=== PATIENT | female | born 1985 | race Caucasian/White ===

== ENCOUNTER 2021-11-29 10:45 | Outpatient (CLI) | payer OTHER, SELFPAY ==
--- NOTE | 2021-11-29 11:00 | CRLHL7_ITS ---
For Patients: As a result of the Century Cures Act, medical imaging exams and procedure reports are released immediately into your electronic medical record. You may view this report before your referring provider. If you have questions, please contact your health care provider. INDICATION: PCOS, PELVIC PAIN, LETROZOLE USE COMPARISON: none TECHNIQUE: 2D schwarz scale and color Doppler images were acquired of the pelvis using a transabdominal and transvaginal approach. Spectral Doppler evaluation of the ovaries also performed. FINDINGS: Sonographic images demonstrate a normal size and smooth outer contour of the uterus. Uterus measures 8.3 cm in length by 3.5 cm in AP diameter by 4.3 cm in transverse dimension. The myometrium has a mildly heterogeneous echotexture. A small right fundal uterine fibroid is present measuring 1.1 x 1.0 x 1.1 cm. An additional intramural fibroid is present within the right uterus measuring 1.0 x 0.8 x 0.9 cm. The endometrial lining appears normal and measures 9 mm in composite thickness. The right ovary measures 4.5 x 2.3 x 2.8 cm in size and the left ovary measures 4.4 x 2.5 x 3.2 cm. Multiple peripherally oriented follicles are present. Ovarian volume 15 cc on the right and 18 cc on the left. The ovaries demonstrate normal arterial and venous blood flow on color Doppler analysis. Normal spectral Doppler evaluation of both ovaries. There are no suspicious fluid collections within the cul-de-sac. IMPRESSION: PCOS. No torsion. No adnexal mass or excess pelvic free fluid. Two small uterine fibroids measuring 1.1 cm and 1.0 cm. Endometrial thickness measuring 9 millimeters. Dictated by Musa Stauffer MD @ 11/29/2021 11:58:03 AM (Electronically Signed)
--- OUTSIDE RECORDS SUMMARY | 2021-12-06 21:46 | XMS_ITS | Encounter Summary ---
:1985 Author Organization [facility] Address [address] [place] [address] Care Team Providers Name Role Phone Kristine Mendez MD Primary Care Provider Reason for Referral Specialty Diagnoses / Procedures Referred By Contact Refer [place] [address] [place] [address] Referral ID Status Reason Start Date Expiration Date Visits Requ ested Visits Authorized Reason for Visit Reason Comments CONSULT Encounter Details Date Type Department Care Team Description 01/02/2014 Initial Consult [facility] [address] (Primary Dx); Endocrinology JOHN Amato Thyroid mass; [address] Scanty or infrequent menstruation; Blvd. Thyroid nodule [place], [place] [id number] Social History Tobacco Use Types Packs/Day Years Used Date Smoking Tobacco: Never Alcohol Use Standard Drinks/Week Comments No 0 (1 standard drink = 0.6 oz pure alcoho l) Sex Assigned at Date Recorded Not on file documented as of this encounter Last Filed Vital Signs Vital Sign Reading Time Taken Comments Blood Pressure 114/74 01/02/2014 12:57 PM CDT Pulse 78 01/02/2014 12:57 PM CDT Temperature - - Respiratory Rate - - Oxygen Saturation - - Inhaled Oxygen Concentration - - Weight 59.9 kg (132 lb) 01/02/2014 12:57 PM CDT Height 177.2 cm (5' 9.75) 01/02/2014 12:57 PM CDT Body Mass Index 19.08 01/02/2014 12:57 PM CDT documented in this encounter Patient Instructions Patient InstructionsGregLima springer MBBS - 01/02/2014 1:34 PM CDT Thank you for enrolling in [employer]. Please follow the instructions below to securely access your online medical record. [employer] allows you to send messages to your doctor, view your test results, renewyour prescriptions, schedule appointments, and more. How Do I Sign Up? 1. In your Internet browser, go to: [email or web address] 2. Click on the Enter Activation Code link under the New User? section. You will see the New Member Sign Up page. 3. Enter your [employer] Activation Code exactly as it appears below. You will not need to use this code after you???ve completed the sign-up process. If you do not sign up before the expiration date, youmust request a new code. [employer] Activation Code: [email or web address] Expires: 02/01/2014 12:59 PM 4. Enter your Date of (mm/dd/yyyy), Home Phone Number and Zip Code as indicated, then click Next. You will be taken to the next sign-up page 5. Create a [employer] ID. This will be your [employer] login ID and cannot be changed, so think of one that is secure and easy to remember. 6. Create a [employer] password. You can change your password at any time. 7. Enter your Security Question and Answer. This can be used at a later time if you forget your password. Click Next. 8. Enter your e-mail address. You will receive e-mail notification when new information is availablein [employer]. 9. Click Sign In. You can now view your medical record. Additional Information If you have questions, you can call [phone] to talk to our [employer] staff. Remember, [employer] is NOT to be used for urgent needs. For medical emergencies, dial 911. Please make an appointment for thyroid biopsy with either Dr. Magaña or Dr. Khan. labs today. Follow up based on results. documented in this encounter Progress Notes Lima Wallis MBBS - 01/02/2014 4:35 PM CDT Physical exam addendum: Right-sided 3 cm palpable nodule felt on the right thyroid lobe. No discrete palpable thyroid nodules.. Lima Wallis MBBS - 01/02/2014 1:55 PM CDT Images from the original note were not included. Diagnoses and Orders Placed: Diagnosis (ICD9) ICD-9-CM 1. Hirsutism 704.1 2. Thyroid mass 246.9 3. Scanty or infrequent menstruation 626.1 4. Thyroid nodule 241.0 Orders Placed This Encounter Procedures ??? Dehydroepiandrosterone Sulfate ??? Androstenedione ??? 17 Hydroxyprogesterone ??? Testosterone free total females and children ??? Basic Metabolic Panel ??? Prolactin ??? Thyroid Aspiration, FNA with Image Guidance No orders of the defined types were placed in this encounter. Leann Magaña MD - 01/02/2014 1:51 PM CDT Progress Notes signed by Leann Magaña MD at 01/19/14916 Author: Leann Magaña MD Service: (none) Author Type: Physician Filed: 01/19/14916 Note Time: 01/02/14 144 Status: Signed Online Producer: Leann Magaña MD (Physician) NAME: YAMILET LORA MR#: [id number] CSN: [id number] AUTHENTICATING CLINICIAN: JOHN Eaton CONFIRM #: [id number] LOC: 432 CLINIC CONSULTATION DATE OF CONSULTATION: 01/02/2014 : 1985 REQUESTING PHYSICIAN: CHIEF COMPLAINT: Thyroid nodule. HISTORY OF PRESENT ILLNESS: Ms Lora is a 28-year-old female seen by me for the first time in the clinic. Recently patient was evaluated by her PCP for a neck lump that was found out initially by her mother. Later, she had a thyroid ultrasound on 01/01/2014 which showed a single large 2.7 x 1.9 cm mixed echogenic nodule at the right middle mid thyroid lobe. Since then, patient also had been noticing it. She denies any neck pressure symptoms such as trouble swallowing, trouble breathing, she is choking, coughing. Patient also had recent thyroid function tests which are within the normal range, and a TPO antibodyis still pending. She denies any excessive fatigue, temperature intolerance, bowel symptoms. She reports that her sleep is good. She denies any heart palpitations, jitteriness, shaking. Currently, she denies the intake of any ckzh-nea-rktxrzc thyroid or iodine products. She denies history of radiationto the head or neck. FAMILY HISTORY: She denies any family history of thyroid cancer or any other thyroid problems. In terms of menstrual history, patient has had irregular menstrual periods since her teenage. She was on control medications for a year a few years ago, and then again she was on Loestrin last year but that was stopped after a year. Sometimes she feels that she is not able to tolerate the control medications very well because of the upset stomach. Currently, she is not planning to conceive in the next 2-3 years. She also reports excessive hair growth on the face, mostly on the chin and the side bones, lower abdomen and sometimes on the breasts which are noted mostly thick and dark. These have been going on since her college time and has been stable. She denies any voice changes. She reports on and off acne onthe face. She denies any hair loss from the scalp. She denies any history of diabetes mellitus or impaired glucose tolerance, hyperlipidemia. She reports that both her elder sister and younger sister have irregular menstrual periods and they both were diagnosed with polycystic ovarian syndrome. None of her sisters have kids so far. PAST MEDICAL HISTORY: No other medical problems. PAST SURGICAL HISTORY: [place] tooth extraction. FAMILY HISTORY: Reviewed and updated in [facility]. SOCIAL HISTORY: Reviewed and updated in [facility]. MEDICATIONS: Reviewed and updated in [facility]. ALLERGIES: Reviewed and updated in [facility]. REVIEW OF SYSTEMS: All the 12 systems are reviewed and are negative except those discussed in HPI. EXAM: VITAL SIGNS: 114/74, pulse of 78, weight of 132 pounds. GENERAL: Alert, cooperative, no distress, appears stated age. No cushingoid features. OROPHARYNX: Normal findings: Buccal mucosa normal. EYES: Conjunctivae/corneas clear. PERRL, EOM's intact. EARS: Normal. NECK: Supple, symmetrical, trachea midline, no adenopathy, no carotid bruit and no JVD. THYROID: Not enlarge, symmetric, no tenderness, no palpable nodule. LUNGS: Clear to auscultation. HEART: Regular rate and rhythm, S1, S2 normal, no murmur, click, rub or gallop. ABDOMEN: Soft, non-tender; bowel sounds normal; no masses, no organomegaly. No abdominal striae noted. EXTREMITIES: Normal, atraumatic, no cyanosis or edema. SKIN: Warm and dry. No hyperpigmentation, vitiligo, or suspicious lesions. PULSES: 2+ and symmetric. NEURO: Normal without focal findings. Mental status, speech normal, alert and oriented x3. Reflexes normal and symmetric. On the skin there are multiple hair shafts that are shaved noted on the chin and on the side bones and also on the lower abdomen. LABS: Reviewed in [facility]. Recent TSH was 1.31 on 01/01/2014. PLAN: 1. Right-sided thyroid nodule. 2. Hirsutism. 3. Scanty irregular menstrual periods every 60-90 days. 4. Family history of PCOS. ASSESSMENT: 1. For right-sided thyroid nodule today, I did show her the thyroid ultrasound and discussed about the nodule, progression of the thyroid nodules. I would like to proceed with FNA and she will and follow up will be based upon the results. I did discuss about the procedure of the FNA and the different kinds of results associated with it. 2. For hirsutism, scanty, irregular menstrual periods. I would like to check all her androgens alongwith the prolactin. If she has any high level of androgens I would like to start her on control medication along with spironolactone. Today, I discussed in detail about the side effects of control pills along with spironolactone. She needs to have another potassium check if in 1 week if she were to start her on spironolactone. Also discussed that spironolactone may take about 4-6 months for her to see any change in the hair growth on the face. 3. Today and based upon her body habitus, my suspicion for Leia's is very low so I am not screening her for subclinical [place]'s. Total time 60 minutes. More than half of the time was counseling time regarding the thyroid nodule and also the diagnosis of PCOS. SP:MEDQ C: CONFIRM #: [id number] documented in this encounter Plan of Treatment Not on filedocumented as of this encounter Visit Diagnoses Diagnosis Hirsutism - Primary Thyroid mass (HRC) Unspecified disorder of thyroid Scanty or infrequent menstruation Thyroid nodule (HRC) Nontoxic uninodular goiter documented in this encounter Care Teams Elevator Constructor Supervisor Relationship Specialty Start Date End Date Kristine Mendez MD PCP - General 01/01/14 [address] [place] [address] documented as of this encounter
--- OUTSIDE RECORDS SUMMARY | 2021-12-06 21:46 | XMS_ITS | Encounter Summary ---
:1985 Author Organization [facility] Address [address] [place] [address] Care Team Providers Name Role Phone Kristine Mendez MD Primary Care Provider Reason for Visit Reason Comments RESULTS, TEST Encounter Details Date Type Department Care Team Description 01/01/2014 Telephone [facility] Pete Mendez MD RESULTS, TEST Medicine [address] [facility] [address] [place] [address] [place] [address] [phone] Social History Tobacco Use Types Packs/Day Years Used Date Smoking Tobacco: Never Alcohol Use Standard Drinks/Week Comments No 0 (1 standard drink = 0.6 oz pure alcoho l) Sex Assigned at Date Recorded Not on file documented as of this encounter Nursing Notes Kristine Mendez MD - 01/01/2014 12:29 PM CDT Thyroid US confirms large 2.7x1.9 cm right thyroid nodule, discussed with patient, she has Endo apptset up tomorrow to further discuss timing of biopsy, as this nodule seemed to arise rapidly in past 3 weeks and has reportedly enlarged further since that time. She had no questions. documented in this encounter Plan of Treatment Not on filedocumented as of this encounter Visit Diagnoses Not on filedocumented in this encounter Care Teams Telegraph Printer Mechanic Relationship Specialty Start Date End Date Kristine Mendez MD PCP - General 01/01/14 [address] [address] [place] [address] documented as of this encounter
--- OUTSIDE RECORDS SUMMARY | 2021-12-06 21:46 | XMS_ITS | Encounter Summary ---
:1985 Author Organization [employer] Address [address] [place] [address] Care Team Providers Name Role Phone Kristine Mendez MD Primary Care Provider Encounter Details Date Type Department Care Team Description 01/02/2014 Lab Visit [facility] [address] Thyroid m ass; Laboratory Hirsutism; [facility] Scanty or infrequent menstru ation; [place] [address] Thyroid nodule [phone] Social History Tobacco Use Types Packs/Day Years Used Date Smoking Tobacco: Never Alcohol Use Standard Drinks/Week Comments No 0 (1 standard drink = 0.6 oz pure alcoho l) Sex Assigned at Date Recorded Not on file documented as of this encounter Plan of Treatment Not on filedocumented as of this encounter Procedures Procedure Name Priority Date/Time Associated Comments Diagnosis DEHYDROEPIANDROSTERONE Routine 01/02/2014 1:52 Thyroid m ass Results for SULFATE PEDS PM CDT Hirsutism this procedure Scanty or are in the infrequent results menstruation section. Thyroid nodule ANDROSTENEDIONE Routine 01/02/2014 1:52 Thyroid mass Results for PM CDT Hirsutism this procedure [place] or are in the infrequent results menstruation section. Thyroid nodule 17 HYDROXYPROGESTERONE Routine 01/02/2014 1:52 Thyroid m ass Results for PM CDT Hirsutism this procedure [place] or are in the infrequent results menstruation section. Thyroid nodule TESTOSTERONE FREE AND TOTAL, Routine 01/02/2014 1:52 Thy roid mass Results for FEMALE OR CHILDREN PM CDT Hirsutism this procedure Sc[place]y or are in the infrequent results menstruation section. Thyroid nodule BASIC METABOLIC PANEL Routine 01/02/2014 1:52 Thyroid ma ss Results for PM CDT Hirsutism this procedure [place] or are in the infrequent results menstruation section. Thyroid nodule PROLACTIN Routine 01/02/2014 1:52 Thyroid mass Results for PM CDT Hirsutism this procedure [place] or are in the infrequent results menstruation section. Thyroid nodule documented in this encounter Results Prolactin (01/02/2014 1:52 PM CDT) athologist Signature Prolactin 7.3 2.8 - 29.2 HP CONVERSION ng/mL Specimen Anatomical Collection Method Collection Time Receive d Time (Source) Location / / Volume Laterality 01/02/2014 1:52 PM 4 4:10 CDT PM CDT [facility] Performing Organization Address City/State/ZIP Code Phon e Number HP CONVERSION Basic Metabolic Panel (01/02/2014 1:52 PM CDT) athologist Signature Creatinine Serum 0.8 0.4 - 1.3 HP CONVERSION mg/dL Lab Glucose 99 60 - 100 HP CONVERSION mg/dL Bicarbonate 28 23 - 33 HP CONVERSION mmol/L Chloride 108 98 - 110 HP CONVERSION Potassium 3.8 3.5 - 5.2 HP CONVERSION Sodium 139 137 - 147 HP CONVERSION Blood Urea <10 5 - 26 HP CONVERSION Nitrogen mg/dL Calcium 8.9 8.5 - 10.5 HP CONVERSION mg/dL Est GFR >60 >60 HP CONVERSION Am Est GFR Non-Afr >60 >60 HP CONVERSION Am Comment: Normal>60, moderate decrease 30 - 59, se mirta decrease 15 - 29, renal failure <15 mL/min/1.73 m2 NOTE: ??Choose the eGFR result above antwon ropriate for the race of the patient. Specimen Anatomical Collection Method Collection Time Receive d Time (Source) Location / / Volume Laterality 01/02/2014 1:52 PM 4 1:52 CDT PM CDT Narrative HP CONVERSION - 01/02/2014 2:31 PM CDT Performed at [facility], [address] [place] [id number] Lima Carterjuan jose [facility] LAB_1 Performing Organization Address City/[facility]/ZIP Code Phon e Number HP CONVERSION TESTOSTERONE FREE TOTAL FEMALES AND CHILDREN (01/02/2014 1:52 PM CDT) Analysis Performed At [facility] Time Signature Testosterone 36 9 - 55 HP CONVERSION Female or ng/dL Children Comment: Total Testosterone, Females 18 years and older Premenopausal ??9-55 ng/dL Postmenopausal 5-32 ng/dL REFERENCE INTERVAL: Testosterone, LC-MS/ MS Access complete set of age- and/or gende r-specific reference intervals for this test in the [employer] Test Directory ([employer]). Test developed and characteristics deter mined by [employer]. See Compliance Statement B : [employer]/CS Testosterone Free Female and Child 3.6 0.8 - 7.4 pg/mL HP CONVERSION Comment: To convert to pmol/L, multiply pg/mL by 3.47 The concentration of Free Testosterone i s derived from a mathematical expression based on the con stant for the binding of testosterone to sex hormone b inding globulin. Testosterone, Free LC-MS/MS Reference In terval for Females 18 years and older Postmenopausal: 0.6 - 3.8 pg/mL REFERENCE INTERVAL: Testosterone, Free L C-MS/MS Access complete set of age- and/or gende r-specific reference intervals for this test in the [employer] [facility] Test Directory ([employer]). Sex Hormone Binding Globulin 72 30 - 135 nmol/L HP CONVERSION Comment: REFERENCE INTERVAL: Sex Hormone Binding Globulin Access complete set of age- and/or gende r-specific reference intervals for this test in the [employer] [facility] Test Directory ([employer]). Specimen Anatomical Collection Method Collection Time Receive d Time (Source) Location / / Volume Laterality 01/02/2014 1:52 PM 4 4:10 CDT PM CDT Narrative HP CONVERSION - 01/05/2014 4:30 AM CDT Performed at [facility] [address] [place] [address] Lima Garzagian [facility] LAB_1 Performing Organization Address City/[facility] Code Phon e Number HP CONVERSION 17 HYDROXYPROGESTERONE (01/02/2014 1:52 PM CDT) athologist Signature 17-Hydroxyproge 51 ng/dL HP CONVERSION sterone, Serum Comment: -- REFERENCE VALUE -- < 80 (Follicular) <285 (Luteal) Specimen Anatomical Collection Method Collection Time Receive d Time (Source) Location / / Volume Laterality 01/02/2014 1:52 PM 4 4:10 CDT PM CDT Narrative HP CONVERSION - 01/06/2014 5:45 PM CDT Performed at [facility] [address] [place] [id number] Lima Garzagian [facility] LAB_1 Performing Organization Address [facility] Phon e Number HP CONVERSION ANDROSTENEDIONE (01/02/2014 1:52 PM CDT) athologist Signature Androstenedione 1.250 0.260 - HP CONVERSION 2.140 ng/mL Comment: INTERPRETIVE INFORMATION: Androstenedion e, Females 18 years and older Post-menopausal: 0.13-0.82 ng/mL REFERENCE INTERVAL: Androstenedione by T MS Access complete set of age- and/or gende r-specific reference intervals for this test in the [employer] [facility] Test Directory ([employer]). Test developed and characteristics deter mined by [employer]. See Compliance Statement B : [employer]/CS Specimen Anatomical Collection Method Collection Time Receive d Time (Source) Location / / Volume Laterality 01/02/2014 1:52 PM 4 5:01 CDT PM CDT Narrative HP CONVERSION - 01/04/2014 6:34 PM CDT Performed at [facility] [address] [place] [address] Jayashreeivan Kadi [facility] LAB_1 Performing Organization Address [facility] Phon e Number HP CONVERSION DEHYDROEPIANDROSTERONE SULFATE PEDS (01/02/2014 1:52 PM CDT) Component Value Ref Test Analysis Performed At [facility] Range Method Time Signature Dehydroepiandrosterone 172 45 - 270 HP CONV ERSION Sulfate ug/dL Comment: REFERENCE INTERVAL: DHEAS Access complete set of age- and/or gende r-specific reference intervals for this test in the [employer] [facility] Test Directory ([employer]). Specimen Anatomical Collection Method Collection Time Receive d Time (Source) Location / / Volume Laterality 01/02/2014 1:52 PM 4 5:01 CDT PM CDT Narrative HP CONVERSION - 01/04/2014 9:05 AM CDT Performed at [facility] [address] [place] [address] Liam Garzagian [facility] Performing Organization Address City/State/ZIP Code Phon e Number HP CONVERSION documented in this encounter Visit Diagnoses Diagnosis Thyroid mass (HRC) Unspecified disorder of thyroid Hirsutism Scanty or infrequent menstruation Thyroid nodule (HRC) Nontoxic uninodular goiter documented in this encounter Care Teams International Flight Attendant Relationship Specialty Start Date End Date Kristine Mendez MD PCP - General 01/01/14 [address] [place] [address] documented as of this encounter
--- OUTSIDE RECORDS SUMMARY | 2021-12-06 21:46 | XMS_ITS | Encounter Summary ---
:1985 Author Organization [employer] [facility] Address [address] [place] [address] Care Team Providers Name Role Phone Kristine Mendez MD Primary Care Provider Reason for Visit Procedure/Equipment (Routine) - Canceled Specialty Diagnoses / Procedures Referred By Contact Refer red To Contact Diagnoses Left breast mass Madeleine Page, NET APPLICATION SUPPORT SPECIALIST, PERSONAL COACH [place] [address] [place] [address] Referral ID Status Reason Start Date Expiration Date Visits V isits Requested Authorized [id number] Canceled 05/28/2019 08/26/2020 1 1 Encounter Details Date Type Department Care Team Description 06/03/2019 Ancillary Procedure [facility] [address] Madeleine Page , Left breast mass Mammography NET APPLICATION SUPPORT SPECIALIST, PERSONAL COACH [address] [facility] [address] [place] [address] [phone] Social History Tobacco Use Types Packs/Day Years Used Date Smoking Tobacco: Never Smokeless Tobacco: Never Alcohol Use Standard Drinks/Week Comments Yes 0 (1 standard drink = 0.6 oz pure alcoho l) 1-2/week Alcohol Habits Answer Date Recorded How often do you have a drink containing alcohol? Not asked How many drinks containing alcohol do you have on a typical Not asked day when you are drinking? How often do you have six or more drinks on one occasion? No t asked Comment: 1-2/01/10/2019 Sex Assigned at Date Recorded Not on file documented as of this encounter Plan of Treatment Not on filedocumented as of this encounter Visit Diagnoses Diagnosis Left breast mass Lump or mass in breast documented in this encounter Care Teams Tractor Trailer Moving Van Driver Relationship Specialty Start Date End Date Kristine Mendez MD PCP - General 01/01/[address] [place] [address] documented as of this encounter
--- OUTSIDE RECORDS SUMMARY | 2021-12-06 21:46 | XMS_ITS | Encounter Summary ---
:1985 Author Organization [employer] Address [address] [place] [address] Care Team Providers Name Role Phone Kristine Mendez MD Primary Care Provider Encounter Details Date Type Department Care Team Description 04/12/2018 edith Osuna [phone] Social History Tobacco Use Types Packs/Day Years Used Date Smoking Tobacco: Never Smokeless Tobacco: Never Alcohol Use Standard Drinks/Week Comments No 0 (1 standard drink = 0.6 oz pure alcoho l) rare Alcohol Habits Answer Date Recorded How often do you have a drink containing alcohol? Not asked How many drinks containing alcohol do you have on a typical Not asked day when you are drinking? How often do you have six or more drinks on one occasion? No t asked Comment: rare 12/17/2015 Sex Assigned at Date Recorded Not on file documented as of this encounter Progress Notes FAMILY MEDICINEEDITH PROVIDER - 04/12/2018 12:00 AM CST edith Treatment Plan Diagnosis Sinusitis with Ear Pain Visit Date April 12, 2018 Yamilet Foxall Date of : 81 Provider Annie Charles, Nurse Practitioner Note From Provider Michael Woodard! Sorry to hear you are not feeling well. I have attached a treatment plan and sent in a prescription for you! I hope you feel better soon! Annie Treatment Plan Since you have a bacterial infection, let???s try an antibiotic. I???ve also included a prescriptionnasal steroid to reduce your pain and inflammation. The antibiotic and nasal steroid will work effectively on both your sinus and ear symptoms. I sent your prescriptions to [facility] [id number]. I???ve also listed a few self-care tips to reduce inflammation and soothe your symptoms while the antibiotic kills the bacteria. If your symptoms don???t improve after 4 days, or if you have questions, please select Help to Request a Call Back and we???ll adjust your treatment for free. Order(s) amoxicillin 500 mg capsule Take 2 capsule by mouth three times a day as directed for 7 days Note: Refills: None fluticasone 50 mcg/actuation spray,suspension [place] 1-2 spray into both nostrils once a day as needed for 30 days Note: Refills: None Sent To: [id number] [employer] [employer] [place], [place] [id number] Treatment Plan Self Care Tip Topics Ease Sinus Inflammation and Ear Pain with Nasal Steroids Inflammation Relief with Ibuprofen What to Expect Our goal is to treat the infection and reduce inflammation in order to promote drainage to ease yoursinus and ear pain. Reducing inflammation will make you feel better quickly. If you follow the recommendations I made in the Treatment section, your symptoms should begin to improve in 4 days of following this treatment plan. If your symptoms haven???t improved after 4 days, select Help to Request a Call Back and we???ll call you back in about 30 minutes to adjust your treatment for free. What to Watch Out For Give us a call immediately if you experience: ??? Vision changes ??? Redness and swelling of the eyes or face ??? Increasing congestion ??? Worsening pain ??? High fevers ??? Persistent or worsening ear pain ??? Bloody or foul smelling ear drainage ??? Skull pain behind your ear ??? Hearing loss ??? Difficulty swallowing My Conditions, Orders, Allergies as of April 12, 2018 Standard condition list None Current orders fluticasone (fluticasone) amoxicillin (amoxicillin) Allergies None [email or web address] Information [email or web address] by [employer] We are an online clinic open 20/11. If you have any questions or comments about this visit, please call or email [email or web address] 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
--- OUTSIDE RECORDS SUMMARY | 2021-12-06 21:46 | XMS_ITS | Encounter Summary ---
:1985 Author Organization [facility] Address [address] [place] [address] Care Team Providers Name Role Phone Kristine Mendez MD Primary Care Provider Encounter Details Date Type Department Care Team Description 01/01/2014 Lab Visit [facility] Thyroid mass; [address] [facility] Lymphadenopathy [place], [place] [address] Social History Tobacco Use Types Packs/Day Years Used Date Smoking Tobacco: Never Alcohol Use Standard Drinks/Week Comments No 0 (1 standard drink = 0.6 oz pure alcoho l) Sex Assigned at Date Recorded Not on file documented as of this encounter Plan of Treatment Not on filedocumented as of this encounter Procedures Procedure Name Priority Date/Time Associated Diagnosis Comme nts HIV ANTIBODY Routine 01/01/2014 11:02 Lymphadenopathy Results for this AM CDT procedure are i n the results section. THYROID STIMULATING Routine 01/01/2014 11:02 Thyroid mass Resu lts for this HORMONE AM CDT procedure are i n the results section. COMPLETE BLOOD Routine 01/01/2014 11:02 Thyroid mass Results for this COUNT-W/DIFF AM CDT Lymphadenopathy procedure ar e in the results section. DIFFERENTIAL Routine 01/01/2014 11:02 Results for this AM CDT procedure are i n the results section. FREE T4 Routine 01/01/2014 11:02 Thyroid mass Results for this AM CDT procedure are i n the results section. ANTITHYROID Routine 01/01/2014 11:02 Thyroid mass Results for this PEROXIDASE AM CDT procedure are i n the results section. MONO TEST Routine 01/01/2014 11:02 Lymphadenopathy Results for this AM CDT procedure are i n the results section. documented in this encounter Results (ABNORMAL) Differential (01/01/2014 11:02 AM CDT) [facility] Method Time Signature Absolute 1.6 (L) 1.8 - 8.0 HP CONVERSION Neutrophils Absolute 1.6 1.1 - 4.0 HP CONVERSION Lymphocytes Absolute 0.5 0.2 - 0.8 HP CONVERSION Monocytes Absolute 0.3 0.0 - 0.5 HP CONVERSION Eosinophils Absolute 0.1 0.0 - 0.2 HP CONVERSION Basophils Specimen Anatomical Collection Method Collection Time Receive d Time (Source) Location / / Volume Laterality 01/01/2014 11:02 01/01/2014 AM CDT 11:02 AM CDT Narrative HP CONVERSION - 01/01/2014 11:19 AM CDT Performed at [facility] [address] [place] [address] Kristine Mendez MD LAB_1 Performing Organization Address [facility] Phon e Number HP CONVERSION HIV ANTIBODY (01/01/2014 11:02 AM CDT) athologist Signature HIV 1/HIV 2 Non-React Non-Reacti HP CONVERSION ve Specimen Anatomical Collection Method Collection Time Receive d Time (Source) Location / / Volume Laterality 01/01/2014 11:02 01/01/2014 3:54 AM CDT PM CDT Kristine Mendez MD LAB_1 Performing Organization Address [facility] Phon e Number HP CONVERSION Whitman Test (01/01/2014 11:02 AM CDT) [facility] Method Time Signature Mononucleosis Negative Negative HP CONVERSION Screen Specimen Anatomical Collection Method Collection Time Receive d Time (Source) Location / / Volume Laterality 01/01/2014 11:02 01/01/2014 AM CDT 11:02 AM CDT Narrative HP CONVERSION - 01/01/2014 11:14 AM CDT Performed at [facility] [address] [place] [address] Kristine Mendez MD LAB_1 Performing Organization Address [facility] Phon e Number HP CONVERSION Antithyroid Peroxidase (01/01/2014 11:02 AM CDT) athologist Signature Thyroid 2.8 0.0 - 9.0 HP CONVERSION Peroxidase (TPO) Antibodies Specimen Anatomical Collection Method Collection Time Receive d Time (Source) Location / / Volume Laterality 01/01/2014 11:02 01/01/2014 4:01 AM CDT PM CDT Narrative HP CONVERSION - 01/02/2014 2:51 PM CDT Performed at [facility] [address] [place] [id number] Kristine Mendez MD LAB_1 Performing Organization Address City/State/ZIP Code Phon e Number HP CONVERSION Complete Blood Count W/Diff (01/01/2014 11:02 AM CDT) athologist Signature White Blood Cell 4.1 3.8 - 11.0 HP CONVERSIO N Count Red Blood Cell 5.13 3.70 - HP CONVERSION Count 5.20 Hemoglobin 15.0 11.8 - HP CONVERSION 15.5 g/dL Hematocrit 45.3 35.0 - HP CONVERSION 46.0 % Mean Corpuscular 88.1 80.0 - HP CONVERSION Volume 100.0 fL RDW 12.5 11.0 - HP CONVERSION 15.0 % Platelet Count 266 140 - 450 HP CONVERSION Specimen Anatomical Collection Method Collection Time Receive d Time (Source) Location / / Volume Laterality 01/01/2014 11:02 01/01/2014 AM CDT 11:02 AM CDT Narrative HP CONVERSION - 01/01/2014 11:19 AM CDT Performed at [facility] [address] [place] [address] Kristine Mendez MD LAB_1 Performing Organization Address City/State/ZIP Code Phon e Number HP CONVERSION Free T4 (01/01/2014 11:02 AM CDT) athologist Signature Thyroxine, Free 1.1 0.8 - 1.8 HP CONVERSION ng/dL Specimen Anatomical Collection Method Collection Time Receive d Time (Source) Location / / Volume Laterality 01/01/2014 11:02 01/01/2014 3:54 AM CDT PM CDT Kristine Mendez MD LAB_1 Performing Organization Address City/[facility] Phon e Number HP CONVERSION THYROID STIMULATING HORMONE (01/01/2014 11:02 AM CDT) P athologist Signature Thyroid 1.31 0.20 - HP CONVERSION Stimulating 4.50 Hormone Specimen Anatomical Collection Method Collection Time Receive d Time (Source) Location / / Volume Laterality 01/01/2014 11:02 01/01/2014 3:54 AM CDT PM CDT Kristine Mendez MD LAB_1 Performing Organization Address City/State/ZIP Code Phon e Number HP CONVERSION documented in this encounter Visit Diagnoses Diagnosis Thyroid mass (HRC) Unspecified disorder of thyroid Lymphadenopathy Enlargement of lymph nodes documented in this encounter Care Teams Porter Marina Relationship Specialty Start Date End Date Kristine Mendez MD PCP - General 01/01/14 [address] [place] [address]BB[address] [id number] documented as of this encounter
--- OUTSIDE RECORDS SUMMARY | 2021-12-06 21:46 | XMS_ITS | Encounter Summary ---
:1985 Author Organization [facility] Address [address] [place] [address] Care Team Providers Name Role Phone Unavailable Primary Care Provider Unavailable Encounter Details Date Type Department Care Team Description 07/21/2012 Notes/Orders [place] [facility] Jennifer Aguilera, Cystitis [address] [facility] [place] LOADING DOCK HELPER, ALTERNATIVE ENERGY TECHNICIAN [place], [place] [address] Social History Tobacco Use Types Packs/Day Years Used Date Smoking Tobacco: Never Alcohol Use Standard Drinks/Week Comments No 0 (1 standard drink = 0.6 oz pure alcoho l) Sex Assigned at Date Recorded Not on file documented as of this encounter Nursing Notes Kirsten Quiroz RN - 07/23/2012 6:02 PM CDT Quick Note: Result noted Phoned pt Kirsten Quiroz RN 07/23/2012, 6:02 PM Arabella Coles RN - 07/22/2012 6:13 PM CDT Quick Note: Results noted. Started on Bactrim DS. Will await sensitivities.Arabella Coles RN 07/22/2012, 6:13 PM documented in this encounter Plan of Treatment Not on filedocumented as of this encounter Procedures Procedure Name Priority Date/Time Associated Diagnosis Comme nts UA, NO MICROSCOPIC Routine 07/21/2012 12:10 PM Re sults for this CDT procedure are i n the results section. URINE CULTURE Routine 07/21/2012 12:10 PM Cystitis Results for this CDT procedure are i n the results section. documented in this encounter Results (ABNORMAL) UA, NO MICROSCOPIC (07/21/2012 12:10 PM CDT) [facility] [employer] Method Time Signature Urine Color Yellow [facility] Urine Clarity Clear [facility] Sp Gr 1.020 1.005 - [facility] 1.03 Leuk Tr (A) NEG [facility] Nitr Negative NEG [facility] pH 5.0 4.5 - 8.0 [facility] Prot Negative NEG mg/dl [facility] Gluc Negative NEG [facility] Ket Negative NEG [facility] Urob 0.2 0.2 - 1.0 [facility] EU/dl Bili Negative NEG [facility] Blood Tr (A) NEG [facility] Specimen Anatomical Collection Method Collection Time Receive d Time (Source) Location / / Volume Laterality 07/21/2012 12:10 07/21/2012 4:03 PM CDT PM CDT Jennifer Alexis APRN, ALTERNATIVE ENERGY TECHNICIAN LAB_1 Performing Organization Address City/State/ZIP Code Phon e Number [facility] [phone] [address] URINE CULTURE (07/21/2012 12:10 PM CDT) Component Value Ref Test Analysis Performed At [facility] [employer] Range Method Time Signature Specimen Urine [facility] Description Midstream Special Unspecified [facility] Requests Culture > 100,000 [facility] col/ml Escherichia coli Report Status Final [facility] 07/23/2012 Organism > 100,000 [facility] col/ml Escherichia coli Specimen Anatomical Collection Method Collection Time Receive d Time (Source) Location / / Volume Laterality 07/21/2012 12:10 07/21/2012 4:01 PM CDT PM CDT Organism Antibiotic Method Susceptibility > 100,000 col/ml Amox/K Clavulanate YADI <=8/4 escherichia coli Susceptible SUSCEPTIBLE > 100,000 col/ml Ampicillin YADI >16 escherichia coli Resistant Resistant > 100,000 col/ml Ampicillin/Sulbactam YADI >16/8 escherichia coli Resistant Resistant > 100,000 col/ml Cefazolin YADI <=8 escherichia coli Susceptible SUSCEPTIBLE > 100,000 col/ml Cephalexin YADI 16 escherichia coli Intermediate Intermediate > 100,000 col/ml Ciprofloxacin YADI >2 escherichia coli Resistant Resistant > 100,000 col/ml Gentamicin YADI <=1 escherichia coli Susceptible SUSCEPTIBLE > 100,000 col/ml Nitrofurantoin YADI <=32 escherichia coli Susceptible SUSCEPTIBLE > 100,000 col/ml Piper/tazobactam YADI <=16 escherichia coli Susceptible SUSCEPTIBLE > 100,000 col/ml Tetracycline YADI >8 escherichia coli Resistant Resistant > 100,000 col/ml Trimethoprim YADI >8 escherichia coli Resistant Resistant > 100,000 col/ml Trimeth/Sulfa YADI >2/38 escherichia coli Resistant Resistant Jennifer Alexis APRN, CNP LAB_1 Performing Organization Address City/State/[facility] Code [facility] e Number [facility] [phone] [address] documented in this encounter Visit Diagnoses Diagnosis Cystitis Cystitis, unspecified documented in this encounter
--- OUTSIDE RECORDS SUMMARY | 2021-12-06 21:46 | XMS_ITS | Encounter Summary ---
:1985 Author Organization [facility] Address [address] [place] [address] Care Team Providers Name Role Phone Kristine Mendez MD Primary Care Provider Reason for Visit Reason Comments BREAST LUMP Encounter Details Date Type Department Care Team Description 05/23/2019 Nurse Triage [facility] Tiana Mcfarlane, DO BREAST LUMP Services-CUPOLA LINER HELPER [address] [facility] Ad [id number] [place] [address], [address] [place] [address] [place] [address] [phone] Social History Tobacco Use Types Packs/Day Years [...] on one occasion? No t asked Comment: 1-2/week 01/10/2019 Sex Assigned at Date Recorded Not on file documented as of this encounter Nursing Notes Bianca Penn RN - 05/23/2019 8:07 AM CST Reason for Disposition ??? Breast lump Protocols used: BREAST [id number] Non-tender, dime sized, slightly mobile breast lump at 12:00 slightly above areola in left breast. First noticed last night. No fam hx of breast cancer. Pt denies hx of benign breast lumps but underwriter mortgage loan noticed in hx in same breast. Denies redness, warmth, nipple discharge or flaking of nipple. Appointment made per protocol. Problem list reviewed as related to this call. Future Appointments Provider Department Center 05/23/2019 10:30 AM Madeleine Page APRN, DATA ANALYTICS SPECIALIST [facility]-CUPOLA LINER HELPER PN [facility] [place] documented in this encounter Plan of Treatment Not on filedocumented as of this encounter Visit Diagnoses Not on filedocumented in this encounter Care Teams Ivf Embryologist Relationship Specialty Start Date End Date Kristine Mendez MD PCP - General 01/01/[address] [place] [address] documented as of this encounter
--- OUTSIDE RECORDS SUMMARY | 2021-12-06 21:46 | XMS_ITS | Encounter Summary ---
:1985 Author Organization [employer] Address [address] [place] [address] Care Team Providers Name Role Phone Unavailable Primary Care Provider Unavailable Reason for Visit Reason Comments INFECTION, URINARY TRACT Encounter Details Date Type Department Care Team Description 07/21/2012 Office Visit [facility] Cystitis (Primary Dx) [address] [place], [place] [address] Social History Tobacco Use Types Packs/Day Years Used Date Smoking Tobacco: Never Alcohol Use Standard Drinks/Week Comments No 0 (1 standard drink = 0.6 oz pure alcoho l) Sex Assigned at Date Recorded Not on file documented as of this encounter Last Filed Vital Signs Vital Sign Reading Time Taken Comments Blood Pressure - - Pulse - - Temperature 37.1 ??C (98.8 ??F) 07/21/2012 12:21 PM CDT Respiratory Rate 20 07/21/2012 12:21 PM CDT Oxygen Saturation 100% 07/21/2012 12:21 PM CDT Inhaled Oxygen Concentration - - Weight 55.8 kg (123 lb) 07/21/2012 12:21 PM CDT Height - - Body Mass Index 18.03 09/15/2011 1:05 PM CDT documented in this encounter Patient Instructions Patient InstructionsNahomi Diane, ASAD, BURN NURSE - 07/21/2012 12:38 PM CDT Cystitis You have been diagnosed with cystitis which means your bladder is inflamed or irritated. This can becaused by infection (UTI), reactions to certain drugs, radiation therapy, or irritants such as feminine hygiene spray, spermicidal jellies, bubble bath or use of catheters. Symptoms can be similar to those of a UTI such as pain or burning when you urinate, a persistent or strong urge to urinate, only able to pass small amounts of urine, blood in the urine, discomfort in the pelvic area, a feeling of pressure in the lower abdomen, or developing incontinence or inability to hold your urine. If you were directed to take medication please do so. Read and follow all instructions from the international sourcing manager before using. In order to keep yourself more comfortable you should: ?? Drink plenty of fluids ?? Urinate frequently ?? Gently wash the skin around the vagina and anus. Do not use harsh soaps ?? Avoid using deodorant sprays or feminine products in the genital area ?? Avoid using bubble bath ?? Place a heating pad over the lower abdomen ?? Take a Sizt bath. Soak in a tub of warm water for 15-20 minutes. Depending on your symptoms and laboratory findings you may be referred to a specialist or your primary care provider for follow up. If you were referred to a specialist or primary care if you do not have a provider, you should be hearing form them in a few days. If you do not, please call the number below to make an appointment. Call or seek medical attention IMMEDIATELY if: ?? You or your child develop become unable to urinate ?? You or your child develop sever abdominal or back pain ?? You or your child develop sever nausea and vomiting Call the clinic or nurse line if: ?? You or your child develop a fever ?? The urine becomes cloudy or smelly ?? documented in this encounter Progress Notes Nahomi Diane APRN, CNP - 07/21/2012 4:06 PM CDT Addended by: NAHOMI MAYNARD on: 07/21/2012 04:06 PM Modules accepted: Orders, SmartSet Nahomi Diane APRN, CNP - 07/21/2012 4:06 PM CDT Nahomi Diane APRN, CNP - 07/21/2012 12:38 PM CDT Subjective Yamilet LORA is a 27 yr old female here with no one else, who presents with the complaint of increased frequency of urination, urgency and pain while voiding for 1 week. Patient states that she started having symptoms sunday and call the online clinic, she was prescribe a 3 day course of bactrim DS which she completed. Three days after completion of the antibiotic patient started to have mild urinary symptoms again and she states that symptoms are worsening. Course of treatment might have been short So infection was not totally clear but after the first Antibiotic treatment, symptoms was reduce from moderate to mild. HPI Yamilet LORA has treated symptoms at home with increased fluids. This has not helped. Patients also has no other symptoms. PMH Previous UTI YES . Last menstrual period was in may , patient state that she has been on control and recently stop so her menses are irregular but she is sure that she is not . Usingother form of control More than 4 UTI???s in a year No History of Renal Disease No Diabetes No Have you been hospitalized or had a surgical procedure within the past 2 weeks: NO ROS : NO, LMP: Medications: No current outpatient prescriptions on file. Allergies: Review of patient's allergies indicates no known allergies. Objective Vitals: Temp 98.8 ??F (37.1 ??C) Resp 20 Wt 123 lb (55.792 kg) SpO2 100% LMP 06/21/2012 General Apearance: in no acute distress, appears stated age, is appropriately dressed, speaks appropriately and alert Abdomen: Inspection flat Auscultation normal bowel sounds Tenderness none Masses none Organomegaly none CVA tenderness Not present UC: pending Assessment Cystitis Plan Another three days course of antibiotic was given to help clear infection. Test result shows trace amount of leukocyte And blood. See patient education and prescribed medications documented in this encounter Plan of Treatment Not on filedocumented as of this encounter Results URINE CULTURE (07/21/2012 12:10 PM CDT) Component Value Ref Test Analysis Performed At [facility] Range Method Time Signature Specimen [facility]rine [facility] Description Midstream Special Unspecified [facility] Requests Culture > 100,000 [facility] col/ml Escherichia coli Report Status Final [facility] 07/23/2012 Organism > 100,000 [facility] col/ml Escherichia coli Specimen Anatomical Collection Method [...] Trimeth/Sulfa YADI >2/38 escherichia coli Resistant Resistant Nahomi Alexis APRN, CNP LAB_1 Performing Organization Address City/State/ZIP Code [facility] e Number [facility] [phone] [address] documented in this encounter Visit Diagnoses Diagnosis Cystitis - Primary Cystitis, unspecified documented in this encounter
--- OUTSIDE RECORDS SUMMARY | 2021-12-06 21:46 | XMS_ITS | Encounter Summary ---
:1985 Author Organization [employer] Address [address] [place] [address] Care Team Providers Name Role Phone Unavailable Primary Care Provider Unavailable Reason for Visit Reason Comments Refill Encounter Details Date Type Department Care Team Description 07/31/2013 Refill Apolonia Martell MD Refill [address] [place] [address] [place] [address] [phone] (Wo rk) Social History Tobacco Use Types Packs/Day Years Used Date Smoking Tobacco: Never Alcohol Use Standard Drinks/Week Comments No 0 (1 standard drink = 0.6 oz pure alcoho l) Sex Assigned at Date Recorded Not on file documented as of this encounter Nursing Notes Shama Bullock - 08/04/2013 3:11 PM CDT [facility] to schedule a physical appt. Advised rx faxed for 28 days.Advised to call [phone] to schedule.DS Chanel Herman PA-C - 08/04/2013 8:46 AM CDT 28 faxed. Appt is needed. Jesica Peña - 08/02/2013 5:46 PM CDT Please advise on refill. Last qualifying visit with Chanel Herman PA-C 09/15/11. Due for oral contraceptive visit. No appointment scheduled at this time. Please advise refill and route to frontline for refill appt Requested Prescriptions Pending Prescriptions Disp Refills ??? norethindrone-ethinyl estradiol (MICROGESTIN FE 05/19, 28,) 1-20 mg-mcg per tablet [Pharmacy Med Name: MICROGESTIN FE 05/19 TAB ACTA] 84 tablet 0 Sig: Take 1 tablet by mouth daily (every 24 hours). documented in this encounter Plan of Treatment Not on filedocumented as of this encounter Visit Diagnoses Not on filedocumented in this encounter
--- OUTSIDE RECORDS SUMMARY | 2021-12-06 21:46 | XMS_ITS | Encounter Summary ---
:1985 [facility] Address [address] [place] [address] Care Team Providers Name Role Phone Kristine Mendez MD Primary Care Provider Reason for Referral Procedure/Equipment (Routine) - Incomplete Specialty Diagnoses / Procedures Referred By Contact Refer red To Contact Diagnoses Left breast mass Madeleine Page APRN, ENVIRONMENTAL HEALTH TECHNOLOGIST Procedures [place] [address] [place] [address] Referral ID Status Reason Start Date Expiration Date Visits V isits Requested Authorized [id number] Incomplete 05/23/2019 08/21/2020 1 1 N'S STUDIES LECTURER Procedure/Equipment (Routine) - Incomplete Specialty Diagnoses / Procedures Referred By Contact Refer red To Contact Diagnoses Left breast mass Madeleine Page APRN, ENVIRONMENTAL HEALTH TECHNOLOGIST Procedures YMM Mammogram Diag Bilat W 3D Brodie MM Mammogram Diag Bilat [address] [place] [address] Referral ID Status Reason Start Date Expiration Date Visits V isits Requested Authorized [id number] Incomplete 05/23/2019 08/21/2020 1 1 N'S STUDIES LECTURER Reason for Visit Reason Comments BREAST LUMP Left Encounter Details Date Type Department Care Team Description 05/23/2019 Office Visit [facility] Madeleine Page, Left breast mass (Primary Dx); Services-FOOD AND NUTRITION SERVICES SUPERVISOR ASAD, NAWAF Irregular menses [address], [address] [facility] [address] [place] [address] [phone] Social History Tobacco Use Types Packs/Day Years [...] Sign Reading Time Taken Comments Blood Pressure 127/82 05/23/2019 10:30 AM WOMEN'S STUDIES LECTURER Pulse 103 05/23/2019 10:30 AM WOMEN'S STUDIES LECTURER Temperature 36.9 ??C (98.4 ??F) 05/23/2019 10:30 AM WOMEN'S STUDIES LECTURER Respiratory Rate - - Oxygen Saturation - - Inhaled Oxygen Concentration - - Weight 63.5 kg (140 lb) 05/23/2019 10:30 AM WOMEN'S STUDIES LECTURER Height - - Body Mass Index 20.09 02/10/2019 1:19 PM CDT documented in this encounter Progress Notes Madeleine Page, ASAD, NAWAF - 05/23/2019 10:30 AM CST CC: Breast mood lump SUBJECTIVE: Yamilet Lora is a 34 y.o. female who presents with breast lump concerns. LMP: 05-04-2019 She shoveled snow this weekend. Pain started in her left armpit. She is soon to was related to over using muscles in her chest and left arm as both areas were sore . This morning she felt a lump today in left breast. The pain is described in her whole breast and radiates down her left arm and axilla. -Describes it as dull ache. Intermittent. Nipple discharge: none Skin puckering or contour changes: None The symptoms are relieved by: Heat. The pain is not severe and no hsqm-plv-[id number] medications used. This is a new symptom. It has not been evaluated by another provider. She does have a family history of breast cancer. PGM had breast cancer. It was diagnosed in her 70s.She was treated with surgery. Her sister has colon cancer. Dx at age 31. Genetic testing was completed and negative. Pt had colonoscopy this past year. 1 polyp was removed. She was advised to repeat colonoscopy in 3 years. Age of menarche: 12-13 yo Contraception used: nothing. Using PNV. She has a long history of irregular menses and facial hair .States she thinks she has polycystic ovarian syndrome . Both of her sisters have this issue . Menstrual interval can be 6-8 weeks. She has been trying to conceive for the past year . Use basal body temperature kits for awhile but results were inconsistent in stopped. This issue was discussed with her primary OBGYN in December at her annual exam. They discussed completing her colonoscopy 1st given her sister's colon cancer and if normal, then proceed with infertility workup. She is a new insurance now and plans to address conception plan now. Problem List: Patient Active Problem List Diagnosis ??? Breast lump on left side at 1 o'clock position ??? Leg pain ??? Polycystic ovaries (HRC) ??? Thyroid nodule (HRC) OB Hx: OB History Para Term AB Living 0 0 0 0 0 0 SAB TAB Ectopic Multiple Live Births 0 0 0 0 0 PMH: Past Medical History: Diagnosis Date ??? Irregular menstrual cycle ??? Irritable bowel syndrome ??? Thyroid nodule ([facility]) 02/23/2014 PSH: Past Surgical History: Procedure Laterality Date ??? WISDOM TEETH EXTRACTION Social Hx: Social History Socioeconomic History ??? Marital status: Single Spouse name: Not on file ??? Number of children: Not on file ??? Years of education: Not on file ??? Highest education level: Not on file Occupational History ??? Occupation: [employer] Employer: [employer] Comment: [employer] Social Needs ??? Financial resource strain: Not on file ??? Food insecurity Worry: Not on file Inability: Not on file ??? Transportation needs Medical: Not on file Non-medical: Not on file Tobacco Use ??? Smoking status: Never Smoker ??? Smokeless tobacco: Never Used Substance and Sexual Activity ??? Alcohol use: Yes Comment: 1-2/week ??? Drug use: No ??? Sexual activity: Yes Partners: Male control/protection: None Lifestyle ??? Physical activity Days per week: Not on file Minutes per session: Not on file ??? Stress: Not on file Relationships ??? Social connections Talks on phone: Not on file Gets together: Not on file Attends yazidism service: Not on file Active member of club or organization: Not on file Attends meetings of clubs or organizations: Not on file Relationship status: Not on file ??? Intimate partner violence Fear of current or ex partner: Not on file Emotionally abused: Not on file Physically abused: Not on file Forced sexual activity: Not on file Other Topics Concern ??? Bike Helmet No ??? City [place] Yes ??? Exercise Yes ??? Guns in home Yes ??? Seat Belt Yes ??? Special Diet No ??? 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 High Cholesterol Father ??? Cancer, Colon Sister 31 ??? Cancer Paternal Grandmother breast ??? Thyroid Disorder Negative Family History ??? Diabetes Negative Family History Medications: No current outpatient medications on file. No current facility-administered medications for this visit. Allergies: No Known Allergies ROS: Complete ROS is negative, except for that mentioned in the HPI. OBJECTIVE:Patient was offered a restaurant crew member for visit and declined. BP 127/82 (BP Location: Right Arm, BP Cuff Size: Regular) Pulse (!) 103 Temp 36.9 ??C (98.4 ??F) Wt 140 lb (63.5 kg) LMP 05/04/2019 (Approximate) No BMI 20.09 kg/m?? General appearance: moves easily about the room, alert, cooperative, no distress, appears stated age Lymph Nodes- Cervical, supraclavicular, and axillary nodes normal. Lungs - Breathing is unlabored Breast- Normal in size and symmetry bilateral. Normal in contour with no evidence of dimpling bilateral. Nipples are everted without rashes or discharge bilateral. No masses or tenderness palpated on right breast. On left breast, palpated 2 cm mass at 12:00, firm, nonmobile, nontender. ASSESSMENT: Left breast mass Irregular menses PLAN: Diagnostic bilateral mammogram for left breast mass at 12:00, 2 cm from nipple. This will be her 1stmammogram. Diagnostic ultrasound on her left breast. Patient informed that results and plan will be addressed at apt by the [facility] radiologist and team. Irregular menses. Advised patient to schedule an infertility consult. She has been trying for 1 yearto conceive with PCOS symptoms and AMA. Dictation disclaimer: Some notes are completed with voice-recognition dictation software. Typographical errors may result. Please contact me via [employer] staff message if you note any errors requiring clarification. N'S STUDIES LECTURER documented in this encounter Plan of Treatment Not on filedocumented as of this encounter Results (ABNORMAL) [facility] US Breast Lt (05/28/2019 3:07 PM WOMEN'S STUDIES LECTURER) Anatomical Region Laterality Modality Breast Left Ultrasound Specimen (Source) Anatomical Collection Method Collection Time Re ceived Time Location / / Volume Laterality 05/28/2019 2:58 PM WOMEN'S STUDIES LECTURER Impressions 05/28/2019 3:44 PM WOMEN'S STUDIES LECTURER HISTORY: Left breast mass 12:00 p.m., 2 cm from nipple; ; COMPARISON: None. ? FINDINGS: Bilateral CC and MLO C-Views w ith CAD and tomosynthesis. Left CC and ML spot magnification views. The breasts are extremely dense, which lowers the sensitivity of mammography. There is a coars e and round centrally lucent calcificati on at the 12:00 position/retroareolar region of the left breast. Partially obscured mass at 12:00 position of the left breast, best seen on the MLO view, likely c orrelating with the palpable abnormality . No suspicious mass in the right breast. No suspicious microcalcifications or architectural distortion. Left breast ultrasound at the 12:00 posi tion, 3 cm from the nipple was performed. Multilobular hypoechoic 2.2 x 1.5 x 2.0 cm mass, correlating with the palpable abnormality. This is indeterminate. Oval hypoechoic 1.4 x 0.9 x 1.1 cm mass in th e subareolar region of the left breast has less than 3 gentle lobulations. No left axillary lymph node enlargement. Findings were confirmed with real-time imaging. RECOMMENDATIONS: The results were discu ssed with the patient. The palpable mass in the left breast at the 12:00 position is indeterminate. Ultrasound-guided biopsy is recommended. The [facility] will attempt to schedule the recommended follow up with the patient. ?? IMPRESSION: ??ACR BI-RADS CATEGORY 4: ?? Suspicious. Procedure Note Dennis Chandler MD - 05/28/2019Format ting of this note might be different from the original. IMPRESSION HISTORY: Left breast mass 12:00 p.m., 2 cm from nipple; ; COMPARISON: None. FINDINGS: Bilateral CC and MLO C-Views w ith CAD and tomosynthesis. Left CC and ML spot magnification views. The breasts are extremely dense, which lowers the sensitivity of mammography. There is a coarse and round centrally lucent calcification at the 12 :00 position/retroareolar region of the left breast. Partially obscured mass at 12:00 position of the left breast, best seen on the MLO view, likely correlating with the palpable abnormality. No suspicious mass in the r ight breast. No suspicious microcalcifications or architectural distortion. Left breast ultrasound at the 12:00 posi tion, 3 cm from the nipple was performed. Multilobular hypoechoic 2.2 x 1.5 x 2.0 cm mass, correlating with the palpable abnormality. This is indeterminate. Oval hypoechoic 1.4 x 0.9 x 1.1 cm mass in the subareolar re gion of the left breast has less than 3 gentle lobulations. No left axillary lymph node enlargement. Findings were confirmed with real-time imaging. RECOMMENDATIONS: The results were discu ssed with the patient. The palpable mass in the left breast at the 12:00 position is indeterminate. Ultrasound-guided biopsy is recommended. The [facility] will attempt to schedule the recommended follow up with the patient. IMPRESSION: ACR BI-RADS CATEGORY 4: Susp icious. Madeleine Page DISTRICT RESOURCE OFFICER, ENVIRONMENTAL HEALTH TECHNOLOGIST RAD ERIC (ABNORMAL) YMM Mammogram Diag Bilat W 3D Brodie (05/28/2019 2:16 PM WOMEN'S STUDIES LECTURER) Anatomical Region Laterality Modality Breast Bilateral Mammography Specimen (Source) Anatomical Collection Method Collection Time Re ceived Time Location / / Volume Laterality 05/28/2019 2:15 PM WOMEN'S STUDIES LECTURER Impressions 05/28/2019 3:44 PM WOMEN'S STUDIES LECTURER HISTORY: Left breast mass 12:00 p.m., 2 cm from nipple; ; COMPARISON: None. ? FINDINGS: Bilateral CC and MLO C-Views w ith CAD and tomosynthesis. Left CC and ML spot magnification views. The breasts are extremely dense, which lowers the sensitivity of mammography. There is a coars e and round centrally lucent calcificati on at the 12:00 position/retroareolar region of the left breast. Partially obscured mass at 12:00 position of the left breast, best seen on the MLO view, likely c orrelating with the palpable abnormality . No suspicious mass in the right breast. No suspicious microcalcifications or architectural distortion. Left breast ultrasound at the 12:00 posi tion, 3 cm from the nipple was performed. Multilobular hypoechoic 2.2 x 1.5 x 2.0 cm mass, correlating with the palpable abnormality. This is indeterminate. Oval hypoechoic 1.4 x 0.9 x 1.1 cm mass in th e subareolar region of the left breast has less than 3 gentle lobulations. No left axillary lymph node enlargement. Findings were confirmed with real-time imaging. RECOMMENDATIONS: The results were discu ssed with the patient. The palpable mass in the left breast at the 12:00 position is indeterminate. Ultrasound-guided biopsy is recommended. The [facility] will attempt to schedule the recommended follow up with the patient. ?? IMPRESSION: ??ACR BI-RADS CATEGORY 4: ?? Suspicious. Procedure Note Dennis Chandler MD - 05/28/2019Format ting of this note might be different from the original. IMPRESSION HISTORY: Left breast mass 12:00 p.m., 2 cm from nipple; ; COMPARISON: None. FINDINGS: Bilateral CC and MLO C-Views w ith CAD and tomosynthesis. Left CC and ML spot magnification views. The breasts are extremely dense, which lowers the sensitivity of mammography. There is a coarse and round centrally lucent calcification at the 12 :00 position/retroareolar region of the left breast. Partially obscured mass at 12:00 position of the left breast, best seen on the MLO view, likely correlating with the palpable abnormality. No suspicious mass in the r ight breast. No suspicious microcalcifications or architectural distortion. Left breast ultrasound at the 12:00 posi tion, 3 cm from the nipple was performed. Multilobular hypoechoic 2.2 x 1.5 x 2.0 cm mass, correlating with the palpable abnormality. This is indeterminate. Oval hypoechoic 1.4 x 0.9 x 1.1 cm mass in the subareolar re gion of the left breast has less than 3 gentle lobulations. No left axillary lymph node enlargement. Findings were confirmed with real-time imaging. RECOMMENDATIONS: The results were discu ssed with the patient. The palpable mass in the left breast at the 12:00 position is indeterminate. Ultrasound-guided biopsy is recommended. The [facility] will attempt to schedule the recommended follow up with the patient. IMPRESSION: ACR BI-RADS CATEGORY 4: Susp icious. Madeleine Page DISTRICT RESOURCE OFFICER, ENVIRONMENTAL HEALTH TECHNOLOGIST RAD ERIC documented in this encounter Visit Diagnoses Diagnosis Left breast mass - Primary Lump or mass in breast Irregular menses Irregular menstrual cycle Left breast mass Lump or mass in breast Left breast mass Lump or mass in breast documented in this encounter Care Teams Wind Farm Engineer Relationship Specialty Start Date End Date Kristine Mendez MD PCP - General 01/01/14 [id number] [place] [place] [id number] documented as of this encounter
--- OUTSIDE RECORDS SUMMARY | 2021-12-06 21:46 | XMS_ITS | Encounter Summary ---
:1985 Author Organization [facility] Address [address] [place] [address] Care Team Providers Name Role Phone Unavailable Primary Care Provider Unavailable Reason for Visit Reason Onset Date Comments LAB RESULTS 07/23/2012 Encounter Details Date Type Department Care Team Description 07/23/2012 Telephone Urgent Care [facility] Kirsten Quiroz TABLE CUT OFF SAW OPERATOR RESULTS [address] [facility] [place] [address] [phone] [place], [place] [address] Social History Tobacco Use Types Packs/Day Years Used Date Smoking Tobacco: Never Alcohol Use Standard Drinks/Week Comments No 0 (1 standard drink = 0.6 oz pure alcoho l) Sex Assigned at Date Recorded Not on file documented as of this encounter Nursing Notes Kirsten Quiroz RN - 07/23/2012 6:00 PM CDT Pt called back received lab result and pt to stop bactrim ds and start macrobid and if not feeling better in 48 hours to follow up with pcp. Pt agreed Kirsten Quiroz RN 07/23/2012, 6:01 PM Kirsten Quiroz RN - 07/23/2012 5:41 PM CDT lmtcb for +uti was placed on bactrim ds which is resistant so pt to stop bactrim ds and start on macrobid per standing orders per dr. Ana Quiroz, JAKY 07/23/2012, 5:43 PM documented in this encounter Plan of Treatment Not on filedocumented as of this encounter Visit Diagnoses Not on filedocumented in this encounter
--- OUTSIDE RECORDS SUMMARY | 2021-12-06 21:46 | XMS_ITS | Encounter Summary ---
:1985 Author Organization [employer] Address [address] [place] [address] Care Team Providers Name Role Phone Kristine Mendez MD Primary Care Provider Reason for Visit Reason Comments RESULTS, TEST Encounter Details Date Type Department Care Team Description 01/28/[address] [facility] [address] Jim[address] Magaña cca, MD RESULTS, TEST Endocrinology [address] [place] [address] [place] [address] [phone] Social History Tobacco Use Types Packs/Day Years Used Date Smoking Tobacco: Never Alcohol Use Standard Drinks/Week Comments No 0 (1 standard drink = 0.6 oz pure alcoho l) Sex Assigned at Date Recorded Not on file documented as of this encounter Nursing Notes Lucia Cruz RN, CDE - 01/28/2014 3:08 PM CDT relayed results to pt. Sascha Weinberg RN - 01/28/2014 2:02 PM CDT called and left message to call back for this information Sascha Morgan, RN - 01/28/2014 1:59 PM CDT ----- Message from Leann Magaña MD sent at 01/28/2014 1:23 PM CDT ----- Kadi pt. Please let pt know that thyroid fna was benign. RTC in 6 months as planned. documented in this encounter Plan of Treatment Not on filedocumented as of this encounter Visit Diagnoses Not on filedocumented in this encounter Care Teams Venetian Blind Tape Cutter Relationship Specialty Start Date End Date Kristine Mendez MD PCP - General 01/01/14 [address] [place] [id number] documented as of this encounter
--- OUTSIDE RECORDS SUMMARY | 2021-12-06 21:46 | XMS_ITS | Encounter Summary ---
:1985 Author Organization [facility] Address [address] [place] [address] Care Team Providers Name Role Phone Kristine Mendez MD Primary Care Provider Reason for Visit Reason Comments PELVIC PAIN Encounter Details Date Type Department Care Team Description 02/23/2014 Office Visit [facility] Kristine Mendez, UTI (urinary tract infection) (Primary Dx); Medicine Pelvic pain in female [address] [address] [place] [address] [place] [phone] (Wo rk) Social History Tobacco Use Types Packs/Day Years Used Date Smoking Tobacco: Never Alcohol Use Standard Drinks/Week Comments No 0 (1 standard drink = 0.6 oz pure alcoho l) Sex Assigned at Date Recorded Not on file documented as of this encounter Last Filed Vital Signs Vital Sign Reading Time Taken Comments Blood Pressure 130/82 02/23/2014 2:33 PM CDT Pulse 76 02/23/2014 2:33 PM CDT Temperature 36.8 ??C (98.2 ??F) 02/23/2014 2:33 PM CDT Respiratory Rate - - Oxygen Saturation - - Inhaled Oxygen Concentration - - Weight 58.5 kg (129 lb) 02/23/2014 2:33 PM CDT Height - - Body Mass Index 18.64 01/02/2014 12:57 PM CDT documented in this encounter Progress Notes Kristine Mendze MD - 02/23/2014 3:24 PM CDT Quick Note: Pt on cipro BID to complete 7 day course for incomplete tx of sx on 3 day from online clinic - await Kristine Mendez MD - 02/23/2014 3:23 PM CDT Internal Medicine Office Visit Chief concern: Chief Complaint Patient presents with ??? Pelvic Pain finished Cipro yesterday- treated online for possible UTI HPI: pelvic pain ?? onset 3-4 days ago, she did online visit at for UTI and received Cipro, finished yesterday andno urinary sx now. pain never really resolved this time. this AM waking up she had the same burning and pain. ?? reports similar sx in [place] an in August that were treated with Cipro for UTI - she had no dysuria but has a pulling while urinating, no increased frequency, no urgency and no hematuria. ?? LMP started yesterday - in August was not maya menstrual. has not had this pain permenstrual, this is different. ?? onset with burning, hot, sharp pain, constant but varying in severity, in the suprapubic area, 7/10, kept her up for first couple of nights, better/down to 3/10 with Advil couple times per day. Improved some with cipro, but returned again this AM after finishing abx. Non radiating. nothing aggravates. ?? BM are every day, soft and formed, no straining or diarrhea. No N/V. appetite is decreased. ?? she is sexually active. No issues with recurrent UTI - had 1 a year ago - at that time had more typical sx. ?? No vaginal discharge or itching ?? No fever, chills ?? No back pain ?? she has had cramping in the past with periods, but no history of increased pain ?? she was dx with PCOS - back on OCP, otherwise every 6-8 weeks. HPI: Denies other concerns. Review of systems: ROS negative except as per noted in HPI Past medical history: Past Medical History Diagnosis Date ??? No known problems 09/15/2011 ??? Thyroid nodule (ACG) 02/23/2014 Medications: Current Outpatient Prescriptions on File Prior to Visit Medication Sig Dispense Refill ??? norethindrone-ethinyl estradiol (LOESTRIN) 1mg-20mcg per tablet Take 1 tablet by mouth daily (every 24 hours). Follow package directions 84 tablet 4 ??? spironolactone (ALDACTONE) 100 mg tablet Take 1 tablet by mouth daily (every 24 hours). (Patienttaking differently: Take 100 mg by mouth daily (every 24 hours). has not started yet) 90 tablet 4 No current facility-administered medications on file prior to visit. Adverse Drug Reactions: No Known Allergies Social and Family History: I personally reviewed social history with patient and pertinent family history 02/23/2014 History Social History ??? Marital Status: Spouse Name: N/A Number of Children: N/A ??? 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 Smoking status: Never Smoker ??? Smokeless tobacco: Not on file ??? Alcohol Use: No Comment: rare ??? Drug Use: No ??? Sexual Activity: Partners: Male Control/ Protection: Other Topics Concern ??? Exercise Yes ??? Seat Belt Yes ??? Special Diet No ??? 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 UTI (urinary tract infection) Yes ??? Pelvic pain in female ASSESSMENT/PLAN: See patient instructions below for further details. Sx of suprapubic pain most likely UTI related, as had complete resolution in August of sx with short course cipro and sx improved but returned again with 3 days course finished yesterday - will empirically treat for total 7 day cipro course, await culture, pt to call if sx do not improve or worsen. If recurrence again, recommended eval with swab GC, wet prep and UA. We also discussed ddx pelvic pain including infection, ovarian cyst rupture, endometriosis (has had normal US pelvis and CT abdomen in 06/2012) but has not had history of issues with period. Orders Placed This Encounter Procedures ??? Urine Culture ??? US Pelvic W/ Ev (Standard) ??? Urinalysis Routine, Micro/Culture if Pos ??? Urine Microscopic There are no Patient Instructions on file for this visit. Orders Placed This Encounter Medications ??? ciprofloxacin (CIPRO) 500 mg tablet Sig: Take 1 tablet by mouth 2 times daily for 4 days. Dispense: 8 tablet Refill: 0 The patient was discharged ambulatory and in stable condition and agreed with the above plan. Kristine Mendez MD 02/23/2014 documented in this encounter Miscellaneous Notes Miscellaneous - 06/08/2016 2:42 PM CSTNotes Recorded by Kristine Mendez MD on 02/23/2014 at 3:24 PMPt on cipro BID to complete 7 day course for incomplete tx of sx on 3 day from online clinic - [facility] HER Miscellaneous - 06/08/2016 2:42 PM CSTNotes Recorded by Kristine Mendez MD on 02/23/2014 at 3:24 PMPt on cipro BID to complete 7 day course for incomplete tx of sx on [address] [facility] documented in this encounter Plan of Treatment Not on filedocumented as of this encounter Procedures Procedure Name Priority Date/Time Associated Comments Diagnosis URINE MICROSCOPIC STAT 02/23/2014 2:51 PM Resu lts for this CDT procedure are i n the results section. URINALYSIS ROUTINE, STAT 02/23/2014 2:51 PM Pelvic pain in Results for this MICRO/CULTURE IF POS CDT female procedu re are in the results section. URINE CULTURE STAT 02/23/2014 2:51 PM Results for this CDT procedure are i n the results section. documented in this encounter Results Urine Culture (02/23/2014 2:51 PM CDT) [facility] Method Time Signature Source Urine HP CONVERSION Site HP CONVERSION Urine Culture No growth HP CONVERSION Specimen (Source) Anatomical Collection Method Collection Time Re ceived Time Location / / Volume Laterality Urine: 02/23/2014 2:51 PM CDT Kristine Mendez MD LAB_1 Performing Organization Address [facility] Code Phon e Number HP CONVERSION (ABNORMAL) URINE MICROSCOPIC (02/23/2014 2:51 PM CDT) athologist Signature Urine WBC 0-2 0 - 4 HP CONVERSION Urine RBC 3-4 (A) 0 - 2 HP CONVERSION Bacteria Urine Few (A) HP CONVERSION Comment: Urine culture has been ordered per reflex protocol. Epithelial Cells Few HP CONVERSION Specimen (Source) Anatomical Collection Method Collection Time Re ceived Time Location / / Volume Laterality Urine: 02/23/2014 2:51 PM CDT Narrative HP CONVERSION - 02/23/2014 3:19 PM CDT Performed at [facility], [address] [place] [address] Transcriptions 06/08/2016 2:42 PM CSTNotes Recorded by Kristine Mendez MD on 02/23/2014 at 3:24 PMPt on cipro BID to complete 7 day course for incomplete tx of sx on 3 day from online clinic - await Kristine Mendez MD LAB_1 Performing Organization Address [facility] Phon e Number HP CONVERSION (ABNORMAL) URINALYSIS ROUTINE, MICRO/CULTURE IF POS (02/23/2014 2:51 PM CDT) [facility] Method Time Signature Urine Type Urine:clean HP CONVERSION cat Turbidity Clear Clear HP CONVERSION U BILI Negative Negative HP CONVERSION Blood Urine Large (A) Negative HP CONVERSION Glucose, Negative Neg-30 HP CONVERSION Qualitative U mg/dL Ketones Negative Negative HP CONVERSION Leukocyte Negative Negative HP CONVERSION Esterase Urine Nitrite Urine Negative Negative HP CONVERSION pH Urine 5.0 5.0 - 8.0 HP CONVERSION Protein Urine Negative Neg - Trace HP CONVERSION mg/dL U Specific >=1.030 1.005 - HP CONVERSION [place] 1.030 Urobilinogen Negative Negative HP CONVERSION Urine Specimen (Source) Anatomical Collection Method Collection Time Re ceived Time Location / / Volume Laterality Urine: 02/23/2014 2:51 PM CDT Narrative HP CONVERSION - 02/23/2014 2:59 PM CDT Performed at [facility], [address] [facility], [place] [address] Transcriptions 06/08/2016 2:42 PM CSTNotes Recorded by Kristine Mendez MD on 02/23/2014 at 3:24 PMPt on cipro BID to complete 7 day course for incomplete tx of sx on 3 day from online clinic - await [facility] Kristine Mendez MD LAB_1 Performing Organization Address City/State/ZIP Code Phon e Number HP CONVERSION documented in this encounter Visit Diagnoses Diagnosis UTI (urinary tract infection) - Primary Urinary tract infection, site not specif ied Pelvic pain in female Unspecified symptom associated with fema le genital organs documented in this encounter Care Teams Research Technologist Relationship Specialty Start Date End Date Kristine Mendez MD PCP - General 01/01/14 [id number] [place] [address] documented as of this encounter
--- OUTSIDE RECORDS SUMMARY | 2021-12-06 21:46 | XMS_ITS | Encounter Summary ---
:1985 Author [facility] [place] Address [address] [place] [address] Care Team Providers Name Role Phone Kristine Mendez MD Primary Care Provider Encounter Details Date Type Department Care Team Description 01/31/2019 Notes/Orders [facility] [address] Carrasco MD Gastroenterology [address] [place] [address] [place] [address] [phone] Social History Tobacco Use Types Packs/Day Years [...] on filedocumented in this encounter Care Teams Audit Mgr Relationship Specialty Start Date End Date Kristine Mendez MD PCP - General 01/01/14 [address] [place] [address] documented as of this encounter
--- OUTSIDE RECORDS SUMMARY | 2021-12-06 21:46 | XMS_ITS | Clinical Summary ---
:1985 Author Organization [facility] Address [address] [place] [address] Care Team Providers Name Role Phone Kristine Mendez MD Primary Care Provider Source Comments You are receiving this document as you are listed as the primary care provider,follow-up provider, or the patient has been referred to you for consultation.This is in compliance with the Medicare and Medicaid EHR Incentive Program,which states Providers who transition their patient to another setting of careor provider of care or refers their patient to another provider of care shouldprovide summarycare record for each transition of care or referral. [facility] Allergies No known active allergies Medications No known medications Active Problems Problem Noted Date Fibroadenoma of left breast 05/31/2019 Overview: breast bx Irregular menses 05/23/2019 Left breast mass 05/23/2019 Thyroid nodule 02/23/2014 Overview: Large (2.7x1.9 cm) on US 12/2013, benign FNA, euthyroid. Follows with Endo. Polycystic ovaries 01/27/2014 Leg pain 10/09/2011 Last Assessment & Plan: Formatting of th is note might be different from the original. Patient presents to the clinic today com plaining of symptoms of discomfort in her legs. One month ago she was started on oral contraceptive pills this is something that worries her. She feels like she h ad worsening or bleeding. Symptoms seeme d to be a bit better after a few weeks of being on the pill. She has not had any redness or swelling. She has no family or personal history of blood clots. Pain d oes not feel deep in the calves. She has not had chest pain or shortness of breath. Blood pressure is stable. Breast lump on left side at 1 o'clock position 012 Last Assessment & Plan: Formatting of is note might be different from the original. On examination today patient had a breas t lump that was noted at the 1:00 position of the left breast. It was about 1 cm in diameter. It was smooth and movable. Suspect that this is a cyst in patient wi ll be scheduled for ultrasound. There is no family history of breast cancer. She is not on hormones. She has never had any pregnancies. Resolved Problems Problem Noted Date Resolved Date Papanicolaou smear of cervix with atypical squamous cells of 03/18/2014 01/22/2019 undetermined significance (ASC-US) Overview: Repeat co-testing in 3 years. ; ASCUS with negative HPV UTI (urinary tract infection) 06/26/2012 10/06/2013 Last Assessment & Plan: Formatting of is note might be different from the original. 18-year-old female patient presents with four-day history lower abdominal pain which radiates to the sides superiorly for the past 4 days. This has been associated with nausea without vomiting. She is s tooling normally, having a bowel movemen t this morning. Which she describes as slightly loose but not diarrhea. Her last menstrual period ended yesterday and she describes it as normal with a duration o f 6 days which is normal for her. She is in a monogamous relationship with her . This is the only sexual partner she has ever had. She has not had Pap smear screening at this point as she has the sexually active until recently. She has no history of gallbladder disease, no diabetes since and is a nondrinker and uses no illicit chemicals. The only medication she takes is control. She has had no fevers and denies flank pain. No known problems 09/15/2011 03/18/2014 Varicella 01/14/2009 09/15/2011 Overview: Varicella Zoster Other acne 07/28/2004 02/14/2005 Overview: LW Onset: ; Acne NOS Immunizations Name Administration Dates Next Due DT Ped 01/05/1989 DTP 02/20/1985 HepA Adult (19+ yrs) 12/11/2002, 11/07/2000 HepB Adult (Engerix-B, 20+ yrs, 3 dose series) 09/15/2011, 0 01/14/2009 Hib (ActHIB) 07/29/1985 IPV (Polio) 01/14/2009 MMR 01/17/1996, 02/20/1985 OPV, Trivalent (Orimune or tOPV) 01/05/1989, 02/20/1985 TDAP (BOOSTRIX) 01/14/2009 Td 01/17/1996 Typhoid (Vivotif, Oral) 01/14/2009 Family History Medical History Relation Name Comments High Cholesterol Father Cancer Paternal Grandmother breast Cancer, Breast Paternal Grandmother Cancer, Colon Sister 1 Cancer, Ovary Negative Family History Diabetes Negative Family History Thyroid Disorder Negative Family History Relation Name Status Comments Father Alive Mother Alive Brother Alive Maternal Grandfather Alive Maternal Grandmother Alive Paternal Grandfather Paternal Grandmother Sister 1 Alive Sister 2 Alive Sister 3 Alive Social History Tobacco Use Types Packs/Day Years [...] Assigned at Date Recorded Not on file Last Filed Vital Signs Vital Sign Reading Time Taken Comments Blood Pressure 127/82 05/23/2019 10:30 AM [employer] Pulse 103 05/23/2019 10:30 AM [employer] Temperature 36.9 ??C (98.4 ??F) 05/23/2019 10:30 AM [employer] Respiratory Rate 16 02/10/2019 2:45 PM CDT Oxygen Saturation 100% 02/10/2019 2:45 PM CDT Inhaled Oxygen Concentration - - Weight 63.5 kg (140 lb) 05/23/2019 10:30 AM [employer] Height 177.8 cm (5' 10) 02/10/2019 1:19 PM CDT Body Mass Index 20.09 02/10/2019 1:19 PM CDT Plan of Treatment Health Maintenance Due Date Last Done Comments Hep C Screening (Preventive 1985 Services) COVID-19 Vaccine (#1) 1985 HepB (3) 01/16/2012 09/15/2011, 01/14/2009 DTaP/Tdap/Td (5 - Tdap) 01/14/2019 01/14/2009, 01/14/2009, 01/17/1996, Additional history exists Adult Preventive Visit 01/10/2021 01/10/2019 Influenza (#1) 2021 Colonoscopy 02/10/2022 02/10/2019 Pap 01/11/2024 01/10/2019, 03/02/2014 Zoster/Shingles (1 of 2) 2033 Hib Completed 07/29/1985 HepA Completed 12/11/2002, 11/07/2000 IPV (Polio) Aged Out 01/14/2009, 01/05/1989, No longe r eligible 02/20/1985 based on patient 's age to complete this topic HIV Screening (Preventive Completed 01/01/2014 Services) HPV Vaccine Aged Out No longer eligib le based on patient 's age to complete this topic MCV4 Aged Out No longer eligib le based on patient 's age to complete this topic Pneumococcal Aged Out No longer eligib le based on patient 's age to complete this topic Insurance Payer Benefit Plan / Subscriber ID Effective Dates Phone Addre ss Type Group CIGNA CIGNA [id number] 2013-Present [phone] [address] [place] [address] [id number] [facility] (Home) [address] [phone] Edu[employer] BEYER (Work) [id number] [place], Personal/Family Self 1985 [id number] [facility] (Home) [address] [phone] Eduar TURNER (Work) [id number] Guido, Personal/Family Self 1985 [id number] [facility] (Home) [place] [address] Care Teams Hose Wrapper Relationship Specialty Start Date End Date Kristine Mendez MD PCP - General 01/01/14 [address] [place] [address]
--- OUTSIDE RECORDS SUMMARY | 2021-12-06 21:46 | XMS_ITS | Encounter Summary ---
:1985 Author Organization [employer] Address [address] [place] [address] Care Team Providers Name Role Phone Kristine Mendez MD Primary Care Provider Reason for Visit Reason Comments MASS Encounter Details Date Type Department Care Team Description 01/01/2014 Office Visit [place] [facility] Kristine Mendez, Thy elise whelan (Primary Dx); Medicine [facility] [address] [facility] [address] [place] [address] [place] [phone] [id number] Social History Tobacco Use Types Packs/Day Years Used Date Smoking Tobacco: Never Alcohol Use Standard Drinks/Week Comments No 0 (1 standard drink = 0.6 oz pure alcoho l) Sex Assigned at Date Recorded Not on file documented as of this encounter Last Filed Vital Signs Vital Sign Reading Time Taken Comments Blood Pressure 118/80 01/01/2014 10:07 AM CDT Pulse 76 01/01/2014 10:07 AM CDT Temperature 36.8 ??C (98.2 ??F) 01/01/2014 10:07 AM CDT Respiratory Rate - - Oxygen Saturation - - Inhaled Oxygen Concentration - - Weight 59 kg (130 lb) 01/01/2014 10:07 AM CDT Height 177.3 cm (5' 9.8) 01/01/2014 10:07 AM CDT Body Mass Index 18.76 01/01/2014 10:07 AM CDT documented in this encounter Patient Instructions Patient InstructionsKristine Mendez MD - 01/01/2014 10:38 AM CDT Images from the original note were not included. Please call the Endocrinology dept. at [phone] to schedule your appointment. Labs today Thyroid Nodules: After Your Visit Your Care Instructions Thyroid nodules are growths or lumps in the thyroid gland. Your thyroid is in the front of your neck. It controls how your body uses energy. You may have tests to see if the nodule is caused by cancer. Most nodules aren't cancer and don't cause problems. Many don't even need treatment. If you do have cancer, it can usually be cured. Treatment will probably include surgery. You may also get radioactive iodine treatment. If your thyroid can't make thyroid hormone after treatment, you can take a pill every day to replace the hormone. Follow-up care is a alvarez part of your treatment and safety. Be sure to make and go to all appointments, and call your doctor if you are having problems. It's also a good idea to know your test results and keep a list of the medicines you take. How can you care for yourself at home? ?? Be safe with medicines. If you take thyroid hormone medicine: ?? Take it exactly as prescribed. Call your doctor if you think you are having a problem with your medicine. If you take the right amount and don't skip doses, you probably won't have side effects. ?? Do not take it with calcium, vitamins, or iron. ?? Try not to miss a dose. ?? Do not take extra doses. This will not help you get better any faster. It may also cause side effects. ?? Tell your doctor about any medicines you take. This includes gvon-zsb-ylmwiyk medicines. ?? Wear a medical alert bracelet or necklace that says you take thyroid hormones. You can buy these at most drugstores. When should you call for help? Call 911 anytime you think you may need emergency care. For example, call if: ?? You lose consciousness. Call your doctor now or seek immediate medical care if: ?? You have shortness of breath. Watch closely for changes in your health, and be sure to contact your doctor if: ?? You have pain in your neck, jaw, or ear. ?? You have problems swallowing. ?? You have a tickle in your throat. ?? You feel weak and tired. ?? You have nervousness, a fast heartbeat, hand tremors, problems sleeping, increased sweating, and weight loss. ?? You do not feel better even though you are taking your medicine. Where can you learn more? Go to www.Minitrade.net/patiented. Enter E754 in the search box to learn more about Thyroid Nodules: After Your Visit. Last Revised: October 10, 2012 ?? [id number] [employer]. Care instructions adapted under license by your healthcare professional. If you have questions about a medical condition or this instruction, always ask your healthcare professional. [employer] disclaims any warranty or liability for your use of this information. documented in this encounter Progress Notes Kristine Mendez MD - 01/01/2014 12:48 PM CDT Images from the original note were not included. Internal Medicine Office Visit Chief concern: Chief Complaint Patient presents with ??? Mass neck HPI: First noticed by mother, did initially have some mild fatigue for 3 days but resolved. ?? lump in right anterior neck for 3 weeks, no pain, decreased energy and nausea - mom noticed this lump right side of neck and lasted for 3 days ?? No recent viral illness, no sore throat, no cough ?? No New cold intolerance - has been cold end for life ?? No constipation ?? + fatigue for the first 3 days, now feels normal ?? No skin or hair changes - no hair loss ?? No mood changes ?? No family history of thyroid disease No pain, troubles swallowing No weight changes No night sweats HPI: Denies other concerns. Review of systems: Complete ROS negative except as per noted in HPI Past medical history: Past Medical History Diagnosis Date ??? No known problems 09/15/2011 Medications: Current Outpatient Prescriptions on File Prior to Visit Medication Sig Dispense Refill ??? [DISCONTINUED] norethindrone-ethinyl estradiol (LOESTRIN) 1mg-20mcg per tablet Take 1 tablet by mouth daily (every 24 hours). Follow package directions 84 tablet 1 ??? [DISCONTINUED] norethindrone-ethinyl estradiol (MICROGESTIN FE 05/19, ,) 1- 20 mg-mcg per tabletTake 1 tablet by mouth daily (every 24 hours). 28 tablet 0 ??? [DISCONTINUED] ondansetron (ZOFRAN) 4 mg tablet Take 1 tablet by mouth every 8 hours as needed for Nausea and Vomiting. 30 tablet 0 No current facility-administered medications on file prior to visit. Adverse Drug Reactions: No Known Allergies Social and Family History: I personally reviewed social history with patient and pertinent family history 01/01/2014 History Social History ??? Marital Status: Spouse Name: N/A Number of Children: N/A ??? 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 Smoking status: Never Smoker ??? Smokeless tobacco: Not on file ??? Alcohol Use: No Comment: rare ??? Drug Use: No ??? Sexual Activity: Partners: Male Control/ Protection: Other Topics Concern ??? Exercise Yes ??? Seat Belt Yes ??? Special Diet No ??? 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 thyroid: left normal, right with non tender large nodule/mass measuring 2.5x1.[address]: no cervical, supraclavicular, axilla, popliteal, epitrochlear LA psych: normal ASSESSMENT: Encounter Diagnoses Name Primary? Thyroid mass Yes ??? Lymphadenopathy ASSESSMENT/PLAN: See patient instructions below for further details. Discussed thyroid disease etiology, nodules very common - however with rapid onset in past 3 weeks and further enlargement since noted I did want to expedite her US today and Endo appt to have them decide appropriate timing of biopsy for diagnosis to r/o CA management. Check TSH, FT4, TPO ignacia today. She is symptomatically euthyroid, enlarged cold nodule raises concern. Info from [facility] given on thyroid nodules. Orders Placed This Encounter Procedures ??? US Thyroid (Standard) ??? Thyroid Stimulating Hormone ??? Free T4 ??? Complete Blood Count W/Diff ??? Thyroid Peroxidase (Tpo) Antibody ??? Mononucleosis Screen ??? HIV Antibody ??? ENDOCRINOLOGY CONSULT ADULT (AMB) Patient Instructions Please call the Endocrinology dept. at [phone] to schedule your appointment. Labs today Thyroid Nodules: After Your Visit Your Care Instructions Thyroid nodules are growths or lumps in the thyroid gland. Your thyroid is in the front of your neck. It controls how your body uses energy. You may have tests to see if the nodule is caused by cancer. Most nodules aren't cancer and don't cause problems. Many don't even need treatment. If you do have cancer, it can usually be cured. Treatment will probably include surgery. You may also get radioactive iodine treatment. If your thyroid can't make thyroid hormone after treatment, you can take a pill every day to replace the hormone. Follow-up care is a alvarez part of your treatment and safety. Be sure to make and go to all appointments, and call your doctor if you are having problems. It's also a good idea to know your test results and keep a list of the medicines you take. How can you care for yourself at home? ?? Be safe with medicines. If you take thyroid hormone medicine: ?? Take it exactly as prescribed. Call your doctor if you think you are having a problem with your medicine. If you take the right amount and don't skip doses, you probably won't have side effects. ?? Do not take it with calcium, vitamins, or iron. ?? Try not to miss a dose. ?? Do not take extra doses. This will not help you get better any faster. It may also cause side effects. ?? Tell your doctor about any medicines you take. This includes afdi-czp-qqauxpp medicines. ?? Wear a medical alert bracelet or necklace that says you take thyroid hormones. You can buy these at most drugstores. When should you call for help? Call 911 anytime you think you may need emergency care. For example, call if: ?? You lose consciousness. Call your doctor now or seek immediate medical care if: ?? You have shortness of breath. Watch closely for changes in your health, and be sure to contact your doctor if: ?? You have pain in your neck, jaw, or ear. ?? You have problems swallowing. ?? You have a tickle in your throat. ?? You feel weak and tired. ?? You have nervousness, a fast heartbeat, hand tremors, problems sleeping, increased sweating, and weight loss. ?? You do not feel better even though you are taking your medicine. Where can you learn more? Go to www.Minitrade.net/patiented. Enter E754 in the search box to learn more about Thyroid Nodules: After Your Visit. Last Revised: October 10, 2012 ?? [id number] [employer]. Care instructions adapted under license by your healthcare professional. If you have questions about a medical condition or this instruction, always ask your healthcare professional. [employer] disclaims any warranty or liability for your use of this information. No orders of the defined types were placed in this encounter. The patient was discharged ambulatory and in stable condition and agreed with the above plan. Kristine Mendez MD 01/01/2014 documented in this encounter Plan of Treatment Not on filedocumented as of this encounter Visit Diagnoses Diagnosis Thyroid mass (HRC) - Primary Unspecified disorder of thyroid Lymphadenopathy Enlargement of lymph nodes documented in this encounter Care Teams Jig Fitter Relationship Specialty Start Date End Date Kristine Mendez MD PCP - General 01/01/14 [id number] [place] [id number] documented as of this encounter
--- OUTSIDE RECORDS SUMMARY | 2021-12-06 21:46 | XMS_ITS | Encounter Summary ---
:1985 Author Organization [facility] Address [address] [place] [address] Care Team Providers Name Role Phone Kristine Mendez MD Primary Care Provider Encounter Details Date Type Department Care Team Description 03/02/2014 Lab Visit [facility] Pelvic pain in female [address] [place] [id number] Social History Tobacco Use Types Packs/Day Years Used Date Smoking Tobacco: Never Alcohol Use Standard Drinks/Week Comments No 0 (1 standard drink = 0.6 oz pure alcoho l) Sex Assigned at Date Recorded Not on file documented as of this encounter Plan of Treatment Not on filedocumented as of this encounter Procedures Procedure Name Priority Date/Time Associated Comments Diagnosis URINE CULTURE Routine 03/02/2014 5:00 PM Results for this DIRECTOR OF HOSPITALITY procedure are i n the results section. URINE MICROSCOPIC Routine 03/02/2014 4:34 PM Resu lts for this DIRECTOR OF HOSPITALITY procedure are i n the results section. URINALYSIS ROUTINE, Routine 03/02/2014 4:34 PM Pelvic pain in Results for this MICRO/CULTURE IF POS DIRECTOR OF HOSPITALITY female procedu re are in the results section. documented in this encounter Results Urine Culture (03/02/2014 5:00 PM DIRECTOR OF HOSPITALITY) [facility] Method Time Signature Source Urine HP CONVERSION Site HP CONVERSION Urine Culture No growth HP CONVERSION Specimen (Source) Anatomical Collection Method Collection Time Re ceived Time Location / / Volume Laterality Urine: 03/02/2014 5:00 PM DIRECTOR OF HOSPITALITY Apolonia Cm MD LAB_1 Performing Organization Address [facility] Phon e Number HP CONVERSION (ABNORMAL) URINE MICROSCOPIC (03/02/2014 4:34 PM DIRECTOR OF HOSPITALITY) [facility] Method Time Signature Urine WBC 0-2 0 - 4 HP CONVERSION Urine RBC 5-9 (A) 0 - 2 HP CONVERSION Bacteria Urine Occasional (A) HP CONVERS ION Epithelial Few HP CONVERSION Cells Specimen (Source) Anatomical Collection Method Collection Time Re ceived Time Location / / Volume Laterality Urine: 03/02/2014 4:34 PM DIRECTOR OF HOSPITALITY Narrative HP CONVERSION - 03/02/2014 4:59 PM DIRECTOR OF HOSPITALITY Performed at [facility], [address] [place] [address] Apolonia Cm MD LAB_1 Performing Organization Address [facility] Phon e Number HP CONVERSION (ABNORMAL) URINALYSIS ROUTINE, MICRO/CULTURE IF POS (03/02/2014 4:34 PM DIRECTOR OF HOSPITALITY) [facility] Method Time Signature Urine Type Urine:clean HP CONVERSION cat Turbidity Clear Clear HP CONVERSION U BILI Negative Negative HP CONVERSION Blood Urine Moderate Negative HP CONVERSION (A) Glucose, Negative Neg-30 HP CONVERSION Qualitative U mg/dL Ketones Negative Negative HP CONVERSION Leukocyte Negative Negative HP CONVERSION Esterase Urine Nitrite Urine Negative Negative HP CONVERSION pH Urine 7.5 5.0 - 8.0 HP CONVERSION Protein Urine Trace Neg - Trace HP CONVERSION mg/dL U Specific 1.020 1.005 - HP CONVERSION [place] 1.030 Urobilinogen Negative Negative HP CONVERSION Urine Specimen (Source) Anatomical Collection Method Collection Time Re ceived Time Location / / Volume Laterality Urine: 03/02/2014 4:34 PM DIRECTOR OF HOSPITALITY Narrative HP CONVERSION - 03/02/2014 4:41 PM DIRECTOR OF HOSPITALITY Performed at [facility], [address] [place] [address] Apolonia Cm MD LAB_1 Performing Organization Address [facility] Phon e Number HP CONVERSION documented in this encounter Visit Diagnoses Diagnosis Pelvic pain in female Unspecified symptom associated with fema le genital organs documented in this encounter Care Teams Film Maker Relationship Specialty Start Date End Date Kristine Mendez MD PCP - General 01/01/14 [address] [place] [address] documented as of this encounter
--- OUTSIDE RECORDS SUMMARY | 2021-12-06 21:46 | XMS_ITS | Encounter Summary ---
:1985 Author Organization [employer] Address [address] [place] [address] Care Team Providers Name Role Phone Kristine Mendez MD Primary Care Provider Reason for Visit Reason Comments Pharyngitis x 1 week Encounter Details Date Type Department Care Team Description 04/17/2017 Office Visit [facility] e Radha Alejandra, Acute pharyngitis, unspecifi ed etiology (Primary Dx); [address] PA-C Sore throat [place] [phone] [facility] [phone] [place], [place] [id number] Social History Tobacco Use Types Packs/Day Years [...] Sign Reading Time Taken Comments Blood Pressure 145/83 04/17/2017 8:54 AM CUT IN STATION OPERATOR Pulse 83 04/17/2017 8:54 AM CUT IN STATION OPERATOR Temperature 36.7 ??C (98 ??F) 04/17/2017 8:54 AM CUT IN STATION OPERATOR Respiratory Rate - - Oxygen Saturation 100% 04/17/2017 8:54 AM CUT IN STATION OPERATOR Inhaled Oxygen Concentration - - Weight 63.7 kg (140 lb 8 oz) 04/17/2017 8:54 AM CUT IN STATION OPERATOR Height - - Body Mass Index 20.3 01/02/2014 12:57 PM CDT documented in this encounter Patient Instructions Patient InstructionsRadha Alejandra PA-C - 04/17/2017 8:40 AM CST Images from the original note were not included. Sore Throat: Care Instructions Your Care Instructions Infection by bacteria or a virus causes most sore throats. Cigarette smoke, dry air, air pollution, allergies, and yelling can also cause a sore throat. Sore throats can be painful and annoying. Fortunately, most sore throats go away on their own. If you have a bacterial infection, your doctor may prescribe antibiotics. Follow-up care is a alvarez part of your treatment and safety. Be sure to make and go to all appointments, and call your doctor if you are having problems. It's also a good idea to know your test results and keep a list of the medicines you take. How can you care for yourself at home? ?? If your doctor prescribed antibiotics, take them as directed. Do not stop taking them just because you feel better. You need to take the full course of antibiotics. ?? Gargle with warm salt water once an hour to help reduce swelling and relieve discomfort. Use 1 teaspoon of salt mixed in 1 cup of warm water. ?? Take an jblw-fzt-quaajpr pain medicine, such as acetaminophen (Tylenol), ibuprofen (Advil, Motrin), or naproxen (Aleve). Read and follow all instructions on the label. ?? Be careful when taking ogui-nqx-oahfdju cold or flu medicines and Tylenol at the same time. Many of these medicines have acetaminophen, which is Tylenol. Read the labels to make sure that you are not taking more than the recommended dose. Too much acetaminophen (Tylenol) can be harmful. ?? Drink plenty of fluids. Fluids may help soothe an irritated throat. Hot fluids, such as tea or soup, may help decrease throat pain. ?? Use qytb-ard-yvgsiap throat lozenges to soothe pain. Regular cough drops or hard candy may also help. These should not be given to young children because of the risk of choking. ?? Do not smoke or allow others to smoke around you. If you need help quitting, talk to your doctor about stop-smoking programs and medicines. These can increase your chances of quitting for good. ?? Use a vaporizer or humidifier to add moisture to your bedroom. Follow the directions for cleaningthe machine. When should you call for help? Call your doctor now or seek immediate medical care if: ?? You have new or worse trouble swallowing. ?? Your sore throat gets much worse on one side. Watch closely for changes in your health, and be sure to contact your doctor if you do not get better as expected. Where can you learn more? 1. Go to WaveCheck/Avolent or Retty/Gertrude. 2. Enter U420 in the search box. Current as of: November 26, 2015 Content Version: 11.3 ?? 5622-8908 [email or web address]. Thank you so much for choosing [facility]. It was a pleasure taking care of you today! Important phone numbers: Daytime Clinic information: [phone] Appointment center: [phone] Evenings & Weekends CareLine: [phone] Urgent Care Hotline: [phone] [facility], Emergency Department [address] [place] [address] IN STATION OPERATOR documented in this encounter Progress Notes Radha Alejandra PA-C - 04/17/2017 8:40 AM CST Historical: Chief Complaint Patient presents with ??? Pharyngitis x 1 week Cold/Cough/Sinus/Sore throat How long have you had these symptoms? 1week(s) Do you have any nasal congestion? YES Do you have a runny nose? No Do you have any dental pain? YES Do you have any facial pain? No Are you having headaches? YES Do you have ear pain? YES - R>L Are you sneezing? No Do you have any eye itching or irritation? No Do you have a sore throat? YES - more so on the right Are you wheezing? No Do you have a cough? YES Do you have any new chest pain or shortness of breath? No Do you have a fever? YES pt states she had fever for 3 days Have you been vomiting or feeling nauseated? YES Are there any treatments you have tried? YES tylenol/ibuprofen - helps a little bit, gargling with salt water Pt was seen at [facility] on 04/12 and had a negative rapid strep and culture. She says that, on the , the tonsils became more swollen and she had pus pockets in them, right more than left. Shedenies any known sick contacts. Pt has had strep a few times as an adult, but nothing with any significant frequency. I have personally reviewed the patient's allergies, medications and past medical history in detail and updated the patient record as necessary. Observed: BP (!) 145/83 Pulse 83 Temp 98 ??F (36.7 ??C) (Tympanic) Wt 140 lb 8 oz (63.7 kg) LMP 03/25/2017 (Exact Date) SpO2 100% BMI 20.3 kg/m2 Physical Exam: General Appearance: alert, well appearing and in no apparent distress HEENT: oropharynx clear, TMs normal, no sinus tenderness to percussion and cryptic tonsils without erythema, 1 area of white exudate on the superior R tonsil Neck: moderate anterior cervical lymphadenopathy, no posterior cervical adenopathy Heart: regular rate and rhythm and no murmurs, gallops or rubs Lungs: clear to ausculation and no wheezes, rales or rhonchi Grp A Rapid Screen (no units) Date Value 04/17/2017 Negative Assessment/Plan: Acute pharyngitis, unspecified etiology - compounded MAGIC MOUTH WASH (MAGICMOUTHWASH) suspension; Take 5 mL by mouth every 2 hours as needed. Swish, gargle and spit out for relief of pain from mouth sores/soreness Sore throat - Strep Grp A, Rapid Screen Perform a culture if negative screen? No Reassured pt that this is viral. Discussed the possibility of mono although unlikely due to lack of posterior cervical adenopathy. Continue treating symptomatically. Did prescribe magic mouth wash for gargling and she should continue warm salt water as well. Please see orders and patient instructions Radha Alejandra PA-C IN STATION OPERATOR documented in this encounter Plan of Treatment Not on filedocumented as of this encounter Procedures Procedure Name Priority Date/Time Associated Diagnosis Comme nts STREP GRP A, RAPID Waiting 04/17/2017 8:56 AM Sore throat Res ults for this SCREEN CUT IN STATION OPERATOR procedure are i n the results section. documented in this encounter Results Strep Grp A, Rapid Screen Perform a culture if negative screen? No (04/17/2017 8:56 AM CUT IN STATION OPERATOR) [facility] gist Method Time Signature Grp A Rapid Negative NEG [facility] Specimen Anatomical Collection Method Collection Time Receive d Time (Source) Location / / Volume Laterality 04/17/2017 8:56 AM 7 9:03 CUT IN STATION OPERATOR AM CUT IN STATION OPERATOR Narrative [facility] - 04/17/2017 9:[address] Performed at [facility], [address], [place] [address] Radha Alejandra PA-C LAB_1 Performing Organization Address City/State/ZIP Code Phon e Number [facility] [phone] documented in this encounter Visit Diagnoses Diagnosis Acute pharyngitis, unspecified etiology - Primary Sore throat Acute pharyngitis documented in this encounter Care Teams Reimbursement Analyst Relationship Specialty Start Date End Date Kristine Mendez MD PCP - General 01/01/14 [address] [place] [place] [id number] documented as of this encounter
--- OUTSIDE RECORDS SUMMARY | 2021-12-06 21:46 | XMS_ITS | Encounter Summary ---
:1985 Author Organization [facility] Address [address] [place] [address] Care Team Providers Name Role Phone Kristine Mendez MD Primary Care Provider Encounter Details Date Type Department Care Team Description 03/03/2014 Notes/Orders Amy Internal Apolonia Cm, Radha pa in in female Medicine MD (Primary Dx) [address] [place] [address] [place] [address] [phone] Social History Tobacco Use Types Packs/Day Years Used Date Smoking Tobacco: Never Alcohol Use Standard Drinks/Week Comments No 0 (1 standard drink = 0.6 oz pure alcoho l) Sex Assigned at Date Recorded Not on file documented as of this encounter Plan of Treatment Not on filedocumented as of this encounter Visit Diagnoses Diagnosis Pelvic pain in female - Primary Unspecified symptom associated with fema le genital organs documented in this encounter Care Teams Cake Icer Relationship Specialty Start Date End Date Kristine Mendez MD PCP - General 01/01/14 [address] [address] [place] [address] documented as of this encounter
--- OUTSIDE RECORDS SUMMARY | 2021-12-06 21:46 | XMS_ITS | Encounter Summary ---
:1985 Author Organization [employer] Address [address] [place] [address] Care Team Providers Name Role Phone Kristine Mendez MD Primary Care Provider Encounter Details Date Type Department Care Team Description 01/01/2014 [facility] [place] [facility] Thyroid mass [address] [place] [address] Social History Tobacco Use Types Packs/Day Years Used Date Smoking Tobacco: Never Alcohol Use Standard Drinks/Week Comments No 0 (1 standard drink = 0.6 oz pure alcoho l) Sex Assigned at Date Recorded Not on file documented as of this encounter Plan of Treatment Not on filedocumented as of this encounter Procedures Procedure Name Priority Date/Time Associated Comments Diagnosis US THYROID Discharge Decision 01/01/2014 11:51 Thyroid mass Resul ts for this AM CDT procedure are i n the results section. documented in this encounter Results US Thyroid (01/01/2014 11:51 AM CDT) Anatomical Region Laterality Modality Neck, Head Other Specimen (Source) Anatomical Location Collection Method / Collectio n Time Received Time / Laterality Volume Impressions 01/01/2014 12:11 PM CDT IMPRESSION: 1. Single large 2.7 x 1.9 cm mixed echog enic nodule at the mid right lobe. No other nodule seen. 2. It is nonspecific, but considering th e size recommend fine needle aspiration to confirm the nature. Narrative 01/01/2014 12:11 PM CDT COMPARISON: ??None. FINDINGS: RIGHT LOBE: ??Measures 5.6 x 2.1 x 2.3 c m. Contains 2.7 x 2.2 x 1.9 cm mixed echogenic nodule at the mid pole. No other nodule. LEFT LOBE: Measures 5.7 x 1.5 x 1.1 cm. ??No discrete nodules. ?? ISTHMUS: Measures 0.3 cm. Procedure Note Remi Rose MD - 10/16/2015 COMPARISON: None. FINDINGS: RIGHT LOBE: Measures 5.6 x 2.1 x 2.3 cm. Contains 2.7 x 2.2 x 1.9 cm mixed echogenic nodule at the mid pole. No other nodule. LEFT LOBE: Measures 5.7 x 1.5 x 1.1 cm. No discrete nodules. ISTHMUS: Measures 0.3 cm. IMPRESSION IMPRESSION: 1. Single large 2.7 x 1.9 cm mixed echog enic nodule at the mid right lobe. No other nodule seen. 2. It is nonspecific, but considering th e size recommend fine needle aspiration to confirm the nature. Kristine Mendez MD [facility] US documented in this encounter Visit Diagnoses Diagnosis Thyroid mass (HRC) Unspecified disorder of thyroid documented in this encounter Care Teams Financial Sales Manager Relationship Specialty Start Date End Date Kristine Mendez MD PCP - General 01/01/14 [address] [place] [address] documented as of this encounter
--- OUTSIDE RECORDS SUMMARY | 2021-12-06 21:46 | XMS_ITS | Encounter Summary ---
:1985 Author Organization [employer] Address [address] [place] [address] Care Team Providers Name Role Phone Kristine Mendez MD Primary Care Provider Reason for Visit Reason Comments Follow-up Encounter Details Date Type Department Care Team Description 03/02/2014 Office Visit Amy Internal Apolonia Cm, Pelvic pa in in female (Primary Dx); Medicine Screening for malignant neoplasm of the cervix [address] [place] [address] [place] [address] [phone] Social History Tobacco Use Types Packs/Day Years Used Date Smoking Tobacco: Never Alcohol Use Standard Drinks/Week Comments No 0 (1 standard drink = 0.6 oz pure alcoho l) Sex Assigned at Date Recorded Not on file documented as of this encounter Last Filed Vital Signs Vital Sign Reading Time Taken Comments Blood Pressure 124/80 03/02/2014 3:55 PM ARCHITECTURAL DRAFTER Pulse 88 03/02/2014 3:55 PM ARCHITECTURAL DRAFTER Temperature - - Respiratory Rate - - Oxygen Saturation - - Inhaled Oxygen Concentration - - Weight 59 kg (130 lb) 03/02/2014 3:55 PM ARCHITECTURAL DRAFTER Height - - Body Mass Index 18.79 01/02/2014 12:57 PM CDT documented in this encounter Progress Notes Apolonia Cm MD - 03/02/2014 4:39 PM CST Chief Complaint Patient presents with ??? Follow-up pelvic pain SUBJECTIVE: Yamilet Lora is a 29 y.o. female here with pelvic pain. Constant, burning/sharp lower abdominalpain. Antibiotics helped some. No pain with intercourse. Worse with sitting, but thinks that may be just because she is paying more attention to it. See note by Dr. Mendez from 02/23 - had been treated empirically with a 3-day course of ciprofloxacin with some improvement initially. She then starteda longer course but symptoms persisted so was changed to Augmentin on 02/26. Overall symptoms are unchanged. Urine culture from 02/23 was negative. A pelvic ultrasound was ordered but not scheduled - Yamilet was unaware of this. No new sexual partners. She is and has had only 1 partner in her lifetime. No unusual vaginal discharge. She just finished her period - no change with pain with menstrual cycle. She had some pelvic pain in June of 2012 that she ended up having a pelvic ultrasound and CT for. she recalls having pain but isn't sure if it was the same type of pain she is currently having. She had some clue cells on wet prep at that time and was treated with Cleocin suppositories. OBJECTIVE: Vital Signs: BP 124/80 Pulse 88 Wt 58.968 kg (130 lb) BMI 18.78 kg/m2 LMP 2014 General: Alert, pleasant, no distress. Pelvic: external genitalia normal, vagina normal without discharge, cervix normal in appearance, no cervical motion tenderness, rectovaginal septum normal, uterus normal size, shape, and consistency, no adnexal masses or tenderness. Psych: Alert and oriented with normal affect and insight. ASSESSMENT AND PLAN: Yamilet was seen today for follow-up. Diagnoses and associated orders for this visit: Pelvic pain in female: Unclear etiology. Recalls pelvic pain that got better after being treated forsome sort of bacterial overgrowth in the past (BV treated with Cleocin suppositories - chart reviewed after she left). Will repeat UA in case a resistant bacteria will grow. In the meantime, continue Augmentin. If this workup negative, would pursue pelvic ultrasound and gynecology consult. - Sexually Transmitted Disease Probe SWAB (incl. GC and Chlamydia) - Urinalysis Routine, Micro/Culture if Pos; Future - Vaginosa DNA Probe Screening for malignant neoplasm of the cervix - Pap Smear Order Other Orders - HPV with 16 18 Genotyping Follow up - TBD based on lab results ITECTURAL DRAFTER documented in this encounter Plan of Treatment Not on filedocumented as of this encounter Procedures Procedure Name Priority Date/Time Associated Comments Diagnosis VAGINOSA DNA PROBE Routine 03/02/2014 4:20 PM Pelvic pain in R esults for this ARCHITECTURAL DRAFTER female procedure are i n the results section. HPV WITH 16 18 Routine 03/02/2014 4:20 PM Results for this GENOTYPING, ARCHITECTURAL DRAFTER procedure are i n CERVICAL/ENDOCERVICAL the re sults section. ANATOMICAL PATH Routine 03/02/2014 4:20 PM Result s for this LIQUID BASED ARCHITECTURAL DRAFTER procedure are i n the results section. PAP SMEAR ORDER Routine 03/02/2014 4:20 PM Screening for Resul ts for this ARCHITECTURAL DRAFTER malignant neoplasm procedure are in of the cervix the results section. SEXUALLY TRANSMITTED Routine 03/02/2014 4:20 PM Pelvic pain in Results for this DISEASE PROBE ARCHITECTURAL DRAFTER female procedure are in the results section. documented in this encounter Results VAGINOSA DNA PROBE (03/02/2014 4:20 PM ARCHITECTURAL DRAFTER) [employer] gist Method Time Signature Source Vaginal HP CONVERSION Site HP CONVERSION Vaginosis DNA No Melody HP CONVERSION Probe present Vaginosis DNA No Gardnerella HP CONVERSI ON Probe present Vaginosis DNA No Trichomonas HP CONVERSI ON Probe present Specimen (Source) Anatomical Collection Method Collection Time Re ceived Time Location / / Volume Laterality Vaginal: 03/02/2014 4:20 PM ARCHITECTURAL DRAFTER Apolonia Cm MD LAB_1 Performing Organization Address City/State/ZIP Code Phon e Number HP CONVERSION SEXUALLY TRANSMITTED DISEASE PROBE (03/02/2014 4:20 PM ARCHITECTURAL DRAFTER) Component Value Ref Test Analysis Performed At [facility] [employer] Method Time Signature Source Endocervical for HP CONVERSION molecular testing Site HP CONVERSION Chlamydia Chlamydia HP CONVERSION Trach DNA trachomatis NEGATIVE by DNA amplification GC DNA Neisseria HP CONVERSION gonorrhea NEGATIVE by DNA amplification. Specimen (Source) Anatomical Collection Method Collection Time Re ceived Time Location / / Volume Laterality Endocervical for 03/02/2014 4:20 molecular testing: PM ARCHITECTURAL DRAFTER Apolonia Cm MD LAB_1 Performing Organization Address City/State/ZIP Code Phon e Number HP CONVERSION Pap Smear (03/02/2014 4:20 PM ARCHITECTURAL DRAFTER) Specimen (Source) Anatomical Collection Method Collection Time Re ceived Time Location / / Volume Laterality 03/02/2014 4:20 PM ARCHITECTURAL DRAFTER Narrative HP CONVERSION - 03/18/2014 7:07 PM ARCHITECTURAL DRAFTER FINAL GYNECOLOGICAL CYTOLOGY REPORT Pathology #: [id number] ?Date Obtained: 03/02/2014 ? Date Received: 03/04/2014 INTERPRETATION/RESULTS: Atypical squamous cells of undetermined significance. Reflex HPV testing will be ordered, performed and r eported separately only for patients age 21 and older, per ACOG antoine manning. SPECIMEN ADEQUACY: Satisfactory for Evaluation. ??Endocervi elver cells/transformation zone component present. Verified on 03/18/2014 ??by IRMA KRAUSE MD (electronic signature) CLINICAL NOTES: ?Abnormal bleeding: No, LMP: , Hormonal TX: Yes LIQUID BASED PAP SMEAR SPECIMEN TYPE: ?CERVICAL & HPV REGARDLESS OF PA P RESULT PLEASE NOTE: The pap smear is a screening test design ed to aid in the detection of cervical cancer and its pre cursor lesions. It is not a diagnostic procedure and melvin uld not be used as the sole means of detecting cervical cancer. Both false-positive and false-negative report s may occur. ? End of Report Apolonia Cm MD LAB_1 Performing Organization Address City/State/ZIP Code Phon e Number HP CONVERSION HPV with 16 18 Genotyping (03/02/2014 4:20 PM ARCHITECTURAL DRAFTER) [facility] Method Time Signature HPV High Risk Not Detected HP CONVERSION 16 HPV High Risk Not Detected HP CONVERSION 18 Other HPV Not Detected HP CONVERSION High Risk Not 16/18 Comment: The [facility] HPV Test is a qualitative in v itro test for the detection of Human Papillomavirus in [facility] patient specimens. ??The test utilizes amplifica tion of target DNA by Polymerase Chain Reaction (PCR) and n ucleic acid hybridization for the detection of 14 hi gh-risk (HR) HPV types. The assay tests for high risk typ es (16, 18, 31, 33, 35, 39, 45, 51, 52, 56, 58, 59, 66 and 6 8). NOTE: This test was developed and its pe rformance characteristics determined by [facility] [employer]. It has not been cleared or approved by [facility]. The laboratory is regulated under CLIA as qualified to perform high-complexity testing. This test is used for clinical purposes. It should not be regarded as investigational or fo r research. Specimen Anatomical Collection Method Collection Time Receive d Time (Source) Location / / Volume Laterality 03/02/2014 4:20 PM 4 4:20 ARCHITECTURAL DRAFTER PM ARCHITECTURAL DRAFTER Apolonia Cm MD LAB_1 Performing Organization Address City/State/ZIP Code Phon e Number HP CONVERSION Pap Smear Order (03/02/2014 4:20 PM ARCHITECTURAL DRAFTER) [facility] gist Method Time Signature Pap Smear Collected HP CONVERSION Monolayer tracking test Specimen Anatomical Collection Method Collection Time Receive d Time (Source) Location / / Volume Laterality 03/02/2014 4:20 PM 4 4:59 ARCHITECTURAL DRAFTER AM ARCHITECTURAL DRAFTER Apolonia Cm MD LAB_1 Performing Organization Address City/State/ZIP Code Phon e Number HP CONVERSION documented in this encounter Visit Diagnoses Diagnosis Pelvic pain in female - Primary Unspecified symptom associated with fema le genital organs Screening for malignant neoplasm of the cervix documented in this encounter Care Teams Metal Milling Machine Operator Relationship Specialty Start Date End Date Kristine Mendez MD PCP - General 01/01/14 [address] [place] [address] documented as of this encounter
--- OUTSIDE RECORDS SUMMARY | 2021-12-06 21:46 | XMS_ITS | Encounter Summary ---
:1985 Author Organization [employer] Address [address] [place] [address] Care Team Providers Name Role Phone Kristine Mendez MD Primary Care Provider Reason for Visit Reason Comments Procedure Encounter Details Date Type Department Care Team Description 01/27/2014 Initial Consult [facility] [address] ntoxic uninodular goiter (Primary Dx); Endocrinology MD Eduar Polycystic ovaries [address] [facility] [address] [facility] [place] [address] [phone] Social History Tobacco Use Types Packs/Day Years Used Date Smoking Tobacco: Never Alcohol Use Standard Drinks/Week Comments No 0 (1 standard drink = 0.6 oz pure alcoho l) Sex Assigned at Date Recorded Not on file documented as of this encounter Patient Instructions Patient InstructionsLeann Magaña MD - 01/27/2014 12:02 PM CDT Follow up information after your thyroid nodule Fine Needle Aspiration (FNA) You will not notice any problem from the topical anesthetic. You may remove the Band-Aid in a couple of hours. Do not do vigorous exercise today. No precautions tomorrow. You may have tenderness or bruising over the next few days. If the tenderness is bothersome, then you may take Tylenol or Advil as needed. In a few days, we will call you with the pathology results of the material removed from your thyroidnodule. If it is benign, then usually we would like to see you in 6 months. You can call [phone] to set up an appointment. If there are not enough cells to find out what the nodule is, which occurs about 5% of the time, then we may have to repeat the needle aspiration in a few weeks. This occurs sometimes, because of the nature of the nodule: the cells of some nodules do not readily breakup and enter the needle. It is notdue to error or poor technique. If the procedure is repeated, please be aware that there will be a charge for both procedures. If there are any suspicious cells, then we will refer you to a thyroid surgeon to remove that half of the thyroid and possibly the whole thyroid. If the whole thyroid is removed, then you would need totake thyroid hormone replacement. documented in this encounter Progress Notes Leann Magaña MD - 01/28/2014 1:23 PM CDT Quick Note: [place] pt. Please let pt know that thyroid fna was benign. RTC in 6 months as planned. Leann Magaña MD - 01/27/2014 12:15 PM CDT Progress Notes signed by Leann Magaña MD at 02/18/142044 Author: Leann Magaña MD Service: (none) Author Type: Physician Filed: 02/18/142044 Note Time: 01/28/1445 Status: Signed Manager Web Application: Leann Magaña MD (Physician) NAME: YAMILET LORA MR#: [id number] CSN: [id number] AUTHENTICATING CLINICIAN: Leann Magaña MD CONFIRM #: [id number] LOC: 432 CLINIC PROGRESS NOTE DATE OF VISIT: 01/27/2014 : 1985 SUBJECTIVE: Yamilet is a 28-year-old female presenting for a right ultrasound-guided thyroid FNA and also followup of newly diagnosed polycystic ovarian syndrome. The patient has a history of oligomenorrhea, acne, and hirsutism. She was seen previously by Dr. Wallis. Labs excluded worrisome causes of hirsutism.A 17- hydroxyprogesterone was normal range. The patient reports that she has previously used Loestrinbirth control without side effects. She was interested in trying spironolactone, as well. We reviewed the thyroid FNA procedure. Informed consent was obtained. The patient was prepped in theusual fashion. Lidocaine 1% was used for local anesthesia. Five passes were made with a 25-gauge needle. The patient did have a vasovagal episode, but otherwise, no complications. ASSESSMENT: 1. Right ultrasound-guided thyroid fine-needle aspiration. 2. Polycystic ovarian syndrome. PLAN: 1. The patient was reassured regarding the benign nature of most thyroid nodules. She will be calledlater this week with FNA results. 2. If benign, return to clinic in [address] Wallis for repeat ultrasound. If nondiagnostic,repeat the FNA. If abnormal, pursue surgery. 3. We reviewed lab findings and treatment options. The patient opted to try Loestrin control. We reviewed risk for nausea, headache, and irregular bleeding. We also reviewed risk for DVT. The patient does not smoke. Plan to also start spironolactone 100 mg daily. We reviewed risk for polyuria, li ghtheadedness, and teratogenicity. The patient will plan to stop this medication before discontinuing control. Follow up response in 6 months. Total time 15 minutes outside of the FNA. Counseling time 10 minutes spent reviewing treatment plan. RMM:MEDQ C: CONFIRM #: [id number] documented in this encounter Miscellaneous Notes Miscellaneous - 06/08/2016 3:31 PM CSTNotes Recorded by Leann Magaña MD on 01/28/2014 at 1:23 PMPoonuru pt. Please let pt know that thyroid fna was benign. RTC in 6 months as planned. REPAIRER documented in this encounter Plan of Treatment Not on filedocumented as of this encounter Procedures Procedure Name Priority Date/Time Associated Diagnosis Comme nts CYTOLOGY CLINIC Routine 01/27/2014 11:50 AM Nontoxic uninodula r Results for this TRACKING TEST CDT goiter procedure are in the results section. NGYN CYTO FINAL Routine 01/27/2014 11:50 AM Resul ts for this REPORT CDT procedure are i n the results section. ENDO CLINIC US Routine 01/27/2014 12:00 AM Nontoxic uninodular Results for this GUIDANCE FOR FNA CDT goiter procedure a re in the results section. documented in this encounter Results N/O LAB NGYN CYTO FINAL REPORT (01/27/2014 11:50 AM CDT) Specimen (Source) Anatomical Collection Method Collection Time Re ceived Time Location / / Volume Laterality 01/27/2014 11:50 AM CDT Narrative HP CONVERSION - 01/28/2014 1:18 PM CDT ? FINAL CYTOLOGY REPORT Pathology #: [id number] ?Date Obtained: 01/27/2014 ? Date Received: 01/27/2014 DIAGNOSIS: Right thyroid, fine needle aspiration: -Benign; consistent with a benign folli cular nodule, includes ?? adenomatoid nodule, colloid nodule, etc.). ?JUAN WILSON MD ? (electronic signature) ? 01/28/2014 ??13:03 CLINICAL NOTES: Right thyroid nodule ORGAN/TISSUE SITE: Right thyroid fine needle aspiration GROSS DESCRIPTION: Received are thirteen fixed smears and one air dried smear designated right thyroid fine needle aspiration. T hirteen Papanicolaou stained slides and one Bell's stained smear a re submitted for cytologic study. MICROSCOPIC DESCRIPTION: Microscopic examination of cytologic sl ides was performed. 14 direct smears are examined. ??There are occasi onal monolayer sheets of bland thyroid epithelium will round nuclei ar ranged in a Honeycomb Pattern. The background has a small amount of co lloid. ??Hemosiderin laden macrophages are also occasionally noted . ??No intranuclear cytoplasmic inclusions or grooves are identified. ? ?The features are most consistent with a benign adenomatoid no dule. CPT Codes: ?24090 x 1 ? End of Report Transcriptions 06/08/2016 3:31 PM CSTNotes Recorded by Leann Magaña MD on 01/28/2014 at 1:23 PMPoonuru pt. Please let pt know that thyroid fna was benign. RTC in 6 months as planned. Leann Magaña MD LAB_1 Performing Organization Address City/State/ZIP Code Phon e Number HP CONVERSION LAB CYTOLOGY CLINIC TRACKING TEST (01/27/2014 11:50 AM CDT) Analysis Performed At Patho logist Time Signature CYTOLOGY Received HP CONVERSION CLINIC Specimen Anatomical Collection Method Collection Time Receive d Time (Source) Location / / Volume Laterality 01/27/2014 11:50 01/27/2014 2:48 AM CDT PM CDT Leann Magaña MD LAB_1 Performing Organization Address City/State/ZIP Code Phon e Number CONVERSION ENDO CLINIC US GUIDANCE FOR FNA (01/27/2014 12:00 AM CDT) Anatomical Region Laterality Modality Other Specimen (Source) Anatomical Location Collection Method / Collectio n Time Received Time / Laterality Volume Narrative 01/27/2014 12:00 AM CDT Is patient ?->No Relevant signs and symptoms->241.0 We reviewed the thyroid FNA procedure. ? ?Informed consent was obtained. ??The patient was prepped in t he usual fashion. Lidocaine 1% was used for local anesthes ia. ??Five passes were made with a 25-gauge needle. ??The patie nt did have a vasovagal episode, but otherwise, no complications . ASSESSMENT: 1. ?? Right ultrasound-guided thyroid fi ne-needle aspiration. ?? Leann Magaña MD PN CLINIC US ORDERABLES documented in this encounter Visit Diagnoses Diagnosis Nontoxic uninodular goiter (HRC) - Prima ry Nontoxic uninodular goiter Polycystic ovaries (HRC) Polycystic ovaries documented in this encounter Care Teams U.[place]. Senator Relationship Specialty Start Date End Date Kristine Mendez MD PCP - General 01/01/14 [address] [place] [address] documented as of this encounter
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
--- OUTSIDE RECORDS SUMMARY | 2021-12-06 21:46 | XMS_ITS | Encounter Summary ---
:1985 Author Organization [email or web address] Address [address] [place] [address] Care Team Providers Name Role Phone Kristine Mendez MD Primary Care Provider Reason for Visit Procedure/Equipment (Routine) - Incomplete Specialty Diagnoses / Procedures Referred By Contact Refer red To Contact Diagnoses Left breast mass Madeleine Page, INSTALLATION DRAFTER, CART ATTENDANT [place] [address] [place] [address] Referral ID Status Reason Start Date Expiration Date Visits V isits Requested Authorized [id number] Incomplete 05/28/2019 08/26/2020 1 1 Encounter Details Date Type Department Care Team Description 06/03/2019 Ancillary Procedure [facility] [address] Madeleine Page , Left breast mass Mammography INSTALLATION DRAFTER, CART ATTENDANT [address] [facility] [address] [place] [phone] Social History Tobacco Use Types Packs/Day Years [...] documented as of this encounter Progress Notes Madeleine Page APRN, CNP - 06/03/2019 2:15 PM CST Left breast pathology fibroadenoma. LOGAN SPECIALIST Madeleine Page APRN, CNP - 06/03/2019 2:15 PM CST Left breast biopsy pathology fibroadenoma and stromal fibrosis. Start screening mammogram at age 38.Sent [employer] message. MS-NAWAF SPECIALIST documented in this encounter Plan of Treatment Not on filedocumented as of this encounter Procedures Procedure Name Priority Date/Time Associated Diagnosis Comme nts MM US BX BREAST LT Routine 06/03/2019 2:34 PM Left breast mass Results for this EAP SPECIALIST procedure are i n the results section. SURGICAL PATHOLOGY, Routine 06/03/2019 2:34 PM Left breast mas s Results for this BREAST EAP SPECIALIST procedure are i n the results section. documented in this encounter Results MM US Bx Breast Lt (06/03/2019 2:34 PM EAP SPECIALIST) Anatomical Region Laterality Modality Breast Left Ultrasound Specimen (Source) Anatomical Collection Method Collection Time Re ceived Time Location / / Volume Laterality 06/03/2019 2:11 PM EAP SPECIALIST Impressions 06/05/2019 10:46 AM EAP SPECIALIST ULTRASOUND GUIDED BREAST BIOPSY ? HISTORY: ??Palpable left breast lump at 12:00, 3 cm from the nipple. A smaller nonpalpable circumscribed mass in the subareolar left breast will be considered of a similar pathology. PROCEDURE: ??The risks and benefits of t he procedure were explained to the patient and the patient signed a written consent form. ??Patient identification, the proper side, and site of the procedure wer e verified. ??The patient was positioned on the ultrasound table. ??Sterile technique was utilized. ??The lesion at the 12 o'clock position, 3 cm from the nipple, in the left breast was localized with u ltrasound. ??10 mL of 1% lidocaine and 6 mL 1% lidocaine with epinephrine was used for local anesthesia. Under ultrasound guidance, a 12 gauge Celero ??vacuum-assisted biopsy needle system was used to o btain 2 core specimens through the lesio n from a lateral approach. ??A coil Hydromark biopsy marking clip was placed. Sonographically, the biopsy marking clip is seen in the midportion of the biopsied mass, therefore post-clip mammogram is deferred. ?? There were no immediate complications. ??Pressure was held at the biopsy site for 5 minutes. Discharge instructions were given. ?? SUMMARY: Ultrasound-guided biopsy of a p alpable mass in the left breast at 12:00, 3 cm from the nipple, marked with a hydromark coil ??marking clip. PATHOLOGY: ?? FINAL DIAGNOSIS A. ??Breast, left, 12 o'clock ultrasound , biopsy: - ??Fibroadenoma and stromal fibrosis RAD/PATH CONCORDANCE: Concordant RECOMMENDATION: Clinical follow-up. Sylvia richardson screening mammography age 38. ? Procedure Note Luann Reyes MD - 06/05/2019Formatti ng of this note might be different from the original. IMPRESSION ULTRASOUND GUIDED BREAST BIOPSY HISTORY: Palpable left breast lump at 12 :00, 3 cm from the nipple. A smaller nonpalpable circumscribed mass in the subareolar left breast will be considered of a similar pathology. PROCEDURE: The risks and benefits of the procedure were explained to the patient and the patient signed a written consent form. Patient identification, the proper side, and site of the procedure were verified. The patient was positioned on the ultras ound table. Sterile technique was utilized. The lesion at the 12 o'clock position, 3 cm from the nipple, in the left breast was localized with ultrasound. 10 mL of 1% lidocaine and 6 mL 1% lidocaine with epinephrine was u sed for local anesthesia. Under ultrasound guidance, a 12 gauge Celero vacuum-assisted biopsy needle system was used to obtain 2 core specimens through the lesion from a lateral approach. A coil Hydromark bio psy marking clip was placed. Sonographically, the biopsy marking clip is seen in the midportion of the biopsied mass, therefore post-clip mammogram is deferred. There were no immediate complications. Pressure was he ld at the biopsy site for 5 minutes. Discharge instructions were given. SUMMARY: Ultrasound-guided biopsy of a p alpable mass in the left breast at 12:00, 3 cm from the nipple, marked with a hydromark coil marking clip. PATHOLOGY: FINAL DIAGNOSIS A. Breast, left, 12 o'clock ultrasound, biopsy: - Fibroadenoma and stromal fibrosis RAD/PATH CONCORDANCE: Concordant RECOMMENDATION: Clinical follow-up. Sylvia richardson screening mammography age 38. Madeleine Page APRN, CNP RAD ERIC Surgical Path, Breast (06/03/2019 2:34 PM EAP SPECIALIST) Component Value Ref Test Analysis Performed At [facility] gist Range Method Time Signature Case Report Surgical Pathology ?Case: [id number] ? 06/04/2019 SCIENTOLOGIST Authorizing Provider: ??Madeleine Azevedo APRN, CNP Collected: ? 06/03/2019 02:34 PM ? 1:42 PM EAP SPECIALIST LABORATOR Y Ordering Location: ? [place] [address] ? Received: ?06/03/2019 03:50 PM ? Mammography ? Pathologist: ? Avtar Martinez MD ? Specimen: ?Breast, left, 12 o'clock ultrasound ? FINAL A. Breast, left, 12 o'clock ultrasound, biopsy: 06/04/2019 SCIENTOLOGIST Electronically DIAGNOSIS ?? Fibroadenoma and stromal fibrosis 1:4 2 PM EAP SPECIALIST LABORATORY signed by Avtar Martinez MD has reviewed this case and concurs with t elsie diagnosis. MD Joesph on 06/04/2019 a t 1:42 PM Gross A. The specimen is received in formalin and labeled with the patient's name and Breast, left, 12 o'clock ultrasound.?? The specimen consists of 2.8 x 0.6 x 0.3 cm aggregate of multiple entangled and f 08/2019 SCIENTOLOGIST Description ragmented landeros-yellow cores o f soft tissue.?? The specimen is inked green.?? The specimen was collected and placed in formalin at 2:33 PM, 06/03/2019.?? The specimen is entirely submitted in 1 cassette. SH 1:42 PM EAP SPECIALIST LABORATORY Clinical palpable 06/04/2019 SCIENTOLOGIST Information 1:42 PM EAP SPECIALIST LABORATORY Microscopic Microscopic 06/04/2019 SCIENTOLOGIST Description examination is 1:42 PM EAP SPECIALIST LABORATORY performed. Embedded 06/04/2019 SCIENTOLOGIST Images 1:42 PM EAP SPECIALIST LABORATORY Specimen Anatomical Collection Method Collection Time Receive d Time (Source) Location / / Volume Laterality Tissue BREAST STRUCTURE / 06/03/2019 2:34 PM 07/2019 3:50 Unknown EAP SPECIALIST PM EAP SPECIALIST Madeleine Page APRN, CART ATTENDANT LAB PATHOLOGY Performing Organization Address City/State/ZIP Code Phon e Number [facility] [address] [place] [address] documented in this encounter Visit Diagnoses Diagnosis Left breast mass Lump or mass in breast documented in this encounter Administered Medications Inactive Administered Medications - up to 3 most recent administrations Medication Order MAR Action Action Date Dose Rate Site lidocaine (XYLOCAINE) 1 % Given 06/03/2019 3:00 PM EAP SPECIALIST 10 mL Other injection 10 mL 10 mL, Subcutaneous, ONCE, On Sun06/03/19 at 1500, For 1 dose lidocaine-epinephrine 1 %-1:[id number] Given 06/03/2019 3:00 PM EAP SPECIALIST 6 mL Other injection 6 mL 6 mL, Subcutaneous, ONCE, On Sun06/03/19 at 1500, For 1 dose documented in this encounter Care Teams Tool Maintenance Technician Relationship Specialty Start Date End Date Kristine Mendez MD PCP - General 01/01/14 [address] [place] [address] documented as of this encounter
--- OUTSIDE RECORDS SUMMARY | 2021-12-06 21:46 | XMS_ITS | Encounter Summary ---
:1985 [facility] Address [address] [place] [address] Care Team Providers Name Role Phone Kristine Mendez MD Primary Care Provider Reason for Visit Reason Comments ABDOMINAL CRAMPING--ED Encounter Details Date Type Department Care Team Description 09/29/2020 Nurse Triage Careline Unknown, ABDOMINAL CRAMPING--ED [address] Physician [place], [place] [address] [phone] [place], [place] [address] Social History Tobacco Use Types Packs/Day Years [...] documented as of this encounter Nursing Notes Allie Mckeon RN - 09/29/2020 3:35 PM CDT Verified patient identity using three identifiers: Yes Situation/Background (brief explanation of current symptoms/situation): I am 6-7 weeks and have had pelvic pain for the last week, it has gotten worse the last 4 days. Rates at worst 7/10. Comes and goes and lasts for a few seconds. Tulia/Parity: Gestational Age (by GAURAV or LMP): per patient 6-7 weeks Reviewed with patient pertinent medical history and risk status (as it relates to the call): Yes None, has first OB visit 10/14/20 at [facility][note 3]. PCOS. Reviewed with patient pertinent medications (as they relate to call): Yes None Reviewed with patient pertinent allergies (as they relate to call): Patient has no known allergies. Reason for Disposition ? ? [1] Intermittent lower abdominal pain (e.g., cramping) AND [2] present > 24 hours Answer Assessment - Initial Assessment Questions 1. ONSET: When did this bleeding start? Today 2. DESCRIPTION: Describe the bleeding that you are having. How much bleeding is there? - SPOTTING: spotting, or pinkish / brownish mucous discharge; does not fill panti-liner or pad - MILD: less than 1 pad / hour; less than patient's usual menstrual bleeding - MODERATE: 1-2 pads / hour; small-medium blood clots (e.g., pea, grape, small coin) - SEVERE: soaking 2 or more pads/hour for 2 or more hours; bleeding not contained by pads or continuous red blood from vagina; large blood clots (e.g., golf ball, large coin) There was some blood on tissue when I wiped, placed a pad and no bleeding since. 3. ABDOMINAL PAIN SEVERITY: If present, ask: How bad is it? (e.g., Scale 1-10; mild, moderate, or severe) - MILD (1-3): doesn't interfere with normal activities, abdomen soft and not tender to touch - MODERATE (4-7): interferes with normal activities or awakens from sleep, tender to touch - SEVERE (8-10): excruciating pain, doubled over, unable to do any normal activities Rates dull achy pain, sometimes stabbing or burning at 7/10 but only lasts for a few seconds. It isin my lower pelvic area. 4. : Do you know how many weeks or months you are? When was the first day of your last normal menstrual period? 6-7 weeks 5. HEMODYNAMIC STATUS: Are you weak or feeling lightheaded? If so, ask: Can you stand and walk normally? No, I feel fine otherwise. 6. OTHER SYMPTOMS: What other symptoms are you having with the bleeding? (e.g., passed tissue, vaginal discharge, fever, menstrual-type cramps) No tissue passed, no blood clots. No vaginal discharge, no fever. Protocols used: - VAGINAL BLEEDING LESS THAN 20 WEEKS [id number] Advised careline available 20/11. Call back for any concerns, new or worsening symptoms. Sheila Morris - 09/29/2020 3:27 PM CDT Verified patient identity using three identifiers: Yes Caller's relationship to patient: Self At which care system or clinic is the patient normally seen? [facility] Symptoms Describe the reason for call/symptoms (include location and duration if applicable): pt states she is 6 to 7 weeks states she has been experiencing lower pelvic cramping for the last 4 to 5 days. States no other symptoms Plan:Caller transferred directly to CareLine nurse. documented in this encounter Plan of Treatment Not on filedocumented as of this encounter Visit Diagnoses Not on filedocumented in this encounter Care Teams Computer Systems Architect Relationship Specialty Start Date End Date Kristine Mendez MD PCP - General 01/01/14 [id number] [place] [id number] documented as of this encounter
--- OUTSIDE RECORDS SUMMARY | 2021-12-06 21:46 | XMS_ITS | Encounter Summary ---
:1985 Author Organization [facility] Address [address] [place] [address] Care Team Providers Name Role Phone Kristine Mendez MD Primary Care Provider Encounter Details Date Type Department Care Team Description 11/11/2017 edith Osuna [phone] Social History Tobacco Use Types Packs/Day Years [...] encounter Progress Notes FAMILY MEDICINEEDITH PROVIDER - 11/13/2017 12:00 AM CDT edith Addendum Treatment Plan Diagnosis Sinusitis Visit Date November 11, 2017 Addendum Date November 13, 2017 Yamilet Lora Date of : 81 Provider Kiley Thakkar, Nurse Practitioner Note From Provider Michael Woodard,Thanks for Requesting a Call Back and discussing your symptoms with me. Hope you feel better soon, Judi Treatment Plan Since you have a bacterial infection, let's try an antibiotic. I sent a prescription to [facility]/pharmacy. I?ve prescribed high dose amoxicillin, which the latest evidence recommends as the best and safest antibiotic to clear up your bacterial infection faster. I?ve also listed a few self-care tips to soothe your symptoms while the antibiotic kills the bacteria. If your symptoms don't improve after 4 days, or if you have questions, please use the Request a Call Back button and we'll adjust your treatment for free. Order(s) amoxicillin 500 mg capsule Take 2 capsule by mouth three times a day as directed for 7 days Note: Refills: None Sent To: [facility]/pharmacy [id number] [place] [address]. [place] [address] Treatment Plan Self Care Tip Topics Inflammation Relief with Ibuprofen Avoid Decongestants and Antihistamines Warm Packs Reduce Inflammation with Nasal Steroids Steam Therapy What to Expect Our goal is to treat the infection and to reduce the inflammation of your sinus tissues to promote drainage. This will make you feel better quickly and help the antibiotic work faster. If you follow the recommendations I made on the Treatment tab, your symptoms should begin to improve in 4 days of following this treatment plan. If your symptoms haven?t improved after 4 days, please click the Request a Call Back button and we?ll call you back in about 30 minutes to adjust your treatment for free. What to Watch Out For Give us a call immediately if you experience: ??? Vision changes ??? Redness occurring in the face ??? Increasing congestion ??? Worsening pain ??? High fevers My Conditions, Orders, Allergies as of November 13, 2017 Standard condition list None Current orders amoxicillin (amoxicillin) fluticasone (fluticasone) Allergies None [facility] Information [id number] [employer] We are an online clinic open 20/11. If you have any questions or comments about this visit, please call or email [email or web address]. FAMILY MEDICINEEDITH PROVIDER - 11/11/2017 12:00 AM CDT edith Treatment Plan Diagnosis Viral Sinusitis Worsened by Allergies Visit Date November 11, 2017 Yamilet Lora Date of : 81 Provider Rebeca Lopez, Nurse Practitioner Note From Provider Og Woodard. Let's get you feeling better! Your sinus infection is a viral infection aggravated by your underlying allergies at this point. Your symptoms are currently caused by inflammation-- not bacteria. Our focus needs to be on decreasing inflammation and thinning out the mucus so you can feel better, faster! The ibuprofen (800 mg every 8 hours for 3 days) and Mucinex (plain guaifenesin on a schedule for 3 days) as listed, along with Flonase (fluticasone is generic form, this med can be purchased over the counter if you prefer) will help you feel better. Check out the other self-care tips I've listed above and be sure to watch the sinusitis video, too. A typical viral illness lasts about 7-10 days. If your symptoms don't improve or happen to worsen, please Request a Call Back. We'll adjustyour treatment plan for free. Feel better soon. Rebeca ORANGE PICKER Treatment Plan Let?s get you feeling better in the next 24 hours by using a prescription nasal steroid and an effective blend of ivty-dtp-vwxcbys products to get you better faster. The nasal steroid will reduce congestion and ease the pain and stuffiness caused by this infection and your allergies. It?s important to continue the nasal steroid for at least 1 month for the best results. Because this infectionis caused by a virus, an antibiotic won?t be effective at helping your pain or treating the virus. I sent your prescription to [email or web address] . If your symptoms don?t improve after 24 hours, or if you have questions, Request a Call Back and we?ll adjust your treatment for free. Order(s) fluticasone 50 mcg/actuation spray,suspension [place] 2 spray into both nostrils once a day as directed for 30 days Note: Refills: 2 Sent To: [email or web address] [id number] [facility] [address] Treatment Plan Self Care Tip Topics Your Viral Sinus Infection and Allergies: A Two-part Plan Let?s Talk Allergies Viral Sinus Infection Relief: Reduce Inflammation with Ibuprofen Using Your Nasal Steroid Expectorant to Thin and Drain Mucus Antihistamine for Runny Nose, Congestion and Sneezing What to Expect Our two-part plan will help you feel better quickly and reduce the likelihood of future sinus infections. First, we?ll treat your infection with a short term plan to get rid of the bug, reduce sinus inflammation and promote drainage. We?ll also get you started on a longer term allergy plan, much like an other sports official would, to treat chronic nasal congestion and help prevent future sinus infections. If you follow the recommendations I made in the Treatment section, your symptoms should begin to improve over the next 24 hours. If your symptoms haven?t improved after 1 day, select Help to Request a Call Back and we?ll call you back in about 30 minutes to adjust your treatment for free. What to Watch Out For Give us a call immediately if you experience: ??? Vision changes ??? Redness and swelling of the eyes or face ??? Increasing congestion ??? Worsening pain ??? High fevers My Conditions, Orders, Allergies as of November 11, 2017 Standard condition list None Current orders fluticasone (fluticasone) Allergies None [employer] Information [id number] [employer] We are an online clinic open 20/11. If you have any questions or comments about this visit, please call or email [email or web address]. documented in this encounter Plan of Treatment Not on filedocumented as of this encounter Visit Diagnoses Not on filedocumented in this encounter Care Teams Customer Account Representative Relationship Specialty Start Date End Date Kristine Mendez MD PCP - General 01/01/14 [id number] [place] [address] [place] [id number] documented as of this encounter
--- OUTSIDE RECORDS SUMMARY | 2021-12-06 21:46 | XMS_ITS | Encounter Summary ---
:1985 Author Organization [facility] Address [address] [place] [address] Care Team Providers Name Role Phone Kristine Mendez MD Primary Care Provider Reason for Referral (Routine) - Closed Specialty Diagnoses / Procedures Referred By Contact Refer red To Contact Diagnoses Family history of colon cancer Gabriela Mcfarlane, DO Procedures Endoscopy, colon, diagnostic [address] [place] [address] Referral ID Status Reason Start Date Expiration Date Visits Requ ested Visits Authorized [id number] Closed 01/10/2019 04/10/2020 1 1 Reason for Visit (Routine) - Closed Specialty Diagnoses / Procedures Referred By Contact Refer red To Contact Diagnoses Family history of colon cancer Gabriela Mcfarlane, DO Procedures Endoscopy, colon, diagnostic [address] [address] [place] [address] Referral ID Status Reason Start Date Expiration Date Visits Requ ested Visits Authorized [id number] Closed 01/10/2019 04/10/2020 1 1 Encounter Details Date Type Department Care Team Description 02/10/2019 [facility] Jefferson Carrasco histor y of Encounter Gastroenterology MD Gabriel colon cancer Endoscopy Procedures [address] [address] [place] [address] [place] [address] Social History Tobacco Use Types Packs/Day Years [...] Sign Reading Time Taken Comments Blood Pressure 126/71 02/10/2019 2:45 PM CDT Pulse 75 02/10/2019 2:45 PM CDT Temperature - - Respiratory Rate 16 02/10/2019 2:45 PM CDT Oxygen Saturation 100% 02/10/2019 2:45 PM CDT Inhaled Oxygen Concentration - - Weight 61.2 kg (135 lb) 02/10/2019 1:19 PM CDT Height 177.8 cm (5' 10) 02/10/2019 1:19 PM CDT Body Mass Index 19.37 02/10/2019 1:19 PM CDT documented in this encounter Medications at Time of Discharge Medication Sig Dispensed Refills Start Date End Date bisacodyl (DULCOLAX) 5 MG Take 4 tablets by 4 Tablet 0 07/201805/23/2019 enteric coated tablet mouth once at 5 PM the evening before your procedure. norethindrone-ethinyl Take 1 tablet by 84 tablet 4 01/28/20 14 05/23/2019 estradiol (AKA mouth daily (every MICROGESTIN 05/19) 24 hours). Follow 1mg-20mcg tablet package directions polyethylene Take as directed in 4000 mL 0 01/31/2019 glycol-electrolyte patient (GO-LYTELY) 236 g oral instructions: Drink solution 2000 mL at 6 PM the evening before and 2000 mL 4 hours before your procedure. spironolactone (AKA Take 1 tablet by 90 tablet 4 01/27/2014 05/23/2019 ALDACTONE) 100 MG tablet mouth daily (every 24 hours). documented as of this encounter Progress Notes Laura Gorman RN - 02/10/2019 2:47 PM CDT Patient alert, oriented. Denies pain at this time. Tolerating liquids. Discussed discharge teaching.Patient/family given handouts. Verbalized understanding. Ana Hendrix RN - 02/10/2019 2:21 PM CDT Patient tolerated procedure. Medications given intermittently for pain. Encourage deep breathing forsats 90% or below. Vitals charted per department protocol. Jefferson Carrasco MD - 02/10/2019 1:30 PM CDT Colonoscopy in 3 years, follow up polyps CHILL TECHNICIAN documented in this encounter Procedure Notes Jefferson Carrasco MD - 02/10/2019 2:51 PM CDT Patient Name: Yamilet Lora Procedure Date: 02/10/2019 2:51 PM Date of : 1985 Admit Type: Outpatient Age: 33 Note Status: Finalized Attending MD: Jefferson Carrasco MD Procedure: Colonoscopy Indications: Screening in patient at increased risk: Colorectal cancer in sister at age 31 Providers: Jefferson Carrasco MD Referring MD: Gabriela Mcfarlane Medicines: Midazolam 2 mg IV, Fentanyl 100 micrograms IV Complications: No immediate complications. Procedure: After I obtained informed consent, the scope was passed under direct vision. Throughout the procedure, the patient's blood pressure, pulse, and oxygen saturations were monitored continuously. The [id number] was introduced through the anus and advanced to the cecum, identified by appendiceal orifice and ileocecal valve. The colonoscopy was performed without difficulty. The patient tolerated the procedure well. The quality of the bowel preparation was good. Findings: A 10 mm polyp was found in the cecum. The polyp was sessile. The polyp was removed with a saline injection-lift technique using a cold snare. Resection and retrieval were complete. A 5 mm polyp was found in the cecum. The polyp was sessile. The polyp was removed with a cold snare. Resection and retrieval were complete. The retroflexed view of the distal rectum and anal verge was normal and showed no anal or rectal abnormalities. Moderate Sedation: Moderate (conscious) sedation was administered by the endoscopy nurse and supervised by the endoscopist. The patient's oxygen saturation, heart rate, blood pressure and response to care were monitored. Total physician intraservice time was 21 minutes. Impression: - One 10 mm polyp in the cecum, removed using injection-lift and a cold snare. Resected and retrieved. - One 5 mm polyp in the cecum, removed with a cold snare. Resected and retrieved. - The distal rectum and anal verge are normal on retroflexion view. Recommendation: - Await pathology results. - No aspirin, ibuprofen, naproxen, or other non-steroidal anti-inflammatory drugs for 2 days after polyp removal. - If the pathology report reveals adenomatous tissue, then repeat the colonoscopy for surveillance of multiple polyps in 3 years otherwise in 5 years. - Return to primary care physician as previously scheduled. Procedure Code(s): --- Professional --- 99151, Colonoscopy, flexible; with removal of tumor(s), polyp(s), or other lesion(s) by snare technique 35084, Colonoscopy, flexible; with directed submucosal injection(s), any substance G0500, Moderate sedation services provided by the same physician or other qualified health disabilities caregiver performing a gastrointestinal endoscopic service that sedation supports, requiring the presence of an independent trained observer to assist in the monitoring of the patient's level of consciousness and physiological status; initial 15 minutes of intra-service time; patient age 5 years or older (additional time may be reported with 63266, as appropriate) Diagnosis Code(s): --- Professional --- Z80.0, Family history of malignant neoplasm of digestive organs D12.0, Benign neoplasm of cecum CPT copyright 2018 [employer]. All rights reserved. The codes documented in this report are preliminary and upon head kiln operator review may be revised to meet current compliance requirements. Jefferson Carrasco MD 02/10/2019 2:30:24 PM This document has been electronically signed. Number of Addenda: 0 Note Initiated On: 02/10/2019 2:51 PM Endoscopy Report documented in this encounter Plan of Treatment Not on filedocumented as of this encounter Procedures Procedure Name Priority Date/Time Associated Diagnosis Comme nts ENDOSCOPY, COLON, Routine 02/10/2019 2:51 PM Family history of Results for this SCREENING/DIAGNOSTI CDT colon cancer procedur e are in C the results section. SURGICAL PATHOLOGY, Routine 02/10/2019 2:24 PM Family history of Results for this GI CDT colon cancer procedure are i n the results section. documented in this encounter Results Endoscopy, [...] turations were monitored ? continuou sly. The [id number] was ? introduce d through the anus [...] Code(s): ?? --- Professional - -- ? 69755, Co lonoscopy, flexible; with ? removal o f tumor(s), polyp(s), or ? other les ion(s) by snare technique ? 77523, Co lonoscopy, flexible; with ? directed submucosal injection(s), any ? substance ? G0500, Mo derate sedation services ? provided by the same physician or ? other [facility] health care ? professio nal performing a ? gastroint estinal endoscopic service ? that amador tion supports, requiring the ? presence of an independent trained ? observer to assist in the monitoring ? of the pa tient's level of ? conscious ness and physiological ? status; i nitial 15 minutes of ? intra-ser vice time; patient age 5 ? years or older (additional time may ? be report [place] [address], as ? appropria te) Diagnosis Code(s): ?? --- Professional - -- ? Z80.0, Fa sebastian history of malignant ? neoplasm of digestive organs ? D12.0, Be nign neoplasm of cecum CPT copyright 2018 [employer]. All rights reserved. The codes documented in this report are preliminary and upon head kiln operator review may be revised to meet current [...] and oxygen saturations were monitored continuously. The [id number] was introduced through the anus and advanced [...] previously scheduled. Procedure Code(s): --- Professional --- 48110, Colonoscopy, flexible; with removal of tumor(s), polyp(s), or other lesion(s) by snare technique 32598, Colonoscopy, flexible; with directed submucosal injection(s), any substance G0500, Moderate sedation services provided by the same physician or other qualified health disabilities caregiver performing a gastrointestinal endoscopic service that sedation supports, requiring the presence of an independent trained observer to assist in the monitoring of the patient's level of consciousness and physiological status; initial 15 minutes of intra-service time; patient age 5 years or older (additional time may be reported with 26363, as appropriate) Diagnosis Code(s): --- Professional --- Z80.0, Family history of malignant neoplasm of digestive organs D12.0, Benign neoplasm of cecum CPT copyright 2018 [employer]. All rights reserved. The codes documented in this report are preliminary and upon head kiln operator review may be revised to meet current compliance requirements. Jefferson Carrasco MD 02/10/2019 2:30:24 PM This document has been electronically si gned. Number of Addenda: 0 Note Initiated On: 02/10/2019 2:51 PM Endoscopy Report Gabriela Mcfarlane DO PN GI PROCEDURE ORDERABLES Performing Organization Address City/State/ZIP Code Phon e Number GI (PROVATION) GI (PROVATION) [place], [place] Surgical Path - GI (02/10/2019 2:24 PM CDT) Component Value Ref Test Analysis Performed At [facility] gist Range Method Time Signature Case Report Surgical Pathology ?Case: [id number] ? 02/13/2019 [facility] Authorizing Provider: ??Jefferson Vogt MD ? Collected: ? 02/10/2019 02:24 PM ? 9:35 AM LABORATOR Y Ordering Location: ? [facility] ? Received: ?02/10/2019 04:34 PM ? CDT ? Gastroenterology Endoscopy ? Procedures ? Pathologist: ? eJsse Villa MD ? Specimen: ?Colon, cecum, CECUM ? FINAL A. Colon, cecum, CECUM, polypectomy: [facility] Electronically DIAGNOSIS ?? Sessile serrated adenoma (s) 9:35 AM LABORATORY signed by CDT Gabriel Villa MD on 01/28 at 9:35 AM Gross A. The specimen is received in formalin and labeled with the patient's name and Colon, cecum, CECUM. The specimen consists of three landeros, flattened tissue fragments ranging from 0.3 cm to 1.5 cm in gre 02/13/2019 [facility] Description atest dimension. The largest fragment is bisected and the tissue is entirely submitted in one block. AW 9:35 AM LABOR ATORY CDT Clinical Polyp 02/13/2019 [facility] Information 9:35 AM LABORATORY CDT Microscopic Microscopic 02/13/2019 [facility] Description examination is 9:35 AM LABORATORY performed. CDT Embedded 02/13/2019 [facility] Images 9:35 AM LABORATORY CDT Specimen Anatomical Collection Method Collection Time Receive d Time (Source) Location / / Volume Laterality Tissue COLON STRUCTURE / 02/10/2019 2:24 PM 01/28 4:34 Unknown CDT PM CDT Jefferson Carrasco MD LAB PATHOLOGY Performing Organization Address City/State/ZIP Code Phon e Number [facility] [address] [place] [address] documented in this encounter Visit Diagnoses Diagnosis Family history of colon cancer Family history of malignant neoplasm of gastrointestinal tract documented in this encounter Administered Medications Inactive Administered Medications - up to 3 most recent administrations Medication Order MAR Action Action Date Dose Rate Site fentaNYL (SUBLIMAZE) injection Given 02/10/2019 2:20 PM CDT 100 mcg 25-100 mcg 25-100 mcg, Intravenous, PRN, Pain, moderate sedation, Starting on Sun02/10/19 at 1358, Until Sun03/03/19 at 0203, Administer in 25-100 mcg increments as directed by endoscopy procedure MD up to a total of 200 mcg. midazolam (VERSED) injection 0.5-2 mg Given 02/10/2019 2:21 PM CDT 2 mg 0.5-2 mg, Intravenous, PRN, Sedation, Starting on Sun02/10/19 at 1358, Until Sun03/03/19 at 0203, Administer in 0.5 - 2 mg increments as directed by endoscopy procedure MD up to a total of 6 mg sodium chloride 0.9% injection 10-60 mL Given 02/10/2019 2:21 PM CDT 20 mL 10-60 mL, Intravenous, PRN, Line Patency, Line Care, Starting on Sun02/10/19 at 1358, Until Sun03/03/19 at 0203 documented in this encounter Care Teams School Athletic Director Relationship Specialty Start Date End Date Kristine Mendez MD PCP - General 01/01/14 [address] [place] [address] documented as of this encounter
--- OUTSIDE RECORDS SUMMARY | 2021-12-06 21:46 | XMS_ITS | Encounter Summary ---
:1985 Author Organization [employer] Address [address] [place] [address] Care Team Providers Name Role Phone Kristine Mendez MD Primary Care Provider Reason for Visit Reason Comments LAB RESULTS Encounter Details Date Type Department Care Team Description 06/04/2019 Telephone [facility] [address], SURVEY RESEARCH TEACHER, LAB RESULTS Mammography DOWEL SANDER OPERATOR [address] [address] [place] [address] [place], [place] [address] (Wo rk) Social History Tobacco Use Types [...] file documented as of this encounter Nursing Lisa Newell - 06/04/2019 3:47 PM CST Patient was given pathology results. Patient stated she had some bruising. Patient will await letterwith radiologist recommendations. Instructed patient to call with any other concerns or questions. ENT ACCESS DIRECTOR documented in this encounter Plan of Treatment Not on filedocumented as of this encounter Visit Diagnoses Not on filedocumented in this encounter Care Teams Bilingual Teacher Assistant Relationship Specialty Start Date End Date Kristine Mendez MD PCP - General 01/01/14 [address] [place] [address] documented as of this encounter
--- OUTSIDE RECORDS SUMMARY | 2021-12-06 21:46 | XMS_ITS | Encounter Summary ---
:1985 Author Organization [facility] Address [address] [place] [address] Care Team Providers Name Role Phone Kristine Mendez MD Primary Care Provider Reason for Visit Procedure/Equipment (Routine) - Incomplete Specialty Diagnoses / Procedures Referred By Contact Refer red To Contact Diagnoses Left breast mass Madeleine Page, BELLY PACKER, ELECTRIC METER REPAIRER Procedures [facility] [place] [address] [place] [address] Referral ID Status Reason Start Date Expiration Date Visits V isits Requested Authorized [id number] Incomplete 05/23/2019 08/21/2020 1 1 Encounter Details Date Type Department Care Team Description 05/28/2019 Ancillary Procedure [facility] [address] , Left breast mass Mammography BELLY PACKER, ELECTRIC METER REPAIRER [address] [facility] [address] [place] [address] [phone] Social History Tobacco Use Types Packs/Day Years [...] Name Priority Date/Time Associated Diagnosis Comme nts [facility] US BREAST LT Routine 05/28/2019 3:07 PM Left breast mass R esults for this ANIMAL SITTER procedure are i n the results section. documented in this encounter Results (ABNORMAL) [facility] US Breast Lt (05/28/2019 3:07 PM ANIMAL SITTER) Anatomical Region Laterality Modality Breast Left Ultrasound Specimen (Source) Anatomical Collection Method Collection Time Re ceived Time Location / / Volume Laterality 05/28/2019 2:58 PM ANIMAL SITTER Impressions 05/28/2019 3:44 PM ANIMAL SITTER HISTORY: Left breast mass 12:00 p.m., 2 [...] is indeterminate. Ultrasound-guided biopsy is recommended. The [facility] will attempt to schedule the [...] is indeterminate. Ultrasound-guided biopsy is recommended. The [facility] [place] will attempt to schedule the recommended follow up with the patient. IMPRESSION: ACR BI-RADS CATEGORY 4: Susp icious. Madeleine Page BELLY PACKER, ELECTRIC METER REPAIRER RAD ERIC (ABNORMAL) [facility] Mammogram Diag Bilat W 3D Brodie (05/28/2019 2:16 PM ANIMAL SITTER) Anatomical Region Laterality Modality Breast Bilateral Mammography Specimen (Source) Anatomical Collection Method Collection Time Re ceived Time Location / / Volume Laterality 05/28/2019 2:15 PM ANIMAL SITTER Impressions 05/28/2019 3:44 PM ANIMAL SITTER HISTORY: Left breast mass 12:00 p.m., 2 [...] is indeterminate. Ultrasound-guided biopsy is recommended. The [facility] will attempt to schedule the [...] is indeterminate. Ultrasound-guided biopsy is recommended. The [facility] will attempt to schedule the recommended follow up with the patient. IMPRESSION: ACR BI-RADS CATEGORY 4: Susp icious. Madeleine Page BELLY PACKER, ELECTRIC METER REPAIRER RAD ERIC documented in this encounter Visit Diagnoses Diagnosis Left breast mass Lump or mass in breast Left breast mass Lump or mass in breast documented in this encounter Care Teams Lead Manufacturing Engineering Tech Relationship Specialty Start Date End Date Kristine Mendez MD PCP - General 01/01/14 [address] [place] [address] documented as of this encounter
--- OUTSIDE RECORDS SUMMARY | 2021-12-06 21:46 | XMS_ITS | Encounter Summary ---
:[address] [facility] Address [address] [place] [address] Care Team Providers Name Role Phone Kristine Mendez MD Primary Care Provider Reason for Visit Procedure/Equipment (Routine) - Incomplete Specialty Diagnoses / Procedures Referred By Contact Refer red To Contact Diagnoses Left breast mass Madeleine Page, CLINICAL DERMATOLOGIST, INSULATOR TECHNICIAN Procedures YMM Mammogram Diag Bilat W 3D Aurelia MM Mammogram Diag Bilat [address] [place] [address] Referral ID Status Reason Start Date Expiration Date Visits V isits Requested Authorized [id number] Incomplete 05/23/2019 08/21/2020 1 1 Encounter Details Date Type Department Care Team Description 05/28/2019 Ancillary Procedure [facility] [address] , Left breast mass Mammography CLINICAL DERMATOLOGIST, INSULATOR TECHNICIAN [address] [facility] [address] [place] [address] [phone] Social History Tobacco Use Types Packs/Day Years [...] Progress Notes Madeleine Page APRN, CNP - 05/28/2019 2:15 PM CST Diagnostic mammogram BI-RADS 4 for suspicious mass left breast 12 o'clock position. Patient is scheduled for an ultrasound-guided biopsy 06-03-2019. Sent message to [employer] OLOGY TECH documented in this encounter Plan of Treatment Not on filedocumented as of this encounter Procedures Procedure Name Priority Date/Time Associated Diagnosis Comme nts [facility] MAMMOGRAM DIAG Routine 05/28/2019 2:16 PM Left breast mass Results for this BILAT W 3D AURELIA HISTOLOGY TECH procedure ar e in the results section. documented in this encounter Results (ABNORMAL) [facility] US Breast Lt (05/28/2019 3:07 PM HISTOLOGY TECH) Anatomical Region Laterality Modality Breast Left Ultrasound Specimen (Source) Anatomical Collection Method Collection Time Re ceived Time Location / / Volume Laterality 05/28/2019 2:58 PM HISTOLOGY TECH Impressions 05/28/2019 3:44 PM HISTOLOGY TECH HISTORY: Left breast mass 12:00 p.m., 2 [...] is indeterminate. Ultrasound-guided biopsy is recommended. The [facility] will attempt to schedule the recommended follow [...] is indeterminate. Ultrasound-guided biopsy is recommended. The [facility] will attempt to schedule the recommended follow up with the patient. IMPRESSION: ACR BI-RADS CATEGORY 4: Susp icious. Madeleine Page CLINICAL DERMATOLOGIST, INSULATOR TECHNICIAN RAD ERIC (ABNORMAL) YMM Mammogram Diag Bilat W 3D Aurelia (05/28/2019 2:16 PM HISTOLOGY TECH) Anatomical Region Laterality Modality Breast Bilateral Mammography Specimen (Source) Anatomical Collection Method Collection Time Re ceived Time Location / / Volume Laterality 05/28/2019 2:15 PM HISTOLOGY TECH Impressions 05/28/2019 3:44 PM HISTOLOGY TECH HISTORY: Left breast mass 12:00 p.m., 2 [...] is indeterminate. Ultrasound-guided biopsy is recommended. The [facility] will attempt to schedule the recommended follow [...] is indeterminate. Ultrasound-guided biopsy is recommended. The [facility] will attempt to schedule the recommended follow up with the patient. IMPRESSION: ACR BI-RADS CATEGORY 4: Susp icious. Madeleine Page CLINICAL DERMATOLOGIST, INSULATOR TECHNICIAN RAD ERIC documented in this encounter Visit Diagnoses Diagnosis Left breast mass Lump or mass in breast Left breast mass Lump or mass in breast documented in this encounter Care Teams Dictating Machine Transcriber Relationship Specialty Start Date End Date Kristine Mendez MD PCP - General 01/01/14 [address] [place] [address] documented as of this encounter
--- OUTSIDE RECORDS SUMMARY | 2021-12-06 21:47 | XMS_ITS | Encounter Summary ---
:1985 Author Organization [facility] Address [address] [place] [address] Care Team Providers Name Role Phone Unavailable Primary Care Provider Unavailable Reason for Visit Reason Comments Refill Encounter Details Date Type Department Care Team Description 12/10/2011 Refill [place] [facility] Chanel Mix PA-C Refill [address] [facility] [place] [address] [place] [address] [phone] (Wo rk) Social History Tobacco Use Types Packs/Day Years Used Date Smoking Tobacco: Never Alcohol Use Standard Drinks/Week Comments No 0 (1 standard drink = 0.6 oz pure alcoho l) Sex Assigned at Date Recorded Not on file documented as of this encounter Nursing Notes Alona Machado RN - 12/11/2011 3:27 PM CDT Please advise on refill. Last qualifying visit with Chanel Herman PA-C 09/15/11. Last rx was writtenfor #84 and 0 refills. Does pt. need f/u? Please route to [facility] if pt. needs an appt. Thank you. Prescription Refills Pending Prescriptions Disp Refills ??? norgestimate-ethinyl estradiol (SPRINTEC, 28,) 0.25-35 mg-mcg per tablet [Pharmacy Med Name: SPRINTEC 28 28 DAY TAB WHITE] 84 tablet 2 Sig: Take 1 tablet by mouth daily (every 24 hours). documented in this encounter Plan of Treatment Not on filedocumented as of this encounter Visit Diagnoses Not on filedocumented in this encounter
--- OUTSIDE RECORDS SUMMARY | 2021-12-06 21:47 | XMS_ITS | Encounter Summary ---
:1985 Author Organization [employer] Address [address] [place] [address] Care Team Providers Name Role Phone Unavailable Primary Care Provider Unavailable Reason for Visit Reason Comments Nausea Abdominal Pain Encounter Details Date Type Department Care Team Description 06/26[facility]2012 [facility], [facility]TI (urinary tract infection ) (Primary Dx); [address] Erwin Akins PA-C Abdominal pain; NNEKA Reyes [id number] [address] Dunbar Nausea alone [phone] NNEKA REYES [id number] Social History Tobacco Use Types Packs/Day Years Used Date Smoking Tobacco: Never Alcohol Use Standard Drinks/Week Comments No 0 (1 standard drink = 0.6 oz pure alcoho l) Sex Assigned at Date Recorded Not on file documented as of this encounter Last Filed Vital Signs Vital Sign Reading Time Taken Comments Blood Pressure 124/86 06/26/2012 10:55 AM IT APPLICATION SUPPORT ANALYST Pulse 96 06/26/2012 10:55 AM IT APPLICATION SUPPORT ANALYST Temperature 36.6 ??C (97.9 ??F) 06/26/2012 10:55 AM IT APPLICATION SUPPORT ANALYST Respiratory Rate - - Oxygen Saturation - - Inhaled Oxygen Concentration - - Weight 55.8 kg (123 lb) 06/26/2012 10:55 AM IT APPLICATION SUPPORT ANALYST Height - - Body Mass Index 18.03 09/15/2011 1:05 PM CDT documented in this encounter Progress Notes Rico Hester PA-C - 06/26/2012 12:11 PM CST Chief Complaint Patient presents with ??? Nausea ??? Abdominal Pain (STOMACH ACHE) SUBJECTIVE : Yamilet Lora is an 27 y.o. female who presents for evaluation of UTI (urinary tract infection) - Rico Hester PA-C 06/26/12 12:06 PM Signed 18-year-old female patient presents with four-day history lower abdominal pain which radiates to thesides superiorly for the past 4 days. This has been associated with nausea without vomiting. She is stooling normally, having a bowel movement this morning. Which she describes as slightly loose but not diarrhea. Her last menstrual period ended yesterday and she describes it as normal with a duration of 6 days which is normal for her. She is in a monogamous relationship with her . This is the only sexual partner she has ever had. She has not had Pap smear screening at this point as she has the sexually active until recently. She has no history of gallbladder disease, no diabetes since and cash nondrinker and uses no illicit chemicals. The only medication she takes is control. She has had no fevers and denies flank pain. . Past medical, family, social history, allergies, immunization have been review and marked in epic today. REVIEW OF SYSTEMS : other than stated above, complete review of systems are negative. BP 124/86 Pulse 96 Temp(Src) 97.8 ??F (36.6 ??C) (Oral) Wt 123 lb (55.792 kg) OBJECTIVE : Gen.: Alert, cooperative in no acute distress. Head: Normocephalic. Eyes: PERRLA, full EOM. Anicteric. Throat: Moist mucous membranes without lesions, erythema, or exudate. Respiratory: Normal respiratory effort. Lungs are clear to auscultation and percussion with good breath sounds bilaterally. Heart: RR without murmurs, rubs, or gallops. Abdomen: The abdomen was soft r, normal sounds present. No obvious masses or organomegaly. Mild suprapubic tenderness. No CVA tenderness Extremities: No cyanosis clubbing or edema. Neurologic: Alert, oriented x3, nonfocal. UPT: Negative UA: Small blood, moderate leukocyte esterase, otherwise normal. Microscopic Urine WBC 10-24 (A) 0-4 /HPF Fin Urine RBC 3-4 (A) 0-2 /HPF Fin Bacteria Urine Few (A) /HPF Fin ASSESSMENT/PLAN : 1. UTI (urinary tract infection) (599.0C) sulfamethoxazole-trimethoprim (BACTRIM DS, SEPTRA DS) 800-160 mg per tablet 2. Abdominal pain (789.00AP) UA with Hold for Culture (CLINIC), Test Screen Urine, Sexually Transmitted Disease Probe URINE (incl. GC and Chlamydia) 3. Nausea alone (787.02) ondansetron (ZOFRAN) 4 mg tablet 27-year-old female with likely urinary tract infection. This is the first one she has ever had. The patient that these are usually related to fecal contamination and sexual intercourse. Good hygiene before and after sexual intercourse including urinating after sexual intercourse. Reinforced the importa nce of wiping from front to back. Will treat with a five-day course of Bactrim b.i.d. Culture pending. Also GC and Chlamydia is pending at the time of this writing. Prescription is written for Zofran today. The patient may or may not fill this depending on whether her nausea feelings continue after starting the antibiotic. All questions are answered the patient is amenable with this plan Orders Placed This Encounter Medication ??? ondansetron (ZOFRAN) 4 mg tablet Sig: Take 1 tablet by mouth every 8 hours as needed for Nausea and Vomiting. Dispense: 30 tablet Refill: 0 ??? sulfamethoxazole-trimethoprim (BACTRIM DS, SEPTRA DS) 800-160 mg per tablet Sig: Take 1 tablet by mouth 2 times daily for 5 days. Dispense: 10 tablet Refill: 0 Orders Placed This Encounter Procedure ??? Sexually Transmitted Disease Probe URINE (incl. GC and Chlamydia) ??? UA with Hold for Culture (CLINIC) ??? Test Screen Urine Follow up recommendations: P.r.n. I will call the patient if urine culture results demonstrated resistance to Bactrim. The patient was discharged ambulatory in stable condition. documented in this encounter Miscellaneous Notes Assessment & Plan Note - Rico Hester PA-C - 06/26/2012 12:06 PM IT APPLICATION SUPPORT ANALYST 18-year-old female patient presents with four-day history lower abdominal pain which radiates to thesides superiorly for the past 4 days. This has been associated with nausea without vomiting. She is stooling normally, having a bowel movement this morning. Which she describes as slightly loose but not diarrhea. Her last menstrual period ended yesterday and she describes it as normal with a duration of 6 days which is normal for her. She is in a monogamous relationship with her . This is the only sexual partner she has ever had. She has not had Pap smear screening at this point as she has the sexually active until recently. She has no history of gallbladder disease, no diabetes since and cash nondrinker and uses no illicit chemicals. The only medication she takes is control. She has had no fevers and denies flank pain. documented in this encounter Plan of Treatment Not on filedocumented as of this encounter Visit Diagnoses Diagnosis UTI (urinary tract infection) - Primary Urinary tract infection, site not specif ied Abdominal pain Nausea alone documented in this encounter
--- OUTSIDE RECORDS SUMMARY | 2021-12-06 21:47 | XMS_ITS | Encounter Summary ---
:1985 Author Organization [employer] Address [address] [place] [address] Care Team Providers Name Role Phone Jeri García MD Primary Care Provider Encounter Details Date Type Department Care Team Description 01/08/2003 PN Conversion Only OZZIE CONVERSION Jeri García, [address] [place] [address] [address] [place] [address] (Wo rk) Social History Tobacco Use Types Packs/Day Years Used Date Smoking Tobacco: Never Assessed Sex Assigned at Date Recorded Not on file documented as of this encounter Plan of Treatment Not on filedocumented as of this encounter Procedures Procedure Name Priority Date/Time Associated Comments Diagnosis URINE CULTURE Routine 01/08/2003 2:12 PM Results for this CDT procedure are i n the results section. URINALYSIS COMPLETE Routine 01/08/2003 1:59 PM Re sults for this CDT procedure are i n the results section. documented in this encounter Results Urine Culture (01/08/2003 2:12 PM CDT) Analysis Performed At Patho logist Time Signature Urine Culture SEE TEXT HP CONVERSION Comment: Patient: YAMILET DAILY Culture, Urine @ ?Collected: ??[id number] ??[id number] Source: Clean Ca ?Processed: ??[id number] ??1412 ? G SENS Final Report ------ ?[id number] ??[id number] No growth @ = URINE CULTURE Performed at ??[address] [place], [place] ?[address] Specimen (Source) Anatomical Collection Method Collection Time Re ceived Time Location / / Volume Laterality 01/08/2003 2:12 PM CDT Jeri García MD LAB_1 Performing Organization Address City/State/ZIP Code Phon e Number HP CONVERSION (ABNORMAL) Urinalysis Complete (01/08/2003 1:59 PM CDT) [facility] gist Method Time Signature Glucose, Negative Neg-Trac HP CONVERSION Qualitative U Protein Urine Negative Neg-Trac HP CONVERSION Ketones Negative Negative HP CONVERSION U BILI Negative Negative HP CONVERSION U Specific <=1.005 1.005 - 25 HP CONVERSION [place] Blood Urine Moderate Negative HP CONVERSION (A) pH Urine 5.5 4.5 - 7.5 HP CONVERSION Urobilinogen Negative 0.2 - 1.0 HP CONVERSION Urine Nitrite Urine Negative Negative HP CONVERSION Leukocyte Trace (A) Negative HP CONVERSION Esterase Urine White Blood 5-9/HPF (A) 0 - 3 HP CONVERSION Cells Urine Red Blood Cells 0-2/HPF 0 - 2 HP CONVERSION Urine Bacteria Urine Few (A) None HP CONVERSION Epithelial Cells Moderate Few /HPF HP CONVERSION Specimen (Source) Anatomical Collection Method Collection Time Re ceived Time Location / / Volume Laterality 01/08/2003 1:59 PM CDT Jeri García MD LAB_1 Performing Organization Address City/State/ZIP Code Phon e Number HP CONVERSION documented in this encounter Visit Diagnoses Not on filedocumented in this encounter Care Teams Field Secretary Relationship Specialty Start Date End Date Jeri García MD PCP - General 08/02/10 09/06/11 [address] [place], [place] [id number] documented as of this encounter
--- OUTSIDE RECORDS SUMMARY | 2021-12-06 21:47 | XMS_ITS | Encounter Summary ---
:1985 Author Organization [employer] Address [address] [place] [address] Care Team Providers Name Role Phone Unavailable Primary Care Provider Unavailable Reason for Visit Reason Comments Patient Calling Back Encounter Details Date Type Department Care Team Description 10/02/2011 Telephone [facility] Medicin e Chanel Herman, Patient Calling Back [address] [place], [place] [id number] [address] [facility] [phone] [place], [place] [address] (Wo rk) Social History Tobacco Use Types Packs/Day Years Used Date Smoking Tobacco: Never Alcohol Use Standard Drinks/Week Comments No 0 (1 standard drink = 0.6 oz pure alcoho l) Sex Assigned at Date Recorded Not on file documented as of this encounter Nursing Notes Chanel Herman PA-C - 10/04/2011 3:51 PM CDT agree Jeri Alexandre LPN - 10/04/2011 8:47 AM CDT LM at [phone] that if pt is having sx of pain or concerns about clots and wants to change pills, she should make an appt. as soon as she can. Kiley Mccullough RN - 10/03/2011 3:24 PM CDT Pt was wondering if there is another type of control pill that has lower estrogen. Instead of the control that she is on right now. She is on Sprintec at the present time. Pt has been having a little bit of pain in the right leg above the knee and the thigh area. Pt is having some spider like veins on her right upper leg above the knee. The size of her hand. Pt would like a recommendation for another type of control pill that can be used. Please call Yamilet at [phone] for advise and recommendation. Okay to leave a message. Avani Yeager - 10/02/2011 5:21 PM CDT Patient called back for nurse missed earlier call - call in am. Anahi Castro LPN - 10/02/2011 4:54 PM CDT Message left for pt to call back for below info. Chanel Herman PA-C - 10/02/2011 4:52 PM CDT If she is having pain or concerns about a clot, then appt is necessary. If not then continue and give it more time. Angeles Dahl - 10/02/2011 11:29 AM CDT Talked to Yamilet and was started on control 2 weeks ago.. She started with pain in her legs but that is better and now it is just a dull ache. She had only taken control for acne in high school and had no side effects. Now she is noticing spider veins appearing close to the surface of her legs. She wonders if she should change the medication or see what you recommended. She uses [facility] on [address]. Please let her know on her cell phone at [phone].. Kiley Ndiaye - 10/02/2011 11:15 AM CDT t calling to speak to nurse about possible reaction ( pain in legs) to control medication. documented in this encounter Plan of Treatment Not on filedocumented as of this encounter Visit Diagnoses Not on filedocumented in this encounter
--- OUTSIDE RECORDS SUMMARY | 2021-12-06 21:47 | XMS_ITS | Encounter Summary ---
:1985 Author Organization [facility] Address [address] [place] [address] Care Team Providers Name Role Phone Jeri García MD Primary Care Provider Encounter Details Date Type Department Care Team Description 06/23/2005 Office Visit [facility] [address] Twila Collier MD Dermatology [address] [facility] [address] [facility] [place] [address] [employer] [place] [place], [place] [address] [phone] Social History Tobacco Use Types Packs/Day Years Used Date Smoking Tobacco: Never Assessed Sex Assigned at Date Recorded Not on file documented as of this encounter Progress Notes Twila Collier MD - 06/23/2005 12:01 AM CST Progress Notes signed by Twila Collier MD at 06/23/05 1522 Author: Twila Collier MD Service: (none) Author Type: Physician Filed: 08/19/10 1140 Note Time: 06/23/05 0001 Status: Signed Staff Consultant: Twila Collier MD (Physician) NAME: YAMILET DAILY MR: [id number] ACCT: [id number] VISIT: [id number] DICTATING CLINICIAN: TWILA COLLIER MD JOB: [id number] CLINIC PROGRESS NOTE DATE OF VISIT: 06/23/2005 SUBJECTIVE: Aupbka-csm-kgzp-old female presents in followup for acne. I last saw her 04/19/05 which was her first visit. She has a long history of acne throughout her teenage years and has been getting worse. She had been on minocycline but got hyperpigmentation, then doxycycline which did not help. Has also used Retin-A Micro and Ortho Tri-Cyclen also not very helpful. She is not currently sexually active and has no plans to get in the near future. We had at last visit two months ago started her on spironolactone 50 mg daily. She is not having any urinary frequency or lightheadedness. She is having some spotting but not enough that it is a problem to her. We had also started BenzaClin at bedtime but she says this dries out her face a lot so she is not able to use a lot. Using moisturizer as well as Cetaphil face cleanser. MEDICATIONS: Spironolactone. ADR/ALLERGIES: NO KNOWN DRUG ALLERGIES. Please note 15 minutes were spent with patient, over 10 minutes was spent counseling on acne and medications for it. OBJECTIVE: Well-nourished, well-developed, female, Fuentes skin type III. Alert and oriented in no acute distress. Face: Inflammatory papules over the forehead, nose, cheeks, and chin as well as inferior chin and the upper portion of the neck. Lower neck, chest, arms, and back are examined and are clear today. Patient does have a lot of violaceous deep red nodules on the cheeks. No cysts or scarring. ASSESSMENT: Acne, inflammatory and moderate severity but localized to the face. PLAN: 1. Continue spironolactone 50 mg p.o. q.a.m. Potassium was fine at last check and she is not having any other abnormal side effects. 2. Discontinue BenzaClin. Samples of Differin 0.1% cream as well as prescription for this given to use once daily. 3. Add in amoxicillin 250 mg p.o. b.i.d. I know patient had not wanted to be on oral antibiotics but she needs something to try to get the acne under better control. 4. We also discussed possibly doing Accutane down the road. IPLEDGE patient introductory brochure given to patient for her review. Patient is to follow up with me in two months. RSH:[id number] C: 06/23/05 12:15 DOCUMENT: [id number] NT CARE COORDINATOR documented in this encounter Plan of Treatment Not on filedocumented as of this encounter Visit Diagnoses Not on filedocumented in this encounter Care Teams Stonework Supervisor Relationship Specialty Start Date End Date Jeri García MD PCP - General 08/02/10 09/06/11 [address] [place] [address] documented as of this encounter
--- OUTSIDE RECORDS SUMMARY | 2021-12-06 21:47 | XMS_ITS | Encounter Summary ---
:1985 Author Organization [facility] Address [address] [place] [address] Care Team Providers Name Role Phone Jeri García MD Primary Care Provider Encounter Details Date Type Department Care Team Description 08/26/2003 PN Conversion Only [place] [facility] Mikala Del Valle, [address] [facility] [place] [address] [phone] [place], [place] [address] (Wo rk) Social History Tobacco Use Types Packs/Day Years Used Date Smoking Tobacco: Never Assessed Sex Assigned at Date Recorded Not on file documented as of this encounter Progress Notes Mikala Del Valle PA-C - 08/26/2003 12:01 AM CDT Progress Notes signed by Mikala Del Valle PA-C at 01/25/04 1637 Author: Mikala Kumari PA-C Service: (none) Author Type: Physician Lumber Stacker Driver Filed: 08/18/10 8028 Note Time: 08/26/03 0001 Status: Signed Associate Director Of Sales: Mikala Kumari PA-C (Physician Lumber Stacker Driver) NAME: YAMILET DAILY MR: [id number] ACCT: [id number] VISIT: [id number] DICTATING CLINICIAN: ROCIO DRIVER JOB: [id number] CLINIC PROGRESS NOTE DATE OF VISIT: 08/26/2003 ASSESSMENT: Acne. PLAN: Will have her continue washing with a gentle moisturizing cleanser. Daily use of a moisturizer was encouraged as well. I did give her Retin A 0.04% Micro Gel to be applied q.h.s. to the affected areas. In the mornings, I will give her the spot treatment Benzamycin to be used just in the areas that are needed. She was warned of each side effect profile. I will ask her to return in two months for a recheck, sooner if needed. FINAL IMPRESSION: Acne. SUBJECTIVE: Yamilet is a 18-year-old female in today concerned with acne. Most of the time, the acne lesions are present on her face. Sometimes extend onto her neck, but states she does not have any problems on her chest or back. She has tried various arhk-bhh-ojbggdm products. Does seem to get irritated with some of the more drying formulations and tends to use gentle cleansers and moisturizers on a regular basis. PAST MEDICAL HISTORY: Acne. CURRENT MEDICATIONS: None. ADR/ALLERGIES: NONE. OBJECTIVE: This is a 18-year-old female in no acute distress. She is WH, WN. Skin is warm and dry. Examination of the skin surfaces reveals inflammatory papules and pustules present on the T-zone of her face. She does get some extension onto the cheeks bilaterally. Open comedonal acne is intermixed with these lesions. Some mild scarring present on the cheeks bilaterally. She does have very sparsely scattered lesions on her neck, consistent with inflammatory papules. No involvement of her chest, back or shoulders. [id number] C: 08/26/03 19:06 DOCUMENT: [id number] documented in this encounter Plan of Treatment Not on filedocumented as of this encounter Visit Diagnoses Not on filedocumented in this encounter Care Teams Pet Caregiver Relationship Specialty Start Date End Date Jeri García MD PCP - General 08/02/10 09/06/11 [address] [place], [place] [id number] documented as of this encounter
--- OUTSIDE RECORDS SUMMARY | 2021-12-06 21:47 | XMS_ITS | Encounter Summary ---
:1985 [facility] Address [address] [place] [address] Care Team Providers Name Role Phone Unavailable Primary Care Provider Unavailable Encounter Details Date Type Department Care Team Description 06/26/2012 Lab Visit [facility] Abdominal pain [address] [place] [id number] Social History Tobacco Use Types Packs/Day Years Used Date Smoking Tobacco: Never Alcohol Use Standard Drinks/Week Comments No 0 (1 standard drink = 0.6 oz pure alcoho l) Sex Assigned at Date Recorded Not on file documented as of this encounter Plan of Treatment Not on filedocumented as of this encounter Procedures Procedure Name Priority Date/Time Associated Comments Diagnosis URINE MICROSCOPIC Routine 06/26/2012 11:33 Result s for this AM ELECTRICAL ENGINEERING TECHNICIAN procedure are i n the results section. URINALYSIS ROUTINE, Routine 06/26/2012 11:33 Abdominal pain Re sults for this MICRO/CULTURE IF POS AM ELECTRICAL ENGINEERING TECHNICIAN procedu re are in the results section. SEXUALLY TRANSMITTED Routine 06/26/2012 11:33 Abdominal pain R esults for this DISEASE PROBE AM ELECTRICAL ENGINEERING TECHNICIAN procedure are in the results section. URINE CULTURE Routine 06/26/2012 11:33 Results fo r this AM ELECTRICAL ENGINEERING TECHNICIAN procedure are i n the results section. TEST Routine 06/26/2012 11:33 Abdominal pain Results for this (URINE) AM ELECTRICAL ENGINEERING TECHNICIAN procedure are i n the results section. documented in this encounter Results Sexually Transmitted Disease Probe (06/26/2012 11:33 AM ELECTRICAL ENGINEERING TECHNICIAN) Component Value Ref Test Analysis Performed At [facility] Range Method Time Signature Chlamydia Chlamydia HP CONVERSION Trach DNA trachomatis NEGATIVE by DNA amplification GC DNA Neisseria HP CONVERSION gonorrhea NEGATIVE by DNA amplification. Specimen (Source) Anatomical Collection Method Collection Time Re ceived Time Location / / Volume Laterality Urine for 06/26/2012 11:33 molecular AM ELECTRICAL ENGINEERING TECHNICIAN testing: Rico Hester PA-C LAB_1 Performing Organization Address [facility] Phon e Number HP CONVERSION Urine Culture (06/26/2012 11:33 AM ELECTRICAL ENGINEERING TECHNICIAN) Patholo gist Method Time Signature Urine Culture Mixed gram HP CONVERSION positive & negative organisms. <10,000 cfu/mL Specimen (Source) Anatomical Collection Method Collection Time Re ceived Time Location / / Volume Laterality Urine: 06/26/2012 11:33 AM ELECTRICAL ENGINEERING TECHNICIAN Rico Hester PA-C LAB_1 Performing Organization Address [facility] Code Phon e Number HP CONVERSION (ABNORMAL) URINE MICROSCOPIC (06/26/2012 11:33 AM ELECTRICAL ENGINEERING TECHNICIAN) Patholo gist Method Time Signature Urine WBC 10-24 (A) 0 - 4 /HPF HP CONVERSION Urine RBC 3-4 (A) 0 - 2 /HPF HP CONVERSION Bacteria Urine Few (A) /HPF HP CONVERSION Comment: Urine culture has been orde red per reflex protocol. Epithelial Cells Few /HPF HP CONVERSION Specimen Anatomical Collection Method Collection Time Receive d Time (Source) Location / / Volume Laterality 06/26/2012 11:33 06/26/2012 AM ELECTRICAL ENGINEERING TECHNICIAN 11:33 AM ELECTRICAL ENGINEERING TECHNICIAN Narrative HP CONVERSION - 06/26/2012 11:49 AM ELECTRICAL ENGINEERING TECHNICIAN [place] [address] Rico Hester PA-C LAB_1 Performing Organization Address [facility] Phon e Number HP CONVERSION Test (Urine) (06/26/2012 11:33 AM ELECTRICAL ENGINEERING TECHNICIAN) Analysis Performed At Patho logist Time Signature Urine Negative HP CONVERSION Test Specimen Anatomical Collection Method Collection Time Receive d Time (Source) Location / / Volume Laterality 06/26/2012 11:33 06/26/2012 AM ELECTRICAL ENGINEERING TECHNICIAN 11:33 AM ELECTRICAL ENGINEERING TECHNICIAN Narrative HP CONVERSION - 06/26/2012 11:42 AM ELECTRICAL ENGINEERING TECHNICIAN Performed at [place] [id number] Rico J Kacie PA-C LAB_1 Performing Organization Address City/[facility]/ZIP Code Phon e Number HP CONVERSION (ABNORMAL) URINALYSIS ROUTINE, MICRO/CULTURE IF POS (06/26/2012 11:33 AM ELECTRICAL ENGINEERING TECHNICIAN) [facility] Method Time Signature Urine Type Urine:clean HP CONVERSION cat Turbidity Clear Clear HP CONVERSION U BILI Negative Negative HP CONVERSION Blood Urine Small (A) Negative HP CONVERSION Glucose, Negative Neg-30 HP CONVERSION Qualitative U mg/dL Ketones Negative Negative HP CONVERSION Leukocyte Moderate Negative HP CONVERSION Esterase Urine (A) Nitrite Urine Negative Negative HP CONVERSION pH Urine 5.5 5.0 - 8.0 HP CONVERSION Protein Urine Negative Neg - Trace HP CONVERSION mg/dL U Specific <=1.005 1.005 - HP CONVERSION [place] 1.030 Urobilinogen Negative Negative HP CONVERSION Urine Eu/dL Specimen Anatomical Collection Method Collection Time Receive d Time (Source) Location / / Volume Laterality Urine: 06/26/2012 11:33 06/26/2012 AM ELECTRICAL ENGINEERING TECHNICIAN 11:33 AM ELECTRICAL ENGINEERING TECHNICIAN Narrative HP CONVERSION - 06/26/2012 11:49 AM ELECTRICAL ENGINEERING TECHNICIAN Performed at [facility], [address] [place] [address] Rico Hester PA-C LAB_1 Performing Organization Address City/[facility] Code Phon e Number HP CONVERSION documented in this encounter Visit Diagnoses Diagnosis Abdominal pain documented in this encounter
--- OUTSIDE RECORDS SUMMARY | 2021-12-06 21:47 | XMS_ITS | Encounter Summary ---
:1985 Author Organization [facility] Address [address] [place] [address] Care Team Providers Name Role Phone Jeri García MD Primary Care Provider Encounter Details Date Type Department Care Team Description 05/23/2004 PN Conversion Only OZZIE CONVERSION Jeri García, [address] [place] [address] [address] [place], [place] [id number] (Wo rk) Social History Tobacco Use Types Packs/Day Years Used Date Smoking Tobacco: Never Assessed Sex Assigned at Date Recorded Not on file documented as of this encounter Plan of Treatment Not on filedocumented as of this encounter Procedures Procedure Name Priority Date/Time Associated Comments Diagnosis DEHYDROEPIANDROSTERONE Routine 05/23/2004 11:37 R esults for AM RAG ROOM SUPERVISOR this procedure are in the results section. TESTOSTERONE TOTAL ADULT Routine 05/23/2004 11:37 Results for MALES AM RAG ROOM SUPERVISOR this procedure are in the results section. GLUCOSE Routine 05/23/2004 11:37 Results for AM RAG ROOM SUPERVISOR this procedure are in the results section. THYROID STIMULATING HORMONE Routine 05/23/2004 11:37 Results for AM RAG ROOM SUPERVISOR this procedure are in the results section. LH Routine 05/23/2004 11:37 Results for AM RAG ROOM SUPERVISOR this procedure are in the results section. FSH Routine 05/23/2004 11:37 Results for AM RAG ROOM SUPERVISOR this procedure are in the results section. documented in this encounter Results Glucose (05/23/2004 11:37 AM RAG ROOM SUPERVISOR) P athologist Signature Lab Glucose 89 60 - 100 HP CONVERSION mg/dL Specimen (Source) Anatomical Collection Method Collection Time Re ceived Time Location / / Volume Laterality 05/23/2004 11:37 AM RAG ROOM SUPERVISOR Jeri García MD LAB_1 Performing Organization Address City/State/ZIP Code Phon e Number HP CONVERSION Testosterone, Total Adult Males (05/23/2004 11:37 AM RAG ROOM SUPERVISOR) Analysis Performed At Patho logist Time Signature Testosterone 62 10 - 75 HP CONVERSION Level ng/dL Specimen (Source) Anatomical Collection Method Collection Time Re ceived Time Location / / Volume Laterality 05/23/2004 11:37 AM RAG ROOM SUPERVISOR Jeri García MD LAB_1 Performing Organization Address City/[facility]/ZIP Code Phon e Number HP CONVERSION Thyroid Stimulating Hormone (05/23/2004 11:37 AM RAG ROOM SUPERVISOR) athologist Signature Thyroid 1.48 0.20 - HP CONVERSION Stimulating 5.50 Hormone uIU/mL Specimen (Source) Anatomical Collection Method Collection Time Re ceived Time Location / / Volume Laterality 05/23/2004 11:37 AM RAG ROOM SUPERVISOR Jeri García MD LAB_1 Performing Organization Address City/[facility]/ZIP Code Phon e Number HP CONVERSION Dehydroepiandrosterone (05/23/2004 11:37 AM RAG ROOM SUPERVISOR) Patholo gist Method Time Signature Dehydroepiandrosterone 5.4 1.9 - 7.6 HP CONV ERSION ng/mL Specimen (Source) Anatomical Collection Method Collection Time Re ceived Time Location / / Volume Laterality 05/23/2004 11:37 AM RAG ROOM SUPERVISOR Jeri García MD LAB_1 Performing Organization Address City/[facility]/ZIP Code Phon e Number HP CONVERSION LH (05/23/2004 11:37 AM RAG ROOM SUPERVISOR) P athologist Signature Lh 25 mIU/mL HP CONVERSION Comment: ?LH Value (mIU/mL) Female: ? Range Normally Ovulating Females -Follicular Phase ? 2-13 -Mid-Cycle Peak ? 9- -Luteal Phase ? 0.5-17 Postmenopausal Females ? 5-52 Specimen (Source) Anatomical Collection Method Collection Time Re ceived Time Location / / Volume Laterality 05/23/2004 11:37 AM RAG ROOM SUPERVISOR Jeri García MD LAB_1 Performing Organization Address City/State/ZIP Code Phon e Number HP CONVERSION FSH (05/23/2004 11:37 AM RAG ROOM SUPERVISOR) P athologist Signature Follicle 5.1 mIU/mL HP CONVERSION Stimulating Hormone Comment: ? FSH Value(mIU/mL) Normally Menstruating Females ?Range -Follicular Phase ?3.6 - 16.0 -Mid-Cycle Peak ?3.4 - 33.0 -Luteal Phase ?1.5 - 9.1 Postmenopausal Females ?22.9 - 167 Specimen (Source) Anatomical Collection Method Collection Time Re ceived Time Location / / Volume Laterality 05/23/2004 11:37 AM RAG ROOM SUPERVISOR Jeri García MD LAB_1 Performing Organization Address City/State/ZIP Code Phon e Number HP CONVERSION documented in this encounter Visit Diagnoses Not on filedocumented in this encounter Care Teams Contract Runner Relationship Specialty Start Date End Date Jeri García MD PCP - General 08/02/10 09/06/11 [address] [place], [place] [address] documented as of this encounter
--- OUTSIDE RECORDS SUMMARY | 2021-12-06 21:47 | XMS_ITS | Encounter Summary ---
:1985 Author Organization [facility] [facility] Address [address] [place] [address] Care Team Providers Name Role Phone Unavailable Primary Care Provider Unavailable Reason for Visit Reason Comments LEG PAIN Encounter Details Date Type Department Care Team Description 09/22/2011 Telephone [facility] Chanel Herman PA-C LEG PAIN [address] [place] [address] [place] [address] [phone] (Wo rk) Social History Tobacco Use Types Packs/Day Years Used Date Smoking Tobacco: Never Alcohol Use Standard Drinks/Week Comments No 0 (1 standard drink = 0.6 oz pure alcoho l) Sex Assigned at Date Recorded Not on file documented as of this encounter Nursing Notes Corry Murillo LPN - 09/22/2011 4:00 PM CDT Informed pt on vm. Chanel Herman PA-C - 09/22/2011 3:55 PM CDT If she develops redness, swelling, pain while squeezing the calf would recommend appt, otherwise observe. Madeleine Soliz RN - 09/22/2011 2:24 PM CDT Pt started her Sprintec 28 last week. She states she was told to call Chanel if she experienced any pain in her legs. Pt states she has been experiencing random pains in both legs. Comes and goes. No swelling. Kaylyn Molina - 09/22/2011 2:13 PM CDT Pt. states she is having leg pain/swelling, for the last few days. Pt would like to speak with nurseto see if this is related to control she began 09/15/11. Transferred to triage. documented in this encounter Plan of Treatment Not on filedocumented as of this encounter Visit Diagnoses Not on filedocumented in this encounter
--- OUTSIDE RECORDS SUMMARY | 2021-12-06 21:47 | XMS_ITS | Encounter Summary ---
:1985 Author Organization [facility] Address [address] [place] [address] Care Team Providers Name Role Phone Jeri García MD Primary Care Provider Reason for Visit Reason Comments Other Encounter Details Date Type Department Care Team Description 03/01/2005 Telephone [facility], Message Other [address] [place] [address] Social History Tobacco Use Types Packs/Day Years Used Date Smoking Tobacco: Never Assessed Sex Assigned at Date Recorded Not on file documented as of this encounter [facility], Message - 03/01/2005 3:45 PM CST Phone Note filed by [employer] at 08/15/102200 Author: [employer] Service: (none) Author Type: (none) Filed: 08/15/102200 Note Time: 03/01/051544 Status: Signed Traveler Changer: [employer] MESSAGE TO CARE TEAM NAME OF CALLER: anika Yamilet Goldman NAME OF CLINICIAN: Dr García MESSAGE: Pt is calling for a referral to dermatology. Pt is requesting a call-back either way to let her know if this can be done. CALL BACK PHONE #: [phone], cell BEST TIME TO CALL BACK: anytime Is it OK to leave detailed message on voicemail? yes Created on [id number] 3:45pm by PAULA VILLALTA On [id number] 4:09pm XAVIER HASKINS wrote: Referral for what condition? Acknowledged by XAVIER HASKINS on 2Nov 4:09pm On [id number] 4:17pm APRIL HOLLIDAY wrote: Pt would like to see Dermatology regarding ongoing acne. On [id number] 4:37pm XAVIER HASKINS wrote: OK to see [facility] for acne Acknowledged by XAVIER HASKINS on 2Nov05 4:37pm On [id number] 4:46pm RADHA PIRES wrote: Pt notified and will make appointment with derm. COURSE ARCHITECT documented in this encounter Plan of Treatment Not on filedocumented as of this encounter Visit Diagnoses Not on filedocumented in this encounter Care Teams Train Caller Relationship Specialty Start Date End Date Jeri García MD PCP - General 08/02/10 09/06/[address] [place] [address] documented as of this encounter
--- OUTSIDE RECORDS SUMMARY | 2021-12-06 21:47 | XMS_ITS | Encounter Summary ---
:1985 Author Organization [facility] Address [address] [place] [address] Care Team Providers Name Role Phone Megan García MD Primary Care Provider Reason for Visit Reason Comments Other Encounter Details Date Type Department Care Team Description 06/08/2004 Telephone [facility], Message Other [address] [address] Social History Tobacco Use Types Packs/Day Years Used Date Smoking Tobacco: Never Assessed Sex Assigned at Date Recorded Not on file documented as of this encounter [facility] Khushi Gibson - 06/08/2004 11:47 AM CST Phone Note filed by Khushi Gibson RN at 08/15/10 2435 Author: Khushi Gibson RN Service: (none) Author Type: (none) Filed: 08/15/10 0168 Note Time: 06/08/04 1147 Status: Signed Rod Cup Filler: Khushi Gibson RN (Registered Nurse) Pt saw Dr García on 05-23-04. She has had acne and a bc pill, Alesse, was given to help with the acne. Pt says her face erupted over night and is much worse now. She looked on the internet and Alesse was not rated very high in helping with acne due to it's high androgen which causes acne. per patient. She wanted to try something else. Pharmacy is [phone]. She gets one month at a time. Pt is at [phone] and you can LM. Created on 08Jun2004 11:47am by KHUSHI GIBSON On 08Jun2004 12:23pm MEGAN GARCÍA wrote: we can try zovia 1 tab daily #84, 3 refills Acknowledged by MEGAN GARCÍA on 12:23pm On 08Jun2004 1:32pm EV HYDE wrote: LM script called. documented in this encounter Plan of Treatment Not on filedocumented as of this encounter Visit Diagnoses Not on filedocumented in this encounter Care Teams Hose Stripper Relationship Specialty Start Date End Date Megan García MD PCP - General 08/02/10 09/06/[address] [place] [address] documented as of this encounter
--- OUTSIDE RECORDS SUMMARY | 2021-12-06 21:47 | XMS_ITS | Encounter Summary ---
:1985 Author Organization [facility] Address [address] [place] [address] Care Team Providers Name Role Phone Jeri García MD Primary Care Provider Encounter Details Date Type Department Care Team Description 05/10/2005 PN Conversion Only OZZIE Mariano Lennon PA-C [address] [place] [address] [place] [address] (Wo rk) Social History Tobacco Use Types Packs/Day Years Used Date Smoking Tobacco: Never Assessed Sex Assigned at Date Recorded Not on file documented as of this encounter Plan of Treatment Not on filedocumented as of this encounter Procedures Procedure Name Priority Date/Time Associated Diagnosis Comme nts POTASSIUM Routine 05/10/2005 3:25 PM Results f or this REFINERY OPERATOR POLYMERIZATION PLANT procedure are i n the results section . documented in this encounter Results Potassium (05/10/2005 3:25 PM REFINERY OPERATOR POLYMERIZATION PLANT) P athologist Signature Potassium 4.0 3.5 - 5.2 HP CONVERSION meq/L Specimen (Source) Anatomical Collection Method Collection Time Re ceived Time Location / / Volume Laterality 05/10/2005 3:25 PM REFINERY OPERATOR POLYMERIZATION PLANT Mariano Braun PA-C LAB_1 Performing Organization Address City/State/ZIP Code Phon e Number HP CONVERSION documented in this encounter Visit Diagnoses Not on filedocumented in this encounter Care Teams Irrigation Equipment Mechanic Relationship Specialty Start Date End Date Jeri García MD PCP - General 08/02/10 09/06/11 [address] [place] [address] documented as of this encounter
--- OUTSIDE RECORDS SUMMARY | 2021-12-06 21:47 | XMS_ITS | Encounter Summary ---
:1985 Author Organization [facility] Address [address] [place] [address] Care Team Providers Name Role Phone Unavailable Primary Care Provider Unavailable Reason for Visit Reason Comments Annual Exam Encounter Details Date Type Department Care Team Description 09/15/2011 Office Visit [facility] M, Well adult exam (Primary Dx) ; [address] PA-C Need for hepatitis B vaccination; NNEKA Reyes [phone] Breast lump on left side at 1 o'clock position [phone] [place], [place] [address] (Wo rk) Social History Tobacco Use Types Packs/Day Years Used Date Smoking Tobacco: Never Alcohol Use Standard Drinks/Week Comments No 0 (1 standard drink = 0.6 oz pure alcoho l) Sex Assigned at Date Recorded Not on file documented as of this encounter Last Filed Vital Signs Vital Sign Reading Time Taken Comments Blood Pressure 110/64 09/15/2011 1:05 PM CDT Pulse 68 09/15/2011 1:05 PM CDT Temperature - - Respiratory Rate - - Oxygen Saturation - - Inhaled Oxygen Concentration - - Weight 57.2 kg (126 lb) 09/15/2011 1:05 PM CDT Height 175.9 cm (5' 9.25) 09/15/2011 1:05 PM CDT Body Mass Index 18.47 09/15/2011 1:05 PM CDT documented in this encounter Patient Instructions Patient InstructionsCorry Murillo, DYNAMOMETER TESTER - 09/15/2011 1:34 PM CDT Thank you for enrolling in [facility]. Please follow the instructions below to securely access your online medical record. [facility] allows you to send messages to your doctor, view your test results, renewyour prescriptions, schedule appointments, and more. How Do I Sign Up? 1. In your Internet browser, go to: [email or web address] 2. Click on the Sign Up Now link in the Sign In box. You will see the New Member Sign Up page. 3. Enter your [facility] Access Code exactly as it appears below. You will not need to use this code after you???ve completed the sign-up process. If you do not sign up before the expiration date, you must request a new code. [facility] Access Code: [email or web address] Expires: 10/15/11 01:28 PM 4. Enter your Social Security Number ([id number]) and Date of (mm/dd/yyyy) as indicated and click Submit. You will be taken to the next sign- up page. 5. Create a [facility] ID. This will be your [facility] login ID and cannot be changed, so think of one that is secure and easy to remember. 6. Create a [facility] password. You can change your password at any time. 7. Enter your Password Reset Question and Answer. This can be used at a later time if you forget your password. 8. Enter your e-mail address. You will receive e-mail notification when new information is availablein [facility]. 9. Click Sign Up. You can now view your medical record. Additional Information If you have questions, you can call [phone] to talk to our [facility] staff. Remember, [facility] is NOT to be used for urgent needs. For medical emergencies, dial 911. Thank you for enrolling in [facility]. Please follow the instructions below to securely access your online medical record. [facility] allows you to send messages to your doctor, view your test results, renewyour prescriptions, schedule appointments, and more. How Do I Sign Up? 10. In your Internet browser, go to: [email or web address] 11. Click on the Sign Up Now link in the Sign In box. You will see the New Member Sign Up page. 12. Enter your [facility] Access Code exactly as it appears below. You will not need to use this code after you???ve completed the sign-up process. If you do not sign up before the expiration date, you must request a new code. [facility] Access Code: [email or web address] Expires: 10/15/11 01:28 PM 13. Enter your Social Security Number ([id number]) and Date of (mm/dd/yyyy) as indicated and click Submit. You will be taken to the next sign- up page. 14. Create a [facility] ID. This will be your [facility] login ID and cannot be changed, so think of one that is secure and easy to remember. 15. Create a [facility] password. You can change your password at any time. 16. Enter your Password Reset Question and Answer. This can be used at a later time if you forget your password. 17. Enter your e-mail address. You will receive e-mail notification when new information is available in [facility]. 18. Click Sign Up. You can now view your medical record. Additional Information If you have questions, you can call [phone] to talk to our [facility] staff. Remember, [facility] is NOT to be used for urgent needs. For medical emergencies, dial 911. documented in this encounter Progress Notes Chanel Herman PA-C - 09/15/2011 2:02 PM CDT Preventive Exam SUBJECTIVE: 26 y.o. y/o patient presents for a routine preventive physical exam. Additional concerns: Breast lump on left side at 1 o'clock position - Chanel Herman PA-C 09/15/11 02:01 PM Signed On examination today patient had a breast lump that was noted at the 1:00 position of the left breast. It was about 1 cm in diameter. It was smooth and movable. Suspect that this is a cyst in patient will be scheduled for ultrasound. There is no family history of breast cancer. She is not on hormones. She has never had any pregnancies. Creasing Machine Operator History: : LMP: Patient's last menstrual period was 08/02/2011. Pap hx: Does patient have history of abnormal pap smear? no. She has never been active, she is getting this fall STD Hx: Does patient have a history of a STD? no none Sexual History: History Sexual Activity ??? Sexually Active: Not Currently -- Male partner(s) ??? Control/ Protection: Pill Past Medical History Diagnosis Date ??? No known problems 09/15/2011 Family History Problem Relation Age of Onset ??? High Cholesterol Father History Social History ??? Marital Status: Single Spouse Name: N/A Number of Children: N/A ??? 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 Smoking status: Never Smoker ??? Smokeless tobacco: Not on file ??? Alcohol Use: No rare ??? Drug Use: No ??? Sexually Active: Not Currently -- Male partner(s) Control/ Protection: Pill Other Topics Concern ??? Exercise Yes ??? Seat Belt Yes ??? Special Diet No ??? Weight Concern No Social History Narrative ??? No narrative on file Adverse drug reactions: No Known Allergies Current Medications: Outpatient encounter prescriptions as of 09/15/2011 Medication Sig Dispense Refill ??? DISCONTD: azithromycin (ZITHROMAX) 500 mg tablet Take 2 tablets by mouth. LW Addl Instr:take 1000 mg as a one time dose for severe traveler's diarrhea. Per travel clinic protocol 4 ??? DISCONTD: doxycycline (VIBRA-TABS) 100 mg tablet Take 1 tablet by mouth daily (every 24 hours). LW Addl Instr:Take daily starting 2 days before, daily while there, and continue for 4 weeks after. To prevent malaria. Per travel clinic protocol. 275 ??? norgestimate-ethinyl estradiol (SPRINTEC, 28,) 0.25-35 mg-mcg per tablet Take 1 tablet by mouth daily (every 24 hours). Follow package directions 84 tablet 0 ??? DISCONTD: op medications reviewed ??? DISCONTD: patient not taking any chronic medication Review of Systems: With the exception of any items noted above, the remainder of complete ROS is negative. OBJECTIVE: BP 110/64 Pulse 68 Ht 5' 9.25 (1.759 m) Wt 126 lb (57.153 kg) BMI 18.47 kg/m2 LMP 08/02/2011 General: Patient alert, in NAD. HEENT: PERRLA. Bilateral TM's, external canals, oropharynx normal. Neck: Supple, without thyromegaly or mass. Upper extremities: FROM with good strength, no lesions or deformities. CV: RRR without murmurs, rubs or gallops. Resp: Clear to auscultation without crackles, wheezes or distress. Abdomen: Soft, non-tender, without hepatosplenomegaly, masses, or hernias. Breasts: Nontender, without masses, nipple discharge, erythema, or axillary adenopathy. Pelvic: Normal external genitalia and urethra. [place], moist vaginal and cervical mucosa, without lesions. Lymphatic: No neck, supraclavicular, axillary or groin lymphadenopathy. Lower extremities: FROM, normal gait withoutedema, lesions, or deformity. Skin: No lesions. Neuro: CN II- XII, motor & sensory function all intact. Psychiatric: Alert & oriented with normal affect and insight, does not appear depressed oranxious. ASSESSMENT: Encounter Diagnoses Name Primary? Well adult exam Yes ??? Need for hepatitis B vaccination ??? Breast lump on left side at 1 o'clock position Plan: Yamilet was seen today for annual exam. Diagnoses and associated orders for this visit: Well adult exam - norgestimate-ethinyl estradiol (SPRINTEC, 28,) 0.25-35 mg-mcg per tablet; Take 1 tablet by mouth daily (every 24 hours). Follow package directions Need for hepatitis b vaccination - Hep B Adult (20+YRS) Breast lump on left side at 1 o'clock position - MM US Cyst Asp Breast, Initial ([facility]); Future Follow up - prn documented in this encounter Miscellaneous Notes Assessment & Plan Note - Chanel Herman PA-C - 09/15/2011 2:01 PM CDT On examination today patient had a breast lump that was noted at the 1:00 position of the left breast. It was about 1 cm in diameter. It was smooth and movable. Suspect that this is a cyst in patient will be scheduled for ultrasound. There is no family history of breast cancer. She is not on hormones. She has never had any pregnancies. documented in this encounter Plan of Treatment Not on filedocumented as of this encounter Visit Diagnoses Diagnosis Well adult exam - Primary Routine general medical examination at a health care facility Need for hepatitis B vaccination Need for prophylactic vaccination and in oculation against viral hepatitis Breast lump on left side at 1 o'clock po sition Lump or mass in breast documented in this encounter
--- OUTSIDE RECORDS SUMMARY | 2021-12-06 21:47 | XMS_ITS | Encounter Summary ---
:1985 Author Organization [facility] Address [address] [place] [address] Care Team Providers Name Role Phone Jeri García MD Primary Care Provider Encounter Details Date Type Department Care Team Description 07/09/2008 Office Visit [facility] Lidia Aquino APRN, [facility] BRIQUETTE OPERATOR [address] [facility] [address] [address] N[place] [address]tazar [address] [place] [address] [phone] (Wo rk) Social History Tobacco Use Types Packs/Day Years Used Date Smoking Tobacco: Never Alcohol Use Standard Drinks/Week Comments No 0 (1 standard drink = 0.6 oz pure alcoho l) Sex Assigned at Date Recorded Not on file documented as of this encounter Last Filed Vital Signs Vital Sign Reading Time Taken Comments Blood Pressure 106/64 07/09/2008 1:52 PM CDT Pulse 72 07/09/2008 1:52 PM CDT Temperature 36.7 ??C (98.1 ??F) 07/09/2008 1:52 PM CDT C: 36 .7 C Respiratory Rate - - Oxygen Saturation - - Inhaled Oxygen Concentration - - Weight 53.6 kg (118 lb 3.7 oz) 07/09/2008 1:52 PM CDT C : 53.6kg Height - - Body Mass Index 17.21 06/27/2008 2:15 PM PHOTO OPTICS TECHNICIAN documented in this encounter Progress Notes Lidia Aquino APRN, BRIQUETTE OPERATOR - 07/09/2008 12:01 AM CDT Progress Notes signed by AGUILA Connell at 07/16/08 1419 Author: AGUILA Connell Service: (none) Author Type: (none) Filed: 08/20/10 1324 Note Time: 07/09/08 0001 Status: Signed Band Aid Machine Operator: AGUILA Connell (Nurse Practitioner) NAME: YAMILET DAILY MR#: [id number] ACCT: [id number] VISIT: [id number] DICTATING CLINICIAN: AGUILA Connell CONFIRM #: [id number] LOC: 506 CLINIC PROGRESS NOTE DATE OF VISIT: 07/09/2008 SUBJECTIVE: : 1985. A 23-year-old in clinic today because she just has not been feeling well for about 3 weeks. She describes having quite a productive cough, a runny nose, headache every day. She has also been nauseated recently. She was recently out of the country in [place], got back about a month ago and about a week after she returned she started feeling sick. She has intermittent abdominal discomfort, but no diarrhea. No constipation. Her last bowel movement was this morning. It was a good movement, soft, easy to move, and did not appear other then just medium brown to her. She has not had any pain with urination. No urgency or frequency. She has had no rashes. No neurologic symptoms. She had a fever of about 100 at the beginning of the illness and about 1 week into the illness she went to a [facility] clinic and was tested negative for strep, but put on amoxicillin and she is currently taking that amoxicillin. She does not think that it has been doing any than. She has never had the hepatitis B immunization series, but she did have the hepatitis A immunizations. She has not had a history of mononucleosis in the past. She does describe having some left low quadrant pain been usually at night. She says it is really very mild. She would not describe it as pain so much as either. OTHER PAST MEDICAL HISTORY: Acne. MEDICATIONS: None. ADR/ALLERGIES: NONE KNOWN. This young lady has never been sexually active. OBJECTIVE: VS: BP: 106/64. P: 98. P: 72. Wt: 118.4. This is a tall, slender, young lady who is not dyspneic with a respiratory rate of 18. However, she coughs a deep, wet cough frequently. She is alert and oriented x3. SKIN: Is warm, dry, nondiaphoretic. HEENT: Eyes, conjunctivae clear and PERRLA. Ears TMs pearly schwarz without distortion. Nasal passages with mucopurulent coryza. Posterior pharynx without erythema or edema. NECK: Supple without anterior or posterior cervical lymphadenopathy. LUNGS: She has end-expiratory wheezes in the upper lobes. No rales or rhonchi. CARDIOVASCULAR: S1, S2. Rate and rhythm regular without murmur. EXTREMITIES: No dependent edema. LABS: White count is 5.4, slightly elevated neutrophil count. BUN, creatinine, lytes in normal limits. Urinalysis is negative. Mononucleosis negative. Pending labs include parvo virus, hepatitis B antibody and antigen. Chest x-ray, no acute pulmonary process noted. Normal cardiac silhouette and pulmonary vasculature. ASSESSMENT: 1. Bronchitis. PLAN: She is given a Medrol Dosepak, azithromycin with instructions on use of both of these. Also encouraged to use an albuterol inhaler for the wheezing and I instruct her on how to use that. I have asked her to follow up with me in 2 weeks or sooner if she is not improving. She is in agreement with the above plan. LAE:[id number] C: 07/10/08 07:13 CONFIRM #: [id number] documented in this encounter Plan of Treatment Not on filedocumented as of this encounter Procedures Procedure Name Priority Date/Time Associated Diagnosis Comme nts XR CHEST 2 VIEWS Routine 07/09/2008 3:24 PM Resul ts for this CDT procedure are i n the results section. documented in this encounter Results XR Chest 2 Views (07/09/2008 3:24 PM CDT) Anatomical Region Laterality Modality Chest, Lung Other Specimen (Source) Anatomical Location Collection Method / Collectio n Time Received Time / Laterality Volume Impressions 07/09/2008 3:24 PM CDT : ??Negative chest. [id number]/nakia Dictating ARMANDO GOMEZ Radiologist Narrative 07/09/2008 3:24 PM CDT COMPARISON: ??None. CLINICAL HISTORY: ??23-year-old female w ith cough. Procedure Note Armando Heller MD - 07/06/2016Formattin g of this note might be different from the original. COMPARISON: None. CLINICAL HISTORY: 23-year-old female wit h cough. IMPRESSION : Negative chest. [id number]/yee Dictating ARMANDO GOMEZ Radiologist Lidia Aquino SUPPLIER SPECIALIST, BRIQUETTE OPERATOR RAD GD documented in this encounter Visit Diagnoses Not on filedocumented in this encounter Care Teams Artist Scientific Relationship Specialty Start Date End Date Jeri García MD PCP - General 08/02/10 09/06/11 [address] [place] [address] documented as of this encounter
--- OUTSIDE RECORDS SUMMARY | 2021-12-06 21:47 | XMS_ITS | Encounter Summary ---
:1985 Author Organization [employer] Address [address] [place] [address] Care Team Providers Name Role Phone Unassigned, Provider Primary Care Provider Unavailable Reason for Visit Reason Comments SORE THROAT,NURSE Encounter Details Date Type Department Care Team Description 12/13/[address] [facility] Acute P haryngitis (Primary Department Dx) [address] [place], [place] [address] Social History Tobacco Use Types Packs/Day Years Used Date Smoking Tobacco: Never Alcohol Use Standard Drinks/Week Comments No 0 (1 standard drink = 0.6 oz pure alcoho l) Sex Assigned at Date Recorded Not on file documented as of this encounter Last Filed Vital Signs Vital Sign Reading Time Taken Comments Blood Pressure 118/80 12/13/2006 1:45 PM CDT Pulse 74 12/13/2006 1:45 PM CDT Temperature 36.9 ??C (98.4 ??F) 12/13/2006 1:45 PM CDT Respiratory Rate 10 12/13/2006 1:45 PM CDT Oxygen Saturation - - Inhaled Oxygen Concentration - - Weight 54 kg (119 lb 2 oz) 12/13/2006 1:45 PM CDT Height 177.8 cm (5' 10) 12/13/2006 1:45 PM CDT Body Mass Index 17.09 12/13/2006 1:45 PM CDT documented in this encounter Progress Notes Lashanda Vaughn E - 12/13/2006 1:56 PM CDT S: Yamilet Goldman complains of sore throat lasting 3 day(s). Other presenting symptoms include: HEADACHE and sore throat Fever? NO Pertinent medical history includes: NONE O: BP 118/80 Pulse 74 Temp (Src) 98.4 ??F (36.9 ??C) (Oral) Resp 10 Ht 5' 10 (1.778 m) Wt 119 lbs 2.0 oz (54.035 kg) Objective exam of patient indicates RED, INFLAMED THROAT Complicating symptoms or history includes: NONE Phone number: [phone] (home) [phone] (work), alternate number . A: Sore Throat P: Wait for rapid strep results Rapid Strep Screen Negative: Sore throat health education given Reviewed home treatment/comfort measures for sore throat Notify clinic if no improvement after 48 hours. Strep culture pending. Patient will be notified IF culture positive For a fever and general aches and pains, take acetaminophen (Tylenol??) tablets every four hours. Drink one to two quarts of water or juice in addition to the six to eight glasses of water a day that is normally recommended, Use warm salt water gargles, rest, and use a cold air vaporizer for comfort. Lashanda Moreno. NILA Vaughn, 1:56 PM 12/13/2006 documented in this encounter Plan of Treatment Not on filedocumented as of this encounter Procedures Procedure Name Priority Date/Time Associated Diagnosis Comme nts STREP GRP A, RAPID Waiting 12/13/2006 1:59 PM Acute Pharyngiti s Results for this SCREEN CDT procedure are i n the results section. documented in this encounter Results RAPID, GPA STREP SCREEN (WAITI [[id number]] (12/13/2006 1:59 PM CDT) [facility] Method Time Signature Patient Home None [facility] Phone # Patient Work None [facility] Phone # Grp A Rapid Negative [facility] Screen Grp A Culture Negative [facility] Final Specimen Anatomical Collection Method Collection Time Receive d Time (Source) Location / / Volume Laterality 12/13/2006 1:59 PM 7 2:00 CDT PM CDT Myrna Torres MD LAB_1 Performing Organization Address City/State/ZIP Code Phon e Number [facility] [phone] [facility] [address] [place] [phone] documented in this encounter Visit Diagnoses Diagnosis Acute pharyngitis - Primary documented in this encounter Care Teams Aircraft Design Engineer Relationship Specialty Start Date End Date Unassigned, Provider PCP - General 01/31/00 08/01/10 [address] [place] [address] documented as of this encounter
--- OUTSIDE RECORDS SUMMARY | 2021-12-06 21:47 | XMS_ITS | Encounter Summary ---
:1985 Author Organization [facility] Address [address] [place] [address] Care Team Providers Name Role Phone Jeri García MD Primary Care Provider Encounter Details Date Type Department Care Team Description 07/09/2008 PN Conversion Only [facility] Lidia Aquino APRN, [address] [place] [address] [place] [address] (Wo rk) Social History Tobacco Use Types Packs/Day Years Used Date Smoking Tobacco: Never Alcohol Use Standard Drinks/Week Comments No 0 (1 standard drink = 0.6 oz pure alcoho l) Sex Assigned at Date Recorded Not on file documented as of this encounter Plan of Treatment Not on filedocumented as of this encounter Visit Diagnoses Not on filedocumented in this encounter Care Teams Meeting Coordinator Relationship Specialty Start Date End Date Jeri García MD PCP - General 08/02/10 09/06/11 [address] [place] [id number] documented as of this encounter
--- OUTSIDE RECORDS SUMMARY | 2021-12-06 21:47 | XMS_ITS | Encounter Summary ---
:1985 Author Organization [facility] Address [address] [place] [address] Care Team Providers Name Role Phone Jeri García MD Primary Care Provider Encounter Details Date Type Department Care Team Description 07/09/2008 PN Conversion Only [facility] [address] [address] [place] [address] Social History Tobacco Use Types Packs/Day Years Used Date Smoking Tobacco: Never Alcohol Use Standard Drinks/Week Comments No 0 (1 standard drink = 0.6 oz pure alcoho l) Sex Assigned at Date Recorded Not on file documented as of this encounter Plan of Treatment Not on filedocumented as of this encounter Visit Diagnoses Not on filedocumented in this encounter Care Teams Health Sciences Department Chair Relationship Specialty Start Date End Date Jeri García MD PCP - General 08/02/10 09/06/11 [address] [place] [id number] documented as of this encounter
--- OUTSIDE RECORDS SUMMARY | 2021-12-06 21:47 | XMS_ITS | Encounter Summary ---
:1985 Author Organization [facility] Address [address] [place] [address] Care Team Providers Name Role Phone Jeri García MD Primary Care Provider Encounter Details Date Type Department Care Team Description 04/19/2005 Office Visit [facility] [address] Twila Collier MD Dermatology [address] [facility] [address] [facility] [address] [place], [place] [address] [phone] Social History Tobacco Use Types Packs/Day Years Used Date Smoking Tobacco: Never Assessed Sex Assigned at Date Recorded Not on file documented as of this encounter Progress Notes Twila Collier MD - 04/19/2005 12:01 AM CST Progress Notes signed by Twila Collier MD at 04/21/05 0736 Author: Twila Collier MD Service: (none) Author Type: Physician Filed: 08/19/10 1020 Note Time: 04/19/05 0001 Status: Signed Dynamometer Tester Engine: Twila Collier MD (Physician) NAME: YAMILET DAILY MR: [id number] ACCT: [id number] VISIT: [id number] DICTATING CLINICIAN: TWILA COLLIER MD JOB: [id number] CLINIC PROGRESS NOTE DATE OF VISIT: 04/19/2005 SUBJECTIVE: CHIEF COMPLAINT: Acne. HPI: A 20-year-old female is referred by Mariano Braun PA-C for acne. She has a long history of acne throughout her teenage years and has just been getting worse. She has been on minocycline in the past, but it caused dark spots to form in her acne lesions, so she switched to doxycycline, but she thinks it has just made the older acne lesions last longer. She has used Retin A Micro in the past as well. She has been on Ortho Tri-Cyclen in the past, but is not currently on any control and is not sexually active, and has no plans to get in the foreseeable future. She is using Clinique products, as well as Bare Essentials. She has a lot of trouble with moisturizers breaking out her skin. OBJECTIVE: Well-nourished, well-developed female, Fuentes skin type 3. Alert and oriented and in no acute distress. Face: Inflammatory papules. A lot over the forehead, nose, cheeks, and chin, as well as inferior chin and upper portion of the neck. Lower neck, chest, arms, and back are examined and are clear. ASSESSMENT: Acne, moderate severity, but localized to the face. The patient would not like to be on antibiotics if possible. PLAN: 1. Spironolactone 50 mg p.o. q.a.m. Check potassium in two weeks. Discussed side-effects including elevated potassium, increased urinary frequency; that she should not get while on this medicine. 2. Benzaclin once daily nightly. 3. Samples given of Purpose and Neutrogena moisturizer, as well as Cetaphil face cleanser to try. 4. The patient's questions were answered and she will follow up in approximately two and a half months. CC: MARIANO BRAUN PA-C [facility]:[id number] C: 04/19/05 13:44 DOCUMENT: [id number] ATORS SCHOOL MANAGER documented in this encounter Plan of Treatment Not on filedocumented as of this encounter Visit Diagnoses Not on filedocumented in this encounter Care Teams Practice Manager Relationship Specialty Start Date End Date Jeri García MD PCP - General 08/02/10 09/06/[address] [place] [address] documented as of this encounter
--- OUTSIDE RECORDS SUMMARY | 2021-12-06 21:47 | XMS_ITS | Encounter Summary ---
:1985 Author Organization [facility] Address [address] [place] [address] Care Team Providers Name Role Phone Megan García MD Primary Care Provider Reason for Visit Reason Comments Other Encounter Details Date Type Department Care Team Description 11/03/2004 Telephone [facility] [place], Message Other [address] [place] [address] Social History Tobacco Use Types Packs/Day Years Used Date Smoking Tobacco: Never Assessed Sex Assigned at Date Recorded Not on file documented as of this encounter Progress Notes Khushi Gibson - 11/03/2004 10:31 AM CDT Phone Note filed by Khushi Gibson RN at 08/15/101912 Author: Khushi Gibson RN Service: (none) Author Type: (none) Filed: 08/15/101912 Note Time: 11/03/04 1031 Status: Signed Special Education Case Manager: Khushi Gibson RN (Registered Nurse) Pt saw Dr García for acne on 07-28-04. She was given Minocin 100mg. Pt says this works to prevent new pimples, but the old pimples turn purple and stay there. She looked up Minocin and sees that this is a common side effect. She does use the Retin A Micro on her cheeks only, as it makes the rest of her face too dry. She does not have these purple blemishes on her cheeks. She quit the bc pills as she didn't think they helped. Let pt know your recommendations at [phone]. Pharm is [facility] in [place] [phone]. Created on 03Nov2004 10:31am by KHUSHI GIBSON On 03Nov2004 12:35pm MEGAN GARCÍA wrote: we could try doxycyline instead, 100 mg dialy #30, 5 refills, to see if it works as well but without the discoloration. Acknowledged by MEGAN GARCÍA on 12:35pm On 03Nov2004 1:23pm BOBBY CENTENO wrote: Rx called in as above, and left message on pt voice mail. ANALYTICS ANALYST documented in this encounter Plan of Treatment Not on filedocumented as of this encounter Visit Diagnoses Not on filedocumented in this encounter Care Teams Customer Business Manager Relationship Specialty Start Date End Date Megan García MD PCP - General 08/02/10 09/06/11 [address] [place] [address] documented as of this encounter
--- OUTSIDE RECORDS SUMMARY | 2021-12-06 21:47 | XMS_ITS | Encounter Summary ---
:1985 Author Organization [facility] Address [address] [place] [address] Care Team Providers Name Role Phone Jeri García MD Primary Care Provider Encounter Details Date Type Department Care Team Description 03/18/2003 PN Conversion Only [facility] [address] [place] [address] Social History Tobacco Use Types Packs/Day Years Used Date Smoking Tobacco: Never Assessed Sex Assigned at Date Recorded Not on file documented as of this encounter Plan of Treatment Not on filedocumented as of this encounter Visit Diagnoses Not on filedocumented in this encounter Care Teams Rotating Equipment Specialist Relationship Specialty Start Date End Date Jeri García MD PCP - General 08/02/10 09/06/[address] [id number] documented as of this encounter
--- OUTSIDE RECORDS SUMMARY | 2021-12-06 21:47 | XMS_ITS | Encounter Summary ---
:1985 Author Organization [facility] Address [address] [place] [address] Care Team Providers Name Role Phone Jeri García MD Primary Care Provider Encounter Details Date Type Department Care Team Description 10/28/2003 Office Visit [facility] Mikala Del Valle PA-C [address] [facility] [address] [place] [address] [place] [address] [phone] (Wo rk) Social History Tobacco Use Types Packs/Day Years Used Date Smoking Tobacco: Never Assessed Sex Assigned at Date Recorded Not on file documented as of this encounter Progress Notes Mikala Del Valle PA-C - 10/28/2003 12:01 AM CDT Progress Notes signed by Mikala Del Valle PA-C at 01/25/04 2963 Author: Mikala Kumari PA-C Service: (none) Author Type: Physician Lockstitch Waistline Joiner Filed: 08/19/10 0010 Note Time: 10/28/03 0001 Status: Signed Peoplesoft Administrator: Mikala Kumari PA-C (Physician Lockstitch Waistline Joiner) NAME: YAMILET DAILY MR: [id number] ACCT: [id number] VISIT: [id number] DICTATING CLINICIAN: ROCIO DRIVER JOB: [id number] CLINIC PROGRESS NOTE DATE OF VISIT: 10/28/2003 SUBJECTIVE: Yamilet is a 22-year-old female in today in followup of acne. States the Retin-A Micro gel and the Benzoquin combination dried her skin out so much that she had more acne lesions. She quit both medications about 2 weeks ago. States she is now back at baseline. States her acne is still centered on her face. Would like something else to try to diminish her symptoms. PAST MEDICAL HISTORY: Acne. CURRENT MEDICATIONS: None. ADR/ALLERGIES: NONE. OBJECTIVE: This is a 18-year-old female in NAD. She is WH, WN. SKIN: Warm and dry. There are several erythematous papular lesions across her cheeks, forehead, and chin. Some open comedonal acne more sparsely scattered along the bridge of her nose and on her cheeks. No involvement of her neck, chest, back, shoulders. Patient is alert and oriented x3. ASSESSMENT: Acne. PLAN: Will go ahead and try minocycline 100 mg 1 p.o. b.i.d. Placed her also on Azelex cream to be used twice daily to clean skin. Gentle moisturizers and cleansers were encouraged. Side effect profile was reviewed of both medications. Products good to use for those prone to acne were given to her today. She will return in 2 months for followup. FINAL IMPRESSION: Acne. Total time with the patient, 15 minutes today, 10 of which were spent in counseling over side effect profile and counseling on how to treat the acne. [id number] C: 10/28/03 16:10 DOCUMENT: [id number] documented in this encounter Plan of Treatment Not on filedocumented as of this encounter Visit Diagnoses Not on filedocumented in this encounter Care Teams Furniture Removalist'S Assistant Relationship Specialty Start Date End Date Jeri García MD PCP - General 08/02/10 09/06/11 [address] [place] [address] documented as of this encounter
--- OUTSIDE RECORDS SUMMARY | 2021-12-06 21:47 | XMS_ITS | Encounter Summary ---
:1985 Author Organization [facility] Address [address] [place] [address] Care Team Providers Name Role Phone Jeri García MD Primary Care Provider Encounter Details Date Type Department Care Team Description 12/26/2005 PN Conversion Only [facility] [address] [place] [address] Social History Tobacco Use Types Packs/Day Years Used Date Smoking Tobacco: Never Assessed Sex Assigned at Date Recorded Not on file documented as of this encounter Plan of Treatment Not on filedocumented as of this encounter Visit Diagnoses Not on filedocumented in this encounter Care Teams Natural Gas Field Processing Supervisor Relationship Specialty Start Date End Date Jeri García MD PCP - General 08/02/10 09/06/11 [address] [place] [id number] documented as of this encounter
--- OUTSIDE RECORDS SUMMARY | 2021-12-06 21:47 | XMS_ITS | Encounter Summary ---
:1985 Author Organization [employer] Address [address] [place] [address] Care Team Providers Name Role Phone Unavailable Primary Care Provider Unavailable Reason for Visit Reason Comments Abdominal Pain Encounter Details Date Type Department Care Team Description 07/01/2012 Hospital Encounter [facility] Luann Molina A bdominal pain, unspecified site; Care MD Bacterial vaginosis [id number] [id number] [phone] Social History Tobacco Use Types Packs/Day Years Used Date Smoking Tobacco: Never Alcohol Use Standard Drinks/Week Comments No 0 (1 standard drink = 0.6 oz pure alcoho l) Sex Assigned at Date Recorded Not on file documented as of this encounter Last Filed Vital Signs Vital Sign Reading Time Taken Comments Blood Pressure 110/74 07/01/2012 8:19 AM ASSISTANT CUSTOMER SERVICE MANAGER Pulse 88 07/01/2012 8:19 AM ASSISTANT CUSTOMER SERVICE MANAGER Temperature 36.3 ??C (97.3 ??F) 07/01/2012 8:19 AM ASSISTANT CUSTOMER SERVICE MANAGER Respiratory Rate 16 07/01/2012 8:19 AM ASSISTANT CUSTOMER SERVICE MANAGER Oxygen Saturation - - Inhaled Oxygen Concentration - - Weight - - Height - - Body Mass Index - - documented in this encounter Medications at Time of Discharge Medication Sig Dispensed Refills Start Date End Date CLINDAMYCIN PHOSPHATE Place 1 suppository 3 suppository 0 07/04/2012 VAGINAL (aka CLEOCIN) vaginally nightly SUPP for 3 days. ondansetron (aka Take 1 tablet by 12 tablet 0 07/01/2012 ZOFRAN) tablet mouth every 8 hours as needed for Nausea and Vomiting for 4 days. norethindrone-ethinyl Take 1 tablet by 84 tablet 1 06/25/19 13 07/31/2013 estradiol (AKA mouth daily (every MICROGESTIN 05/19) 24 hours). Follow 1mg-20mcg tablet package directions ondansetron (AKA Take 1 tablet by 30 tablet 0 06/26/2012 ZOFRAN) 4 MG mouth every 8 hours tabletIndications: as needed for Nausea Nausea alone and Vomiting. documented as of this encounter ED Notes Luann Molina MD - 07/01/2012 2:24 PM CST ED Provider Notes signed by Luann Molina MD at 07/05/12 0755 Author: Luann Molina MD Service: (none) Author Type: Physician Filed: 07/05/12 0755 Note Time: 07/01/121423 Status: Signed Packing House Supervisor: Luann Molina MD (Physician) NAME: YAMILET LORA MR#: [id number] CSN: [id number] AUTHENTICATING CLINICIAN: Luann Molina MD CONFIRM #: [id number] LOC: 520 URGENT CARE PROGRESS NOTE DATE OF VISIT: 07/01/2012 : 1985 CHIEF COMPLAINT: Left-sided abdominal pain. HPI: This pleasant 27-year-old comes in today complaining of a 7-day history of a vague left lower abdominal pain but it seemed to get much worse today. It is localized to the left lower quadrant. It is more of a stabbing pain. It was very painful for her, it hurts an 8/10. Denies any burning upon urination or frequency of urination. Denies any vaginal discharge. The patient was last December andat was her first sexual partner. She denies any risk for STDs. She has not had any vaginal discharge. She was on control pills, but she was having some problems with nauseousness and not feeling well on them and getting headaches so she stopped them on June 19 and since then she has had spotting off and on continuously. It has not been very heavy but it has been a daily that she has had this spotting. She does not feel lightheaded or dizzy. PAST MEDICAL HISTORY: UTI. PAST SURGICAL HISTORY: Reviewed, see Epic. MEDICATION: Reviewed, see Epic. ALLERGIES: No known drug allergies. OBJECTIVE: Temperature 97.3, pulse 88, respirations 16, blood pressure 110/74. GENERAL: Alert, oriented, no apparent distress. LUNGS: Clear to auscultation bilaterally. HEART: Regular without murmurs, rubs, or gallops. ABDOMEN: Soft. Tender in the left lower quadrant. No guarding or rebound. No hepatosplenomegaly. Positive bowel sounds. PELVIC EXAM: Reveals normal female genitalia. Speculum was inserted. Cervix well visualized. Wet prep was obtained. There is no cervical motion tenderness. Of note, there is no uterine enlargement. I did feel some mild ovarian fullness on the left, although very mild. DIAGNOSTIC STUDIES: White blood count 4.6, hemoglobin 15.8, hematocrit 46.4, platelets 273. Urine test is negative. Wet prep shows many white blood cells, few yeast and a few clue cells. Urinalysis shows moderate blood in the urine, 15 ketones, trace leukocyte esterase, occasional bacteria, 3-4 white blood cells. Pelvic ultrasound was within normal limits. CT scan of the abdomen and pelvis is also negative. ASSESSMENT: Left-sided pelvic pain. Certainly this could be related to her irregular bleeding. We also talked about possible endometriosis although she has never had any pelvic pain prior to this time. She does have a mild amount of clue cells and so we are going to treat her with Cleocin suppositories for 3 nights. Also was given Zofran 4 mg 3 times a day as needed for nauseousness #12. I want her to follow up with Gynecology for her abnormal periods. Apparently they did give her a new control pack to try to see if maybe this will make her less nauseous, so she is going to start that to see if that helps with the bleeding and the pain. Of note, she recently had a urinary tract infection. Was treated with Macrobid and those symptoms feel better. Will do urine culture just to make sure that is completely gone but the urinalysis looks much improved. The patient is in agreement with theplan, and certainly if symptoms worsen she needs to follow up and she is in agreement the plan. DAVID:MEDQ C: CONFIRM #: [id number] STANT CUSTOMER SERVICE MANAGER Luann Molina MD - 07/01/2012 1:18 PM CST .dict documented in this encounter Miscellaneous Notes Medication History - Jarad Rain MD - 07/01/2012 1:19 PM CST INPATIENT MEDS Encounter Date: 07/01/12 clindamycin (CLEOCIN) 100 mg vaginal suppository Start Date:07/01/12, End Date:07/04/12, Frequency:AT BEDTIME *No Administrations Recorded ondansetron (ZOFRAN) 4 mg tablet Start Date:07/01/12, End Date:07/05/12, Frequency:EVERY 8 HOURS PRN *No Administrations Recorded diatrizoate meglumine-sodium (MD-GASTROVIEW) solution 15 mL Start Date:07/01/12, End Date:07/01/12, Frequency:ONCE Taken Dose Action User Route Site Recorded Comment Reason 07/01/12 1221 15 mL Given Kiley Potter RN Oral - 07/01/12 1222 - - diatrizoate meglumine-sodium (MD-GASTROVIEW) solution 15 mL Start Date:07/01/12, End Date:07/01/12, Frequency:ONCE Taken Dose Action User Route Site Recorded Comment Reason 07/01/12 1119 15 mL Given Mulu Roche RN Oral - 07/01/12 1119 - - STANT CUSTOMER SERVICE MANAGER documented in this encounter Plan of Treatment Not on filedocumented as of this encounter Procedures Procedure Name Priority Date/Time Associated Diagnosis Comme nts CT ABD PELVIS W IV Routine 07/01/2012 12:47 Abdominal pain, Re sults for this CONT PM ASSISTANT CUSTOMER SERVICE MANAGER unspecified site procedure a re in the results section. WET PREP STAT 07/01/2012 11:02 Abdominal pain, Results for this AM ASSISTANT CUSTOMER SERVICE MANAGER unspecified site procedure a re in the results section. US PELVIC COMPLETE W Routine 07/01/2012 10:42 Abdominal pain, Results for this EV AM ASSISTANT CUSTOMER SERVICE MANAGER unspecified site procedure a re in the results section. COMPLETE BLOOD STAT 07/01/2012 9:16 AM Abdominal pain, Resu lts for this COUNT-W/DIFF ASSISTANT CUSTOMER SERVICE MANAGER unspecified site procedure a re in the results section. DIFFERENTIAL STAT 07/01/2012 9:16 AM Results f or this ASSISTANT CUSTOMER SERVICE MANAGER procedure are i n the results section. SEXUALLY TRANSMITTED STAT 07/01/2012 9:06 AM Abdominal pain , Results for this DISEASE PROBE ASSISTANT CUSTOMER SERVICE MANAGER unspecified site procedure are in the results section. URINE MICROSCOPIC STAT 07/01/2012 9:05 AM Abdominal pain, R esults for this ASSISTANT CUSTOMER SERVICE MANAGER unspecified site procedure a re in the results section. URINALYSIS STAT 07/01/2012 9:05 AM Abdominal pain, Result s for this ROUTINE(MICRO IF POS) ASSISTANT CUSTOMER SERVICE MANAGER unspecified site pr ocedure are in the results section. TEST STAT 07/01/2012 9:05 AM Abdominal pain, Resu lts for this (URINE) ASSISTANT CUSTOMER SERVICE MANAGER unspecified site procedure a re in the results section. documented in this encounter Results CT Abd Pelvis W IV Cont (07/01/2012 12:47 PM ASSISTANT CUSTOMER SERVICE MANAGER) Anatomical Region Laterality Modality Abdomen, Pelvis Other Specimen (Source) Anatomical Location Collection Method / Collectio n Time Received Time / Laterality Volume Impressions 07/01/2012 1:03 PM ASSISTANT CUSTOMER SERVICE MANAGER IMPRESSION: No evidence for appendicitis, diverticul itis, or bowel obstruction. ?? No specific abnormality to definitely ex plain the patient's symptomatology. Narrative 07/01/2012 1:03 PM ASSISTANT CUSTOMER SERVICE MANAGER COMPARISON: ?? None. ?? TECHNIQUE: ??Abdomen and pelvis CT was p erformed following 100 mL of Optiray 300 intravenously and oral contr ast. ?? FINDINGS: ?? The lung bases are clear, no pleural eff usions. The liver, spleen, kidneys, adrenal glan ds, and pancreas are unremarkable. ?? The appendix is not seen, but there are no findings in the right lower quadrant to suggest acute appendic itis. The bowel is normal in caliber. ??No sig nificant ascites. Procedure Note Justus Magaña MD - 10/16/2015For matting of this note might be different from the original. COMPARISON: None. TECHNIQUE: Abdomen and pelvis CT was per formed following 100 mL of Optiray 300 intravenously and oral contr ast. FINDINGS: The lung bases are clear, no pleural eff usions. The liver, spleen, kidneys, adrenal glan ds, and pancreas are unremarkable. The appendix is not seen, but there are no findings in the right lower quadrant to suggest acute appendic itis. The bowel is normal in caliber. No signi ficant ascites. IMPRESSION IMPRESSION: No evidence for appendicitis, diverticul itis, or bowel obstruction. No specific abnormality to definitely ex plain the patient's symptomatology. Luann Molina MD RAD CT (ABNORMAL) WET PREP (07/01/2012 11:02 AM ASSISTANT CUSTOMER SERVICE MANAGER) [facility] gist Method Time Signature WETPR White Many (A) HP CONVERSION Blood Cells WETPR Moderate HP CONVERSION Epithelial Cells WETPR Yeast Few (A) HP CONVERSION WETPR None Seen HP CONVERSION Trichomonas WETPR Clue Few HP CONVERSION Cells Wet Prep Source Cervix/Vagin HP CONVERSI ON al: Specimen Anatomical Collection Method Collection Time Receive d Time (Source) Location / / Volume Laterality 07/01/2012 11:02 07/01/2012 AM ASSISTANT CUSTOMER SERVICE MANAGER 11:08 AM ASSISTANT CUSTOMER SERVICE MANAGER Narrative HP CONVERSION - 07/01/2012 11:08 AM ASSISTANT CUSTOMER SERVICE MANAGER Performed at [facility], [address] [place] [address] Luann Molina MD LAB_1 Performing Organization Address City/State/ZIP Code Phon e Number HP CONVERSION US Pelvic Complete W EV (07/01/2012 10:42 AM ASSISTANT CUSTOMER SERVICE MANAGER) Anatomical Region Laterality Modality Pelvis Other Specimen (Source) Anatomical Location Collection Method / Collectio n Time Received Time / Laterality Volume Impressions 07/01/2012 10:52 AM ASSISTANT CUSTOMER SERVICE MANAGER IMPRESSION: Normal pelvic ultrasound. Narrative 07/01/2012 10:52 AM ASSISTANT CUSTOMER SERVICE MANAGER COMPARISON: ?None. ? FINDINGS: Transabdominal and endovaginal ultrasound was performed. ?? The uterus is 7.0 x 3.5 x 3.6 cm. ??The endometrial stripe thickness is 0.2 cm. ??The uterus has a normal ech otexture. ??The right ovary is 4.6 x 2.3 x 2.7 cm. ??The left ovary is 4.0 x 2.0 x 2.6 cm. ??The ovaries have a normal echotexture. ?? Procedure Note Justus Magaña MD - 10/16/2015For matting of this note might be different from the original. COMPARISON: None. FINDINGS: Transabdominal and endovaginal ultrasound was performed. The uterus is 7.0 x 3.5 x 3.6 cm. The en dometrial stripe thickness is 0.2 cm. The uterus has a normal echot exture. The right ovary is 4.6 x 2.3 x 2.7 cm. The left ovary is 4. 0 x 2.0 x 2.6 cm. The ovaries have a normal echotexture. IMPRESSION IMPRESSION: Normal pelvic ultrasound. Luann Molina MD RAD US Differential (07/01/2012 9:16 AM ASSISTANT CUSTOMER SERVICE MANAGER) athologist Signature Absolute 2.3 1.8 - 8.0 HP CONVERSION Neutrophils k/cmm Absolute 1.7 1.1 - 4.0 HP CONVERSION Lymphocytes k/cmm Absolute 0.4 0.2 - 0.8 HP CONVERSION Monocytes k/cmm Absolute 0.1 0.0 - 0.5 HP CONVERSION Eosinophils k/cmm Absolute 0.1 0.0 - 0.2 HP CONVERSION Basophils k/cmm Specimen Anatomical Collection Method Collection Time Receive d Time (Source) Location / / Volume Laterality 07/01/2012 9:16 AM 3 9:16 ASSISTANT CUSTOMER SERVICE MANAGER AM ASSISTANT CUSTOMER SERVICE MANAGER Narrative HP CONVERSION - 07/01/2012 9:42 AM ASSISTANT CUSTOMER SERVICE MANAGER Performed at [facility], [address] [place] [address] Luann Molina MD LAB_1 Performing Organization Address City/State/ZIP Code Phon e Number HP CONVERSION (ABNORMAL) Complete Blood Count W/Diff (07/01/2012 9:16 AM ASSISTANT CUSTOMER SERVICE MANAGER) [facility] gist Method Time Signature White Blood Cell 4.6 3.8 - HP CONVERSION Count 11.0 k/cmm Red Blood Cell 5.17 3.70 - HP CONVERSION Count 5.20 m/cmm Hemoglobin 15.8 (H) 11.8 - HP CONVERSION 15.5 g/dL Hematocrit 46.4 (H) 35.0 - HP CONVERSION 46.0 % Mean Corpuscular 89.8 80.0 - HP CONVERSION Volume 100.0 fL RDW 12.2 11.0 - HP CONVERSION 15.0 % Platelet Count 273 140 - 450 HP CONVERSION k/cmm Specimen Anatomical Collection Method Collection Time Receive d Time (Source) Location / / Volume Laterality 07/01/2012 9:16 AM 3 9:16 ASSISTANT CUSTOMER SERVICE MANAGER AM ASSISTANT CUSTOMER SERVICE MANAGER Narrative HP CONVERSION - 07/01/2012 9:42 AM ASSISTANT CUSTOMER SERVICE MANAGER Performed at [facility], [address] [place] [address] Luann Molina MD LAB_1 Performing Organization Address [facility] Phon e Number HP CONVERSION Sexually Transmitted Disease Probe (07/01/2012 9:06 AM ASSISTANT CUSTOMER SERVICE MANAGER) Component Value Ref Test Analysis Performed At [facility] gist Range Method Time Signature Chlamydia Chlamydia HP CONVERSION Trach DNA trachomatis NEGATIVE by DNA amplification GC DNA Neisseria HP CONVERSION gonorrhea NEGATIVE by DNA amplification. Specimen (Source) Anatomical Collection Method Collection Time Re ceived Time Location / / Volume Laterality Endocervical for 07/01/2012 9:06 molecular testing: AM ASSISTANT CUSTOMER SERVICE MANAGER Luann Molina MD LAB_1 Performing Organization Address [facility] Phon e Number HP CONVERSION Test (Urine) (07/01/2012 9:05 AM ASSISTANT CUSTOMER SERVICE MANAGER) Analysis Performed At Patho logist Time Signature Urine Negative HP CONVERSION Test Specimen Anatomical Collection Method Collection Time Receive d Time (Source) Location / / Volume Laterality 07/01/2012 9:05 AM 3 9:32 ASSISTANT CUSTOMER SERVICE MANAGER AM ASSISTANT CUSTOMER SERVICE MANAGER Narrative HP CONVERSION - 07/01/2012 9:38 AM ASSISTANT CUSTOMER SERVICE MANAGER Performed at [facility], [address] [place] [address] Luann Molina MD LAB_1 Performing Organization Address [facility] Phon e Number HP CONVERSION (ABNORMAL) URINE MICROSCOPIC (07/01/2012 9:05 AM ASSISTANT CUSTOMER SERVICE MANAGER) Patholo gist Method Time Signature Urine WBC 3-4 0 - 4 HP CONVERSION /HPF Urine RBC 3-4 (A) 0 - 2 HP CONVERSION /HPF Bacteria Urine Occasional (A) /HPF HP CONVERS ION Epithelial Occasional /HPF HP CONVERSION Cells Hyaline Cast 0-2 /LPF HP CONVERSION Specimen Anatomical Collection Method Collection Time Receive d Time (Source) Location / / Volume Laterality 07/01/2012 9:05 AM 3 9:32 ASSISTANT CUSTOMER SERVICE MANAGER AM ASSISTANT CUSTOMER SERVICE MANAGER Narrative HP CONVERSION - 07/01/2012 9:44 AM ASSISTANT CUSTOMER SERVICE MANAGER Performed at [facility], [address] [place] [address] Luann Molina MD LAB_1 Performing Organization Address [facility] Phon e Number HP CONVERSION (ABNORMAL) URINALYSIS ROUTINE(MICRO IF POS) (07/01/2012 9:05 AM ASSISTANT CUSTOMER SERVICE MANAGER) [facility] Method Time Signature Urine Type Urine:clean HP CONVERSION cat Turbidity Clear Clear HP CONVERSION U BILI Negative Negative HP CONVERSION Blood Urine Moderate Negative HP CONVERSION (A) Glucose, Negative Neg-30 HP CONVERSION Qualitative U mg/dL Ketones 15 (A) Negative HP CONVERSION Leukocyte Trace (A) Negative HP CONVERSION Esterase Urine Nitrite Urine Negative Negative HP CONVERSION pH Urine 6.0 5.0 - 8.0 HP CONVERSION Protein Urine Negative Neg - Trace HP CONVERSION mg/dL U Specific 1.020 1.005 - HP CONVERSION [place] 1.030 Urobilinogen Negative Negative HP CONVERSION Urine Eu/dL Specimen Anatomical Collection Method Collection Time Receive d Time (Source) Location / / Volume Laterality Urine: 07/01/2012 9:05 AM 3 9:32 ASSISTANT CUSTOMER SERVICE MANAGER AM ASSISTANT CUSTOMER SERVICE MANAGER Narrative HP CONVERSION - 07/01/2012 9:44 AM ASSISTANT CUSTOMER SERVICE MANAGER Performed at [facility], [address] [place] [address] Luann Molina MD LAB_1 Performing Organization Address [facility] Phon e Number HP CONVERSION documented in this encounter Visit Diagnoses Diagnosis Abdominal pain, unspecified site Bacterial vaginosis Vaginitis and vulvovaginitis, unspecifie d Triage Assessment Note - Madeleine Reyes RN - 07/01/2012 8:18 AM CST C/o of nausea x one week, gen abd pain for a week. Now pain increased on left side of abd. Also somechills, spotting between periods. Pt treated for uti last week. Stopped bcp 2 weeks ago due to nausea. Had finished pack and tried one pill of new pack. STANT CUSTOMER SERVICE MANAGER documented in this encounter
--- OUTSIDE RECORDS SUMMARY | 2021-12-06 21:47 | XMS_ITS | Encounter Summary ---
:1985 Author Organization [employer] Address [address] [place] [address] Care Team Providers Name Role Phone Jeri García MD Primary Care Provider Reason for Visit Reason Comments Other Encounter Details Date Type Department Care Team Description 07/10/2008 Telephone [facility] Jannet Kaiser, Other [address] [place] [address] Social History Tobacco Use Types Packs/Day Years Used Date Smoking Tobacco: Never Alcohol Use Standard Drinks/Week Comments No 0 (1 standard drink = 0.6 oz pure alcoho l) Sex Assigned at Date Recorded Not on file documented as of this encounter [facility], Message - 07/10/2008 8:02 AM CDT Phone Note filed by [facility] at 08/18/101941 Author: [employer] Service: (none) Author Type: (none) Filed: 08/18/101941 Note Time: 07/10/08801 Status: Signed District Loss Prevention Manager: [employer] (Resource) Xray Chest * PA And Left Lateral (Standard)results are now available in Last[facility]. Created on 10Jul2008 8:02am by ROJELIO ADKINS Acknowledged by OLEG RAMIREZ on 10:15am On 14Jul2008 1:21pm JANNET KAISER wrote: Noted. Acknowledged by JANNET KAISER on 1:21pm CIRCUIT WORKER documented in this encounter Plan of Treatment Not on filedocumented as of this encounter Visit Diagnoses Not on filedocumented in this encounter Care Teams Guitar Maker Hand Relationship Specialty Start Date End Date Jeri García MD PCP - General 08/02/10 09/06/11 [address] [place] [address] documented as of this encounter
--- OUTSIDE RECORDS SUMMARY | 2021-12-06 21:47 | XMS_ITS | Encounter Summary ---
:1985 Author Organization [employer] Address [address] [place] [address] Care Team Providers Name Role Phone Unassigned, Provider Primary Care Provider Unavailable Reason for Visit Reason Comments CONGESTION Encounter Details Date Type Department Care Team Description 06/27/2008 Office Visit [facility] [place] (Primary Dx); [place] [facility] [address] [place], [place] [address] Social History Tobacco Use Types Packs/Day Years Used Date Smoking Tobacco: Never Alcohol Use Standard Drinks/Week Comments No 0 (1 standard drink = 0.6 oz pure alcoho l) Sex Assigned at Date Recorded Not on file documented as of this encounter Last Filed Vital Signs Vital Sign Reading Time Taken Comments Blood Pressure 120/80 06/27/2008 2:20 PM INVESTMENT CONSULTANT Pulse 78 06/27/2008 2:15 PM INVESTMENT CONSULTANT Temperature 36.6 ??C (97.8 ??F) 06/27/2008 2:15 PM INVESTMENT CONSULTANT Respiratory Rate 18 06/27/2008 2:15 PM INVESTMENT CONSULTANT Oxygen Saturation - - Inhaled Oxygen Concentration - - Weight 54.4 kg (120 lb) 06/27/2008 2:15 PM INVESTMENT CONSULTANT Height 176.5 cm (5' 9.5) 06/27/2008 2:15 PM INVESTMENT CONSULTANT Body Mass Index 17.47 06/27/2008 2:15 PM INVESTMENT CONSULTANT documented in this encounter Progress Notes Halima Jimenez - 06/27/2008 2:54 PM CST This office note has been dictated. Halima Jimenez MD STMENT CONSULTANT Halima Jimenez - 06/27/2008 12:00 AM INVESTMENT CONSULTANT Chief Complaint: Congestion. Subjective: Patient is a 23-year-old female who came in today because she is concerned she might have pneumonia. For the last week, she has had a number of symptoms, sore throat, some sinus congestion, a temp up to 100. She felt very tired and she has had some coughing. This now developed into some chest pain. She does feel some postnasal drainage also and she complains of a little bit of phlegm but that is clear and it is not a lot. She has a decreased appetite. She denies getting a flu shot this year. Has not had any strep exposure. She has never had a history of asthma. She is a nonsmoker. Her medication that she has been using is a Mucinex with a cough suppressant. Objective: Nprknb-mymp-sfpa-old female who is awake, cooperative. She is tall and very thin. Temp is 97.8, blood pressure is 140/80, pulse is 70, respirations 18. Her color is good. She is normocephalic. Her TMs looks normal. Throat shows only minimal erythema. No exudate. She has no acute cervical adenopathy. Her neck is supple. She sounds a little nasally congested. Her lung sounds are clear and equal bilaterally. I do not hear any abnormal sounds. There is no wheezing. She does have an occasional cough that seems to be more of a tickle, but she coughs to clear her throat. Lab data: Rapid strep is negative. Throat culture is pending. Assessment: Upper respiratory infection, cough, pharyngitis. Plan: Recommend the patient continue using akzu-ina-pxuoffk medications, get lots of rest, take some fluids. If her throat culture is positive, will notify her and start her on antibiotic. At this time, I think it is more viral and if she has increasing symptoms, she can follow up with the primary doctor. P / A [facility] cc: STMENT CONSULTANT documented in this encounter Plan of Treatment Not on filedocumented as of this encounter Procedures Procedure Name Priority Date/Time Associated Diagnosis Comme nts STREP GRP A, RAPID Waiting 06/27/2008 2:21 PM Pharyngitis Res ults for this SCREEN INVESTMENT CONSULTANT procedure are i n the results section. documented in this encounter Results STREP GRP A, RAPID SCREEN (06/27/2008 2:21 PM INVESTMENT CONSULTANT) [facility] Method Time Signature Grp A Rapid Negative [facility] Screen Grp A Culture [facility] Final Specimen Anatomical Collection Method Collection Time Receive d Time (Source) Location / / Volume Laterality 06/27/2008 2:21 PM 200 9 2:30 INVESTMENT CONSULTANT PM INVESTMENT CONSULTANT Halima Jimenez MD LAB_1 Performing Organization Address City/State/ZIP Code Phon e Number [facility] [phone] [facility] [address] [address] documented in this encounter Visit Diagnoses Diagnosis Acute URI - Primary Acute upper respiratory infections of un specified site Pharyngitis Acute pharyngitis documented in this encounter Care Teams Nail Assembly Machine Operator Relationship Specialty Start Date End Date Unassigned, Provider PCP - General 01/31/00 08/01/10 [address] [place] [address] documented as of this encounter
--- OUTSIDE RECORDS SUMMARY | 2021-12-06 21:47 | XMS_ITS | Encounter Summary ---
:1985 Author Organization [email or web address] Address [address] [place] [address] Care Team Providers Name Role Phone Unavailable Primary Care Provider Unavailable Reason for Visit Reason Comments LEG PAIN Encounter Details Date Type Department Care Team Description 10/09/2011 [facility] Visit [facility] Chanel Herman, Leg pain (Primary Dx) [address] [place] [address] [address] [facility] [phone] [place], [place] [address] (Wo rk) Social History Tobacco Use Types Packs/Day Years Used Date Smoking Tobacco: Never Alcohol Use Standard Drinks/Week Comments No 0 (1 standard drink = 0.6 oz pure alcoho l) Sex Assigned at Date Recorded Not on file documented as of this encounter Last Filed Vital Signs Vital Sign Reading Time Taken Comments Blood Pressure 90/64 10/09/2011 11:10 AM CDT Pulse 68 10/09/2011 11:10 AM CDT Temperature - - Respiratory Rate - - Oxygen Saturation - - Inhaled Oxygen Concentration - - Weight 56.2 kg (124 lb) 10/09/2011 11:10 AM CDT Height - - Body Mass Index 18.18 09/15/2011 1:05 PM CDT documented in this encounter Progress Notes Chanel Herman PA-C - 10/09/2011 5:58 PM CDT Subjective: Chief complaint: Chief Complaint Patient presents with ??? Leg Pain Yamilet Goldman is an 26 y.o. female who presents for evaluation of the below issues in the problem list. Leg pain - Chanel Herman PA-C 10/09/11 05:58 PM Signed Patient presents to the clinic today complaining of symptoms of discomfort in her legs. One month ago she was started on oral contraceptive pills this is something that worries her. She feels like she had worsening or bleeding. Symptoms seemed to be a bit better after a few weeks of being on the pill.She has not had any redness or swelling. She has no family or personal history of blood clots. Pain does not feel deep in the calves. She has not had chest pain or shortness of breath. Blood pressure is stable. Past medical, family, and social history reviewed and updated today complete Review of Systems is negative other than stated above Medications reviewed in EMR Adverse drug reactions: Review of patient's allergies indicates no known allergies. Vital signs: BP 90/64 Pulse 68 Wt 124 lb (56.246 kg) LMP 08/02/2011 Objective: Vital Signs: BP 90/64 Pulse 68 Wt 124 lb (56.246 kg) LMP 08/02/2011 General: Pleasant female, alert, in NAD. HEENT: PERRLA, EOMI, no icterus or injection. Bilateral TM's, external canals, oropharynx normal. Neck: Supple, without thyromegaly or mass. No LAD. No JVD or carotid bruits. CV: RRR without murmurs, rubs or gallops. 2/4 radial artery and dorsalis pedis pulse bilaterally. Resp: Clear to auscultation without crackles, wheezes or distress. Lower Extremities: FROM, normal gait without edema, lesions, or deformity. No swelling or redness isnoted. No calf tenderness is noted when squeezing her calf. Assessment and plan: Yamilet was seen today for leg pain. Diagnoses and associated orders for this visit: Leg pain Follow up - Patient will continue on her oral contraceptive pills for a month. Hopefully symptoms will subside. 100% certain that this has anything to each other. She will followup p.r.n. documented in this encounter Miscellaneous Notes Assessment & Plan Note - Chanel Herman PA-C - 10/09/2011 5:58 PM CDT Patient presents to the clinic today complaining of symptoms of discomfort in her legs. One month ago she was started on oral contraceptive pills this is something that worries her. She feels like she had worsening or bleeding. Symptoms seemed to be a bit better after a few weeks of being on the pill.She has not had any redness or swelling. She has no family or personal history of blood clots. Pain does not feel deep in the calves. She has not had chest pain or shortness of breath. Blood pressure is stable. documented in this encounter Plan of Treatment Not on filedocumented as of this encounter Visit Diagnoses Diagnosis Leg pain - Primary Pain in limb documented in this encounter
--- OUTSIDE RECORDS SUMMARY | 2021-12-06 21:47 | XMS_ITS | Encounter Summary ---
:1985 Author Organization [employer] Address [address] [place] [address] Care Team Providers Name Role Phone Jeri García MD Primary Care Provider Encounter Details Date Type Department Care Team Description 08/30/2010 PN Conversion Only [facility] Jeri Stack, [address] [place] [address] [address] [phone] [place] [id number] (Wo rk) Social History Tobacco Use Types Packs/Day Years Used Date Smoking Tobacco: Never Alcohol Use Standard Drinks/Week Comments No 0 (1 standard drink = 0.6 oz pure alcoho l) Sex Assigned at Date Recorded Not on file documented as of this encounter Plan of Treatment Not on filedocumented as of this encounter Visit Diagnoses Not on filedocumented in this encounter Care Teams Internet Sales Director Relationship Specialty Start Date End Date Jeri García MD PCP - General 08/02/10 09/06/11 [place] [address] documented as of this encounter
--- OUTSIDE RECORDS SUMMARY | 2021-12-06 21:47 | XMS_ITS | Encounter Summary ---
:1985 Author Organization [employer] Address [address] [place] [address] Care Team Providers Name Role Phone Unavailable Primary Care Provider Unavailable Reason for Visit Reason Comments Medication Questions Encounter Details Date Type Department Care Team Description 06/25/2012 Telephone [facility] Chanel Herman, Medication Questions [address] [facility] [place], [place] [phone] [address] [facility] [phone] [place], [place] [address] (Wo rk) Social History Tobacco Use Types Packs/Day Years Used Date Smoking Tobacco: Never Alcohol Use Standard Drinks/Week Comments No 0 (1 standard drink = 0.6 oz pure alcoho l) Sex Assigned at Date Recorded Not on file documented as of this encounter Nursing Notes Rubia Braxton LPN - 06/26/2012 7:12 AM CST Message left for the pt with Dr. Cm's advice. ESS PREPARER Apolonia Cm MD - 06/25/2012 8:34 PM CST Please call Yamilet: I'm covering for Chanel. I sent a prescription for a different pill to her pharmacy. The nausea is usually from estrogen, and this new pill has less estrogen. Some people have more breakthrough bleedingwith lower doses of estrogen - taking it at the same time every night is important to minimize breakthrough bleeding. She should let us know if she has any issues. ESS PREPARER Luann Suarez RN - 06/25/2012 3:30 PM CST Action requested: Medication Request Additional Info: Spoke with pt. Is on sprintec, reports having nausea last few months that is progressively getting worse. Reports she has always taken medication at night and would feel nausea in the morning reports it is now lingering throughout the day, no vomiting. Pt is requesting an rx for a diff erent control that would have less side effects. Pharmacy correct. Please call Yamilet Goldman([facility]) [phone] () c vm y ESS PREPARER Kiley Ndiaye - 06/25/2012 3:23 PM CST Pt calling to speak to nurse/ about changing control medication due to nausea from existingmedication. ESS PREPARER documented in this encounter Plan of Treatment Not on filedocumented as of this encounter Visit Diagnoses Not on filedocumented in this encounter
--- OUTSIDE RECORDS SUMMARY | 2021-12-06 21:47 | XMS_ITS | Encounter Summary ---
:1985 Author Organization [facility] Address [address] [place] [address] Care Team Providers Name Role Phone Jeri García MD Primary Care Provider Reason for Visit Reason Comments Other Encounter Details Date Type Department Care Team Description 04/26/2005 Telephone [facility] [address] [facility], Message Other [address] [employer] [place] [address] [place], [place] [phone] Social History Tobacco Use Types Packs/Day Years Used Date Smoking Tobacco: Never Assessed Sex Assigned at Date Recorded Not on file documented as of this encounter Progress Notes Conversion, [facility] - 04/26/2005 11:49 AM CST Phone Note filed by [facility] Conversion at 08/15/102329 Author: [facility] Conversion Service: (none) Author Type: (none) Filed: 08/15/102329 Note Time: 04/26/05 1149 Status: Signed Materials Clerk: Imr Conversion Benzaclin not covered per pt..can you try a P.A? Has [facility]..uses [facility] in [place] [phone] Created on 26Apr2005 11:49am by ABAD CHRISTINA On 26Apr2005 12:54pm GERARDO COLLIER wrote: Deep available? Acknowledged by GERARDO COLLIER on 12:54pm On 26Apr2005 3:01pm JACKELYN FERMIN wrote: going to send prior auth for Benzaclin. Acknowledged by JACKELYN FERMIN on 3:01pm Acknowledged by ABAD CHRISTINA on 3:39pm On 24Aug2005 9:12am PRABHJOT VARGAS wrote: Prior auth for Benzaclin was denied. 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
--- OUTSIDE RECORDS SUMMARY | 2021-12-06 21:47 | XMS_ITS | Encounter Summary ---
:1985 Author Organization [facility] Address [address] [place] [address] Care Team Providers Name Role Phone Unavailable Primary Care Provider Unavailable Encounter Details Date Type Department Care Team Description 07/01/[address] [address] Scan [address] [place], [place] [address] Social History Tobacco Use Types Packs/Day Years [...]
--- OUTSIDE RECORDS SUMMARY | 2021-12-06 21:47 | XMS_ITS | Encounter Summary ---
:1985 [facility] Address [address] [place] [address] Care Team Providers Name Role Phone Jeri García MD Primary Care Provider Encounter Details Date Type Department Care Team Description 07/09/2008 PN Conversion Only SCAR[facility]O CONVERSIO N Lidia Aquino APRN, [id number] [employer] [place] [id number] [facility] [place], [place] [address] (Wo rk) Social History Tobacco Use Types Packs/Day Years Used Date Smoking Tobacco: Never Alcohol Use Standard Drinks/Week Comments No 0 (1 standard drink = 0.6 oz pure alcoho l) Sex Assigned at Date Recorded Not on file documented as of this encounter Plan of Treatment Not on filedocumented as of this encounter Procedures Procedure Name Priority Date/Time Associated Comments Diagnosis STOOL CULTURE Routine 07/09/2008 4:36 PM Results for this CDT procedure are i n the results section. ELECTROLYTES (NA, K, Routine 07/09/2008 2:50 PM R esults for this CL, BICARB) CDT procedure are i n the results section. PARVOVIRUS B19 IGG & Routine 07/09/2008 2:50 PM R esults for this IGM ANTIBODIES CDT procedure are in the results section. MONONUCLEOSIS SCREEN Routine 07/09/2008 2:50 PM R esults for this CDT procedure are i n the results section. HEPATITIS B SURFACE Routine 07/09/2008 2:50 PM Re sults for this ANTIBODY CDT procedure are i n the results section. HEP B SURFACE ANTIGEN, Routine 07/09/2008 2:50 PM Results for this NO REFLEX CDT procedure are i n the results section. CREATININE / GFR Routine 07/09/2008 2:50 PM Resul ts for this CDT procedure are i n the results section. COMPLETE BLOOD Routine 07/09/2008 2:50 PM Results for this COUNT-W/DIFF CDT procedure are i n the results section. URINALYSIS Routine 07/09/2008 2:32 PM Results f or this ROUTINE(MICRO IF POS) CDT proced ure are in the results section. URINALYSIS MICROSCOPIC Routine 07/09/2008 2:32 PM Results for this CDT procedure are i n the results section. URINE CULTURE Routine 07/09/2008 2:32 PM Results for this CDT procedure are i n the results section. documented in this encounter Results Stool Culture (07/09/2008 4:36 PM CDT) Analysis Performed At Patho logist Time Signature Stool Culture SEE TEXT HP CONVERSION Comment: Patient: YAMILET DAILY Culture, Stool ?Collected: ??[id number] ??[id number] Source: Stool ? Processed: ?2055 ? SENS Final Report ------ ?[id number] ??[id number] No Salmonella, Shigella, Campylobacter o r E coli O157 isolated Culture screened for Aeromonas, Plesiomo hung and Vibrio with negative results. If Yersinia is suspected, please submit a second culture and request for this organism. Specimen (Source) Anatomical Collection Method Collection Time Re ceived Time Location / / Volume Laterality 07/09/2008 4:36 PM CDT Lidia Aquino APRNNAWAF LAB_1 Performing Organization Address [facility] Code Phon e Number HP CONVERSION Mononucleosis Screen (07/09/2008 2:50 PM CDT) [employer] Method Time Signature Infectious Negative Negative HP CONVERSION Mononucleosis Screen Specimen (Source) Anatomical Collection Method Collection Time Re ceived Time Location / / Volume Laterality 07/09/2008 2:50 PM CDT Lidia Aquino APRNNAWAF LAB_1 Performing Organization Address [facility] Code Phon e Number HP CONVERSION (ABNORMAL) Complete Blood Count-W/Diff (07/09/2008 2:50 PM CDT) [employer] Method Time Signature White Blood Cell 5.4 3.8 - 11.0 HP CONVERSIO N Count K/cmm Red Blood Cell 5.08 3.70 - HP CONVERSION Count 5.20 m/cmm Hemoglobin 15.0 11.8 - HP CONVERSION 15.5 gm/dL Hematocrit 44.6 35.0 - HP CONVERSION 46.0 % Mean Corpuscular 87.9 80.0 - HP CONVERSION Volume 100.0 fl Mean Corpuscular 29.6 27.0 - HP CONVERSION Hemoglobin 34.0 pg Mean Corpuscular 33.7 32.0 - HP CONVERSION Hemoglobin Conc 36.5 gm/dL Hall RDW 12.3 11.0 - HP CONVERSION 15.0 % Platelet Count 245 140 - 450 HP CONVERSION k/cmm Differential Auto-Dif No normal HP CONVERSION Verify range Neutrophils 2.4 2.0 - 7.5 HP CONVERSION Absolute Count K/cmm Neutrophil 45.0 (L) 50.0 - HP CONVERSION 75.0 % Lymphocyte % 42.3 (H) 20.0 - HP CONVERSION 40.0 % Monocyte 9.4 5.0 - 14.0 HP CONVERSION % Eosinophil 2.8 0.0 - 6.0 HP CONVERSION % Basophil % 0.5 0.0 - 2.0 HP CONVERSION % Specimen (Source) Anatomical Collection Method Collection Time Re ceived Time Location / / Volume Laterality 07/09/2008 2:50 PM CDT Lidia Aqunio NAWAF K[facility]ARA LAB_1 Performing Organization Address [facility] Phon e Number HP CONVERSION Creatinine / GFR (07/09/2008 2:50 PM CDT) athologist Signature Creatinine 0.9 0.4 - 1.3 HP CONVERSION Serum mg/dL Est GFR >60 >60 HP CONVERSION Am Comment: -Kosovan and Efe-Entamgf-Dzoqwlw n reference range units: mL/min/1.73m2 Normal>60, moderate decrease 30 - 59, se mirta decrease 15 - 29, renal failure <15 mL/min/1.73 m2 NOTE: Choose the eGFR result above appro priate for the race of the patient. Est GFR Non-Afr Am >60 >60 HP CONVERSI ON Specimen (Source) Anatomical Collection Method Collection Time Re ceived Time Location / / Volume Laterality 07/09/2008 2:50 PM CDT Lidia Kenia KAMARA CNP LAB_1 Performing Organization Address [facility] Phon e Number HP CONVERSION Electrolytes (NA, K, CL, Bicarb) (07/09/2008 2:50 PM CDT) athologist Signature Sodium 140 137 - 147 HP CONVERSION mEq/L Potassium 3.8 3.5 - 5.2 HP CONVERSION mEq/L Chloride 105 98 - 110 HP CONVERSION mEq/L Bicarbonate 30 23 - 33 HP CONVERSION mmol/L Specimen (Source) Anatomical Collection Method Collection Time Re ceived Time Location / / Volume Laterality 07/09/2008 2:50 PM CDT Lidia Kenia KAMARA CNP LAB_1 Performing Organization Address [facility] Phon e Number HP CONVERSION Parvovirus B19 Igg & Igm Antibodies (07/09/2008 2:50 PM CDT) athologist Signature Parvovirus B19 4.37 IV HP CONVERSION IgG Antibody Comment: REFERENCE INTERVAL: Parvovirus B19 Antib lexi, IgG ??0.89 IV or less .......... Negative - No significant ? level of detectable Parvovirus ? B19 IgG antibody. ??0.90 - 1.10 IV ........... Equivocal - Repeat testing in ? 10-14 days may be helpful. ??1.11 IV or greater ....... Positive - IgG antibody to ? Parvovirus B19 detected which ? may indicate a current or ? past infection. The best evidence for current infection is a significant change on two appropriately timed specim ens, where both tests are done in the same laboratory at the same time. Parvovirus B19 IgM Antibody 0.42 IV HP CONVERSION Comment: REFERENCE INTERVAL: Parvovirus B19 Antib lexi, IgM ??0.89 IV or less .......... Negative - No significant ? level of detectable Parvovirus ? B19 IgM antibody. ??0.90 - 1.10 IV ........... Equivocal - Repeat testing in ? 10-14 days may be helpful. ??1.11 IV or geater ........ Positive - IgM antibody to ? Parvovirus B19 detected which ? may indicate a current or ? recent infection. However, low ? levels of IgM antibodies may ? occasionally persist for more ? than 12 months post-infection. The best evidence for current infection is a significant change on two appropriately timed specim ens, where both tests are done in the same laboratory at the same time. Appearance of an IgM antibody response n ormally occurs 7 to 14 days after the onset of disease. Testing immediately post-exposure is of no value without a later convalescent specimen. A residual IgM re sponse may be distinguished from early IgM response to infection by testing sera from patients three to four weeks later for changing levels of specific IgM antibodi es. Performed at [facility] [address] [place] [id number] Specimen (Source) Anatomical Collection Method Collection Time Re ceived Time Location / / Volume Laterality 07/09/2008 2:50 PM CDT Lidia Aquino APRN, CNP LAB_1 Performing Organization Address [facility] Phon e Number HP CONVERSION Hepatitis B Surface Antibody (07/09/2008 2:50 PM CDT) Analysis Performed At Patho logist Time Signature Hep B Surf Ab Non Reac Non Reac HP CONVERSION Specimen (Source) Anatomical Collection Method Collection Time Re ceived Time Location / / Volume Laterality 07/09/2008 2:50 PM CDT Lidia Aquino APRN, CNP LAB_1 Performing Organization Address [facility] Phon e Number HP CONVERSION Hep B Surface Antigen, No Reflex (07/09/2008 2:50 PM CDT) Analysis Performed At [facility] Time [facility] Hep B Surf Ag Negative Negative HP CONVERSION Specimen (Source) Anatomical Collection Method Collection Time Re ceived Time Location / / Volume Laterality 07/09/2008 2:50 PM CDT Lidia Kenia KAMARA CNP LAB_1 Performing Organization Address [facility] Phon e Number HP CONVERSION Urine Culture (07/09/2008 2:32 PM CDT) Analysis Performed At [facility] Time [facility] Urine Culture SEE TEXT HP CONVERSION Comment: Patient: YAMILET DAILY Culture, Urine ?Collected: ??[id number] ??[id number] Source: Clean Ca ?Processed: ??[id number] ??[id number] ? 1V Final Report ------ ?[id number] ??[id number] <10,000 CFU/mL gram negative andrez No further workup Specimen (Source) Anatomical Collection Method Collection Time Re ceived Time Location / / Volume Laterality 07/09/2008 2:32 PM CDT Lidia Kenia KAMARA CNP LAB_1 Performing Organization Address [facility] Phon e Number HP CONVERSION (ABNORMAL) Urinalysis Routine(Micro If Pos) (07/09/2008 2:32 PM CDT) [facility] Method Time Signature Turbidity Clear No normal HP CONVERSION range pH Urine 5.5 4.5 - 7.5 HP CONVERSION Protein Urine Negative Neg-Trac HP CONVERSION Glucose, Negative Neg-Trac HP CONVERSION Qualitative U Ketones Negative Negative HP CONVERSION U BILI Negative Negative HP CONVERSION Blood Urine Trace (A) Negative HP CONVERSION Nitrite Urine Negative Negative HP CONVERSION Leukocyte Negative Negative HP CONVERSION Esterase Urine Urobilinogen Negative 0.2 - 1.0 HP CONVERSION Urine U Specific 1.015 1.005 - 25 HP CONVERSION [place] Specimen (Source) Anatomical Collection Method Collection Time Re ceived Time Location / / Volume Laterality 07/09/2008 2:32 PM CDT Lidia Aquino APRN, CNP LAB_1 Performing Organization Address [facility]/ZIP Code Phon e Number HP CONVERSION (ABNORMAL) Urinalysis Microscopic (07/09/2008 2:32 PM CDT) [facility] Method Time Signature White Blood 0-2/HPF 0 - 3 HP CONVERSION Cells Urine Red Blood 0-2/HPF 0 - 2 HP CONVERSION Cells Urine Bacteria Urine Occassnl (A) None HP CONVERSIO N Epithelial Few Few /HPF HP CONVERSION Cells Specimen (Source) Anatomical Collection Method Collection Time Re ceived Time Location / / Volume Laterality 07/09/2008 2:32 PM CDT Lidia Aquino APRN, CNP LAB_1 Performing Organization Address City/State/ZIP Code Phon e Number HP CONVERSION documented in this encounter Visit Diagnoses Not on filedocumented in this encounter Care Teams Glaciologist Relationship Specialty Start Date End Date Jeri García MD PCP - General 08/02/10 09/06/11 [address], [place] [address] documented as of this encounter
--- OUTSIDE RECORDS SUMMARY | 2021-12-06 21:47 | XMS_ITS | Encounter Summary ---
:1985 Author Organization [facility] Address [address] [place] [address] Care Team Providers Name Role Phone Jeri García MD Primary Care Provider Encounter Details Date Type Department Care Team Description 01/08/2003 PN Conversion Only [facility] Jeri Stack, [address] [place] [address] [address] [phone] [place] [id number] (Wo rk) Social History Tobacco Use Types Packs/Day Years Used Date Smoking Tobacco: Never Assessed Sex Assigned at Date Recorded Not on file documented as of this encounter Progress Notes Jeri García MD - 01/08/2003 12:01 AM CDT Progress Notes signed by Jeri García MD at 01/12/03 1979 Author: Jeri García MD Service: (none) Author Type: Physician Filed: 08/18/10 0828 Note Time: 01/08/03 0001 Status: Signed Financial Analyst Accountant: Jeri García MD (Physician) NAME: YAMILET DAILY MR: [id number] ACCT: [id number] VISIT: [id number] DICTATING CLINICIAN: JERI GARCÍA MD JOB: [id number] CLINIC PROGRESS NOTE DATE OF VISIT: 01/08/2003 SUBJECTIVE: Reason for visit: Abdominal pain. Razzqpbg-xbcu-jjz here one month ago with one weeks worth of abdominal pain, decreased appetite, and extreme fatigue. Was diagnosed with urinary tract infection on 12/11. Symptoms seemed to disappear after three day course of Cipro 250 b.i.d. A culture was done of that urine a few days after it was given and that was negative. She now reports return of the abdominal discomfort over the last week. Notes two days worth of fatigue and two days worth of decreased appetite. Has occasional discomfort in her back. Denies any fevers. Has not had any nausea or vomiting. No vaginal discharge. Has never been sexually active. Right now this is during her menstrual cycle. She was just after the menstrual cycle last time. She has had no trauma. Says her stools have been a bit looser than before, but not diarrhea. There has been no blood or mucus. In two weeks she heads to [facility]. ??There is?? a concern about the recurrent abdominal pain. She is here with mom today. Wants to make sure nothing else is wrong. PAST MEDICAL HISTORY: Essentially unremarkable. PAST SURGICAL HISTORY: None. She takes no routine medications, except for started her malaria pills this week. ADR/ALLERGIES: HAS NO DRUG ALLERGIES. OBJECTIVE: VS: BP: 110/74. P: 70. Wt: 115. Well-appearing young woman. HEENT EXAM: Completely normal. HEART: Regular. No murmurs, rubs are noted. LUNGS: Clear bilaterally. ABDOMEN: Soft and flat. Minimally tender in the left lower quadrant. No rebound or guarding. No masses. No hepatosplenomegaly. Bimanual exam is done today. Tender on the anterior pelvis, presumably bladder. There is no cervical motion tenderness. No adnexal fullness or tenderness. An UA today shows 5-9 WBCs, 10-15 RBCs reported to me by the lab, moderate blood, trace leukocyte esterase, few bacteria, and moderate epithelial cells. A culture is pending. ASSESSMENT: A presumed urinary tract infection. PLAN: Because this did not clear as well last time I have raised the dose of the antibiotic, Cipro 500 b.i.d. times seven days until she is leaving for [facility] and we hate to miss something else brewing. An abdominal and pelvic CT is also scheduled. It is okay per the patient that her mom call and get these results. TT: CT: [id number] C: 01/08/03 23:02 DOCUMENT: [id number] Phone Note, Clinician - 01/02/2003 12:01 AM CDT Phone Note signed by AGUILA Zeng at 02/13/04 1635 Author: Clinician Phone Note Service: (none) Author Type: Resource Filed: 01/08/03 0000 Note Time: 01/02/03 0001 Status: Signed Financial Analyst Accountant: Clinician Phone Note (Resource) TO: XAVIER DIOR FROM: RHONDA MCGINNIS RN [phone] * PROVIDER MESSAGE: ROUTINE * 01/02/03 10:51AM * *WITHIN 4 HOURS * MESSAGE: Mom calling say her daughter * HOME PHONE:[phone] * is going to [facility] in a few * CONTACT PHONE:[phone] * weeks for 3 months time. She needs * Pt or Mom Leqeen * malaria pills. * PHARMACY: [phone] * SUBJECTIVE: * yumiko reyes * ALLERGIES/SENSITIVITIES... nkda CURRENT MEDICATIONS... none per Mom PERTINENT PAST HISTORY... WEIGHT: PATIENT IS NOT . PATIENT IS NOT NURSING. ASSESSMENT: rx for malaria pills PLAN: DISPOSITION: NO DISPOSITION GIVEN CALL BY RHONDA MCGINNIS RN 01/02/2003 10:48AM [phone] ADDENDUM: <> 01/02/2003 01:51PM by NADEEN BASS: Per Radha Gomez RN REHAB DIRECTOR, Lariam 250mg as directed. #19 with no refill called to [facility] at [phone]. Recommend calling the Travel clinic to check on immunizations needed or visit www.cdc.gov. Mother notified. STANCE COORDINATOR Phone Note, Clinician - 12/15/2002 12:01 AM CDT Phone Note filed by Clinician Phone Note at 08/16/10 0476 Author: Clinician Phone Note Service: (none) Author Type: Resource Filed: 08/16/10 1155 Note Time: 12/15/02 0001 Status: Signed Financial Analyst Accountant: Clinician Phone Note (Resource) TO: XAVIER DIOR FROM: JAY MEDINA [id number] * PROVIDER MESSAGE: ROUTINE * 12/15/02 08:55AM * *WITHIN 4 HOURS * MESSAGE: Patient's mom calling in * HOME PHONE:[phone] * today to see if the UA results from * CONTACT PHONE:[phone] * her appointment on 12/11/02 with * Ok to leave (Genesis) mom. * Xavier are in. Please call and advise mom if they are in. SUBJECTIVE: ALLERGIES/SENSITIVITIES... NKA 11/06/00 Not verified 12/15/02 CURRENT MEDICATIONS... None 11/06/00 Not verified 12/15/02 PERTINENT PAST HISTORY... Healthy 11/06/00 Not verified 12/15/02 WEIGHT: OMITTED ASKING ABOUT . OMITTED ASKING ABOUT NURSING. ASSESSMENT: test results PLAN: DISPOSITION: NO DISPOSITION GIVEN CALL BY JAY MEDINA 12/15/2002 08:52AM [id number] ADDENDUM: <> 12/15/2002 01:20PM by RADHA ROSEN: Pt was notified that her lab results so far are normal. The culture of her urine was missed somehow so it was just ordered today. Pt requests that we notify her mother with the results when they are in. Pt was notified that the culture may not be very accurate since the sample was from , They requested it be done anyway. <> 12/16/2002 11:14AM by BOBBY BRAVO LPN: Notified of normal culture results. STANCE COORDINATOR Xavier Braun PA-C - 12/11/2002 12:01 AM CDT Progress Notes signed by Xavier Braun PA-C at 12/23/02 1421 Author: Xavier Braun PA-C Service: (none) Author Type: Physician Forest Ecology Professor Filed: 08/18/10 1627 Note Time: 12/11/02 0001 Status: Signed Financial Analyst Accountant: Xavier Braun PA-C (Physician Forest Ecology Professor) NAME: YAMILET DAILY MR: [id number] ACCT: [id number] VISIT: [id number] DICTATING CLINICIAN: ROCIO COSME JOB: [id number] CLINIC PROGRESS NOTE DATE OF VISIT: 12/11/2002 SUBJECTIVE: : 1985. This 17-year-old is brought today by her mother for evaluation of multiple and somewhat vague symptoms for the last week. She said that she first noticed having some lower quadrant abdominal pain, pretty much suprapubic in nature bilateral off and on, and then it started radiating into the lower back with no other aches or pains. Those symptoms have lessened but are still present, but now she has become very tired. She is just not feeling well in general. About four days ago, she first started noticing abnormal sensation of heart beating, and it seemed to come up into her throat. She does not think that it feels like it has been beating too fast or irregularly, but it feels very abnormal. She has had no shortness of breath or chest pain. She has been feeling more headaches in the back of her head. No documented fevers at home. No heartburn. She has been feeling very nauseated and had no vomiting. She has had no diarrhea, no constipation, no blood in her stools or in her urine. No urinary symptoms. No temperature intolerance. No joint swelling or skin rashes. No sore throat, runny nose, or cough. No treatments tried, other than Sprite and Tums for a couple of days, both with no help. Appetite has been decreased. Weight has been stable. The remainder of a complete review of systems is negative. OBJECTIVE: Pleasant, alert, oriented. She does not appear uncomfortable but does look tired. Bilateral TMs, EACs clear. Eyes: PERRLA. No scleral icterus. Oropharynx is moist. Posterior pharynx without erythema, tonsillar hypertrophy or exudates. NECK: Supple. No adenopathy. No thyromegaly. LUNGS: Clear. HEART: Regular rate and rhythm. No murmurs, gallops, or rubs in a seated or supine position. She has no jugular venous distention. Abdomen is flat, soft, with right lower quadrant tenderness. No organomegaly or masses palpable. No CVA tenderness. Vaginal exam is not performed today. UA shows 5-9 WBCs per high-powered field, some blood in the urine, and moderate leukocyte esterase. Culture is pending. WBCs normal at 4.4. Hemoglobin normal at 14.2. Rhythm strip is done, showing no arrhythmias, tachycardia, or bradycardia. EKG shows normal sinus rhythm without acute ST or T wave changes. TSH, electrolytes, and hemoglobin A1c are pending. ASSESSMENT: 1. UTI. 2. Heart palpitation. PLAN: Given Cipro 250 mg one p.o. b.i.d. x 3 days. Push fluids. Culture results pending. She will be notified with any abnormal lab test results of those pending. If all labs are normal and this should continue over the next week, then would certainly have her contact us and consider echocardiogram and/or Holter monitor. They are in agreement with this plan. Will call or return as needed. FINAL IMPRESSION: 1. UTI. 2. Heart palpitation. TT: CT: [id number] C: 12/11/02 15:18 DOCUMENT: [id number] Radha Ogden - 09/10/2002 12:01 AM CDT Progress Notes signed by AGUILA Zeng at 01/22/04 5923 Author: AGUILA Zeng Service: (none) Author Type: Nurse Practitioner Filed: 08/18/10 9320 Note Time: 09/10/02 0001 Status: Signed Financial Analyst Accountant: AGUILA Zeng (Nurse Practitioner) NAME: YAMILET DAILY MR: [id number] ACCT: [id number] VISIT: [id number] DICTATING CLINICIAN: RADHA GOMEZ NP JOB: [id number] CLINIC PROGRESS NOTE DATE OF VISIT: 09/10/2002 SUBJECTIVE: Chief Complaint: A 17-year-old female presents with two- to three-day history of runny nose, nasal congestion of yellow-green drainage, pressure in her upper cheek area and forehead area and along the eyebrows. No sore throat, cough. She does note a mild fever. Describes her headache as mainly in the frontal area and back of the head. Using abuf-mzp-gptukkc Tylenol Sinus yesterday and aspirin for one dose with some good relief of the headache, but not really as much for the pressure. She does have a previous history of sinus infections. No history of allergies. Nonsmoker. MEDICATIONS: None. ADR/ALLERGIES: NKDA. NO LATEX ALLERGY. She is a student at [employer]. One sister sick at home with similar symptoms. Regarding headache, it is not light or noise sensitive. No previous history of headaches. OBJECTIVE: VS: BP: 104/76. T: 97.9 orally. Wt: 118 lb. GENERAL: An alert, well-developed female, nontoxic appearance, NAD. CONJUNCTIVAE: Clear. Bilateral TMs and Canals: Clear. Nares: Patent, congested, left more than right, mildly erythematous with clear coryza. No pain with palpation over the frontal or maxillary sinuses. No periorbital swelling. Oropharynx: Moist, no erythema. NECK: Supple. No adenopathy. RESPIRATORY: Lungs: Clear. CARDIAC: RRR. No murmur. ASSESSMENT: URI with sinusitis, suspect viral etiology. PLAN: Symptomatic treatment measures, rest, push fluids. Entex PSE one p.o. b.i.d. for the next three days, then p.r.n. Recommended salt water nasal spray and saline lavage, which she has also done in the past. Tylenol or ibuprofen p.r.n. pain or fever. Advised patient if her symptoms are generally worsening by the end of this week, she may call and will treat empirically with antibiotic. For now, trial of symptomatic treatment measures. She is in agreement with the above. FINAL IMPRESSION: URI with sinusitis, suspect viral etiology. TT: CT: [id number] C: 09/11/02 16:08 DOCUMENT: [id number] STANCE COORDINATOR Xavier Braun PA-C - 07/09/2002 12:01 AM CST Progress Notes signed by Xavier Braun PA-C at 07/16/02 1126 Author: Xavier Braun PA-C Service: (none) Author Type: Physician Forest Ecology Professor Filed: 08/18/10 1357 Note Time: 07/09/022053 Status: Signed Financial Analyst Accountant: Xavier Braun PA-C (Physician Forest Ecology Professor) NAME: YAMILET DAILY MR: [id number] ACCT: [id number] VISIT: [id number] DICTATING CLINICIAN: ROCIO COSME JOB: [id number] CLINIC PROGRESS NOTE DATE OF VISIT: 07/09/2002 SUBJECTIVE: : 1985. Chart Number: [id number]. This 17-year-old presents today with one week of upper respiratory infection symptoms. She believes that she may have a sinus infection. She did have a cough, and that cleared up. Has had a stuffy nose, a lot of sinus pressure over the last couple of days. Her mucus has now turned green. No fevers or chills. No toothache. She is experiencing constant facial pain and headache at this point. Sudafed helps only a little bit. She is generally healthy. CURRENT MEDICATIONS: Sudafed. ADR/ALLERGIES: NONE. LATEX SENSITIVITIES: NONE. TOBACCO USE: None. OBJECTIVE: VS: BP: 120/72. T: 97.7. Wt: 115 lb. She appears mildly ill, in no acute distress. Bilateral TMs, EACs clear. She has frontal and maxillary sinus tenderness bilaterally, greater on the right than the left. Nasal mucosa is erythematous and boggy. Oropharynx is moist. Posterior pharynx shows postnasal drainage. Neck is supple with adenopathy. Lungs are clear. HEART: Regular rate and rhythm. No murmurs, gallops, or rubs. ASSESSMENT: Acute sinusitis. PLAN: Given amoxicillin 500 mg one p.o. t.i.d. x 14 days. Also given Entex PSE one p.o. b.i.d. p.r.n. Advised to take this one hour prior to flight as she is leaving for [place] tomorrow. Lots of fluids, warm compresses to the sinus areas, steamy baths and showers to help with drainage. Return to clinic as needed for continued or worsening symptoms. FINAL IMPRESSION: Acute sinusitis. TT: CT: [id number] C: 07/10/02 20:33 DOCUMENT: [id number] Nghia Salas - 09/20/2001 12:01 AM CDT Progress Notes signed by at 06/21/02 0001 Author: Nghia Stringer MD Service: (none) Author Type: Physician Filed: 08/18/10 0713 Note Time: 09/20/012053 Status: Signed Financial Analyst Accountant: Nghia Stringer MD (Physician) IMPRESSION: Acute sinusitis. SUBJECTIVE: Patient is an 16-year-old female, presents with three week history of upper respiratory symptoms. Started as a typical cold with clear nasal drainage, scratchy throat, nasal congestion. Seemed to improve but now the last week she has had left frontal sinus pain, pressure, no drainage, no cough, no sore throat. Low grade fever and chills. She does not smoke. No history of seasonal allergies that she is aware of. MEDICATIONS: None. ADR/ALLERGIES: NONE. PAST MEDICAL HISTORY: Unremarkable. PAST SURGICAL HISTORY: None. OBJECTIVE: VS/GEN: BP: 110/70. Ht: 5 ft 9-1/4 in. Wt: 110 lb. Patient alert, no acute distress. HEENT: Tympanic membranes clear. Throat noninflamed, noninjected. There is some frontal sinus tenderness on the left side present. Clear nasal mucosa. NECK: Supple. No adenopathy. LUNGS: Clear to auscultation throughout. CV: Regular rhythm rate with S1, S2. ASSESSMENT: Acute sinusitis. PLAN: Cephalexin 500 mg t.i.d. times 10 days. Nasal saline irrigation recommended. Sudafed p.r.n. for pressure. Patient should follow up in 10 days time if symptoms not resolved. TT: CT: KOURTNEY:[id number] C: DOCUMENT: [id number] STANCE COORDINATOR Conversion, [facility] - 06/17/2001 12:01 AM CST Progress Notes signed by at 06/21/022053 Author: Imr Conversion Service: (none) Author Type: (none) Filed: 08/18/10 0457 Note Time: 06/17/012053 Status: Signed Financial Analyst Accountant: Shelley Conversion IMPRESSION: Postviral cough versus bronchitis. SUBJECTIVE: This 16-year-old female is here today with her mother, complaint of cough. Three weeks ago she started with typical cold symptoms : Congestion, rhinorrhea, postnasal drip, cough without fever. Patient states that she went to her healthcare clinic at school. Was diagnosed with a virus and given amoxicillin. Most of her cold symptoms have improved. Still has a little bit of congestion, but concern is that her chest hurts with cough. Cough is still somewhat productive but does not think it is a purulent sputum. She has had no fever. She does not smoke. No history of any chronic respiratory problems. MEDICATIONS: None. ADR/ALLERGIES: NONE. OBJECTIVE: VS/Gen: BP: 112/82. T: 97.4. Wt: 114 lb. Pleasant young girl, appears healthy and well. HEENT: TMs: Normal landmarks. Eyes: Sclerae white. Conjunctivae pink and moist. Nose and oropharynx patent and clear. NECK: Without adenopathy. No thyromegaly. LUNGS: Clear throughout, without rales, rhonchi, wheezing. CV: Regular rate and rhythm, sharp S1, S2. No murmurs. Chest x-ray appears normal. ASSESSMENT: Postviral cough versus bronchitis. PLAN: Discussed with her and her mother options for antibiotic treatment. Certainly could be developing a bacterial component of bronchitis; however, they were more or less concerned that her pain with coughing represented a significant infection like pneumonia. Reassured at this point there is no pneumonia. Could wait and observe the cough, that it may go away over the next one or two weeks, and if develops fever or has purulent sputum, would be re-seen or call for antibiotic, and that is the route they chose to take. Follow up p.r.n. TT: CT: TIFFANIET:[id number] C: DOCUMENT: [id number] SCHEDULED RESOURCE: ALEKS BREEN / ROCIO STANCE COORDINATOR Conversion, [facility] - 11/06/2000 12:01 AM CDT Phone Note signed by at 11/06/00 5976 Author: [facility] Conversion Service: (none) Author Type: (none) Filed: 08/18/10 0007 Note Time: 11/06/002053 Status: Signed Financial Analyst Accountant: Shelley Conversion IMPRESSION: Need order for shot TO: MARY MENDOZA FROM: CJ YEPEZ RN [phone] * PROVIDER MESSAGE: RETURN * 11/06/00 12:48PM * CALL REQUESTED * MESSAGE: Genesis (mom) calling. * HOME PHONE:[phone] * Yamilet will be going to [place] at * CONTACT PHONE:[phone] * the end of the month and would like * Genesis * to know what shots Yamilet would be needing. Mom has scheduled Yamilet for a Hep A shot for tomorrow and would like an order but would like to get other shots for Yamilet if needed for the trip to [place]. Mom would like a call back. SUBJECTIVE: ALLERGIES/SENSITIVITIES... NKA 11/06/00 CURRENT MEDICATIONS... None 11/06/00 PERTINENT PAST HISTORY... Healthy 11/06/00 WEIGHT: OMITTED ASKING ABOUT . OMITTED ASKING ABOUT NURSING. ASSESSMENT: Need order for shot PLAN: DISPOSITION: NO DISPOSITION GIVEN CALL BY CJ YEPEZ RN 11/06/2000 12:45PM [phone] ADDENDUM: <> 11/06/2000 03:04PM by RADHA PIRES LPN: may have Hepatitis A as injection only per Dr Mendoza. mom does not want child to receive the Hep B at this time. Jeri Meza MD - 06/30/1999 12:01 AM CST Progress Notes signed by Jeri García MD at 07/04/99 0809 Author: Jeri García MD Service: (none) Author Type: Physician Filed: 08/17/10 1553 Note Time: 06/30/99 0001 Status: Signed Financial Analyst Accountant: Jeri García MD (Physician) IMPRESSION: Sinusitis. SUBJECTIVE: REASON FOR VISIT: Sinus pain. A 14-year-old girl here with her mom complaining of right sided maxillary sinus tenderness. It has been present for about one week. She was seen here in late March and had a sinus infection at that time. The pressure and drainage resolved, but she has retained some congestion in the area since that time. The last week, however, a pressure and green discharge has returned. Her throat feels somewhat irritated with postnasal drip but denies a true sore throat. She is not coughing now. She is feeling somewhat chilled and achy but has not had any temperatures. She is eating okay. Energy is slightly decreased. 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 She has been taking Sudafed twice a day and Afrin at night to help her with her symptoms. She otherwise takes no routine medications and has no drug allergies. OBJECTIVE: BP: 108/78. Wt: 116 pounds. Pulse: 60. Well-appearing young woman. HEENT: Conjunctivae are clear. Tympanic membranes and external canals are clear. Oropharynx is moist without lesions or erythema. Neck is supple without lymphadenopathy or thyromegaly. Heart is regular without murmurs or rubs. Lungs are clear bilaterally. There is maxillary sinus tenderness on the right hand side. ASSESSMENT: Sinusitis. PLAN: Discussed good decongestion with Sudafed, Advil, or Tylenol for sinus. Also a prescription for Septra 1 tab po bid for 14 days given. :[id number] C: DOCUMENT: [id number] STANCE COORDINATOR Nghia Stringer - 04/20/1999 12:01 AM CST Progress Notes signed by Nghia Stringer MD at 04/21/99 1733 Author: Nghia Stringer MD Service: (none) Author Type: Physician Filed: 08/17/10 1445 Note Time: 04/20/99 0001 Status: Signed Financial Analyst Accountant: Nghia Stringer MD (Physician) IMPRESSION: Acute sinusitis. SUBJECTIVE: Patient is a 14-year-old female who presents with one-month history of sinus congestion and pressure. Notes pain and discomfort right side, above her eye. Has had thick yellow-green nasal drainage and sinus congestion over the last 3-4 weeks. No fever or chills. No cough. No sore or irritated throat. No history of allergies or rhinitis. MEDICATIONS: None. ALLERGIES: None. OBJECTIVE: BP: 104/70. T: 97.3. WT: 120 pounds. Tympanic membranes clear. Throat not inflamed, not injected. Nose: Irritated nasal mucosa with thick yellow drainage present. Tender over the right frontal sinuses. Lungs clear to auscultation throughout. ASSESSMENT: Acute sinusitis. PLAN: Cephalexin 500 mg bid x 10 days. Sinusitis guideline given to patient. Recommended nasal saline irrigation. Follow up in 10 days' time if symptoms not resolved. [facility]:[id number] C: DOCUMENT: [id number] STANCE COORDINATOR Fernando [facility] - 02/26/1997 12:01 AM CST Phone Note signed by at 02/26/97 0804 Author: Shelley King Service: (none) Author Type: (none) Filed: 08/17/10 0149 Note Time: 02/26/97 0001 Status: Signed Financial Analyst Accountant: Shelley King IMPRESSION: Sore Throat-(Child)-Nurse Guidelines - TREATING PROVIDER: YAKELIN CARUSO - Appointment made with YAKELIN Garcia HOME PHONE: [phone] * SHADY Feb 26 1997 10:20AM SUBJECTIVE: PATIENT COMPLAINS OF... Sore throat> 5 days duration. Sx. x 3 days, mom requesting appt. today. Child notes severe ST, and swollen neck glands. Afebrile, no cough or cold sx. Mom unsure if throat is red or has white spots. ; ALLERGIES/SENSITIVITIES... NKA 02/26/97 CURRENT MEDICATIONS... None 02/26/97 PERTINENT PAST HISTORY... Healthy 02/26/97 ASSESSMENT: Sore Throat-(Child)-Nurse Guidelines DISPOSITION: SEMI-URGENT PATIENT IS NOT ; PATIENT IS NOT NURSING; PLAN: RECOMMENDED THE FOLLOWING... Referenced guideline Sore Throat-(Child)-Nurse Guidelines. Schedule appointment with provider within 24-48 hours. -Give acetaminophen or ibuprofen as directed -Have child gargle with salt water or ice water -Have child use hard candies, ice or cough drops to soothe throat if > age 8 -Encourage liquids: 8-10 regular glasses each day. Juice and water are best. Cool beverages or warm liquids are most soothing. -Encourage soft foods or flavored frozen desserts -Encourage extra rest so the body can use it's natural resources to recuperate -Improve room humidity with a cool mist vaporizer Patient information given per Sore Throat nurse guidelines. INFORMED PATIENT TO CALLBACK IF... -Breathing or swallowing becomes difficult -Any other questions or concerns Call taken by BRODIE GARRETT, RN [phone] 02/26/1997 07:55 AM ADDENDUM: STANCE COORDINATOR Yakelin Caruso MD - 02/26/1997 12:01 AM CST Progress Notes signed by Yakelin Caruso MD at 03/04/97 1513 Author: Yakelin Caruso MD Service: (none) Author Type: Physician Filed: 08/17/10 0149 Note Time: 02/26/97 0001 Status: Signed Financial Analyst Accountant: Yakelin Caruso MD (Physician) IMPRESSION: Pharyngitis. SUBJECTIVE: Yamilet Daily is a 12-year-old who comes in having started with a sore throat about three or four days ago, and now she has started to get some sore lymph nodes in her neck. She has had a little rhinorrhea but that is improving. Just occasional cough. She is not sure if she has been around anyone with strep. She has developed a little nausea. Adverse Drug Reactions: None. OBJECTIVE: WT: 114 pounds. In general, she is an alert 12-year-old in no acute distress. TMs were clear. Oropharynx was mildly injected. Neck was supple with come precervical lymphadenopathy. Lungs were clear to auscultation. ASSESSMENT: Pharyngitis. PLAN: I did do a throat culture. If that is positive, will treat her with a full course of Pen-Vee K. In the meantime, I did give her samples of Ceftin 250 mg, take 1 twice a day for the next 24 hours until the throat culture results are back. 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 (2) Benign-appearing nevus, right upper back. SUBJECTIVE: Yamilet Daily is a 11-year-old here for moles on her back and her left leg. She has had the mole on the back for a couple of years, but mother notes one minute area where there is a little asymmetry. There is no family history of melanoma. The lesion on her left leg has been present for at least approximately ten years or so and has not changed appreciably in size. They are concerned, however, because there are little light patches that are now present within this spot. OBJECTIVE: On exam, on the patient's right upper back is a 4 x 4 mm light brown frambesiform papule. In general it is well circumscribed and even colored. There is only one minute area where there is a hint of any scalloping. On her left anterior tibial surface is a 1.1 x 0.7 cm oval-shaped, medium brown macule, well circumscribed. There are some flecks of skin-colored to slight hypopigmentation within this area giving it a speckled egg appearance. Otherwise fairly symmetric. ASSESSMENT: 1. Probable congenital nevus on left anterior tibial surface. Clinically this looks benign, but because of the history of change and the concern, it was elected to obtain a 3 mm punch biopsy to get a better idea of the diagnosis. 2% Lidocaine with epinephrine was used for local anesthesia and a 3 mm punch biopsy was obtained with 4-0 closure x 1. Antibacterial ointment, Band- Aid, and wound care instructions were given. They choose to remove the suture themselves in one week. I discussed with them prior to the procedure the risks of bleeding, infection, scarring, rare side effects of local anesthesia and recurrence. 2. Benign-appearing nevus on right upper back. Reassurance given. Reviewed the warning signs of melanoma, the need for sun protection, monthly self-skin exams. Return for any suspicious changes. PLAN: N/A. lap STANCE COORDINATOR Conversion, [facility] - 07/10/1996 12:01 AM CST Phone Note signed by at 07/10/96 104 Author: Imr Conversion Service: (none) Author Type: (none) Filed: 08/16/10 9923 Note Time: 07/10/96 0001 Status: Signed Financial Analyst Accountant: Shelley King IMPRESSION: Nail Abnormality TO: MARY MENDOZA FROM: JACKELYN OSBORN RN [phone] * PROVIDER MESSAGE: ROUTINE * 07/10/96 10:40AM * *WITHIN 4 HOURS * MESSAGE: Please call if there is * HOME PHONE:[phone] * something she could do for this at * CONTACT PHONE:[phone] * home. * mom-Genesis * SUBJECTIVE: * PHARMACY: [facility] * CHIEF CONCERN... Onset with pain mid April and soreness and purulent drainage; seemed to heal with occasional discomfort. Now notes R Ring Fingernail seems to have a vertical ridge extending from the base (initially only half way down) and appears to have a vertical split once the nail has grown out. Occasionally wears georgian and false nails. No crumbling, yellow, or thickened nails. ALLERGIES/SENSITIVITIES... NKDA 07/10/96 CURRENT MEDICATIONS... none 07/10/96 PERTINENT PAST HISTORY... healthy 07/10/96 WEIGHT: PATIENT IS NOT . PATIENT IS NOT NURSING. ASSESSMENT: Nail Abnormality PLAN: DISPOSITION: NO DISPOSITION GIVEN CALL BY JACKELYN OSBORN RN 07/10/1996 10:36AM [phone] ADDENDUM: Jennifer Wolf APRN, CNP - 01/17/1996 12:01 AM CDT Progress Notes signed by Jennifer Beasley APRN, CNP at 01/22/96 9801 Author: LALI Ag Service: (none) Author Type: Nurse Practitioner Filed: 08/16/102053 Note Time: 01/17/96 0001 Status: Signed Financial Analyst Accountant: LALI Ag (Nurse Practitioner) IMPRESSION: Healthy almost 11-year-old. SUBJECTIVE: Yamilet is an almost 11-year-old in for routine care. She has been healthy, well and really comes in only for her shots. She is home schooled, and Mom described her as an excellent student. She has friends in the neighborhood and some other family friends through confucianism. She enjoys biking, rollerblading and walks frequently. She is in an intact family with three siblings whom she gets along well with. She exercises 1-3 times per week and watches very little TV. She had her first menses last month. She is not sexually active and has not experimented with drugs or alcohol. Adverse drug reactions: None. REVIEW OF SYSTEMS: Completely negative. FAMILY HISTORY: Significant for paternal grandfather who suffered his first heart attack at 42 and at 62 of lung cancer. There also is a paternal tendency toward elevated cholesterol. Dad has recently found out his was 240. PAST MEDICAL HISTORY: Negative for hospitalizations, surgeries, injuries or allergies. OBJECTIVE: HT: 68 in (above 95th percentile). WT: 112 lb (75th percentile). BP: 112/76. Yamilet is a tall, beautiful adolescent girl with good social skills, although is somewhat shy. She is nicely groomed. HENT exam is negative. Heart, lungs and abdomen are normal. Jose Luis stage II for development of breast and pubic hair. Back is straight. Skin clear. Brisk deep tendon reflexes. ASSESSMENT: Healthy almost 11-year-old. PLAN: MMR and DT booster. Reviewed and consent signed. Encouraged hepatitis B; however, Mom declined that at this time. Positive reinforcement given for her healthy lifestyle. She will return at 13 years for her next check. nbs Mary Mendoza MD - 10/09/1994 12:01 AM CDT Progress Notes signed by Mary Mendoza MD at 10/12/94 1940 Author: Mary Mendoza MD Service: (none) Author Type: Physician Filed: 08/16/10 9110 Note Time: 10/09/94 0001 Status: Signed Financial Analyst Accountant: Mary Mendoza MD (Physician) IMPRESSION: Rash behind left ear. SUBJECTIVE: Yamilet comes in today for a rash behind her left ear lobe. Mom says she had this last summer as well. This seems to be a chronic condition for her at times with a crease where the earlobe meets the face will crack and become irritated. This spreads out onto her cheek a little bit as well. She has minimal itching or pain in the area. OBJECTIVE: She appears to have some seborrheic dermatitis in the crease of the ears with a small fissure where the earlobe meets the cheek. ASSESSMENT: Seborrheic dermatitis with possible staph infection. PLAN: Discussed careful cleansing of the area and careful rinsing of soap and shampoo and using hydrocortisone cream for the rash, Bacitracin, or another antibiotic ointment if the skin become broken down. Return to clinic or call if there are increasing problems of it this is not resolving. documented in this encounter Plan of Treatment Not on filedocumented as of this encounter Procedures Procedure Name Priority Date/Time Associated Diagnosis Comme nts XR CHEST PA WITH Routine 06/17/2001 1:18 PM Resul ts for this LATERAL ASSISTANCE COORDINATOR procedure are i n the results section. documented in this encounter Results XR Chest PA With Lateral (06/17/2001 1:18 PM ASSISTANCE COORDINATOR) Anatomical Region Laterality Modality Other Specimen (Source) Anatomical Location Collection Method / Collectio n Time Received Time / Laterality Volume Impressions 06/17/2001 1:18 PM ASSISTANCE COORDINATOR : ?NORMAL CHEST. FINDINGS: ?CH1 ?THE CARDIOVASCULAR STRUCTURES APPE AR NORMAL. ?NO EVIDENCE OF ACTIVE PULMONARY DI SEASE. TECH-ID : ? VV TRANS-ID: Narrative 06/17/2001 1:18 PM ASSISTANCE COORDINATOR CLINICAL DATA: ?COUGH Procedure Note Jesse Escobar - 07/06/2016 CLINICAL DATA: COUGH IMPRESSION : NORMAL CHEST. FINDINGS: CH1 THE CARDIOVASCULAR STRUCTURES APPEAR NO RMAL. NO EVIDENCE OF ACTIVE PULMONARY DISEASE . TECH-ID : VV TRANS-ID: Aleks Breen PARene RAD GD documented in this encounter Visit Diagnoses Not on filedocumented in this encounter Care Teams Car Salter Relationship Specialty Start Date End Date Jeri García MD PCP - General 08/02/10 09/06/11 [address] [place] [address] documented as of this encounter
--- OUTSIDE RECORDS SUMMARY | 2021-12-06 21:47 | XMS_ITS | Encounter Summary ---
:1985 Author Organization [facility] Address [address] [place] [address] Care Team Providers Name Role Phone Megan García MD Primary Care Provider Encounter Details Date Type Department Care Team Description 07/28/2004 Office Visit Megan Malcolm MD [facility] [address] [facility] [place] [address] [place] [address] [place] [address] [phone] (Wo rk) Social History Tobacco Use Types Packs/Day Years Used Date Smoking Tobacco: Never Assessed Sex Assigned at Date Recorded Not on file documented as of this encounter Last Filed Vital Signs Vital Sign Reading Time Taken Comments Blood Pressure 132/86 07/28/2004 2:17 PM AQUATIC HABITAT BIOLOGIST Pulse 80 07/28/2004 2:17 PM AQUATIC HABITAT BIOLOGIST Temperature - - Respiratory Rate - - Oxygen Saturation - - Inhaled Oxygen Concentration - - Weight 54.4 kg (119 lb 15.9 oz) 07/28/2004 2:17 PM AQUATIC HABITAT BIOLOGIST C: 54.4kg Height - - Body Mass Index - - documented in this encounter Progress Notes Megan García MD - 07/28/2004 12:01 AM CST Progress Notes signed by Megan García MD at 08/01/04 0742 Author: Megan García MD Service: (none) Author Type: Physician Filed: 08/19/10 0510 Note Time: 07/28/04 0001 Status: Signed Accounting/Finance Tutor: Megan García MD (Physician) NAME: YAMILET DAILY MR: [id number] ACCT: [id number] VISIT: [id number] DICTATING CLINICIAN: MEGAN GARCÍA MD JOB: [id number] CLINIC PROGRESS NOTE DATE OF VISIT: 07/28/2004 SUBJECTIVE: Reason for visit: Acne. A 19-year-old here for acne. I saw her two months ago. Also noted hirsutism and irregular periods, although certainly not overweight by any stretch. We tried Zovia , and she had no change of her acne during the active pills, and actually got much worse just prior to her period. Periods actually did straighten out. She was on Retin-A MicroGel 0.04% at some point. She found it too drying when she tried it a year ago. Got it back out about five weeks ago and thinks it is helping the blackheads. Wonders if she could try her Minocin again. She thinks that was helpful for the inflammatory lesions. CURRENT MEDICATIONS: Zovia and Retin-A Micro 0.04%. ADR/ALLERGIES: SHE HAS NO DRUG ALLERGIES. OBJECTIVE: VS: BP: 132/86. P: 80. Wt: 120. She appears well. Still with significant open and closed comedones, moderate amount of inflammation. ASSESSMENT: PLAN: Continue her Retin-A Micro 0.04. Add Minocin 100 at bedtime. When well-controlled, can go down to 50. Add Ortho Tri-Cyclen oral contraceptives to start this Sunday, as her period is today. If not notably improved, return here in two to three months. SP:[id number] C: 07/29/04 07:48 DOCUMENT: [id number] documented in this encounter Plan of Treatment Not on filedocumented as of this encounter Visit Diagnoses Not on filedocumented in this encounter Care Teams Field Placement Director Relationship Specialty Start Date End Date Megan García MD PCP - General 08/02/10 09/06/11 [address] [place] [address] documented as of this encounter
--- OUTSIDE RECORDS SUMMARY | 2021-12-06 21:47 | XMS_ITS | Encounter Summary ---
:1985 Author Organization [facility] Address [address] [place] [address] Care Team Providers Name Role Phone Unavailable Primary Care Provider Unavailable Encounter Details Date Type Department Care Team Description 10/02/2011 Notes/Orders [facility] Angeles Beltran [facility] [place] [address] Social History Tobacco Use Types Packs/Day Years [...]
--- OUTSIDE RECORDS SUMMARY | 2021-12-06 21:48 | XMS_ITS | Encounter Summary ---
:1985 Author Organization [email or web address] Address [address] [place] [address] Care Team Providers Name Role Phone Jeri García MD Primary Care Provider Encounter Details Date Type Department Care Team Description 12/11/2002 PN Conversion Only [place] CONVERSION Mariano Braun [facility] [address] [place] [address] [place] [address] (Wo rk) Social History Tobacco Use Types Packs/Day Years Used Date Smoking Tobacco: Never Assessed Sex Assigned at Date Recorded Not on file documented as of this encounter Plan of Treatment Not on filedocumented as of this encounter Procedures Procedure Name Priority Date/Time Associated Comments Diagnosis ELECTROLYTES (NA, K, Routine 12/11/2002 12:10 Res ults for this CL, BICARB) PM CDT procedure are i n the results section. THYROID STIMULATING Routine 12/11/2002 12:10 Resu lts for this HORMONE PM CDT procedure are i n the results section. URINALYSIS COMPLETE Routine 12/11/2002 12:10 Resu lts for this PM CDT procedure are i n the results section. COMPLETE BLOOD Routine 12/11/2002 12:10 Results f or this COUNT-NO DIFF PM CDT procedure are in the results section. HGB A1C Routine 12/11/2002 12:10 Results for this PM CDT procedure are i n the results section. documented in this encounter Results Complete Blood Count-No Diff (12/11/2002 12:10 PM CDT) P athologist Signature White Blood Cell 4.4 3.8 - 11.0 HP CONVERSIO N Count K/cmm Red Blood Cell 4.72 3.70 - HP CONVERSION Count 5.20 m/cmm Hemoglobin 14.2 11.8 - HP CONVERSION 15.5 gm/dL Hematocrit 42.1 35.0 - HP CONVERSION 46.0 % Mean Corpuscular 89.1 80.0 - HP CONVERSION Volume 100.0 fl Mean Corpuscular 30.1 27.0 - HP CONVERSION Hemoglobin 34.0 pg Mean Corpuscular 33.7 32.0 - HP CONVERSION Hemoglobin Conc 36.5 gm/dL [place] RDW 12.3 11.0 - HP CONVERSION 15.0 % Platelet Count 207 140 - 450 HP CONVERSION k/cmm Specimen (Source) Anatomical Collection Method Collection Time Re ceived Time Location / / Volume Laterality 12/11/2002 12:10 PM CDT Mariano Braun PA-C LAB_1 Performing Organization Address City/[facility] Code Phon e Number HP CONVERSION (ABNORMAL) Urinalysis Complete (12/11/2002 12:10 PM CDT) Patholo gist Method Time Signature Glucose, Negative Neg-Trac HP CONVERSION Qualitative U Protein Urine Negative Neg-Trac HP CONVERSION Ketones Negative Negative HP CONVERSION U BILI Negative Negative HP CONVERSION U Specific 1.010 1.005 - 25 HP CONVERSION [place] Blood Urine Small (A) Negative HP CONVERSION pH Urine 7.0 4.5 - 7.5 HP CONVERSION Urobilinogen Negative 0.2 - 1.0 HP CONVERSION Urine Nitrite Urine Negative Negative HP CONVERSION Leukocyte Moderate Negative HP CONVERSION Esterase Urine (A) White Blood 5-9/HPF (A) 0 - 3 HP CONVERSION Cells Urine Red Blood Cells 3-4/HPF (A) 0 - 2 HP CONVERSIO N Urine Bacteria Urine Few (A) None HP CONVERSION Epithelial Cells Moderate Few /HPF HP CONVERSION Specimen (Source) Anatomical Collection Method Collection Time Re ceived Time Location / / Volume Laterality 12/11/2002 12:10 PM CDT Mariano Braun PA-C LAB_1 Performing Organization Address [facility] Phon e Number HP CONVERSION Electrolytes (NA, K, CL, Bicarb) (12/11/2002 12:10 PM CDT) athologist Signature Chloride 104 98 - 110 HP CONVERSION meq/L Bicarbonate 28 23 - 33 HP CONVERSION mmol/L Sodium 142 137 - 147 HP CONVERSION meq/L Potassium 4.2 3.5 - 5.2 HP CONVERSION meq/L Specimen (Source) Anatomical Collection Method Collection Time Re ceived Time Location / / Volume Laterality 12/11/2002 12:10 PM CDT Mariano Lugo Aparna SAVAGE LAB_1 Performing Organization Address City/[facility] Phon e Number HP CONVERSION Thyroid Stimulating Hormone (12/11/2002 12:10 PM CDT) athologist Signature Thyroid 0.95 0.20 - HP CONVERSION Stimulating 5.50 Hormone uIU/mL Specimen (Source) Anatomical Collection Method Collection Time Re ceived Time Location / / Volume Laterality 12/11/2002 12:10 PM CDT Mariano Lugo Aparna CHAN-Joesph LAB_1 Performing Organization Address [facility] Code Phon e Number HP CONVERSION Hgb A1c (12/11/2002 12:10 PM CDT) athologist Signature HGB A1C 4.8 <6.0 % HP CONVERSION Specimen (Source) Anatomical Collection Method Collection Time Re ceived Time Location / / Volume Laterality 12/11/2002 12:10 PM CDT Mariano Lugo Aparna CHAN-Joesph LAB_1 Performing Organization Address [facility] Code Phon e Number HP CONVERSION documented in this encounter Visit Diagnoses Not on filedocumented in this encounter Care Teams Clinical Technician Relationship Specialty Start Date End Date Jeri García MD PCP - General 08/02/10 09/06/11 [address] [place] [address] documented as of this encounter
--- OUTSIDE RECORDS SUMMARY | 2021-12-06 21:48 | XMS_ITS | Encounter Summary ---
:1985 Author Organization [facility] Address [address] [place] [address] Care Team Providers Name Role Phone Jeri García MD Primary Care Provider Encounter Details Date Type Department Care Team Description 12/11/2002 PN Conversion Only [place] CONVERSION Radha Landin, MANAGER MOBILITY, [address] [place] [address] [address] [phone] (Wo rk) Social History Tobacco Use Types Packs/Day Years Used Date Smoking Tobacco: Never Assessed Sex Assigned at Date Recorded Not on file documented as of this encounter Plan of Treatment Not on filedocumented as of this encounter Procedures Procedure Name Priority Date/Time Associated Diagnosis Comme nts URINE CULTURE Routine 12/11/2002 1:56 PM Results for this CDT procedure are i n the results section . documented in this encounter Results Urine Culture (12/11/2002 1:56 PM CDT) Analysis Performed At Patho logist Time Signature Urine Culture SEE TEXT HP CONVERSION Comment: Patient: YAMILET DAILY Culture, Urine @ ?Collected: ??[id number] ??[id number] Source: Clean Ca ?Processed: ??[id number] ??[id number] ? DO SENSI Final Report ------ ?[id number] ??[id number] No growth @ = URINE CULTURE Performed at ??[address] [place], [place] ?[address] Specimen (Source) Anatomical Collection Method Collection Time Re ceived Time Location / / Volume Laterality 12/11/2002 1:56 PM CDT Radha Landin MANAGER MOBILITY, [employer] SUPERVISOR LAB_1 Performing Organization Address City/State/ZIP Code Phon e Number HP CONVERSION documented in this encounter Visit Diagnoses Not on filedocumented in this encounter Care Teams Relationship Consultant Relationship Specialty Start Date End Date Jeri García MD PCP - General 08/02/10 09/06/11 [address] [place] [address] documented as of this encounter
--- OUTSIDE RECORDS SUMMARY | 2021-12-06 21:48 | XMS_ITS | Encounter Summary ---
:1985 Author Organization [facility] [employer] Address [address] [place] [address] Care Team Providers Name Role Phone Jeri García MD Primary Care Provider Encounter Details Date Type Department Care Team Description 01/08/2003 PN Conversion Only AMY CONVERSION [address] [place] [address] Social History Tobacco Use Types Packs/Day Years Used Date Smoking Tobacco: Never Assessed Sex Assigned at Date Recorded Not on file documented as of this encounter Progress Notes Phone Note, Clinician - 03/09/2003 12:01 AM CST Phone Note filed by Clinician Phone Note at 08/16/10 1231 Author: Clinician Phone Note Service: (none) Author Type: Resource Filed: 08/16/10 1231 Note Time: 03/09/03 0001 Status: Signed Instrumentation And Controls Technician: Clinician Phone Note (Resource) TO: JERI GARCÍA FROM: JUAN PALMA RN [phone] * PROVIDER MESSAGE: ROUTINE * 03/09/03 01:36PM * *WITHIN 4 HOURS * MESSAGE: Mom calling. Pt. is studying * HOME PHONE:[phone] * in [facility], will be there another * CONTACT PHONE:[phone] * 6 wks . Her IBS has been under good * [facility] * control with Bentyl, there were no * PHARMACY: [phone] * refills from 01/14 phone note order. * * Mom is going down to see pt. and would like to take another rx. to her. This will be new rx. at . No need for callback. SUBJECTIVE: ALLERGIES/SENSITIVITIES... nkda 03/09/03 CURRENT MEDICATIONS... Bentyl qid prn 03/09/03 PERTINENT PAST HISTORY... IBS 03/09/03 WEIGHT: PATIENT IS NOT . PATIENT IS NOT NURSING. ASSESSMENT: Bentyl refill PLAN: DISPOSITION: NO DISPOSITION GIVEN CALL BY JUAN PALMA RN 03/09/2003 01:34PM [phone] ADDENDUM: <> 03/09/2003 02:25PM by RHONDA HYMAN BATHHOUSE ATTENDANT: Per Dr. García rx. for Bentyl 10mgs sig 1 tab po qid prn #100 with 1 refill called to pharmacy. ING MACHINE MECHANIC Phone Note, Clinician - 01/16/2003 12:01 AM CDT Phone Note filed by Clinician Phone Note at 08/16/10 6932 Author: Clinician Phone Note Service: (none) Author Type: Resource Filed: 08/16/10 1208 Note Time: 01/16/03 0001 Status: Signed Instrumentation And Controls Technician: Clinician Phone Note (Resource) TO: JERI GARCÍA FROM: ROYA GILES [phone] * PROVIDER MESSAGE: ROUTINE * 01/16/03 10:02AM * *WITHIN 4 HOURS * MESSAGE: Yamilet is calling * HOME PHONE:[phone] * requesting her ultra sound results * CONTACT PHONE:[phone] * she had that done on [place]. Please call her at [phone] SUBJECTIVE: ALLERGIES/SENSITIVITIES... nkda 01/12/03 not verified 01/16/03 CURRENT MEDICATIONS... Cipro 01/12/03 not verified 01/16/03 PERTINENT PAST HISTORY... n01/12/03 not verified 01/16/03 WEIGHT: OMITTED ASKING ABOUT . OMITTED ASKING ABOUT NURSING. ASSESSMENT: PLAN: DISPOSITION: NO DISPOSITION GIVEN CALL BY ROYA GILES 01/16/2003 10:01AM [id number] ADDENDUM: <> 01/16/2003 01:36PM by JERI CORTES BATHHOUSE ATTENDANT: Alex Quintana, normal kidney U/S. Msg lft at contact # with this info. ING MACHINE MECHANIC Phone Note, Clinician - 01/14/2003 12:01 AM CDT Phone Note filed by Clinician Phone Note at 08/16/10 1203 Author: Clinician Phone Note Service: (none) Author Type: Resource Filed: 08/16/10 1205 Note Time: 01/14/03 0001 Status: Signed Instrumentation And Controls Technician: Clinician Phone Note (Resource) TO: JERI GARCÍA FROM: ROYA GILES [phone] * PROVIDER MESSAGE: ROUTINE * 01/14/03 08:13AM * *WITHIN 4 HOURS * MESSAGE: Yamilet is still having * HOME PHONE:[phone] * pain even with the medication that * CONTACT PHONE:[phone] * she was given , her mom is wondering if there is anything else she can be taking. Please call her at [phone] SUBJECTIVE: ALLERGIES/SENSITIVITIES... nkda 01/12/03 not verified 01/14/03 CURRENT MEDICATIONS... Cipro 01/12/03 not verified 01/14/03 PERTINENT PAST HISTORY... n01/12/03 not verified 01/14/03 WEIGHT: OMITTED ASKING ABOUT . OMITTED ASKING ABOUT NURSING. ASSESSMENT: PLAN: DISPOSITION: NO DISPOSITION GIVEN CALL BY ROYA GILES 01/14/2003 08:11AM [id number] ADDENDUM: <> 01/14/2003 02:02PM by RHONDA HYMAN BATHHOUSE ATTENDANT: Per Dr. García rx for Bentyl 10mgs sig 1 tab po qid prn # 40 with no refills called to pharmacy. Mother will call office tomorrow pm to see if this will help the discomfort. States that she thinks she might have IBS so will try to R/O this. Denies nausea today, but stat es the pain is still present on the left side just above the pelvis. Pt. did go to work and is still doing her daily duties. Has u/s in the am. No problems eating or taking fluids <> 01/15/2003 11:29AM by JUAN PALMA RN: Mom calling. Abdominal pain is much improved. No nausea, vomiting or diarrhea. C/o some dizziness. Did have US today. Pt. leaving country on Sun. and wants a call as soon as results are in. [facility], mom, is at home, cell if not home. Yamielt did get on phone and she gives verbal permission for results to be given to Mom. ING MACHINE MECHANIC Phone Note, Clinician - 01/12/2003 12:01 AM CDT Phone Note filed by Clinician Phone Note at 08/16/10 1206 Author: Clinician Phone Note Service: (none) Author Type: Resource Filed: 08/16/10 1206 Note Time: 01/12/03 0001 Status: Signed Instrumentation And Controls Technician: Clinician Phone Note (Resource) TO: JERI GARCÍA FROM: JUAN PALMA RN [phone] * PROVIDER MESSAGE: ROUTINE * 01/12/03 11:10AM * *WITHIN 4 HOURS * MESSAGE: Pt. was seen 01/08. She was * HOME PHONE:[phone] * started on Cipro for UTI. Pain is * CONTACT PHONE:[phone] * improving but c/o stomach ache. Is * PHARMACY: [phone] * taking abx. with food. Would like * Amy WM * CT results from 01/09. SUBJECTIVE: ALLERGIES/SENSITIVITIES... nkda 01/12/03 CURRENT MEDICATIONS... Cipro 01/12/03 PERTINENT PAST HISTORY... 01/12/03 WEIGHT: OMITTED ASKING ABOUT . OMITTED ASKING ABOUT NURSING. ASSESSMENT: CT results PLAN: DISPOSITION: NO DISPOSITION GIVEN CALL BY JUAN PALMA RN 01/12/2003 11:09AM [phone] ADDENDUM: <> 01/12/2003 01:37PM by STAN CHAVEZ: Ok per Dr. García to schedule pt. for a R Kidney US for area of decreased perfusion seen on R lower pole of CT. Scheduled and notified. ING MACHINE MECHANIC documented in this encounter Plan of Treatment Not on filedocumented as of this encounter Procedures Procedure Name Priority Date/Time Associated Diagnosis Comme nts US RENAL W BLADDER Routine 01/15/2003 7:55 AM Res ults for this CDT procedure are i n the results section. CT PELVIS W IV CONT Routine 01/09/2003 11:03 AM R esults for this CDT procedure are i n the results section. CT ABD W IV CONT Routine 01/09/2003 11:02 AM Resu lts for this CDT procedure are i n the results section. documented in this encounter Results US Renal W Bladder (01/15/2003 7:55 AM CDT) Anatomical Region Laterality Modality Abdomen, Pelvis Other Specimen (Source) Anatomical Location Collection Method / Collectio n Time Received Time / Laterality Volume Impressions 01/15/2003 7:55 AM CDT : Anatomically normal appearing kidneys. ? ?See above discussion. [id number]/[facility] Dictating BRITTANY MONTEIRO RADIOLOGIST Narrative 01/15/2003 7:55 AM CDT HISTORY: ??Area of decreased perfusion lower pole right kidney by CT 01/09/03. Anatomically, I see no abnormalities rel ative to masses or obstruction. ??The echo pattern of the c ortex as well as the corticomedullary junction appears normal . ??In correlating with the CT scan, etiology of this focal area of dec reased perfusion is not apparent by ultrasound. ??The right campbelln ey measures approximately 9.8 cm in length and the left kidney 9.4 cm in length. ??The urinary bladder is moderately distended and show s no focal lesions. Procedure Note Brittany Post - 07/06/2016Formatting o f this note might be different from the original. HISTORY: Area of decreased perfusion low er pole right kidney by CT 01/09/03. Anatomically, I see no abnormalities rel ative to masses or obstruction. The echo pattern of the cor erna as well as the corticomedullary junction appears normal . In correlating with the CT scan, etiology of this focal area of dec reased perfusion is not apparent by ultrasound. The right kidney measures approximately 9.8 cm in length and the left kidney 9.4 cm in length. The urinary bladder is moderately distended and show s no focal lesions. IMPRESSION : Anatomically normal appearing kidneys. S ee above discussion. [id number]/[facility] Dictating BRITTANY MONTEIRO RADIOLOGIST Jeri García MD RAD US CT Pelvis W IV Cont (01/09/2003 11:03 AM CDT) Anatomical Region Laterality Modality Pelvis, Abdomen Other Specimen (Source) Anatomical Location Collection Method / Collectio n Time Received Time / Laterality Volume Narrative 01/09/2003 11:03 AM CDT The exam was performed following the previously noted oral and intravenous contrast. FINDINGS: ??There are multiple prominent follicles present on both ovaries and there is a small amount of f ree fluid present within the pelvis. ??There is no evidence of divert iculitis or appendicitis and no lymphadenopathy is noted. CONCLUSION: ??Multiple ovarian follicles with a small amount of free fluid within the pelvis. [id number] Dictating AZEEM RITCHIE RADIOLOGIST Procedure Note Azeem Escobar - 07/06/2016 The exam was performed following the pre viously noted oral and intravenous contrast. FINDINGS: There are multiple prominent f ollicles present on both ovaries and there is a small amount of f ree fluid present within the pelvis. There is no evidence of divertic ulitis or appendicitis and no lymphadenopathy is noted. CONCLUSION: Multiple ovarian follicles w ith a small amount of free fluid within the pelvis. [id number] Dictating AZEEM RITCHIE RADIOLOGIST Jeri García MD RAD CT CT Abd W IV Cont (01/09/2003 11:02 AM CDT) Anatomical Region Laterality Modality Abdomen, Pelvis Other Specimen (Source) Anatomical Location Collection Method / Collectio n Time Received Time / Laterality Volume Narrative 01/09/2003 11:02 AM CDT The exam was performed following oral and 100 cc of intravenous Optiray. FINDINGS: ??The liver, spleen, pancreas, gallbladder, and adrenals are unremarkable. ??Delayed section through the kidneys demonstrates an area of decreased perfusion in the later al cortex of the lower pole of the right kidney. ??The significance of this is uncertain. ??It does not have the appearance of pyelonephriti s and may represent an area of old ischemia. ??The left kidney is un remarkable. No retroperitoneal adenopathy is identif ied. CONCLUSION: ??Focal area of decreased pe rfusion involving the lower pole of the right kidney as described. ? ?An ultrasound may be useful in further evaluation. RI rlr [id number] Dictating AZEEM RITCHIE RADIOLOGIST Procedure Note Azeem Escobar - 07/06/2016 The exam was performed following oral an d 100 cc of intravenous Optiray. FINDINGS: The liver, spleen, pancreas, g allbladder, and adrenals are unremarkable. Delayed section through th e kidneys demonstrates an area of decreased perfusion in the later al cortex of the lower pole of the right kidney. The significance of this is uncertain. It does not have the appearance of pyelonephriti s and may represent an area of old ischemia. The left kidney is unre markable. No retroperitoneal adenopathy is identif ied. CONCLUSION: Focal area of decreased perf usion involving the lower pole of the right kidney as described. A n ultrasound may be useful in further evaluation. RI rlr [id number] Dictating AZEEM RITCHIE RADIOLOGIST Jeri García MD RAD CT documented in this encounter Visit Diagnoses Not on filedocumented in this encounter Care Teams Change Management Facilitator Relationship Specialty Start Date End Date Jeri García MD PCP - General 08/02/10 09/06/11 [address] [place] [address] documented as of this encounter
== END 2021-11-29 10:46 | disposition home or self-care (01) ==
LOC: US 10:46
PROVIDERS: Visit Provider Obstetrics & Gynecology
DX: E28.2 Polycystic ovarian syndrome (principal); D25.9 Leiomyoma of uterus, unspecified; R93.89 Abnormal findings on diagnostic imaging of other specified body structures; R10.2 Pelvic and perineal pain
CPT/HCPCS: 76830; 76856; 93976

== ENCOUNTER 2021-12-26 08:15 | Outpatient (CLI) | payer OTHER, SELFPAY ==
--- OUTSIDE RECORDS SUMMARY | 2021-12-26 08:18 | XMS_ITS | Encounter Summary ---
:1985 Author Organization [employer] Address [address] [place] [address] Care Team Providers Name Role Phone Kristine Mendez MD Primary Care Provider Reason for Visit Reason Comments RESULTS, TEST Encounter Details Date Type Department Care Team Description 01/28/2014 Telephone [facility] [address] Jimena Magaña cca, MD RESULTS, TEST Endocrinology [address] [place] [address] [place] [address] [phone] Social History Tobacco Use Types Packs/Day Years [...] on filedocumented in this encounter Care Teams Mergers And Acquisitions Associate Relationship Specialty Start Date End Date Kristine Mendez MD PCP - General 01/01/14 [address] [place] [address] documented as of this encounter
--- OUTSIDE RECORDS SUMMARY | 2021-12-26 08:18 | XMS_ITS | Encounter Summary ---
:1985 Author Organization [facility] Address [address] [place] [address] Care Team Providers Name Role Phone Kristine Mendez MD Primary Care Provider Encounter Details Date Type Department Care Team Description 01/31/2019 [facility] [address] Gaurang Carrasco MD Gastroenterology [address] [place] [address] [place] [address] [phone] Social History Tobacco Use Types Packs/Day Years [...] on filedocumented in this encounter Care Teams Operating Room Surgical Technologist Relationship Specialty Start Date End Date Kristine Mendez MD PCP - General 01/01/14 [address] [place] [address] documented as of this encounter
--- OUTSIDE RECORDS SUMMARY | 2021-12-26 08:18 | XMS_ITS | Encounter Summary ---
:1985 Author Organization [facility] Address [address] [place] [address] Care Team Providers Name Role Phone Kristine Mendez MD Primary Care Provider Encounter Details Date Type Department Care Team Description 01/02/2014 Lab Visit [facility] [address] Thyroid m ass; Laboratory Hirsutism; [facility] [place] or infrequent menstru ation; [place] [address] Thyroid nodule [phone] Social History Tobacco Use Types Packs/Day Years [...] - 01/02/2014 2:31 PM CDT Performed at [facility], [address] [place] [address] [address] Carterjuan jose [facility]_1 Performing Organization Address City/[facility]/ZIP Code Phon e Number HP CONVERSION TESTOSTERONE FREE TOTAL FEMALES AND CHILDREN (01/02/2014 1:52 PM CDT) Analysis Performed At [facility] Time Signature Testosterone 36 9 - 55 HP CONVERSION Female or ng/dL Children Comment: Total Testosterone, Females 18 years and older Premenopausal ??9-55 ng/dL Postmenopausal 5-32 ng/dL REFERENCE INTERVAL: Testosterone, LC-MS/ MS Access complete set of age- and/or gende r-specific reference intervals for this test in the [employer] Test Directory (Epoxy). Test developed and characteristics deter mined by [facility]. See Compliance Statement B : Epoxy/CS Testosterone Free Female and Child 3.6 0.8 [...] reference intervals for this test in the [facility] Test Directory (Epoxy). Sex Hormone Binding Globulin 72 30 - 135 nmol/L HP CONVERSION Comment: REFERENCE INTERVAL: Sex Hormone Binding Globulin Access complete set of age- and/or gende r-specific reference intervals for this test in the [facility] Test Directory (Epoxy). Specimen Anatomical Collection Method Collection Time Receive d Time (Source) Location / / Volume Laterality 01/02/2014 1:52 PM 4 4:10 CDT PM CDT Narrative HP CONVERSION - 01/05/2014 4:30 AM CDT Performed at [facility] [address] [place] [address] [address] Garzagian [facility]_1 Performing Organization Address City/[facility]/RUST Code Phon e Number HP CONVERSION 17 [...] - 01/06/2014 5:45 PM CDT Performed at [facility] [address] [place] [address] Lima Garzagian [facility]_1 Performing Organization Address [facility] Phon e Number HP CONVERSION ANDROSTENEDIONE (01/02/2014 1:52 PM CDT) athologist Signature Androstenedione 1.250 0.260 - HP CONVERSION 2.140 ng/mL Comment: INTERPRETIVE INFORMATION: Androstenedion e, Females 18 years and older Post-menopausal: 0.13-0.82 ng/mL REFERENCE INTERVAL: Androstenedione by T MS Access complete set of age- and/or gende r-specific reference intervals for this test in the [facility] Test Directory (Epoxy). Test developed and characteristics deter mined by [employer]. See Compliance Statement B : Epoxy/CS Specimen Anatomical Collection Method Collection Time Receive d Time (Source) Location / / Volume Laterality 01/02/2014 1:52 PM 4 5:01 CDT PM CDT Narrative HP CONVERSION - 01/04/2014 6:34 PM CDT Performed at [facility] [address] [place] [address] Jayashreeivan Kadi [facility]_1 Performing Organization Address [facility] Phon e Number HP CONVERSION DEHYDROEPIANDROSTERONE SULFATE PEDS (01/02/2014 1:52 PM CDT) Component Value Ref Test Analysis Performed At [facility] Range Method Time Signature Dehydroepiandrosterone 172 45 - 270 HP CONV ERSION Sulfate ug/dL Comment: REFERENCE INTERVAL: DHEAS Access complete set of age- and/or gende r-specific reference intervals for this test in the [facility] Test Directory (Epoxy). Specimen Anatomical Collection Method Collection Time Receive d Time (Source) Location / / Volume Laterality 01/02/2014 1:52 PM 4 5:01 CDT PM CDT Narrative HP CONVERSION - 01/04/2014 9:05 AM CDT Performed at [facility] [address] [place] [address] Lima Garzagian [facility]_1 Performing Organization Address City/State/ZIP Code Phon e Number HP CONVERSION documented in this encounter Visit Diagnoses Diagnosis Thyroid mass ([facility]C) Unspecified disorder of thyroid Hirsutism [place] or infrequent menstruation Thyroid nodule ([facility]) Nontoxic uninodular goiter documented in this encounter Care Teams Escrow Assistant Relationship Specialty Start Date End Date Kristine Mnedez MD PCP - General 01/01/14 [address] [address] [place] [address] documented as of this encounter
--- OUTSIDE RECORDS SUMMARY | 2021-12-26 08:18 | XMS_ITS | Encounter Summary ---
:1985 Author [facility] Address [address] [place] [address] Care Team Providers Name Role Phone Kristine Mendez MD Primary Care Provider Reason for Referral (Routine) - Closed Specialty Diagnoses / Procedures Referred By Contact Refer red To Contact Diagnoses Family history of colon cancer Gabriela Mcfarlane, DO Procedures Endoscopy, colon, diagnostic [address] [address] [place] [id number] Referral ID Status Reason Start Date Expiration Date Visits Requ ested Visits Authorized [id number] Closed 01/10/2019 04/10/2020 1 1 Reason for Visit (Routine) - Closed Specialty Diagnoses / Procedures Referred By Contact Refer red To Contact Diagnoses Family history of colon cancer Gabriela Mcfarlane, DO Procedures Endoscopy, colon, diagnostic [address] [address] [place] [address] Referral ID Status Reason Start Date Expiration Date Visits Requ ested Visits Authorized [id number] Closed 01/10/2019 04/10/2020 1 1 Encounter Details Date Type Department Care Team Description 02/10/2019 [facility] Jefferson Carrasco histor y of Encounter Gastroenterology MD Gabriel colon cancer Endoscopy Procedures [address] [address] [place] [address] [facility] [address] Social History Tobacco Use Types Packs/Day Years [...] Colonoscopy in 3 years, follow up polyps LY PRACTICE DOCTOR documented in this encounter Procedure Notes Jefferson [...] and oxygen saturations were monitored continuously. The [id number] was introduced through the anus and advanced [...] previously scheduled. Procedure Code(s): --- Professional --- 15253, Colonoscopy, flexible; with removal of tumor(s), polyp(s), or other lesion(s) by snare technique 44902, Colonoscopy, flexible; with directed submucosal injection(s), any substance G0500, Moderate sedation services provided by the same physician or other qualified health workforce investment act career manager performing a gastrointestinal endoscopic service that sedation supports, requiring the presence of an independent trained observer to assist in the monitoring of the patient's level of consciousness and physiological status; initial 15 minutes of intra-service time; patient age 5 years or older (additional time may be reported with 34444, as appropriate) Diagnosis Code(s): --- Professional --- Z80.0, Family history of malignant neoplasm of digestive organs D12.0, Benign neoplasm of cecum CPT copyright 2018 [employer]. All rights reserved. The codes documented in this report are preliminary and upon medical records coder review may be revised to meet current [...] turations were monitored ? continuou sly. The [id number] was ? introduce d through the anus [...] Code(s): ?? --- Professional - -- ? 51310, Co lonoscopy, flexible; with ? removal o f tumor(s), polyp(s), or ? other les ion(s) by snare technique ? 77906, Co lonoscopy, flexible; with ? directed submucosal injection(s), any ? substance ? G0500, Mo derate sedation services ? provided by the same physician or ? other [facility] health care ? professio nal performing [...] time may ? [place] [address], as ? appropria te) Diagnosis Code(s): ?? --- Professional - -- ? Z80.0, Fa sebastian history of malignant ? neoplasm of digestive organs ? D12.0, Be nign neoplasm of cecum CPT copyright 2018 [employer]. All rights reserved. The codes documented in this report are preliminary and upon medical records coder review may be revised to meet current [...] and oxygen saturations were monitored continuously. The [id number] was introduced through the anus and advanced [...] previously scheduled. Procedure Code(s): --- Professional --- 07597, Colonoscopy, flexible; with removal of tumor(s), polyp(s), or other lesion(s) by snare technique 27135, Colonoscopy, flexible; with directed submucosal injection(s), any substance G0500, Moderate sedation services provided by the same physician or other qualified health workforce investment act career manager performing a gastrointestinal endoscopic service that sedation supports, requiring the presence of an independent trained observer to assist in the monitoring of the patient's level of consciousness and physiological status; initial 15 minutes of intra-service time; patient age 5 years or older (additional time may be reported with 12705, as appropriate) Diagnosis Code(s): --- Professional --- Z80.0, Family history of malignant neoplasm of digestive organs D12.0, Benign neoplasm of cecum CPT copyright 2018 [employer]. All rights reserved. The codes documented in this report are preliminary and upon medical records coder review may be revised to meet current compliance requirements. Jefferson Carrasco MD 02/10/2019 2:30:24 PM This document has been electronically si gned. Number of Addenda: 0 Note Initiated On: 02/10/2019 2:51 PM Endoscopy Report Gabriela Mcfarlane DO PN GI PROCEDURE ORDERABLES Performing Organization Address City/State/ZIP Code Phon e Number GI (PROVATION) GI (PROVATION) [place], [place] Surgical Path - GI (02/10/2019 2:24 PM CDT) Component Value Ref Test Analysis Performed At [employer] [facility] Method Time Signature Case Report Surgical Pathology ?Case: [id number] ? 02/13/2019 [facility] Authorizing Provider: ??Jefferson Vogt MD ? Collected: ? 02/10/2019 02:24 PM ? 9:35 AM LABORATOR Y Ordering Location: ? [facility] ? Received: ?02/10/2019 04:34 PM ? CDT ? Gastroenterology Endoscopy ? Procedures ? Pathologist: ? Jesse Villa MD ? Specimen: ?Colon, cecum, CECUM ? FINAL A. Colon, cecum, CECUM, polypectomy: [facility] Electronically DIAGNOSIS ?? Sessile serrated adenoma (s) 9:35 AM LABORATORY signed by CDT Gabriel Villa MD on 01/28 at 9:35 AM Gross A. The specimen is received in formalin and labeled with the patient's name and Colon, cecum, CECUM. The specimen consists of three landeros, flattened tissue fragments ranging from 0.3 cm to 1.5 cm in gre 02/13/2019 [facility] Description atest dimension. The largest fragment is bisected and the tissue is entirely submitted in one block. AW 9:35 AM LABOR ATORY CDT Clinical Polyp 02/13/2019 [facility] Information 9:35 AM LABORATORY CDT Microscopic Microscopic 02/13/2019 [facility] Description examination is 9:35 AM LABORATORY performed. CDT Embedded 02/13/2019 [facility] Images 9:35 AM LABORATORY CDT Specimen Anatomical Collection Method Collection Time Receive d Time (Source) Location / / Volume Laterality Tissue COLON STRUCTURE / 02/10/2019 2:24 PM 01/28 4:34 Unknown CDT PM CDT Jefferson Carrasco MD LAB PATHOLOGY Performing Organization Address City/State/ZIP Code Phon e Number [facility] [address] [place] [address] documented in this encounter Visit Diagnoses Diagnosis [...] 0203 documented in this encounter Care Teams Regional Operations Director Relationship Specialty Start Date End Date Kristine Mendez MD PCP - General 01/01/14 [address] [place] [address] documented as of this encounter
--- OUTSIDE RECORDS SUMMARY | 2021-12-26 08:18 | XMS_ITS | Encounter Summary ---
:1985 Author Organization [facility] Address [address] [place] [address] Care Team Providers Name Role Phone Kristine Mendez MD Primary Care Provider Reason for Referral (Routine) - Closed Specialty Diagnoses / Procedures Referred By Contact Refer red To Contact Diagnoses Family history of colon cancer Gabriela Mcfarlane DO Procedures Endoscopy, colon, diagnostic [address] [address] [place] [address] Referral ID Status Reason Start Date Expiration Date Visits Requ ested Visits Authorized [id number] Closed 01/10/2019 04/10/2020 1 1 Reason for Visit Reason Comments Annual Exam Encounter Details Date Type Department Care Team Description 01/10/2019 Office Visit [facility] Gabriela Mcfarlane physical exam (Primary Dx); Services-ANIMAL ECOLOGIST M, DO Pap smear for cervical cancer screening; [address] [facility], [address] [place] gu history of colon cancer [address] [place] [address] [phone] (Wo rk) Social History Tobacco Use Types [...] Mcfarlane, DO - 01/10/2019 10:00 AM CDT [facility] Chief Complaint: Routine health [...] Procedure Laterality Date ??? WISDOM TEETH EXTRACTION White Washer Piler Hx: Last Pap smear: 2013 History of [...] turations were monitored ? continuou sly. The [id number] was ? introduce d through the anus [...] Code(s): ?? --- Professional - -- ? 97355, Co lonoscopy, flexible; with ? removal o f tumor(s), polyp(s), or ? other les ion(s) by snare technique ? 51541, Co lonoscopy, flexible; with ? directed submucosal injection(s), any ? substance ? G0500, Mo derate sedation services ? provided by the same physician or ? other [facility] care ? professio nal performing a [...] time may ? be report ed with [address], as ? appropria te) Diagnosis Code(s): ?? --- Professional - -- ? Z80.0, Fa sebastian history of malignant ? neoplasm of digestive organs ? D12.0, Be nign neoplasm of cecum CPT copyright 2018 [employer]. All rights reserved. The codes documented in this report are preliminary and upon creative services specialist review may be revised to meet current [...] and oxygen saturations were monitored continuously. The [id number] was introduced through the anus and advanced [...] previously scheduled. Procedure Code(s): --- Professional --- 66073, Colonoscopy, flexible; with removal of tumor(s), polyp(s), or other lesion(s) by snare technique 76640, Colonoscopy, flexible; with directed submucosal injection(s), any substance G0500, Moderate sedation services provided by the same physician or other qualified health child care associate performing a gastrointestinal endoscopic service that sedation supports, requiring the presence of an independent trained observer to assist in the monitoring of the patient's level of consciousness and physiological status; initial 15 minutes of intra-service time; patient age 5 years or older (additional time may be reported with 87921, as appropriate) Diagnosis Code(s): --- Professional --- Z80.0, Family history of malignant neoplasm of digestive organs D12.0, Benign neoplasm of cecum CPT copyright 2018 [employer]. All rights reserved. The codes documented in this report are preliminary and upon creative services specialist review may be revised to meet current compliance requirements. Jefferson Carrasco MD 02/10/2019 2:30:24 PM This document has been electronically si gned. Number of Addenda: 0 Note Initiated On: 02/10/2019 2:51 PM Endoscopy Report Gabriela GOLDBERG GI PROCEDURE ORDERABLES Performing Organization Address City/State/ZIP Code Phon e Number GI (PROVATION) GI (PROVATION) [place], [place] HPV with 16 18 Genotyping (01/10/2019 10:37 AM CDT) [facility] Method Time Signature HPV High Risk Not Detected Not detected 01/14/2019 [facility] Type 16 PCR 2:10 PM CDT LABORATORY Comment: F;NONE HPV High Risk Not Detected Not Detected 01/14/2019 2:10 PM [facility] Type 18 PCR CDT Comment: F;NONE HPV High Risk Not Detected Not detected 01/14/2019 2:10 PM [facility] Other Than CDT 16/18 Comment: F;NONE Specimen Anatomical Collection Method Collection Time Receive d Time (Source) Location / / Volume Laterality Cervical Broom ENTIRE ENDOCERVIX 01/10/2019 10:37 12/29 / Unknown AM CDT 10:42 AM CDT Narrative [facility] - 01/14/2019 2:10 P M CDT [...] and its pe rformance characteristics determined by [facility]. It has not been cleared or approved by the FDA. The laboratory ??is required under CLIA as qualified to perform high-complexity kim ting. This test is used for clinical purposes. It should not be regarded as investigational or for research. Gabriela Mcfarlane DO LAB_1 Performing Organization Address City/State/ZIP Code Phon e Number [facility] [address] [place] [address] PAP Test (01/10/2019 10:37 AM CDT) Component Value Ref Test Analysis Performed At [facility] Method Time Signature Case Report Pap ? Case: [id number] ? 01/16/2019 [facility] Authorizing Provider: ??Gabriela Tomlinson, DO ?Collected: ? 01/10/2019 10:37 AM ? 10:41 AM LABORATOR Y Ordering Location: ? [facility] ? Received: ?01/10/2019 10:42 AM ? CDT ? Services-ANIMAL ECOLOGIST ? First Screen: ? Adrian, Paula L ? Specimen: ?Pap Test, Rou enriqueta, Cervix/Endocervix ? Pap Specimen Satisfactory for 01/16/2019 [facility] Adequacy evaluation, 10:41 AM LABORATORY endocervical/chong CDT sformation zone component present. Pap Negative for 01/16/2019 [facility] Electr onically Interpretation intraepithelial 10:41 AM LABORATOR Y signed by lesion or CDT Lisseth, malignancy Paula tuttle (NILM). 01/16/2019 at 10:41 AM Gross The specimen is 01/16/2019 [facility] Description received in 10:41 AM LABORATORY [facility] [...] false-negative reports may occur. Embedded Images 01/16/2019 [facility] 10:41 AM LABORATORY CDT Specimen Anatomical Collection Method Collection Time Receive d Time (Source) Location / / Volume Laterality Other Specimen ENTIRE ENDOCERVIX 01/10/2019 10:37 12/29 Type / Unknown AM CDT 10:42 AM CDT Comment: LMP: Patient's last menstrual p eriod was 12/05/2018. Gabriela Mcfarlane DO LAB PATHOLOGY Performing Organization Address City/State/ZIP Code Phon e Number [facility] [address] [place] [address] documented in this encounter Visit Diagnoses Diagnosis [...] tract documented in this encounter Care Teams Spectroscopist Relationship Specialty Start Date End Date Kristine Mendez MD PCP - General 01/01/14 [address] [place] [address] documented as of this encounter
--- OUTSIDE RECORDS SUMMARY | 2021-12-26 08:18 | XMS_ITS | Encounter Summary ---
:1985 Author Organization [facility] Address [address] [place] [address] Care Team Providers Name Role Phone Kristine Mendez MD Primary Care Provider Reason for Visit Procedure/Equipment (Routine) - Incomplete Specialty Diagnoses / Procedures Referred By Contact Refer red To Contact Diagnoses Left breast mass Madeleine Page, PAIN MANAGEMENT NURSE, COUNTY HEALTH OFFICER Procedures YMM Mammogram Diag Bilat W 3D Aurelia MM Mammogram Diag Bilat [address] [place] [address] Referral ID Status Reason Start Date Expiration Date Visits V isits Requested Authorized [id number] Incomplete 05/23/2019 08/21/2020 1 1 Encounter Details Date Type Department Care Team Description 05/28/2019 Ancillary Procedure [facility] [address] Madeleine Page , Left breast mass Mammography PAIN MANAGEMENT NURSE, COUNTY HEALTH OFFICER [address] [facility] [address] [place] [address] [phone] Social History Tobacco Use Types Packs/Day Years [...] an ultrasound-guided biopsy 06-03-2019. Sent message to [email or web address] ER AND CELLOPHANER HELPER MACHINE documented in this encounter Plan of Treatment Not on filedocumented as of this encounter Procedures Procedure Name Priority Date/Time Associated Diagnosis Comme nts [facility] MAMMOGRAM DIAG Routine 05/28/2019 2:16 PM Left breast mass Results for this BILAT W 3D AURELIA BANDER AND CELLOPHANER HELPER MACHINE procedure ar e in the results section. documented in this encounter Results (ABNORMAL) [facility] US Breast Lt (05/28/2019 3:07 PM BANDER AND CELLOPHANER HELPER MACHINE) Anatomical Region Laterality Modality Breast Left Ultrasound Specimen (Source) Anatomical Collection Method Collection Time Re ceived Time Location / / Volume Laterality 05/28/2019 2:58 PM BANDER AND CELLOPHANER HELPER MACHINE Impressions 05/28/2019 3:44 PM BANDER AND CELLOPHANER HELPER MACHINE HISTORY: Left breast mass 12:00 p.m., 2 [...] is indeterminate. Ultrasound-guided biopsy is recommended. The [facility] will attempt to schedule the recommended follow [...] BI-RADS CATEGORY 4: Susp icious. Madeleine Page PAIN MANAGEMENT NURSE, COUNTY HEALTH OFFICER RAD ERIC (ABNORMAL) YMM Mammogram Diag Bilat W 3D Aurelia (05/28/2019 2:16 PM BANDER AND CELLOPHANER HELPER MACHINE) Anatomical Region Laterality Modality Breast Bilateral Mammography Specimen (Source) Anatomical Collection Method Collection Time Re ceived Time Location / / Volume Laterality 05/28/2019 2:15 PM BANDER AND CELLOPHANER HELPER MACHINE Impressions 05/28/2019 3:44 PM BANDER AND CELLOPHANER HELPER MACHINE HISTORY: Left breast mass 12:00 p.m., 2 [...] is indeterminate. Ultrasound-guided biopsy is recommended. The [facility] will attempt to schedule the recommended follow [...] BI-RADS CATEGORY 4: Susp icious. Madeleine Page PAIN MANAGEMENT NURSE, COUNTY HEALTH OFFICER RAD ERIC documented in this encounter Visit Diagnoses Diagnosis Left breast mass Lump or mass in breast Left breast mass Lump or mass in breast documented in this encounter Care Teams Metal Turner Relationship Specialty Start Date End Date Kristine Menedz MD PCP - General 01/01/14 [address] [place] [address] documented as of this encounter
--- OUTSIDE RECORDS SUMMARY | 2021-12-26 08:18 | XMS_ITS | Encounter Summary ---
:1985 Author Organization [facility] Address [address] [place] [address] Care Team Providers Name Role Phone Kristine Mendez MD Primary Care Provider Reason for Visit Reason Comments Follow-up Encounter Details Date Type Department Care Team Description 03/02/2014 Office Visit [facility] Apolonia Cm, Pelvic pa in in female (Primary Dx); Medicine Screening for malignant neoplasm of the cervix [address] [place] [address] [place] [address] [phone] Social History Tobacco Use Types Packs/Day Years Used Date Smoking Tobacco: Never Alcohol Use Standard Drinks/Week Comments No 0 (1 standard drink = 0.6 oz pure alcoho l) Sex Assigned at Date Recorded Not on file documented as of this encounter Last Filed Vital Signs Vital Sign Reading Time Taken Comments Blood Pressure 124/80 03/02/2014 3:55 PM STEAMING MACHINE OPERATOR Pulse 88 03/02/2014 3:55 PM STEAMING MACHINE OPERATOR Temperature - - Respiratory Rate - - Oxygen Saturation - - Inhaled Oxygen Concentration - - Weight 59 kg (130 lb) 03/02/2014 3:55 PM STEAMING MACHINE OPERATOR Height - - Body Mass Index 18.79 [...] up - TBD based on lab results MING MACHINE OPERATOR documented in this encounter Plan of Treatment Not on filedocumented as of this encounter Procedures Procedure Name Priority Date/Time Associated Comments Diagnosis VAGINOSA DNA PROBE Routine 03/02/2014 4:20 PM Pelvic pain in R esults for this STEAMING MACHINE OPERATOR female procedure are i n the results section. HPV WITH 16 18 Routine 03/02/2014 4:20 PM Results for this GENOTYPING, STEAMING MACHINE OPERATOR procedure are i n CERVICAL/ENDOCERVICAL the re sults section. ANATOMICAL PATH Routine 03/02/2014 4:20 PM Result s for this LIQUID BASED STEAMING MACHINE OPERATOR procedure are i n the results section. PAP SMEAR ORDER Routine 03/02/2014 4:20 PM Screening for Resul ts for this STEAMING MACHINE OPERATOR malignant neoplasm procedure are in of the cervix the results section. SEXUALLY TRANSMITTED Routine 03/02/2014 4:20 PM Pelvic pain in Results for this DISEASE PROBE STEAMING MACHINE OPERATOR female procedure are in the results section. documented in this encounter Results VAGINOSA DNA PROBE (03/02/2014 4:20 PM STEAMING MACHINE OPERATOR) [facility] gist Method Time Signature Source Vaginal HP CONVERSION Site HP CONVERSION Vaginosis DNA No Melody HP CONVERSION Probe present Vaginosis DNA No Gardnerella HP CONVERSI ON Probe present Vaginosis DNA No Trichomonas HP CONVERSI ON Probe present Specimen (Source) Anatomical Collection Method Collection Time Re ceived Time Location / / Volume Laterality Vaginal: 03/02/2014 4:20 PM STEAMING MACHINE OPERATOR Apolonia Cm MD LAB_1 Performing Organization Address City/State/ZIP Code Phon e Number HP CONVERSION SEXUALLY TRANSMITTED DISEASE PROBE (03/02/2014 4:20 PM STEAMING MACHINE OPERATOR) Component Value Ref Test Analysis Performed At [facility] Method Time Signature Source Endocervical for HP CONVERSION molecular testing Site HP CONVERSION Chlamydia Chlamydia HP CONVERSION Trach DNA trachomatis NEGATIVE by DNA amplification GC DNA Neisseria HP CONVERSION gonorrhea NEGATIVE by DNA amplification. Specimen (Source) Anatomical Collection Method Collection Time Re ceived Time Location / / Volume Laterality Endocervical for 03/02/2014 4:20 molecular testing: PM STEAMING MACHINE OPERATOR Apolonia Cm MD LAB_1 Performing Organization Address City/State/ZIP Code Phon e Number HP CONVERSION Pap Smear (03/02/2014 4:20 PM STEAMING MACHINE OPERATOR) Specimen (Source) Anatomical Collection Method Collection Time Re ceived Time Location / / Volume Laterality 03/02/2014 4:20 PM STEAMING MACHINE OPERATOR Narrative HP CONVERSION - 03/18/2014 7:07 PM STEAMING MACHINE OPERATOR FINAL GYNECOLOGICAL CYTOLOGY REPORT Pathology #: [id number] ?Date Obtained: 03/02/2014 ? Date Received: 03/04/2014 [...] with 16 18 Genotyping (03/02/2014 4:20 PM STEAMING MACHINE OPERATOR) [facility] Method Time Signature HPV High Risk [...] and its pe rformance characteristics determined by [facility] [employer]. It has not been cleared or approved by [facility]. The laboratory is regulated under CLIA as qualified to perform high-complexity testing. This test is used for clinical purposes. It should not be regarded as investigational or fo r research. Specimen Anatomical Collection Method Collection Time Receive d Time (Source) Location / / Volume Laterality 03/02/2014 4:20 PM 4 4:20 STEAMING MACHINE OPERATOR PM STEAMING MACHINE OPERATOR Apolonia Cm MD LAB_1 Performing Organization Address City/State/ZIP Code Phon e Number HP CONVERSION Pap Smear Order (03/02/2014 4:20 PM STEAMING MACHINE OPERATOR) [facility] gist Method Time Signature Pap Smear Collected HP CONVERSION Monolayer tracking test Specimen Anatomical Collection Method Collection Time Receive d Time (Source) Location / / Volume Laterality 03/02/2014 4:20 PM 4 4:59 STEAMING MACHINE OPERATOR AM STEAMING MACHINE OPERATOR Apolonia Cm MD LAB_1 Performing Organization Address City/State/ZIP Code Phon e Number HP CONVERSION documented in this encounter Visit Diagnoses Diagnosis Pelvic pain in female - Primary Unspecified symptom associated with fema le genital organs Screening for malignant neoplasm of the cervix documented in this encounter Care Teams Zoo Caretaker Relationship Specialty Start Date End Date Kristine Mendez MD PCP - General 01/01/14 [address] [place] [address] documented as of this encounter
--- OUTSIDE RECORDS SUMMARY | 2021-12-26 08:18 | XMS_ITS | Encounter Summary ---
:1985 [facility] Address [address] [place] [address] Care Team Providers Name Role Phone Kristine Mendez MD Primary Care Provider Reason for Visit Reason Comments BREAST LUMP Encounter Details Date Type Department Care Team Description 05/23/2019 Nurse Triage [facility] Tiana Mcfarlane, DO BREAST LUMP Services-INFORMATION SYSTEMS SECURITY ANALYST [address] [facility] Ad [address] [place] [address], [address] [place] [address] [place] [address] [phone] Social History Tobacco Use Types Packs/Day Years [...] Disposition ??? Breast lump Protocols used: BREAST [id number] Non-tender, dime sized, slightly mobile breast lump at 12:00 slightly above areola in left breast. First noticed last night. No fam hx of breast cancer. Pt denies hx of benign breast lumps but writer editor noticed in hx in same breast. Denies redness, warmth, nipple discharge or flaking of nipple. Appointment made per protocol. Problem list reviewed as related to this call. Future Appointments Provider Department Center 05/23/2019 10:30 AM Madeleine Page APRN, SUBSTANCE ABUSE RN [facility]-INFORMATION SYSTEMS SECURITY ANALYST PN CARR FR S CLASSIFIER documented in this encounter Plan of Treatment Not on filedocumented as of this encounter Visit Diagnoses Not on filedocumented in this encounter Care Teams Warehouse Picker Relationship Specialty Start Date End Date Kristine Mendez MD PCP - General 01/01/[address] [place] [address] documented as of this encounter
--- OUTSIDE RECORDS SUMMARY | 2021-12-26 08:18 | XMS_ITS | Clinical Summary ---
:1985 Author Organization [facility] Address [address] [place] [address] Care Team Providers Name Role Phone Kristine [...] for each transition of care or referral. [facility] Allergies No known active allergies Medications No [...] Comments Blood Pressure 127/82 05/23/2019 10:30 AM SCHEDULING AGENT Pulse 103 05/23/2019 10:30 AM SCHEDULING AGENT Temperature 36.9 ??C (98.4 ??F) 05/23/2019 10:30 AM SCHEDULING AGENT Respiratory Rate 16 02/10/2019 2:45 PM CDT Oxygen Saturation 100% 02/10/2019 2:45 PM CDT Inhaled Oxygen Concentration - - Weight 63.5 kg (140 lb) 05/23/2019 10:30 AM SCHEDULING AGENT Height 177.8 cm (5' 10) 02/10/2019 1:19 [...] Phone Addre ss Type Group CIGNA CIGNA [id number] 2013-Present [phone] [address] [place] [address] [address] [facility] (Home) W [phone] Eduar BEYER (Work) [address] Guido, Personal/Family Self 1985 [address] [facility] (Home) [address] [phone] Eduar TURNER (Work) [address] Guido, Personal/Family Self 1985 [address] [facility] (Home) [place] [address] Care Teams Statistics Intern Relationship Specialty Start Date End Date Kristine Mendez MD PCP - General 01/01/14 [address] [place] [place] [address]
--- OUTSIDE RECORDS SUMMARY | 2021-12-26 08:18 | XMS_ITS | Encounter Summary ---
:1985 Author Organization [facility] Address [address] [place] [address] Care Team Providers Name Role Phone Kristine Mendez MD Primary Care Provider Reason for Referral Procedure/Equipment (Routine) - Incomplete Specialty Diagnoses / Procedures Referred By Contact Refer red To Contact Diagnoses Left breast mass Madeleine Page APRN, GLOBAL LEAD Procedures [place]MM [place] [address] [address] [place] [address] Referral ID Status Reason Start Date Expiration Date Visits V isits Requested Authorized [id number] Incomplete 05/23/2019 08/21/2020 1 1 UGH OPERATOR Procedure/Equipment (Routine) - Incomplete Specialty Diagnoses / Procedures Referred By Contact Refer red To Contact Diagnoses Left breast mass Madeleine Page APRN, GLOBAL LEAD Procedures YMM Mammogram Diag Bilat W 3D Brodie MM Mammogram Diag Bilat [address] [place] [address] Referral ID Status Reason Start Date Expiration Date Visits V isits Requested Authorized [id number] Incomplete 05/23/2019 08/21/2020 1 1 UGH OPERATOR Reason for Visit Reason Comments BREAST LUMP Left Encounter Details Date Type Department Care Team Description 05/23/2019 Office Visit [facility] Madeleine Page, Left breast mass (Primary Dx); Services-GROUP PROGRAM MANAGER ASAD, NAWAF Irregular menses [address], [address] [facility] [address] [place] [phone] Social History Tobacco Use Types Packs/Day Years [...] Comments Blood Pressure 127/82 05/23/2019 10:30 AM THROUGH OPERATOR Pulse 103 05/23/2019 10:30 AM THROUGH OPERATOR Temperature 36.9 ??C (98.4 ??F) 05/23/2019 10:30 AM THROUGH OPERATOR Respiratory Rate - - Oxygen Saturation - - Inhaled Oxygen Concentration - - Weight 63.5 kg (140 lb) 05/23/2019 10:30 AM THROUGH OPERATOR Height - - Body Mass Index 20.09 [...] The pain is not severe and no bugz-ibt-zemkqai medications used. This is a new symptom. [...] ??? Irritable bowel syndrome ??? Thyroid nodule ([facility]) 02/23/2014 PSH: Past Surgical History: Procedure Laterality Date ??? WISDOM TEETH EXTRACTION Social Hx: Social History Socioeconomic History ??? Marital status: Single Spouse name: Not on file ??? Number of children: Not on file ??? Years of education: Not on file ??? Highest education level: Not on file Occupational History ??? 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 Comment: [employer] Social Needs ??? 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 OBJECTIVE:Patient was offered a substitute teacher for visit and declined. BP 127/82 (BP [...] will be addressed at apt by the [facility] radiologist and team. Irregular menses. Advised patient to schedule an infertility consult. She has been trying for 1 yearto conceive with PCOS symptoms and AMA. Dictation disclaimer: Some notes are completed with voice-recognition dictation software. Typographical errors may result. Please contact me via [facility] staff message if you note any errors requiring clarification. UGH OPERATOR documented in this encounter Plan of Treatment Not on filedocumented as of this encounter Results (ABNORMAL) [facility] US Breast Lt (05/28/2019 3:07 PM THROUGH OPERATOR) Anatomical Region Laterality Modality Breast Left Ultrasound Specimen (Source) Anatomical Collection Method Collection Time Re ceived Time Location / / Volume Laterality 05/28/2019 2:58 PM THROUGH OPERATOR Impressions 05/28/2019 3:44 PM THROUGH OPERATOR HISTORY: Left breast mass 12:00 p.m., 2 [...] is indeterminate. Ultrasound-guided biopsy is recommended. The [facility] will attempt to schedule the recommended follow [...] is indeterminate. Ultrasound-guided biopsy is recommended. The [facility] will attempt to schedule the recommended follow up with the patient. IMPRESSION: ACR BI-RADS CATEGORY 4: Susp icious. Madeleine Page CASTING AGENT, GLOBAL LEAD RAD ERIC (ABNORMAL) YMM Mammogram Diag Bilat W 3D Brodie (05/28/2019 2:16 PM THROUGH OPERATOR) Anatomical Region Laterality Modality Breast Bilateral Mammography Specimen (Source) Anatomical Collection Method Collection Time Re ceived Time Location / / Volume Laterality 05/28/2019 2:15 PM THROUGH OPERATOR Impressions 05/28/2019 3:44 PM THROUGH OPERATOR HISTORY: Left breast mass 12:00 p.m., 2 [...] is indeterminate. Ultrasound-guided biopsy is recommended. [facility] will attempt to schedule the recommended follow [...] is indeterminate. Ultrasound-guided biopsy is recommended. The [facility] will attempt to schedule the recommended follow up with the patient. IMPRESSION: ACR BI-RADS CATEGORY 4: Susp icious. Madeleine Page CASTING AGENT, GLOBAL LEAD RAD ERIC documented in this encounter Visit Diagnoses Diagnosis Left breast mass - Primary Lump or mass in breast Irregular menses Irregular menstrual cycle Left breast mass Lump or mass in breast Left breast mass Lump or mass in breast documented in this encounter Care Teams Doubler Helper Relationship Specialty Start Date End Date Kristine Mendez MD PCP - General 01/01/14 [address] [address] [place] [address] documented as of this encounter
--- OUTSIDE RECORDS SUMMARY | 2021-12-26 08:18 | XMS_ITS | Encounter Summary ---
:1985 Author Organization [facility] Address [address] [place] [address] Care Team Providers Name Role Phone Kristine Mendez MD Primary Care Provider Encounter Details Date Type Department Care Team Description 11/11/2017 edith Osuna [phone] Social History Tobacco Use Types Packs/Day Years [...] an antibiotic. I sent a prescription to [facility]/pharmacy. I?ve prescribed high dose amoxicillin, which [...] 7 days Note: Refills: None Sent To: [facility]/pharmacy [id number] [place] [address]. [place] [address] Treatment Plan Self Care Tip Topics Inflammation [...] orders amoxicillin (amoxicillin) fluticasone (fluticasone) Allergies None [facility] Information [facility] by Shahiya We are an online clinic open 20/11. If you have any questions or comments about this visit, please call or email . FAMILY MEDICINEEDITH PROVIDER - 11/11/2017 12:00 AM [...] plan for free. Feel better soon. Rebeca CARPENTER ROUGH Treatment Plan Let?s get you feeling better in the next 24 hours by using a prescription nasal steroid and an effective blend of glea-bbt-jzrvhxu products to get you better faster. The [...] the virus. I sent your prescription to [facility]/pharmacy . If your symptoms don?t improve after 24 hours, or if you have questions, Request a Call Back and we?ll adjust your treatment for free. Order(s) fluticasone 50 mcg/actuation spray,suspension [place] 2 spray into both nostrils once a day as directed for 30 days Note: Refills: 2 Sent To: [facility]/pharmacy [address] [place] [address] Treatment Plan Self Care Tip Topics Your [...] longer term allergy plan, much like an cook tortilla would, to treat chronic nasal congestion and [...] None Current orders fluticasone (fluticasone) Allergies None [facility] Information [facility] by Shahiya We are an online clinic open 20/11. If you have any questions or comments about this visit, please call or email . documented in this encounter Plan of Treatment Not on filedocumented as of this encounter Visit Diagnoses Not on filedocumented in this encounter Care Teams Advertising Editor Relationship Specialty Start Date End Date Kristine Mendez MD PCP - General 01/01/14 [address] [place] [address] documented as of this encounter
--- OUTSIDE RECORDS SUMMARY | 2021-12-26 08:18 | XMS_ITS | Encounter Summary ---
:1985 Author Organization [facility] Address [address] [place] [address] Care Team Providers Name Role Phone Kristine Mendez MD Primary Care Provider Reason for Visit Reason Comments Pharyngitis x 1 week Encounter Details Date Type Department Care Team Description 04/17/2017 Office Visit Amy Berger e Radha Alejandra, Acute pharyngitis, unspecifi ed etiology (Primary Dx); [address] PA-C Sore throat [place] [address] [facility] [phone] [place], [place] [id number] Social History Tobacco Use Types Packs/Day Years [...] Comments Blood Pressure 145/83 04/17/2017 8:54 AM PHOTOGRAPH RETOUCHER Pulse 83 04/17/2017 8:54 AM PHOTOGRAPH RETOUCHER Temperature 36.7 ??C (98 ??F) 04/17/2017 8:54 AM PHOTOGRAPH RETOUCHER Respiratory Rate - - Oxygen Saturation 100% 04/17/2017 8:54 AM PHOTOGRAPH RETOUCHER Inhaled Oxygen Concentration - - Weight 63.7 kg (140 lb 8 oz) 04/17/2017 8:54 AM PHOTOGRAPH RETOUCHER Height - - Body Mass Index 20.3 [...] cup of warm water. ?? Take an rcsw-mpr-rpgmnzp pain medicine, such as acetaminophen (Tylenol), ibuprofen (Advil, Motrin), or naproxen (Aleve). Read and follow all instructions on the label. ?? Be careful when taking zjxr-ryg-jzyyxkf cold or flu medicines and Tylenol at [...] may help decrease throat pain. ?? Use ysyd-yth-yxtenfw throat lozenges to soothe pain. Regular cough [...] can you learn more? 1. Go to [employer] or Dick or Bro/Beisen. 2. Enter U420 in the search box. Current as of: November 26, 2015 Content Version: 11.3 ?? [id number] Fair Observer, StayT[employer]. Thank you so much for choosing [facility]. It was a pleasure taking care of you today! Important phone numbers: Daytime Clinic information: [phone] Appointment center: [phone] Evenings & Weekends CareLine: [phone] Urgent Care Hotline: [phone] [facility], Emergency Department [address] [place] [address] OGRAPH RETOUCHER documented in this encounter Progress Notes Radha [...] with salt water Pt was seen at [facility] on 04/12 and had a negative rapid [...] orders and patient instructions Radha Alejandra PA-C OGRAPH RETOUCHER documented in this encounter Plan of Treatment Not on filedocumented as of this encounter Procedures Procedure Name Priority Date/Time Associated Diagnosis Comme nts STREP GRP A, RAPID Waiting 04/17/2017 8:56 AM Sore throat Res ults for this SCREEN PHOTOGRAPH RETOUCHER procedure are i n the results section. documented in this encounter Results Strep Grp A, Rapid Screen Perform a culture if negative screen? No (04/17/2017 8:56 AM PHOTOGRAPH RETOUCHER) [facility] gist Method Time Signature Grp A Rapid Negative NEG [facility] Specimen Anatomical Collection Method Collection Time Receive d Time (Source) Location / / Volume Laterality 04/17/2017 8:56 AM 7 9:03 PHOTOGRAPH RETOUCHER AM PHOTOGRAPH RETOUCHER Narrative [facility] - 04/17/2017 9:[address] Performed at [facility], [address], [place] [address] Radha Alejandra PA-C LAB_1 Performing Organization Address City/State/ZIP Code Phon e Number [facility] [phone] documented in this encounter Visit Diagnoses Diagnosis Acute pharyngitis, unspecified etiology - Primary Sore throat Acute pharyngitis documented in this encounter Care Teams Bowling Ball Assembler Relationship Specialty Start Date End Date Kristine Mendez MD PCP - General 01/01/14 [address] [place] [id number] documented as of this encounter
--- OUTSIDE RECORDS SUMMARY | 2021-12-26 08:18 | XMS_ITS | Encounter Summary ---
:1985 Author Organization [facility] [employer] Address [address] [place] [address] Care Team Providers Name Role Phone Kristine Mendez MD Primary Care Provider Reason for Visit Reason Comments LAB RESULTS Encounter Details Date Type Department Care Team Description 06/04/2019 Telephone [facility] [address] Madeleine Page, ACCOUNT EXECUTIVE HEALTHCARE, LAB RESULTS Mammography VENTURE CAPITAL ANALYST [address] [address] [place] [address] [place], [place] [address] (Wo rk) Social History Tobacco Use Types [...] documented as of this encounter Nursing Lisa Nweell - 06/04/2019 3:47 PM CST Patient was given pathology results. Patient stated she had some bruising. Patient will await letterwith radiologist recommendations. Instructed patient to call with any other concerns or questions. IELD ENGINEER OFFICER documented in this encounter Plan of Treatment Not on filedocumented as of this encounter Visit Diagnoses Not on filedocumented in this encounter Care Teams Flaker Operator Relationship Specialty Start Date End Date Kristine Mendez MD PCP - General 01/01/14 [address] [place] [address] documented as of this encounter
--- OUTSIDE RECORDS SUMMARY | 2021-12-26 08:18 | XMS_ITS | Encounter Summary ---
:1985 Author Organization [facility] Address [address] [place] [address] Care Team Providers Name Role Phone Kristine Mendez MD Primary Care Provider Reason for Visit Reason Comments ABDOMINAL CRAMPING--ED Encounter Details Date Type Department Care Team Description 09/29/2020 Nurse Triage Careline Unknown, ABDOMINAL CRAMPING--ED [address] Physician [place], [place] [address] [phone] [place], [place] [address] Social History Tobacco Use Types Packs/Day Years [...] goes and lasts for a few seconds. Millis/Parity: Gestational Age (by GAURAV or LMP): per patient 6-7 weeks Reviewed with patient pertinent medical history and risk status (as it relates to the call): Yes None, has first OB visit 10/14/20 at [facility]. PCOS. Reviewed with patient pertinent medications (as [...] - VAGINAL BLEEDING LESS THAN 20 WEEKS [id number] Advised careline available 20/11. Call back for any concerns, new or worsening symptoms. Sheila Morris - 09/29/2020 3:27 PM CDT Verified patient identity using three identifiers: Yes Caller's relationship to patient: Self At which care system or clinic is the patient normally seen? [facility] Symptoms Describe the reason for call/symptoms [...] on filedocumented in this encounter Care Teams Regulatory Internship Relationship Specialty Start Date End Date Kristine Mendez MD PCP - General 01/01/14 [address] [place] [address] documented as of this encounter
--- OUTSIDE RECORDS SUMMARY | 2021-12-26 08:18 | XMS_ITS | Encounter Summary ---
:1985 Author Organization [email or web address] Address [address] [place] [address] Care Team Providers Name Role Phone Kristine Mendez MD Primary Care Provider Encounter Details Date Type Department Care Team Description 03/03/2014 Notes/Orders [facility] Apolonia Cm, Radha pa in in female Medicine MD (Primary Dx) [address] [place] [address] [place] [address] [phone] Social History Tobacco Use Types Packs/Day Years [...] organs documented in this encounter Care Teams Tool Operator Relationship Specialty Start Date End Date Kristine Mendez MD PCP - General 01/01/14 [address] [place] [address] documented as of this encounter
--- OUTSIDE RECORDS SUMMARY | 2021-12-26 08:18 | XMS_ITS | Encounter Summary ---
:1985 Author Organization [facility] Address [address] [place] [address] Care Team Providers Name Role Phone Kristine Mendez MD Primary Care Provider Encounter Details Date Type Department Care Team Description 03/02/2014 Lab Visit [facility] Pelvic pain in female [address] [place] [id number] Social History Tobacco Use Types Packs/Day Years [...] Routine 03/02/2014 5:00 PM Results for this STEWARD/STEWARDESS THIRD procedure are i n the results section. URINE MICROSCOPIC Routine 03/02/2014 4:34 PM Resu lts for this STEWARD/STEWARDESS THIRD procedure are i n the results section. URINALYSIS ROUTINE, Routine 03/02/2014 4:34 PM Pelvic pain in Results for this MICRO/CULTURE IF POS STEWARD/STEWARDESS THIRD female procedu re are in the results section. documented in this encounter Results Urine Culture (03/02/2014 5:00 PM STEWARD/STEWARDESS THIRD) [facility] Method Time Signature Source Urine HP CONVERSION Site HP CONVERSION Urine Culture No growth HP CONVERSION Specimen (Source) Anatomical Collection Method Collection Time Re ceived Time Location / / Volume Laterality Urine: 03/02/2014 5:00 PM STEWARD/STEWARDESS THIRD Apolonia Cm MD LAB_1 Performing Organization Address [facility] Phon e Number HP CONVERSION (ABNORMAL) URINE MICROSCOPIC (03/02/2014 4:34 PM STEWARD/STEWARDESS THIRD) [facility] Method Time Signature Urine WBC 0-2 0 - 4 HP CONVERSION Urine RBC 5-9 (A) 0 - 2 HP CONVERSION Bacteria Urine Occasional (A) HP CONVERS ION Epithelial Few HP CONVERSION Cells Specimen (Source) Anatomical Collection Method Collection Time Re ceived Time Location / / Volume Laterality Urine: 03/02/2014 4:34 PM STEWARD/STEWARDESS THIRD Narrative HP CONVERSION - 03/02/2014 4:59 PM STEWARD/STEWARDESS THIRD Performed at [facility], [address] [place] [address] Apolonia Cm MD LAB_1 Performing Organization Address [facility] Phon e Number HP CONVERSION (ABNORMAL) URINALYSIS ROUTINE, MICRO/CULTURE IF POS (03/02/2014 4:34 PM STEWARD/STEWARDESS THIRD) [facility] Method Time Signature Urine Type Urine:clean [...] U Specific 1.020 1.005 - HP CONVERSION [place] 1.030 Urobilinogen Negative Negative HP CONVERSION Urine Specimen (Source) Anatomical Collection Method Collection Time Re ceived Time Location / / Volume Laterality Urine: 03/02/2014 4:34 PM STEWARD/STEWARDESS THIRD Narrative HP CONVERSION - 03/02/2014 4:41 PM STEWARD/STEWARDESS THIRD Performed at [facility], [address] [place] [address] Apolonia Cm MD LAB_1 Performing Organization Address [facility] Phon e Number HP CONVERSION documented in this encounter Visit Diagnoses Diagnosis Pelvic pain in female Unspecified symptom associated with fema le genital organs documented in this encounter Care Teams Continuous Yarn Dyeing Machine Operator Relationship Specialty Start Date End Date Kristine Mendez MD PCP - General 01/01/14 [address] [place] [address] documented as of this encounter
--- OUTSIDE RECORDS SUMMARY | 2021-12-26 08:18 | XMS_ITS | Encounter Summary ---
:1985 Author Organization [employer] Address [address] [place] [address] Care Team Providers Name Role Phone Kristine Mendez MD Primary Care Provider Reason for Visit Reason Comments Procedure Encounter Details Date Type Department Care Team Description 01/27/2014 Initial Consult [facility] [address] Leann Magaña ntoxic uninodular goiter (Primary Dx); Endocrinology MD Eduar Polycystic ovaries [address] [facility] [address] [place] [phone] Social History Tobacco Use Types Packs/Day Years [...] you in 6 months. You can call [phone] to set up an appointment. If there [...] Filed: 02/18/142044 Note Time: 01/28/1445 Status: Signed Cloth Reeler: Leann Magaña MD (Physician) NAME: YAMILET LORA MR#: [id number] CSN: [id number] AUTHENTICATING CLINICIAN: Leann Magaña MD CONFIRM #: [id number] LOC: 432 CLINIC PROGRESS NOTE DATE OF [...] reviewing treatment plan. RMM:MEDQ C: CONFIRM #: [id number] documented in this encounter Miscellaneous Notes Miscellaneous - 06/08/2016 3:31 PM CSTNotes Recorded by Leann Magaña MD on 01/28/2014 at 1:23 PMPoonuru pt. Please let pt know that thyroid fna was benign. RTC in 6 months as planned. CAR SUPERVISOR documented in this encounter Plan of Treatment [...] CDT ? FINAL CYTOLOGY REPORT Pathology #: [id number] ?Date Obtained: 01/27/2014 ? Date Received: 01/27/2014 [...] a benign adenomatoid no dule. CPT Codes: ?25846 x 1 ? End of Report Transcriptions [...] ovaries documented in this encounter Care Teams Indirect Fire Infantryman Relationship Specialty Start Date End Date Kristine Mendez MD PCP - General 01/01/14 [address] [place] [id number] documented as of this encounter
--- OUTSIDE RECORDS SUMMARY | 2021-12-26 08:18 | XMS_ITS | Encounter Summary ---
:1985 Author Organization [employer] Address [address] [place] [address] Care Team Providers Name Role Phone Kristine Mendez MD Primary Care Provider Encounter Details Date Type Department Care Team Description 04/12/2018 edith Osuna [phone] Social History Tobacco Use Types Packs/Day Years [...] ear symptoms. I sent your prescriptions to [facility] [id number]. I???ve also listed a few self-care tips [...] Note: Refills: None fluticasone 50 mcg/actuation spray,suspension [place] 1-2 spray into both nostrils once a day as needed for 30 days Note: Refills: None Sent To: [facility] [id number] SUPPORT SPECIALIST [place], [place] [id number] Treatment Plan Self Care Tip Topics Ease [...] orders fluticasone (fluticasone) amoxicillin (amoxicillin) Allergies None Beeminder Information [facility] [employer] We are an online clinic open 20/11. If you have any questions or comments about this visit, please call or email [email or web address] FILLER documented in this encounter Plan of Treatment Not on filedocumented as of this encounter Visit Diagnoses Not on filedocumented in this encounter Care Teams Environmental Sampler Relationship Specialty Start Date End Date Kristine Mendez MD PCP - General 01/01/14 [address] [address] [place] [address] documented as of this encounter
--- OUTSIDE RECORDS SUMMARY | 2021-12-26 08:18 | XMS_ITS | Encounter Summary ---
:1985 Author Organization [facility] Address [address] [place] [address] Care Team Providers Name Role Phone Kristine Mendez MD Primary Care Provider Reason for Visit Procedure/Equipment (Routine) - Incomplete Specialty Diagnoses / Procedures Referred By Contact Refer red To Contact Diagnoses Left breast mass Madeleine Page, BARREL MAKER, MECHANICAL SPECIALIST Procedures [facility] [place] [address] [place] [address] Referral ID Status Reason Start Date Expiration Date Visits V isits Requested Authorized [id number] Incomplete 05/23/2019 08/21/2020 1 1 Encounter Details Date Type Department Care Team Description 05/28/2019 Ancillary Procedure [facility] 3850 Madeleine Page , Left breast mass Mammography BARREL MAKER, MECHANICAL SPECIALIST 3850 [facility] [address] [place] [address] [phone] Social History Tobacco Use Types Packs/Day Years [...] Name Priority Date/Time Associated Diagnosis Comme nts [facility] US BREAST LT Routine 05/28/2019 3:07 PM Left breast mass R esults for this FISHERIES DIRECTOR procedure are i n the results section. documented in this encounter Results (ABNORMAL) [facility] US Breast Lt (05/28/2019 3:07 PM FISHERIES DIRECTOR) Anatomical Region Laterality Modality Breast Left Ultrasound Specimen (Source) Anatomical Collection Method Collection Time Re ceived Time Location / / Volume Laterality 05/28/2019 2:58 PM FISHERIES DIRECTOR Impressions 05/28/2019 3:44 PM FISHERIES DIRECTOR HISTORY: Left breast mass 12:00 p.m., 2 [...] is indeterminate. Ultrasound-guided biopsy is recommended. The [facility] will attempt to schedule the recommended [...] indeterminate. Ultrasound-guided biopsy is recommended. The [facility] will attempt to schedule the recommended follow up with the patient. IMPRESSION: ACR BI-RADS CATEGORY 4: Susp icious. Madeleine Page BARREL MAKER, MECHANICAL SPECIALIST RAD ERIC (ABNORMAL) [facility] Mammogram Diag Bilat W 3D [place] (05/28/2019 2:16 PM FISHERIES DIRECTOR) Anatomical Region Laterality Modality Breast Bilateral Mammography Specimen (Source) Anatomical Collection Method Collection Time Re ceived Time Location / / Volume Laterality 05/28/2019 2:15 PM FISHERIES DIRECTOR Impressions 05/28/2019 3:44 PM FISHERIES DIRECTOR HISTORY: Left breast mass 12:00 p.m., 2 [...] is indeterminate. Ultrasound-guided biopsy is recommended. The [facility] will attempt to schedule the recommended [...] BI-RADS CATEGORY 4: Susp icious. Madeleine Page BARREL MAKER, MECHANICAL SPECIALIST RAD ERIC documented in this encounter Visit Diagnoses Diagnosis Left breast mass Lump or mass in breast Left breast mass Lump or mass in breast documented in this encounter Care Teams Drafter Mechanical Relationship Specialty Start Date End Date Kristine Mendez MD PCP - General 01/01/14 [address] [address] [place] [address] documented as of this encounter
--- OUTSIDE RECORDS SUMMARY | 2021-12-26 08:18 | XMS_ITS | Encounter Summary ---
:1985 Author Organization [employer] Address [address] [place] [address] Care Team Providers Name Role Phone Kristine Mendez MD Primary Care Provider Reason for Visit Reason Comments PELVIC PAIN Encounter Details Date Type Department Care Team Description 02/23/2014 Office Visit [facility] Kristine Mendez, UTI (urinary tract infection) (Primary Dx); Medicine Pelvic pain in female [address] [address] [place] [address] [place] [phone] (Wo rk) Social History Tobacco Use Types [...] encounter Progress Notes Kristine Mendez MD - 02/23/2014 3:24 PM CDT Quick [...] Years of Education: N/A 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 Smoking status: Never Smoker ??? Smokeless tobacco: Not on file ??? Alcohol Use: No Comment: rare ??? Drug Use: No ??? Sexual Activity: Partners: Male Control/ Protection: Other Topics Concern ??? Exercise Yes ??? Seat Belt Yes ??? Special Diet No ??? 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 [employer] OBJECTIVE: BP 130/82 Pulse 76 Temp(Src) 36.8 [...] on 3 day from online clinic - [facility] ATIONAL CONSULTANT Miscellaneous - 06/08/2016 2:42 PM CSTNotes Recorded by Kristine Mendez MD on 02/23/2014 at 3:24 PMPt on cipro BID to complete 7 day course for incomplete tx of sx on 3 day from [facility] ATIONAL CONSULTANT documented in this encounter Plan of [...] Results Urine Culture (02/23/2014 2:51 PM CDT) [facility] Method Time Signature Source Urine HP CONVERSION Site HP CONVERSION Urine Culture No growth HP CONVERSION Specimen (Source) Anatomical Collection Method Collection Time Re ceived Time Location / / Volume Laterality Urine: 02/23/2014 2:51 PM CDT Kristine Mendez MD LAB_1 Performing Organization Address [facility] Code Phon e Number HP [...] - 02/23/2014 3:19 PM CDT Performed at [facility], [address] [place] [address] Transcriptions 06/08/2016 2:42 PM CSTNotes Recorded by Kristine Mendez MD on 02/23/2014 at 3:24 PMPt on cipro BID to complete 7 day course for incomplete tx of sx on 3 day from online clinic - await Kristine Mendez MD LAB_1 Performing Organization Address [facility] Phon e Number HP CONVERSION (ABNORMAL) URINALYSIS ROUTINE, MICRO/CULTURE IF POS (02/23/2014 2:51 PM CDT) [facility] Method Time Signature Urine Type Urine:clean [...] U Specific >=1.030 1.005 - HP CONVERSION [place] 1.030 Urobilinogen Negative Negative HP CONVERSION Urine Specimen (Source) Anatomical Collection Method Collection Time Re ceived Time Location / / Volume Laterality Urine: 02/23/2014 2:51 PM CDT Narrative HP CONVERSION - 02/23/2014 2:59 PM CDT Performed at [facility], [address] [facility], [place] [address] Transcriptions 06/08/2016 2:42 PM CSTNotes Recorded by [...] organs documented in this encounter Care Teams Sausage Linker Relationship Specialty Start Date End Date Kristine Mendez MD PCP - General 01/01/14 [address] [place] [address] documented as of this encounter
--- OUTSIDE RECORDS SUMMARY | 2021-12-26 08:18 | XMS_ITS | Encounter Summary ---
:1985 Author Organization [facility] Address [address] [place] [address] Care Team Providers Name Role Phone Kristine Mendez MD Primary Care Provider Reason for Visit Procedure/Equipment (Routine) - Canceled Specialty Diagnoses / Procedures Referred By Contact Refer red To Contact Diagnoses Left breast mass Madeleine Page, TOOL SETTER, INSURANCE CASE MANAGER [place] [address] [place] [address] Referral ID Status Reason Start Date Expiration Date Visits V isits Requested Authorized [id number] Canceled 05/28/2019 08/26/2020 1 1 Encounter Details Date Type Department Care Team Description 06/03/2019 Ancillary Procedure [facility] 3850 Madeleine Page , Left breast mass Mammography TOOL SETTER, INSURANCE CASE MANAGER 3850 [facility] [address] [place] [address] [phone] Social History Tobacco Use Types Packs/Day Years [...] breast documented in this encounter Care Teams Coal Trimmer Relationship Specialty Start Date End Date Kristine Mendez MD PCP - General 01/01/[address] [place] [address] documented as of this encounter
--- OUTSIDE RECORDS SUMMARY | 2021-12-26 08:18 | XMS_ITS | Encounter Summary ---
:1985 Author Organization [facility] Address [address] [place] [address] Care Team Providers Name Role Phone Kristine Mendez MD Primary Care Provider Reason for Visit Procedure/Equipment (Routine) - Incomplete Specialty Diagnoses / Procedures Referred By Contact Refer red To Contact Diagnoses Left breast mass Madeleine Page, SOCK LINER, VASCULAR SURGERY PHYSICIAN [place] [address] [place] [address] Referral ID Status Reason Start Date Expiration Date Visits V isits Requested Authorized [id number] Incomplete 05/28/2019 08/26/2020 1 1 Encounter Details Date Type Department Care Team Description 06/03/[address] [facility] 38[address] Madeleine Page , Left breast mass Mammography SOCK LINER, VASCULAR SURGERY PHYSICIAN 3850 [facility] [address] [place] [address] [phone] Social History Tobacco Use Types Packs/Day Years [...] PM CST Left breast pathology fibroadenoma. LOGAN EXTINGUISHER SPRINKLER INSPECTOR Madeleine Page APRN, CNP - 06/03/2019 2:15 PM CST Left breast biopsy pathology fibroadenoma and stromal fibrosis. Start screening mammogram at age 38.Sent [employer] message. MS-NAWAF EXTINGUISHER SPRINKLER INSPECTOR documented in this encounter Plan of Treatment Not on filedocumented as of this encounter Procedures Procedure Name Priority Date/Time Associated Diagnosis Comme nts MM US BX BREAST LT Routine 06/03/2019 2:34 PM Left breast mass Results for this FIRE EXTINGUISHER SPRINKLER INSPECTOR procedure are i n the results section. SURGICAL PATHOLOGY, Routine 06/03/2019 2:34 PM Left breast mas s Results for this BREAST FIRE EXTINGUISHER SPRINKLER INSPECTOR procedure are i n the results section. documented in this encounter Results MM US Bx Breast Lt (06/03/2019 2:34 PM FIRE EXTINGUISHER SPRINKLER INSPECTOR) Anatomical Region Laterality Modality Breast Left Ultrasound Specimen (Source) Anatomical Collection Method Collection Time Re ceived Time Location / / Volume Laterality 06/03/2019 2:11 PM FIRE EXTINGUISHER SPRINKLER INSPECTOR Impressions 06/05/2019 10:46 AM FIRE EXTINGUISHER SPRINKLER INSPECTOR ULTRASOUND GUIDED BREAST BIOPSY ? HISTORY: ??Palpable [...] ERIC Surgical Path, Breast (06/03/2019 2:34 PM FIRE EXTINGUISHER SPRINKLER INSPECTOR) Component Value Ref Test Analysis Performed At [facility] gist Range Method Time Signature Case Report Surgical Pathology ?Case: [id number] ? 06/04/2019 EPISCOPAL Authorizing Provider: ??Madeleine Azevedo APRN, CNP Collected: ? 06/03/2019 02:34 PM ? 1:42 PM FIRE EXTINGUISHER SPRINKLER INSPECTOR LABORATOR Y Ordering Location: ? [place] [address] ? Received: ?06/03/2019 03:50 PM ? Mammography ? Pathologist: ? Avtar Martinez MD ? Specimen: ?Breast, left, 12 o'clock ultrasound ? FINAL A. Breast, left, 12 o'clock ultrasound, biopsy: 06/04/2019 EPISCOPAL Electronically DIAGNOSIS ?? Fibroadenoma and stromal fibrosis 1:4 2 PM FIRE EXTINGUISHER SPRINKLER INSPECTOR LABORATORY signed by Avtar Martinez MD has reviewed this case and concurs with t elsie diagnosis. MD Joesph on 06/04/2019 a t 1:42 PM Gross A. The specimen is received in formalin and labeled with the patient's name and Breast, left, 12 o'clock ultrasound.?? The specimen consists of 2.8 x 0.6 x 0.3 cm aggregate of multiple entangled and f 08/2019 EPISCOPAL Description ragmented landeros-yellow cores o f soft tissue.?? The specimen is inked green.?? The specimen was collected and placed in formalin at 2:33 PM, 06/03/2019.?? The specimen is entirely submitted in 1 cassette. SH 1:42 PM FIRE EXTINGUISHER SPRINKLER INSPECTOR LABORATORY Clinical palpable 06/04/2019 EPISCOPAL Information 1:42 PM FIRE EXTINGUISHER SPRINKLER INSPECTOR LABORATORY Microscopic Microscopic 06/04/2019 EPISCOPAL Description examination is 1:42 PM FIRE EXTINGUISHER SPRINKLER INSPECTOR LABORATORY performed. Embedded 06/04/2019 EPISCOPAL Images 1:42 PM FIRE EXTINGUISHER SPRINKLER INSPECTOR LABORATORY Specimen Anatomical Collection Method Collection Time Receive d Time (Source) Location / / Volume Laterality Tissue BREAST STRUCTURE / 06/03/2019 2:34 PM 07/2019 3:50 Unknown FIRE EXTINGUISHER SPRINKLER INSPECTOR PM FIRE EXTINGUISHER SPRINKLER INSPECTOR Madeleine Page APRN, VASCULAR SURGERY PHYSICIAN LAB PATHOLOGY Performing Organization Address City/State/ZIP Code Phon e Number [facility] [address] [place] [address] documented in this encounter Visit Diagnoses Diagnosis Left breast mass Lump or mass in breast documented in this encounter Administered Medications Inactive Administered Medications - up to 3 most recent administrations Medication Order MAR Action Action Date Dose Rate Site lidocaine (XYLOCAINE) 1 % Given 06/03/2019 3:00 PM FIRE EXTINGUISHER SPRINKLER INSPECTOR 10 mL Other injection 10 mL 10 mL, Subcutaneous, ONCE, On Sun06/03/19 at 1500, For 1 dose lidocaine-epinephrine 1 %-1:[id number] Given 06/03/2019 3:00 PM FIRE EXTINGUISHER SPRINKLER INSPECTOR 6 mL Other injection 6 mL 6 mL, Subcutaneous, ONCE, On Sun06/03/19 at 1500, For 1 dose documented in this encounter Care Teams Laundry Pricing Clerk Relationship Specialty Start Date End Date Kristine Mendez MD PCP - General 01/01/14 [address] [place] [address] documented as of this encounter
--- OUTSIDE RECORDS SUMMARY | 2021-12-26 08:19 | XMS_ITS | Encounter Summary ---
:1985 Author Organization [facility] Address [address] [place] [address] Care Team Providers Name Role Phone Jeri García MD Primary Care Provider Encounter Details Date Type Department Care Team Description 12/26/2005 PN Conversion Only [facility] [address] [address] [place] [address] Social History Tobacco Use Types Packs/Day Years Used Date Smoking Tobacco: Never Assessed Sex Assigned at Date Recorded Not on file documented as of this encounter Plan of Treatment Not on filedocumented as of this encounter Visit Diagnoses Not on filedocumented in this encounter Care Teams Ham Clerk Relationship Specialty Start Date End Date Jeri García MD PCP - General 08/02/10 09/06/11 [address] [place] [id number] documented as of this encounter
--- OUTSIDE RECORDS SUMMARY | 2021-12-26 08:19 | XMS_ITS | Encounter Summary ---
:1985 Author Organization [facility] Address [address] [place] [address] Care Team Providers Name Role Phone Jeri García MD Primary Care Provider Encounter Details Date Type Department Care Team Description 06/23/[address] [facility] 38[address] Twila Collier MD Dermatology [address] [facility] [address] [facility] [place] [address] [place], [place] [address] [phone] Social History Tobacco Use Types Packs/Day Years [...] 1140 Note Time: 06/23/05 0001 Status: Signed Order Desk Caller: Twila Collier MD (Physician) NAME: YAMILET DAILY MR: [id number] ACCT: [id number] VISIT: [id number] DICTATING CLINICIAN: TWILA COLLIER MD JOB: [id number] CLINIC PROGRESS NOTE DATE OF VISIT: 06/23/2005 SUBJECTIVE: Vlyxak-xou-rqkk-old female presents in followup for acne. I [...] follow up with me in two months. RSH:[id number] C: 06/23/05 12:15 DOCUMENT: [id number] IBLE BABYSITTER documented in this encounter Plan of Treatment Not on filedocumented as of this encounter Visit Diagnoses Not on filedocumented in this encounter Care Teams Retail Sales Associate Seasonal Relationship Specialty Start Date End Date Jeri García MD PCP - General 08/02/10 09/06/11 [address] [place] [address] documented as of this encounter
--- OUTSIDE RECORDS SUMMARY | 2021-12-26 08:19 | XMS_ITS | Encounter Summary ---
:1985 Author Organization [employer] Address [address] [place] [address] Care Team Providers Name Role Phone Unavailable Primary Care Provider Unavailable Reason for Visit Reason Comments Nausea Abdominal Pain Encounter Details Date Type Department Care Team Description [facility]/26[facility]2012 [facility], UTI (urinary tract infection ) (Primary Dx); [address] Erwin Akins PA-C Abdominal pain; [place] [address] [address] Nausea alone [phone] [place] RE[place] [id number] Social History Tobacco Use Types Packs/Day Years Used Date Smoking Tobacco: Never Alcohol Use Standard Drinks/Week Comments No 0 (1 standard drink = 0.6 oz pure alcoho l) Sex Assigned at Date Recorded Not on file documented as of this encounter Last Filed Vital Signs Vital Sign Reading Time Taken Comments Blood Pressure 124/86 06/26/2012 10:55 AM HAND STAPLER Pulse 96 06/26/2012 10:55 AM HAND STAPLER Temperature 36.6 ??C (97.9 ??F) 06/26/2012 10:55 AM HAND STAPLER Respiratory Rate - - Oxygen Saturation - - Inhaled Oxygen Concentration - - Weight 55.8 kg (123 lb) 06/26/2012 10:55 AM HAND STAPLER Height - - Body Mass Index 18.03 [...] Rico Hester PA-C - 06/26/2012 12:06 PM HAND STAPLER 18-year-old female patient presents with four-day history [...]
--- OUTSIDE RECORDS SUMMARY | 2021-12-26 08:19 | XMS_ITS | Encounter Summary ---
:1985 Author Organization [facility] Address [address] [place] [address] Care Team Providers Name Role Phone Jeri García MD Primary Care Provider Encounter Details Date Type Department Care Team Description 07/09/2008 PN Conversion Only [facility] Lidia Aquino APRN, [address] [place] [address] [place] [address] (Wo rk) Social History Tobacco [...] on filedocumented in this encounter Care Teams Cottonseed Meat Presser Relationship Specialty Start Date End Date Jeri García MD PCP - General 08/02/10 09/06/11 [address] [place] [id number] documented as of this encounter
--- OUTSIDE RECORDS SUMMARY | 2021-12-26 08:19 | XMS_ITS | Encounter Summary ---
:1985 Author Organization [email or web address] Address [address] [place] [address] Care Team Providers Name Role Phone Unavailable Primary Care Provider Unavailable Reason for Visit Reason Comments LEG PAIN Encounter Details Date Type Department Care Team Description 09/22/2011 Telephone [facility] Chanel Herman PA-C LEG PAIN [address] [place] [address] [place] [address] [phone] (Wo rk) Social History Tobacco Use Types [...]
--- OUTSIDE RECORDS SUMMARY | 2021-12-26 08:19 | XMS_ITS | Encounter Summary ---
:1985 Author Organization [facility] Address [address] [place] [address] Care Team Providers Name Role Phone Jeri García MD Primary Care Provider Encounter Details Date Type Department Care Team Description 04/19/2005 Office Visit [facility] 38[address] Twila Collier MD Dermatology 3800 [facility] [address] [place] [address] [place], [place] [address] [phone] Social History Tobacco Use Types Packs/Day Years [...] 1020 Note Time: 04/19/05 0001 Status: Signed Civil Estimator: Twila Collier MD (Physician) NAME: YAMILET DAILY MR: [id number] ACCT: [id number] VISIT: [id number] DICTATING CLINICIAN: TWILA COLLIER MD JOB: [id number] CLINIC PROGRESS NOTE DATE OF VISIT: 04/19/2005 [...] a half months. CC: MARIANO BRAUN PA-C [facility]:[id number] C: 04/19/05 13:44 DOCUMENT: [id number] PATIONAL HYGIENIST documented in this encounter Plan of Treatment Not on filedocumented as of this encounter Visit Diagnoses Not on filedocumented in this encounter Care Teams Rehabilitation Consultant Relationship Specialty Start Date End Date Jeri García MD PCP - General 08/02/10 09/06/11[address] [place] [address] documented as of this encounter
--- OUTSIDE RECORDS SUMMARY | 2021-12-26 08:19 | XMS_ITS | Encounter Summary ---
:1985 Author Organization [facility] Address [address] [place] [address] Care Team Providers Name Role Phone Kristine Mendez MD Primary Care Provider Encounter Details Date Type Department Care Team Description 01/01/2014 Lab Visit [facility] Thyroid mass; [address] [facility] Lymphadenopathy [place], [place] [address] Social History Tobacco Use Types Packs/Day Years [...] Results (ABNORMAL) Differential (01/01/2014 11:02 AM CDT) [facility] Method Time Signature Absolute 1.6 (L) 1.8 [...] - 01/01/2014 11:19 AM CDT Performed at [facility], [address] [place] [address] Kristine Mendez MD LAB_1 Performing Organization Address [facility] Phon e Number HP CONVERSION HIV ANTIBODY (01/01/2014 11:02 AM CDT) athologist Signature HIV 1/HIV 2 Non-React Non-Reacti HP CONVERSION ve Specimen Anatomical Collection Method Collection Time Receive d Time (Source) Location / / Volume Laterality 01/01/2014 11:02 01/01/2014 3:54 AM CDT PM CDT Kristine Mendez MD LAB_1 Performing Organization Address [facility] Phon e Number HP CONVERSION Laporte Test (01/01/2014 11:02 AM CDT) [facility] Method Time Signature Mononucleosis Negative Negative HP CONVERSION Screen Specimen Anatomical Collection Method Collection Time Receive d Time (Source) Location / / Volume Laterality 01/01/2014 11:02 01/01/2014 AM CDT 11:02 AM CDT Narrative HP CONVERSION - 01/01/2014 11:14 AM CDT Performed at [facility], [address] [place] [address] Kristine Mendez MD LAB_1 Performing Organization Address [facility] Phon e Number HP CONVERSION Antithyroid Peroxidase (01/01/2014 11:02 AM CDT) athologist Signature Thyroid 2.8 0.0 - 9.0 HP CONVERSION Peroxidase (TPO) Antibodies Specimen Anatomical Collection Method Collection Time Receive d Time (Source) Location / / Volume Laterality 01/01/2014 11:02 01/01/2014 4:01 AM CDT PM CDT Narrative HP CONVERSION - 01/02/2014 2:51 PM CDT Performed at [facility] [address] [place] [address] Kristine Mendez MD LAB_1 Performing Organization Address [...] - 01/01/2014 11:19 AM CDT Performed at [facility], [address] [place] [address] Kristine Mendez MD LAB_1 Performing Organization Address City/State/ZIP Code Phon e Number HP CONVERSION Free T4 (01/01/2014 11:02 AM CDT) athologist Signature Thyroxine, Free 1.1 0.8 - 1.8 HP CONVERSION ng/dL Specimen Anatomical Collection Method Collection Time Receive d Time (Source) Location / / Volume Laterality 01/01/2014 11:02 01/01/2014 3:54 AM CDT PM CDT Kristine Mendez MD LAB_1 Performing Organization Address City/[facility] Phon e Number HP CONVERSION THYROID STIMULATING [...] nodes documented in this encounter Care Teams Supervisor Dog License Officer Relationship Specialty Start Date End Date Kristine Mendez MD PCP - General 01/01/14 [address] [address] [address] [address] documented as of this encounter
--- OUTSIDE RECORDS SUMMARY | 2021-12-26 08:19 | XMS_ITS | Encounter Summary ---
:1985 Author Organization [facility] Address [address] [place] [address] Care Team Providers Name Role Phone Unavailable Primary Care Provider Unavailable Reason for Visit Reason Comments Patient Calling Back Encounter Details Date Type Department Care Team Description 10/02/2011 Telephone [facility] Chanel Herman, Patient Calling Back [address] [place], [place] [id number] [address] [facility] [phone] [place], [place] [address] (Wo rk) Social History [...] - 10/04/2011 8:47 AM CDT LM at [phone] that if pt is having sx of [...] can be used. Please call Yamilet at [phone] for advise and recommendation. Okay to leave [...] what you recommended. She uses [facility] on [address]. Please let her know on her cell phone at [phone].. Kiley Ndiaye - 10/02/2011 11:15 AM CDT t calling to speak to nurse about possible reaction ( pain in legs) to control medication. documented in this encounter Plan of Treatment Not on filedocumented as of this encounter Visit Diagnoses Not on filedocumented in this encounter
--- OUTSIDE RECORDS SUMMARY | 2021-12-26 08:19 | XMS_ITS | Encounter Summary ---
:1985 [facility] Address [address] [place] [address] Care Team Providers Name Role Phone Unavailable Primary Care Provider Unavailable Encounter Details Date Type Department Care Team Description 06/26/2012 Lab Visit [facility] Abdominal pain [address] [place] [id number] Social History Tobacco Use Types Packs/Day Years [...] 06/26/2012 11:33 Result s for this AM BASKET MACHINE OPERATOR procedure are i n the results section. URINALYSIS ROUTINE, Routine 06/26/2012 11:33 Abdominal pain Re sults for this MICRO/CULTURE IF POS AM BASKET MACHINE OPERATOR procedu re are in the results section. SEXUALLY TRANSMITTED Routine 06/26/2012 11:33 Abdominal pain R esults for this DISEASE PROBE AM BASKET MACHINE OPERATOR procedure are in the results section. URINE CULTURE Routine 06/26/2012 11:33 Results fo r this AM BASKET MACHINE OPERATOR procedure are i n the results section. TEST Routine 06/26/2012 11:33 Abdominal pain Results for this (URINE) AM BASKET MACHINE OPERATOR procedure are i n the results section. documented in this encounter Results Sexually Transmitted Disease Probe (06/26/2012 11:33 AM BASKET MACHINE OPERATOR) Component Value Ref Test Analysis Performed At [facility] Range Method Time Signature Chlamydia Chlamydia HP CONVERSION Trach DNA trachomatis NEGATIVE by DNA amplification GC DNA Neisseria HP CONVERSION gonorrhea NEGATIVE by DNA amplification. Specimen (Source) Anatomical Collection Method Collection Time Re ceived Time Location / / Volume Laterality Urine for 06/26/2012 11:33 molecular AM BASKET MACHINE OPERATOR testing: Rico Hester PA-C LAB_1 Performing Organization Address [facility] Phon e Number HP CONVERSION Urine Culture (06/26/2012 11:33 AM BASKET MACHINE OPERATOR) Patholo gist Method Time Signature Urine Culture Mixed gram HP CONVERSION positive & negative organisms. <10,000 cfu/mL Specimen (Source) Anatomical Collection Method Collection Time Re ceived Time Location / / Volume Laterality Urine: 06/26/2012 11:33 AM BASKET MACHINE OPERATOR Rico Hester PA-C LAB_1 Performing Organization Address [facility] Code Phon e Number HP CONVERSION (ABNORMAL) URINE MICROSCOPIC (06/26/2012 11:33 AM BASKET MACHINE OPERATOR) Patholo gist Method Time Signature Urine WBC [...] / Volume Laterality 06/26/2012 11:33 06/26/2012 AM BASKET MACHINE OPERATOR 11:33 AM BASKET MACHINE OPERATOR Narrative HP CONVERSION - 06/26/2012 11:49 AM BASKET MACHINE OPERATOR [place] [address] Rico Hester PA-C LAB_1 Performing Organization Address [facility] Phon e Number HP CONVERSION Test (Urine) (06/26/2012 11:33 AM BASKET MACHINE OPERATOR) Analysis Performed At Patho logist Time Signature Urine Negative HP CONVERSION Test Specimen Anatomical Collection Method Collection Time Receive d Time (Source) Location / / Volume Laterality 06/26/2012 11:33 06/26/2012 AM BASKET MACHINE OPERATOR 11:33 AM BASKET MACHINE OPERATOR Narrative HP CONVERSION - 06/26/2012 11:42 AM BASKET MACHINE OPERATOR Performed at [place] [id number] Rico J Kacie PA-C LAB_1 Performing Organization Address City/[facility]/ZIP Code Phon e Number HP CONVERSION (ABNORMAL) URINALYSIS ROUTINE, MICRO/CULTURE IF POS (06/26/2012 11:33 AM BASKET MACHINE OPERATOR) [facility] Method Time Signature Urine Type Urine:clean HP [...] U Specific <=1.005 1.005 - HP CONVERSION Meherrin 1.030 Urobilinogen Negative Negative HP CONVERSION Urine Eu/dL Specimen Anatomical Collection Method Collection Time Receive d Time (Source) Location / / Volume Laterality Urine: 06/26/2012 11:33 06/26/2012 AM BASKET MACHINE OPERATOR 11:33 AM BASKET MACHINE OPERATOR Narrative HP CONVERSION - 06/26/2012 11:49 AM BASKET MACHINE OPERATOR Performed at [facility], [address] [place] [address] Rico Hester PA-C LAB_1 Performing Organization Address City/[facility] Code Phon e Number HP CONVERSION documented in this encounter Visit Diagnoses Diagnosis Abdominal pain documented in this encounter
--- OUTSIDE RECORDS SUMMARY | 2021-12-26 08:19 | XMS_ITS | Encounter Summary ---
:1985 Author Organization [facility] Address [address] [place] [address] Care Team Providers Name Role Phone Jeri García MD Primary Care Provider Encounter Details Date Type Department Care Team Description 05/10/2005 PN Conversion Only [place] Mariano Lennon PA-C [address] [place] [address] [place] [address] (Wo rk) Social History Tobacco Use Types Packs/Day Years Used Date Smoking Tobacco: Never Assessed Sex Assigned at Date Recorded Not on file documented as of this encounter Plan of Treatment Not on filedocumented as of this encounter Procedures Procedure Name Priority Date/Time Associated Diagnosis Comme nts POTASSIUM Routine 05/10/2005 3:25 PM Results f or this GAS MANAGER procedure are i n the results section . documented in this encounter Results Potassium (05/10/2005 3:25 PM GAS MANAGER) P athologist Signature Potassium 4.0 3.5 - 5.2 HP CONVERSION meq/L Specimen (Source) Anatomical Collection Method Collection Time Re ceived Time Location / / Volume Laterality 05/10/2005 3:25 PM GAS MANAGER Mariano Braun PA-C LAB_1 Performing Organization Address City/State/ZIP Code Phon e Number HP CONVERSION documented in this encounter Visit Diagnoses Not on filedocumented in this encounter Care Teams Systems Development Consultant Relationship Specialty Start Date End Date Jeri García MD PCP - General 08/02/10 09/06/11 [address] [place] [address] documented as of this encounter
--- OUTSIDE RECORDS SUMMARY | 2021-12-26 08:19 | XMS_ITS | Encounter Summary ---
:1985 Author Organization [facility] Address [address] [place] [address] Care Team Providers Name Role Phone Unavailable Primary Care Provider Unavailable Encounter Details Date Type Department Care Team Description 07/01/[address] Scan [address] [place], [place] [address] Social History Tobacco Use Types Packs/Day Years [...]
--- OUTSIDE RECORDS SUMMARY | 2021-12-26 08:19 | XMS_ITS | Encounter Summary ---
:1985 Author Organization [facility] Address [address] [place] [address] Care Team Providers Name Role Phone Jeri García MD Primary Care Provider Encounter Details Date Type Department Care Team Description 01/14/2009 Office Visit [facility] [address] Vanessa Mckay MD Clinic [address] [facility] [address] [place] [address] [place], [place] [address] [phone] Social History Tobacco Use Types Packs/Day Years Used Date Smoking Tobacco: Never Alcohol Use Standard Drinks/Week Comments No 0 (1 standard drink = 0.6 oz pure alcoho l) Sex Assigned at Date Recorded Not on file documented as of this encounter Progress Notes Vanessa Moseley - 01/14/2009 12:01 AM CDT Progress Notes signed by Vanessa Moseley RN at 01/14/09 1544 Author: Vanessa Moseley RN Service: (none) Author Type: Registered Nurse Filed: 01/14/09 0000 Note Time: 01/14/09 0001 Status: Signed Back Hoe Machine Operator: Vanessa Moseley RN (Registered Nurse) Travel Clinic Initial Visit Patient is seen in Travel Clinic individually for travel education and counseling. Barrier(s) to care: None. TRAVEL PLANS Patient states they are planning to travel to: [place], in [facility] and [place], [place] for 3 weeks from [facility] to [facility] in [place] and malaria areas, [facility], [facility] and rural areas, [place] in [facility]] and south into [facility] Plans include travel to and/or lodging at: rural areas, urban areas, unsure of exact location High Risk Areas: Patient is not traveling to Yellow Fever risk area. Patient is traveling to Malaria risk area off and on over 155 days. Reviewed a Malaria risk map with the patient and they were given a copy. Departure Date: 03/08/2009 Estimated Length of Stay: up to 5 months. While traveling, patient plans to be staying at: building, hotel, Purpose of Travel: mission trip--interacting with people. HEALTH HISTORY : Patient states she is not . Patient is not breast feeding. Medications: Reviewed and updated today on Health Profile in the patients electronic medical record. Previous Health History: Previous health history was reviewed. No problems relevant to travel were identified. PATIENT EDUCATION Patient was given verbal and/or written information about: Danny Influenza, Dengue Fever, Diphtheria/Tetanus, Hepatitis A, Hepatitis B, HIV, Influenza, Moldovan Encephalitis, Leishmaniasis, Malaria, Polio, Rabies--pre-exposure schedule, Rabies--post-exposure protocol, Schistosomiasis, Sexually Transmitted Diseases, Tickborne Illnesses, Travax/CDC information, Traveler's Diarrhea, Tuberculosis, Typhoid, Chikungunya Fever, H1N1 flu Patient advised to establish primary MD in country. group she is with has information Reviewed vaccine schedule and efficacy. Patient was also provided information about health care and insurance information while traveling abroad. Patient appears to understand all the information provided. IMMUNIZATIONS Patient states routine vaccines are current for age. Patient declines the following vaccines: Influenza (will do at work), J-E #1, Rabies, pre-exposure #1 Patient was given the following immunizations per clinic protocol: eIPV, Hepatitis B #1, Tdap, Ty2la, Reaction to Vaccine: Patient had no reaction. PRESCRIPTIONS Reviewed medication options for itinerary. Risks, benefits and side effects were discussed. The following prescriptions/OTC medications were given: Doxycycline. Azithromycin. Imodium. (Patient was instructed to follow package directions for Imodium dose.) Patient educational information regarding these prescribed medications was provided. PLAN Laboratory Studies: No labs ordered. Return To Clinic: For Hepatitis B #2 vaccine in days. also needs PPD, don't schedule appt on a Time spent in individual counselin minutes. *SH~TRAVEL~INT ~[place] Note completed on: 01/14/2009 3:42 PM documented in this encounter Plan of Treatment Not on filedocumented as of this encounter Visit Diagnoses Not on filedocumented in this encounter Care Teams Cosmetic Assembler Relationship Specialty Start Date End Date Jeri García MD PCP - General 08/02/10 09/06/11 [address] [place] [address] documented as of this encounter
--- OUTSIDE RECORDS SUMMARY | 2021-12-26 08:19 | XMS_ITS | Encounter Summary ---
:1985 Author Organization [facility] Address [address] [place] [address] Care Team Providers Name Role Phone Unavailable Primary Care Provider Unavailable Reason for Visit Reason Comments Refill Encounter Details Date Type Department Care Team Description 12/10/2011 Refill [facility] Chanel Mix PA-C Refill [address] [facility] [place] [address] [place] [address] [phone] (Wo rk) Social History Tobacco Use Types [...]
--- OUTSIDE RECORDS SUMMARY | 2021-12-26 08:19 | XMS_ITS | Encounter Summary ---
:1985 Author Organization [facility] Address [address] [place] [address] Care Team Providers Name Role Phone Unassigned, Provider Primary Care Provider Unavailable Reason for Visit Reason Comments SORE THROAT,NURSE Encounter Details Date Type Department Care Team Description 12/13/2006 Office Visit [facility] Acute P haryngitis (Primary Department Dx) [address] [place], [place] [address] Social History Tobacco Use [...] symptoms or history includes: NONE Phone number: [phone] (home) [phone] (work), alternate number . A: Sore Throat [...] SCREEN (WAITI [[id number]] (12/13/2006 1:59 PM CDT) [employer] Method Time Signature Patient Home None [facility] Phone # Patient Work None [facility] Phone # Grp A Rapid Negative NEG [facility] Screen Grp A Culture Negative [facility]G [facility] Final Specimen Anatomical Collection Method Collection Time Receive d Time (Source) Location / / Volume Laterality 12/13/2006 1:59 PM 7 2:00 CDT PM CDT Myrna Torres MD LAB_1 Performing Organization Address City/State/ZIP Code Phon e Number [facility] [phone] [facility] [address] [place] [phone] documented in this encounter Visit Diagnoses Diagnosis Acute pharyngitis - Primary documented in this encounter Care Teams Fur Tanner Relationship Specialty Start Date End Date Unassigned, Provider PCP - General 01/31/00 08/01/10 [address] [place] [address] documented as of this encounter
--- OUTSIDE RECORDS SUMMARY | 2021-12-26 08:19 | XMS_ITS | Encounter Summary ---
:1985 Author Organization [facility] Address [address] [place] [address] Care Team Providers Name Role Phone Megan García MD Primary Care Provider Reason for Visit Reason Comments Other Encounter Details Date Type Department Care Team Description 11/03/2004 Telephone [employer] [facility] [employer] [place], Message Other [address] [place] [address] Social History Tobacco Use Types Packs/Day Years Used Date Smoking Tobacco: Never Assessed Sex Assigned at Date Recorded Not on file documented as of this encounter Progress Notes Khushi Gibson - 11/03/2004 10:31 AM CDT Phone Note filed by Khushi Gibson RN at 08/15/101912 Author: Khushi Gibson RN Service: (none) Author Type: (none) Filed: 08/15/101912 Note Time: 11/03/04 1031 Status: Signed Scrap Wheeler: Khushi Gibson RN (Registered Nurse) Pt saw [...] helped. Let pt know your recommendations at [phone]. Pharm is [facility] in [place] [phone]. Created on 03Nov2004 10:31am by KHUSHI GIBSON On 03Nov2004 12:35pm MEGAN GARCÍA wrote: we could try doxycyline instead, 100 mg dialy #30, 5 refills, to see if it works as well but without the discoloration. Acknowledged by MEGAN GARCÍA on 12:35pm On 03Nov2004 1:23pm BOBBY CENTENO wrote: Rx called in as above, and left message on pt voice mail. L REGULATOR documented in this encounter Plan of Treatment Not on filedocumented as of this encounter Visit Diagnoses Not on filedocumented in this encounter Care Teams Multiple Games Dealer Relationship Specialty Start Date End Date Megan García MD PCP - General 08/02/10 09/06/11 [address] [place] [address] documented as of this encounter
--- OUTSIDE RECORDS SUMMARY | 2021-12-26 08:19 | XMS_ITS | Encounter Summary ---
:1985 Author Organization [facility] Address [address] [place] [address] Care Team Providers Name Role Phone Jeri García MD Primary Care Provider Encounter Details Date Type Department Care Team Description 08/30/2010 PN Conversion Only [facility] Jeri Stack, [address] [place] [address] [address] [phone] [place] [id number] (Wo rk) Social History Tobacco Use Types Packs/Day Years Used Date Smoking Tobacco: Never Alcohol Use Standard Drinks/Week Comments No 0 (1 standard drink = 0.6 oz pure alcoho l) Sex Assigned at Date Recorded Not on file documented as of this encounter Plan of Treatment Not on filedocumented as of this encounter Visit Diagnoses Not on filedocumented in this encounter Care Teams Electrical Maintenance Worker Relationship Specialty Start Date End Date Jeri García MD PCP - General 08/02/10 09/06/11 [place] [address] documented as of this encounter
--- OUTSIDE RECORDS SUMMARY | 2021-12-26 08:19 | XMS_ITS | Encounter Summary ---
:1985 Author Organization [facility] Address [address] [place] [address] Care Team Providers Name Role Phone Jeri García MD Primary Care Provider Encounter Details Date Type Department Care Team Description 07/09/2008 Office Visit [facility] Lidia Aquino APRN, [facility] SOYBEAN SPECIALTIES COOK [address] [facility] [address] [place] [address] [address] [address] [place] [address] [phone] (Wo rk) Social History Tobacco Use Types [...] Body Mass Index 17.21 06/27/2008 2:15 PM MANAGER ASSESSMENT documented in this encounter Progress Notes Lidia Aquino APRN, [employer] - 07/09/2008 12:01 AM CDT Progress Notes signed by AGUILA Connell at 07/16/08 1419 Author: AGUILA Connell Service: (none) Author Type: (none) Filed: 08/20/10 1324 Note Time: 07/09/08 0001 Status: Signed Monument Carver: AGUILA Connell (Nurse Practitioner) NAME: YAMILET DAILY MR#: [id number] ACCT: [id number] VISIT: [id number] DICTATING CLINICIAN: AGUILA Connell CONFIRM #: [id number] LOC: 506 CLINIC PROGRESS NOTE DATE OF VISIT: 07/09/2008 SUBJECTIVE: : 1985. A 23-year-old in clinic today because she just has not been feeling well for about 3 weeks. She describes having quite a productive cough, a runny nose, headache every day. She has also been nauseated recently. She was recently out of the country in [place], got back about a month ago and [...] into the illness she went to a [facility] clinic and was tested negative for strep, [...] is in agreement with the above plan. LAE:[id number] C: 07/10/08 07:13 CONFIRM #: [id number] documented in this encounter Plan of Treatment [...] 07/09/2008 3:24 PM CDT : ??Negative chest. 85457/nakia Dictating ARMANDO GOMEZ Radiologist Narrative 07/09/2008 3:24 PM CDT COMPARISON: ??None. CLINICAL HISTORY: ??23-year-old female w ith cough. Procedure Note Armando Heller MD - 07/06/2016Formattin g of this note might be different from the original. COMPARISON: None. CLINICAL HISTORY: 23-year-old female wit h cough. IMPRESSION : Negative chest. 88090/yee Dictating ARMANDO GOMEZ Radiologist Lidia Aquino PERSONNEL RESEARCH SCIENTIST, [employer] COOK RAD GD documented in this encounter Visit Diagnoses Not on filedocumented in this encounter Care Teams Livestock Exhibitor Relationship Specialty Start Date End Date Jeri García MD PCP - General 08/02/10 09/06/11 [address] [place] [address] documented as of this encounter
--- OUTSIDE RECORDS SUMMARY | 2021-12-26 08:19 | XMS_ITS | Encounter Summary ---
:1985 Author Organization [facility] Address [address] [place] [address] Care Team Providers Name Role Phone Kristine Mendez MD Primary Care Provider Encounter Details Date Type Department Care Team Description 01/01/2014 Imaging [facility] Thyroid mass [address] [place] [address] Social History Tobacco Use Types Packs/Day Years [...] to confirm the nature. Kristine Mendez MD [facility] documented in this encounter Visit Diagnoses Diagnosis Thyroid mass ([facility]) Unspecified disorder of thyroid documented in this encounter Care Teams Water Pump Assembler Relationship Specialty Start Date End Date Kristine Mendez MD PCP - General 01/01/14 [address] [place] [address] documented as of this encounter
--- OUTSIDE RECORDS SUMMARY | 2021-12-26 08:19 | XMS_ITS | Encounter Summary ---
:1985 Author Organization [facility] Address [address] [place] [address] Care Team Providers Name Role Phone Kristine Mendez MD Primary Care Provider Reason for Visit Reason Comments RESULTS, TEST Encounter Details Date Type Department Care Team Description 01/01/2014 Telephone [facility] Pete Menedz MD RESULTS, TEST Medicine [address] [facility] [address] [place] [address] [place] [address] [phone] Social History Tobacco Use Types Packs/Day Years [...] on filedocumented in this encounter Care Teams Indirect Fire Infantryman Relationship Specialty Start Date End Date Kristine Mendez MD PCP - General 01/01/14 [address] [address] [place] [address] documented as of this encounter
--- OUTSIDE RECORDS SUMMARY | 2021-12-26 08:19 | XMS_ITS | Encounter Summary ---
:[address] Address [address] [place] [address] Care Team Providers Name Role Phone Kristine Mendez MD Primary Care Provider Reason for Visit Reason Comments MASS Encounter Details Date Type Department Care Team Description 01/01/2014 Office Visit [facility] Kristine Mendez, Thy elise whelan (Primary Dx); Medicine [facility] [address] [facility] [address] [place] [address] [place] [phone] [address] Social History Tobacco Use Types Packs/Day Years [...] included. Please call the Endocrinology dept. at [phone] to schedule your appointment. Labs today Thyroid [...] about any medicines you take. This includes xsru-bbr-ukcjngt medicines. ?? Wear a medical alert bracelet [...] Where can you learn more? Go to [email or web address]/[email or web address]. Enter E754 in the search box to learn more about Thyroid Nodules: After Your Visit. Last Revised: October 10, 2012 ?? [id number] [employer]. Care instructions adapted under license by your healthcare professional. If you have questions about a medical condition or this instruction, always ask your healthcare professional. 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 Smoking status: Never Smoker ??? Smokeless tobacco: Not on file ??? Alcohol Use: No Comment: rare ??? Drug Use: No ??? Sexual Activity: Partners: Male Control/ Protection: Other Topics Concern ??? Exercise Yes ??? Seat Belt Yes ??? Special Diet No ??? 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 [facility] given on [facility] nodules. Orders Placed This Encounter Procedures ??? US Thyroid (Standard) ??? Thyroid Stimulating Hormone ??? Free T4 ??? Complete Blood Count W/Diff ??? Thyroid Peroxidase (Tpo) Antibody ??? Mononucleosis Screen ??? HIV Antibody ??? ENDOCRINOLOGY CONSULT ADULT (AMB) Patient Instructions Please call the Endocrinology dept. at [phone] to schedule your appointment. Labs today Thyroid [...] about any medicines you take. This includes fyeq-cgb-rdsmplz medicines. ?? Wear a medical alert bracelet [...] Where can you learn more? Go to [email or web address]/patiented. Enter E754 in the search box to learn more about Thyroid Nodules: After Your Visit. Last Revised: October 10, 2012 ?? [id number] [employer]. Care instructions adapted under license by your healthcare professional. If you have questions about a medical condition or this instruction, always ask your healthcare professional. [employer] disclaims any warranty or liability for your [...] nodes documented in this encounter Care Teams Volleyball Coach Relationship Specialty Start Date End Date Kristine Mendez MD PCP - General 01/01/14 [address] [place] [address] documented as of this encounter
--- OUTSIDE RECORDS SUMMARY | 2021-12-26 08:19 | XMS_ITS | Encounter Summary ---
:1985 Author Organization [facility] Address [address] [place] [address] Care Team Providers Name Role Phone Jeri García MD Primary Care Provider Encounter Details Date Type Department Care Team Description 07/09/2008 PN Conversion Only [facility] CONVERSIO N Lidia Aquino APRN, [address] [email or web address] [address] [facility] [address] [place], [place] [address] (Wo rk) Social History [...] Comment: Patient: YAMILET DAILY Culture, Stool ?Collected: ??[id number] ??[id number] Source: Stool ? Processed: ?2055 ? SENS Final Report ------ ?[id number] ??[id number] No Salmonella, Shigella, Campylobacter o r E coli O157 isolated Culture screened for Aeromonas, Plesiomo hung and Vibrio with negative results. If Yersinia is suspected, please submit a second culture and request for this organism. Specimen (Source) Anatomical Collection Method Collection Time Re ceived Time Location / / Volume Laterality 07/09/2008 4:36 PM CDT Lidia Aquino APRNNAWAF LAB_1 Performing Organization Address City/[facility] Code Phon e Number HP CONVERSION Mononucleosis Screen (07/09/2008 2:50 PM CDT) [facility] Method Time Signature Infectious Negative Negative HP CONVERSION Mononucleosis Screen Specimen (Source) Anatomical Collection Method Collection Time Re ceived Time Location / / Volume Laterality 07/09/2008 2:50 PM CDT Lidia Aquino APRNNAWAF LAB_1 Performing Organization Address [facility] Code Phon e Number HP CONVERSION (ABNORMAL) Complete Blood Count-W/Diff (07/09/2008 2:50 PM CDT) [facility] Method Time Signature White Blood Cell 5.4 [...] - HP CONVERSION Hemoglobin Conc 36.5 gm/dL [place] RDW 12.3 11.0 - HP CONVERSION 15.0 [...] Laterality 07/09/2008 2:50 PM CDT Lidia Aquino NAWAF KAMARA LAB_1 Performing Organization Address [facility] Phon e Number HP CONVERSION Creatinine / GFR (07/09/2008 2:50 PM CDT) athologist Signature Creatinine 0.9 0.4 - 1.3 HP CONVERSION Serum mg/dL Est GFR >60 >60 HP CONVERSION Am Comment: -East Timorese and Bgv-Qvmrvdu-Xetimal n reference range units: mL/min/1.73m2 Normal>60, moderate [...] Kenia KAMARA CNP LAB_1 Performing Organization Address [facility] Phon e Number HP CONVERSION Electrolytes [...] Kenia KAMARA CNP LAB_1 Performing Organization Address [facility] Phon e Number HP CONVERSION Parvovirus B19 [...] of specific IgM antibodi es. Performed at [facility] [address] [place] [address] Specimen (Source) Anatomical Collection Method Collection Time Re ceived Time Location / / Volume Laterality 07/09/2008 2:50 PM CDT Lidia Aquino APRN, CNP LAB_1 Performing Organization Address [facility] Phon e Number HP CONVERSION Hepatitis B Surface Antibody (07/09/2008 2:50 PM CDT) Analysis Performed At Patho logist Time Signature Hep B Surf Ab Non Reac Non Reac HP CONVERSION Specimen (Source) Anatomical Collection Method Collection Time Re ceived Time Location / / Volume Laterality 07/09/2008 2:50 PM CDT Lidia Aquino APRN, CNP LAB_1 Performing Organization Address [facility] Phon e Number HP CONVERSION Hep B Surface Antigen, No Reflex (07/09/2008 2:50 PM CDT) Analysis Performed At [facility] Time [facility] Hep B Surf Ag Negative Negative HP CONVERSION Specimen (Source) Anatomical Collection Method Collection Time Re ceived Time Location / / Volume Laterality 07/09/2008 2:50 PM CDT Lidia Kenia KAMARA CNP LAB_1 Performing Organization Address [facility] Phon e Number HP CONVERSION Urine Culture (07/09/2008 2:32 PM CDT) Analysis Performed At [facility] Time [facility] Urine Culture SEE TEXT HP CONVERSION Comment: Patient: YAMILET DAILY Culture, Urine ?Collected: ??[id number] ??[id number] Source: Clean Ca ?Processed: ??[id number] ??1432 ? 1V Final Report ------ ?[id number] ??0954 <10,000 CFU/mL gram negative andrez No further workup Specimen (Source) Anatomical Collection Method Collection Time Re ceived Time Location / / Volume Laterality 07/09/2008 2:32 PM CDT Lidia Kenia KAMARA CNP LAB_1 Performing Organization Address [facility] Phon e Number HP CONVERSION (ABNORMAL) Urinalysis Routine(Micro If Pos) (07/09/2008 2:32 PM CDT) [facility] Method Time Signature Turbidity Clear No [...] Specific 1.015 1.005 - 25 HP CONVERSION [place] Specimen (Source) Anatomical Collection Method Collection Time Re ceived Time Location / / Volume Laterality 07/09/2008 2:32 PM CDT Lidia Aquino APRN, CNP LAB_1 Performing Organization Address City/[facility]/ZIP Code Phon e Number HP CONVERSION (ABNORMAL) Urinalysis Microscopic (07/09/2008 2:32 PM CDT) [facility] Method Time Signature White Blood 0-2/HPF [...] on filedocumented in this encounter Care Teams Agricultural Equipment Design Engineer Relationship Specialty Start Date End Date Jeri García MD PCP - General 08/02/10 09/06/11 [address], [place] [address] documented as of this encounter
--- OUTSIDE RECORDS SUMMARY | 2021-12-26 08:19 | XMS_ITS | Encounter Summary ---
:1985 Author Organization [facility] Address [address] [place] [address] Care Team Providers Name Role Phone Unassigned, Provider Primary Care Provider Unavailable Reason for Visit Reason Comments CONGESTION Encounter Details Date Type Department Care Team Description 06/27/2008 Office Visit [facility] [place] (Primary Dx); [place] Ph[facility]itis [address] [place], [place] [address] Social History Tobacco Use Types Packs/Day Years Used Date Smoking Tobacco: Never Alcohol Use Standard Drinks/Week Comments No 0 (1 standard drink = 0.6 oz pure alcoho l) Sex Assigned at Date Recorded Not on file documented as of this encounter Last Filed Vital Signs Vital Sign Reading Time Taken Comments Blood Pressure 120/80 06/27/2008 2:20 PM NURSE RESEARCHER Pulse 78 06/27/2008 2:15 PM NURSE RESEARCHER Temperature 36.6 ??C (97.8 ??F) 06/27/2008 2:15 PM NURSE RESEARCHER Respiratory Rate 18 06/27/2008 2:15 PM NURSE RESEARCHER Oxygen Saturation - - Inhaled Oxygen Concentration - - Weight 54.4 kg (120 lb) 06/27/2008 2:15 PM NURSE RESEARCHER Height 176.5 cm (5' 9.5) 06/27/2008 2:15 PM NURSE RESEARCHER Body Mass Index 17.47 06/27/2008 2:15 PM NURSE RESEARCHER documented in this encounter Progress Notes Halima Jimenez - 06/27/2008 2:54 PM CST This office note has been dictated. Halima Jimenez MD E RESEARCHER Halima Jimenez - 06/27/2008 12:00 AM NURSE RESEARCHER Chief Complaint: Congestion. Subjective: Patient is a [...] a Mucinex with a cough suppressant. Objective: Nnpadi-cywe-mjac-old female who is awake, cooperative. She is [...] pharyngitis. Plan: Recommend the patient continue using rcid-ukq-yttbjgr medications, get lots of rest, take some fluids. If her throat culture is positive, will notify her and start her on antibiotic. At this time, I think it is more viral and if she has increasing symptoms, she can follow up with the primary doctor. P / A [facility] cc: E RESEARCHER documented in this encounter Plan of Treatment Not on filedocumented as of this encounter Procedures Procedure Name Priority Date/Time Associated Diagnosis Comme nts STREP GRP A, RAPID Waiting 06/27/2008 2:21 PM Pharyngitis Res ults for this SCREEN NURSE RESEARCHER procedure are i n the results section. documented in this encounter Results STREP GRP A, RAPID SCREEN (06/27/2008 2:21 PM NURSE RESEARCHER) [facility] Method Time Signature Grp A Rapid Negative [facility] Screen Grp A Culture Negative [facility] Final Specimen Anatomical Collection Method Collection Time Receive d Time (Source) Location / / Volume Laterality 06/27/2008 2:21 PM 200 9 2:30 NURSE RESEARCHER PM NURSE RESEARCHER Halima Jimenez MD LAB_1 Performing Organization Address City/State/ZIP Code Phon e Number [facility] [phone] [facility] [address] [address] documented in this encounter Visit Diagnoses Diagnosis Acute URI - Primary Acute upper respiratory infections of un specified site Pharyngitis Acute pharyngitis documented in this encounter Care Teams Carbon Brushes Assembler Relationship Specialty Start Date End Date Unassigned, Provider PCP - General 01/31/00 08/01/10 [address] [place] [address] documented as of this encounter
--- OUTSIDE RECORDS SUMMARY | 2021-12-26 08:19 | XMS_ITS | Encounter Summary ---
:1985 Author Organization [facility] Address [address] [place] [address] Care Team Providers Name Role Phone Unavailable Primary Care Provider Unavailable Reason for Visit Reason Comments LEG PAIN Encounter Details Date Type Department Care Team Description 10/09/2011 [facility] Visit [facility] Chanel Herman, Leg pain (Primary Dx) [address] [place] [address] [address] [facility] [phone] [place], [place] [address] (Wo rk) Social History Tobacco Use Types [...]
--- OUTSIDE RECORDS SUMMARY | 2021-12-26 08:19 | XMS_ITS | Encounter Summary ---
:1985 Author Organization [employer] [facility] Address [address] [place] [address] Care Team Providers Name Role Phone Unavailable Primary Care Provider Unavailable Reason for Visit Reason Comments Medication Questions Encounter Details Date Type Department Care Team Description 06/25/2012 Telephone [facility] Chanel Herman, Medication Questions [address] [place], [place] [phone] [facility] [phone] [place], [place] [address] (Wo rk) Social History [...] for the pt with Dr. Cm's advice. MOMETER TESTER ENGINE Apolonia Cm MD - 06/25/2012 8:34 PM [...] us know if she has any issues. MOMETER TESTER ENGINE Luann Suarez RN - 06/25/2012 3:30 PM [...] side effects. Pharmacy correct. Please call Yamilet Goldman([facility]) [phone] () c vm y MOMETER TESTER ENGINE Kiley Ndiaye - 06/25/2012 3:23 PM CST Pt calling to speak to nurse/ about changing control medication due to nausea from existingmedication. MOMETER TESTER ENGINE documented in this encounter Plan of Treatment Not on filedocumented as of this encounter Visit Diagnoses Not on filedocumented in this encounter
--- OUTSIDE RECORDS SUMMARY | 2021-12-26 08:19 | XMS_ITS | Encounter Summary ---
:1985 Author Organization [employer] Address [address] [place] [address] Care Team Providers Name Role Phone Jeri García MD Primary Care Provider Reason for Visit Reason Comments Other Encounter Details Date Type Department Care Team Description 07/10/2008 Telephone [facility] [place] [address] [place] [address] Social History Tobacco Use Types Packs/Day Years Used Date Smoking Tobacco: Never Alcohol Use Standard Drinks/Week Comments No 0 (1 standard drink = 0.6 oz pure alcoho l) Sex Assigned at Date Recorded Not on file documented as of this encounter [facility] Center, Message - 07/10/2008 8:02 AM CDT Phone Note filed by [employer] at 08/18/101941 Author: [employer] Service: (none) Author Type: (none) Filed: 08/18/101941 Note Time: 07/10/08801 Status: Signed Cooler Tender: [employer] (Resource) Xray Chest * PA And Left Lateral (Standard)results are now available in LastWord. Created on 10Jul2008 8:02am by ROJELIO ADKINS Acknowledged by OLEG RAMIREZ on 10:15am On 14Jul2008 1:21pm JANNET KAISER wrote: Noted. Acknowledged by JANNET KAISER on 1:21pm ROAD SHOP INSPECTOR documented in this encounter Plan of Treatment Not on filedocumented as of this encounter Visit Diagnoses Not on filedocumented in this encounter Care Teams Sports Reporter Relationship Specialty Start Date End Date Jeri García MD PCP - General 08/02/10 09/06/11 [address] [place] [address] documented as of this encounter
--- OUTSIDE RECORDS SUMMARY | 2021-12-26 08:19 | XMS_ITS | Encounter Summary ---
:1985 Author Organization [facility] Address [address] [place] [address] Care Team Providers Name Role Phone Unavailable Primary Care Provider Unavailable Encounter Details Date Type Department Care Team Description 07/21/2012 Notes/Orders [place] Kelle C Jennifer Aguilera, Cystitis [address] [facility] RACEHORSE TRAINER, DAIRY EQUIPMENT REPAIRER [place], [place] [address] Social History Tobacco Use [...] UA, NO MICROSCOPIC (07/21/2012 12:10 PM CDT) [facility] Method Time Signature Urine Color Yellow [facility] [...] PM CDT PM CDT Jennifer Alexis APRN, DAIRY EQUIPMENT REPAIRER LAB_1 Performing Organization Address City/State/ZIP Code Phon e Number [facility] [phone] [address] URINE CULTURE (07/21/2012 12:10 PM CDT) Component Value Ref Test Analysis Performed At [facility] [employer] [facility] Range Method Time Signature Specimen Urine [facility] Description Midstream Special Unspecified [facility] Requests Culture > 100,000 [facility] col/ml Escherichia coli Report Status Final [facility] 07/23/2012 Organism > 100,000 [facility] col/ml Escherichia coli Specimen Anatomical Collection Method [...] Alexis APRN, CNP LAB_1 Performing Organization Address City/State/[facility] Code [facility] e Number [facility] [phone] [address] documented in this encounter Visit Diagnoses Diagnosis Cystitis Cystitis, unspecified documented in this encounter
--- OUTSIDE RECORDS SUMMARY | 2021-12-26 08:19 | XMS_ITS | Encounter Summary ---
:1985 Author Organization [facility] Address [address] [place] [address] Care Team Providers Name Role Phone Unavailable Primary Care Provider Unavailable Encounter Details Date Type Department Care Team Description 10/02/2011 Notes/Orders [facility] [place] Beltran [facility] [place] [address] Social History Tobacco Use Types Packs/Day Years [...]
--- OUTSIDE RECORDS SUMMARY | 2021-12-26 08:19 | XMS_ITS | Encounter Summary ---
:1985 Author Organization [facility] Address [address] [place] [address] Care Team Providers Name Role Phone Jeri García MD Primary Care Provider Reason for Visit Reason Comments Other Encounter Details Date Type Department Care Team Description 03/01/[address] [facility], Message Other [address] [address] Social History Tobacco Use Types Packs/Day Years Used Date Smoking Tobacco: Never Assessed Sex Assigned at Date Recorded Not on file documented as of this encounter Progress [facility], Message - 03/01/2005 3:45 PM CST Phone Note filed by [employer] at 08/15/102200 Author: [employer] Service: (none) Author Type: (none) Filed: 08/15/102200 Note Time: 03/01/051544 Status: Signed Medical Technician Assistant: [employer] MESSAGE TO CARE TEAM NAME OF CALLER: anika Yamilet Goldman NAME OF CLINICIAN: Dr García MESSAGE: Pt is calling for a referral to dermatology. Pt is requesting a call-back either way to let her know if this can be done. CALL BACK PHONE #: [phone], cell BEST TIME TO CALL BACK: anytime Is it OK to leave detailed message on voicemail? yes Created on [id number] 3:45pm by PAULA VILLALTA On [id number] 4:09pm XAVIER HASKINS wrote: Referral for what condition? Acknowledged by XAVIER HASKINS on 2Nov 4:09pm On [id number] 4:17pm APRIL HOLLIDAY wrote: Pt would like to see Dermatology regarding ongoing acne. On [id number] 4:37pm XAVIER HASKINS wrote: OK to see [facility] for acne Acknowledged by XAVIER HASKINS on 2Nov05 4:37pm On [id number] 4:46pm RADHA PIRES wrote: Pt notified and will make appointment with derm. NEL SPECIALIST documented in this encounter Plan of Treatment Not on filedocumented as of this encounter Visit Diagnoses Not on filedocumented in this encounter Care Teams Staffing Account Manager Relationship Specialty Start Date End Date Jeri García MD PCP - General 08/02/10 09/06/[address] [place] [address] [place] [address] documented as of this encounter
--- OUTSIDE RECORDS SUMMARY | 2021-12-26 08:19 | XMS_ITS | Encounter Summary ---
:1985 Author Organization [facility] Address [address] [place] [address] Care Team Providers Name Role Phone Jeri García MD Primary Care Provider Reason for Visit Reason Comments Other Encounter Details Date Type Department Care Team Description 04/26/2005 Telephone [facility] [address] [facility], Message Other [address] [place], [place] [id number] Social History Tobacco Use Types Packs/Day Years Used Date Smoking Tobacco: Never Assessed Sex Assigned at Date Recorded Not on file documented as of this encounter Progress Notes Conversion, [facility] - 04/26/2005 11:49 AM CST Phone Note filed by [facility] Conversion at 08/15/102329 Author: [facility] Conversion Service: (none) Author Type: (none) Filed: 08/15/102329 Note Time: 04/26/05 1149 Status: Signed Prover: Imr Conversion Benzaclin not covered per pt..can you try a P.A? Has HP..uses [facility] in [place] [phone] Created on 26Apr2005 11:49am by ABAD CHRISTINA On 26Apr2005 12:54pm GERARDO COLLIER wrote: Deep available? Acknowledged by GERARDO COLLIER on 12:54pm On 26Apr2005 3:01pm JACKELYN FERMIN wrote: going to send prior auth for Benzaclin. Acknowledged by JACKELYN FERMIN on 3:01pm Acknowledged by ABAD CHRISTINA on 3:39pm On 24Aug2005 9:12am PRABHJOT VARGAS wrote: Prior auth for Benzaclin was denied. ATTACHER documented in this encounter Plan of Treatment Not on filedocumented as of this encounter Visit Diagnoses Not on filedocumented in this encounter Care Teams Plant Protection Superintendent Relationship Specialty Start Date End Date Jeri García MD PCP - General 08/02/10 09/06/[address] [place] [address] [address] documented as of this encounter
--- OUTSIDE RECORDS SUMMARY | 2021-12-26 08:19 | XMS_ITS | Encounter Summary ---
:1985 Author Organization [employer] Address [address] [place] [address] Care Team Providers Name Role Phone Unavailable Primary Care Provider Unavailable Reason for Visit Reason Comments INFECTION, URINARY TRACT Encounter Details Date Type Department Care Team Description 07/21/2012 Office Visit [facility] Cystitis (Primary Dx) [address] [place], [place] [address] Social History Tobacco Use [...] encounter Patient Instructions Patient InstructionsNahomi Diane, ASAD, SMOOTH PLATER - 07/21/2012 12:38 PM CDT Cystitis You [...] Read and follow all instructions from the disease control inspector before using. In order to keep yourself [...] Component Value Ref Test Analysis Performed At [facility] Range Method Time Signature Specimen Urine [facility] Description Midstream Special Unspecified [facility] Requests Culture > 100,000 [facility] col/ml Escherichia coli Report Status Final [facility] 07/23/2012 Organism > 100,000 [facility] col/ml Escherichia coli Specimen Anatomical Collection Method [...] CNP LAB_1 Performing Organization Address City/State/ZIP Code [facility] e Number [facility] [phone] [address] documented in this encounter Visit Diagnoses Diagnosis Cystitis - Primary Cystitis, unspecified documented in this encounter
--- OUTSIDE RECORDS SUMMARY | 2021-12-26 08:19 | XMS_ITS | Encounter Summary ---
:1985 Author Organization [facility] Address [address] [place] [address] Care Team Providers Name Role Phone Jeri García MD Primary Care Provider Encounter Details Date Type Department Care Team Description 12/27/2005 Office Visit [facility] [address] Twila Collier MD Dermatology [address] [facility] [address] [facility] [place] [address] [place], [place] [address] [phone] Social History Tobacco Use Types Packs/Day Years Used Date Smoking Tobacco: Never Assessed Sex Assigned at Date Recorded Not on file documented as of this encounter Progress Notes Twila Collier MD - 12/27/2005 12:01 AM CDT Progress Notes signed by Twila Collier MD at 01/23/067 Author: Twila Collier MD Service: (none) Author Type: Physician Filed: 08/19/10 1521 Note Time: 12/27/05 0001 Status: Signed Bag Maker: Twila Collier MD (Physician) NAME: YAMILET DAILY MR: [id number] ACCT: [id number] VISIT: [id number] DICTATING CLINICIAN: TWILA COLLIER MD JOB: [id number] LOC: 427 CLINIC PROGRESS NOTE DATE OF VISIT: 12/27/2005 SUBJECTIVE: This 20-year-old female presents in followup to dermatology for acne. Did not think the spironolactone has helped. Doing okay overall on amoxicillin. Does not like the topicals. OBJECTIVE: Comedonal inflammatory acne on the face. Lateral cheeks clear. Otherwise all parts of the face involved. Chest, arms, back clear of acne. ASSESSMENT: ? inflammatory with moderate severity under fair control. Patient might do well on Accutane in the future. She is currently off of control as she had said Ortho Tri-Cyclen was not helpful in the past. Also, has been on minocycline in the past but had hyperpigmentation. Doxycycline did not help. PLAN: 1. Continue amoxicillin 250 mg p.o. b.i.d. 2. Discontinue spironolactone. 3. Change topicals to Finacea and Tazorac. 4. Patient will follow up with me in approximately 6 months. She can try to wean off ?. [facility]:[id number] C: 01/03/06 07:03 DOCUMENT: [id number] documented in this encounter Plan of Treatment Not on filedocumented as of this encounter Visit Diagnoses Not on filedocumented in this encounter Care Teams Head Of Marketing Analytics Relationship Specialty Start Date End Date Jeri García MD PCP - General 08/02/10 09/06/11 [address] [place] [address] documented as of this encounter
--- OUTSIDE RECORDS SUMMARY | 2021-12-26 08:19 | XMS_ITS | Encounter Summary ---
:1985 Author Organization [facility] Address [address] [place] [address] Care Team Providers Name Role Phone Unavailable Primary Care Provider Unavailable Reason for Visit Reason Comments Abdominal Pain Encounter Details Date Type Department Care Team Description 07/01/2012 Hospital Encounter [facility] Luann Molina A bdominal pain, unspecified site; Care MD Bacterial vaginosis [address] [address] [phone] Social History Tobacco Use Types Packs/Day Years Used Date Smoking Tobacco: Never Alcohol Use Standard Drinks/Week Comments No 0 (1 standard drink = 0.6 oz pure alcoho l) Sex Assigned at Date Recorded Not on file documented as of this encounter Last Filed Vital Signs Vital Sign Reading Time Taken Comments Blood Pressure 110/74 07/01/2012 8:19 AM ATG ARCHITECT Pulse 88 07/01/2012 8:19 AM ATG ARCHITECT Temperature 36.3 ??C (97.3 ??F) 07/01/2012 8:19 AM ATG ARCHITECT Respiratory Rate 16 07/01/2012 8:19 AM ATG ARCHITECT Oxygen Saturation - - Inhaled Oxygen Concentration [...] 07/05/12 0755 Note Time: 07/01/121423 Status: Signed Pharmacist Hospital: Luann Molina MD (Physician) NAME: YAMILET LORA MR#: [id number] CSN: [id number] AUTHENTICATING CLINICIAN: Luann Molina MD CONFIRM #: [id number] LOC: 520 URGENT CARE PROGRESS NOTE DATE [...] agreement the plan. DAVID:MEDQ C: CONFIRM #: [id number] ARCHITECT Luann Molina MD - 07/01/2012 1:18 PM [...] RN Oral - 07/01/12 1119 - - ARCHITECT documented in this encounter Plan of Treatment Not on filedocumented as of this encounter Procedures Procedure Name Priority Date/Time Associated Diagnosis Comme nts CT ABD PELVIS W IV Routine 07/01/2012 12:47 Abdominal pain, Re sults for this CONT PM ATG ARCHITECT unspecified site procedure a re in the results section. WET PREP STAT 07/01/2012 11:02 Abdominal pain, Results for this AM ATG ARCHITECT unspecified site procedure a re in the results section. US PELVIC COMPLETE W Routine 07/01/2012 10:42 Abdominal pain, Results for this EV AM ATG ARCHITECT unspecified site procedure a re in the results section. COMPLETE BLOOD STAT 07/01/2012 9:16 AM Abdominal pain, Resu lts for this COUNT-W/DIFF ATG ARCHITECT unspecified site procedure a re in the results section. DIFFERENTIAL STAT 07/01/2012 9:16 AM Results f or this ATG ARCHITECT procedure are i n the results section. SEXUALLY TRANSMITTED STAT 07/01/2012 9:06 AM Abdominal pain , Results for this DISEASE PROBE ATG ARCHITECT unspecified site procedure are in the results section. URINE MICROSCOPIC STAT 07/01/2012 9:05 AM Abdominal pain, R esults for this ATG ARCHITECT unspecified site procedure a re in the results section. URINALYSIS STAT 07/01/2012 9:05 AM Abdominal pain, Result s for this ROUTINE(MICRO IF POS) ATG ARCHITECT unspecified site pr ocedure are in the results section. TEST STAT 07/01/2012 9:05 AM Abdominal pain, Resu lts for this (URINE) ATG ARCHITECT unspecified site procedure a re in the results section. documented in this encounter Results CT Abd Pelvis W IV Cont (07/01/2012 12:47 PM ATG ARCHITECT) Anatomical Region Laterality Modality Abdomen, Pelvis Other Specimen (Source) Anatomical Location Collection Method / Collectio n Time Received Time / Laterality Volume Impressions 07/01/2012 1:03 PM ATG ARCHITECT IMPRESSION: No evidence for appendicitis, diverticul itis, or bowel obstruction. ?? No specific abnormality to definitely ex plain the patient's symptomatology. Narrative 07/01/2012 1:03 PM ATG ARCHITECT COMPARISON: ?? None. ?? TECHNIQUE: ??Abdomen and [...] CT (ABNORMAL) WET PREP (07/01/2012 11:02 AM ATG ARCHITECT) [facility] gist Method Time Signature WETPR White Many (A) HP CONVERSION Blood Cells WETPR Moderate HP CONVERSION Epithelial Cells WETPR Yeast Few (A) HP CONVERSION WETPR None Seen HP CONVERSION Trichomonas WETPR Clue Few HP CONVERSION Cells Wet Prep Source Cervix/Vagin HP CONVERSI ON al: Specimen Anatomical Collection Method Collection Time Receive d Time (Source) Location / / Volume Laterality 07/01/2012 11:02 07/01/2012 AM ATG ARCHITECT 11:08 AM ATG ARCHITECT Narrative HP CONVERSION - 07/01/2012 11:08 AM ATG ARCHITECT Performed at [facility], [address] [place] [address] Luann Molina MD LAB_1 Performing Organization Address City/State/ZIP Code Phon e Number HP CONVERSION US Pelvic Complete W EV (07/01/2012 10:42 AM ATG ARCHITECT) Anatomical Region Laterality Modality Pelvis Other Specimen (Source) Anatomical Location Collection Method / Collectio n Time Received Time / Laterality Volume Impressions 07/01/2012 10:52 AM ATG ARCHITECT IMPRESSION: Normal pelvic ultrasound. Narrative 07/01/2012 10:52 AM ATG ARCHITECT COMPARISON: ?None. ? FINDINGS: Transabdominal and endovaginal [...] MD RAD US Differential (07/01/2012 9:16 AM ATG ARCHITECT) athologist Signature Absolute 2.3 1.8 - 8.0 [...] Volume Laterality 07/01/2012 9:16 AM 3 9:16 ATG ARCHITECT AM ATG ARCHITECT Narrative HP CONVERSION - 07/01/2012 9:42 AM ATG ARCHITECT Performed at [facility], [address] [place] [address] Luann Molina MD LAB_1 Performing Organization Address City/State/ZIP Code Phon e Number HP CONVERSION (ABNORMAL) Complete Blood Count W/Diff (07/01/2012 9:16 AM ATG ARCHITECT) [facility] gist Method Time Signature White Blood Cell [...] Volume Laterality 07/01/2012 9:16 AM 3 9:16 ATG ARCHITECT AM ATG ARCHITECT Narrative HP CONVERSION - 07/01/2012 9:42 AM ATG ARCHITECT Performed at [facility], [address] [place] [address] Luann Molina MD LAB_1 Performing Organization Address [facility] Phon e Number HP CONVERSION Sexually Transmitted Disease Probe (07/01/2012 9:06 AM ATG ARCHITECT) Component Value Ref Test Analysis Performed At [facility] gist Range Method Time Signature Chlamydia Chlamydia HP CONVERSION Trach DNA trachomatis NEGATIVE by DNA amplification GC DNA Neisseria HP CONVERSION gonorrhea NEGATIVE by DNA amplification. Specimen (Source) Anatomical Collection Method Collection Time Re ceived Time Location / / Volume Laterality Endocervical for 07/01/2012 9:06 molecular testing: AM ATG ARCHITECT Luann Molina MD LAB_1 Performing Organization Address [facility] Phon e Number HP CONVERSION Test (Urine) (07/01/2012 9:05 AM ATG ARCHITECT) Analysis Performed At Patho logist Time Signature Urine Negative HP CONVERSION Test Specimen Anatomical Collection Method Collection Time Receive d Time (Source) Location / / Volume Laterality 07/01/2012 9:05 AM 3 9:32 ATG ARCHITECT AM ATG ARCHITECT Narrative HP CONVERSION - 07/01/2012 9:38 AM ATG ARCHITECT Performed at [facility], [address] [place] [address] Luann Molina MD LAB_1 Performing Organization Address [facility] Phon e Number HP CONVERSION (ABNORMAL) URINE MICROSCOPIC (07/01/2012 9:05 AM ATG ARCHITECT) Patholo gist Method Time Signature Urine WBC [...] Volume Laterality 07/01/2012 9:05 AM 3 9:32 ATG ARCHITECT AM ATG ARCHITECT Narrative HP CONVERSION - 07/01/2012 9:44 AM ATG ARCHITECT Performed at [facility], [address] [place] [address] Luann Molina MD LAB_1 Performing Organization Address [facility] Phon e Number HP CONVERSION (ABNORMAL) URINALYSIS ROUTINE(MICRO IF POS) (07/01/2012 9:05 AM ATG ARCHITECT) [facility] Method Time Signature Urine Type Urine:clean [...] U Specific 1.020 1.005 - HP CONVERSION [place] 1.030 Urobilinogen Negative Negative HP CONVERSION Urine Eu/dL Specimen Anatomical Collection Method Collection Time Receive d Time (Source) Location / / Volume Laterality Urine: 07/01/2012 9:05 AM 3 9:32 ATG ARCHITECT AM ATG ARCHITECT Narrative HP CONVERSION - 07/01/2012 9:44 AM ATG ARCHITECT Performed at [facility], [address] [place] [address] Luann Molina MD LAB_1 Performing Organization Address [facility] Phon e Number HP CONVERSION documented [...] and tried one pill of new pack. ARCHITECT documented in this encounter
--- OUTSIDE RECORDS SUMMARY | 2021-12-26 08:19 | XMS_ITS | Encounter Summary ---
:1985 Author Organization [employer] Address [address] [place] [address] Care Team Providers Name Role Phone Unavailable Primary Care Provider Unavailable Reason for Visit Reason Comments Refill Encounter Details Date Type Department Care Team Description 07/31/2013 Refill Apolonia Martell MD Refill [address] [place] [address] [place] [address] [phone] (Wo rk) Social History Tobacco Use Types [...] rx faxed for 28 days.Advised to call [phone] to schedule.DS Chanel Herman PA-C - 08/04/2013 [...]
--- OUTSIDE RECORDS SUMMARY | 2021-12-26 08:19 | XMS_ITS | Encounter Summary ---
:1985 Author Organization [facility] Address [address] [place] [address] Care Team Providers Name Role Phone Jeri García MD Primary Care Provider Encounter Details Date Type Department Care Team Description 07/09/2008 PN Conversion Only [address] [address] [place] [address] Social History Tobacco Use Types Packs/Day Years Used Date Smoking Tobacco: Never Alcohol Use Standard Drinks/Week Comments No 0 (1 standard drink = 0.6 oz pure alcoho l) Sex Assigned at Date Recorded Not on file documented as of this encounter Plan of Treatment Not on filedocumented as of this encounter Visit Diagnoses Not on filedocumented in this encounter Care Teams Artist Suspect Relationship Specialty Start Date End Date Jeri García MD PCP - General 08/02/10 09/06/11 [address] [place] [id number] documented as of this encounter
--- OUTSIDE RECORDS SUMMARY | 2021-12-26 08:19 | XMS_ITS | Encounter Summary ---
:1985 Author Organization [employer] Address [address] [place] [address] Care Team Providers Name Role Phone Unavailable Primary Care Provider Unavailable Reason for Visit Reason Comments Annual Exam Encounter Details Date Type Department Care Team Description 09/15/2011 Office Visit [facility] d[facility] M, Well adult exam (Primary Dx) ; [address] PA-C Need for hepatitis B vaccination; [place] [address] [address] [place] Breast lump on left side at 1 o'clock position [phone] [place], [place] [address] (Wo rk) Social History Tobacco Use Types [...] this encounter Patient Instructions Patient InstructionsCorry Murillo, INTERIOR DESIGN FACULTY MEMBER - 09/15/2011 1:34 PM CDT Thank you for enrolling in [facility] [employer]. Please follow the instructions below to securely access your online medical record. [facility] allows you to send messages to your doctor, view your test results, renewyour prescriptions, schedule appointments, and more. How Do I Sign Up? 1. In your Internet browser, go to: [email or web address] 2. Click on the Sign Up Now link in the Sign In box. You will see the New Member Sign Up page. 3. Enter your [facility] [employer] Access Code exactly as it appears below. You will not need to use this code after you???ve completed the sign-up process. If you do not sign up before the expiration date, you must request a new code. [facility] Access Code: [email or web address] Expires: 10/15/11 01:28 PM 4. Enter your Social Security Number (xxx-[id number]) and Date of (mm/dd/yyyy) as indicated and click Submit. You will be taken to the next sign- up page. 5. Create a [facility] ID. This will be your [facility] login ID and cannot be changed, so think of one that is secure and easy to remember. 6. Create a [facility] password. You can change your password at any time. 7. Enter your Password Reset Question and Answer. This can be used at a later time if you forget your password. 8. Enter your e-mail address. You will receive e-mail notification when new information is availablein [facility]. 9. Click Sign Up. You can now view your medical record. Additional Information If you have questions, you can call [phone] to talk to our [facility] staff. Remember, [employer] [facility] [employer] is NOT to be used for urgent needs. For medical emergencies, dial 911. Thank you for enrolling in [employer] [facility] [employer]. Please follow the instructions below to securely access your online medical record. [facility] allows you to send messages to your doctor, view your test results, renewyour prescriptions, schedule appointments, and more. How Do I Sign Up? 10. In your Internet browser, go to: [email or web address] 11. Click on the Sign Up Now link in the Sign In box. You will see the New Member Sign Up page. 12. Enter your [employer] [facility] Access Code exactly as it appears below. You will not need to use this code after you???ve completed the sign-up process. If you do not sign up before the expiration date, you must request a new code. [facility] Access Code: [email or web address] Expires: 10/15/11 01:28 PM 13. Enter your Social Security Number (xxx-[id number]) and Date of (mm/dd/yyyy) as indicated and click Submit. You will be taken to the next sign- up page. 14. Create a [facility] ID. This will be your [facility] login ID and cannot be changed, so think of one that is secure and easy to remember. 15. Create a [facility] password. You can change your password at any time. 16. Enter your Password Reset Question and Answer. This can be used at a later time if you forget your password. 17. Enter your e-mail address. You will receive e-mail notification when new information is available in [facility]. 18. Click Sign Up. You can now view your medical record. Additional Information If you have questions, you can call [phone] to talk to our [facility] staff. Remember, [employer] [facility] [employer] is NOT to be used for urgent [...] hormones. She has never had any pregnancies. [employer] Technical Lead Senior Developer History: : LMP: Patient's last menstrual period [...] Years of Education: N/A Occupational History ??? [employer] Social History Main Topics ??? Smoking status: [...] adenopathy. Pelvic: Normal external genitalia and urethra. [place], moist vaginal and cervical mucosa, without lesions. [...]
--- OUTSIDE RECORDS SUMMARY | 2021-12-26 08:19 | XMS_ITS | Encounter Summary ---
:1985 Author Organization [facility] Address [address] [place] [address] Care Team Providers Name Role Phone Unavailable Primary Care Provider Unavailable Reason for Visit Reason Onset Date Comments LAB RESULTS 07/23/2012 Encounter Details Date Type Department Care Team Description 07/23/2012 Telephone Urgent Care [facility] Kirsten Quiroz INTERIOR PLANT CARETAKER RESULTS [address] [facility] [place] [address] [phone] [place], [place] [address] Social History Tobacco Use [...]
--- OUTSIDE RECORDS SUMMARY | 2021-12-26 08:19 | XMS_ITS | Encounter Summary ---
:1985 Author Organization [employer] Address [address] [place] [address] Care Team Providers Name Role Phone Kristine Mendez MD Primary Care Provider Reason for Referral Specialty Diagnoses / Procedures Referred By Contact [place]er [place] [address] [place] [address] Referral ID Status Reason Start Date Expiration Date Visits Requ ested Visits Authorized Reason for Visit Reason Comments CONSULT Encounter Details Date Type Department Care Team Description 01/02/2014 Initial Consult [facility] [address] istyrese (Primary Dx); Endocrinology JOHN Amato Thyroid mass; [address] [place] or infrequent menstruation; Blvd. Thyroid nodule [place], [place] [id number] Social History Tobacco Use Types Packs/Day Years [...] PM CDT Thank you for enrolling in [employer]. Please follow the instructions below to securely access your online medical record. [employer] allows you to send messages to your doctor, view your test results, renewyour prescriptions, schedule appointments, and more. How Do I Sign Up? 1. In your Internet browser, go to: [email or web address] 2. Click on the Enter Activation Code link under the New User? section. You will see the New Member Sign Up page. 3. Enter your [employer] Activation Code exactly as it appears below. You will not need to use this code after you???ve completed the sign-up process. If you do not sign up before the expiration date, youmust request a new code. [employer] Activation Code: [email or web address] Expires: 02/01/2014 12:59 PM 4. Enter your Date of (mm/dd/yyyy), Home Phone Number and Zip Code as indicated, then click Next. You will be taken to the next sign-up page 5. Create a [employer] ID. This will be your [employer] login ID and cannot be changed, so think of one that is secure and easy to remember. 6. Create a [employer] password. You can change your password at any time. 7. Enter your Security Question and Answer. This can be used at a later time if you forget your password. Click Next. 8. Enter your e-mail address. You will receive e-mail notification when new information is availablein [employer]. 9. Click Sign In. You can now view your medical record. Additional Information If you have questions, you can call [phone] to talk to our [employer] staff. Remember, [employer] is NOT to be used for urgent [...] 01/19/14916 Note Time: 01/02/14 144 Status: Signed Commercial Manager: Leann Magaña MD (Physician) NAME: YAMILET LORA MR#: [id number] CSN: [id number] AUTHENTICATING CLINICIAN: JOHN Eaton CONFIRM #: [id number] LOC: 432 CLINIC CONSULTATION DATE OF CONSULTATION: [...] Currently, she denies the intake of any yjwd-olj-yowqcgf thyroid or iodine products. She denies history [...] No other medical problems. PAST SURGICAL HISTORY: [place] tooth extraction. FAMILY HISTORY: Reviewed and updated in [facility]. SOCIAL HISTORY: Reviewed and updated in [facility]. MEDICATIONS: Reviewed and updated in [facility]. ALLERGIES: Reviewed and updated in [facility]. REVIEW OF SYSTEMS: All the 12 systems [...] on the lower abdomen. LABS: Reviewed in [facility]. Recent TSH was 1.31 on 01/01/2014. PLAN: [...] I am not screening her for subclinical [facility]'s. Total time 60 minutes. More than half of the time was counseling time regarding the thyroid nodule and also the diagnosis of PCOS. SP:MEDQ C: CONFIRM #: [id number] documented in this encounter Plan of Treatment Not on filedocumented as of this encounter Visit Diagnoses Diagnosis Hirsutism - Primary Thyroid mass (HRC) Unspecified disorder of thyroid [place] or infrequent menstruation Thyroid nodule ([facility]) Nontoxic uninodular goiter documented in this encounter Care Teams Blueprint Reproducer Relationship Specialty Start Date End Date Kristine Mendez MD PCP - General 01/01/14 [address] [place] [address] documented as of this encounter
--- OUTSIDE RECORDS SUMMARY | 2021-12-26 08:19 | XMS_ITS | Encounter Summary ---
:1985 Author Organization [facility] Address [address] [place] [address] Care Team Providers Name Role Phone Unavailable Primary Care Provider Unavailable Encounter Details Date Type Department Care Team Description 07/01/2012 Imaging [place] [facility] [address] [place] [address] Social History Tobacco Use Types Packs/Day Years [...]
--- OUTSIDE RECORDS SUMMARY | 2021-12-26 08:20 | XMS_ITS | Encounter Summary ---
:1985 Author Organization [facility] Address [address] [place] [address] Care Team Providers Name Role Phone Megan García MD Primary Care Provider Reason for Visit Reason Comments Other Encounter Details Date Type Department Care Team Description 06/08/2004 Telephone Insticator, Message Other [address] [place] [address] Social History Tobacco Use Types Packs/Day Years Used Date Smoking Tobacco: Never Assessed Sex Assigned at Date Recorded Not on file documented as of this encounter Progress Notes Khushi Gibson - 06/08/2004 11:47 AM CST Phone Note filed by Khushi Gibson RN at 08/15/10 7576 Author: Khushi Gibson RN Service: (none) Author Type: (none) Filed: 08/15/10 4463 Note Time: 06/08/04 1147 Status: Signed Classroom Monitor: Khushi Gibson RN (Registered Nurse) Pt saw [...] try something else. Pharmacy is [phone]. She gets one month at a time. Pt is at [phone] and you can LM. Created on 08Jun2004 [...] filedocumented in this encounter Care Teams Rehabilitation Program Coordinator Relationship Specialty Start Date End Date Megan García MD PCP - General 08/02/10 09/06/[address] [place] [address] documented as of this encounter
--- OUTSIDE RECORDS SUMMARY | 2021-12-26 08:20 | XMS_ITS | Encounter Summary ---
:1985 Author Organization [facility] Address [address] [place] [address] Care Team Providers Name Role Phone Megan García MD Primary Care Provider Encounter Details Date Type Department Care Team Description 07/28/2004 Office Visit Megan Malcolm MD [facility] [address] [facility] [place] [address] [place] [address] [phone] (Wo rk) Social History Tobacco Use Types Packs/Day Years Used Date Smoking Tobacco: Never Assessed Sex Assigned at Date Recorded Not on file documented as of this encounter Last Filed Vital Signs Vital Sign Reading Time Taken Comments Blood Pressure 132/86 07/28/2004 2:17 PM LEGAL CLERK Pulse 80 07/28/2004 2:17 PM LEGAL CLERK Temperature - - Respiratory Rate - - Oxygen Saturation - - Inhaled Oxygen Concentration - - Weight 54.4 kg (119 lb 15.9 oz) 07/28/2004 2:17 PM LEGAL CLERK C: 54.4kg Height - - Body Mass Index - - documented in this encounter Progress Notes Megan García MD - 07/28/2004 12:01 AM CST Progress Notes signed by Megan García MD at 08/01/04 0742 Author: Megan García MD Service: (none) Author Type: Physician Filed: 08/19/10 0510 Note Time: 07/28/04 0001 Status: Signed Director Surgical: Megan García MD (Physician) NAME: YAMILET DAILY MR: [id number] ACCT: [id number] VISIT: [id number] DICTATING CLINICIAN: MEGAN GARCÍA MD JOB: [id number] CLINIC PROGRESS NOTE DATE OF VISIT: 07/28/2004 [...] return here in two to three months. SP:[id number] C: 07/29/04 07:48 DOCUMENT: [id number] documented in this encounter Plan of Treatment Not on filedocumented as of this encounter Visit Diagnoses Not on filedocumented in this encounter Care Teams Oracle Manufacturing Consultant Relationship Specialty Start Date End Date Megan García MD PCP - General 08/02/10 09/06/11 [address] [place] [address] documented as of this encounter
--- OUTSIDE RECORDS SUMMARY | 2021-12-26 08:20 | XMS_ITS | Encounter Summary ---
:1985 Author Organization [facility] Address [address] [place] [address] Care Team Providers Name Role Phone Jrei García MD Primary Care Provider Encounter Details Date Type Department Care Team Description 03/18/2003 PN Conversion Only [place] CONVERSION [address] [place] [address] Social History Tobacco Use Types Packs/Day Years Used Date Smoking Tobacco: Never Assessed Sex Assigned at Date Recorded Not on file documented as of this encounter Plan of Treatment Not on filedocumented as of this encounter Visit Diagnoses Not on filedocumented in this encounter Care Teams Scrap Baller Relationship Specialty Start Date End Date Jeri García MD PCP - General 08/02/10 09/06/[address] [id number] documented as of this encounter
--- OUTSIDE RECORDS SUMMARY | 2021-12-26 08:20 | XMS_ITS | Encounter Summary ---
:1985 Author Organization [facility] Address [address] [place] [address] Care Team Providers Name Role Phone Jeri García MD Primary Care Provider Encounter Details Date Type Department Care Team Description 08/26/2003 PN Conversion Only [facility] Mikala Del Valle, [address] [facility] [place] [address] [phone] [place], [place] [address] (Wo rk) Social History Tobacco Use Types Packs/Day Years Used Date Smoking Tobacco: Never Assessed Sex Assigned at Date Recorded Not on file documented as of this encounter Progress Notes Mikala Del Valle PA-C - 08/26/2003 12:01 AM CDT Progress Notes signed by Mikala Del Valle PA-C at 01/25/04 1637 Author: Mikala Kumari PA-C Service: (none) Author Type: Physician Critical Care Nurse Specialist Filed: 08/18/10 7970 Note Time: 08/26/03 0001 Status: Signed Bevel Operator: Mikala Kumari PA-C (Physician Critical Care Nurse Specialist) NAME: YAMILET DAILY MR: [id number] ACCT: [id number] VISIT: [id number] DICTATING CLINICIAN: ROCIO DRIVER JOB: [id number] CLINIC PROGRESS NOTE DATE OF VISIT: 08/26/2003 [...] chest or back. She has tried various vxtw-dkn-pitvdpt products. Does seem to get irritated with [...] involvement of her chest, back or shoulders. [id number] C: 08/26/03 19:06 DOCUMENT: [id number] documented in this encounter Plan of Treatment Not on filedocumented as of this encounter Visit Diagnoses Not on filedocumented in this encounter Care Teams Solid Waste Disposal Manager Relationship Specialty Start Date End Date Jeri García MD PCP - General 08/02/10 09/06/11 [address] [place], [place] [id number] documented as of this encounter
--- OUTSIDE RECORDS SUMMARY | 2021-12-26 08:20 | XMS_ITS | Encounter Summary ---
:1985 Author Organization [facility] Address [address] [place] [address] Care Team Providers Name Role Phone Megan García MD Primary Care Provider Encounter Details Date Type Department Care Team Description 05/23/2004 Office Visit Megan Malcolm MD [address] [place] [address] [place] [address] [phone] (Wo rk) Social History Tobacco Use Types Packs/Day Years Used Date Smoking Tobacco: Never Assessed Sex Assigned at Date Recorded Not on file documented as of this encounter Progress Notes Megan García MD - 05/23/2004 12:01 AM CST Progress Notes signed by Megan García MD at 05/25/04 1221 Author: Megan García MD Service: (none) Author Type: Physician Filed: 08/19/10 0350 Note Time: 05/23/04 0001 Status: Signed Golf Club Manager: Megan García MD (Physician) NAME: YAMILET DAILY MR: [id number] ACCT: [id number] VISIT: [id number] DICTATING CLINICIAN: MEGAN GARCÍA MD JOB: [id number] CLINIC PROGRESS NOTE DATE OF VISIT: 05/23/2004 SUBJECTIVE: : 1985. REASON FOR VISIT: Acne. Ucouzj-nuz-sivh-old here concerned about a number of things she is noticing. She has tried a number of different preparations, including Retin A, BenzaClin, minocycline, and now, most recently, Azo dora for her acne. Not responding terribly well, especially the last 6-8 months. Has also noticed over that time increased growth in facial hair, especially on her chin and down the sideburn area. A number of female relatives have similar issues, perhaps a bit less than herself. She also notices irregular cycles over the last 3-4 months occurring regularly but prolonged spotting, perhaps two or three weeks at a time. Is currently spotting. Is not sexually active currently or in the past. Reports her weight as stable without working terribly hard to keep it there. 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 CURRENT MEDICATIONS: Azelex. ADR/ALLERGIES: SHE HAS NO DRUG ALLERGIES. OBJECTIVE: VS: BP: 104/58. P: 76. Wt: 117 lb. GENERAL: She appears well. SKIN: Modest hair growth down the sideburn area, shaved on the chin and the periumbilical line. She is otherwise very slender. Mixed acne-type mild inflammatory component. ASSESSMENT: Mild acne, hirsutism, and irregular periods. Labs: A testosterone, DHEA, LH, FSH, TSH, and glucose. With her otherwise normal body habitus, this would suggest against polycystic ovaries, I presume at least the hirsutism is hereditary. She is interested in oral contraceptives, Alesse is given. Will see her back in 2-1/2 months to assess its effect and then prescribe from there. She is aware it does not protect against STD's and she will need a pap when she becomes sexually active. PLAN: See assessment. SP:[id number] C: 05/23/04 15:05 DOCUMENT: [id number] OMER SALES CONSULTANT documented in this encounter Plan of Treatment Not on filedocumented as of this encounter Visit Diagnoses Not on filedocumented in this encounter Care Teams Police Records Clerk Relationship Specialty Start Date End Date Megan García MD PCP - General 08/02/10 09/06/11 [address] [place] [address] documented as of this encounter
--- OUTSIDE RECORDS SUMMARY | 2021-12-26 08:20 | XMS_ITS | Encounter Summary ---
:1985 Author Organization [facility] Address [address] [place] [address] Care Team Providers Name Role Phone Jeri García MD Primary Care Provider Encounter Details Date Type Department Care Team Description 01/08/2003 PN Conversion Only [facility] Jeri Stack, [address] [place] [address] [address] [phone] [place] [address] (Wo rk) Social History Tobacco Use Types Packs/Day Years Used Date Smoking Tobacco: Never Assessed Sex Assigned at Date Recorded Not on file documented as of this encounter Progress Notes Jeri García MD - 01/08/2003 12:01 AM CDT Progress Notes signed by Jeri García MD at 01/12/03 3729 Author: Jeri García MD Service: (none) Author Type: Physician Filed: 08/18/10 3802 Note Time: 01/08/03 0001 Status: Signed Hamper Maker: Jeri García MD (Physician) NAME: YAMILET DAILY MR: [id number] ACCT: [id number] VISIT: [id number] DICTATING CLINICIAN: JERI GARCÍA MD JOB: [id number] CLINIC PROGRESS NOTE DATE OF VISIT: 01/08/2003 SUBJECTIVE: Reason for visit: Abdominal pain. Xvubizcb-wvcf-xuv here one month ago with one weeks [...] mucus. In two weeks she heads to [facility]. ??There is?? a concern about the recurrent [...] seven days until she is leaving for [facility] and we hate to miss something else brewing. An abdominal and pelvic CT is also scheduled. It is okay per the patient that her mom call and get these results. TT: CT: [id number] C: 01/08/03 23:02 DOCUMENT: [id number] Phone Note, Clinician - 01/02/2003 12:01 AM CDT Phone Note signed by AGUILA Zeng at 02/13/04 1635 Author: Clinician Phone Note Service: (none) Author Type: Resource Filed: 01/08/03 0000 Note Time: 01/02/03 0001 Status: Signed Hamper Maker: Clinician Phone Note (Resource) TO: XAVIER DIOR FROM: RHONDA MCGINNIS RN [phone] * PROVIDER MESSAGE: ROUTINE * 01/02/03 10:51AM * *WITHIN 4 HOURS * MESSAGE: Mom calling say her daughter * HOME PHONE:[phone] * is going to [facility] in a few * CONTACT PHONE:[phone] * weeks for 3 months time. She needs * Pt or Mom Leqeen * malaria pills. * PHARMACY: [phone] * SUBJECTIVE: * yumiko [place] * ALLERGIES/SENSITIVITIES... nkda CURRENT MEDICATIONS... none per Mom PERTINENT PAST HISTORY... WEIGHT: PATIENT IS NOT . PATIENT IS NOT NURSING. ASSESSMENT: rx for malaria pills PLAN: DISPOSITION: NO DISPOSITION GIVEN CALL BY RHONDA MCGINNIS RN 01/02/2003 10:48AM [phone] ADDENDUM: <> 01/02/2003 01:51PM by NADEEN BASS: Per Radha Gomez RN DANCER OR CHOREOGRAPHER, Lariam 250mg as directed. #19 with no refill called to Arleen at [phone]. Recommend calling the Travel clinic to check on immunizations needed or visit www.cdc.gov. Mother notified. NERATOR PLANT LABORER Phone Note, Clinician - 12/15/2002 12:01 AM CDT Phone Note filed by Clinician Phone Note at 08/16/10 4611 Author: Clinician Phone Note Service: (none) Author Type: Resource Filed: 08/16/10 1155 Note Time: 12/15/02 0001 Status: Signed Hamper Maker: Clinician Phone Note (Resource) TO: XAVIER DIOR FROM: JAY MEDINA [id number] * PROVIDER MESSAGE: ROUTINE * 12/15/02 08:55AM * *WITHIN 4 HOURS * MESSAGE: Patient's mom calling in * HOME PHONE:[phone] * today to see if the UA results from * CONTACT PHONE:[phone] * her appointment on 12/11/02 with * [...] GIVEN CALL BY JAY MEDINA 12/15/2002 08:52AM [id number] ADDENDUM: <> 12/15/2002 01:20PM by RADHA ROSEN: [...] BRAVO LPN: Notified of normal culture results. NERATOR PLANT LABORER Xavier Braun PA-C - 12/11/2002 12:01 AM CDT Progress Notes signed by Xavier Braun PA-C at 12/23/02 1421 Author: Xavier Braun PA-C Service: (none) Author Type: Physician Pit Manager Filed: 08/18/10 1627 Note Time: 12/11/02 0001 Status: Signed Hamper Maker: Xavier Braun PA-C (Physician Pit Manager) NAME: YAMILET DAILY MR: [id number] ACCT: [id number] VISIT: [id number] DICTATING CLINICIAN: ROCIO COSME JOB: [id number] CLINIC PROGRESS NOTE DATE OF VISIT: 12/11/2002 [...] 1. UTI. 2. Heart palpitation. TT: CT: [id number] C: 12/11/02 15:18 DOCUMENT: [id number] Radha Ogden - 09/10/2002 12:01 AM CDT Progress Notes signed by AGUILA Zeng at 01/22/04 1312 Author: AGUILA Zeng Service: (none) Author Type: Nurse Practitioner Filed: 08/18/10 1355 Note Time: 09/10/02 0001 Status: Signed Hamper Maker: AGUILA Zeng (Nurse Practitioner) NAME: YAMILET DAILY MR: [id number] ACCT: [id number] VISIT: [id number] DICTATING CLINICIAN: RADHA GOMEZ NP JOB: [id number] CLINIC PROGRESS NOTE DATE OF VISIT: 09/10/2002 [...] area and back of the head. Using oabv-aar-xydgzoq Tylenol Sinus yesterday and aspirin for one dose with some good relief of the headache, but not really as much for the pressure. She does have a previous history of sinus infections. No history of allergies. Nonsmoker. MEDICATIONS: None. ADR/ALLERGIES: NKDA. NO LATEX ALLERGY. She is a student at [employer]. One sister sick at home with similar [...] with sinusitis, suspect viral etiology. TT: CT: [id number] C: 09/11/02 16:08 DOCUMENT: [id number] NERATOR PLANT LABORER Xavier Braun PA-C - 07/09/2002 12:01 AM CST Progress Notes signed by Xavier Braun PA-C at 07/16/02 1126 Author: Xavier Braun PA-C Service: (none) Author Type: Physician Pit Manager Filed: 08/18/10 1357 Note Time: 07/09/022053 Status: Signed Hamper Maker: Xavier Braun PA-C (Physician Pit Manager) NAME: YAMILET DAILY MR: [id number] ACCT: [id number] VISIT: [id number] DICTATING CLINICIAN: ROCIO COSME JOB: [id number] CLINIC PROGRESS NOTE DATE OF VISIT: 07/09/2002 SUBJECTIVE: : 1985. Chart Number: [id number]. This 17-year-old presents today with one week [...] to flight as she is leaving for [place] tomorrow. Lots of fluids, warm compresses to the sinus areas, steamy baths and showers to help with drainage. Return to clinic as needed for continued or worsening symptoms. FINAL IMPRESSION: Acute sinusitis. TT: CT: [id number] C: 07/10/02 20:33 DOCUMENT: [id number] Nghia Salas - 09/20/2001 12:01 AM CDT Progress Notes signed by at 06/21/02 0001 Author: Nghia Stringer MD Service: (none) Author Type: Physician Filed: 08/18/10 0713 Note Time: 09/20/012053 Status: Signed Hamper Maker: Nghia Stringer MD (Physician) IMPRESSION: Acute sinusitis. [...] time if symptoms not resolved. TT: CT: KOURTNEY:[id number] C: DOCUMENT: [id number] NERATOR PLANT LABORER Conversion, [facility] - 06/17/2001 12:01 AM CST Progress Notes signed by at 06/21/022053 Author: Imr Conversion Service: (none) Author Type: (none) Filed: 08/18/10 0457 Note Time: 06/17/012053 Status: Signed Hamper Maker: Shelley Conversion IMPRESSION: Postviral cough versus bronchitis. [...] to take. Follow up p.r.n. TT: CT: TIFFANIET:[id number] C: DOCUMENT: [id number] SCHEDULED RESOURCE: ALEKS BREEN / ROCIO NERATOR PLANT LABORER Conversion, [facility] - 11/06/2000 12:01 AM CDT Phone Note signed by at 11/06/00 3307 Author: [facility] Conversion Service: (none) Author Type: (none) Filed: 08/18/10 0007 Note Time: 11/06/002053 Status: Signed Hamper Maker: Shelley Conversion IMPRESSION: Need order for shot TO: MARY MENDOZA FROM: CJ YEPEZ RN [phone] * PROVIDER MESSAGE: RETURN * 11/06/00 12:48PM * CALL REQUESTED * MESSAGE: Genesis (mom) calling. * HOME PHONE:[phone] * Yamilet will be going to [place] at * CONTACT PHONE:[phone] * the end of the month and [...] CALL BY CJ YEPEZ RN 11/06/2000 12:45PM [phone] ADDENDUM: <> 11/06/2000 03:04PM by RADHA PIRES LPN: may have Hepatitis A as injection only per Dr Mendoza. mom does not want child to receive the Hep B at this time. Jeri Meza MD - 06/30/1999 12:01 AM CST Progress Notes signed by Jeri García MD at 07/04/99 0809 Author: Jeri Gracía MD Service: (none) Author Type: Physician Filed: 08/17/10 1553 Note Time: 06/30/99 0001 Status: Signed Hamper Maker: Jeri García MD (Physician) IMPRESSION: Sinusitis. 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 She [...] tab po bid for 14 days given. :[id number] C: DOCUMENT: [id number] NERATOR PLANT LABORER Nghia Stringer - 04/20/1999 12:01 AM CST Progress Notes signed by Nghia Stringer MD at 04/21/99 1733 Author: Nghia Stringer MD Service: (none) Author Type: Physician Filed: 08/17/10 1445 Note Time: 04/20/99 0001 Status: Signed Hamper Maker: Nghia Stringer MD (Physician) IMPRESSION: Acute sinusitis. [...] 10 days' time if symptoms not resolved. [facility]:[id number] C: DOCUMENT: [id number] NERATOR PLANT LABORER Fernando [facility] - 02/26/1997 12:01 AM CST Phone Note signed by at 02/26/97 0804 Author: Shelley King Service: (none) Author Type: (none) Filed: 08/17/10 0149 Note Time: 02/26/97 0001 Status: Signed Hamper Maker: Shelley King IMPRESSION: Sore Throat-(Child)-Nurse Guidelines - TREATING PROVIDER: YAKELIN CARUSO - Appointment made with YAKELIN Garcia HOME PHONE: [phone] * SHADY Feb 26 1997 10:20AM SUBJECTIVE: [...] concerns Call taken by BRODIE GARRETT, RN [phone] 02/26/1997 07:55 AM ADDENDUM: NERATOR PLANT LABORER Yakelin Caruso MD - 02/26/1997 12:01 AM CST Progress Notes signed by Yakelin Caruso MD at 03/04/97 1513 Author: Yakelin Caruso MD Service: (none) Author Type: Physician Filed: 08/17/10 0149 Note Time: 02/26/97 0001 Status: Signed Hamper Maker: Yakelin Caruso MD (Physician) IMPRESSION: Pharyngitis. SUBJECTIVE: [...] the throat culture results are back. [id number] NERATOR PLANT LABORER Tobias Adorno MD - 12/03/1996 12:01 AM CDT Progress Notes signed by Tobias Adorno MD at 03/15/97 1624 Author: Tobias Adorno MD Service: (none) Author Type: Physician Filed: 08/17/10 0038 Note Time: 12/03/96 0001 Status: Signed Hamper Maker: Tobias Adorno MD (Physician) IMPRESSION: (1) Probable [...] for any suspicious changes. PLAN: N/A. lap NERATOR PLANT LABORER Conversion, [facility] - 07/10/1996 12:01 AM CST Phone Note signed by at 07/10/96 1047 Author: Imr Conversion Service: (none) Author Type: (none) Filed: 08/16/10 5868 Note Time: 07/10/96 0001 Status: Signed Hamper Maker: Shelley King IMPRESSION: Nail Abnormality TO: MARY MENDOZA FROM: JACKELYN OSBORN RN [phone] * PROVIDER MESSAGE: ROUTINE * 07/10/96 10:40AM * *WITHIN 4 HOURS * MESSAGE: Please call if there is * HOME PHONE:[phone] * something she could do for this at * CONTACT PHONE:[phone] * home. * mom-Genesis * SUBJECTIVE: * [...] the nail has grown out. Occasionally wears kazakh and false nails. No crumbling, yellow, or thickened nails. ALLERGIES/SENSITIVITIES... NKDA 07/10/96 CURRENT MEDICATIONS... none 07/10/96 PERTINENT PAST HISTORY... healthy 07/10/96 WEIGHT: PATIENT IS NOT . PATIENT IS NOT NURSING. ASSESSMENT: Nail Abnormality PLAN: DISPOSITION: NO DISPOSITION GIVEN CALL BY JACKELYN OSBORN RN 07/10/1996 10:36AM [phone] ADDENDUM: Jennifer Wolf APRN, CNP - 01/17/1996 12:01 AM CDT Progress Notes signed by Jennifer Beasley APRN, CNP at 01/22/96 8018 Author: LALI Ag Service: (none) Author Type: Nurse Practitioner Filed: 08/16/102053 Note Time: 01/17/96 0001 Status: Signed Hamper Maker: LALI Ag (Nurse Practitioner) IMPRESSION: Healthy almost 11-year-old. SUBJECTIVE: Yamilet is an almost 11-year-old in for routine care. She has been healthy, well and really comes in only for her shots. She is home schooled, and Mom described her as an excellent student. She has friends in the neighborhood and some other family friends through sabianist. She enjoys biking, rollerblading and walks frequently. [...] 15 years for her next check. nbs Electronically signed by Jennifer Beasley, GRAIN ELEVATOR AGENT, DANCER OR CHOREOGRAPHER at 01/22/1996 1:27 PM CDT Mary Mendoza MD - 10/09/1994 12:01 AM CDT Progress Notes signed by Mary Mendoza MD at 10/12/94 6200 Author: Mary Mendoza MD Service: (none) Author Type: Physician Filed: 08/16/10 8595 Note Time: 10/09/94 0001 Status: Signed Hamper Maker: Mary Mendoza MD (Physician) IMPRESSION: Rash behind [...] 1:18 PM Resul ts for this LATERAL INCINERATOR PLANT LABORER procedure are i n the results section. documented in this encounter Results XR Chest PA With Lateral (06/17/2001 1:18 PM INCINERATOR PLANT LABORER) Anatomical Region Laterality Modality Other Specimen (Source) Anatomical Location Collection Method / Collectio n Time Received Time / Laterality Volume Impressions 06/17/2001 1:18 PM INCINERATOR PLANT LABORER : ?NORMAL CHEST. FINDINGS: ?CH1 ?THE CARDIOVASCULAR STRUCTURES APPE AR NORMAL. ?NO EVIDENCE OF ACTIVE PULMONARY DI SEASE. TECH-ID : ? VV TRANS-ID: Narrative 06/17/2001 1:18 PM INCINERATOR PLANT LABORER CLINICAL DATA: ?COUGH Procedure Note Jesse Escobar - 07/06/2016 CLINICAL DATA: COUGH IMPRESSION : NORMAL CHEST. FINDINGS: CH1 THE CARDIOVASCULAR STRUCTURES APPEAR NO RMAL. NO EVIDENCE OF ACTIVE PULMONARY DISEASE . TECH-ID : VV TRANS-ID: Aleks Breen PARene RAD GD documented in this encounter Visit Diagnoses Not on filedocumented in this encounter Care Teams Stay Cutter Relationship Specialty Start Date End Date Jeri García MD PCP - General 08/02/10 09/06/11 [address] [place] [address] documented as of this encounter
--- OUTSIDE RECORDS SUMMARY | 2021-12-26 08:20 | XMS_ITS | Encounter Summary ---
:1985 Author Organization [facility] Address [address] [place] [address] Care Team Providers Name Role Phone Jeri García MD Primary Care Provider Encounter Details Date Type Department Care Team Description 10/28/2003 Office Visit [place] [facility] Mikala Del Valle PA-C [address] [facility] [address] [place] [address] [place] [address] [phone] (Wo rk) Social History Tobacco Use Types Packs/Day Years Used Date Smoking Tobacco: Never Assessed Sex Assigned at Date Recorded Not on file documented as of this encounter Progress Notes Mikala Del Valle PA-C - 10/28/2003 12:01 AM CDT Progress Notes signed by Mikala Del Valle PA-C at 01/25/04 9582 Author: Mikala Kumari PA-C Service: (none) Author Type: Physician Client Executive Filed: 08/19/10 0010 Note Time: 10/28/03 0001 Status: Signed Pharmacy Services Representative: Mikala Kumari PA-C (Physician Client Executive) NAME: YAMILET DAILY MR: [id number] ACCT: [id number] VISIT: [id number] DICTATING CLINICIAN: ROCIO DRIVER JOB: [id number] CLINIC PROGRESS NOTE DATE OF VISIT: 10/28/2003 [...] counseling on how to treat the acne. TLW:[id number] C: 10/28/03 16:10 DOCUMENT: [id number] documented in this encounter Plan of Treatment Not on filedocumented as of this encounter Visit Diagnoses Not on filedocumented in this encounter Care Teams Mammalogist Relationship Specialty Start Date End Date Jeri García MD PCP - General 08/02/10 09/06/11 [address] [place] [address] documented as of this encounter
--- OUTSIDE RECORDS SUMMARY | 2021-12-26 08:20 | XMS_ITS | Encounter Summary ---
:1985 Author Organization [facility] Address [address] [place] [address] Care Team Providers Name Role Phone Jeri García MD Primary Care Provider Encounter Details Date Type Department Care Team Description 05/23/2004 PN Conversion Only OZZIE CONVERSION Jeri García, [address] [place] [address] [address] [place], [place] [id number] (Wo rk) Social History Tobacco Use Types Packs/Day Years Used Date Smoking Tobacco: Never Assessed Sex Assigned at Date Recorded Not on file documented as of this encounter Plan of Treatment Not on filedocumented as of this encounter Procedures Procedure Name Priority Date/Time Associated Comments Diagnosis DEHYDROEPIANDROSTERONE Routine 05/23/2004 11:37 R esults for AM CURBSTONE SETTER this procedure are in the results section. TESTOSTERONE TOTAL ADULT Routine 05/23/2004 11:37 Results for MALES AM CURBSTONE SETTER this procedure are in the results section. GLUCOSE Routine 05/23/2004 11:37 Results for AM CURBSTONE SETTER this procedure are in the results section. THYROID STIMULATING HORMONE Routine 05/23/2004 11:37 Results for AM CURBSTONE SETTER this procedure are in the results section. LH Routine 05/23/2004 11:37 Results for AM CURBSTONE SETTER this procedure are in the results section. FSH Routine 05/23/2004 11:37 Results for AM CURBSTONE SETTER this procedure are in the results section. documented in this encounter Results Glucose (05/23/2004 11:37 AM CURBSTONE SETTER) P athologist Signature Lab Glucose 89 60 - 100 HP CONVERSION mg/dL Specimen (Source) Anatomical Collection Method Collection Time Re ceived Time Location / / Volume Laterality 05/23/2004 11:37 AM CURBSTONE SETTER Jeri García MD LAB_1 Performing Organization Address City/State/ZIP Code Phon e Number HP CONVERSION Testosterone, Total Adult Males (05/23/2004 11:37 AM CURBSTONE SETTER) Analysis Performed At Patho logist Time Signature Testosterone 62 10 - 75 HP CONVERSION Level ng/dL Specimen (Source) Anatomical Collection Method Collection Time Re ceived Time Location / / Volume Laterality 05/23/2004 11:37 AM CURBSTONE SETTER Jeri García MD LAB_1 Performing Organization Address City/[facility]/ZIP Code Phon e Number HP CONVERSION Thyroid Stimulating Hormone (05/23/2004 11:37 AM CURBSTONE SETTER) athologist Signature Thyroid 1.48 0.20 - HP CONVERSION Stimulating 5.50 Hormone uIU/mL Specimen (Source) Anatomical Collection Method Collection Time Re ceived Time Location / / Volume Laterality 05/23/2004 11:37 AM CURBSTONE SETTER Jeri García MD LAB_1 Performing Organization Address City/[facility]/ZIP Code Phon e Number HP CONVERSION Dehydroepiandrosterone (05/23/2004 11:37 AM CURBSTONE SETTER) Patholo gist Method Time Signature Dehydroepiandrosterone 5.4 1.9 - 7.6 HP CONV ERSION ng/mL Specimen (Source) Anatomical Collection Method Collection Time Re ceived Time Location / / Volume Laterality 05/23/2004 11:37 AM CURBSTONE SETTER Jeri García MD LAB_1 Performing Organization Address City/[facility]/ZIP Code Phon e Number HP CONVERSION LH (05/23/2004 11:37 AM CURBSTONE SETTER) P athologist Signature Lh 25 mIU/mL HP CONVERSION Comment: ?LH Value (mIU/mL) Female: ? Range Normally Ovulating Females -Follicular Phase ? 2-13 -Mid-Cycle Peak ? 9- -Luteal Phase ? 0.5-17 Postmenopausal Females ? 5-52 Specimen (Source) Anatomical Collection Method Collection Time Re ceived Time Location / / Volume Laterality 05/23/2004 11:37 AM CURBSTONE SETTER Jeri García MD LAB_1 Performing Organization Address City/State/ZIP Code Phon e Number HP CONVERSION FSH (05/23/2004 11:37 AM CURBSTONE SETTER) P athologist Signature Follicle 5.1 mIU/mL HP CONVERSION Stimulating Hormone Comment: ? FSH Value(mIU/mL) Normally Menstruating Females ?Range -Follicular Phase ?3.6 - 16.0 -Mid-Cycle Peak ?3.4 - 33.0 -Luteal Phase ?1.5 - 9.1 Postmenopausal Females ?22.9 - 167 Specimen (Source) Anatomical Collection Method Collection Time Re ceived Time Location / / Volume Laterality 05/23/2004 11:37 AM CURBSTONE SETTER Jeri García MD LAB_1 Performing Organization Address City/State/ZIP Code Phon e Number HP CONVERSION documented in this encounter Visit Diagnoses Not on filedocumented in this encounter Care Teams Transit Manager Relationship Specialty Start Date End Date Jeri García MD PCP - General 08/02/10 09/06/11 [address] [place], [place] [address] documented as of this encounter
--- OUTSIDE RECORDS SUMMARY | 2021-12-26 08:21 | XMS_ITS | Encounter Summary ---
:1985 Author Organization [facility] Address [address] [place] [address] Care Team Providers Name Role Phone Jeri García MD Primary Care Provider Encounter Details Date Type Department Care Team Description 12/11/2002 PN Conversion Only OZZIE CONVERSION Mariano Braun PAScottieC [address] [place] [address] [place] [address] (Wo rk) Social History Tobacco Use Types [...] - HP CONVERSION Hemoglobin Conc 36.5 gm/dL [place] RDW 12.3 11.0 - HP CONVERSION 15.0 % Platelet Count 207 140 - 450 HP CONVERSION k/cmm Specimen (Source) Anatomical Collection Method Collection Time Re ceived Time Location / / Volume Laterality 12/11/2002 12:10 PM CDT Mariano Braun PA-C LAB_1 Performing Organization Address City/[facility] Code Phon e Number HP CONVERSION (ABNORMAL) Urinalysis Complete (12/11/2002 12:10 PM CDT) Patholo gist Method Time Signature Glucose, Negative Neg-Trac HP CONVERSION Qualitative U Protein Urine Negative Neg-Trac HP CONVERSION Ketones Negative Negative HP CONVERSION U BILI Negative Negative HP CONVERSION U Specific 1.010 1.005 - 25 HP CONVERSION [place] Blood Urine Small (A) Negative HP CONVERSION [...] Mariano Braun PA-C LAB_1 Performing Organization Address [facility] Phon e Number HP CONVERSION Electrolytes (NA, [...] Lugo Aparna SAVAGE LAB_1 Performing Organization Address City/[facility] Phon e Number HP CONVERSION Thyroid Stimulating Hormone (12/11/2002 12:10 PM CDT) athologist Signature Thyroid 0.95 0.20 - HP CONVERSION Stimulating 5.50 Hormone uIU/mL Specimen (Source) Anatomical Collection Method Collection Time Re ceived Time Location / / Volume Laterality 12/11/2002 12:10 PM CDT Mariano Lugo Aparna CHAN-Joesph LAB_1 Performing Organization Address [facility] Code Phon e Number HP CONVERSION Hgb A1c (12/11/2002 12:10 PM CDT) athologist Signature HGB A1C 4.8 <6.0 % HP CONVERSION Specimen (Source) Anatomical Collection Method Collection Time Re ceived Time Location / / Volume Laterality 12/11/2002 12:10 PM CDT Mariano Lugo Aparna CHAN-Joesph LAB_1 Performing Organization Address [facility] Code Phon e Number HP CONVERSION documented in this encounter Visit Diagnoses Not on filedocumented in this encounter Care Teams Locomotive Lubricating Systems Clerk Relationship Specialty Start Date End Date Jeri García MD PCP - General 08/02/10 09/06/11 [address] [place] [address] documented as of this encounter
--- OUTSIDE RECORDS SUMMARY | 2021-12-26 08:21 | XMS_ITS | Encounter Summary ---
:1985 Author Organization [facility] Address [address] [place] [address] Care Team Providers Name Role Phone Jeri García MD Primary Care Provider Encounter Details Date Type Department Care Team Description 12/11/2002 PN Conversion Only OZZIE CONVERSION Radha Landin, LOGISTICS ACCOUNT MANAGER, [address] [place] [address] [address] [address] (Wo rk) Social History Tobacco Use [...] Patient: YAMILET DAILY Culture, Urine @ ?Collected: ??[id number] ??[id number] Source: Clean Ca ?Processed: ??[id number] ??1356 ? DO SENSI Final Report ------ ?[id number] ??1022 No growth @ = URINE CULTURE Performed at ??[address] [place], [place] ?[address] Specimen (Source) Anatomical Collection Method Collection Time Re ceived Time Location / / Volume Laterality 12/11/2002 1:56 PM CDT Radha Landin LOGISTICS ACCOUNT MANAGER, MEDICAL SURGERY NURSE LAB_1 Performing Organization Address City/State/ZIP Code Phon e Number HP CONVERSION documented in this encounter Visit Diagnoses Not on filedocumented in this encounter Care Teams Electrical Superintendent Relationship Specialty Start Date End Date Jeri García MD PCP - General 08/02/10 09/06/11 [address] [place] [address] documented as of this encounter
--- OUTSIDE RECORDS SUMMARY | 2021-12-26 08:21 | XMS_ITS | Encounter Summary ---
:1985 Author Organization [employer] Address [address] [place] [address] Care Team Providers Name Role Phone Jeri García MD Primary Care Provider Encounter Details Date Type Department Care Team Description 01/08/2003 PN Conversion Only OZZIE CONVERSION Jeri García, [address] [place] [address] [address] [place] [address] (Wo rk) Social History Tobacco Use [...] Patient: YAMILET DAILY Culture, Urine @ ?Collected: ??[id number] ??[id number] Source: Clean Ca ?Processed: ??[id number] ??1412 ? G SENS Final Report ------ ?[id number] ??1332 No growth @ = URINE CULTURE Performed at ??[address] [place], [place] ?[address] Specimen (Source) Anatomical Collection Method Collection Time Re ceived Time Location / / Volume Laterality 01/08/2003 2:12 PM CDT Jeri García MD LAB_1 Performing Organization Address City/State/ZIP Code Phon e Number HP CONVERSION (ABNORMAL) Urinalysis Complete (01/08/2003 1:59 PM CDT) [facility] gist Method Time Signature Glucose, Negative Neg-Trac HP CONVERSION Qualitative U Protein Urine Negative Neg-Trac HP CONVERSION Ketones Negative Negative HP CONVERSION U BILI Negative Negative HP CONVERSION U Specific <=1.005 1.005 - 25 HP CONVERSION [place] Blood Urine Moderate Negative HP CONVERSION (A) [...] on filedocumented in this encounter Care Teams Disc Inspector Relationship Specialty Start Date End Date Jeri García MD PCP - General 08/02/10 09/06/11 [address] [place], [place] [id number] documented as of this encounter
--- OUTSIDE RECORDS SUMMARY | 2021-12-26 08:21 | XMS_ITS | Encounter Summary ---
:1985 Author Organization [facility] Address [address] [place] [address] Care Team Providers Name Role Phone Jeri García MD Primary Care Provider Encounter Details Date Type Department Care Team Description 01/08/2003 PN Conversion Only AMY CONVERSION [address] [place] [address] Social History Tobacco Use Types Packs/Day Years [...] 1231 Note Time: 03/09/03 0001 Status: Signed Mobile Pet Groomer: Clinician Phone Note (Resource) TO: JERI GARCÍA FROM: JUAN PALMA RN [phone] * PROVIDER MESSAGE: ROUTINE * 03/09/03 01:36PM * *WITHIN 4 HOURS * MESSAGE: Mom calling. Pt. is studying * HOME PHONE:[phone] * in [facility], will be there another * CONTACT PHONE:[phone] * 6 wks . Her IBS has been under good * Genesis * control with Bentyl, there were no * PHARMACY: [phone] * refills from 01/14 phone note order. [...] CALL BY JUAN PALMA RN 03/09/2003 01:34PM [phone] ADDENDUM: <> 03/09/2003 02:25PM by RHONDA HYMAN HEPATOLOGY PHYSICIAN: Per Dr. García rx. for Bentyl 10mgs sig 1 tab po qid prn #100 with 1 refill called to pharmacy. ING MACHINE TENDER Phone Note, Clinician - 01/16/2003 12:01 AM CDT Phone Note filed by Clinician Phone Note at 08/16/10 5775 Author: Clinician Phone Note Service: (none) Author Type: Resource Filed: 08/16/10 1208 Note Time: 01/16/03 0001 Status: Signed Mobile Pet Groomer: Clinician Phone Note (Resource) TO: JERI GARCÍA FROM: ROYA GILES [phone] * PROVIDER MESSAGE: ROUTINE * 01/16/03 10:02AM * *WITHIN 4 HOURS * MESSAGE: Yamilet is calling * HOME PHONE:[phone] * requesting her ultra sound results * CONTACT PHONE:[phone] * she had that done on [place]. Please call her at [phone] SUBJECTIVE: ALLERGIES/SENSITIVITIES... nkda 01/12/03 not verified 01/16/03 CURRENT MEDICATIONS... Cipro 01/12/03 not verified 01/16/03 PERTINENT PAST HISTORY... n01/12/03 not verified 01/16/03 WEIGHT: OMITTED ASKING ABOUT . OMITTED ASKING ABOUT NURSING. ASSESSMENT: PLAN: DISPOSITION: NO DISPOSITION GIVEN CALL BY ROYA GILES 01/16/2003 10:01AM [id number] ADDENDUM: <> 01/16/2003 01:36PM by JERI CORTES HEPATOLOGY PHYSICIAN: Alex Quintana, normal kidney U/S. Msg lft at contact # with this info. ING MACHINE TENDER Phone Note, Clinician - 01/14/2003 12:01 AM CDT Phone Note filed by Clinician Phone Note at 08/16/10 1201 Author: Clinician Phone Note Service: (none) Author Type: Resource Filed: 08/16/10 1204 Note Time: 01/14/03 0001 Status: Signed Mobile Pet Groomer: Clinician Phone Note (Resource) TO: JERI GARCÍA FROM: ROYA GILES [id number] * PROVIDER MESSAGE: ROUTINE * 01/14/03 08:13AM * *WITHIN 4 HOURS * MESSAGE: Yamilet is still having * HOME PHONE:[phone] * pain even with the medication that * CONTACT PHONE:[phone] * she was given , her mom is wondering if there is anything else she can be taking. Please call her at [phone] SUBJECTIVE: ALLERGIES/SENSITIVITIES... nkda 01/12/03 not verified 01/14/03 CURRENT MEDICATIONS... Cipro 01/12/03 not verified 01/14/03 PERTINENT PAST HISTORY... n01/12/03 not verified 01/14/03 WEIGHT: OMITTED ASKING ABOUT . OMITTED ASKING ABOUT NURSING. ASSESSMENT: PLAN: DISPOSITION: NO DISPOSITION GIVEN CALL BY ROYA GILES 01/14/2003 08:11AM [id number] ADDENDUM: <> 01/14/2003 02:02PM by RHONDA HYMAN HEPATOLOGY PHYSICIAN: Per Dr. García rx for Bentyl 10mgs [...] call as soon as results are in. Gneesis, mom, is at home, cell if not home. Yamilet did get on phone and she gives verbal permission for results to be given to Mom. ING MACHINE TENDER Phone Note, Clinician - 01/12/2003 12:01 AM CDT Phone Note filed by Clinician Phone Note at 08/16/10 1206 Author: Clinician Phone Note Service: (none) Author Type: Resource Filed: 08/16/10 1206 Note Time: 01/12/03 0001 Status: Signed Mobile Pet Groomer: Clinician Phone Note (Resource) TO: JERI GARCÍA FROM: JUAN PALMA RN [phone] * PROVIDER MESSAGE: ROUTINE * 01/12/03 11:10AM * *WITHIN 4 HOURS * MESSAGE: Pt. was seen 01/08. She was * HOME PHONE:[phone] * started on Cipro for UTI. Pain is * CONTACT PHONE:[phone] * improving but c/o stomach ache. Is * PHARMACY: [phone] * taking abx. with food. Would like * Amy WM * CT results from 01/09. SUBJECTIVE: ALLERGIES/SENSITIVITIES... nkda 01/12/03 CURRENT MEDICATIONS... Cipro 01/12/03 PERTINENT PAST HISTORY... 01/12/03 WEIGHT: OMITTED ASKING ABOUT . OMITTED ASKING ABOUT NURSING. ASSESSMENT: CT results PLAN: DISPOSITION: NO DISPOSITION GIVEN CALL BY JUAN PALMA RN 01/12/2003 11:09AM [phone] ADDENDUM: <> 01/12/2003 01:37PM by STAN CHAVEZ: Ok per Dr. García to schedule pt. for a R Kidney US for area of decreased perfusion seen on R lower pole of CT. Scheduled and notified. ING MACHINE TENDER documented in this encounter Plan of Treatment [...] normal appearing kidneys. ? ?See above discussion. [id number]/[facility] Dictating BRITTANY MONTEIRO RADIOLOGIST Narrative 01/15/2003 7:55 [...] normal appearing kidneys. S ee above discussion. [id number]/[facility] Dictating BRITTANY MONTEIRO RADIOLOGIST Jeri García MD [...] amount of free fluid within the pelvis. [id number] Dictating AZEEM RITCHIE RADIOLOGIST Procedure Note Azeem [...] amount of free fluid within the pelvis. [id number]/[id number] Dictating AZEEM RITCHIE RADIOLOGIST Jeri García MD [...] ultrasound may be useful in further evaluation. [place] rlr [id number] Dictating AZEEM RITCHIE RADIOLOGIST Procedure Note Azeem [...] ultrasound may be useful in further evaluation. [place] rlr [id number] Dictating AZEEM RITCHIE RADIOLOGIST Jeri García MD RAD CT documented in this encounter Visit Diagnoses Not on filedocumented in this encounter Care Teams Art Coordinator Relationship Specialty Start Date End Date Jeri García MD PCP - General 08/02/10 09/06/11 [address] [place] [address] documented as of this encounter
== END 2021-12-26 08:16 | disposition home or self-care (01) ==
LOC: OP CLINIC 08:16
PROVIDERS: Visit Provider Surgery
DX: Z12.11 Encounter for screening for malignant neoplasm of colon (principal); K63.5 Polyp of colon; K62.1 Rectal polyp; Z86.010 Personal history of colon polyps; Z80.0 Family history of malignant neoplasm of digestive organs
CPT/HCPCS: 45385; 88305; 99153; J2250; J3010

== ENCOUNTER 2022-01-05 07:54 | Outpatient (CLI) | payer OTHER, SELFPAY ==
--- OUTSIDE RECORDS SUMMARY | 2022-01-05 07:58 | XMS_ITS | Encounter Summary ---
:1985 Author Organization [facility] [employer] Address [address] [place] [address] Care Team Providers Name Role Phone Kristine Mendez MD Primary Care Provider Reason for Visit Reason Comments Pharyngitis x 1 week Encounter Details Date Type Department Care Team Description 04/17/2017 Office Visit Amy Berger e Radha Alejandra, Acute pharyngitis, unspecifi ed etiology (Primary Dx); [address] PA-C Sore throat [place] [phone] [facility] [phone] [place], [place] [id number] Social History Tobacco Use Types Packs/Day Years [...] Comments Blood Pressure 145/83 04/17/2017 8:54 AM FISHING TACKLE REPAIRER Pulse 83 04/17/2017 8:54 AM FISHING TACKLE REPAIRER Temperature 36.7 ??C (98 ??F) 04/17/2017 8:54 AM FISHING TACKLE REPAIRER Respiratory Rate - - Oxygen Saturation 100% 04/17/2017 8:54 AM FISHING TACKLE REPAIRER Inhaled Oxygen Concentration - - Weight 63.7 kg (140 lb 8 oz) 04/17/2017 8:54 AM FISHING TACKLE REPAIRER Height - - Body Mass Index 20.3 [...] cup of warm water. ?? Take an qadu-kjt-lcysnnc pain medicine, such as acetaminophen (Tylenol), ibuprofen (Advil, Motrin), or naproxen (Aleve). Read and follow all instructions on the label. ?? Be careful when taking psxy-gzq-gvioaom cold or flu medicines and Tylenol at [...] may help decrease throat pain. ?? Use tmqf-mvm-cbezytu throat lozenges to soothe pain. Regular cough [...] can you learn more? 1. Go to [employer]/EXO5 or [employer]ZO[employer]nis. 2. Enter U420 in the search box. Current as of: November 26, 2015 Content Version: 11.3 ?? [id number] [employer], [employer]. Thank you so much for choosing [facility]. It was a pleasure taking care of you today! Important phone numbers: Daytime Clinic information: [phone] Appointment center: [phone] Evenings & Weekends CareLine: [phone] Urgent Care Hotline: [phone] [facility], Emergency Department [address] [place] [address] ING TACKLE REPAIRER documented in this encounter Progress Notes Radha [...] with salt water Pt was seen at [facility] on 04/12 and had a negative [...] orders and patient instructions Radha Alejandra PA-C ING TACKLE REPAIRER documented in this encounter Plan of Treatment Not on filedocumented as of this encounter Procedures Procedure Name Priority Date/Time Associated Diagnosis Comme nts STREP GRP A, RAPID Waiting 04/17/2017 8:56 AM Sore throat Res ults for this SCREEN FISHING TACKLE REPAIRER procedure are i n the results section. documented in this encounter Results Strep Grp A, Rapid Screen Perform a culture if negative screen? No (04/17/2017 8:56 AM FISHING TACKLE REPAIRER) [facility] gist Method Time Signature Grp A Rapid Negative NEG [facility] Specimen Anatomical Collection Method Collection Time Receive d Time (Source) Location / / Volume Laterality 04/17/2017 8:56 AM 7 9:03 FISHING TACKLE REPAIRER AM FISHING TACKLE REPAIRER Narrative [facility] - 04/17/2017 9:[address] Performed at [facility] [place], [address], [place] [address] Radha Alejandra PA-C LAB_1 Performing Organization Address City/State/ZIP Code Phon e Number [facility] [phone] documented in this encounter Visit Diagnoses Diagnosis Acute pharyngitis, unspecified etiology - Primary Sore throat Acute pharyngitis documented in this encounter Care Teams Wedger And Gluer Relationship Specialty Start Date End Date Kristine Mendez MD PCP - General 01/01/14 [address] [address] [place] [address] documented as of this encounter
--- OUTSIDE RECORDS SUMMARY | 2022-01-05 07:58 | XMS_ITS | Encounter Summary ---
:1985 Author Organization [facility] Address [address] [place] [address] Care Team Providers Name Role Phone Kristine Mendez MD Primary Care Provider Reason for Visit Procedure/Equipment (Routine) - Canceled Specialty Diagnoses / Procedures Referred By Contact Refer red To Contact Diagnoses Left breast mass Madeleine Page, MOLDING PROCESS TECHNICIAN, TREASURY ACCOUNTANT [place] [address] [place] [address] Referral ID Status Reason Start Date Expiration Date Visits V isits Requested Authorized [id number] Canceled 05/28/2019 08/26/2020 1 1 Encounter Details Date Type Department Care Team Description 06/03/2019 Ancillary Procedure [facility] [address] Madeleine Page , Left breast mass Mammography MOLDING PROCESS TECHNICIAN, TREASURY ACCOUNTANT [address] [facility] [address] [place] [address] [phone] Social History Tobacco Use Types Packs/Day Years [...] breast documented in this encounter Care Teams Certified Dialysis Technician Relationship Specialty Start Date End Date Kristine Mendez MD PCP - General 01/01/[address] [place] [address] documented as of this encounter
--- OUTSIDE RECORDS SUMMARY | 2022-01-05 07:58 | XMS_ITS | Encounter Summary ---
:1985 Author Organization [facility] Address [address] [place] [address] Care Team Providers Name Role Phone Kristine Mendez MD Primary Care Provider Reason for Referral Specialty Diagnoses / Procedures Referred By Contact [place]er [place] [address] [place] [address] Referral ID Status Reason Start Date Expiration Date Visits Requ ested Visits Authorized Reason for Visit Reason Comments CONSULT Encounter Details Date Type Department Care Team Description 01/02/2014 Initial Consult [facility] [address] istyrese (Primary Dx); Endocrinology JOHN Amato Thyroid mass; [address] [place] or infrequent menstruation; Blvd. Thyroid nodule [place], [place] [id number] Social History Tobacco Use Types Packs/Day Years [...] PM CDT Thank you for enrolling in [employer]. Please follow the instructions below to securely access your online medical record. [employer] allows you to send messages to your doctor, view your test results, renewyour prescriptions, schedule appointments, and more. How Do I Sign Up? 1. In your Internet browser, go to: [email or web address] 2. Click on the Enter Activation Code link under the New User? section. You will see the New Member Sign Up page. 3. Enter your [employer] Activation Code exactly as it appears below. You will not need to use this code after you???ve completed the sign-up process. If you do not sign up before the expiration date, youmust request a new code. [employer] Activation Code: [email or web address] Expires: 02/01/2014 12:59 PM 4. Enter your Date of (mm/dd/yyyy), Home Phone Number and Zip Code as indicated, then click Next. You will be taken to the next sign-up page 5. Create a [employer] ID. This will be your [employer] login ID and cannot be changed, so think of one that is secure and easy to remember. 6. Create a [employer] password. You can change your password at any time. 7. Enter your Security Question and Answer. This can be used at a later time if you forget your password. Click Next. 8. Enter your e-mail address. You will receive e-mail notification when new information is availablein [employer]. 9. Click Sign In. You can now view your medical record. Additional Information If you have questions, you can call [phone] to talk to our [employer] staff. Remember, [employer] is NOT to be used for urgent [...] 01/19/14916 Note Time: 01/02/14 144 Status: Signed Land Examiner: Leann Magaña MD (Physician) NAME: YAMILET LORA MR#: [id number] CSN: [id number] AUTHENTICATING CLINICIAN: JOHN Eaton CONFIRM #: [id number] LOC: 432 CLINIC CONSULTATION DATE OF CONSULTATION: [...] Currently, she denies the intake of any fuay-ksl-ineakju thyroid or iodine products. She denies history [...] No other medical problems. PAST SURGICAL HISTORY: [place] tooth extraction. FAMILY HISTORY: Reviewed and updated in [facility]. SOCIAL HISTORY: Reviewed and updated in [facility]. MEDICATIONS: Reviewed and updated in [facility]. ALLERGIES: Reviewed and updated in [facility]. REVIEW OF SYSTEMS: All the 12 [...] on the lower abdomen. LABS: Reviewed in [facility]. Recent TSH was 1.31 on 01/01/2014. [...] I am not screening her for subclinical [place]'s. Total time 60 minutes. More than half of the time was counseling time regarding the thyroid nodule and also the diagnosis of PCOS. SP:MEDQ C: CONFIRM #: [id number] documented in this encounter Plan of Treatment Not on filedocumented as of this encounter Visit Diagnoses Diagnosis Hirsutism - Primary Thyroid mass (HRC) Unspecified disorder of thyroid Scanty or infrequent menstruation Thyroid nodule (HRC) Nontoxic uninodular goiter documented in this encounter Care Teams Self Pay Specialist Relationship Specialty Start Date End Date Kristine Mendez MD PCP - General 01/01/14 [address] [place] [address] documented as of this encounter
--- OUTSIDE RECORDS SUMMARY | 2022-01-05 07:58 | XMS_ITS | Encounter Summary ---
:1985 Author Organization [facility] Address [address] [place] [address] Care Team Providers Name Role Phone Kristine Mendez MD Primary Care Provider Reason for Visit Procedure/Equipment (Routine) - Incomplete Specialty Diagnoses / Procedures Referred By Contact Refer red To Contact Diagnoses Left breast mass Madeleine Page, CARPENTER APPRENTICE, RADIO AERIAL INSTALLER Procedures YMM Mammogram Diag Bilat W 3D Aurelia MM Mammogram Diag Bilat [address] [place] [address] Referral ID Status Reason Start Date Expiration Date Visits V isits Requested Authorized [id number] Incomplete 05/23/2019 08/21/2020 1 1 Encounter Details Date Type Department Care Team Description 05/28/2019 Ancillary Procedure [facility] [address] Madeleine Page , Left breast mass Mammography CARPENTER APPRENTICE, RADIO AERIAL INSTALLER 3850 [facility] [address] [place] [address] [phone] Social History Tobacco Use Types Packs/Day Years [...] an ultrasound-guided biopsy 06-03-2019. Sent message to YuyutoDONNELL ET RAILWAY LINE INSTALLER documented in this encounter Plan of Treatment Not on filedocumented as of this encounter Procedures Procedure Name Priority Date/Time Associated Diagnosis Comme nts [facility] MAMMOGRAM DIAG Routine 05/28/2019 2:16 PM Left breast mass Results for this BILAT W [address] RAILWAY LINE INSTALLER procedure ar e in the results section. documented in this encounter Results (ABNORMAL) [facility] US Breast Lt (05/28/2019 3:[address] RAILWAY LINE INSTALLER) Anatomical Region Laterality Modality Breast Left Ultrasound Specimen (Source) Anatomical Collection Method Collection Time Re ceived Time Location / / Volume Laterality 05/28/2019 2:[address] RAILWAY LINE INSTALLER Impressions 05/28/2019 3:[address] RAILWAY LINE INSTALLER HISTORY: Left breast mass 12:00 p.m., 2 [...] is indeterminate. Ultrasound-guided biopsy is recommended. The [facility] will attempt to schedule the recommended [...] is indeterminate. Ultrasound-guided biopsy is recommended. The [facility] will attempt to schedule the recommended follow up with the patient. IMPRESSION: ACR BI-RADS CATEGORY 4: Susp icious. Madeleine Page CARPENTER APPRENTICE, RADIO AERIAL INSTALLER RAD ERIC (ABNORMAL) YMM Mammogram Diag Bilat W 3D Aurelia (05/28/2019 2:[address] RAILWAY LINE INSTALLER) Anatomical Region Laterality Modality Breast Bilateral Mammography Specimen (Source) Anatomical Collection Method Collection Time Re ceived Time Location / / Volume Laterality 05/28/2019 2:[address] RAILWAY LINE INSTALLER Impressions 05/28/2019 3:[address] RAILWAY LINE INSTALLER HISTORY: Left breast mass 12:00 p.m., 2 [...] is indeterminate. Ultrasound-guided biopsy is recommended. The [facility] will attempt to schedule the recommended [...] is indeterminate. Ultrasound-guided biopsy is recommended. The [facility] will attempt to schedule the recommended follow up with the patient. IMPRESSION: ACR BI-RADS CATEGORY 4: Susp icious. Madeleine Page CARPENTER APPRENTICE, RADIO AERIAL INSTALLER RAD ERIC documented in this encounter Visit Diagnoses Diagnosis Left breast mass Lump or mass in breast Left breast mass Lump or mass in breast documented in this encounter Care Teams Knuckler Relationship Specialty Start Date End Date Kristine Mendez MD PCP - General 01/01/14 [address] [place] [address] documented as of this encounter
--- OUTSIDE RECORDS SUMMARY | 2022-01-05 07:58 | XMS_ITS | Encounter Summary ---
:1985 Author Organization [facility] Address [address] [place] [address] Care Team Providers Name Role Phone Kristine Mendez MD Primary Care Provider Reason for Visit Procedure/Equipment (Routine) - Incomplete Specialty Diagnoses / Procedures Referred By Contact Refer red To Contact Diagnoses Left breast mass Madeleine Page, SECURITY INSPECTOR, GILL TENDER Procedures [facility] [place] [address] [place] [address] Referral ID Status Reason Start Date Expiration Date Visits V isits Requested Authorized [id number] Incomplete 05/23/2019 08/21/2020 1 1 Encounter Details Date Type Department Care Team Description 05/28/2019 Ancillary Procedure [facility] [address] , Left breast mass Mammography SECURITY INSPECTOR, GILL TENDER 3850 [facility] [address] [place] [address] [phone] Social History Tobacco Use Types Packs/Day Years [...] Name Priority Date/Time Associated Diagnosis Comme nts [facility] US BREAST LT Routine 05/28/2019 3:07 PM Left breast mass R esults for this VICE PRESIDENT [employer] procedure are i n the results section. documented in this encounter Results (ABNORMAL) [facility] US Breast Lt (05/28/2019 3:07 PM VICE PRESIDENT [employer]) Anatomical Region Laterality Modality Breast Left Ultrasound Specimen (Source) Anatomical Collection Method Collection Time Re ceived Time Location / / Volume Laterality 05/28/2019 2:58 PM [facility] [employer] [employer] Impressions 05/28/2019 3:44 PM [facility] [employer] HISTORY: Left breast mass 12:00 p.m., 2 [...] is indeterminate. Ultrasound-guided biopsy is recommended. The [facility] will attempt to schedule the [...] indeterminate. Ultrasound-guided biopsy is recommended. The [facility] will attempt to schedule the recommended follow up with the patient. IMPRESSION: ACR BI-RADS CATEGORY 4: Susp icious. Madeleine Page SECURITY INSPECTOR, GILL TENDER RAD ERIC (ABNORMAL) [facility] Mammogram Diag Bilat W 3D Brodie (05/28/2019 2:16 PM [employer]) Anatomical Region Laterality Modality Breast Bilateral Mammography Specimen (Source) Anatomical Collection Method Collection Time Re ceived Time Location / / Volume Laterality 05/28/2019 2:15 PM [facility] [employer] [employer] Impressions 05/28/2019 3:44 PM [facility] [employer] [employer] HISTORY: Left breast mass 12:00 p.m., 2 [...] is indeterminate. Ultrasound-guided biopsy is recommended. The [facility] will attempt to schedule the [...] is indeterminate. Ultrasound-guided biopsy is recommended. The [facility] will attempt to schedule the recommended follow up with the patient. IMPRESSION: ACR BI-RADS CATEGORY 4: Susp icious. Madeleine Page SECURITY INSPECTOR, GILL TENDER RAD ERIC documented in this encounter Visit Diagnoses Diagnosis Left breast mass Lump or mass in breast Left breast mass Lump or mass in breast documented in this encounter Care Teams Photoengraving Printer Relationship Specialty Start Date End Date Kristine Mendez MD PCP - General 01/01/14 [address] [place] [place] [address] documented as of this encounter
--- OUTSIDE RECORDS SUMMARY | 2022-01-05 07:58 | XMS_ITS | Encounter Summary ---
:1985 Author Organization [facility] Address [address] [place] [address] Care Team Providers Name Role Phone Kristine Mendez MD Primary Care Provider Reason for Visit Reason Comments RESULTS, TEST Encounter Details Date Type Department Care Team Description 01/28/[address] [facility] [address] Mag[address] cca, MD RESULTS, TEST Endocrinology [address] [place] [address] [place] [address] [phone] Social History Tobacco Use Types Packs/Day Years [...] on filedocumented in this encounter Care Teams Ore Puncher Relationship Specialty Start Date End Date Kristine Mendez MD PCP - General 01/01/14 [address] [place] [address] [address] documented as of this encounter
--- OUTSIDE RECORDS SUMMARY | 2022-01-05 07:58 | XMS_ITS | Clinical Summary ---
:1985 Author Organization [facility] Address [address] [place] [address] Care Team Providers Name Role Phone Kristine [...] for each transition of care or referral. [facility] Allergies No known active allergies Medications No [...] Comments Blood Pressure 127/82 05/23/2019 10:30 AM MOTORCYCLE DESIGNER Pulse 103 05/23/2019 10:30 AM MOTORCYCLE DESIGNER Temperature 36.9 ??C (98.4 ??F) 05/23/2019 10:30 AM MOTORCYCLE DESIGNER Respiratory Rate 16 02/10/2019 2:45 PM CDT Oxygen Saturation 100% 02/10/2019 2:45 PM CDT Inhaled Oxygen Concentration - - Weight 63.5 kg (140 lb) 05/23/2019 10:30 AM MOTORCYCLE DESIGNER Height 177.8 cm (5' 10) 02/10/2019 1:19 [...] Phone Addre ss Type Group [employer]IG[employer] CIGNA [id number] 2013-Present [phone] [address] [place] [address] [phone] [facility] (Home) W [phone] Eduar [place]ER (Work) [address] [address], Personal/Family Self 1985 [address] [facility] (Home) [address] [phone] Eduar TURNER (Work) [address] Guido, Personal/Family Self [phone] [facility] (Home) [place] [address] Care Teams Family Dentist Relationship Specialty Start Date End Date Kristine Mendez MD PCP - General 01/01/14 [address] [place] [address]
--- OUTSIDE RECORDS SUMMARY | 2022-01-05 07:58 | XMS_ITS | Encounter Summary ---
:1985 Author Organization [facility] Address [address] [place] [address] Care Team Providers Name Role Phone Kristine Mendez MD Primary Care Provider Reason for Referral Procedure/Equipment (Routine) - Incomplete Specialty Diagnoses / Procedures Referred By Contact Refer red To Contact Diagnoses Left breast mass Madeleine Page APRN, NETWORK DESIGNER Procedures Y[facility] [place] [address] [place] [address] Referral ID Status Reason Start Date Expiration Date Visits V isits Requested Authorized [id number] Incomplete 05/23/2019 08/21/2020 1 1 NK PIT SUPERVISOR Procedure/Equipment (Routine) - Incomplete Specialty Diagnoses / Procedures Referred By Contact Refer red To Contact Diagnoses Left breast mass Madeleine Page APRN, NETWORK DESIGNER Procedures YMM Mammogram Diag Bilat W 3D Brodie MM Mammogram Diag Bilat [address] [place] [address] Referral ID Status Reason Start Date Expiration Date Visits V isits Requested Authorized [id number] Incomplete 05/23/2019 08/21/2020 1 1 NK PIT SUPERVISOR Reason for Visit Reason Comments BREAST LUMP Left Encounter Details Date Type Department Care Team Description 05/23/2019 Office Visit [facility] Madeleine Page, Left breast mass (Primary Dx); Services-GROUNDSKEEPING MAINTENANCE WORKER ASAD, NAWAF Irregular menses [address], [address] [facility] [address] [place] [address] [phone] Social History Tobacco Use Types Packs/Day Years [...] Comments Blood Pressure 127/82 05/23/2019 10:30 AM SHRINK PIT SUPERVISOR Pulse 103 05/23/2019 10:30 AM SHRINK PIT SUPERVISOR Temperature 36.9 ??C (98.4 ??F) 05/23/2019 10:30 AM SHRINK PIT SUPERVISOR Respiratory Rate - - Oxygen Saturation - - Inhaled Oxygen Concentration - - Weight 63.5 kg (140 lb) 05/23/2019 10:30 AM SHRINK PIT SUPERVISOR Height - - Body Mass Index 20.09 [...] The pain is not severe and no niwp-ufb-[id number] medications used. This is a new symptom. [...] ??? Irritable bowel syndrome ??? Thyroid nodule [facility] 02/23/2014 PSH: Past Surgical History: Procedure Laterality Date ??? WISDOM TEETH EXTRACTION Social Hx: Social History Socioeconomic History ??? Marital status: Single Spouse name: Not on file ??? Number of children: Not on file ??? Years of education: Not on file ??? Highest education level: Not on file Occupational History ??? 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 OBJECTIVE:Patient was offered a telecom field technician for visit and declined. BP 127/82 (BP [...] will be addressed at apt by the [facility] radiologist and team. Irregular menses. Advised patient to schedule an infertility consult. She has been trying for 1 yearto conceive with PCOS symptoms and AMA. Dictation disclaimer: Some notes are completed with voice-recognition dictation software. Typographical errors may result. Please contact me via [employer] staff message if you note any errors requiring clarification. NK PIT SUPERVISOR documented in this encounter Plan of Treatment Not on filedocumented as of this encounter Results (ABNORMAL) [facility] US Breast Lt (05/28/2019 3:07 PM SHRINK PIT SUPERVISOR) Anatomical Region Laterality Modality Breast Left Ultrasound Specimen (Source) Anatomical Collection Method Collection Time Re ceived Time Location / / Volume Laterality 05/28/2019 2:58 PM SHRINK PIT SUPERVISOR Impressions 05/28/2019 3:44 PM SHRINK PIT SUPERVISOR HISTORY: Left breast mass 12:00 p.m., 2 [...] is indeterminate. Ultrasound-guided biopsy is recommended. The [facility] will attempt to schedule the [...] BI-RADS CATEGORY 4: Susp icious. Madeleine Page SALVAGE GRINDER, NETWORK DESIGNER RAD ERIC (ABNORMAL) YMM Mammogram Diag Bilat W 3D Brodie (05/28/2019 2:16 PM SHRINK PIT SUPERVISOR) Anatomical Region Laterality Modality Breast Bilateral Mammography Specimen (Source) Anatomical Collection Method Collection Time Re ceived Time Location / / Volume Laterality 05/28/2019 2:15 PM SHRINK PIT SUPERVISOR Impressions 05/28/2019 3:44 PM SHRINK PIT SUPERVISOR HISTORY: Left breast mass 12:00 p.m., 2 [...] is indeterminate. Ultrasound-guided biopsy is recommended. The [facility] will attempt to schedule the [...] BI-RADS CATEGORY 4: Susp icious. Madeleine Page SALVAGE GRINDER, NETWORK DESIGNER RAD ERIC documented in this encounter Visit Diagnoses Diagnosis Left breast mass - Primary Lump or mass in breast Irregular menses Irregular menstrual cycle Left breast mass Lump or mass in breast Left breast mass Lump or mass in breast documented in this encounter Care Teams Recreation Supervisor Relationship Specialty Start Date End Date Kristine Mendez MD PCP - General 01/01/14 [address] [place] [address] documented as of this encounter
--- OUTSIDE RECORDS SUMMARY | 2022-01-05 07:58 | XMS_ITS | Encounter Summary ---
:1985 Author Organization [facility] Address [address] [place] [address] Care Team Providers Name Role Phone Kristine Mendez MD Primary Care Provider Encounter Details Date Type Department Care Team Description 01/02/[address] [facility] 38[address] Thyroid m ass; Laboratory Hirsutism; [facility] Scanty or infrequent menstru ation; [place] [address] Thyroid nodule [phone] Social History Tobacco Use Types Packs/Day Years [...] - 01/02/2014 2:31 PM CDT Performed at [facility], [address] [place] [address] Lima Carterjuan jose [facility]_1 Performing Organization Address City/[facility]/ZIP Code Phon e Number HP CONVERSION TESTOSTERONE FREE TOTAL FEMALES AND CHILDREN (01/02/2014 1:52 PM CDT) Analysis Performed At [facility] Time Signature Testosterone 36 9 - 55 HP CONVERSION Female or ng/dL Children Comment: Total Testosterone, Females 18 years and older Premenopausal ??9-55 ng/dL Postmenopausal 5-32 ng/dL REFERENCE INTERVAL: Testosterone, LC-MS/ MS Access complete set of age- and/or gende r-specific reference intervals for this test in the [facility] Directory ([place]). Test developed and characteristics deter mined by [employer] See Compliance Statement B : [place]/CS Testosterone Free Female and Child 3.6 0.8 [...] reference intervals for this test in the [facility] Test Directory ([place]). Sex Hormone Binding Globulin 72 30 - 135 nmol/L HP CONVERSION Comment: REFERENCE INTERVAL: Sex Hormone Binding Globulin Access complete set of age- and/or gende r-specific reference intervals for this test in the [facility] Test Directory ([place]). Specimen Anatomical Collection Method Collection Time Receive d Time (Source) Location / / Volume Laterality 01/02/2014 1:52 PM 4 4:10 CDT PM CDT Narrative HP CONVERSION - 01/05/2014 4:30 AM CDT Performed at [facility] [employer] [address] [place] [address] Lima Garzagian [facility]_1 Performing Organization Address City/[facility] Code Phon e Number HP [...] - 01/06/2014 5:45 PM CDT Performed at [facility] [address] [place] [address] Lima Garzagian [facility]_1 Performing Organization Address [facility] Phon e Number HP CONVERSION ANDROSTENEDIONE (01/02/2014 1:52 PM CDT) athologist Signature Androstenedione 1.250 0.260 - HP CONVERSION 2.140 ng/mL Comment: INTERPRETIVE INFORMATION: Androstenedion e, Females 18 years and older Post-menopausal: 0.13-0.82 ng/mL REFERENCE INTERVAL: Androstenedione by T MS Access complete set of age- and/or gende r-specific reference intervals for this test in the [facility] Test Directory ([place]). Test developed and characteristics deter mined by [employer] See Compliance Statement B : [place]/CS Specimen Anatomical Collection Method Collection Time Receive d Time (Source) Location / / Volume Laterality 01/02/2014 1:52 PM 4 5:01 CDT PM CDT Narrative HP CONVERSION - 01/04/2014 6:34 PM CDT Performed at [facility] [address] [place] [address] Jayashreeivan Kadi [facility]_1 Performing Organization Address [facility] Phon e Number HP CONVERSION DEHYDROEPIANDROSTERONE SULFATE PEDS (01/02/2014 1:52 PM CDT) Component Value Ref Test Analysis Performed At [facility] Range Method Time Signature Dehydroepiandrosterone 172 45 - 270 HP CONV ERSION Sulfate ug/dL Comment: REFERENCE INTERVAL: DHEAS Access complete set of age- and/or gende r-specific reference intervals for this test in the [facility] Test Directory ([place]). Specimen Anatomical Collection Method Collection Time Receive d Time (Source) Location / / Volume Laterality 01/02/2014 1:52 PM 4 5:01 CDT PM CDT Narrative HP CONVERSION - 01/04/2014 9:05 AM CDT Performed at [facility] [address] [place] [address] Lima Garzagian [facility]_1 Performing Organization Address City/State/ZIP Code Phon e Number HP CONVERSION documented in this encounter Visit Diagnoses Diagnosis Thyroid mass (HRC) Unspecified disorder of thyroid Hirsutism Scanty or infrequent menstruation Thyroid nodule (HRC) Nontoxic uninodular goiter documented in this encounter Care Teams Chief Information Security Officer Relationship Specialty Start Date End Date Kristine Mendez MD PCP - General 01/01/14 [address] [place] [address] documented as of this encounter
--- OUTSIDE RECORDS SUMMARY | 2022-01-05 07:58 | XMS_ITS | Encounter Summary ---
:1985 Author Organization [employer] Address [address] [place] [address] Care Team Providers Name Role Phone Kristine Mendez MD Primary Care Provider Reason for Visit Reason Comments PELVIC PAIN Encounter Details Date Type Department Care Team Description 02/23/2014 Office Visit [facility] Kristine Mendez, UTI (urinary tract infection) (Primary Dx); Medicine Pelvic pain in female [address] [address] [place] [address] [place] [phone] (Wo rk) Social History Tobacco Use Types [...] Years of Education: N/A Occupational History ??? [employer] Social History Main Topics ??? Smoking status: Never Smoker ??? Smokeless tobacco: Not on file ??? Alcohol Use: No Comment: rare ??? Drug Use: No ??? Sexual Activity: Partners: Male Control/ Protection: Other Topics Concern ??? Exercise Yes ??? Seat Belt Yes ??? Special Diet No ??? 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: BP 130/82 Pulse 76 Temp(Src) 36.8 [...] on 3 day from online clinic - [facility] NSAW MECHANIC Miscellaneous - 06/08/2016 2:42 PM CSTNotes Recorded by Kristine Mendez MD on 02/23/2014 at 3:24 PMPt on cipro BID to complete 7 day course for incomplete tx of sx on 3 day from [facility] NSAW MECHANIC documented in this encounter Plan of [...] Results Urine Culture (02/23/2014 2:51 PM CDT) [facility] Method Time Signature Source Urine HP CONVERSION Site HP CONVERSION Urine Culture No growth HP CONVERSION Specimen (Source) Anatomical Collection Method Collection Time Re ceived Time Location / / Volume Laterality Urine: 02/23/2014 2:51 PM CDT Kristine Mendez MD LAB_1 Performing Organization Address [facility] Code Phon e Number [...] - 02/23/2014 3:19 PM CDT Performed at [facility], [address] [place] [address] Transcriptions 06/08/2016 2:42 PM CSTNotes Recorded by Kristine Mendez MD on 02/23/2014 at 3:24 PMPt on cipro BID to complete 7 day course for incomplete tx of sx on 3 day from online clinic - await rKistine Mendez MD LAB_1 Performing Organization Address [facility] Phon e Number HP CONVERSION (ABNORMAL) URINALYSIS ROUTINE, MICRO/CULTURE IF POS (02/23/2014 2:51 PM CDT) [facility] Method Time Signature Urine Type Urine:clean [...] U Specific >=1.030 1.005 - HP CONVERSION Tatum 1.030 Urobilinogen Negative Negative HP CONVERSION Urine Specimen (Source) Anatomical Collection Method Collection Time Re ceived Time Location / / Volume Laterality Urine: 02/23/2014 2:51 PM CDT Narrative HP CONVERSION - 02/23/2014 2:59 PM CDT Performed at [facility], [address] [facility], [place] [address] Transcriptions 06/08/2016 2:42 PM CSTNotes Recorded by [...] organs documented in this encounter Care Teams Panama Hat Smearer Relationship Specialty Start Date End Date Kristine Mendez MD PCP - General 01/01/14 [address] [place] [place] [address] documented as of this encounter
--- OUTSIDE RECORDS SUMMARY | 2022-01-05 07:58 | XMS_ITS | Encounter Summary ---
:1985 Author Organization [employer] Address [address] [place] [address] Care Team Providers Name Role Phone Kristine Mendez MD Primary Care Provider Reason for Visit Reason Comments Follow-up Encounter Details Date Type Department Care Team Description 03/02/2014 Office Visit [facility] Apolonia Cm, Pelvic pa in in female (Primary Dx); Medicine Screening for malignant neoplasm of the cervix [email or web address] [place] [address] [place] [address] [phone] Social History Tobacco Use Types Packs/Day Years Used Date Smoking Tobacco: Never Alcohol Use Standard Drinks/Week Comments No 0 (1 standard drink = 0.6 oz pure alcoho l) Sex Assigned at Date Recorded Not on file documented as of this encounter Last Filed Vital Signs Vital Sign Reading Time Taken Comments Blood Pressure 124/80 03/02/2014 3:55 PM [employer] Pulse 88 03/02/2014 3:55 PM [employer] Temperature - - Respiratory Rate - - Oxygen Saturation - - Inhaled Oxygen Concentration - - Weight 59 kg (130 lb) 03/02/2014 3:55 PM [employer] Height - - Body Mass Index 18.79 [...] up - TBD based on lab results EN [employer] SELECTOR documented in this encounter Plan of Treatment Not on filedocumented as of this encounter Procedures Procedure Name Priority Date/Time Associated Comments Diagnosis VAGINOSA DNA PROBE Routine 03/02/2014 4:20 PM Pelvic pain in R esults for this [employer] female procedure are i n the results section. HPV WITH 16 18 Routine 03/02/2014 4:20 PM Results for this GENOTYPING, [employer] procedure are i n CERVICAL/ENDOCERVICAL the re sults section. ANATOMICAL PATH Routine 03/02/2014 4:20 PM Result s for this LIQUID BASED [employer] procedure are i n the results section. PAP SMEAR ORDER Routine 03/02/2014 4:20 PM Screening for Resul ts for this [employer] malignant neoplasm procedure are in of the cervix the results section. SEXUALLY TRANSMITTED Routine 03/02/2014 4:20 PM Pelvic pain in Results for this DISEASE PROBE [employer] female procedure are in the results section. documented in this encounter Results VAGINOSA DNA PROBE (03/02/2014 4:20 PM [employer]) [facility] Method Time Signature Source Vaginal HP CONVERSION Site HP CONVERSION Vaginosis DNA No Melody HP CONVERSION Probe present Vaginosis DNA No Gardnerella HP CONVERSI ON Probe present Vaginosis DNA No Trichomonas HP CONVERSI ON Probe present Specimen (Source) Anatomical Collection Method Collection Time Re ceived Time Location / / Volume Laterality Vaginal: 03/02/2014 4:20 PM [employer]OR Apolonia Cm MD LAB_1 Performing Organization Address City/State/ZIP Code Phon e Number HP CONVERSION SEXUALLY TRANSMITTED DISEASE PROBE (03/02/2014 4:20 PM [employer]) Component Value Ref Test Analysis Performed At [facility] Method Time Signature Source Endocervical for HP CONVERSION molecular testing Site HP CONVERSION Chlamydia Chlamydia HP CONVERSION Trach DNA trachomatis NEGATIVE by DNA amplification GC DNA Neisseria HP CONVERSION gonorrhea NEGATIVE by DNA amplification. Specimen (Source) Anatomical Collection Method Collection Time Re ceived Time Location / / Volume Laterality Endocervical for 03/02/2014 4:20 molecular testing: PM [employer] Apolonia Cm MD LAB_1 Performing Organization Address City/State/ZIP Code Phon e Number HP CONVERSION Pap Smear (03/02/2014 4:20 PM [employer]) Specimen (Source) Anatomical Collection Method Collection Time Re ceived Time Location / / Volume Laterality 03/02/2014 4:20 PM [employer] Narrative HP CONVERSION - 03/18/2014 7:07 PM [employer]OR FINAL GYNECOLOGICAL CYTOLOGY REPORT Pathology #: [id number] ?Date Obtained: 03/02/2014 ? Date Received: 03/04/2014 [...] with 16 18 Genotyping (03/02/2014 4:20 PM [employer] SELECTOR) [facility] Method Time Signature HPV High Risk [...] and its pe rformance characteristics determined by [facility]. It has not been cleared or approved by [facility]. The laboratory is regulated under CLIA as qualified to perform high-complexity testing. This test is used for clinical purposes. It should not be regarded as investigational or fo r research. Specimen Anatomical Collection Method Collection Time Receive d Time (Source) Location / / Volume Laterality 03/02/2014 4:20 PM 4 4:20 [employer]OR PM [employer] Apolonia Cm MD LAB_1 Performing Organization Address City/State/ZIP Code Phon e Number HP CONVERSION Pap Smear Order (03/02/2014 4:20 PM [employer] SELECTOR) [facility] gist Method Time Signature Pap Smear Collected HP CONVERSION Monolayer tracking test Specimen Anatomical Collection Method Collection Time Receive d Time (Source) Location / / Volume Laterality 03/02/2014 4:20 PM 4 4:59 [employer]EN [employer] SELECTOR AM [employer]EN FOOD SELECTOR Apolonia Cm MD LAB_1 Performing Organization Address City/State/ZIP Code Phon e Number HP CONVERSION documented in this encounter Visit Diagnoses Diagnosis Pelvic pain in female - Primary Unspecified symptom associated with fema le genital organs Screening for malignant neoplasm of the cervix documented in this encounter Care Teams Blender / Cook Relationship Specialty Start Date End Date Kristine Mendez MD PCP - General 01/01/14 [address] [place] [address] documented as of this encounter
--- OUTSIDE RECORDS SUMMARY | 2022-01-05 07:58 | XMS_ITS | Encounter Summary ---
:1985 Author Organization [facility] Address [address] [place] [address] Care Team Providers Name Role Phone Kristine Mendez MD Primary Care Provider Reason for Referral (Routine) - Closed Specialty Diagnoses / Procedures Referred By Contact Refer red To Contact Diagnoses Family history of colon cancer Gabriela Mcfarlane, DO Procedures Endoscopy, colon, diagnostic [address] [address] [place] [address] Referral ID Status Reason Start Date Expiration Date Visits Requ ested Visits Authorized [id number] Closed 01/10/2019 04/10/2020 1 1 Reason for Visit (Routine) - Closed Specialty Diagnoses / Procedures Referred By Contact Refer red To Contact Diagnoses Family history of colon cancer Gabriela Mcfarlane, DO Procedures Endoscopy, colon, diagnostic [address] [address] [place] [address] Referral ID Status Reason Start Date Expiration Date Visits Requ ested Visits Authorized [id number] Closed 01/10/2019 04/10/2020 1 1 Encounter Details Date Type Department Care Team Description 02/10/2019 [facility] Jefferson Carrasco histor y of Encounter Gastroenterology MD Gabriel colon cancer Endoscopy Procedures [address] [address] [place] [address] [place] [address] Social History Tobacco Use Types Packs/Day Years [...] Colonoscopy in 3 years, follow up polyps RNATIONAL MARKETING INTERN documented in this encounter Procedure Notes Jefferson [...] and oxygen saturations were monitored continuously. The [id number] was introduced through the anus and advanced [...] previously scheduled. Procedure Code(s): --- Professional --- 30721, Colonoscopy, flexible; with removal of tumor(s), polyp(s), or other lesion(s) by snare technique 16079, Colonoscopy, flexible; with directed submucosal injection(s), any substance G0500, Moderate sedation services provided by the same physician or other qualified health cardiac care nurse performing a gastrointestinal endoscopic service that sedation supports, requiring the presence of an independent trained observer to assist in the monitoring of the patient's level of consciousness and physiological status; initial 15 minutes of intra-service time; patient age 5 years or older (additional time may be reported with 56074, as appropriate) Diagnosis Code(s): --- Professional --- Z80.0, Family history of malignant neoplasm of digestive organs D12.0, Benign neoplasm of cecum CPT copyright 2018 [employer]. All rights reserved. The codes documented in this report are preliminary and upon server assistant review may be revised to meet current [...] turations were monitored ? continuou sly. The [id number] was ? introduce d through the anus [...] Code(s): ?? --- Professional - -- ? 41180, Co lonoscopy, flexible; with ? removal o f tumor(s), polyp(s), or ? other les ion(s) by snare technique ? 16356, Co lonoscopy, flexible; with ? directed submucosal injection(s), any ? substance ? G0500, Mo derate sedation services ? provided by the same physician or ? other [facility] health care ? professio nal performing [...] time may ? [place] [address], as ? appropria te) Diagnosis Code(s): ?? --- Professional - -- ? Z80.0, Fa sebastian history of malignant ? neoplasm of digestive organs ? D12.0, Be nign neoplasm of cecum CPT copyright 2018 [employer]. All rights reserved. The codes documented in this report are preliminary and upon server assistant review may be revised to meet current [...] and oxygen saturations were monitored continuously. The [id number]-66 was introduced through the anus and advanced [...] previously scheduled. Procedure Code(s): --- Professional --- 90308, Colonoscopy, flexible; with removal of tumor(s), polyp(s), or other lesion(s) by snare technique 78330, Colonoscopy, flexible; with directed submucosal injection(s), any substance G0500, Moderate sedation services provided by the same physician or other qualified health cardiac care nurse performing a gastrointestinal endoscopic service that sedation supports, requiring the presence of an independent trained observer to assist in the monitoring of the patient's level of consciousness and physiological status; initial 15 minutes of intra-service time; patient age 5 years or older (additional time may be reported with 38990, as appropriate) Diagnosis Code(s): --- Professional --- Z80.0, Family history of malignant neoplasm of digestive organs D12.0, Benign neoplasm of cecum CPT copyright 2018 [employer]. All rights reserved. The codes documented in this report are preliminary and upon server assistant review may be revised to meet current compliance requirements. Jefferson Carrasco MD 02/10/2019 2:30:24 PM This document has been electronically si gned. Number of Addenda: 0 Note Initiated On: 02/10/2019 2:51 PM Endoscopy Report Gabriela Mcfarlane DO PN GI PROCEDURE ORDERABLES Performing Organization Address City/State/ZIP Code Phon e Number GI (PROVATION) GI (PROVATION) [place], [place] Surgical Path - GI (02/10/2019 2:24 PM CDT) Component Value Ref Test Analysis Performed At [facility] gist Range Method Time Signature Case Report Surgical Pathology ?Case: [id number] ? 02/13/2019 [facility] Authorizing Provider: ??Jefferson Vogt MD ? Collected: ? 02/10/2019 02:24 PM ? 9:35 AM LABORATOR Y Ordering Location: ? [facility] ? Received: ?02/10/2019 04:34 PM ? CDT ? Gastroenterology Endoscopy ? Procedures ? Pathologist: ? Jesse Villa MD ? Specimen: ?Colon, cecum, CECUM ? FINAL A. Colon, cecum, CECUM, polypectomy: [facility] Electronically DIAGNOSIS ?? Sessile serrated adenoma (s) 9:35 AM LABORATORY signed by CDT Gabriel Villa MD on 01/28 at 9:35 AM Gross A. The specimen is received in formalin and labeled with the patient's name and Colon, cecum, CECUM. The specimen consists of three landeros, flattened tissue fragments ranging from 0.3 cm to 1.5 cm in gre 02/13/2019 [facility] Description atest dimension. The largest fragment is bisected and the tissue is entirely submitted in one block. AW 9:35 AM LABOR ATORY CDT Clinical Polyp 02/13/2019 [facility] Information 9:35 AM LABORATORY CDT Microscopic Microscopic 02/13/2019 [facility] Description examination is 9:35 AM LABORATORY performed. CDT Embedded 02/13/2019 [facility] Images 9:35 AM LABORATORY CDT Specimen Anatomical Collection Method Collection Time Receive d Time (Source) Location / / Volume Laterality Tissue COLON STRUCTURE / 02/10/2019 2:24 PM 01/28 4:34 Unknown CDT PM CDT Jefferson Carrasco MD LAB PATHOLOGY Performing Organization Address City/State/ZIP Code Phon e Number [facility] [address] [place] [address] documented in this encounter Visit Diagnoses Diagnosis [...] 0203 documented in this encounter Care Teams Debate Director Relationship Specialty Start Date End Date Kristine Mendez MD PCP - General 01/01/14 [address] [place] [address] documented as of this encounter
--- OUTSIDE RECORDS SUMMARY | 2022-01-05 07:58 | XMS_ITS | Encounter Summary ---
:1985 Author Organization [employer] Address [address] [place] [address] Care Team Providers Name Role Phone Kristine Mendez MD Primary Care Provider Encounter Details Date Type Department Care Team Description 11/11/2017 edith Osuna [phone] Social History Tobacco Use Types Packs/Day Years [...] an antibiotic. I sent a prescription to [facility]/pharmacy. I?ve prescribed high dose amoxicillin, which the [...] 7 days Note: Refills: None Sent To: [facility]/pharmacy [id number] [place] [address]. [place] [address] Treatment Plan Self Care Tip Topics Inflammation [...] orders amoxicillin (amoxicillin) fluticasone (fluticasone) Allergies None [employer] Information [facility] [employer] We are an online clinic open 20/11. If you have any questions or comments about this visit, please call or email [email or web address]. FAMILY MEDICINEEDITH PROVIDER - 11/11/2017 12:00 AM [...] plan for free. Feel better soon. Rebeca CONTACT LENS FLASHING PUNCHER Treatment Plan Let?s get you feeling better in the next 24 hours by using a prescription nasal steroid and an effective blend of ccdm-emu-[id number] products to get you better faster. The [...] the virus. I sent your prescription to [facility]/pharmacy . If your symptoms don?t improve after 24 hours, or if you have questions, Request a Call Back and we?ll adjust your treatment for free. Order(s) fluticasone 50 mcg/actuation spray,suspension Lawrence 2 spray into both nostrils once a day as directed for 30 days Note: Refills: 2 Sent To: [facility]/pharmacy [address] [facility] [place] [address] Treatment Plan Self Care Tip Topics Your [...] longer term allergy plan, much like an locomotive crane operator helper would, to treat chronic nasal congestion and [...] None Current orders fluticasone (fluticasone) Allergies None [facility] [employer] [facility] [employer] We are an online clinic open 20/11. If you have any questions or comments about this visit, please call or email [email or web address]. documented in this encounter Plan of Treatment Not on filedocumented as of this encounter Visit Diagnoses Not on filedocumented in this encounter Care Teams Gear Coding Machine Operator Relationship Specialty Start Date End Date Kristine Mendez MD PCP - General 01/01/14 [address] [place] [address] documented as of this encounter
--- OUTSIDE RECORDS SUMMARY | 2022-01-05 07:58 | XMS_ITS | Encounter Summary ---
:1985 Author Organization [facility] Address [address] [place] [address] Care Team Providers Name Role Phone Kristine Mendez MD Primary Care Provider Encounter Details Date Type Department Care Team Description 01/31/2019 Notes/Orders [facility] [address] Gaurang Carrasco MD Gastroenterology [address] [place] [address] [place] [address] [phone] Social History Tobacco Use Types Packs/Day Years [...] on filedocumented in this encounter Care Teams Cloth Covered Helmet Puller Relationship Specialty Start Date End Date Kristine Mendez MD PCP - General 01/01/14 [address] [place] [address] documented as of this encounter
--- OUTSIDE RECORDS SUMMARY | 2022-01-05 07:58 | XMS_ITS | Encounter Summary ---
:1985 Author Organization [facility] Address [address] [place] [address] Care Team Providers Name Role Phone Kristine Mendez MD Primary Care Provider Reason for Visit Reason Comments BREAST LUMP Encounter Details Date Type Department Care Team Description 05/23/2019 Nurse Triage [facility] Tiana Mcfarlane, DO BREAST LUMP Services-CITY JAILER [address] [facility] Ad [address] [place] [address], [address] [place] [address] [place] [address] [phone] Social History Tobacco Use Types Packs/Day Years [...] Disposition ??? Breast lump Protocols used: BREAST [id number] Non-tender, dime sized, slightly mobile breast lump at 12:00 slightly above areola in left breast. First noticed last night. No fam hx of breast cancer. Pt denies hx of benign breast lumps but insurance underwriter noticed in hx in same breast. Denies redness, warmth, nipple discharge or flaking of nipple. Appointment made per protocol. Problem list reviewed as related to this call. Future Appointments Provider Department Center 05/23/2019 10:30 AM Madeleine Page APRN, GEAR NICKER [facility]-CITY JAILER PN CARR FR YTICAL CONSULTANT documented in this encounter Plan of Treatment Not on filedocumented as of this encounter Visit Diagnoses Not on filedocumented in this encounter Care Teams Visualization Developer Relationship Specialty Start Date End Date Kristine Mendez MD PCP - General 01/01/[address] [place] [address] documented as of this encounter
--- OUTSIDE RECORDS SUMMARY | 2022-01-05 07:58 | XMS_ITS | Encounter Summary ---
:1985 Author Organization [facility] Address [address] [place] [address] Care Team Providers Name Role Phone Kristine Mendez MD Primary Care Provider Encounter Details Date Type Department Care Team Description 03/02/2014 Lab Visit [facility] Pelvic pain in female [address] [place] [id number] Social History Tobacco Use Types Packs/Day Years [...] Routine 03/02/2014 5:00 PM Results for this METHODS SPECIALIST ENGINEER procedure are i n the results section. URINE MICROSCOPIC Routine 03/02/2014 4:34 PM Resu lts for this METHODS SPECIALIST ENGINEER procedure are i n the results section. URINALYSIS ROUTINE, Routine 03/02/2014 4:34 PM Pelvic pain in Results for this MICRO/CULTURE IF POS METHODS SPECIALIST ENGINEER female procedu re are in the results section. documented in this encounter Results Urine Culture (03/02/2014 5:00 PM METHODS SPECIALIST ENGINEER) [facility] Method Time Signature Source Urine HP CONVERSION Site HP CONVERSION Urine Culture No growth HP CONVERSION Specimen (Source) Anatomical Collection Method Collection Time Re ceived Time Location / / Volume Laterality Urine: 03/02/2014 5:00 PM METHODS SPECIALIST ENGINEER Apolonia Cm MD LAB_1 Performing Organization Address [facility] Phon e Number HP CONVERSION (ABNORMAL) URINE MICROSCOPIC (03/02/2014 4:34 PM METHODS SPECIALIST ENGINEER) [facility] Method Time Signature Urine WBC 0-2 0 - 4 HP CONVERSION Urine RBC 5-9 (A) 0 - 2 HP CONVERSION Bacteria Urine Occasional (A) HP CONVERS ION Epithelial Few HP CONVERSION Cells Specimen (Source) Anatomical Collection Method Collection Time Re ceived Time Location / / Volume Laterality Urine: 03/02/2014 4:34 PM METHODS SPECIALIST ENGINEER Narrative HP CONVERSION - 03/02/2014 4:59 PM METHODS SPECIALIST ENGINEER Performed at [facility], [address] [place] [address] Apolonia Cm MD LAB_1 Performing Organization Address [facility] Phon e Number HP CONVERSION (ABNORMAL) URINALYSIS ROUTINE, MICRO/CULTURE IF POS (03/02/2014 4:34 PM METHODS SPECIALIST ENGINEER) [facility] Method Time Signature Urine Type Urine:clean [...] U Specific 1.020 1.005 - HP CONVERSION Luna 1.030 Urobilinogen Negative Negative HP CONVERSION Urine Specimen (Source) Anatomical Collection Method Collection Time Re ceived Time Location / / Volume Laterality Urine: 03/02/2014 4:34 PM METHODS SPECIALIST ENGINEER Narrative HP CONVERSION - 03/02/2014 4:41 PM METHODS SPECIALIST ENGINEER Performed at [facility], [address] [place] [address] Apolonia Cm MD LAB_1 Performing Organization Address [facility] Phon e Number HP CONVERSION documented in this encounter Visit Diagnoses Diagnosis Pelvic pain in female Unspecified symptom associated with fema le genital organs documented in this encounter Care Teams Or Assistant Relationship Specialty Start Date End Date Kristine Mendez MD PCP - General 01/01/14 [address] [place] [address] documented as of this encounter
--- OUTSIDE RECORDS SUMMARY | 2022-01-05 07:58 | XMS_ITS | Encounter Summary ---
:1985 Author Organization [employer] Address [address] [place] [address] Care Team Providers Name Role Phone Kristine Mendez MD Primary Care Provider Reason for Visit Reason Comments Procedure Encounter Details Date Type Department Care Team Description 01/27/2014 Initial Consult [facility] [address] Leann Magaña ntoxic uninodular goiter (Primary Dx); Endocrinology MD Eduar Polycystic ovaries 3800 [facility] [address] [place] [phone] Social History Tobacco Use Types Packs/Day Years [...] you in 6 months. You can call [phone] to set up an appointment. If there [...] Filed: 02/18/142044 Note Time: 01/28/1445 Status: Signed House Cleaner Supervisor: Leann Magaña MD (Physician) NAME: YAMILET LORA MR#: [id number] CSN: [id number] AUTHENTICATING CLINICIAN: Leann Magaña MD CONFIRM #: [id number] LOC: 432 CLINIC PROGRESS NOTE DATE OF [...] reviewing treatment plan. RMM:MEDQ C: CONFIRM #: [id number] documented in this encounter Miscellaneous Notes Miscellaneous - 06/08/2016 3:31 PM CSTNotes Recorded by Leann Magaña MD on 01/28/2014 at 1:23 PMPoonuru pt. Please let pt know that thyroid fna was benign. RTC in 6 months as planned. W documented in this encounter Plan of Treatment [...] CDT ? FINAL CYTOLOGY REPORT Pathology #: [id number] ?Date Obtained: 01/27/2014 ? Date Received: 01/27/2014 [...] a benign adenomatoid no dule. CPT Codes: ?33754 x 1 ? End of Report Transcriptions [...] ovaries documented in this encounter Care Teams Igniter Capper Relationship Specialty Start Date End Date Kristine Mendez MD PCP - General 01/01/14 [address] [place] [id number] documented as of this encounter
--- OUTSIDE RECORDS SUMMARY | 2022-01-05 07:58 | XMS_ITS | Encounter Summary ---
:1985 Author Organization [facility] Address [address] [place] [address] Care Team Providers Name Role Phone Kristine Mendez MD Primary Care Provider Reason for Visit Procedure/Equipment (Routine) - Incomplete Specialty Diagnoses / Procedures Referred By Contact Refer red To Contact Diagnoses Left breast mass Madeleine Page, TERRAZZO JOURNEYMAN, DRY COLOR MIXER [place] [address] [place] [address] Referral ID Status Reason Start Date Expiration Date Visits V isits Requested Authorized [id number] Incomplete 05/28/2019 08/26/2020 1 1 Encounter Details Date Type Department Care Team Description 06/03/2019 Ancillary Procedure [facility] [address] Madeleine Page , Left breast mass Mammography TERRAZZO JOURNEYMAN, DRY COLOR MIXER 3850 [facility] [address] [place] [address] [phone] Social History Tobacco Use Types Packs/Day Years [...] PM CST Left breast pathology fibroadenoma. LOGAN IFIED PUBLIC ACCOUNTANT Madeleine Page APRN, CNP - 06/03/2019 2:15 PM CST Left breast biopsy pathology fibroadenoma and stromal fibrosis. Start screening mammogram at age 38.[employer]ent Track message. MS-NAWAF IFIED PUBLIC ACCOUNTANT documented in this encounter Plan of Treatment Not on filedocumented as of this encounter Procedures Procedure Name Priority Date/Time Associated Diagnosis Comme nts MM US BX BREAST LT Routine 06/03/2019 2:34 PM Left breast mass Results for this CERTIFIED PUBLIC ACCOUNTANT procedure are i n the results section. SURGICAL PATHOLOGY, Routine 06/03/2019 2:34 PM Left breast mas s Results for this BREAST CERTIFIED PUBLIC ACCOUNTANT procedure are i n the results section. documented in this encounter Results MM US Bx Breast Lt (06/03/2019 2:34 PM CERTIFIED PUBLIC ACCOUNTANT) Anatomical Region Laterality Modality Breast Left Ultrasound Specimen (Source) Anatomical Collection Method Collection Time Re ceived Time Location / / Volume Laterality 06/03/2019 2:11 PM CERTIFIED PUBLIC ACCOUNTANT Impressions 06/05/2019 10:46 AM CERTIFIED PUBLIC ACCOUNTANT ULTRASOUND GUIDED BREAST BIOPSY ? HISTORY: ??Palpable [...] ERIC Surgical Path, Breast (06/03/2019 2:34 PM CERTIFIED PUBLIC ACCOUNTANT) Component Value Ref Test Analysis Performed At [facility] gist Range Method Time Signature Case Report Surgical Pathology ?Case: [id number] ? 06/04/2019 [facility] Authorizing Provider: ??Madeleine Azevedo APRN, CNP Collected: ? 06/03/2019 02:34 PM ? 1:42 PM CERTIFIED PUBLIC ACCOUNTANT LABORATOR Y Ordering Location: ? [place] [address] ? Received: ?06/03/2019 03:50 PM ? Mammography ? Pathologist: ? Avtar Martinez MD ? Specimen: ?Breast, left, 12 o'clock ultrasound ? FINAL A. Breast, left, 12 o'clock ultrasound, biopsy: 06/04/2019 [facility] Electronically DIAGNOSIS ?? Fibroadenoma and stromal fibrosis 1:4 2 PM CERTIFIED PUBLIC ACCOUNTANT LABORATORY signed by Avtar Martinez MD has reviewed this case and concurs with t elsie diagnosis. MD Joesph on 06/04/2019 a t 1:42 PM Gross A. The specimen is received in formalin and labeled with the patient's name and Breast, left, 12 o'clock ultrasound.?? The specimen consists of 2.8 x 0.6 x 0.3 cm aggregate of multiple entangled and f 08/2019 [facility] Description ragmented landeros-yellow cores o f soft tissue.?? The specimen is inked green.?? The specimen was collected and placed in formalin at 2:33 PM, 06/03/2019.?? The specimen is entirely submitted in 1 cassette. SH 1:42 PM CERTIFIED PUBLIC ACCOUNTANT LABORATORY Clinical palpable 06/04/2019 [facility] Information 1:42 PM CERTIFIED PUBLIC ACCOUNTANT LABORATORY Microscopic Microscopic 06/04/2019 [facility] Description examination is 1:42 PM CERTIFIED PUBLIC ACCOUNTANT LABORATORY performed. Embedded 06/04/2019 [facility] Images 1:42 PM CERTIFIED PUBLIC ACCOUNTANT LABORATORY Specimen Anatomical Collection Method Collection Time Receive d Time (Source) Location / / Volume Laterality Tissue BREAST STRUCTURE / 06/03/2019 2:34 PM 07/2019 3:50 Unknown CERTIFIED PUBLIC ACCOUNTANT PM CERTIFIED PUBLIC ACCOUNTANT Madeleine Page APRN, DRY COLOR MIXER LAB PATHOLOGY Performing Organization Address City/State/ZIP Code Phon e Number [facility] [address] [place] [address] documented in this encounter Visit Diagnoses Diagnosis Left breast mass Lump or mass in breast documented in this encounter Administered Medications Inactive Administered Medications - up to 3 most recent administrations Medication Order MAR Action Action Date Dose Rate Site lidocaine (XYLOCAINE) 1 % Given 06/03/2019 3:00 PM CERTIFIED PUBLIC ACCOUNTANT 10 mL Other injection 10 mL 10 mL, Subcutaneous, ONCE, On Sun06/03/19 at 1500, For 1 dose lidocaine-epinephrine 1 %-1:048538 Given 06/03/2019 3:00 PM CERTIFIED PUBLIC ACCOUNTANT 6 mL Other injection 6 mL 6 mL, Subcutaneous, ONCE, On Sun06/03/19 at 1500, For 1 dose documented in this encounter Care Teams Tan Room Supervisor Relationship Specialty Start Date End Date Kristine Mendez MD PCP - General 01/01/14 [address] [place] [address] documented as of this encounter
--- OUTSIDE RECORDS SUMMARY | 2022-01-05 07:58 | XMS_ITS | Encounter Summary ---
:1985 Author Organization [facility] Address [address] [place] [address] Care Team Providers Name Role Phone Kristine Menedz MD Primary Care Provider Encounter Details Date Type Department Care Team Description 04/12/2018 edith Osuna [phone] Social History Tobacco Use Types Packs/Day Years [...] ear symptoms. I sent your prescriptions to [facility] [address]. I???ve also listed a few self-care tips [...] Note: Refills: None fluticasone 50 mcg/actuation spray,suspension [place] 1-2 spray into both nostrils once a day as needed for 30 days Note: Refills: None Sent To: [facility] [address] PARK MAINTENANCE TECHNICIAN [place], [place] [id number] Treatment Plan Self Care Tip Topics Ease [...] orders fluticasone (fluticasone) amoxicillin (amoxicillin) Allergies None SeeFuture Information SeeFuture by Front Desk HQ We are an online clinic open 20/11. If you have any questions or comments about this visit, please call or email [email or web address] F TALENT OFFICER documented in this encounter Plan of Treatment Not on filedocumented as of this encounter Visit Diagnoses Not on filedocumented in this encounter Care Teams Museum Assistant Relationship Specialty Start Date End Date Kristine Mendez MD PCP - General 01/01/14 [address] [place] [address] documented as of this encounter
--- OUTSIDE RECORDS SUMMARY | 2022-01-05 07:58 | XMS_ITS | Encounter Summary ---
:[address] [facility] Address [address] [place] [address] Care Team Providers Name Role Phone Kristine Mendez MD Primary Care Provider Encounter Details Date Type Department Care Team Description 03/03/2014 Notes/Orders [facility] Apolonia Cm, Radha pa in in female Medicine MD (Primary Dx) [address] [place] [address] [place] [address] [phone] Social History Tobacco Use Types Packs/Day Years [...] organs documented in this encounter Care Teams Lens Gauger Relationship Specialty Start Date End Date Kristine Mendez MD PCP - General 01/01/14 [address] [place] [address] documented as of this encounter
--- OUTSIDE RECORDS SUMMARY | 2022-01-05 07:58 | XMS_ITS | Encounter Summary ---
:1985 Author Organization [facility] Address [address] [place] [address] Care Team Providers Name Role Phone Kristine Mendez MD Primary Care Provider Reason for Referral (Routine) - Closed Specialty Diagnoses / Procedures Referred By Contact Refer red To Contact Diagnoses Family history of colon cancer Gabriela Mcfarlane DO Procedures Endoscopy, colon, diagnostic [address] [place] [address] Referral ID Status Reason Start Date Expiration Date Visits Requ ested Visits Authorized [id number] Closed 01/10/2019 04/10/2020 1 1 Reason for Visit Reason Comments Annual Exam Encounter Details Date Type Department Care Team Description 01/10/2019 Office Visit [facility] Gabriela Mcfarlane physical exam (Primary Dx); Services-SOLUTIONS SPECIALIST M, DO Pap smear for cervical cancer screening; [address] [facility], [address] Robles gu history of colon cancer [address] [place] [address] [phone] (Wo rk) Social History Tobacco Use Types [...] Mcfarlane, DO - 01/10/2019 10:00 AM CDT [facility] Chief Complaint: Routine health [...] Procedure Laterality Date ??? WISDOM TEETH EXTRACTION Corporate Giving Manager Hx: Last Pap smear: 2013 History of [...] turations were monitored ? continuou sly. The [id number] was ? introduce d through the anus [...] Code(s): ?? --- Professional - -- ? 38757, Co lonoscopy, flexible; with ? removal o f tumor(s), polyp(s), or ? other les ion(s) by snare technique ? 74490, Co lonoscopy, flexible; with ? directed submucosal injection(s), any ? substance ? G0500, Mo derate sedation services ? provided by the same physician or ? other [facility] health care ? professio nal performing [...] time may ? [place] [address], as ? appropria te) Diagnosis Code(s): ?? --- Professional - -- ? Z80.0, Fa sebastian history of malignant ? neoplasm of digestive organs ? D12.0, Be nign neoplasm of cecum CPT copyright 2018 [employer]. All rights reserved. The codes documented in this report are preliminary and upon marketing support specialist review may be revised to meet [...] and oxygen saturations were monitored continuously. The [id number] was introduced through the anus and advanced [...] previously scheduled. Procedure Code(s): --- Professional --- 19341, Colonoscopy, flexible; with removal of tumor(s), polyp(s), or other lesion(s) by snare technique 58784, Colonoscopy, flexible; with directed submucosal injection(s), any substance G0500, Moderate sedation services provided by the same physician or other qualified health career development counselor performing a gastrointestinal endoscopic service that sedation supports, requiring the presence of an independent trained observer to assist in the monitoring of the patient's level of consciousness and physiological status; initial 15 minutes of intra-service time; patient age 5 years or older (additional time may be reported with [address], as appropriate) Diagnosis Code(s): --- Professional --- Z80.0, Family history of malignant neoplasm of digestive organs D12.0, Benign neoplasm of cecum CPT copyright 2018 [employer]. All rights reserved. The codes documented in this report are preliminary and upon marketing support specialist review may be revised to meet current compliance requirements. Jefferson Carrsaco MD 02/10/2019 2:30:24 PM This document has been electronically si gned. Number of Addenda: 0 Note Initiated On: 02/10/2019 2:51 PM Endoscopy Report Gabriela GOLDBERG GI PROCEDURE ORDERABLES Performing Organization Address City/State/ZIP Code Phon e Number GI (PROVATION) GI (PROVATION) [place], [place] HPV with 16 18 Genotyping (01/10/2019 10:37 AM CDT) [facility] Method Time Signature HPV High Risk Not Detected Not detected 01/14/2019 [facility] Type 16 PCR 2:10 PM CDT LABORATORY Comment: F;NONE HPV High Risk Not Detected Not Detected 01/14/2019 2:10 PM [facility] Type 18 PCR CDT Comment: F;NONE HPV High Risk Not Detected Not detected 01/14/2019 2:10 PM [facility] Other Than CDT 16/18 Comment: F;NONE Specimen Anatomical Collection Method Collection Time Receive d Time (Source) Location / / Volume Laterality Cervical Broom ENTIRE ENDOCERVIX 01/10/2019 10:37 12/29 / Unknown AM CDT 10:42 AM CDT Narrative [facility] - 01/14/2019 2:10 P M CDT [...] and its pe rformance characteristics determined by [facility]. It has not been cleared or approved by the FDA. The laboratory ??is required under CLIA as qualified to perform high-complexity kim ting. This test is used for clinical purposes. It should not be regarded as investigational or for research. Gabriela Mcfarlane DO LAB_1 Performing Organization Address City/State/ZIP Code Phon e Number [facility] [address] [place] [address] PAP Test (01/10/2019 10:37 AM CDT) Component Value Ref Test Analysis Performed At [facility] Method Time Signature Case Report Pap ? Case: [id number] ? 01/16/2019 [facility] Authorizing Provider: ??Gabriela Tomlinson, DO ?Collected: ? 01/10/2019 10:37 AM ? 10:41 AM LABORATOR Y Ordering Location: ? [facility] ? Received: ?01/10/2019 10:42 AM ? CDT ? Services-SOLUTIONS SPECIALIST ? First Screen: ? Adrian, Paula L ? Specimen: ?Pap Test, Rou enriqueta, Cervix/Endocervix ? Pap Specimen Satisfactory for 01/16/2019 [facility] Adequacy evaluation, 10:41 AM LABORATORY endocervical/chong CDT sformation zone component present. Pap Negative for 01/16/2019 [facility] Electr onically Interpretation intraepithelial 10:41 AM LABORATOR Y signed by lesion or CDT Lisseth, malignancy Paula tuttle (NILM). 01/16/2019 at 10:41 AM Gross The specimen is 01/16/2019 [facility] Description received in 10:41 AM LABORATORY [facility] [...] false-negative reports may occur. Embedded Images 01/16/2019 [facility] 10:41 AM LABORATORY CDT Specimen Anatomical Collection Method Collection Time Receive d Time (Source) Location / / Volume Laterality Other Specimen ENTIRE ENDOCERVIX 01/10/2019 10:37 12/29 Type / Unknown AM CDT 10:42 AM CDT Comment: LMP: Patient's last menstrual p eriod was 12/05/2018. Gabriela Mcfarlane DO LAB PATHOLOGY Performing Organization Address City/State/ZIP Code Phon e Number [facility] [address] [place] [address] documented in this encounter Visit Diagnoses Diagnosis [...] tract documented in this encounter Care Teams Mixer Blender Relationship Specialty Start Date End Date Kristine Mendez MD PCP - General 01/01/14 [address] [place] [address] documented as of this encounter
--- OUTSIDE RECORDS SUMMARY | 2022-01-05 07:58 | XMS_ITS | Encounter Summary ---
:1985 Author Organization [employer] Address [address] [place] [address] Care Team Providers Name Role Phone Kristine Mendez MD Primary Care Provider Reason for Visit Reason Comments RESULTS, TEST Encounter Details Date Type Department Care Team Description 01/01/[address] [facility] Pete Mendez MD RESULTS, TEST Medicine [address] [facility] [address] [place] [address] [place] [address] [phone] Social History Tobacco Use Types Packs/Day Years [...] on filedocumented in this encounter Care Teams Quality Worker Relationship Specialty Start Date End Date Kristine Mendez MD PCP - General 01/01/14 [address] [place] [address] documented as of this encounter
--- OUTSIDE RECORDS SUMMARY | 2022-01-05 07:58 | XMS_ITS | Encounter Summary ---
:1985 Author Organization [facility] Address [address] [place] [address] Care Team Providers Name Role Phone Kristine Mendez MD Primary Care Provider Reason for Visit Reason Comments ABDOMINAL CRAMPING--ED Encounter Details Date Type Department Care Team Description 09/29/2020 Nurse Triage Careline Unknown, ABDOMINAL CRAMPING--ED [address] Physician [place], [place] [address] [phone] [place], [place] [address] Social History Tobacco Use Types Packs/Day Years [...] goes and lasts for a few seconds. Sterling/Parity: Gestational Age (by GAURAV or LMP): per patient 6-7 weeks Reviewed with patient pertinent medical history and risk status (as it relates to the call): Yes None, has first OB visit 10[facility]14/20 at [facility] [place] 2]. PCOS. Reviewed with patient pertinent medications (as [...] - VAGINAL BLEEDING LESS THAN 20 WEEKS [id number] Advised careline available 20/11. Call back for any concerns, new or worsening symptoms. Sheila Morris - 09/29/2020 3:27 PM CDT Verified patient identity using three identifiers: Yes Caller's relationship to patient: Self At which care system or clinic is the patient normally seen? [facility] Symptoms Describe the reason for call/symptoms [...] on filedocumented in this encounter Care Teams Hammerer Tab Relationship Specialty Start Date End Date Kristine Mendez MD PCP - General 01/01/14 [address] [place] [address] documented as of this encounter
--- OUTSIDE RECORDS SUMMARY | 2022-01-05 07:58 | XMS_ITS | Encounter Summary ---
:1985 Author Organization [employer] Address [address] [place] [address] Care Team Providers Name Role Phone Kristine Mendez MD Primary Care Provider Reason for Visit Reason Comments LAB RESULTS Encounter Details Date Type Department Care Team Description 06/04/2019 Telephone [facility] [address] Madeleine Page, TALENT RECRUITER, LAB RESULTS Mammography DINING ROOM MAID [address] [address] [place] [address] [place], [place] [address] (Wo rk) Social History Tobacco Use Types [...] call with any other concerns or questions. GIOUS EDUCATOR documented in this encounter Plan of Treatment Not on filedocumented as of this encounter Visit Diagnoses Not on filedocumented in this encounter Care Teams Assembler Skylights Relationship Specialty Start Date End Date Kristine Mendez MD PCP - General 01/01/14 [address] [place] [address] documented as of this encounter
--- OUTSIDE RECORDS SUMMARY | 2022-01-05 07:59 | XMS_ITS | Encounter Summary ---
:1985 Author Organization [email or web address] Address [address] [place] [address] Care Team Providers Name Role Phone Unavailable Primary Care Provider Unavailable Reason for Visit Reason Comments LEG PAIN Encounter Details Date Type Department Care Team Description 09/22/2011 Telephone [facility] Chanel Herman PA-C LEG PAIN [address] [place] [address] [place] [address] [phone] (Wo rk) Social History Tobacco Use Types [...]
--- OUTSIDE RECORDS SUMMARY | 2022-01-05 07:59 | XMS_ITS | Encounter Summary ---
:1985 Author Organization [employer] Address [address] [place] [address] Care Team Providers Name Role Phone Unavailable Primary Care Provider Unavailable Reason for Visit Reason Comments Refill Encounter Details Date Type Department Care Team Description 07/31/2013 Refill Apolonia Martell MD Refill [address] [place] [address] [place] [address] [phone] (Wo rk) Social History Tobacco Use Types [...] rx faxed for 28 days.Advised to call [phone] to schedule.DS Chanel Herman PA-C - 08/04/2013 [...]
--- OUTSIDE RECORDS SUMMARY | 2022-01-05 07:59 | XMS_ITS | Encounter Summary ---
:1985 Author Organization [facility] Address [address] [place] [address] Care Team Providers Name Role Phone Unavailable Primary Care Provider Unavailable Reason for Visit Reason Comments Annual Exam Encounter Details Date Type Department Care Team Description 09/15/2011 Office Visit [facility] GastChanel diana M, Well adult exam (Primary Dx) ; [address] PA-C Need for hepatitis B vaccination; [place] [address] [address] [facility] [place] Breast lump on left side at 1 o'clock position [phone] [place], [place] [address] (Wo rk) Social History Tobacco Use Types [...] this encounter Patient Instructions Patient InstructionsCorry Murillo, STEEL POURER - 09/15/2011 1:34 PM CDT Thank you for enrolling in [employer]. Please follow the instructions below to securely access your online medical record. [employer]xtens allows you to send messages to your doctor, view your test results, renewyour prescriptions, schedule appointments, and more. How Do I Sign Up? 1. In your Internet browser, go to: [email or web address] 2. Click on the Sign Up Now link in the Sign In box. You will see the New Member Sign Up page. 3. Enter your Ixtens Access Code exactly as it appears below. You will not need to use this code after you???ve completed the sign-up process. If you do not sign up before the expiration date, you must request a new code. Ixtens Access Code: [email or web address] Expires: 10/15/11 01:28 PM 4. Enter your Social Security Number ([id number]) and Date of (mm/dd/yyyy) as indicated and click Submit. You will be taken to the next sign- up page. 5. Create a Ixtens ID. This will be your Ixtens login ID and cannot be changed, so think of one that is secure and easy to remember. 6. Create a Ixtens password. You can change your password at any time. 7. Enter your Password Reset Question and Answer. This can be used at a later time if you forget your password. 8. Enter your e-mail address. You will receive e-mail notification when new information is availablein Ixtens. 9. Click Sign Up. You can now view your medical record. Additional Information If you have questions, you can call [phone] to talk to our Ixtens staff. Remember, Ixtens is NOT to be used for urgent needs. For medical emergencies, dial 911. Thank you for enrolling in [employer]. Please follow the instructions below to securely access your online medical record. I[employer]ens allows you to send messages to your doctor, view your test results, renewyour prescriptions, schedule appointments, and more. How Do I Sign Up? 10. In your Internet browser, go to: [email or web address] 11. Click on the Sign Up Now link in the Sign In box. You will see the New Member Sign Up page. 12. Enter your Ixtens Access Code exactly as it appears below. You will not need to use this code after you???ve completed the sign-up process. If you do not sign up before the expiration date, you must request a new code. Ixtens Access Code: [email or web address] Expires: 10/15/11 01:28 PM 13. Enter your Social Security Number ([id number]) and Date of (mm/dd/yyyy) as indicated and click Submit. You will be taken to the next sign- up page. 14. Create a Ixtens ID. This will be your Ixtens login ID and cannot be changed, so think of one that is secure and easy to remember. 15. Create a Ixtens password. You can change your password at any time. 16. Enter your Password Reset Question and Answer. This can be used at a later time if you forget your password. 17. Enter your e-mail address. You will receive e-mail notification when new information is available in Ixtens. 18. Click Sign Up. You can now view your medical record. Additional Information If you have questions, you can call [phone] to talk to our Ixtens staff. Remember, Ixtens is NOT to be used for urgent [...] hormones. She has never had any pregnancies. 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 Smoking status: [...] adenopathy. Pelvic: Normal external genitalia and urethra. [place], moist vaginal and cervical mucosa, without lesions. [...]
--- OUTSIDE RECORDS SUMMARY | 2022-01-05 07:59 | XMS_ITS | Encounter Summary ---
:1985 Author Organization [facility] Address [address] [place] [address] Care Team Providers Name Role Phone Kristine Mendez MD Primary Care Provider Encounter Details Date Type Department Care Team Description 01/01/2014 Lab Visit [facility] Thyroid mass; [address] [facility] Lymphadenopathy [place], [place] [address] Social History Tobacco Use Types Packs/Day Years [...] Results (ABNORMAL) Differential (01/01/2014 11:02 AM CDT) [facility] Method Time Signature Absolute 1.6 (L) [...] - 01/01/2014 11:19 AM CDT Performed at [facility], [address] [place] [address] Kristine Mendez MD LAB_1 Performing Organization Address [facility] Phon e Number HP CONVERSION HIV ANTIBODY (01/01/2014 11:02 AM CDT) athologist Signature HIV 1/HIV 2 Non-React Non-Reacti HP CONVERSION ve Specimen Anatomical Collection Method Collection Time Receive d Time (Source) Location / / Volume Laterality 01/01/2014 11:02 01/01/2014 3:54 AM CDT PM CDT Kristine Mendez MD LAB_1 Performing Organization Address [facility] Phon e Number HP CONVERSION Caroline Test (01/01/2014 11:02 AM CDT) [facility] Method Time Signature Mononucleosis Negative Negative HP CONVERSION Screen Specimen Anatomical Collection Method Collection Time Receive d Time (Source) Location / / Volume Laterality 01/01/2014 11:02 01/01/2014 AM CDT 11:02 AM CDT Narrative HP CONVERSION - 01/01/2014 11:14 AM CDT Performed at [facility], [address] [place] [address] Kristine Mendez MD LAB_1 Performing Organization Address [facility] Phon e Number HP CONVERSION Antithyroid Peroxidase (01/01/2014 11:02 AM CDT) athologist Signature Thyroid 2.8 0.0 - 9.0 HP CONVERSION Peroxidase (TPO) Antibodies Specimen Anatomical Collection Method Collection Time Receive d Time (Source) Location / / Volume Laterality 01/01/2014 11:02 01/01/2014 4:01 AM CDT PM CDT Narrative HP CONVERSION - 01/02/2014 2:51 PM CDT Performed at [facility] [address] [place] [address] Kristine Mendez MD LAB_1 Performing Organization Address [...] - 01/01/2014 11:19 AM CDT Performed at [facility], [address] [place] [address] Kristine Mendez MD LAB_1 Performing Organization Address City/State/ZIP Code Phon e Number HP CONVERSION Free T4 (01/01/2014 11:02 AM CDT) athologist Signature Thyroxine, Free 1.1 0.8 - 1.8 HP CONVERSION ng/dL Specimen Anatomical Collection Method Collection Time Receive d Time (Source) Location / / Volume Laterality 01/01/2014 11:02 01/01/2014 3:54 AM CDT PM CDT Kristine Mendez MD LAB_1 Performing Organization Address City/[facility] Phon e Number HP CONVERSION [...] nodes documented in this encounter Care Teams Construction Worker Relationship Specialty Start Date End Date Kristine Mendze MD PCP - General 01/01/14 [address] [place] [address] documented as of this encounter
--- OUTSIDE RECORDS SUMMARY | 2022-01-05 07:59 | XMS_ITS | Encounter Summary ---
:1985 Author Organization [facility] Address [address] [place] [address] Care Team Providers Name Role Phone Jeri García MD Primary Care Provider Encounter Details Date Type Department Care Team Description 07/09/2008 PN Conversion Only NICOLLET CONVERSIO N Lidia Aquino APRN, [address] [place] [address] [place] [address] (Wo rk) Social History Tobacco [...] on filedocumented in this encounter Care Teams Emergency Services Director Relationship Specialty Start Date End Date Jeri García MD PCP - General 08/02/10 09/06/11 [address] [place] [id number] documented as of this encounter
--- OUTSIDE RECORDS SUMMARY | 2022-01-05 07:59 | XMS_ITS | Encounter Summary ---
:1985 Author Organization [facility] Address [address] [place] [address] Care Team Providers Name Role Phone Unavailable Primary Care Provider Unavailable Encounter Details Date Type Department Care Team Description 07/21/2012 Notes/Orders [place] Kelle C Jennifer Aguilera, Cystitis [address] [facility] AUTOMOTIVE SERVICE WRITER, DAMPER FITTER [place], [place] [address] Social History Tobacco Use [...] UA, NO MICROSCOPIC (07/21/2012 12:10 PM CDT) [employer] Method Time Signature Urine Color Yellow [facility] [...] PM CDT PM CDT Jennifer Alexis APRN, DAMPER FITTER LAB_1 Performing Organization Address City/State/ZIP Code Phon e Number [facility] [phone] [address] URINE CULTURE (07/21/2012 12:10 PM CDT) Component Value Ref Test Analysis Performed At [employer] Range Method Time Signature Specimen Urine [facility] Description Midstream Special Unspecified [facility] Requests Culture > 100,000 [facility] col/ml Escherichia coli Report Status Final [facility] 07/23/2012 Organism > 100,000 [facility] col/ml Escherichia coli Specimen Anatomical Collection Method [...] Alexis APRN, CNP LAB_1 Performing Organization Address City/State/[facility] Code [facility] e Number [facility] [phone] [address] documented in this encounter Visit Diagnoses Diagnosis Cystitis Cystitis, unspecified documented in this encounter
--- OUTSIDE RECORDS SUMMARY | 2022-01-05 07:59 | XMS_ITS | Encounter Summary ---
:1985 Author Organization [facility] Address [address] [place] [address] Care Team Providers Name Role Phone Kristine Mendez MD Primary Care Provider Reason for Visit Reason Comments MASS Encounter Details Date Type Department Care Team Description 01/01/2014 Office Visit [facility] Kristine Mendez, Thy elise whelan (Primary Dx); Medicine [facility] [address] [facility] [address] [place] [address] [place] [phone] [address] Social History Tobacco Use Types Packs/Day Years [...] included. Please call the Endocrinology dept. at [phone] to schedule your appointment. Labs today Thyroid [...] about any medicines you take. This includes kwux-zps-cijrebt medicines. ?? Wear a medical alert bracelet [...] Where can you learn more? Go to [email or web address]. Enter E754 in the search box to learn more about Thyroid Nodules: After Your Visit. Last Revised: October 10, 2012 ?? [id number] [employer]. Care instructions adapted under license by your healthcare professional. If you have questions about a medical condition or this instruction, always ask your healthcare professional. 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 Smoking status: Never Smoker ??? Smokeless tobacco: Not on file ??? Alcohol Use: No Comment: rare ??? Drug Use: No ??? Sexual Activity: Partners: Male Control/ Protection: Other Topics Concern ??? Exercise Yes ??? Seat Belt Yes ??? Special Diet No ??? 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 Info from [facility] given on thyroid nodules. Orders Placed This Encounter Procedures ??? US Thyroid (Standard) ??? Thyroid Stimulating Hormone ??? Free T4 ??? Complete Blood Count W/Diff ??? Thyroid Peroxidase (Tpo) Antibody ??? Mononucleosis Screen ??? HIV Antibody ??? ENDOCRINOLOGY CONSULT ADULT (AMB) Patient Instructions Please call the Endocrinology dept. at [phone] to schedule your appointment. Labs today Thyroid [...] about any medicines you take. This includes bllm-rwr-fikmyap medicines. ?? Wear a medical alert bracelet [...] Where can you learn more? Go to [email or web address]/[email or web address]. Enter E754 in the search box to learn more about Thyroid Nodules: After Your Visit. Last Revised: October 10, 2012 ?? [id number] [employer]. Care instructions adapted under license by your healthcare professional. If you have questions about a medical condition or this instruction, always ask your healthcare professional. [employer] disclaims any warranty or liability for your [...] nodes documented in this encounter Care Teams E Commerce Specialist Relationship Specialty Start Date End Date Kristine Mendez MD PCP - General 01/01/14 [address] [place] [address] documented as of this encounter
--- OUTSIDE RECORDS SUMMARY | 2022-01-05 07:59 | XMS_ITS | Encounter Summary ---
:1985 Author Organization [facility] Address [address] [place] [address] Care Team Providers Name Role Phone Unavailable Primary Care Provider Unavailable Reason for Visit Reason Onset Date Comments LAB RESULTS 07/23/2012 Encounter Details Date Type Department Care Team Description 07/23/2012 Telephone Urgent Care [facility] Kirsten Quiroz WAITER/WAITRESS INFORMAL RESULTS [address] [facility] [place] [address] [phone] [place], [place] [address] Social History Tobacco Use [...]
--- OUTSIDE RECORDS SUMMARY | 2022-01-05 07:59 | XMS_ITS | Encounter Summary ---
:1985 Author Organization [facility] Address [address] [place] [address] Care Team Providers Name Role Phone Unavailable Primary Care Provider Unavailable Reason for Visit Reason Comments Nausea Abdominal Pain Encounter Details Date Type Department Care Team Description 06/26/2012 [facility], UTI (urinary tract infection ) (Primary Dx); [address] PA-C Abdominal pain; [place] [address] [address] Nausea alone [phone] [place] RE[place] [id number] Social History Tobacco Use Types Packs/Day Years Used Date Smoking Tobacco: Never Alcohol Use Standard Drinks/Week Comments No 0 (1 standard drink = 0.6 oz pure alcoho l) Sex Assigned at Date Recorded Not on file documented as of this encounter Last Filed Vital Signs Vital Sign Reading Time Taken Comments Blood Pressure 124/86 06/26/2012 10:55 AM TRANSIT BUS DRIVER Pulse 96 06/26/2012 10:55 AM TRANSIT BUS DRIVER Temperature 36.6 ??C (97.9 ??F) 06/26/2012 10:55 AM TRANSIT BUS DRIVER Respiratory Rate - - Oxygen Saturation - - Inhaled Oxygen Concentration - - Weight 55.8 kg (123 lb) 06/26/2012 10:55 AM TRANSIT BUS DRIVER Height - - Body Mass Index 18.03 [...] Rico Hester PA-C - 06/26/2012 12:06 PM TRANSIT BUS DRIVER 18-year-old female patient presents with four-day history [...]
--- OUTSIDE RECORDS SUMMARY | 2022-01-05 07:59 | XMS_ITS | Encounter Summary ---
:1985 Author Organization [facility] Address [address] [place] [address] Care Team Providers Name Role Phone Unavailable Primary Care Provider Unavailable Encounter Details Date Type Department Care Team Description 07/01/[address] [address] Scan [address] [place], [place] [address] Social History Tobacco Use Types Packs/Day Years [...]
--- OUTSIDE RECORDS SUMMARY | 2022-01-05 07:59 | XMS_ITS | Encounter Summary ---
:1985 Author Organization [facility] Address [address] [place] [address] Care Team Providers Name Role Phone Jeri García MD Primary Care Provider Encounter Details Date Type Department Care Team Description 01/14/2009 Office Visit [facility] [address] Travel Vanessa Mckay MD Clinic [address] [facility] [address] [place] [address] [place], [place] [address] [phone] Social History Tobacco Use Types Packs/Day Years [...] 0000 Note Time: 01/14/09 0001 Status: Signed Cardiology Consultants: Vanessa Moseley RN (Registered Nurse) Travel [facility] Initial Visit Patient is seen in Travel Clinic individually for travel education and counseling. Barrier(s) to care: None. TRAVEL PLANS Patient states they are planning to travel to: [place], in [facility] and [place], [place] for 3 weeks from [facility] to [facility] in [place] and malaria areas, [facility], [place], [facility] and rural areas, [place] in [facility] and south into [facility] Plans include travel to and/or lodging at: [...] Diphtheria/Tetanus, Hepatitis A, Hepatitis B, HIV, Influenza, Armenian Encephalitis, Leishmaniasis, Malaria, Polio, Rabies--pre-exposure schedule, Rabies--post-exposure [...] on filedocumented in this encounter Care Teams Senior Administrative Associate Relationship Specialty Start Date End Date Jeri García MD PCP - General 08/02/10 09/06/11 [address] [place] [address] documented as of this encounter
--- OUTSIDE RECORDS SUMMARY | 2022-01-05 07:59 | XMS_ITS | Encounter Summary ---
:1985 Author Organization [employer] Address [address] [place] [address] Care Team Providers Name Role Phone Unavailable Primary Care Provider Unavailable Reason for Visit Reason Comments Medication Questions Encounter Details Date Type Department Care Team Description 06/25/2012 Telephone [facility] Chanel Herman, Medication Questions [address] [employer] [place], [place] [phone] [address] [facility] [phone] [address] [place], [place] [address] (Wo rk) Social History [...] for the pt with Dr. Cm's advice. S MECHANIC Apolonia Cm MD - 06/25/2012 8:34 PM [...] us know if she has any issues. S MECHANIC Luann Suarez RN - 06/25/2012 3:30 PM [...] side effects. Pharmacy correct. Please call Yamilet Goldman([facility]) [phone] () c vm y S MECHANIC Kiley Ndiaye - 06/25/2012 3:23 PM CST Pt calling to speak to nurse/ about changing control medication due to nausea from existingmedication. S MECHANIC documented in this encounter Plan of Treatment Not on filedocumented as of this encounter Visit Diagnoses Not on filedocumented in this encounter
--- OUTSIDE RECORDS SUMMARY | 2022-01-05 07:59 | XMS_ITS | Encounter Summary ---
:1985 Author Organization [employer] Address [address] [place] [address] Care Team Providers Name Role Phone Unavailable Primary Care Provider Unavailable Reason for Visit Reason Comments Patient Calling Back Encounter Details Date Type Department Care Team Description 10/02/2011 Telephone [facility] Medic[facility] Chanel Herman, Patient Calling Back [address] [place], [place] [id number] [address] [facility] [phone] [place], [place] [address] (Wo rk) Social History [...] - 10/04/2011 8:47 AM CDT LM at [phone] that if pt is having sx of [...] can be used. Please call Yamilet at [phone] for advise and recommendation. Okay to leave [...] what you recommended. She uses [facility] on [address]. Please let her know on her cell phone at [phone].. Kiley Ndiaye - 10/02/2011 11:15 AM CDT t calling to speak to nurse about possible reaction ( pain in legs) to control medication. documented in this encounter Plan of Treatment Not on filedocumented as of this encounter Visit Diagnoses Not on filedocumented in this encounter
--- OUTSIDE RECORDS SUMMARY | 2022-01-05 07:59 | XMS_ITS | Encounter Summary ---
:1985 Author Organization [facility] Address [address] [place] [address] Care Team Providers Name Role Phone Kristine Mendez MD Primary Care Provider Encounter Details Date Type Department Care Team Description 01/01/2014 Imaging [place] [facility] Thyroid mass [address] [place] [address] Social History Tobacco Use Types Packs/Day Years [...] to confirm the nature. Kristine Mendez MD [facility] US documented in this encounter Visit Diagnoses Diagnosis Thyroid mass ([facility]) Unspecified disorder of thyroid documented in this encounter Care Teams [employer] Machine Mechanic Relationship Specialty Start Date End Date Kristine Mendez MD PCP - General 01/01/14 [address] [address] [place] [address] documented as of this encounter
--- OUTSIDE RECORDS SUMMARY | 2022-01-05 07:59 | XMS_ITS | Encounter Summary ---
:1985 Author Organization [facility] Address [address] [place] [address] Care Team Providers Name Role Phone Jeri García MD Primary Care Provider Encounter Details Date Type Department Care Team Description 08/30/2010 PN Conversion Only [facility] Jeri Stack, [address] [place] [address] [address] [phone] [place] [id number] (Wo rk) Social History Tobacco Use Types Packs/Day Years Used Date Smoking Tobacco: Never Alcohol Use Standard Drinks/Week Comments No 0 (1 standard drink = 0.6 oz pure alcoho l) Sex Assigned at Date Recorded Not on file documented as of this encounter Plan of Treatment Not on filedocumented as of this encounter Visit Diagnoses Not on filedocumented in this encounter Care Teams Processing Rep Relationship Specialty Start Date End Date Jeri García MD PCP - General 08/02/10 09/06/11 [place] [address] documented as of this encounter
--- OUTSIDE RECORDS SUMMARY | 2022-01-05 07:59 | XMS_ITS | Encounter Summary ---
:1985 Author Organization [employer] Address [address] [place] [address] Care Team Providers Name Role Phone Unavailable Primary Care Provider Unavailable Reason for Visit Reason Comments Abdominal Pain Encounter Details Date Type Department Care Team Description 07/01/2012 Hospital Encounter [facility] Luann Molina A bdominal pain, unspecified site; Care MD Bacterial vaginosis [address] [address] [phone] Social History Tobacco Use Types Packs/Day Years Used Date Smoking Tobacco: Never Alcohol Use Standard Drinks/Week Comments No 0 (1 standard drink = 0.6 oz pure alcoho l) Sex Assigned at Date Recorded Not on file documented as of this encounter Last Filed Vital Signs Vital Sign Reading Time Taken Comments Blood Pressure 110/74 07/01/2012 8:19 AM WHITE SOURER Pulse 88 07/01/2012 8:19 AM WHITE SOURER Temperature 36.3 ??C (97.3 ??F) 07/01/2012 8:19 AM WHITE SOURER Respiratory Rate 16 07/01/2012 8:19 AM WHITE SOURER Oxygen Saturation - - Inhaled Oxygen Concentration [...] 07/05/12 0755 Note Time: 07/01/121423 Status: Signed Chief Estimator: Luann Molina MD (Physician) NAME: YAMILET LORA MR#: [id number] CSN: [id number] AUTHENTICATING CLINICIAN: Luann Molina MD CONFIRM #: [id number] LOC: 520 URGENT CARE PROGRESS NOTE DATE [...] agreement the plan. DAVID:MEDQ C: CONFIRM #: [id number] E SOURER Luann Molina MD - 07/01/2012 1:18 PM [...] RN Oral - 07/01/12 1119 - - E SOURER documented in this encounter Plan of Treatment Not on filedocumented as of this encounter Procedures Procedure Name Priority Date/Time Associated Diagnosis Comme nts CT ABD PELVIS W IV Routine 07/01/2012 12:47 Abdominal pain, Re sults for this CONT PM WHITE SOURER unspecified site procedure a re in the results section. WET PREP STAT 07/01/2012 11:02 Abdominal pain, Results for this AM WHITE SOURER unspecified site procedure a re in the results section. US PELVIC COMPLETE W Routine 07/01/2012 10:42 Abdominal pain, Results for this EV AM WHITE SOURER unspecified site procedure a re in the results section. COMPLETE BLOOD STAT 07/01/2012 9:16 AM Abdominal pain, Resu lts for this COUNT-W/DIFF WHITE SOURER unspecified site procedure a re in the results section. DIFFERENTIAL STAT 07/01/2012 9:16 AM Results f or this WHITE SOURER procedure are i n the results section. SEXUALLY TRANSMITTED STAT 07/01/2012 9:06 AM Abdominal pain , Results for this DISEASE PROBE WHITE SOURER unspecified site procedure are in the results section. URINE MICROSCOPIC STAT 07/01/2012 9:05 AM Abdominal pain, R esults for this WHITE SOURER unspecified site procedure a re in the results section. URINALYSIS STAT 07/01/2012 9:05 AM Abdominal pain, Result s for this ROUTINE(MICRO IF POS) WHITE SOURER unspecified site pr ocedure are in the results section. TEST STAT 07/01/2012 9:05 AM Abdominal pain, Resu lts for this (URINE) WHITE SOURER unspecified site procedure a re in the results section. documented in this encounter Results CT Abd Pelvis W IV Cont (07/01/2012 12:47 PM WHITE SOURER) Anatomical Region Laterality Modality Abdomen, Pelvis Other Specimen (Source) Anatomical Location Collection Method / Collectio n Time Received Time / Laterality Volume Impressions 07/01/2012 1:03 PM WHITE SOURER IMPRESSION: No evidence for appendicitis, diverticul itis, or bowel obstruction. ?? No specific abnormality to definitely ex plain the patient's symptomatology. Narrative 07/01/2012 1:03 PM WHITE SOURER COMPARISON: ?? None. ?? TECHNIQUE: ??Abdomen and [...] CT (ABNORMAL) WET PREP (07/01/2012 11:02 AM WHITE SOURER) [facility] gist Method Time Signature WETPR White [...] / Volume Laterality 07/01/2012 11:02 07/01/2012 AM WHITE SOURER 11:08 AM WHITE SOURER Narrative HP CONVERSION - 07/01/2012 11:08 AM WHITE SOURER Performed at [facility], [address] [place] [address] Luann Molina MD LAB_1 Performing Organization Address City/State/ZIP Code Phon e Number HP CONVERSION US Pelvic Complete W EV (07/01/2012 10:42 AM WHITE SOURER) Anatomical Region Laterality Modality Pelvis Other Specimen (Source) Anatomical Location Collection Method / Collectio n Time Received Time / Laterality Volume Impressions 07/01/2012 10:52 AM WHITE SOURER IMPRESSION: Normal pelvic ultrasound. Narrative 07/01/2012 10:52 AM WHITE SOURER COMPARISON: ?None. ? FINDINGS: Transabdominal and endovaginal [...] MD RAD US Differential (07/01/2012 9:16 AM WHITE SOURER) athologist Signature Absolute 2.3 1.8 - 8.0 [...] Volume Laterality 07/01/2012 9:16 AM 3 9:16 WHITE SOURER AM WHITE SOURER Narrative HP CONVERSION - 07/01/2012 9:42 AM WHITE SOURER Performed at [facility], [address] [place] [address] Luann Molina MD LAB_1 Performing Organization Address City/State/ZIP Code Phon e Number HP CONVERSION (ABNORMAL) Complete Blood Count W/Diff (07/01/2012 9:16 AM WHITE SOURER) [facility] gist Method Time Signature White Blood [...] Volume Laterality 07/01/2012 9:16 AM 3 9:16 WHITE SOURER AM WHITE SOURER Narrative HP CONVERSION - 07/01/2012 9:42 AM WHITE SOURER Performed at [facility], [address] [place] [address] Luann Molina MD LAB_1 Performing Organization Address [facility] Phon e Number HP CONVERSION Sexually Transmitted Disease Probe (07/01/2012 9:06 AM WHITE SOURER) Component Value Ref Test Analysis Performed At [facility] gist Range Method Time Signature Chlamydia Chlamydia HP CONVERSION Trach DNA trachomatis NEGATIVE by DNA amplification GC DNA Neisseria HP CONVERSION gonorrhea NEGATIVE by DNA amplification. Specimen (Source) Anatomical Collection Method Collection Time Re ceived Time Location / / Volume Laterality Endocervical for 07/01/2012 9:06 molecular testing: AM WHITE SOURER Luann Molina MD LAB_1 Performing Organization Address [facility] Phon e Number HP CONVERSION Test (Urine) (07/01/2012 9:05 AM WHITE SOURER) Analysis Performed At Patho logist Time Signature Urine Negative HP CONVERSION Test Specimen Anatomical Collection Method Collection Time Receive d Time (Source) Location / / Volume Laterality 07/01/2012 9:05 AM 3 9:32 WHITE SOURER AM WHITE SOURER Narrative HP CONVERSION - 07/01/2012 9:38 AM WHITE SOURER Performed at [facility], [address] [place] [address] Luann Molina MD LAB_1 Performing Organization Address [facility] Phon e Number HP CONVERSION (ABNORMAL) URINE MICROSCOPIC (07/01/2012 9:05 AM WHITE SOURER) Patholo gist Method Time Signature Urine WBC [...] Volume Laterality 07/01/2012 9:05 AM 3 9:32 WHITE SOURER AM WHITE SOURER Narrative HP CONVERSION - 07/01/2012 9:44 AM WHITE SOURER Performed at [facility], [address] [place] [address] Luann Molina MD LAB_1 Performing Organization Address [facility] Phon e Number HP CONVERSION (ABNORMAL) URINALYSIS ROUTINE(MICRO IF POS) (07/01/2012 9:05 AM WHITE SOURER) [facility] Method Time Signature Urine Type Urine:clean [...] U Specific 1.020 1.005 - HP CONVERSION [place] 1.030 Urobilinogen Negative Negative HP CONVERSION Urine Eu/dL Specimen Anatomical Collection Method Collection Time Receive d Time (Source) Location / / Volume Laterality Urine: 07/01/2012 9:05 AM 3 9:32 WHITE SOURER AM WHITE SOURER Narrative HP CONVERSION - 07/01/2012 9:44 AM WHITE SOURER Performed at [facility], [address] [place] [address] Luann Molina MD LAB_1 Performing Organization Address [facility] Phon e Number HP CONVERSION documented [...] and tried one pill of new pack. E SOURER documented in this encounter
--- OUTSIDE RECORDS SUMMARY | 2022-01-05 07:59 | XMS_ITS | Encounter Summary ---
:1985 Author Organization [employer] Address [address] [place] [address] Care Team Providers Name Role Phone Jeri García MD Primary Care Provider Encounter Details Date Type Department Care Team Description 07/09/2008 PN Conversion Only [facility] [address] [place] [address] Social History Tobacco Use Types Packs/Day Years Used Date Smoking Tobacco: Never Alcohol Use Standard Drinks/Week Comments No 0 (1 standard drink = 0.6 oz pure alcoho l) Sex Assigned at Date Recorded Not on file documented as of this encounter Plan of Treatment Not on filedocumented as of this encounter Visit Diagnoses Not on filedocumented in this encounter Care Teams Junior Bookkeeper Relationship Specialty Start Date End Date Jeri García MD PCP - General 08/02/10 09/06/11 [address] [place] [id number] documented as of this encounter
--- OUTSIDE RECORDS SUMMARY | 2022-01-05 07:59 | XMS_ITS | Encounter Summary ---
:1985 Author Organization [employer] Address [address] [place] [address] Care Team Providers Name Role Phone Unavailable Primary Care Provider Unavailable Reason for Visit Reason Comments LEG PAIN Encounter Details Date Type Department Care Team Description 10/09/2011 Office Visit [facility] Chanel Herman, Leg pain (Primary Dx) [address] [place] [address] [address] [facility] [phone] [place], [place] [address] (Wo rk) Social History Tobacco Use Types [...]
--- OUTSIDE RECORDS SUMMARY | 2022-01-05 07:59 | XMS_ITS | Encounter Summary ---
:1985 Author Organization [employer] Address [address] [place] [address] Care Team Providers Name Role Phone Unavailable Primary Care Provider Unavailable Reason for Visit Reason Comments INFECTION, URINARY TRACT Encounter Details Date Type Department Care Team Description 07/21/2012 Office Visit [facility] Cystitis (Primary Dx) [address] [place], [place] [address] Social History Tobacco Use [...] encounter Patient Instructions Patient InstructionsNahomi Diane, ASAD, DYNAMOMETER TESTER ENGINE - 07/21/2012 12:38 PM CDT Cystitis You [...] Read and follow all instructions from the security tester before using. In order to keep yourself [...] Component Value Ref Test Analysis Performed At [facility] Range Method Time Signature Specimen Urine [facility] Description Midstream Special Unspecified [facility] Requests Culture > 100,000 [facility] col/ml Escherichia coli Report Status Final [facility] 07/23/2012 Organism > 100,000 [facility]/ml Escherichia coli Specimen Anatomical Collection Method [...] CNP LAB_1 Performing Organization Address City/State/ZIP Code [facility] e Number [facility] [phone] [address] documented in this encounter Visit Diagnoses Diagnosis Cystitis - Primary Cystitis, unspecified documented in this encounter
--- OUTSIDE RECORDS SUMMARY | 2022-01-05 07:59 | XMS_ITS | Encounter Summary ---
:1985 Author Organization [facility] Address [address] [place] [address] Care Team Providers Name Role Phone Unavailable Primary Care Provider Unavailable Encounter Details Date Type Department Care Team Description 10/02/2011 Notes/Orders [place] [facility] Angeles Beltran [facility] [place] [address] Social History Tobacco Use Types Packs/Day Years [...]
--- OUTSIDE RECORDS SUMMARY | 2022-01-05 07:59 | XMS_ITS | Encounter Summary ---
:1985 Author [facility] Address [address] [place] [address] Care Team Providers Name Role Phone Unavailable Primary Care Provider Unavailable Encounter Details Date Type Department Care Team Description 06/26/2012 Lab Visit [facility] Abdominal pain [address] [place] [id number] Social History Tobacco Use Types Packs/Day Years [...] 06/26/2012 11:33 Result s for this AM HUMIDIFIER ATTENDANT procedure are i n the results section. URINALYSIS ROUTINE, Routine 06/26/2012 11:33 Abdominal pain Re sults for this MICRO/CULTURE IF POS AM HUMIDIFIER ATTENDANT procedu re are in the results section. SEXUALLY TRANSMITTED Routine 06/26/2012 11:33 Abdominal pain R esults for this DISEASE PROBE AM HUMIDIFIER ATTENDANT procedure are in the results section. URINE CULTURE Routine 06/26/2012 11:33 Results fo r this AM HUMIDIFIER ATTENDANT procedure are i n the results section. TEST Routine 06/26/2012 11:33 Abdominal pain Results for this (URINE) AM HUMIDIFIER ATTENDANT procedure are i n the results section. documented in this encounter Results Sexually Transmitted Disease Probe (06/26/2012 11:33 AM HUMIDIFIER ATTENDANT) Component Value Ref Test Analysis Performed At [facility] Range Method Time Signature Chlamydia Chlamydia HP CONVERSION Trach DNA trachomatis NEGATIVE by DNA amplification GC DNA Neisseria HP CONVERSION gonorrhea NEGATIVE by DNA amplification. Specimen (Source) Anatomical Collection Method Collection Time Re ceived Time Location / / Volume Laterality Urine for 06/26/2012 11:33 molecular AM HUMIDIFIER ATTENDANT testing: Rico Hester PA-C LAB_1 Performing Organization Address [facility] Phon e Number HP CONVERSION Urine Culture (06/26/2012 11:33 AM HUMIDIFIER ATTENDANT) Patholo gist Method Time Signature Urine Culture Mixed gram HP CONVERSION positive & negative organisms. <10,000 cfu/mL Specimen (Source) Anatomical Collection Method Collection Time Re ceived Time Location / / Volume Laterality Urine: 06/26/2012 11:33 AM HUMIDIFIER ATTENDANT Rico Hester PA-C LAB_1 Performing Organization Address [facility] Code Phon e Number HP CONVERSION (ABNORMAL) URINE MICROSCOPIC (06/26/2012 11:33 AM HUMIDIFIER ATTENDANT) Patholo gist Method Time Signature Urine WBC [...] / Volume Laterality 06/26/2012 11:33 06/26/2012 AM HUMIDIFIER ATTENDANT 11:33 AM HUMIDIFIER ATTENDANT Narrative HP CONVERSION - 06/26/2012 11:49 AM HUMIDIFIER ATTENDANT [place] [address] Rico Hester PA-C LAB_1 Performing Organization Address [facility] Phon e Number HP CONVERSION Test (Urine) (06/26/2012 11:33 AM HUMIDIFIER ATTENDANT) Analysis Performed At Patho logist Time Signature Urine Negative HP CONVERSION Test Specimen Anatomical Collection Method Collection Time Receive d Time (Source) Location / / Volume Laterality 06/26/2012 11:33 06/26/2012 AM HUMIDIFIER ATTENDANT 11:33 AM HUMIDIFIER ATTENDANT Narrative HP CONVERSION - 06/26/2012 11:42 AM HUMIDIFIER ATTENDANT Performed at [place] [id number] Rico J Kacie PA-C LAB_1 Performing Organization Address City/[facility]/ZIP Code Phon e Number HP CONVERSION (ABNORMAL) URINALYSIS ROUTINE, MICRO/CULTURE IF POS (06/26/2012 11:33 AM HUMIDIFIER ATTENDANT) [facility] Method Time Signature Urine Type Urine:clean [...] U Specific <=1.005 1.005 - HP CONVERSION [place] 1.030 Urobilinogen Negative Negative HP CONVERSION Urine Eu/dL Specimen Anatomical Collection Method Collection Time Receive d Time (Source) Location / / Volume Laterality Urine: 06/26/2012 11:33 06/26/2012 AM HUMIDIFIER ATTENDANT 11:33 AM HUMIDIFIER ATTENDANT Narrative HP CONVERSION - 06/26/2012 11:49 AM HUMIDIFIER ATTENDANT Performed at [facility]3], [address] [place] [address] Rico Hester PA-C LAB_1 Performing Organization Address City/[facility] Code Phon e Number HP CONVERSION documented in this encounter Visit Diagnoses Diagnosis Abdominal pain documented in this encounter
--- OUTSIDE RECORDS SUMMARY | 2022-01-05 07:59 | XMS_ITS | Encounter Summary ---
:1985 Author Organization [employer] [facility] Address [address] [place] [address] Care Team Providers Name Role Phone Jeri García MD Primary Care Provider Encounter Details Date Type Department Care Team Description 07/09/2008 PN Conversion Only [facility] Lidia Aquino APRN, [address] [place] [address] [facility] [place], [place] [address] (Wo rk) Social History [...] Comment: Patient: YAMILET DAILY Culture, Stool ?Collected: ??[id number] ??[id number] Source: Stool ? Processed: ?2055 ? SENS Final Report ------ ?[id number] ??[id number] No Salmonella, Shigella, Campylobacter o r E coli O157 isolated Culture screened for Aeromonas, Plesiomo hung and Vibrio with negative results. If Yersinia is suspected, please submit a second culture and request for this organism. Specimen (Source) Anatomical Collection Method Collection Time Re ceived Time Location / / Volume Laterality 07/09/2008 4:36 PM CDT Lidia Aquino APRNNAWAF LAB_1 Performing Organization Address City/[facility] Code Phon e Number HP CONVERSION Mononucleosis Screen (07/09/2008 2:50 PM CDT) Wattage Method Time Signature Infectious Negative Negative HP CONVERSION Mononucleosis Screen Specimen (Source) Anatomical Collection Method Collection Time Re ceived Time Location / / Volume Laterality 07/09/2008 2:50 PM CDT Lidia Aquino APRNNAWAF LAB_1 Performing Organization Address [facility] Code Phon e Number HP CONVERSION (ABNORMAL) Complete Blood Count-W/Diff (07/09/2008 2:50 PM CDT) Wattage Method Time Signature White Blood Cell 5.4 [...] - HP CONVERSION Hemoglobin Conc 36.5 gm/dL Dickson RDW 12.3 11.0 - HP CONVERSION 15.0 [...] Aquino NAWAF KAMARA LAB_1 Performing Organization Address [facility] Phon e Number HP CONVERSION Creatinine / GFR (07/09/2008 2:50 PM CDT) athologist Signature Creatinine 0.9 0.4 - 1.3 HP CONVERSION Serum mg/dL Est GFR >60 >60 HP CONVERSION Am Comment: -Ethiopian and Sqs-Aydenqc-Nzlplss n reference range units: mL/min/1.73m2 Normal>60, moderate [...] Kenia KAMARA CNP LAB_1 Performing Organization Address [facility] Phon e Number HP [...] Kenia KAMARA CNP LAB_1 Performing Organization Address [facility] Phon e Number HP CONVERSION Parvovirus B19 [...] of specific IgM antibodi es. Performed at [facility] [address] [place] [address] Specimen (Source) Anatomical Collection Method Collection Time Re ceived Time Location / / Volume Laterality 07/09/2008 2:50 PM CDT Lidia Aquino APRN, CNP LAB_1 Performing Organization Address [facility] Phon e Number HP CONVERSION Hepatitis B Surface Antibody (07/09/2008 2:50 PM CDT) Analysis Performed At Patho logist Time Signature Hep B Surf Ab Non Reac Non Reac HP CONVERSION Specimen (Source) Anatomical Collection Method Collection Time Re ceived Time Location / / Volume Laterality 07/09/2008 2:50 PM CDT Lidia Aquino APRN, CNP LAB_1 Performing Organization Address [facility] Phon e Number HP CONVERSION Hep B Surface Antigen, No Reflex (07/09/2008 2:50 PM CDT) Analysis Performed At [facility] Time [facility] Hep B Surf Ag Negative Negative HP CONVERSION Specimen (Source) Anatomical Collection Method Collection Time Re ceived Time Location / / Volume Laterality 07/09/2008 2:50 PM CDT Lidia Kenia KAMARA CNP LAB_1 Performing Organization Address [facility] Phon e Number HP CONVERSION Urine Culture (07/09/2008 2:32 PM CDT) Analysis Performed At [facility] Time [facility] Urine Culture SEE TEXT HP CONVERSION Comment: Patient: YAMILET DAILY Culture, Urine ?Collected: ??[id number] ??[id number] Source: Clean Ca ?Processed: ??[id number] ??[id number] ? 1V Final Report ------ ?[id number] ??[id number] <10,000 CFU/mL gram negative andrez No further workup Specimen (Source) Anatomical Collection Method Collection Time Re ceived Time Location / / Volume Laterality 07/09/2008 2:32 PM CDT Lidia Kenia KAMARA CNP LAB_1 Performing Organization Address [facility] Phon e Number HP CONVERSION (ABNORMAL) Urinalysis Routine(Micro If Pos) (07/09/2008 2:32 PM CDT) [facility] Method Time Signature Turbidity Clear No [...] Specific 1.015 1.005 - 25 HP CONVERSION [place] Specimen (Source) Anatomical Collection Method Collection Time Re ceived Time Location / / Volume Laterality 07/09/2008 2:32 PM CDT Lidia Aquino APRN, CNP LAB_1 Performing Organization Address City/[facility]/ZIP Code Phon e Number HP CONVERSION (ABNORMAL) Urinalysis Microscopic (07/09/2008 2:32 PM CDT) [facility] Method Time Signature White Blood 0-2/HPF [...] filedocumented in this encounter Care Teams Quality Assurance Representative Relationship Specialty Start Date End Date Jeri García MD PCP - General 08/02/10 09/06/11 [address], [place] [address] documented as of this encounter
--- OUTSIDE RECORDS SUMMARY | 2022-01-05 07:59 | XMS_ITS | Encounter Summary ---
:1985 Author Organization [facility] Address [address] [place] [address] Care Team Providers Name Role Phone Jeri García MD Primary Care Provider Encounter Details Date Type Department Care Team Description 12/27/2005 Office Visit [facility] [address] Twila Collier MD Dermatology [address] [facility] [address] [facility] [place] [address] [place], [place] [address] [phone] Social History Tobacco Use Types Packs/Day Years Used Date Smoking Tobacco: Never Assessed Sex Assigned at Date Recorded Not on file documented as of this encounter Progress Notes Twila Collier MD - 12/27/2005 12:01 AM CDT Progress Notes signed by Twila Collier MD at 01/23/067 Author: Twila Collier MD Service: (none) Author Type: Physician Filed: 08/19/10 1521 Note Time: 12/27/05 0001 Status: Signed Supervisor Food Checkers And Cashiers: Twila Collier MD (Physician) NAME: YAMILET DAILY MR: [id number] ACCT: [id number] VISIT: [id number] DICTATING CLINICIAN: TWILA COLLIER MD JOB: [id number] LOC: 427 CLINIC PROGRESS NOTE DATE OF [...] She can try to wean off ?. [facility]:[id number] C: 01/03/06 07:03 DOCUMENT: [id number] documented in this encounter Plan of Treatment Not on filedocumented as of this encounter Visit Diagnoses Not on filedocumented in this encounter Care Teams Crusher Tender Relationship Specialty Start Date End Date Jeri García MD PCP - General 08/02/10 09/06/11 [address] [place] [address] documented as of this encounter
--- OUTSIDE RECORDS SUMMARY | 2022-01-05 07:59 | XMS_ITS | Encounter Summary ---
:1985 Author Organization [employer] Address [address] [place] [address] Care Team Providers Name Role Phone Unassigned, Provider Primary Care Provider Unavailable Reason for Visit Reason Comments SORE THROAT,NURSE Encounter Details Date Type Department Care Team Description 12/13/2006 Office Visit [facility] Acute P haryngitis (Primary Department Dx) [address] [place], [place] [address] Social History Tobacco Use [...] symptoms or history includes: NONE Phone number: [phone] (home) [phone] (work), alternate number . A: Sore Throat [...] SCREEN (WAITI [[id number]] (12/13/2006 1:59 PM CDT) [facility] Method Time Signature Patient Home None [facility] Phone # Patient Work None [facility] Phone # Grp A Rapid Negative [facility] Screen Grp A Culture Negative [facility] Final Specimen Anatomical Collection Method Collection Time Receive d Time (Source) Location / / Volume Laterality 12/13/2006 1:59 PM 7 2:00 CDT PM CDT Myrna Torres MD LAB_1 Performing Organization Address City/State/ZIP Code Phon e Number [facility] [phone] [facility] [address] [place] [phone] documented in this encounter Visit Diagnoses Diagnosis Acute pharyngitis - Primary documented in this encounter Care Teams Rn Icu Relationship Specialty Start Date End Date Unassigned, Provider PCP - General 01/31/00 08/01/10 [address] [place] [address] documented as of this encounter
--- OUTSIDE RECORDS SUMMARY | 2022-01-05 07:59 | XMS_ITS | Encounter Summary ---
:1985 Author Organization [employer] Address [address] [place] [address] Care Team Providers Name Role Phone Unassigned, Provider Primary Care Provider Unavailable Reason for Visit Reason Comments CONGESTION Encounter Details Date Type Department Care Team Description 06/27/2008 Office Visit [facility] [place] (Primary Dx); [place] Ph[facility]itis [address] [place], [place] [address] Social History Tobacco Use Types Packs/Day Years Used Date Smoking Tobacco: Never Alcohol Use Standard Drinks/Week Comments No 0 (1 standard drink = 0.6 oz pure alcoho l) Sex Assigned at Date Recorded Not on file documented as of this encounter Last Filed Vital Signs Vital Sign Reading Time Taken Comments Blood Pressure 120/80 06/27/2008 2:20 PM OIL DISPENSER Pulse 78 06/27/2008 2:15 PM OIL DISPENSER Temperature 36.6 ??C (97.8 ??F) 06/27/2008 2:15 PM OIL DISPENSER Respiratory Rate 18 06/27/2008 2:15 PM OIL DISPENSER Oxygen Saturation - - Inhaled Oxygen Concentration - - Weight 54.4 kg (120 lb) 06/27/2008 2:15 PM OIL DISPENSER Height 176.5 cm (5' 9.5) 06/27/2008 2:15 PM OIL DISPENSER Body Mass Index 17.47 06/27/2008 2:15 PM OIL DISPENSER documented in this encounter Progress Notes Halima Jimenez - 06/27/2008 2:54 PM CST This office note has been dictated. Halima Jimenez MD DISPENSER Halima Jimenez - 06/27/2008 12:00 AM OIL DISPENSER Chief Complaint: Congestion. Subjective: Patient is a [...] a Mucinex with a cough suppressant. Objective: Kdghdj-vdrh-mxvq-old female who is awake, cooperative. She is [...] pharyngitis. Plan: Recommend the patient continue using lhum-ktg-zanjjto medications, get lots of rest, take some fluids. If her throat culture is positive, will notify her and start her on antibiotic. At this time, I think it is more viral and if she has increasing symptoms, she can follow up with the primary doctor. P / A [facility] cc: DISPENSER documented in this encounter Plan of Treatment Not on filedocumented as of this encounter Procedures Procedure Name Priority Date/Time Associated Diagnosis Comme nts STREP GRP A, RAPID Waiting 06/27/2008 2:21 PM Pharyngitis Res ults for this SCREEN OIL DISPENSER procedure are i n the results section. documented in this encounter Results STREP GRP A, RAPID SCREEN (06/27/2008 2:21 PM OIL DISPENSER) [facility] Method Time Signature Grp A Rapid Negative [facility] Screen Grp A Culture Negative [facility] Final Specimen Anatomical Collection Method Collection Time Receive d Time (Source) Location / / Volume Laterality 06/27/2008 2:21 PM 200 9 2:30 OIL DISPENSER PM OIL DISPENSER Halima Jimenez MD LAB_1 Performing Organization Address City/State/ZIP Code Phon e Number [facility] [phone] [facility] [address] [phone] documented in this encounter Visit Diagnoses Diagnosis Acute URI - Primary Acute upper respiratory infections of un specified site Pharyngitis Acute pharyngitis documented in this encounter Care Teams Waist Fitter Relationship Specialty Start Date End Date Unassigned, Provider PCP - General 01/31/00 08/01/10 [address] [place] [address] documented as of this encounter
--- OUTSIDE RECORDS SUMMARY | 2022-01-05 07:59 | XMS_ITS | Encounter Summary ---
:1985 Author Organization [employer] Address [address] [place] [address] Care Team Providers Name Role Phone Jeri García MD Primary Care Provider Reason for Visit Reason Comments Other Encounter Details Date Type Department Care Team Description 07/10/2008 Telephone [facility] Jannet Kaiser, Other [address] [place] [address] Social History Tobacco Use Types Packs/Day Years Used Date Smoking Tobacco: Never Alcohol Use Standard Drinks/Week Comments No 0 (1 standard drink = 0.6 oz pure alcoho l) Sex Assigned at Date Recorded Not on file documented as of this encounter Progress Notes Center, Message - 07/10/2008 8:02 AM CDT Phone Note filed by [employer] at 08/18/101941 Author: [employer] Service: (none) Author Type: (none) Filed: 08/18/101941 Note Time: 07/10/08801 Status: Signed Prison Keeper: [employer] (Resource) Xray Chest * PA And Left Lateral (Standard)results are now available in LastWord. Created on 10Jul2008 8:02am by ROJELIO ADKINS Acknowledged by OLEG RAMIREZ on 10:15am On 14Jul2008 1:21pm JANNET KAISER wrote: Noted. Acknowledged by JANNET KAISER on 1:21pm STANT PROFESSOR OF BUSINESS documented in this encounter Plan of Treatment Not on filedocumented as of this encounter Visit Diagnoses Not on filedocumented in this encounter Care Teams Inbound Ingredient Logistics Specialist Relationship Specialty Start Date End Date Jeri García MD PCP - General 08/02/10 09/06/11 [address] [place] [address] documented as of this encounter
--- OUTSIDE RECORDS SUMMARY | 2022-01-05 07:59 | XMS_ITS | Encounter Summary ---
:1985 Author Organization [facility] Address [address] [place] [address] Care Team Providers Name Role Phone Unavailable Primary Care Provider Unavailable Reason for Visit Reason Comments Refill Encounter Details Date Type Department Care Team Description 12/10/2011 Refill [facility] Chanel Mix PA-C Refill [address] [facility] [address] [place] [address] [phone] (Wo rk) Social History Tobacco Use Types [...]
--- OUTSIDE RECORDS SUMMARY | 2022-01-05 08:00 | XMS_ITS | Encounter Summary ---
:1985 Author Organization [facility] Address [address] [place] [address] Care Team Providers Name Role Phone Megan García MD Primary Care Provider Reason for Visit Reason Comments Other Encounter Details Date Type Department Care Team Description 11/03/2004 Telephone [facility] [employer] [place], Message Other [address] [place] [address] Social History Tobacco Use Types Packs/Day Years Used Date Smoking Tobacco: Never Assessed Sex Assigned at Date Recorded Not on file documented as of this encounter Progress Notes Khushi Gibson - 11/03/2004 10:31 AM CDT Phone Note filed by Khushi Gibson RN at 08/15/101912 Author: Khushi Gibson RN Service: (none) Author Type: (none) Filed: 08/15/101912 Note Time: 11/03/04 1031 Status: Signed Loading Manager: Khushi Gibson RN (Registered Nurse) Pt [...] helped. Let pt know your recommendations at [phone]. Pharm is [facility] in [place] [phone]. Created on 03Nov2004 10:31am by KHUSHI GIBSON On 03Nov2004 12:35pm MEGAN GARCÍA wrote: we could try doxycyline instead, 100 mg dialy #30, 5 refills, to see if it works as well but without the discoloration. Acknowledged by MEGAN GARCÍA on 12:35pm On 03Nov2004 1:23pm BOBBY CENTENO wrote: Rx called in as above, and left message on pt voice mail. NG CONSULTANT documented in this encounter Plan of Treatment Not on filedocumented as of this encounter Visit Diagnoses Not on filedocumented in this encounter Care Teams Bar Helper Relationship Specialty Start Date End Date Megan García MD PCP - General 08/02/10 09/06/11 [address] [place] [address] documented as of this encounter
--- OUTSIDE RECORDS SUMMARY | 2022-01-05 08:00 | XMS_ITS | Encounter Summary ---
:1985 Author [facility] Address [address] [place] [address] Care Team Providers Name Role Phone Jeri García MD Primary Care Provider Reason for Visit Reason Comments Other Encounter Details Date Type Department Care Team Description 03/01/2005 Telephone [facility], Message Other [address] [place] [address] Social History Tobacco Use Types Packs/Day Years Used Date Smoking Tobacco: Never Assessed Sex Assigned at Date Recorded Not on file documented as of this encounter Progress Notes Center, Message - 03/01/2005 3:45 PM CST Phone Note filed by [employer] at 08/15/102200 Author: [employer] Service: (none) Author Type: (none) Filed: 08/15/102200 Note Time: 03/01/051544 Status: Signed 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 Pt is requesting a call-back either way to let her know if this can be done. CALL BACK PHONE #: [phone], cell BEST TIME TO CALL BACK: anytime Is it OK to leave detailed message on voicemail? yes Created on [id number] 3:45pm by PAULA VILLALTA On [id number] 4:09pm XAVIER HASKINS wrote: Referral for what condition? Acknowledged by XAVIER HASKINS on 2Nov 4:09pm On [id number] 4:17pm APRIL HOLLIDAY wrote: Pt would like to see Dermatology regarding ongoing acne. On [id number] 4:37pm XAVIER HASKINS wrote: OK to see [facility] for acne Acknowledged by XAVIER HASKINS on 2Nov05 4:37pm On [id number] 4:46pm RADHA PIRES wrote: Pt notified and will make appointment with derm. TECHNICIAN documented in this encounter Plan of Treatment Not on filedocumented as of this encounter Visit Diagnoses Not on filedocumented in this encounter Care Teams Outside Plant Supervisor Relationship Specialty Start Date End Date Jeri García MD PCP - General 08/02/10 09/06/[address] [place] [address] documented as of this encounter
--- OUTSIDE RECORDS SUMMARY | 2022-01-05 08:00 | XMS_ITS | Encounter Summary ---
:1985 Author Organization [facility] Address [address] [place] [address] Care Team Providers Name Role Phone Jeri García MD Primary Care Provider Encounter Details Date Type Department Care Team Description 12/26/2005 PN Conversion Only [facility] [address] [address] [address] [place] [address] Social History Tobacco Use Types Packs/Day Years Used Date Smoking Tobacco: Never Assessed Sex Assigned at Date Recorded Not on file documented as of this encounter Plan of Treatment Not on filedocumented as of this encounter Visit Diagnoses Not on filedocumented in this encounter Care Teams Electrician Ship Relationship Specialty Start Date End Date Jeri García MD PCP - General 08/02/10 09/06/11 [address] [place] [id number] documented as of this encounter
--- OUTSIDE RECORDS SUMMARY | 2022-01-05 08:00 | XMS_ITS | Encounter Summary ---
:1985 Author Organization [facility] Address [address] [place] [address] Care Team Providers Name Role Phone Jeri García MD Primary Care Provider Reason for Visit Reason Comments Other Encounter Details Date Type Department Care Team Description 04/26/2005 Telephone [facility] [address] [facility], Message Other [address] [place], [place] [address] Social History Tobacco Use Types Packs/Day Years Used Date Smoking Tobacco: Never Assessed Sex Assigned at Date Recorded Not on file documented as of this encounter Progress Notes Conversion, [facility] - 04/26/2005 11:49 AM CST Phone Note filed by [facility] Conversion at 08/15/102329 Author: [facility] Conversion Service: (none) Author Type: (none) Filed: 08/15/102329 Note Time: 04/26/05 1149 Status: Signed Plywood Patcher: Imr Conversion Benzaclin not covered per pt..can you try a P.A? Has HP..uses [facility] in [facility] [phone] Created on 26Apr2005 11:49am by ABAD CHRISTINA On 26Apr2005 12:54pm GERARDO COLLIER wrote: Deep available? Acknowledged by GERARDO COLLIER on 12:54pm On 26Apr2005 3:01pm JACKELYN FERMIN wrote: going to send prior auth for Benzaclin. Acknowledged by JACKELYN FERMIN on 3:01pm Acknowledged by ABAD CHRISTINA on 3:39pm On 24Aug2005 9:12am PRABHJOT VARGAS wrote: Prior auth for Benzaclin was denied. ER/DRIVER documented in this encounter Plan of Treatment Not on filedocumented as of this encounter Visit Diagnoses Not on filedocumented in this encounter Care Teams Credit Advisor Relationship Specialty Start Date End Date Jeri García MD PCP - General 08/02/10 09/06/[address] [place] [address] [address] documented as of this encounter
--- OUTSIDE RECORDS SUMMARY | 2022-01-05 08:00 | XMS_ITS | Encounter Summary ---
:1985 Author Organization [facility] Address [address] [place] [address] Care Team Providers Name Role Phone Jeri García MD Primary Care Provider Encounter Details Date Type Department Care Team Description 01/08/2003 PN Conversion Only OZZIE CONVERSION eJri García, [address] [place] [address] [address] [place] [address] (Wo rk) Social History Tobacco Use [...] Patient: YAMILET DAILY Culture, Urine @ ?Collected: ??[id number] ??1412 Source: Clean Ca ?Processed: ??[id number] ??1412 ? G SENS Final Report ------ ?[id number] ??1332 No growth @ = URINE CULTURE Performed at ??[address] [place], [place] ?[address] Specimen (Source) Anatomical Collection Method Collection Time Re ceived Time Location / / Volume Laterality 01/08/2003 2:12 PM CDT Jeri García MD LAB_1 Performing Organization Address City/State/ZIP Code Phon e Number [facility] CONVERSION (ABNORMAL) Urinalysis Complete (01/08/2003 1:59 PM CDT) [facility] gist Method Time Signature Glucose, Negative Neg-Trac HP CONVERSION Qualitative U Protein Urine Negative Neg-Trac HP CONVERSION Ketones Negative Negative [facility] CONVERSION U BILI Negative Negative [facility] CONVERSION U Specific <=1.005 1.005 - 25 [facility] CONVERSION Ethel Blood Urine Moderate Negative HP CONVERSION (A) [...] on filedocumented in this encounter Care Teams Bonsai Culturist Relationship Specialty Start Date End Date Jeri García MD PCP - General 08/02/10 09/06/11 [address] [place], [place] [address] documented as of this encounter
--- OUTSIDE RECORDS SUMMARY | 2022-01-05 08:00 | XMS_ITS | Encounter Summary ---
:1985 Author Organization [facility] Address [address] [place] [address] Care Team Providers Name Role Phone Jeri García MD Primary Care Provider Encounter Details Date Type Department Care Team Description 04/19/2005 Office Visit [facility] [address] Twila Collier MD Dermatology [address] [facility] [address] [facility] [place] [address] [place], [place] [address] [phone] Social History Tobacco Use Types Packs/Day Years [...] 1020 Note Time: 04/19/05 0001 Status: Signed Rotor Assembler: Twila Collier MD (Physician) NAME: YAMILET DAILY MR: [id number] ACCT: [id number] VISIT: [id number] DICTATING CLINICIAN: TWIAL COLLIER MD JOB: [id number] CLINIC PROGRESS NOTE DATE OF VISIT: 04/19/2005 [...] a half months. CC: MARIANO BRAUN PA-C [id number] C: 04/19/05 13:44 DOCUMENT: [id number] MECHANIC documented in this encounter Plan of Treatment Not on filedocumented as of this encounter Visit Diagnoses Not on filedocumented in this encounter Care Teams Video Technician Relationship Specialty Start Date End Date Jeri García MD PCP - General 08/02/10 09/[address] [place] [address] documented as of this encounter
--- OUTSIDE RECORDS SUMMARY | 2022-01-05 08:00 | XMS_ITS | Encounter Summary ---
:1985 Author Organization [facility] Address [address] [place] [address] Care Team Providers Name Role Phone Jeri García MD Primary Care Provider Encounter Details Date Type Department Care Team Description 01/08/2003 PN Conversion Only [facility] CONVERSION [address] [place] [address] Social History Tobacco Use Types Packs/Day Years [...] 1231 Note Time: 03/09/03 0001 Status: Signed Flooring Sales Manager: Clinician Phone Note (Resource) TO: JERI GARCÍA FROM: JUAN PALMA RN [phone] * PROVIDER MESSAGE: ROUTINE * 03/09/03 01:36PM * *WITHIN 4 HOURS * MESSAGE: Mom calling. Pt. is studying * HOME PHONE:[phone] * in [facility], will be there another * CONTACT PHONE:[phone] * 6 wks . Her IBS has been under good * Genesis * control with Bentyl, there were no * PHARMACY: [phone] * refills from 01/14 phone note order. [...] CALL BY JUAN PALMA RN 03/09/2003 01:34PM [phone] ADDENDUM: <> 03/09/2003 02:25PM by RHONDA HYMAN BASE REMOVER: Per Dr. García rx. for Bentyl 10mgs sig 1 tab po qid prn #100 with 1 refill called to pharmacy. ER HELPER Phone Note, Clinician - 01/16/2003 12:01 AM CDT Phone Note filed by Clinician Phone Note at 08/16/10 2379 Author: Clinician Phone Note Service: (none) Author Type: Resource Filed: 08/16/10 1208 Note Time: 01/16/03 0001 Status: Signed Flooring Sales Manager: Clinician Phone Note (Resource) TO: JERI GARCÍA FROM: ROYA GILES [id number] * PROVIDER MESSAGE: ROUTINE * 01/16/03 10:02AM * *WITHIN 4 HOURS * MESSAGE: Yamilet is calling * HOME PHONE:[phone] * requesting her ultra sound results * CONTACT PHONE:[phone] * she had that done on [place]. Please call her at [phone] SUBJECTIVE: ALLERGIES/SENSITIVITIES... nkda 01/12/03 not verified 01/16/03 CURRENT MEDICATIONS... Cipro 01/12/03 not verified 01/16/03 PERTINENT PAST HISTORY... n01/12/03 not verified 01/16/03 WEIGHT: OMITTED ASKING ABOUT . OMITTED ASKING ABOUT NURSING. ASSESSMENT: PLAN: DISPOSITION: NO DISPOSITION GIVEN CALL BY ROYA GILES 01/16/2003 10:01AM [id number] ADDENDUM: <> 01/16/2003 01:36PM by JERI CORTES BASE REMOVER: Alex Quintana, normal kidney U/S. Msg lft at contact # with this info. ER HELPER Phone Note, Clinician - 01/14/2003 12:01 AM CDT Phone Note filed by Clinician Phone Note at 08/16/10 1207 Author: Clinician Phone Note Service: (none) Author Type: Resource Filed: 08/16/10 1203 Note Time: 01/14/03 0001 Status: Signed Flooring Sales Manager: Clinician Phone Note (Resource) TO: JERI GARCÍA FROM: ROYA GILES [id number] * PROVIDER MESSAGE: ROUTINE * 01/14/03 08:13AM * *WITHIN 4 HOURS * MESSAGE: Yamilet is still having * HOME PHONE:[phone] * pain even with the medication that * CONTACT PHONE:[phone] * she was given , her mom is wondering if there is anything else she can be taking. Please call her at [phone] SUBJECTIVE: ALLERGIES/SENSITIVITIES... nkda 01/12/03 not verified 01/14/03 CURRENT MEDICATIONS... Cipro 01/12/03 not verified 01/14/03 PERTINENT PAST HISTORY... n01/12/03 not verified 01/14/03 WEIGHT: OMITTED ASKING ABOUT . OMITTED ASKING ABOUT NURSING. ASSESSMENT: PLAN: DISPOSITION: NO DISPOSITION GIVEN CALL BY ROYA GILES 01/14/2003 08:11AM [id number] ADDENDUM: <> 01/14/2003 02:02PM by RHONDA HYMAN BASE REMOVER: Per Dr. García rx for Bentyl 10mgs [...] for results to be given to Mom. ER HELPER Phone Note, Clinician - 01/12/2003 12:01 AM CDT Phone Note filed by Clinician Phone Note at 08/16/10 1206 Author: Clinician Phone Note Service: (none) Author Type: Resource Filed: 08/16/10 1206 Note Time: 01/12/03 0001 Status: Signed Flooring Sales Manager: Clinician Phone Note (Resource) TO: JERI GARCÍA FROM: JUAN PALMA RN [phone] * PROVIDER MESSAGE: ROUTINE * 01/12/03 11:10AM * *WITHIN 4 HOURS * MESSAGE: Pt. was seen 01/08. She was * HOME PHONE:[phone] * started on Cipro for UTI. Pain is * CONTACT PHONE:[phone] * improving but c/o stomach ache. Is * PHARMACY: [phone] * taking abx. with food. Would like * [place] [facility] * CT results from 01/09. SUBJECTIVE: ALLERGIES/SENSITIVITIES... nkda 01/12/03 CURRENT MEDICATIONS... Cipro 01/12/03 PERTINENT PAST HISTORY... 01/12/03 WEIGHT: OMITTED ASKING ABOUT . OMITTED ASKING ABOUT NURSING. ASSESSMENT: CT results PLAN: DISPOSITION: NO DISPOSITION GIVEN CALL BY JUAN PALMA RN 01/12/2003 11:09AM [phone] ADDENDUM: <> 01/12/2003 01:37PM by STAN CHAVEZ: Ok per Dr. García to schedule pt. for a R Kidney US for area of decreased perfusion seen on R lower pole of CT. Scheduled and notified. ER HELPER documented in this encounter Plan of Treatment [...] normal appearing kidneys. ? ?See above discussion. [id number]/[facility] Dictating BRITTANY MONTEIRO RADIOLOGIST Narrative 01/15/2003 [...] normal appearing kidneys. S ee above discussion. [id number]/[facility] Dictating BRITTANY MONTEIRO RADIOLOGIST Jeri García [...] amount of free fluid within the pelvis. tss/[id number] Dictating AZEEM RITCHIE RADIOLOGIST Procedure Note Azeem [...] amount of free fluid within the pelvis. tss/[id number] Dictating AZEEM RITCHIE RADIOLOGIST Jeri García MD [...] ultrasound may be useful in further evaluation. CA rlr [id number] Dictating AZEEM RITCHIE RADIOLOGIST Procedure Note Azeem [...] ultrasound may be useful in further evaluation. CA rlr [id number] Dictating AZEEM RITCHIE RADIOLOGIST Jeri García MD RAD CT documented in this encounter Visit Diagnoses Not on filedocumented in this encounter Care Teams Industrial Production Manager Relationship Specialty Start Date End Date Jeri García MD PCP - General 08/02/10 09/06/11 [address] [place] [address] documented as of this encounter
--- OUTSIDE RECORDS SUMMARY | 2022-01-05 08:00 | XMS_ITS | Encounter Summary ---
:1985 Author Organization [facility] Address [address] [place] [address] Care Team Providers Name Role Phone Jeri García MD Primary Care Provider Encounter Details Date Type Department Care Team Description 03/18/2003 PN Conversion Only OZZIE CONVERSION [address] [place] [address] Social History Tobacco Use Types Packs/Day Years Used Date Smoking Tobacco: Never Assessed Sex Assigned at Date Recorded Not on file documented as of this encounter Plan of Treatment Not on filedocumented as of this encounter Visit Diagnoses Not on filedocumented in this encounter Care Teams Sheeter Waxer Operator Relationship Specialty Start Date End Date Jeri García MD PCP - General 08/02/10 09/06/[address] [id number] documented as of this encounter
--- OUTSIDE RECORDS SUMMARY | 2022-01-05 08:00 | XMS_ITS | Encounter Summary ---
:1985 Author Organization [facility] Address [address] [place] [address] Care Team Providers Name Role Phone Jeri García MD Primary Care Provider Encounter Details Date Type Department Care Team Description 05/23/2004 PN Conversion Only [place] CONVERSION Jeri García, [address] [place] [address] [address] [place], [place] [id number] (Wo rk) Social History Tobacco Use Types Packs/Day Years Used Date Smoking Tobacco: Never Assessed Sex Assigned at Date Recorded Not on file documented as of this encounter Plan of Treatment Not on filedocumented as of this encounter Procedures Procedure Name Priority Date/Time Associated Comments Diagnosis DEHYDROEPIANDROSTERONE Routine 05/23/2004 11:37 R esults for AM TRUCK DRIVING this procedure are in the results section. TESTOSTERONE TOTAL ADULT Routine 05/23/2004 11:37 Results for MALES AM TRUCK DRIVING this procedure are in the results section. GLUCOSE Routine 05/23/2004 11:37 Results for AM TRUCK DRIVING this procedure are in the results section. THYROID STIMULATING HORMONE Routine 05/23/2004 11:37 Results for AM TRUCK DRIVING this procedure are in the results section. LH Routine 05/23/2004 11:37 Results for AM TRUCK DRIVING this procedure are in the results section. FSH Routine 05/23/2004 11:37 Results for AM TRUCK DRIVING this procedure are in the results section. documented in this encounter Results Glucose (05/23/2004 11:37 AM TRUCK DRIVING) P athologist Signature Lab Glucose 89 60 - 100 HP CONVERSION mg/dL Specimen (Source) Anatomical Collection Method Collection Time Re ceived Time Location / / Volume Laterality 05/23/2004 11:37 AM TRUCK DRIVING Jeri García MD LAB_1 Performing Organization Address City/State/ZIP Code Phon e Number HP CONVERSION Testosterone, Total Adult Males (05/23/2004 11:37 AM TRUCK DRIVING) Analysis Performed At Patho logist Time Signature Testosterone 62 10 - 75 HP CONVERSION Level ng/dL Specimen (Source) Anatomical Collection Method Collection Time Re ceived Time Location / / Volume Laterality 05/23/2004 11:37 AM TRUCK DRIVING Jeri García MD LAB_1 Performing Organization Address City/[facility]/ZIP Code Phon e Number HP CONVERSION Thyroid Stimulating Hormone (05/23/2004 11:37 AM TRUCK DRIVING) athologist Signature Thyroid 1.48 0.20 - HP CONVERSION Stimulating 5.50 Hormone uIU/mL Specimen (Source) Anatomical Collection Method Collection Time Re ceived Time Location / / Volume Laterality 05/23/2004 11:37 AM TRUCK DRIVING Jeri García MD LAB_1 Performing Organization Address City/[facility]/ZIP Code Phon e Number HP CONVERSION Dehydroepiandrosterone (05/23/2004 11:37 AM TRUCK DRIVING) Patholo gist Method Time Signature Dehydroepiandrosterone 5.4 1.9 - 7.6 HP CONV ERSION ng/mL Specimen (Source) Anatomical Collection Method Collection Time Re ceived Time Location / / Volume Laterality 05/23/2004 11:37 AM TRUCK DRIVING Jeri García MD LAB_1 Performing Organization Address City/[facility]/ZIP Code Phon e Number HP CONVERSION LH (05/23/2004 11:37 AM TRUCK DRIVING) P athologist Signature Lh 25 mIU/mL HP CONVERSION Comment: ?LH Value (mIU/mL) Female: ? Range Normally Ovulating Females -Follicular Phase ? 2-13 -Mid-Cycle Peak ? 9- -Luteal Phase ? 0.5-17 Postmenopausal Females ? 5-52 Specimen (Source) Anatomical Collection Method Collection Time Re ceived Time Location / / Volume Laterality 05/23/2004 11:37 AM TRUCK DRIVING Jeri García MD LAB_1 Performing Organization Address City/State/ZIP Code Phon e Number HP CONVERSION FSH (05/23/2004 11:37 AM TRUCK DRIVING) P athologist Signature Follicle 5.1 mIU/mL HP CONVERSION Stimulating Hormone Comment: ? FSH Value(mIU/mL) Normally Menstruating Females ?Range -Follicular Phase ?3.6 - 16.0 -Mid-Cycle Peak ?3.4 - 33.0 -Luteal Phase ?1.5 - 9.1 Postmenopausal Females ?22.9 - 167 Specimen (Source) Anatomical Collection Method Collection Time Re ceived Time Location / / Volume Laterality 05/23/2004 11:37 AM TRUCK DRIVING Jeri García MD LAB_1 Performing Organization Address City/State/ZIP Code Phon e Number HP CONVERSION documented in this encounter Visit Diagnoses Not on filedocumented in this encounter Care Teams Electric Motor Assembler And Tester Relationship Specialty Start Date End Date Jeri García MD PCP - General 08/02/10 09/06/11 [address], [place] [address] documented as of this encounter
--- OUTSIDE RECORDS SUMMARY | 2022-01-05 08:00 | XMS_ITS | Encounter Summary ---
:1985 Author Organization [facility] Address [address] [place] [address] Care Team Providers Name Role Phone Jeri García MD Primary Care Provider Encounter Details Date Type Department Care Team Description 12/11/2002 PN Conversion Only [place] CONVERSION Rahda Landin, EXPANSION ENVELOPE MAKER HAND, [address] [place] [address] [address] [phone] (Wo rk) Social History Tobacco Use [...] Patient: YAMILET DAILY Culture, Urine @ ?Collected: ??[id number] ??1356 Source: Clean Ca ?Processed: ??[id number] ??1356 ? DO SENSI Final Report ------ ?[id number] ??1022 No growth @ = URINE CULTURE Performed at ??[address] [place], [place] ?[address] Specimen (Source) Anatomical Collection Method Collection Time Re ceived Time Location / / Volume Laterality 12/11/2002 1:56 PM CDT Radha Landin EXPANSION ENVELOPE MAKER HAND, ENTRY LEVEL RECRUITER LAB_1 Performing Organization Address City/State/ZIP Code Phon e Number HP CONVERSION documented in this encounter Visit Diagnoses Not on filedocumented in this encounter Care Teams On Awake Counselor Relationship Specialty Start Date End Date Jeri García MD PCP - General 08/02/10 09/06/11 [address] [place] [address] documented as of this encounter
--- OUTSIDE RECORDS SUMMARY | 2022-01-05 08:00 | XMS_ITS | Encounter Summary ---
:1985 Author Organization [facility] Address [address] [place] [address] Care Team Providers Name Role Phone Jeri García MD Primary Care Provider Encounter Details Date Type Department Care Team Description 01/08/2003 PN Conversion Only [facility] Jeri Stack, [address] [place] [address] [address] [phone] [place] [address] (Wo rk) Social History Tobacco Use Types Packs/Day Years Used Date Smoking Tobacco: Never Assessed Sex Assigned at Date Recorded Not on file documented as of this encounter Progress Notes Jeri García MD - 01/08/2003 12:01 AM CDT Progress Notes signed by Jeri García MD at 01/12/03 7779 Author: Jeri García MD Service: (none) Author Type: Physician Filed: 08/18/10 3164 Note Time: 01/08/03 0001 Status: Signed Motor Setter: Jeri García MD (Physician) NAME: YAMILET DAILY MR: [id number] ACCT: [id number] VISIT: [id number] DICTATING CLINICIAN: JERI GARCÍA MD JOB: [id number] CLINIC PROGRESS NOTE DATE OF VISIT: 01/08/2003 SUBJECTIVE: Reason for visit: Abdominal pain. Txvvfmuk-wigu-rdw here one month ago with one weeks [...] mucus. In two weeks she heads to [facility]. ??There is?? a concern about [...] seven days until she is leaving for [facility] and we hate to miss something else brewing. An abdominal and pelvic CT is also scheduled. It is okay per the patient that her mom call and get these results. TT: CT: [id number] C: 01/08/03 23:02 DOCUMENT: [id number] Phone Note, Clinician - 01/02/2003 12:01 AM CDT Phone Note signed by AGUILA Zeng at 02/13/04 1635 Author: Clinician Phone Note Service: (none) Author Type: Resource Filed: 01/08/03 0000 Note Time: 01/02/03 0001 Status: Signed Motor Setter: Clinician Phone Note (Resource) TO: XAVIER DIOR FROM: RHONDA MCGINNIS RN [phone] * PROVIDER MESSAGE: ROUTINE * 01/02/03 10:51AM * *WITHIN 4 HOURS * MESSAGE: Mom calling say her daughter * HOME PHONE:[phone] * is going to [facility] in a few * CONTACT PHONE:[phone] * weeks for 3 months time. She needs * Pt or Mom Leqeen * malaria pills. * PHARMACY: [phone] * SUBJECTIVE: * yumiko reyes * ALLERGIES/SENSITIVITIES... nkda CURRENT MEDICATIONS... none per Mom PERTINENT PAST HISTORY... WEIGHT: PATIENT IS NOT . PATIENT IS NOT NURSING. ASSESSMENT: rx for malaria pills PLAN: DISPOSITION: NO DISPOSITION GIVEN CALL BY RHONDA MCGINNIS RN 01/02/2003 10:48AM [phone] ADDENDUM: <> 01/02/2003 01:51PM by NADEEN BASS: Per Radha Gomez RN OIL DELIVERER, Lariam 250mg as directed. #19 with no refill called to Arleen at [phone]. Recommend calling the Travel clinic to check on immunizations needed or visit www.cdc.gov. Mother notified. L STRETCHER Phone Note, Clinician - 12/15/2002 12:01 AM CDT Phone Note filed by Clinician Phone Note at 08/16/10 2811 Author: Clinician Phone Note Service: (none) Author Type: Resource Filed: 08/16/10 1155 Note Time: 12/15/02 0001 Status: Signed Motor Setter: Clinician Phone Note (Resource) TO: XAVIER DIOR FROM: JAY MEDINA [phone] * PROVIDER MESSAGE: ROUTINE * 12/15/02 08:55AM * *WITHIN 4 HOURS * MESSAGE: Patient's mom calling in * HOME PHONE:[phone] * today to see if the UA results from * CONTACT PHONE:[phone] * her appointment on 12/11/02 with * [...] GIVEN CALL BY JAY MEDINA 12/15/2002 08:52AM [phone] ADDENDUM: <> 12/15/2002 01:20PM by RADHA ROSEN: [...] BRAVO LPN: Notified of normal culture results. L STRETCHER Xavier Braun PA-C - 12/11/2002 12:01 AM CDT Progress Notes signed by Xavier Braun PA-C at 12/23/02 1421 Author: Xavier Braun PA-C Service: (none) Author Type: Physician Service Coordinator Filed: 08/18/10 1627 Note Time: 12/11/02 0001 Status: Signed Motor Setter: Xavier Braun PA-C (Physician Service Coordinator) NAME: YAMILET DAILY MR: [id number] ACCT: [id number] VISIT: [id number] DICTATING CLINICIAN: ROCIO COSME JOB: [id number] CLINIC PROGRESS NOTE DATE OF VISIT: 12/11/2002 [...] 1. UTI. 2. Heart palpitation. TT: CT: [id number] C: 12/11/02 15:18 DOCUMENT: [id number] Radha Ogden - 09/10/2002 12:01 AM CDT Progress Notes signed by AGUILA Zeng at 01/22/04 4567 Author: AGUILA Zeng Service: (none) Author Type: Nurse Practitioner Filed: 08/18/10 7823 Note Time: 09/10/02 0001 Status: Signed Motor Setter: AGUILA Zeng (Nurse Practitioner) NAME: YAMILET DAILY MR: [id number] ACCT: [id number] VISIT: [id number] DICTATING CLINICIAN: RADHA GOMEZ NP JOB: [id number] CLINIC PROGRESS NOTE DATE OF VISIT: 09/10/2002 [...] area and back of the head. Using qfjg-ccc-rnfqmyy Tylenol Sinus yesterday and aspirin for one dose with some good relief of the headache, but not really as much for the pressure. She does have a previous history of sinus infections. No history of allergies. Nonsmoker. MEDICATIONS: None. ADR/ALLERGIES: NKDA. NO LATEX ALLERGY. She is a student at [employer]. One sister sick at home with similar [...] with sinusitis, suspect viral etiology. TT: CT: ALK:[id number] C: 09/11/02 16:08 DOCUMENT: [id number] L STRETCHER Xavier Braun PA-C - 07/09/2002 12:01 AM CST Progress Notes signed by Xavier Braun PA-C at 07/16/02 1126 Author: Xavier Braun PA-C Service: (none) Author Type: Physician Service Coordinator Filed: 08/18/10 1357 Note Time: 07/09/022053 Status: Signed Motor Setter: Xavier Braun PA-C (Physician Service Coordinator) NAME: YAMILET DAILY MR: [id number] ACCT: [id number] VISIT: [id number] DICTATING CLINICIAN: ROCIO COSME JOB: [id number] CLINIC PROGRESS NOTE DATE OF VISIT: 07/09/2002 SUBJECTIVE: : 1985. Chart Number: [id number]. This 17-year-old presents today with one week [...] to flight as she is leaving for [place] tomorrow. Lots of fluids, warm compresses to the sinus areas, steamy baths and showers to help with drainage. Return to clinic as needed for continued or worsening symptoms. FINAL IMPRESSION: Acute sinusitis. TT: CT: [id number] C: 07/10/02 20:33 DOCUMENT: [id number] Nghia Salas - 09/20/2001 12:01 AM CDT Progress Notes signed by at 06/21/02 0001 Author: Nghia Stringer MD Service: (none) Author Type: Physician Filed: 08/18/10 0713 Note Time: 09/20/012053 Status: Signed Motor Setter: Nghia Stringer MD (Physician) IMPRESSION: Acute sinusitis. [...] time if symptoms not resolved. TT: CT: KOURTNEY:[id number] C: DOCUMENT: [id number] L STRETCHER Conversion, [facility] - 06/17/2001 12:01 AM CST Progress Notes signed by at 06/21/022053 Author: Imr Conversion Service: (none) Author Type: (none) Filed: 08/18/10 0457 Note Time: 06/17/012053 Status: Signed Motor Setter: Shelley Conversion IMPRESSION: Postviral cough versus bronchitis. [...] to take. Follow up p.r.n. TT: CT: TIFFANIET:[id number] C: DOCUMENT: [id number] SCHEDULED RESOURCE: ALEKS BREEN / ROCIO L STRETCHER Conversion, [facility] - 11/06/2000 12:01 AM CDT Phone Note signed by at 11/06/00 2649 Author: [facility] Conversion Service: (none) Author Type: (none) Filed: 08/18/10 0007 Note Time: 11/06/002053 Status: Signed Motor Setter: Shelley Conversion IMPRESSION: Need order for shot TO: MARY MENDOZA FROM: CJ YEPEZ RN [phone] * PROVIDER MESSAGE: RETURN * 11/06/00 12:48PM * CALL REQUESTED * MESSAGE: Genesis (mom) calling. * HOME PHONE:[phone] * Yamilet will be going to [place] at * CONTACT PHONE:[phone] * the end of the month and [...] CALL BY CJ YEPEZ RN 11/06/2000 12:45PM [phone] ADDENDUM: <> 11/06/2000 03:04PM by RADHA PIRSE LPN: may have Hepatitis A as injection only per Dr Mendoza. mom does not want child to receive the Hep B at this time. Jeri Meza MD - 06/30/1999 12:01 AM CST Progress Notes signed by Jeri García MD at 07/04/99 0809 Author: Jeri García MD Service: (none) Author Type: Physician Filed: 08/17/10 1553 Note Time: 06/30/99 0001 Status: Signed Motor Setter: Jeri García MD (Physician) IMPRESSION: Sinusitis. 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 She [...] tab po bid for 14 days given. :[id number] C: DOCUMENT: [id number] L STRETCHER Nghia Stringer - 04/20/1999 12:01 AM CST Progress Notes signed by Nghia Stringer MD at 04/21/99 1733 Author: Nghia Stringer MD Service: (none) Author Type: Physician Filed: 08/17/10 1445 Note Time: 04/20/99 0001 Status: Signed Motor Setter: Nghia Stringer MD (Physician) IMPRESSION: Acute sinusitis. [...] 10 days' time if symptoms not resolved. [facility]:[id number] C: DOCUMENT: [id number] L STRETCHER Fernando [facility] - 02/26/1997 12:01 AM CST Phone Note signed by at 02/26/97 0804 Author: Shelley King Service: (none) Author Type: (none) Filed: 08/17/10 0149 Note Time: 02/26/97 0001 Status: Signed Motor Setter: Shelley King IMPRESSION: Sore Throat-(Child)-Nurse Guidelines - TREATING PROVIDER: YAKELIN CARUSO - Appointment made with YAKELIN Garcia HOME PHONE: [phone] * SHADY Feb 26 1997 10:20AM SUBJECTIVE: [...] concerns Call taken by BRODIE GARRETT, RN [phone] 02/26/1997 07:55 AM ADDENDUM: L STRETCHER Yakelin Caruso MD - 02/26/1997 12:01 AM CST Progress Notes signed by Yakelin Caruso MD at 03/04/97 1513 Author: Yakelin Caruso MD Service: (none) Author Type: Physician Filed: 08/17/10 0149 Note Time: 02/26/97 0001 Status: Signed Motor Setter: Yakelin Caruso MD (Physician) IMPRESSION: Pharyngitis. SUBJECTIVE: [...] the throat culture results are back. [id number] L STRETCHER Tobias Adorno MD - 12/03/1996 12:01 AM CDT Progress Notes signed by Tobias Adorno MD at 03/15/97 1624 Author: Tobias Adorno MD Service: (none) Author Type: Physician Filed: 08/17/10 0038 Note Time: 12/03/96 0001 Status: Signed Motor Setter: Tobias Adorno MD (Physician) IMPRESSION: (1) Probable [...] for any suspicious changes. PLAN: N/A. lap L STRETCHER Conversion, [facility] - 07/10/1996 12:01 AM CST Phone Note signed by at 07/10/96 1049 Author: Imr Conversion Service: (none) Author Type: (none) Filed: 08/16/10 4980 Note Time: 07/10/96 0001 Status: Signed Motor Setter: Shelley King IMPRESSION: Nail Abnormality TO: MARY MENDOZA FROM: JACKELYN OSBORN RN [phone] * PROVIDER MESSAGE: ROUTINE * 07/10/96 10:40AM * *WITHIN 4 HOURS * MESSAGE: Please call if there is * HOME PHONE:[phone] * something she could do for this at * CONTACT PHONE:[phone] * home. * mom-Genesis * SUBJECTIVE: * [...] the nail has grown out. Occasionally wears romansh and false nails. No crumbling, yellow, or thickened nails. ALLERGIES/SENSITIVITIES... NKDA 07/10/96 CURRENT MEDICATIONS... none 07/10/96 PERTINENT PAST HISTORY... healthy 07/10/96 WEIGHT: PATIENT IS NOT . PATIENT IS NOT NURSING. ASSESSMENT: Nail Abnormality PLAN: DISPOSITION: NO DISPOSITION GIVEN CALL BY JACKELYN OSBORN RN 07/10/1996 10:36AM [phone] ADDENDUM: Jennifer Wolf APRN, CNP - 01/17/1996 12:01 AM CDT Progress Notes signed by Jennifer Beasley APRN, CNP at 01/22/96 5015 Author: LALI Ag Service: (none) Author Type: Nurse Practitioner Filed: 08/16/102053 Note Time: 01/17/96 0001 Status: Signed Motor Setter: LALI Ag (Nurse Practitioner) IMPRESSION: Healthy almost [...] signed by Mary Mendoza MD at 10/12/94 7344 Author: Mary Mendoza MD Service: (none) Author Type: Physician Filed: 08/16/10 3301 Note Time: 10/09/94 0001 Status: Signed Motor Setter: Mary Mendoza MD (Physician) IMPRESSION: Rash behind [...] 1:18 PM Resul ts for this LATERAL TOWEL STRETCHER procedure are i n the results section. documented in this encounter Results XR Chest PA With Lateral (06/17/2001 1:18 PM TOWEL STRETCHER) Anatomical Region Laterality Modality Other Specimen (Source) Anatomical Location Collection Method / Collectio n Time Received Time / Laterality Volume Impressions 06/17/2001 1:18 PM TOWEL STRETCHER : ?NORMAL CHEST. FINDINGS: ?CH1 ?THE CARDIOVASCULAR STRUCTURES APPE AR NORMAL. ?NO EVIDENCE OF ACTIVE PULMONARY DI SEASE. TECH-ID : ? VV TRANS-ID: Narrative 06/17/2001 1:18 PM TOWEL STRETCHER CLINICAL DATA: ?COUGH Procedure Note Jesse Escobar - 07/06/2016 CLINICAL DATA: COUGH IMPRESSION : NORMAL CHEST. FINDINGS: CH1 THE CARDIOVASCULAR STRUCTURES APPEAR NO RMAL. NO EVIDENCE OF ACTIVE PULMONARY DISEASE . TECH-ID : VV TRANS-ID: Aleks Breen PARene RAD GD documented in this encounter Visit Diagnoses Not on filedocumented in this encounter Care Teams Cook Frozen Dessert Relationship Specialty Start Date End Date Jeri García MD PCP - General 08/02/10 09/06/11 [address] [place] [address] documented as of this encounter
--- OUTSIDE RECORDS SUMMARY | 2022-01-05 08:00 | XMS_ITS | Encounter Summary ---
:1985 Author Organization [facility] Address [address] [place] [address] Care Team Providers Name Role Phone Jeri García MD Primary Care Provider Encounter Details Date Type Department Care Team Description 06/23/2005 Office Visit [facility] [address] Twila Clolier MD Dermatology [address] [facility] [address] [facility] [place] [address] [place], [place] [address] [phone] Social History Tobacco Use Types Packs/Day Years [...] 1140 Note Time: 06/23/05 0001 Status: Signed Drill Press Operator: Twila Collier MD (Physician) NAME: YAMILET DAILY MR: [id number] ACCT: [id number] VISIT: [id number] DICTATING CLINICIAN: TWILA COLLIER MD JOB: [id number] CLINIC PROGRESS NOTE DATE OF VISIT: 06/23/2005 SUBJECTIVE: Rdjxfp-php-owkk-old female presents in followup for acne. I [...] follow up with me in two months. RSH:[id number] C: 06/23/05 12:15 DOCUMENT: [id number] CAL TECHNICIANS documented in this encounter Plan of Treatment Not on filedocumented as of this encounter Visit Diagnoses Not on filedocumented in this encounter Care Teams German Teacher Relationship Specialty Start Date End Date Jeri García MD PCP - General 08/02/10 09/06/11 [address] [place] [address] documented as of this encounter
--- OUTSIDE RECORDS SUMMARY | 2022-01-05 08:00 | XMS_ITS | Encounter Summary ---
:1985 Author Organization [facility] Address [address] [place] [address] Care Team Providers Name Role Phone Megan García MD Primary Care Provider Encounter Details Date Type Department Care Team Description 05/23/2004 Office Visit Megan Malcolm MD [address] [place] [address] [place] [address] [phone] (Wo rk) Social History Tobacco Use Types [...] 0350 Note Time: 05/23/04 0001 Status: Signed Ict Educator: Megan García MD (Physician) NAME: YAMILET DAILY MR: [id number] ACCT: [id number] VISIT: [id number] DICTATING CLINICIAN: MEGAN GARCÍA MD JOB: [id number] CLINIC PROGRESS NOTE DATE OF VISIT: 05/23/2004 SUBJECTIVE: : 1985. REASON FOR VISIT: Acne. Glducq-xmr-bdsy-old here concerned about a number of things [...] it there. 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 CURRENT MEDICATIONS: Azelex. ADR/ALLERGIES: SHE HAS NO [...] she becomes sexually active. PLAN: See assessment. SP:[id number] C: 05/23/04 15:05 DOCUMENT: [id number] ARD PULLER documented in this encounter Plan of Treatment Not on filedocumented as of this encounter Visit Diagnoses Not on filedocumented in this encounter Care Teams Landscape Architect And Planner Relationship Specialty Start Date End Date Megan García MD PCP - General 08/02/10 09/06/11 [address] [place] [address] documented as of this encounter
--- OUTSIDE RECORDS SUMMARY | 2022-01-05 08:00 | XMS_ITS | Encounter Summary ---
:1985 Author Organization [facility] Address [address] [place] [address] Care Team Providers Name Role Phone Jeri García MD Primary Care Provider Encounter Details Date Type Department Care Team Description 12/11/2002 PN Conversion Only [place] CONVERSION Mariano Braun PAScottieC [address] [place] [address] [place] [address] (Wo rk) Social History Tobacco Use Types [...] - HP CONVERSION Hemoglobin Conc 36.5 gm/dL [place] RDW 12.3 11.0 - HP CONVERSION 15.0 % Platelet Count 207 140 - 450 HP CONVERSION k/cmm Specimen (Source) Anatomical Collection Method Collection Time Re ceived Time Location / / Volume Laterality 12/11/2002 12:10 PM CDT Mariano Braun PA-C LAB_1 Performing Organization Address City/[facility] Code Phon e Number HP CONVERSION (ABNORMAL) Urinalysis Complete (12/11/2002 12:10 PM CDT) Patholo gist Method Time Signature Glucose, Negative Neg-Trac HP CONVERSION Qualitative U Protein Urine Negative Neg-Trac HP CONVERSION Ketones Negative Negative HP CONVERSION U BILI Negative Negative HP CONVERSION U Specific 1.010 1.005 - 25 HP CONVERSION Rogers Blood Urine Small (A) Negative HP CONVERSION [...] Mariano Braun PA-C LAB_1 Performing Organization Address [facility] Phon e Number HP CONVERSION Electrolytes (NA, [...] Lugo Aparna SAVAGE LAB_1 Performing Organization Address City/[facility] Phon e Number HP CONVERSION Thyroid Stimulating Hormone (12/11/2002 12:10 PM CDT) athologist Signature Thyroid 0.95 0.20 - HP CONVERSION Stimulating 5.50 Hormone uIU/mL Specimen (Source) Anatomical Collection Method Collection Time Re ceived Time Location / / Volume Laterality 12/11/2002 12:10 PM CDT Mariano Lugo Aparna CHAN-Joesph LAB_1 Performing Organization Address [facility] Code Phon e Number HP CONVERSION Hgb A1c (12/11/2002 12:10 PM CDT) athologist Signature HGB A1C 4.8 <6.0 % HP CONVERSION Specimen (Source) Anatomical Collection Method Collection Time Re ceived Time Location / / Volume Laterality 12/11/2002 12:10 PM CDT Mariano Lugo Aparna CHAN-Joesph LAB_1 Performing Organization Address [facility] Code Phon e Number HP CONVERSION documented in this encounter Visit Diagnoses Not on filedocumented in this encounter Care Teams Cruise Agent Relationship Specialty Start Date End Date Jeri García MD PCP - General 08/02/10 09/06/11 [address] [place] [address] documented as of this encounter
--- OUTSIDE RECORDS SUMMARY | 2022-01-05 08:00 | XMS_ITS | Encounter Summary ---
:1985 Author Organization [facility] Address [address] [place] [address] Care Team Providers Name Role Phone Megan García MD Primary Care Provider Reason for Visit Reason Comments Other Encounter Details Date Type Department Care Team Description 06/08/2004 Telephone [place] [employer], Message Other [address] [address] Social History Tobacco Use Types Packs/Day Years Used Date Smoking Tobacco: Never Assessed Sex Assigned at Date Recorded Not on file documented as of this encounter Progress Notes Khushi Gibson - 06/08/2004 11:47 AM CST Phone Note filed by Khushi Gibson RN at 08/15/10 2293 Author: Khushi Gibson RN Service: (none) Author Type: (none) Filed: 08/15/10 3929 Note Time: 06/08/04 1147 Status: Signed Data Security Consultant: Khushi Gibson RN (Registered Nurse) Pt saw [...] try something else. Pharmacy [phone]. She gets one month at a time. Pt is at [phone] and you can LM. Created on 08Jun2004 [...] on filedocumented in this encounter Care Teams Vice President Of Contracts Relationship Specialty Start Date End Date Megan García MD PCP - General 08/02/10 09/06/[address] [place] [address] documented as of this encounter
--- OUTSIDE RECORDS SUMMARY | 2022-01-05 08:00 | XMS_ITS | Encounter Summary ---
:1985 Author Organization [facility] Address [address] [place] [address] Care Team Providers Name Role Phone Jeri García MD Primary Care Provider Encounter Details Date Type Department Care Team Description 08/26/2003 PN Conversion Only [place] Dermatolo gy Mikala Del Valle, [address] [facility] [place] [address] [phone] [place], [place] [address] (Wo rk) Social History Tobacco Use Types Packs/Day Years Used Date Smoking Tobacco: Never Assessed Sex Assigned at Date Recorded Not on file documented as of this encounter Progress Notes Mikala Del Valle PA-C - 08/26/2003 12:01 AM CDT Progress Notes signed by Mikala Del Valle PA-C at 01/25/04 1637 Author: Mikala Kumari PA-C Service: (none) Author Type: Physician Picked Edge Sewing Machine Operator Filed: 08/18/10 6939 Note Time: 08/26/03 0001 Status: Signed Transcriber: Mikala Kumari PA-C (Physician Picked Edge Sewing Machine Operator) NAME: YAMILET DAILY MR: [id number] ACCT: [id number] VISIT: [id number] DICTATING CLINICIAN: ROCIO DRIVER JOB: [id number] CLINIC PROGRESS NOTE DATE OF VISIT: 08/26/2003 [...] chest or back. She has tried various luqg-yno-zctvmzr products. Does seem to get irritated with [...] involvement of her chest, back or shoulders. [id number] C: 08/26/03 19:06 DOCUMENT: [id number] documented in this encounter Plan of Treatment Not on filedocumented as of this encounter Visit Diagnoses Not on filedocumented in this encounter Care Teams Peoplesoft Financials Consultant Relationship Specialty Start Date End Date Jeri García MD PCP - General 08/02/10 09/06/11 [address] [place], [place] [id number] documented as of this encounter
--- OUTSIDE RECORDS SUMMARY | 2022-01-05 08:00 | XMS_ITS | Encounter Summary ---
:1985 Author Organization [facility] Address [address] [place] [address] Care Team Providers Name Role Phone Megan García MD Primary Care Provider Encounter Details Date Type Department Care Team Description 07/28/2004 Office Visit Megan Malcolm MD [facility] [address] [facility] [place] [address] [place] [address] [phone] (Wo rk) Social History Tobacco Use Types Packs/Day Years Used Date Smoking Tobacco: Never Assessed Sex Assigned at Date Recorded Not on file documented as of this encounter Last Filed Vital Signs Vital Sign Reading Time Taken Comments Blood Pressure 132/86 07/28/2004 2:17 PM COMB TENDER Pulse 80 07/28/2004 2:17 PM COMB TENDER Temperature - - Respiratory Rate - - Oxygen Saturation - - Inhaled Oxygen Concentration - - Weight 54.4 kg (119 lb 15.9 oz) 07/28/2004 2:17 PM COMB TENDER C: 54.4kg Height - - Body Mass Index - - documented in this encounter Progress Notes Megan García MD - 07/28/2004 12:01 AM CST Progress Notes signed by Megan García MD at 08/01/04 0742 Author: Megan García MD Service: (none) Author Type: Physician Filed: 08/19/10 0510 Note Time: 07/28/04 0001 Status: Signed Gas Well Pumper: Megan García MD (Physician) NAME: YAMILET DAILY MR: [id number] ACCT: [id number] VISIT: [id number] DICTATING CLINICIAN: MEGAN GARCÍA MD JOB: [id number] CLINIC PROGRESS NOTE DATE OF VISIT: 07/28/2004 [...] return here in two to three months. [id number] C: 07/29/04 07:48 DOCUMENT: [id number] documented in this encounter Plan of Treatment Not on filedocumented as of this encounter Visit Diagnoses Not on filedocumented in this encounter Care Teams Washtub Worker Relationship Specialty Start Date End Date Megan García MD PCP - General 08/02/10 09/06/11 [address] [place] [address] documented as of this encounter
--- OUTSIDE RECORDS SUMMARY | 2022-01-05 08:00 | XMS_ITS | Encounter Summary ---
:1985 Author Organization [facility] Address [address] [place] [address] Care Team Providers Name Role Phone Jeri García MD Primary Care Provider Encounter Details Date Type Department Care Team Description 05/10/2005 PN Conversion Only [place] Mariano Lennon PA-C [address] [place] [address] [place] [address] (Wo rk) Social History Tobacco Use Types Packs/Day Years Used Date Smoking Tobacco: Never Assessed Sex Assigned at Date Recorded Not on file documented as of this encounter Plan of Treatment Not on filedocumented as of this encounter Procedures Procedure Name Priority Date/Time Associated Diagnosis Comme nts POTASSIUM Routine 05/10/2005 3:25 PM Results f or this OUTSIDE INSTALLATION MACHINIST procedure are i n the results section . documented in this encounter Results Potassium (05/10/2005 3:25 PM OUTSIDE INSTALLATION MACHINIST) P athologist Signature Potassium 4.0 3.5 - 5.2 HP CONVERSION meq/L Specimen (Source) Anatomical Collection Method Collection Time Re ceived Time Location / / Volume Laterality 05/10/2005 3:25 PM OUTSIDE INSTALLATION MACHINIST Mariano Braun PA-C LAB_1 Performing Organization Address City/State/ZIP Code Phon e Number HP CONVERSION documented in this encounter Visit Diagnoses Not on filedocumented in this encounter Care Teams Powdered Metal Supervisor Relationship Specialty Start Date End Date Jeri García MD PCP - General 08/02/10 09/06/11 [address] [place] [address] documented as of this encounter
--- OUTSIDE RECORDS SUMMARY | 2022-01-05 08:00 | XMS_ITS | Encounter Summary ---
:1985 Author Organization [facility] Address [address] [place] [address] Care Team Providers Name Role Phone Jeri García MD Primary Care Provider Encounter Details Date Type Department Care Team Description 10/28/2003 Office Visit [place] Dermatolo gy Mikala Del Valle PA-C [address] [facility] [address] [place] [address] [place] [address] [phone] (Wo rk) Social History Tobacco Use Types Packs/Day Years Used Date Smoking Tobacco: Never Assessed Sex Assigned at Date Recorded Not on file documented as of this encounter Progress Notes Mikala Del Valle PA-C - 10/28/2003 12:01 AM CDT Progress Notes signed by Mikala Del Valle PA-C at 01/25/04 4087 Author: Mikala Kumari PA-C Service: (none) Author Type: Physician Cleaner Wall Filed: 08/19/10 0010 Note Time: 10/28/03 0001 Status: Signed Manufacturing Team Member: Mikala Kumari PA-C (Physician Cleaner Wall) NAME: YAMILET DAILY MR: [id number] ACCT: [id number] VISIT: [id number] DICTATING CLINICIAN: ROCIO DRIVER JOB: [id number] CLINIC PROGRESS NOTE DATE OF VISIT: 10/28/2003 [...] counseling on how to treat the acne. [id number] C: 10/28/03 16:10 DOCUMENT: [id number] documented in this encounter Plan of Treatment Not on filedocumented as of this encounter Visit Diagnoses Not on filedocumented in this encounter Care Teams Lead Producer Relationship Specialty Start Date End Date Jeri García MD PCP - General 08/02/10 09/06/11 [address] [place] [address] documented as of this encounter
[2022-01-05 14:14] LABS: Chloride* 104 mmol/L (96-114); Potassium* 4.3 mmol/L (3.6-5.1); Sodium* 138 mmol/L (135-149)
[2022-01-05 14:16] LABS: Creatinine* 0.8 mg/dL (0.5-1.5); Estimated Glomerular Filt Rate 97 ml/min
[2022-01-05 14:17] LABS: Alanine Aminotransferase* 19 U/L (4-35); Alkaline Phosphatase* 69 U/L (40-150); Aspartate Amino Transferase* 23 U/L (12-35); Blood Urea Nitrogen* 13 mg/dL (5-24); Carbon Dioxide* 25 mmol/L (20-32); Glucose* 99 mg/dL (60-115); Total Protein* 7.6 g/dL (6.0-8.3)
[2022-01-05 14:18] LABS: Calcium* 9.1 mg/dL (8.4-10.6)
[2022-01-05 14:51] LABS: Vitamin B12* 344 pg/mL (243-894)
[2022-01-05 15:15] LABS: Vitamin D 25 Hydroxy* 39 ng/mL (30-80)
== END 2022-01-05 07:55 | disposition home or self-care (01) ==
PROVIDERS: Visit Provider Physician Assistant Medical
DX: R10.10 Upper abdominal pain, unspecified (principal); M54.50 Low back pain, unspecified; R53.83 Other fatigue; E28.2 Polycystic ovarian syndrome; N92.5 Other specified irregular menstruation; Z80.0 Family history of malignant neoplasm of digestive organs; N91.3 Primary oligomenorrhea; Z13.21 Encounter for screening for nutritional disorder
CPT/HCPCS: 80053; 82306; 82607; 84443

== ENCOUNTER 2022-01-09 07:04 | Outpatient (CLI) | payer OTHER, SELFPAY ==
--- OUTSIDE RECORDS SUMMARY | 2022-01-09 07:07 | XMS_ITS | Encounter Summary ---
:1985 Author Organization [facility] Address [address] [place] [address] Care Team Providers Name Role Phone Kristine Mendez MD Primary Care Provider Reason for Visit Procedure/Equipment (Routine) - Incomplete Specialty Diagnoses / Procedures Referred By Contact Refer red To Contact Diagnoses Left breast mass Madeleine Page, LASER BEAM MACHINE OPERATOR, PRIMARY SPECIAL EDUCATION TEACHER Procedures YMM Mammogram Diag Bilat W 3D Aurelia MM Mammogram Diag Bilat [address] [place] [address] Referral ID Status Reason Start Date Expiration Date Visits V isits Requested Authorized [id number] Incomplete 05/23/2019 08/21/2020 1 1 Encounter Details Date Type Department Care Team Description 05/28/2019 Ancillary Procedure [facility] [address] Madeleine Page , Left breast mass Mammography LASER BEAM MACHINE OPERATOR, PRIMARY SPECIAL EDUCATION TEACHER [address] [facility] [address] [place] [address] [phone] Social History Tobacco Use Types Packs/Day Years [...] an ultrasound-guided biopsy 06-03-2019. Sent message to [employer]NE[employer] BLOCK BENCH HAND documented in this encounter Plan of Treatment Not on filedocumented as of this encounter Procedures Procedure Name Priority Date/Time Associated Diagnosis Comme nts [facility] MAMMOGRAM DIAG Routine 05/28/2019 2:16 PM Left breast mass Results for this BILAT W 3D AURELIA HAT BLOCK BENCH HAND procedure ar e in the results section. documented in this encounter Results (ABNORMAL) [facility] US Breast Lt (05/28/2019 3:07 PM HAT BLOCK BENCH HAND) Anatomical Region Laterality Modality Breast Left Ultrasound Specimen (Source) Anatomical Collection Method Collection Time Re ceived Time Location / / Volume Laterality 05/28/2019 2:58 PM HAT BLOCK BENCH HAND Impressions 05/28/2019 3:44 PM HAT BLOCK BENCH HAND HISTORY: Left breast mass 12:00 p.m., 2 [...] is indeterminate. Ultrasound-guided biopsy is recommended. [facility] will attempt to schedule the [...] BI-RADS CATEGORY 4: Susp icious. Madeleine Page LASER BEAM MACHINE OPERATOR, PRIMARY SPECIAL EDUCATION TEACHER RAD ERIC (ABNORMAL) YMM Mammogram Diag Bilat W 3D Aurelia (05/28/2019 2:16 PM HAT BLOCK BENCH HAND) Anatomical Region Laterality Modality Breast Bilateral Mammography Specimen (Source) Anatomical Collection Method Collection Time Re ceived Time Location / / Volume Laterality 05/28/2019 2:15 PM HAT BLOCK BENCH HAND Impressions 05/28/2019 3:44 PM HAT BLOCK BENCH HAND HISTORY: Left breast mass 12:00 p.m., 2 [...] is indeterminate. Ultrasound-guided biopsy is recommended. [facility] will attempt to schedule the [...] BI-RADS CATEGORY 4: Susp icious. Madeleine Page LASER BEAM MACHINE OPERATOR, PRIMARY SPECIAL EDUCATION TEACHER RAD ERIC documented in this encounter Visit Diagnoses Diagnosis Left breast mass Lump or mass in breast Left breast mass Lump or mass in breast documented in this encounter Care Teams Math Instructor Relationship Specialty Start Date End Date Kristine Mendez MD PCP - General 01/01/14 [address] [place] [place] [address] documented as of this encounter
--- OUTSIDE RECORDS SUMMARY | 2022-01-09 07:07 | XMS_ITS | Encounter Summary ---
:1985 Author [facility] Address [address] [place] [address] Care Team Providers Name Role Phone Kristine Mendez MD Primary Care Provider Encounter Details Date Type Department Care Team Description 03/03/2014 Notes/Orders Amy Internal Apolonia Cm, Radha pa in in female Medicine MD (Primary Dx) [address] [place] [address] [place] [address] [phone] Social History Tobacco Use Types Packs/Day Years [...] organs documented in this encounter Care Teams Water Quality Control Engineer Relationship Specialty Start Date End Date Kristine Mendez MD PCP - General 01/01/14 [address] [place] [address] documented as of this encounter
--- OUTSIDE RECORDS SUMMARY | 2022-01-09 07:07 | XMS_ITS | Encounter Summary ---
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 Smoking status: Never Smoker ??? Smokeless tobacco: Not on file ??? Alcohol Use: No Comment: rare ??? Drug Use: No ??? Sexual Activity: Partners: Male Control/ Protection: Other Topics Concern ??? Exercise Yes ??? Seat Belt Yes ??? Special Diet No ??? 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 OELECTRIC SYSTEMS TECHNICIAN documented in this encounter Plan of [...] Results Urine Culture (02/23/2014 2:51 PM CDT) [facility] Method Time Signature Source Urine HP CONVERSION Site HP CONVERSION Urine Culture No growth HP CONVERSION Specimen (Source) Anatomical Collection Method Collection Time Re ceived Time Location / / Volume Laterality Urine: 02/23/2014 2:51 PM CDT Kristine Mendez MD LAB_1 Performing Organization Address [facility] Code Phon e Number HP [...] - 02/23/2014 3:19 PM CDT Performed at [facility] [address] [place] [address] Transcriptions 06/08/2016 2:42 PM CSTNotes Recorded by Kristine Mendez MD on 02/23/2014 at 3:24 PMPt on cipro BID to complete 7 day course for incomplete tx of sx on 3 day from online clinic - await Kristine Mendez MD LAB_1 Performing Organization Address [facility] Phon e Number HP CONVERSION (ABNORMAL) URINALYSIS ROUTINE, MICRO/CULTURE IF POS (02/23/2014 2:51 PM CDT) [facility] Method Time Signature Urine Type Urine:clean [...] U Specific >=1.030 1.005 - HP CONVERSION [place] 1.030 Urobilinogen Negative Negative HP CONVERSION Urine Specimen (Source) Anatomical Collection Method Collection Time Re ceived Time Location / / Volume Laterality Urine: 02/23/2014 2:51 PM CDT Narrative HP CONVERSION - 02/23/2014 2:59 PM CDT Performed at [facility] [address] [facility], [place] [address] Transcriptions 06/08/2016 2:42 PM CSTNotes Recorded by [...] organs documented in this encounter Care Teams Liner Replacer Relationship Specialty Start Date End Date Kristine Mendez MD PCP - General 01/01/14 [address] [place] [address] documented as of this encounter
--- OUTSIDE RECORDS SUMMARY | 2022-01-09 07:07 | XMS_ITS | Encounter Summary ---
:1985 Author Organization [facility] Address [address] [place] [address] Care Team Providers Name Role Phone Kristine Mendez MD Primary Care Provider Encounter Details Date Type Department Care Team Description 01/01/2014 Lab Visit [facility] Thyroid mass; [address] [facility] Lymphadenopathy [place], [place] [address] Social History Tobacco Use Types Packs/Day Years [...] - 01/01/2014 11:19 AM CDT Performed at [facility], [address] [place] [address] Kristine Mendez MD LAB_1 Performing Organization Address [facility] Phon e Number HP CONVERSION HIV ANTIBODY (01/01/2014 11:02 AM CDT) athologist Signature HIV 1/HIV 2 Non-React Non-Reacti HP CONVERSION ve Specimen Anatomical Collection Method Collection Time Receive d Time (Source) Location / / Volume Laterality 01/01/2014 11:02 01/01/2014 3:54 AM CDT PM CDT Kristine Mendez MD LAB_1 Performing Organization Address [facility] Phon e Number HP CONVERSION Long Test (01/01/2014 11:02 AM CDT) [facility] Method Time Signature Mononucleosis Negative Negative HP CONVERSION Screen Specimen Anatomical Collection Method Collection Time Receive d Time (Source) Location / / Volume Laterality 01/01/2014 11:02 01/01/2014 AM CDT 11:02 AM CDT Narrative HP CONVERSION - 01/01/2014 11:14 AM CDT Performed at [facility], [address] [place] [address] Kristine Mendez MD LAB_1 Performing Organization Address [facility] Phon e Number HP CONVERSION Antithyroid Peroxidase (01/01/2014 11:02 AM CDT) athologist Signature Thyroid 2.8 0.0 - 9.0 HP CONVERSION Peroxidase (TPO) Antibodies Specimen Anatomical Collection Method Collection Time Receive d Time (Source) Location / / Volume Laterality 01/01/2014 11:02 01/01/2014 4:01 AM CDT PM CDT Narrative HP CONVERSION - 01/02/2014 2:51 PM CDT Performed at [facility] [address] [place] [address] Kristine Mendez MD LAB_1 Performing Organization Address [...] - 01/01/2014 11:19 AM CDT Performed at [facility], [address] [place] [address] Kristine Mendez MD LAB_1 Performing Organization Address City/State/ZIP Code Phon e Number HP CONVERSION Free T4 (01/01/2014 11:02 AM CDT) athologist Signature Thyroxine, Free 1.1 0.8 - 1.8 HP CONVERSION ng/dL Specimen Anatomical Collection Method Collection Time Receive d Time (Source) Location / / Volume Laterality 01/01/2014 11:02 01/01/2014 3:54 AM CDT PM CDT Kristine Mendez MD LAB_1 Performing Organization Address City/[facility] Phon e Number HP CONVERSION THYROID STIMULATING [...] nodes documented in this encounter Care Teams Licensed Tax Consultant Relationship Specialty Start Date End Date Kristine Mendez MD PCP - General 01/01/14 [address] [place] [address] documented as of this encounter
--- OUTSIDE RECORDS SUMMARY | 2022-01-09 07:07 | XMS_ITS | Encounter Summary ---
:1985 Author Organization [facility] Address [address] [place] [address] Care Team Providers Name Role Phone Kristine Mendez MD Primary Care Provider Encounter Details Date Type Department Care Team Description 01/02/2014 Lab Visit [facility] [address] Thyroid m ass; Laboratory Hirsutism; [facility] [place] or infrequent menstru ation; [place] [address] Thyroid nodule [phone] Social History Tobacco Use Types Packs/Day Years [...] - 01/02/2014 2:31 PM CDT Performed at [facility] [address] [place] [address] [address] Carterjuan jose [facility] LAB_1 Performing Organization Address City/[facility]/ZIP Code Phon e Number HP CONVERSION TESTOSTERONE FREE TOTAL FEMALES AND CHILDREN (01/02/2014 1:52 PM CDT) Analysis Performed At [facility] Time Signature Testosterone 36 9 - 55 HP CONVERSION Female or ng/dL Children Comment: Total Testosterone, Females 18 years and older Premenopausal ??9-55 ng/dL Postmenopausal 5-32 ng/dL REFERENCE INTERVAL: Testosterone, LC-MS/ MS Access complete set of age- and/or gende r-specific reference intervals for this test in the [facility]IC Test Directory ([facility]). Test developed and characteristics deter mined by [facility]. See Compliance Statement B : [facility]/CS Testosterone Free Female and Child 3.6 0.8 [...] reference intervals for this test in the [facility] Test Directory ([facility]). Sex Hormone Binding Globulin 72 30 - 135 nmol/L HP CONVERSION Comment: REFERENCE INTERVAL: Sex Hormone Binding Globulin Access complete set of age- and/or gende r-specific reference intervals for this test in the [facility] Test Directory ([facility]). Specimen Anatomical Collection Method Collection Time Receive d Time (Source) Location / / Volume Laterality 01/02/2014 1:52 PM 4 4:10 CDT PM CDT Narrative HP CONVERSION - 01/05/2014 4:30 AM CDT Performed at [facility] [address] [place] [address] Lima Garzagian [facility] LAB_1 Performing Organization Address City/[facility] Code Phon e Number HP [...] - 01/06/2014 5:45 PM CDT Performed at [facility] [address] [place] [address] Lima Garzagian [facility] LAB_1 Performing Organization Address [facility] Phon e Number HP CONVERSION ANDROSTENEDIONE (01/02/2014 1:52 PM CDT) athologist Signature Androstenedione 1.250 0.260 - HP CONVERSION 2.140 ng/mL Comment: INTERPRETIVE INFORMATION: Androstenedion e, Females 18 years and older Post-menopausal: 0.13-0.82 ng/mL REFERENCE INTERVAL: Androstenedione by T MS Access complete set of age- and/or gende r-specific reference intervals for this test in the [facility] Test Directory ([facility]). Test developed and characteristics deter mined by [facility]. See Compliance Statement B : [facility]/CS Specimen Anatomical Collection Method Collection Time Receive d Time (Source) Location / / Volume Laterality 01/02/2014 1:52 PM 4 5:01 CDT PM CDT Narrative HP CONVERSION - 01/04/2014 6:34 PM CDT Performed at [facility] [address] [place] [address] Jayashreeivan Kadi [facility] LAB_1 Performing Organization Address [facility] Phon e Number HP CONVERSION DEHYDROEPIANDROSTERONE SULFATE PEDS (01/02/2014 1:52 PM CDT) Component Value Ref Test Analysis Performed At [facility] Range Method Time Signature Dehydroepiandrosterone 172 45 - 270 HP CONV ERSION Sulfate ug/dL Comment: REFERENCE INTERVAL: DHEAS Access complete set of age- and/or gende r-specific reference intervals for this test in the [facility] Test Directory ([facility]). Specimen Anatomical Collection Method Collection Time Receive d Time (Source) Location / / Volume Laterality 01/02/2014 1:52 PM 4 5:01 CDT PM CDT Narrative HP CONVERSION - 01/04/2014 9:05 AM CDT Performed at [facility] [address] [place] [address] [place] Garzagian [facility] LAB_1 Performing Organization Address City/State/ZIP Code Phon e Number HP CONVERSION documented in this encounter Visit Diagnoses Diagnosis Thyroid mass ([facility]) Unspecified disorder of thyroid Hirsutism [place] or infrequent menstruation Thyroid nodule ([facility]) Nontoxic uninodular goiter documented in this encounter Care Teams Surface Water Manager Relationship Specialty Start Date End Date Kristine Mendez MD PCP - General 01/01/14 [address] [place] [address] documented as of this encounter
--- OUTSIDE RECORDS SUMMARY | 2022-01-09 07:07 | XMS_ITS | Encounter Summary ---
:1985 Author Organization [employer] Address [address] [place] [address] Care Team Providers Name Role Phone Kristine Mendez MD Primary Care Provider Reason for Visit Reason Comments RESULTS, TEST Encounter Details Date Type Department Care Team Description 01/28/2014 Telephone [facility] [address] Jimena Magaña cca, MD RESULTS, TEST Endocrinology [address] [place] [place] [address] [place] [address] [phone] Social History Tobacco Use Types Packs/Day Years [...] on filedocumented in this encounter Care Teams Crop Grain Or Livestock Farmer Relationship Specialty Start Date End Date Kristine Mendez MD PCP - General 01/01/14 [address] [address] documented as of this encounter
--- OUTSIDE RECORDS SUMMARY | 2022-01-09 07:07 | XMS_ITS | Encounter Summary ---
:1985 Author Organization [facility] Address [address] [place] [address] Care Team Providers Name Role Phone Kristine Mendez MD Primary Care Provider Reason for Visit Procedure/Equipment (Routine) - Incomplete Specialty Diagnoses / Procedures Referred By Contact Refer red To Contact Diagnoses Left breast mass Madeleine Page, MECHANICAL OPERATOR, ASPHALT SPREADER Procedures [facility] [place] [address] [place] [address] Referral ID Status Reason Start Date Expiration Date Visits V isits Requested Authorized [id number] Incomplete 05/23/2019 08/21/2020 1 1 Encounter Details Date Type Department Care Team Description 05/28/2019 Ancillary Procedure [facility] 38[address] Madeleine Page , Left breast mass Mammography MECHANICAL OPERATOR, ASPHALT SPREADER 3850 [facility] [address] [place] [address] [phone] Social History Tobacco Use Types Packs/Day Years [...] Name Priority Date/Time Associated Diagnosis Comme nts [facility] US BREAST LT Routine 05/28/2019 3:07 PM Left breast mass R esults for this FULL CHARGE BOOKKEEPER procedure are i n the results section. documented in this encounter Results (ABNORMAL) [facility] US Breast Lt (05/28/2019 3:07 PM FULL CHARGE BOOKKEEPER) Anatomical Region Laterality Modality Breast Left Ultrasound Specimen (Source) Anatomical Collection Method Collection Time Re ceived Time Location / / Volume Laterality 05/28/2019 2:58 PM FULL CHARGE BOOKKEEPER Impressions 05/28/2019 3:44 PM FULL CHARGE BOOKKEEPER HISTORY: Left breast mass 12:00 p.m., 2 [...] is indeterminate. Ultrasound-guided biopsy is recommended. The [facility] will attempt to schedule the [...] is indeterminate. Ultrasound-guided biopsy is recommended. The [facility] will attempt to schedule the recommended follow up with the patient. IMPRESSION: ACR BI-RADS CATEGORY 4: Susp icious. Madeleine Page MECHANICAL OPERATOR, ASPHALT SPREADER RAD ERIC (ABNORMAL) [facility] Mammogram Diag Bilat W 3D Brodie (05/28/2019 2:16 PM FULL CHARGE BOOKKEEPER) Anatomical Region Laterality Modality Breast Bilateral Mammography Specimen (Source) Anatomical Collection Method Collection Time Re ceived Time Location / / Volume Laterality 05/28/2019 2:15 PM FULL CHARGE BOOKKEEPER Impressions 05/28/2019 3:44 PM FULL CHARGE BOOKKEEPER HISTORY: Left breast mass 12:00 p.m., 2 [...] is indeterminate. Ultrasound-guided biopsy is recommended. The [facility] will attempt to schedule the [...] is indeterminate. Ultrasound-guided biopsy is recommended. The [facility] will attempt to schedule the recommended follow up with the patient. IMPRESSION: ACR BI-RADS CATEGORY 4: Susp icious. Madeleine Page MECHANICAL OPERATOR, ASPHALT SPREADER RAD ERIC documented in this encounter Visit Diagnoses Diagnosis Left breast mass Lump or mass in breast Left breast mass Lump or mass in breast documented in this encounter Care Teams Window Framer Relationship Specialty Start Date End Date Kristine Mendez MD PCP - General 01/01/14 [address] [address] [address] documented as of this encounter
--- OUTSIDE RECORDS SUMMARY | 2022-01-09 07:07 | XMS_ITS | Encounter Summary ---
:1985 Author Organization [facility] Address [address] [place] [address] Care Team Providers Name Role Phone Kristine Mendez MD Primary Care Provider Reason for Visit Reason Comments BREAST LUMP Encounter Details Date Type Department Care Team Description 05/23/2019 Nurse Triage [facility] Tiana Mcfarlane, DO BREAST LUMP Services-[employer]IONS ARCHITECT [address] [facility] Ad [address] [place] [address], [address] [place] [address] [place] [address] [phone] Social History Tobacco Use Types Packs/Day Years [...] Disposition ??? Breast lump Protocols used: BREAST [id number] Non-tender, dime sized, slightly mobile breast lump at 12:00 slightly above areola in left breast. First noticed last night. No fam hx of breast cancer. Pt denies hx of benign breast lumps but specification writer noticed in hx in same breast. Denies redness, warmth, nipple discharge or flaking of nipple. Appointment made per protocol. Problem list reviewed as related to this call. Future Appointments Provider Department Center 05/23/2019 10:30 AM Madeleine Page APRN, PSYCHOMETRIST [facility]-[employer]UT[employer] ARCHITECT PN CARR FR LOP CUTTER documented in this encounter Plan of Treatment Not on filedocumented as of this encounter Visit Diagnoses Not on filedocumented in this encounter Care Teams Mixing Plant Operator Relationship Specialty Start Date End Date Kristine Mendez MD PCP - General 01/01/[address] [place] [address] documented as of this encounter
--- OUTSIDE RECORDS SUMMARY | 2022-01-09 07:07 | XMS_ITS | Encounter Summary ---
:1985 Author Organization [facility] Address [address] [place] [address] Care Team Providers Name Role Phone Unavailable Primary Care Provider Unavailable Reason for Visit Reason Onset Date Comments LAB RESULTS 07/23/2012 Encounter Details Date Type Department Care Team Description 07/23/2012 Telephone Urgent Care [facility] Kirsten Quiroz NECK FITTER RESULTS [address] [facility] [place] [address] [phone] [place], [place] [address] Social History Tobacco Use [...]
--- OUTSIDE RECORDS SUMMARY | 2022-01-09 07:07 | XMS_ITS | Encounter Summary ---
:1985 Author Organization [facility] Address [address] [place] [address] Care Team Providers Name Role Phone Kristine Mendez MD Primary Care Provider Encounter Details Date Type Department Care Team Description 01/31/2019 Notes/Orders [facility] 6[address] Gaurang Carrasco MD Gastroenterology [address] [place] [address] [place] [address] [phone] Social History Tobacco Use Types Packs/Day Years [...] on filedocumented in this encounter Care Teams Sander And Buffer Relationship Specialty Start Date End Date Kristine Mendez MD PCP - General 01/01/14 [address] [address] [place] [address] documented as of this encounter
--- OUTSIDE RECORDS SUMMARY | 2022-01-09 07:07 | XMS_ITS | Encounter Summary ---
:1985 Author Organization [employer] Address [address] [place] [address] Care Team Providers Name Role Phone Kristine Mendez MD Primary Care Provider Reason for Visit Reason Comments MASS Encounter Details Date Type Department Care Team Description 01/01/2014 Office Visit [facility] Kristine Mendez, Thy elise whelan (Primary Dx); Medicine [facility] [address] [facility] [address] [place] [address] [place] [phone] Social History Tobacco Use Types Packs/Day Years [...] included. Please call the Endocrinology dept. at [phone] to schedule your appointment. Labs today Thyroid [...] about any medicines you take. This includes kwoa-rsp-ljybmcc medicines. ?? Wear a medical alert bracelet [...] Where can you learn more? Go to [email or web address].net/patiented. Enter E754 in the search box to learn more about Thyroid Nodules: After Your Visit. Last Revised: October 10, 2012 ?? [phone] [employer]. Care instructions adapted under license by your healthcare professional. If you have questions about a medical condition or this instruction, always ask your healthcare professional. 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 Smoking status: Never Smoker ??? Smokeless tobacco: Not on file ??? Alcohol Use: No Comment: rare ??? Drug Use: No ??? Sexual Activity: Partners: Male Control/ Protection: Other Topics Concern ??? Exercise Yes ??? Seat Belt Yes ??? Special Diet No ??? 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 Info from [facility] given on thyroid nodules. Orders Placed This Encounter Procedures ??? US Thyroid (Standard) ??? Thyroid Stimulating Hormone ??? Free T4 ??? Complete Blood Count W/Diff ??? Thyroid Peroxidase (Tpo) Antibody ??? Mononucleosis Screen ??? HIV Antibody ??? ENDOCRINOLOGY CONSULT ADULT (AMB) Patient Instructions Please call the Endocrinology dept. at [phone] to schedule your appointment. Labs today Thyroid [...] about any medicines you take. This includes qkhu-kkf-hgzbkcu medicines. ?? Wear a medical alert bracelet [...] Where can you learn more? Go to [email or web address].net/patiented. Enter E754 in the search box to learn more about Thyroid Nodules: After Your Visit. Last Revised: October 10, 2012 ?? [phone] [employer]. Care instructions adapted under license by your healthcare professional. If you have questions about a medical condition or this instruction, always ask your healthcare professional. [employer] disclaims any warranty or liability for your [...] nodes documented in this encounter Care Teams Deposition Reporter Relationship Specialty Start Date End Date Kristine Mendez MD PCP - General 01/01/14 [address] [address] [address] documented as of this encounter
--- OUTSIDE RECORDS SUMMARY | 2022-01-09 07:07 | XMS_ITS | Encounter Summary ---
:1985 Author Organization [facility] Address [address] [place] [address] Care Team Providers Name Role Phone Kristine Mendez MD Primary Care Provider Reason for Referral (Routine) - Closed Specialty Diagnoses / Procedures Referred By Contact Refer red To Contact Diagnoses Family history of colon cancer Gabriela Mcfarlane, DO Procedures Endoscopy, colon, diagnostic [address] [place] [address] Referral ID Status Reason Start Date Expiration Date Visits Requ ested Visits Authorized [id number] Closed 01/10/2019 04/10/2020 1 1 Reason for Visit (Routine) - Closed Specialty Diagnoses / Procedures Referred By Contact Refer red To Contact Diagnoses Family history of colon cancer Gabriela Mcfarlane, DO Procedures Endoscopy, colon, diagnostic [address] [place] [address] Referral ID Status Reason Start Date Expiration Date Visits Requ ested Visits Authorized [id number] Closed 01/10/2019 04/10/2020 1 1 Encounter Details Date Type Department Care Team Description 02/10/2019 [facility] Jefferson Carrasco histor y of Encounter Gastroenterology MD Gabriel colon cancer Endoscopy Procedures [address] [address] [place] [address] [place] [address] Social History Tobacco Use Types Packs/Day Years [...] Colonoscopy in 3 years, follow up polyps 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 The [id number]-[id number]-13 was introduced through the anus and advanced [...] previously scheduled. Procedure Code(s): --- Professional --- 58615, Colonoscopy, flexible; with removal of tumor(s), polyp(s), or other lesion(s) by snare technique 48132, Colonoscopy, flexible; with directed submucosal injection(s), any substance G0500, Moderate sedation services provided by the same physician or other qualified health women's health care nurse practitioner performing a gastrointestinal endoscopic service that sedation supports, requiring the presence of an independent trained observer to assist in the monitoring of the patient's level of consciousness and physiological status; initial 15 minutes of intra-service time; patient age 5 years or older (additional time may be reported with 42526, as appropriate) Diagnosis Code(s): --- Professional --- Z80.0, Family history of malignant neoplasm of digestive organs D12.0, Benign neoplasm of cecum CPT copyright 2018 [employer]. All rights reserved. The codes documented in this report are preliminary and upon pump mechanic review may be revised to meet current [...] turations were monitored ? continuou sly. The [id number] was ? introduce d through the anus [...] Code(s): ?? --- Professional - -- ? 94882, Co lonoscopy, flexible; with ? removal o f tumor(s), polyp(s), or ? other les ion(s) by snare technique ? 32877, Co lonoscopy, flexible; with ? directed submucosal injection(s), any ? substance ? G0500, Mo derate sedation services ? provided by the same physician or ? other [facility] health care ? professio nal [...] time may ? [place] [address], as ? appropria te) Diagnosis Code(s): ?? --- Professional - -- ? Z80.0, Fa sebastian history of malignant ? neoplasm of digestive organs ? D12.0, Be nign neoplasm of cecum CPT copyright 2018 [employer]. All rights reserved. The codes documented in this report are preliminary and upon pump mechanic review may be revised to meet current compliance requirements. Jefferson Carrasco MD 02/10/2019 2:30:24 PM This document has been electronically si gned. Number of Addenda: 0 Note Initiated On: 02/10/2019 2:51 PM ? Endoscopy Report Procedure Note Jefferson Carracso MD - 02/10/2019Formatt ing of this note might be different from the original. Patient Name: Yamilet Lora Procedure Date: 02/10/2019 2:51 PM Date of : 1985 Admit Type: Outpatient Age: 33 Note Status: Finalized Attending MD: Jefferson Carrasco MD Procedure: Colonoscopy Indications: Screening in patient at inc reased risk: Colorectal cancer in sister at age 31 Providers: Jefferson Carrasco MD Referring MD: Gabreila Mcfarlane Medicines: Midazolam 2 mg IV, Fentanyl 1 00 micrograms IV Complications: No immediate complication s. Procedure: After I obtained informed con sent, the scope was passed under direct vision. Throughout the procedure, the patient's blood pressure, pulse, and oxygen saturations were monitored continuously. The OOS-[id number] was introduced through the anus and advanced [...] previously scheduled. Procedure Code(s): --- Professional --- 24309, Colonoscopy, flexible; with removal of tumor(s), polyp(s), or other lesion(s) by snare technique 26778, Colonoscopy, flexible; with directed submucosal injection(s), any substance G0500, Moderate sedation services provided by the same physician or other qualified health women's health care nurse practitioner performing a gastrointestinal endoscopic service that sedation supports, requiring the presence of an independent trained observer to assist in the monitoring of the patient's level of consciousness and physiological status; initial 15 minutes of intra-service time; patient age 5 years or older (additional time may be reported with 83924, as appropriate) Diagnosis Code(s): --- Professional --- Z80.0, Family history of malignant neoplasm of digestive organs D12.0, Benign neoplasm of cecum CPT copyright 2018 [employer]. All rights reserved. The codes documented in this report are preliminary and upon pump mechanic review may be revised to meet current compliance requirements. Jefferson Carrasco MD 02/10/2019 2:30:24 PM This document has been electronically si gned. Number of Addenda: 0 Note Initiated On: 02/10/2019 2:51 PM Endoscopy Report Gabriela Mcfarlane DO PN GI PROCEDURE ORDERABLES Performing Organization Address City/State/ZIP Code Phon e Number GI (PROVATION) GI (PROVATION) [place], [place] Surgical Path - GI (02/10/2019 2:24 PM CDT) Component Value Ref Test Analysis Performed At [facility] gist Range Method Time Signature Case Report Surgical Pathology ?Case: [id number] ? 02/13/2019 [facility] Authorizing Provider: ??Jefferson Vogt MD ? Collected: ? 02/10/2019 02:24 PM ? 9:35 AM LABORATOR Y Ordering Location: ? [facility] ? Received: ?02/10/2019 04:34 PM ? CDT ? Gastroenterology Endoscopy ? Procedures ? Pathologist: ? Jesse Villa MD ? Specimen: ?Colon, cecum, CECUM ? FINAL A. Colon, cecum, CECUM, polypectomy: [facility] Electronically DIAGNOSIS ?? Sessile serrated adenoma (s) 9:35 AM LABORATORY signed by CDT Gabriel Villa MD on 01/28 at 9:35 AM Gross A. The specimen is received in formalin and labeled with the patient's name and Colon, cecum, CECUM. The specimen consists of three landeros, flattened tissue fragments ranging from 0.3 cm to 1.5 cm in gre 02/13/2019 [facility] Description atest dimension. The largest fragment is bisected and the tissue is entirely submitted in one block. AW 9:35 AM LABOR ATORY CDT Clinical Polyp 02/13/2019 [facility] Information 9:35 AM LABORATORY CDT Microscopic Microscopic 02/13/2019 [facility] Description examination is 9:35 AM LABORATORY performed. CDT Embedded 02/13/2019 [facility] Images 9:35 AM LABORATORY CDT Specimen Anatomical Collection Method Collection Time Receive d Time (Source) Location / / Volume Laterality Tissue COLON STRUCTURE / 02/10/2019 2:24 PM 01/28 4:34 Unknown CDT PM CDT Jefferson Carrasco MD LAB PATHOLOGY Performing Organization Address City/State/ZIP Code Phon e Number [facility] [address] [place] [address] documented in this encounter Visit Diagnoses Diagnosis [...] 0203 documented in this encounter Care Teams Business Job Titles Relationship Specialty Start Date End Date Kristine Mendez MD PCP - General 01/01/14 [address] [address] [place] [address] documented as of this encounter
--- OUTSIDE RECORDS SUMMARY | 2022-01-09 07:07 | XMS_ITS | Encounter Summary ---
:1985 Author Organization [employer] Address [address] [place] [address] Care Team Providers Name Role Phone Kristine Mendez MD Primary Care Provider Reason for Visit Reason Comments Procedure Encounter Details Date Type Department Care Team Description 01/27/2014 Initial Consult [facility] [address] Leann Magaña ntoxic uninodular goiter (Primary Dx); Endocrinology MD Eduar Polycystic ovaries [address] [facility] [address] [facility] [place] [phone] Social History Tobacco Use Types Packs/Day Years [...] you in 6 months. You can call [phone] to set up an appointment. If there [...] Filed: 02/18/142044 Note Time: 01/28/1445 Status: Signed Instrument Mechanic: Leann Magaña MD (Physician) NAME: YAMILET LORA MR#: [id number] CSN: [id number] AUTHENTICATING CLINICIAN: Leann Magaña MD CONFIRM #: [id number] LOC: 432 CLINIC PROGRESS NOTE DATE OF [...] reviewing treatment plan. RMM:MEDQ C: CONFIRM #: [id number] documented in this encounter Miscellaneous Notes Miscellaneous - 06/08/2016 3:31 PM CSTNotes Recorded by Leann Magaña MD on 01/28/2014 at 1:23 PMPoonuru pt. Please let pt know that thyroid fna was benign. RTC in 6 months as planned. STRINGER documented in this encounter Plan of Treatment [...] CDT ? FINAL CYTOLOGY REPORT Pathology #: [id number] ?Date Obtained: 01/27/2014 ? Date Received: 01/27/2014 [...] a benign adenomatoid no dule. CPT Codes: ?91276 x 1 ? End of Report Transcriptions [...] ovaries documented in this encounter Care Teams Inventory Planner Relationship Specialty Start Date End Date Kristine Mendez MD PCP - General 01/01/14 [address] [address] [id number] documented as of this encounter
--- OUTSIDE RECORDS SUMMARY | 2022-01-09 07:07 | XMS_ITS | Encounter Summary ---
:1985 Author Organization [employer] Address [address] [place] [address] Care Team Providers Name Role Phone Kristine Mendez MD Primary Care Provider Reason for Referral (Routine) - Closed Specialty Diagnoses / Procedures Referred By Contact Refer red To Contact Diagnoses Family history of colon cancer aGbriela Mcfarlane DO Procedures Endoscopy, colon, diagnostic [address] [place] [address] Referral ID Status Reason Start Date Expiration Date Visits Requ ested Visits Authorized [id number] Closed 01/10/2019 04/10/2020 1 1 Reason for Visit Reason Comments Annual Exam Encounter Details Date Type Department Care Team Description 01/10/2019 Office Visit [facility] Gabriela Mcfarlane physical exam (Primary Dx); Services-RELIEF WORKER M, DO Pap smear for cervical cancer screening; [address] [facility], [address] Robles gu history of colon cancer [address] [place] [address] [phone] (Wo rk) Social History Tobacco Use Types [...] DO - 01/10/2019 10:00 AM CDT [facility] Chief Complaint: Routine health [...] Procedure Laterality Date ??? 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 continuou sly. The [id number] was ? introduce d through the anus [...] Code(s): ?? --- Professional - -- ? 42683, Co lonoscopy, flexible; with ? removal o f tumor(s), polyp(s), or ? other les ion(s) by snare technique ? 11198, Co lonoscopy, flexible; with ? directed submucosal injection(s), any ? substance ? G0500, Mo derate sedation services ? provided by the same physician or ? other [facility] ? professio nal performing a [...] time may ? [place] [address], as ? appropria te) Diagnosis Code(s): ?? --- Professional - -- ? Z80.0, Fa sebastian history of malignant ? neoplasm of digestive organs ? D12.0, Be nign neoplasm of cecum CPT copyright 2018 [employer]. All rights reserved. The codes documented in this report are preliminary and upon clinical trial educator review may be revised to meet current [...] and oxygen saturations were monitored continuously. The [id number] was introduced through the anus and advanced [...] previously scheduled. Procedure Code(s): --- Professional --- 63307, Colonoscopy, flexible; with removal of tumor(s), polyp(s), or other lesion(s) by snare technique 78881, Colonoscopy, flexible; with directed submucosal injection(s), any substance G0500, Moderate sedation services provided by the same physician or other qualified health intensive care unit nurse performing a gastrointestinal endoscopic service that sedation supports, requiring the presence of an independent trained observer to assist in the monitoring of the patient's level of consciousness and physiological status; initial 15 minutes of intra-service time; patient age 5 years or older (additional time may be reported with 71346, as appropriate) Diagnosis Code(s): --- Professional --- Z80.0, Family history of malignant neoplasm of digestive organs D12.0, Benign neoplasm of cecum CPT copyright 2018 [employer]. All rights reserved. The codes documented in this report are preliminary and upon clinical trial educator review may be revised to meet current compliance requirements. Jefferson Carrasco MD 02/10/2019 2:30:24 PM This document has been electronically si gned. Number of Addenda: 0 Note Initiated On: 02/10/2019 2:51 PM Endoscopy Report Gabriela GOL[facility]ERG [facility] PROCEDURE ORDERABLES Performing Organization Address City/State/ZIP Code Phon e Number GI (PROVATION) GI (PROVATION) [place], [place] HPV with 16 18 Genotyping (01/10/2019 10:37 AM CDT) [facility] Method Time Signature HPV High Risk Not Detected Not detected 01/14/2019 [facility] Type 16 PCR 2:10 PM CDT LABORATORY Comment: F;NONE HPV High Risk Not Detected Not Detected 01/14/2019 2:10 PM [facility] Type 18 PCR CDT Comment: F;NONE HPV High Risk Not Detected Not detected 01/14/2019 2:10 PM [facility] Other Than CDT 16/18 Comment: F;NONE Specimen Anatomical Collection Method Collection Time Receive d Time (Source) Location / / Volume Laterality Cervical Broom ENTIRE ENDOCERVIX 01/10/2019 10:37 12/29 / Unknown AM CDT 10:42 AM CDT Narrative [facility] - 01/14/2019 2:10 P M CDT [...] and its pe rformance characteristics determined by [employer] [facility]. It has not been cleared or approved by the FDA. The laboratory ??is required under CLIA as qualified to perform high-complexity kim ting. This test is used for clinical purposes. It should not be regarded as investigational or for research. Gabriela Mcfarlane DO LAB_1 Performing Organization Address City/State/ZIP Code Phon e Number [facility] [address] [place] [address] PAP Test (01/10/2019 10:37 AM CDT) Component Value Ref Test Analysis Performed At [facility] Method Time Signature Case Report Pap ? Case: [id number] ? 01/16/2019 [facility] Authorizing Provider: ??Gabriela Tomlinson, DO ?Collected: ? 01/10/2019 10:37 AM ? 10:41 AM LABORATOR Y Ordering Location: ? [facility] ? Received: ?01/10/2019 10:42 AM ? CDT ? Services-RELIEF WORKER ? First Screen: ? Adrian, Paula L ? Specimen: ?Pap Test, Rou enriqueta, Cervix/Endocervix ? Pap Specimen Satisfactory for 01/16/2019 [facility] Adequacy evaluation, 10:41 AM LABORATORY endocervical/chong CDT sformation zone component present. Pap Negative for 01/16/2019 [facility] Electr onically Interpretation intraepithelial 10:41 AM LABORATOR Y signed by lesion or CDT Lisseth, malignancy Paula tuttle (NILM). 01/16/2019 at 10:41 AM Gross The specimen is 01/16/2019 [facility] Description received in 10:41 AM LABORATORY [facility] [...] false-negative reports may occur. Embedded Images 01/16/2019 [facility] 10:41 AM LABORATORY CDT Specimen Anatomical Collection Method Collection Time Receive d Time (Source) Location / / Volume Laterality Other Specimen ENTIRE ENDOCERVIX 01/10/2019 10:37 12/29 Type / Unknown AM CDT 10:42 AM CDT Comment: LMP: Patient's last menstrual p eriod was 12/05/2018. Gabriela Mcfarlane DO LAB PATHOLOGY Performing Organization Address City/State/ZIP Code Phon e Number [facility] [address] [place] [address] documented in this encounter Visit Diagnoses Diagnosis [...] tract documented in this encounter Care Teams Geography Instructor Relationship Specialty Start Date End Date Kristine Mendez MD PCP - General 01/01/14 [address] [place] [address] documented as of this encounter
--- OUTSIDE RECORDS SUMMARY | 2022-01-09 07:07 | XMS_ITS | Clinical Summary ---
:1985 Author Organization [facility] Address [address] [place] [address] Care Team Providers Name Role Phone Kristine [...] for each transition of care or referral. [facility] Allergies No known active allergies Medications No [...] Comments Blood Pressure 127/82 05/23/2019 10:30 AM MOTOR GENERATOR SET OPERATOR Pulse 103 05/23/2019 10:30 AM MOTOR GENERATOR SET OPERATOR Temperature 36.9 ??C (98.4 ??F) 05/23/2019 10:30 AM MOTOR GENERATOR SET OPERATOR Respiratory Rate 16 02/10/2019 2:45 PM CDT Oxygen Saturation 100% 02/10/2019 2:45 PM CDT Inhaled Oxygen Concentration - - Weight 63.5 kg (140 lb) 05/23/2019 10:30 AM MOTOR GENERATOR SET OPERATOR Height 177.8 cm (5' 10) 02/10/2019 1:19 [...] Phone Addre ss Type Group CIG[employer] CIGNA [id number] 2013-Present [phone] [address] [place] [address] [address] [facility] (Home) W [phone] Eduar BEYER (Work) [address] Guido, Personal/Family Self 1985 [address] [facility] ([address]) [address] [phone] Eduar TURNER (Work) [address] Guido, Personal/Family Self [phone] [facility] (Home) [place] [address] Care Teams Facility Practice Specialist Relationship Specialty Start Date End Date Kristine Mendez MD PCP - General 01/01/14 [address] [place] [address]
--- OUTSIDE RECORDS SUMMARY | 2022-01-09 07:07 | XMS_ITS | Encounter Summary ---
:1985 Author Organization [facility] Address [address] [place] [address] Care Team Providers Name Role Phone Unavailable Primary Care Provider Unavailable Encounter Details Date Type Department Care Team Description 07/21/2012 Notes/Orders [place] Kelle C Jennifer Aguilera, Cystitis [address] [facility] COMMERCIAL CREDIT LEAD, PATIENT INTAKE COORDINATOR [place], [place] [address] Social History Tobacco Use [...] UA, NO MICROSCOPIC (07/21/2012 12:10 PM CDT) [facility] [email or web address] Method Time Signature Urine Color Yellow [facility] [...] PM CDT PM CDT Jennifer Alexis APRN, PATIENT INTAKE COORDINATOR LAB_1 Performing Organization Address City/State/ZIP Code Phon e Number [facility] [phone] [address] URINE CULTURE (07/21/2012 12:10 PM CDT) Component Value Ref Test Analysis Performed At [facility] [email or web address] Range Method Time Signature Specimen Urine [facility] Description Midstream Special Unspecified [facility] Requests Culture > 100,000 [facility] col/ml Escherichia coli Report Status Final [facility] 07/23/2012 Organism > 100,000 [facility] col/ml Escherichia coli Specimen Anatomical Collection Method [...] Alexis APRN, CNP LAB_1 Performing Organization Address City/State/[facility] Code [facility] e Number [facility] [phone] [address] documented in this encounter Visit Diagnoses Diagnosis Cystitis Cystitis, unspecified documented in this encounter
--- OUTSIDE RECORDS SUMMARY | 2022-01-09 07:07 | XMS_ITS | Encounter Summary ---
:1985 Author Organization [facility] Address [address] [place] [address] Care Team Providers Name Role Phone Kristine Mendez MD Primary Care Provider Reason for Visit Reason Comments RESULTS, TEST Encounter Details Date Type Department Care Team Description 01/01/2014 Telephone [facility] Pete Mendez MD RESULTS, TEST Medicine [address] [facility] [address] [place] [address] [place] [address] [phone] Social History Tobacco Use Types Packs/Day Years [...] on filedocumented in this encounter Care Teams Precinct Commanding Officer Relationship Specialty Start Date End Date Kristine Mendez MD PCP - General 01/01/14 [address] [place] [address] documented as of this encounter
--- OUTSIDE RECORDS SUMMARY | 2022-01-09 07:07 | XMS_ITS | Encounter Summary ---
:1985 Author Organization [facility] Address [address] [place] [address] Care Team Providers Name Role Phone Kristine Mendez MD Primary Care Provider Encounter Details Date Type Department Care Team Description 04/12/2018 edith Osuna [phone] Social History Tobacco Use Types Packs/Day Years [...] ear symptoms. I sent your prescriptions to [facility] [address]. I???ve also listed a few self-care tips [...] Note: Refills: None fluticasone 50 mcg/actuation spray,suspension Whiting 1-2 spray into both nostrils once a day as needed for 30 days Note: Refills: None Sent To: [facility] [id number] [address] [place] [phone] Treatment Plan Self Care Tip Topics Ease [...] orders fluticasone (fluticasone) amoxicillin (amoxicillin) Allergies None [facility] Information [facility] [employer] We are an online clinic open 20/11. If you have any questions or comments about this visit, please call or email [email or web address] NDS KEEPER documented in this encounter Plan of Treatment Not on filedocumented as of this encounter Visit Diagnoses Not on filedocumented in this encounter Care Teams Route Clerk Relationship Specialty Start Date End Date Kristine Mendez MD PCP - General 01/01/14 [address] [place] [address] documented as of this encounter
--- OUTSIDE RECORDS SUMMARY | 2022-01-09 07:07 | XMS_ITS | Encounter Summary ---
:1985 Author Organization [facility] Address [address] [place] [address] Care Team Providers Name Role Phone Unavailable Primary Care Provider Unavailable Reason for Visit Reason Comments Refill Encounter Details Date Type Department Care Team Description 07/31/2013 Refill Apolonia Martell MD Refill [address] [place] [address] [place] [address] [phone] (Wo rk) Social History Tobacco Use Types [...] rx faxed for 28 days.Advised to call [phone] to schedule.DS Chanel Herman PA-C - 08/04/2013 [...]
--- OUTSIDE RECORDS SUMMARY | 2022-01-09 07:07 | XMS_ITS | Encounter Summary ---
:1985 Author Organization [facility] Address [address] [place] [address] Care Team Providers Name Role Phone Kristine Mendez MD Primary Care Provider Reason for Visit Procedure/Equipment (Routine) - Canceled Specialty Diagnoses / Procedures Referred By Contact Refer red To Contact Diagnoses Left breast mass Madeleine Page, SUPERVISOR CIGAR MAKING HAND, OB/GYN PHYSICIAN [place] [address] [place] [address] Referral ID Status Reason Start Date Expiration Date Visits V isits Requested Authorized [id number] Canceled 05/28/2019 08/26/2020 1 1 Encounter Details Date Type Department Care Team Description 06/03/[address] [facility] [address] Madeleine Page , Left breast mass Mammography SUPERVISOR CIGAR MAKING HAND, OB/GYN PHYSICIAN [address] [facility] [address] [place] [address] [phone] Social History Tobacco Use Types Packs/Day Years [...] breast documented in this encounter Care Teams Disability Attorney Relationship Specialty Start Date End Date Kristine Mendez MD PCP - General 01/01/[address] [place] [address] documented as of this encounter
--- OUTSIDE RECORDS SUMMARY | 2022-01-09 07:07 | XMS_ITS | Encounter Summary ---
:1985 Author Organization [employer] Address [address] [place] [address] Care Team Providers Name Role Phone Kristine Mendez MD Primary Care Provider Reason for Visit Reason Comments Follow-up Encounter Details Date Type Department Care Team Description 03/02/2014 Office Visit [facility] Apolonia Cm, Pelvic pa in in female (Primary Dx); Medicine Screening for malignant neoplasm of the cervix [address] [place] [address] [place] [address] [phone] Social History Tobacco Use Types Packs/Day Years Used Date Smoking Tobacco: Never Alcohol Use Standard Drinks/Week Comments No 0 (1 standard drink = 0.6 oz pure alcoho l) Sex Assigned at Date Recorded Not on file documented as of this encounter Last Filed Vital Signs Vital Sign Reading Time Taken Comments Blood Pressure 124/80 03/02/2014 3:55 PM PULMONARY NURSE PRACTITIONER Pulse 88 03/02/2014 3:55 PM PULMONARY NURSE PRACTITIONER Temperature - - Respiratory Rate - - Oxygen Saturation - - Inhaled Oxygen Concentration - - Weight 59 kg (130 lb) 03/02/2014 3:55 PM PULMONARY NURSE PRACTITIONER Height - - Body Mass Index 18.79 [...] up - TBD based on lab results ONARY NURSE PRACTITIONER documented in this encounter Plan of Treatment Not on filedocumented as of this encounter Procedures Procedure Name Priority Date/Time Associated Comments Diagnosis VAGINOSA DNA PROBE Routine 03/02/2014 4:20 PM Pelvic pain in R esults for this PULMONARY NURSE PRACTITIONER female procedure are i n the results section. HPV WITH 16 18 Routine 03/02/2014 4:20 PM Results for this GENOTYPING, PULMONARY NURSE PRACTITIONER procedure are i n CERVICAL/ENDOCERVICAL the re sults section. ANATOMICAL PATH Routine 03/02/2014 4:20 PM Result s for this LIQUID BASED PULMONARY NURSE PRACTITIONER procedure are i n the results section. PAP SMEAR ORDER Routine 03/02/2014 4:20 PM Screening for Resul ts for this PULMONARY NURSE PRACTITIONER malignant neoplasm procedure are in of the cervix the results section. SEXUALLY TRANSMITTED Routine 03/02/2014 4:20 PM Pelvic pain in Results for this DISEASE PROBE PULMONARY NURSE PRACTITIONER female procedure are in the results section. documented in this encounter Results VAGINOSA DNA PROBE (03/02/2014 4:20 PM PULMONARY NURSE PRACTITIONER) [facility] Method Time Signature Source Vaginal HP CONVERSION Site HP CONVERSION Vaginosis DNA No Melody HP CONVERSION Probe present Vaginosis DNA No Gardnerella HP CONVERSI ON Probe present Vaginosis DNA No Trichomonas HP CONVERSI ON Probe present Specimen (Source) Anatomical Collection Method Collection Time Re ceived Time Location / / Volume Laterality Vaginal: 03/02/2014 4:20 PM PULMONARY NURSE PRACTITIONER Apolonia Cm MD LAB_1 Performing Organization Address City/State/ZIP Code Phon e Number HP CONVERSION SEXUALLY TRANSMITTED DISEASE PROBE (03/02/2014 4:20 PM PULMONARY NURSE PRACTITIONER) Component Value Ref Test Analysis Performed At [facility] Method Time Signature Source Endocervical for HP CONVERSION molecular testing Site HP CONVERSION Chlamydia Chlamydia HP CONVERSION Trach DNA trachomatis NEGATIVE by DNA amplification GC DNA Neisseria HP CONVERSION gonorrhea NEGATIVE by DNA amplification. Specimen (Source) Anatomical Collection Method Collection Time Re ceived Time Location / / Volume Laterality Endocervical for 03/02/2014 4:20 molecular testing: PM PULMONARY NURSE PRACTITIONER Apolonia Cm MD LAB_1 Performing Organization Address City/State/ZIP Code Phon e Number HP CONVERSION Pap Smear (03/02/2014 4:20 PM PULMONARY NURSE PRACTITIONER) Specimen (Source) Anatomical Collection Method Collection Time Re ceived Time Location / / Volume Laterality 03/02/2014 4:20 PM PULMONARY NURSE PRACTITIONER Narrative HP CONVERSION - 03/18/2014 7:07 PM PULMONARY NURSE PRACTITIONER FINAL GYNECOLOGICAL CYTOLOGY REPORT Pathology #: [id number] ?Date Obtained: 03/02/2014 ? Date Received: 03/04/2014 [...] with 16 18 Genotyping (03/02/2014 4:20 PM PULMONARY NURSE PRACTITIONER) [facility] Method Time Signature HPV High Risk [...] and its pe rformance characteristics determined by [facility]. It has not been cleared or approved by [facility]. The laboratory is regulated under CLIA as qualified to perform high-complexity testing. This test is used for clinical purposes. It should not be regarded as investigational or fo r research. Specimen Anatomical Collection Method Collection Time Receive d Time (Source) Location / / Volume Laterality 03/02/2014 4:20 PM 4 4:20 PULMONARY NURSE PRACTITIONER PM PULMONARY NURSE PRACTITIONER Apolonia Cm MD LAB_1 Performing Organization Address City/State/ZIP Code Phon e Number HP CONVERSION Pap Smear Order (03/02/2014 4:20 PM PULMONARY NURSE PRACTITIONER) [facility] gist Method Time Signature Pap Smear Collected HP CONVERSION Monolayer tracking test Specimen Anatomical Collection Method Collection Time Receive d Time (Source) Location / / Volume Laterality 03/02/2014 4:20 PM 4 4:59 PULMONARY NURSE PRACTITIONER AM PULMONARY NURSE PRACTITIONER Apolonia Cm MD LAB_1 Performing Organization Address City/State/ZIP Code Phon e Number HP CONVERSION documented in this encounter Visit Diagnoses Diagnosis Pelvic pain in female - Primary Unspecified symptom associated with fema le genital organs Screening for malignant neoplasm of the cervix documented in this encounter Care Teams Electric Truck Operator Relationship Specialty Start Date End Date Kristine Mendez MD PCP - General 01/01/14 [address] [address] [place] [address] documented as of this encounter
--- OUTSIDE RECORDS SUMMARY | 2022-01-09 07:07 | XMS_ITS | Encounter Summary ---
:1985 Author Organization [facility] Address [address] [place] [address] Care Team Providers Name Role Phone Kristine Mendez MD Primary Care Provider Reason for Referral Procedure/Equipment (Routine) - Incomplete Specialty Diagnoses / Procedures Referred By Contact Refer red To Contact Diagnoses Left breast mass Madeleine Page APRN, FIBROUS WALLBOARD INSPECTOR Procedures YMM [place] [address] [place] [address] Referral ID Status Reason Start Date Expiration Date Visits V isits Requested Authorized [id number] Incomplete 05/23/2019 08/21/2020 1 1 IAL EDUCATION EDUCATIONAL ASSISTANT Procedure/Equipment (Routine) - Incomplete Specialty Diagnoses / Procedures Referred By Contact Refer red To Contact Diagnoses Left breast mass Madeleine Page APRN, FIBROUS WALLBOARD INSPECTOR Procedures YMM Mammogram Diag Bilat W 3D Brodie MM Mammogram Diag Bilat [address] [place] [address] Referral ID Status Reason Start Date Expiration Date Visits V isits Requested Authorized [id number] Incomplete 05/23/2019 08/21/2020 1 1 IAL EDUCATION EDUCATIONAL ASSISTANT Reason for Visit Reason Comments BREAST LUMP Left Encounter Details Date Type Department Care Team Description 05/23/2019 Office Visit [facility] Madeleine Page, Left breast mass (Primary Dx); Services-PIG FARMER ASAD, NAWAF Irregular menses [address], [address] [facility] [address] [place] [address] [phone] Social History Tobacco Use Types Packs/Day Years [...] Comments Blood Pressure 127/82 05/23/2019 10:30 AM SPECIAL EDUCATION EDUCATIONAL ASSISTANT Pulse 103 05/23/2019 10:30 AM SPECIAL EDUCATION EDUCATIONAL ASSISTANT Temperature 36.9 ??C (98.4 ??F) 05/23/2019 10:30 AM SPECIAL EDUCATION EDUCATIONAL ASSISTANT Respiratory Rate - - Oxygen Saturation - - Inhaled Oxygen Concentration - - Weight 63.5 kg (140 lb) 05/23/2019 10:30 AM SPECIAL EDUCATION EDUCATIONAL ASSISTANT Height - - Body Mass Index 20.09 [...] The pain is not severe and no djxg-cjc-gyeolbu medications used. This is a new symptom. [...] ??? Irritable bowel syndrome ??? [place] PSH: Past Surgical History: Procedure Laterality Date ??? WISDOM TEETH EXTRACTION Social Hx: Social History Socioeconomic History ??? Marital status: Single Spouse name: Not on file ??? Number of children: Not on file ??? Years of education: Not on file ??? Highest education level: Not on file Occupational History ??? 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 OBJECTIVE:Patient was offered a laundry worker for visit and declined. BP 127/82 (BP [...] will be addressed at apt by the [facility] radiologist and team. Irregular menses. Advised patient to schedule an infertility consult. She has been trying for 1 yearto conceive with PCOS symptoms and AMA. Dictation disclaimer: Some notes are completed with voice-recognition dictation software. Typographical errors may result. Please contact me via Alea staff message if you note any errors requiring clarification. IAL EDUCATION EDUCATIONAL ASSISTANT documented in this encounter Plan of Treatment Not on filedocumented as of this encounter Results (ABNORMAL) [facility] US Breast Lt (05/28/2019 3:07 PM SPECIAL EDUCATION EDUCATIONAL ASSISTANT) Anatomical Region Laterality Modality Breast Left Ultrasound Specimen (Source) Anatomical Collection Method Collection Time Re ceived Time Location / / Volume Laterality 05/28/2019 2:58 PM SPECIAL EDUCATION EDUCATIONAL ASSISTANT Impressions 05/28/2019 3:44 PM SPECIAL EDUCATION EDUCATIONAL ASSISTANT HISTORY: Left breast mass 12:00 p.m., 2 [...] is indeterminate. Ultrasound-guided biopsy is recommended. The [facility] will attempt to schedule [...] BI-RADS CATEGORY 4: Susp icious. Madeleine Page RAG ROOM SUPERVISOR, FIBROUS WALLBOARD INSPECTOR RAD ERIC (ABNORMAL) YMM Mammogram Diag Bilat W 3D Brodie (05/28/2019 2:16 PM SPECIAL EDUCATION EDUCATIONAL ASSISTANT) Anatomical Region Laterality Modality Breast Bilateral Mammography Specimen (Source) Anatomical Collection Method Collection Time Re ceived Time Location / / Volume Laterality 05/28/2019 2:15 PM SPECIAL EDUCATION EDUCATIONAL ASSISTANT Impressions 05/28/2019 3:44 PM SPECIAL EDUCATION EDUCATIONAL ASSISTANT HISTORY: Left breast mass 12:00 p.m., 2 [...] is indeterminate. Ultrasound-guided biopsy is recommended. The [facility] will attempt to schedule [...] BI-RADS CATEGORY 4: Susp icious. Madeleine Page RAG ROOM SUPERVISOR, FIBROUS WALLBOARD INSPECTOR RAD ERIC documented in this encounter Visit Diagnoses Diagnosis Left breast mass - Primary Lump or mass in breast Irregular menses Irregular menstrual cycle Left breast mass Lump or mass in breast Left breast mass Lump or mass in breast documented in this encounter Care Teams Design Painter Relationship Specialty Start Date End Date Kristine Mendez MD PCP - General 01/01/14 [address] [place] [address] documented as of this encounter
--- OUTSIDE RECORDS SUMMARY | 2022-01-09 07:07 | XMS_ITS | Encounter Summary ---
:1985 Author Organization [facility] Address [address] [place] [address] Care Team Providers Name Role Phone Kristine Mendez MD Primary Care Provider Reason for Visit Reason Comments LAB RESULTS Encounter Details Date Type Department Care Team Description 06/04/2019 Telephone [facility] [address] Madeleine Page, LIME KILN WORKER, LAB RESULTS Mammography BUSINESS CONSULT [address] [address] [place] [address] [place], [place] [id number] (Wo rk) Social History Tobacco Use Types [...] call with any other concerns or questions. INE CLOTH EXAMINER documented in this encounter Plan of Treatment Not on filedocumented as of this encounter Visit Diagnoses Not on filedocumented in this encounter Care Teams Supervisor Powder And Primer Canning Relationship Specialty Start Date End Date Kristine Mendez MD PCP - General 01/01/14 [address] [address] [place] [address] documented as of this encounter
--- OUTSIDE RECORDS SUMMARY | 2022-01-09 07:07 | XMS_ITS | Encounter Summary ---
:1985 Author Organization [employer] Address [address] [place] [address] Care Team Providers Name Role Phone Kristine Mendez MD Primary Care Provider Reason for Visit Reason Comments Pharyngitis x 1 week Encounter Details Date Type Department Care Team Description 04/17/2017 Office Visit [facility] e Radha Alejandra, Acute pharyngitis, unspecifi ed etiology (Primary Dx); [address] PA-C Sore throat [place] [phone] [facility] [phone] [place], [place] [id number] Social History Tobacco Use Types Packs/Day Years [...] Comments Blood Pressure 145/83 04/17/2017 8:54 AM RETAIL DELIVERY DRIVER Pulse 83 04/17/2017 8:54 AM RETAIL DELIVERY DRIVER Temperature 36.7 ??C (98 ??F) 04/17/2017 8:54 AM RETAIL DELIVERY DRIVER Respiratory Rate - - Oxygen Saturation 100% 04/17/2017 8:54 AM RETAIL DELIVERY DRIVER Inhaled Oxygen Concentration - - Weight 63.7 kg (140 lb 8 oz) 04/17/2017 8:54 AM RETAIL DELIVERY DRIVER Height - - Body Mass Index 20.3 [...] cup of warm water. ?? Take an cdkc-uva-lhpxjpr pain medicine, such as acetaminophen (Tylenol), ibuprofen (Advil, Motrin), or naproxen (Aleve). Read and follow all instructions on the label. ?? Be careful when taking xypk-pnq-xmytdjk cold or flu medicines and Tylenol at [...] may help decrease throat pain. ?? Use pefs-pzj-ddpojey throat lozenges to soothe pain. Regular cough [...] can you learn more? 1. Go to [employer] or [employer]. 2. Enter U420 in the search box. Current as of: November 26, 2015 Content Version: 11.3 ?? [id number] [employer], [employer]. Thank you so much for choosing [facility] [employer]. It was a pleasure taking care of you today! Important phone numbers: Daytime Clinic information: [phone] Appointment center: [phone] Evenings & Weekends CareLine: [phone] Urgent Care Hotline: [phone] [facility], Emergency Department [address] [place] [address] [place] DELIVERY DRIVER documented in this encounter Progress Notes Radha [...] with salt water Pt was seen at [facility] on 04/12 and had a negative rapid [...] orders and patient instructions Radha Alejandra PA-C [place] DELIVERY DRIVER documented in this encounter Plan of Treatment Not on filedocumented as of this encounter Procedures Procedure Name Priority Date/Time Associated Diagnosis Comme nts STREP GRP A, RAPID Waiting 04/17/2017 8:56 AM Sore throat Res ults for this SCREEN RETAIL DELIVERY DRIVER procedure are i n the results section. documented in this encounter Results Strep Grp A, Rapid Screen Perform a culture if negative screen? No (04/17/2017 8:56 AM RETAIL DELIVERY DRIVER) [facility] gist Method Time Signature Grp A Rapid Negative NEG [facility] Specimen Anatomical Collection Method Collection Time Receive d Time (Source) Location / / Volume Laterality 04/17/2017 8:56 AM 7 9:03 RETAIL DELIVERY DRIVER AM RETAIL DELIVERY DRIVER Narrative [facility] - 04/17/2017 9:[address] Performed at [facility] [place], [address], [place] [address] Radha Alejandra PA-C LAB_1 Performing Organization Address City/State/ZIP Code Phon e Number [facility] [phone] documented in this encounter Visit Diagnoses Diagnosis Acute pharyngitis, unspecified etiology - Primary Sore throat Acute pharyngitis documented in this encounter Care Teams Molding And Trim Installer Relationship Specialty Start Date End Date Kristine Mendez MD PCP - General 01/01/14 [address] [address] [place] [id number] documented as of this encounter
--- OUTSIDE RECORDS SUMMARY | 2022-01-09 07:07 | XMS_ITS | Encounter Summary ---
:1985 Author Organization [facility] Address [address] [place] [address] Care Team Providers Name Role Phone Kristine Mendez MD Primary Care Provider Encounter Details Date Type Department Care Team Description 03/02/2014 Lab Visit [facility] Pelvic pain in female [address] [place] [id number] Social History Tobacco Use Types Packs/Day Years [...] Routine 03/02/2014 5:00 PM Results for this TECHNICIAN TRAINEE procedure are i n the results section. URINE MICROSCOPIC Routine 03/02/2014 4:34 PM Resu lts for this TECHNICIAN TRAINEE procedure are i n the results section. URINALYSIS ROUTINE, Routine 03/02/2014 4:34 PM Pelvic pain in Results for this MICRO/CULTURE IF POS TECHNICIAN TRAINEE female procedu re are in the results section. documented in this encounter Results Urine Culture (03/02/2014 5:00 PM TECHNICIAN TRAINEE) [facility] Method Time Signature Source Urine HP CONVERSION Site HP CONVERSION Urine Culture No growth HP CONVERSION Specimen (Source) Anatomical Collection Method Collection Time Re ceived Time Location / / Volume Laterality Urine: 03/02/2014 5:00 PM TECHNICIAN TRAINEE Apolonia Cm MD LAB_1 Performing [address] [facility] Phon e Number HP CONVERSION (ABNORMAL) URINE MICROSCOPIC (03/02/2014 4:34 PM TECHNICIAN TRAINEE) [facility] Method Time Signature Urine WBC 0-2 0 - 4 HP CONVERSION Urine RBC 5-9 (A) 0 - 2 HP CONVERSION Bacteria Urine Occasional (A) HP CONVERS ION Epithelial Few HP CONVERSION Cells Specimen (Source) Anatomical Collection Method Collection Time Re ceived Time Location / / Volume Laterality Urine: 03/02/2014 4:34 PM TECHNICIAN TRAINEE Narrative HP CONVERSION - 03/02/2014 4:59 PM TECHNICIAN TRAINEE Performed at [facility], [address] [place] [address] Apolonia Cm MD LAB_1 Performing [address] [facility] Phon e Number HP CONVERSION (ABNORMAL) URINALYSIS ROUTINE, MICRO/CULTURE IF POS (03/02/2014 4:34 PM TECHNICIAN TRAINEE) [facility] Method Time Signature Urine Type Urine:clean [...] U Specific 1.020 1.005 - HP CONVERSION Urania 1.030 Urobilinogen Negative Negative HP CONVERSION Urine Specimen (Source) Anatomical Collection Method Collection Time Re ceived Time Location / / Volume Laterality Urine: 03/02/2014 4:34 PM TECHNICIAN TRAINEE Narrative HP CONVERSION - 03/02/2014 4:41 PM TECHNICIAN TRAINEE Performed at [facility], [address] [place] [address] Apolonia Cm MD LAB_1 Performing Organization [address] [facility] Phon e Number HP CONVERSION documented in this encounter Visit Diagnoses Diagnosis Pelvic pain in female Unspecified symptom associated with fema le genital organs documented in this encounter Care Teams Lumpia Wrapper Maker Relationship Specialty Start Date End Date Kristine Mendez MD PCP - General 01/01/14 [address] [place] [address] documented as of this encounter
--- OUTSIDE RECORDS SUMMARY | 2022-01-09 07:07 | XMS_ITS | Encounter Summary ---
:1985 Author Organization [facility] Address [address] [place] [address] Care Team Providers Name Role Phone Kristine Mendez MD Primary Care Provider Reason for Visit Procedure/Equipment (Routine) - Incomplete Specialty Diagnoses / Procedures Referred By Contact Refer red To Contact Diagnoses Left breast mass Madeleine Page, TELEMARKETING MANAGER, DECALER [place] [address] [place] [address] Referral ID Status Reason Start Date Expiration Date Visits V isits Requested Authorized [id number] Incomplete 05/28/2019 08/26/2020 1 1 Encounter Details Date Type Department Care Team Description 06/03/2019 Ancillary Procedure [facility] 38[address] Madeleine Page , Left breast mass Mammography TELEMARKETING MANAGER, DECALER [address] [facility] [address] [place] [address] [phone] Social History Tobacco Use Types Packs/Day Years [...] PM CST Left breast pathology fibroadenoma. LOGAN ATIBILITY TEST ENGINEER Madeleine Page APRN, CNP - 06/03/2019 2:15 PM CST Left breast biopsy pathology fibroadenoma and stromal fibrosis. Start screening mammogram at age 38.Sent [employer] message. MS-NAWAF ATIBILITY TEST ENGINEER documented in this encounter Plan of Treatment Not on filedocumented as of this encounter Procedures Procedure Name Priority Date/Time Associated Diagnosis Comme nts MM US BX BREAST LT Routine 06/03/2019 2:34 PM Left breast mass Results for this COMPATIBILITY TEST ENGINEER procedure are i n the results section. SURGICAL PATHOLOGY, Routine 06/03/2019 2:34 PM Left breast mas s Results for this BREAST COMPATIBILITY TEST ENGINEER procedure are i n the results section. documented in this encounter Results MM US Bx Breast Lt (06/03/2019 2:34 PM COMPATIBILITY TEST ENGINEER) Anatomical Region Laterality Modality Breast Left Ultrasound Specimen (Source) Anatomical Collection Method Collection Time Re ceived Time Location / / Volume Laterality 06/03/2019 2:11 PM COMPATIBILITY TEST ENGINEER Impressions 06/05/2019 10:46 AM COMPATIBILITY TEST ENGINEER ULTRASOUND GUIDED BREAST BIOPSY ? HISTORY: ??Palpable [...] ERIC Surgical Path, Breast (06/03/2019 2:34 PM COMPATIBILITY TEST ENGINEER) Component Value Ref Test Analysis Performed At [facility] gist Range Method Time Signature Case Report Surgical Pathology ?Case: [id number] ? 06/04/2019 [facility] Authorizing Provider: ??Madeleine Azevedo APRN, CNP Collected: ? 06/03/2019 02:34 PM ? 1:42 PM COMPATIBILITY TEST ENGINEER LABORATOR Y Ordering Location: ? [place] [address] ? Received: ?06/03/2019 03:50 PM ? Mammography ? Pathologist: ? Avtar Martinez MD ? Specimen: ?Breast, left, 12 o'clock ultrasound ? FINAL A. Breast, left, 12 o'clock ultrasound, biopsy: 06/04/2019 [facility] Electronically DIAGNOSIS ?? Fibroadenoma and stromal fibrosis 1:4 2 PM COMPATIBILITY TEST ENGINEER LABORATORY signed by Avtar Martinez MD has reviewed this case and concurs with t elsie diagnosis. MD Joesph on 06/04/2019 a t 1:42 PM Gross A. The specimen is received in formalin and labeled with the patient's name and Breast, left, 12 o'clock ultrasound.?? The specimen consists of 2.8 x 0.6 x 0.3 cm aggregate of multiple entangled and f 08/2019 [facility] Description ragmented landeros-yellow cores o f soft tissue.?? The specimen is inked green.?? The specimen was collected and placed in formalin at 2:33 PM, 06/03/2019.?? The specimen is entirely submitted in 1 cassette. SH 1:42 PM COMPATIBILITY TEST ENGINEER LABORATORY Clinical palpable 06/04/2019 [facility] Information 1:42 PM COMPATIBILITY TEST ENGINEER LABORATORY Microscopic Microscopic 06/04/2019 [facility] Description examination is 1:42 PM COMPATIBILITY TEST ENGINEER LABORATORY performed. Embedded 06/04/2019 [facility] Images 1:42 PM COMPATIBILITY TEST ENGINEER LABORATORY Specimen Anatomical Collection Method Collection Time Receive d Time (Source) Location / / Volume Laterality Tissue BREAST STRUCTURE / 06/03/2019 2:34 PM 07/2019 3:50 Unknown COMPATIBILITY TEST ENGINEER PM COMPATIBILITY TEST ENGINEER Madeleine Page APRN, DECALER LAB PATHOLOGY Performing Organization Address City/State/ZIP Code Phon e Number [facility] [address] [place] [address] documented in this encounter Visit Diagnoses Diagnosis Left breast mass Lump or mass in breast documented in this encounter Administered Medications Inactive Administered Medications - up to 3 most recent administrations Medication Order MAR Action Action Date Dose Rate Site lidocaine (XYLOCAINE) 1 % Given 06/03/2019 3:00 PM COMPATIBILITY TEST ENGINEER 10 mL Other injection 10 mL 10 mL, Subcutaneous, ONCE, On Sun06/03/19 at 1500, For 1 dose lidocaine-epinephrine 1 %-1:[id number] Given 06/03/2019 3:00 PM COMPATIBILITY TEST ENGINEER 6 mL Other injection 6 mL 6 mL, Subcutaneous, ONCE, On Sun06/03/19 at 1500, For 1 dose documented in this encounter Care Teams Primer Assembler Relationship Specialty Start Date End Date Kristine Mendez MD PCP - General 01/01/14 [address] [place] [address] documented as of this encounter
--- OUTSIDE RECORDS SUMMARY | 2022-01-09 07:08 | XMS_ITS | Encounter Summary ---
:1985 Author Organization [facility] Address [address] [place] [address] Care Team Providers Name Role Phone Jeri García MD Primary Care Provider Encounter Details Date Type Department Care Team Description 07/09/2008 PN Conversion Only MEREDITH CONVERSIO N Lidia Aquino APRN, [address] [place] [address] [facility] [place], [place] [address] (Wo rk) Social History [...] Comment: Patient: YAMILET DAILY Culture, Stool ?Collected: ??[id number] ??[id number] Source: Stool ? Processed: ?2055 ? SENS Final Report ------ ?[id number] ??[id number] No Salmonella, Shigella, Campylobacter o r E coli O157 isolated Culture screened for Aeromonas, Plesiomo hung and Vibrio with negative results. If Yersinia is suspected, please submit a second culture and request for this organism. Specimen (Source) Anatomical Collection Method Collection Time Re ceived Time Location / / Volume Laterality 07/09/2008 4:36 PM CDT Lidia Aquino APRNNAWAF LAB_1 Performing Organization Address City/[facility] Code Phon e Number HP CONVERSION Mononucleosis Screen (07/09/2008 2:50 PM CDT) [email or web address] Method Time Signature Infectious Negative Negative HP CONVERSION Mononucleosis Screen Specimen (Source) Anatomical Collection Method Collection Time Re ceived Time Location / / Volume Laterality 07/09/2008 2:50 PM CDT Lidia Aquino APRNNAWAF LAB_1 Performing Organization Address [facility] Code Phon e Number HP CONVERSION (ABNORMAL) Complete Blood Count-W/Diff (07/09/2008 2:50 PM CDT) [email or web address] Method Time Signature White Blood Cell 5.4 [...] - HP CONVERSION Hemoglobin Conc 36.5 gm/dL Starke RDW 12.3 11.0 - HP CONVERSION 15.0 [...] Aquino NAWAF KAMARA LAB_1 Performing Organization Address [facility] Phon e Number HP CONVERSION Creatinine / GFR (07/09/2008 2:50 PM CDT) athologist Signature Creatinine 0.9 0.4 - 1.3 HP CONVERSION Serum mg/dL Est GFR >60 >60 HP CONVERSION Am Comment: -Iraqi and Wzb-Mkuhgbe-Nudxuni n reference range units: mL/min/1.73m2 Normal>60, moderate [...] Kenia KAMARA CNP LAB_1 Performing Organization Address [facility] Phon e Number HP CONVERSION Electrolytes (NA, [...] Kenia KAMARA CNP LAB_1 Performing Organization Address [facility] Phon e Number HP CONVERSION Parvovirus B19 [...] of specific IgM antibodi es. Performed at [facility] [address] [place] [address] 8 Specimen (Source) Anatomical Collection Method Collection Time Re ceived Time Location / / Volume Laterality 07/09/2008 2:50 PM CDT Lidia Aquino APRN, CNP LAB_1 Performing Organization Address [facility] Phon e Number HP CONVERSION Hepatitis B Surface Antibody (07/09/2008 2:50 PM CDT) Analysis Performed At Patho logist Time Signature Hep B Surf Ab Non Reac Non Reac HP CONVERSION Specimen (Source) Anatomical Collection Method Collection Time Re ceived Time Location / / Volume Laterality 07/09/2008 2:50 PM CDT Lidia Aquino APRN, CNP LAB_1 Performing Organization Address [facility] Phon e Number HP CONVERSION Hep B Surface Antigen, No Reflex (07/09/2008 2:50 PM CDT) Analysis Performed At [facility] Time [facility] Hep B Surf Ag Negative Negative HP CONVERSION Specimen (Source) Anatomical Collection Method Collection Time Re ceived Time Location / / Volume Laterality 07/09/2008 2:50 PM CDT Lidia Kenia KAMARA CNP LAB_1 Performing Organization Address [facility] Phon e Number HP CONVERSION Urine Culture (07/09/2008 2:32 PM CDT) Analysis Performed At [facility] Time [facility] Urine Culture SEE TEXT HP CONVERSION Comment: Patient: YAMILET DAILY Culture, Urine ?Collected: ??[id number] ??[id number] Source: Clean Ca ?Processed: ??[id number] ??[id number] ? 1V Final Report ------ ?[id number] ??[id number] <10,000 CFU/mL gram negative andrez No further workup Specimen (Source) Anatomical Collection Method Collection Time Re ceived Time Location / / Volume Laterality 07/09/2008 2:32 PM CDT Lidia Kenia KAMARA CNP LAB_1 Performing Organization Address [facility] Phon e Number HP CONVERSION (ABNORMAL) Urinalysis Routine(Micro If Pos) (07/09/2008 2:32 PM CDT) [facility] Method Time Signature Turbidity Clear No [...] Specific 1.015 1.005 - 25 HP CONVERSION [place] Specimen (Source) Anatomical Collection Method Collection Time Re ceived Time Location / / Volume Laterality 07/09/2008 2:32 PM CDT Lidia Aquino APRN, CNP LAB_1 Performing Organization Address City/[facility]/ZIP Code Phon e Number HP CONVERSION (ABNORMAL) Urinalysis Microscopic (07/09/2008 2:32 PM CDT) [facility] Method Time Signature White Blood 0-2/HPF [...] on filedocumented in this encounter Care Teams Surgery Scheduling Coordinator Relationship Specialty Start Date End Date Jeri García MD PCP - General 08/02/10 09/06/11 [address], [place] [address] documented as of this encounter
--- OUTSIDE RECORDS SUMMARY | 2022-01-09 07:08 | XMS_ITS | Encounter Summary ---
:1985 Author Organization [facility] Address [address] [place] [address] Care Team Providers Name Role Phone Jeri García MD Primary Care Provider Encounter Details Date Type Department Care Team Description 06/23/2005 Office Visit [facility] 3800 Twila Collier MD Dermatology 3800 [facility] [facility] [place] [address] [place], [place] [address] [phone] Social History Tobacco Use Types Packs/Day Years [...] 1140 Note Time: 06/23/05 0001 Status: Signed Arnp: Twila Collier MD (Physician) NAME: YAMILET DAILY MR: [id number] ACCT: [id number] VISIT: [id number] DICTATING CLINICIAN: TWILA COLLIER MD JOB: [id number] CLINIC PROGRESS NOTE DATE OF VISIT: 06/23/2005 SUBJECTIVE: Swyryc-ynp-ehgi-old female presents in followup for acne. I [...] follow up with me in two months. RSH:[id number] C: 06/23/05 12:15 DOCUMENT: [id number] EM SAFETY MANAGER documented in this encounter Plan of Treatment Not on filedocumented as of this encounter Visit Diagnoses Not on filedocumented in this encounter Care Teams Motorcycle Racer Relationship Specialty Start Date End Date Jeri García MD PCP - General 08/02/10 09/06/11 [address] [place] [address] documented as of this encounter
--- OUTSIDE RECORDS SUMMARY | 2022-01-09 07:08 | XMS_ITS | Encounter Summary ---
:1985 Author Organization [facility] Address [address] [place] [address] Care Team Providers Name Role Phone Megan García MD Primary Care Provider Encounter Details Date Type Department Care Team Description 05/23/2004 Office Visit Megan Malcolm MD [address] [place] [address] [place] [address] [phone] (Wo rk) Social History Tobacco Use Types [...] 0350 Note Time: 05/23/04 0001 Status: Signed Patient Observer: Megan García MD (Physician) NAME: YAMILET DAILY MR: [id number] ACCT: [id number] VISIT: [id number] DICTATING CLINICIAN: MEGAN GARCÍA MD JOB: [id number] CLINIC PROGRESS NOTE DATE OF VISIT: 05/23/2004 SUBJECTIVE: : 1985. REASON FOR VISIT: Acne. Dixsfq-bea-aajz-old here concerned about a number of things [...] it there. 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 CURRENT MEDICATIONS: Azelex. ADR/ALLERGIES: SHE HAS NO [...] she becomes sexually active. PLAN: See assessment. SP:[id number] C: 05/23/04 15:05 DOCUMENT: [id number] TMENT TECHNICIAN documented in this encounter Plan of Treatment Not on filedocumented as of this encounter Visit Diagnoses Not on filedocumented in this encounter Care Teams Redrying Machine Operator Relationship Specialty Start Date End Date Megan García MD PCP - General 08/02/10 09/06/11 [address] [place] [address] documented as of this encounter
--- OUTSIDE RECORDS SUMMARY | 2022-01-09 07:08 | XMS_ITS | Encounter Summary ---
:1985 Author Organization [facility] Address [address] [place] [address] Care Team Providers Name Role Phone Megan García MD Primary Care Provider Encounter Details Date Type Department Care Team Description 07/28/2004 Office Visit Megan Malcolm MD [facility] [address] [facility] [place] [address] [place] [address] [phone] (Wo rk) Social History Tobacco Use Types Packs/Day Years Used Date Smoking Tobacco: Never Assessed Sex Assigned at Date Recorded Not on file documented as of this encounter Last Filed Vital Signs Vital Sign Reading Time Taken Comments Blood Pressure 132/86 07/28/2004 2:17 PM MANAGER WORK Pulse 80 07/28/2004 2:17 PM MANAGER WORK Temperature - - Respiratory Rate - - Oxygen Saturation - - Inhaled Oxygen Concentration - - Weight 54.4 kg (119 lb 15.9 oz) 07/28/2004 2:17 PM MANAGER WORK C: 54.4kg Height - - Body Mass Index - - documented in this encounter Progress Notes Megan García MD - 07/28/2004 12:01 AM CST Progress Notes signed by Megan García MD at 08/01/04 0742 Author: Megan García MD Service: (none) Author Type: Physician Filed: 08/19/10 0510 Note Time: 07/28/04 0001 Status: Signed Bathhouse Attendant: Megan García MD (Physician) NAME: YAMILET DAILY MR: [id number] ACCT: [id number] VISIT: [id number] DICTATING CLINICIAN: MEGAN GARCÍA MD JOB: [id number] CLINIC PROGRESS NOTE DATE OF VISIT: 07/28/2004 [...] return here in two to three months. SP:[id number] C: 07/29/04 07:48 DOCUMENT: [id number] documented in this encounter Plan of Treatment Not on filedocumented as of this encounter Visit Diagnoses Not on filedocumented in this encounter Care Teams Route Aide Relationship Specialty Start Date End Date Megan García MD PCP - General 08/02/10 09/06/11 [address] [place] [address] documented as of this encounter
--- OUTSIDE RECORDS SUMMARY | 2022-01-09 07:08 | XMS_ITS | Encounter Summary ---
:1985 Author Organization [employer] Address [address] [place] [address] Care Team Providers Name Role Phone Unavailable Primary Care Provider Unavailable Reason for Visit Reason Comments Nausea Abdominal Pain Encounter Details Date Type Department Care Team Description [facility] ([facility]inary [facility] ) (Primary Dx[facility] [address] Akins PA-C Abdominal pain; [place] [address] [address] Nausea alone [phone] [place] [id number] Social History Tobacco Use Types Packs/Day Years Used Date Smoking Tobacco: Never Alcohol Use Standard Drinks/Week Comments No 0 (1 standard drink = 0.6 oz pure alcoho l) Sex Assigned at Date Recorded Not on file documented as of this encounter Last Filed Vital Signs Vital Sign Reading Time Taken Comments Blood Pressure 124/86 06/26/2012 10:55 AM FURNACE CLEANER Pulse 96 06/26/2012 10:55 AM FURNACE CLEANER Temperature 36.6 ??C (97.9 ??F) 06/26/2012 10:55 AM FURNACE CLEANER Respiratory Rate - - Oxygen Saturation - - Inhaled Oxygen Concentration - - Weight 55.8 kg (123 lb) 06/26/2012 10:55 AM FURNACE CLEANER Height - - Body Mass Index 18.03 [...] Rico Hester PA-C - 06/26/2012 12:06 PM FURNACE CLEANER 18-year-old female patient presents with four-day history [...]
--- OUTSIDE RECORDS SUMMARY | 2022-01-09 07:08 | XMS_ITS | Encounter Summary ---
:1985 Author Organization [employer] Address [address] [place] [address] Care Team Providers Name Role Phone Unassigned, Provider Primary Care Provider Unavailable Reason for Visit Reason Comments CONGESTION Encounter Details Date Type Department Care Team Description 06/27/2008 Office Visit [facility] [place] (Primary Dx); [place] Pharyngitis [address] [place], [place] [address] Social History Tobacco Use Types Packs/Day Years Used Date Smoking Tobacco: Never Alcohol Use Standard Drinks/Week Comments No 0 (1 standard drink = 0.6 oz pure alcoho l) Sex Assigned at Date Recorded Not on file documented as of this encounter Last Filed Vital Signs Vital Sign Reading Time Taken Comments Blood Pressure 120/80 06/27/2008 2:20 PM SAFETY ENGINEER PRESSURE VESSELS Pulse 78 06/27/2008 2:15 PM SAFETY ENGINEER PRESSURE VESSELS Temperature 36.6 ??C (97.8 ??F) 06/27/2008 2:15 PM SAFETY ENGINEER PRESSURE VESSELS Respiratory Rate 18 06/27/2008 2:15 PM SAFETY ENGINEER PRESSURE VESSELS Oxygen Saturation - - Inhaled Oxygen Concentration - - Weight 54.4 kg (120 lb) 06/27/2008 2:15 PM SAFETY ENGINEER PRESSURE VESSELS Height 176.5 cm (5' 9.5) 06/27/2008 2:15 PM SAFETY ENGINEER PRESSURE VESSELS Body Mass Index 17.47 06/27/2008 2:15 PM SAFETY ENGINEER PRESSURE VESSELS documented in this encounter Progress Notes Halima Jimenez - 06/27/2008 2:54 PM CST This office note has been dictated. Halima Jimenez MD TY ENGINEER PRESSURE VESSELS Halima Jimenez - 06/27/2008 12:00 AM SAFETY ENGINEER PRESSURE VESSELS Chief Complaint: Congestion. Subjective: Patient is a [...] a Mucinex with a cough suppressant. Objective: Xtnttd-dwaf-ixyl-old female who is awake, cooperative. She is [...] pharyngitis. Plan: Recommend the patient continue using dkzy-qxg-neubzcz medications, get lots of rest, take some fluids. If her throat culture is positive, will notify her and start her on antibiotic. At this time, I think it is more viral and if she has increasing symptoms, she can follow up with the primary doctor. P / A [facility] cc: TY ENGINEER PRESSURE VESSELS documented in this encounter Plan of Treatment Not on filedocumented as of this encounter Procedures Procedure Name Priority Date/Time Associated Diagnosis Comme nts STREP GRP A, RAPID Waiting 06/27/2008 2:21 PM Pharyngitis Res ults for this SCREEN SAFETY ENGINEER PRESSURE VESSELS procedure are i n the results section. documented in this encounter Results STREP GRP A, RAPID SCREEN (06/27/2008 2:21 PM SAFETY ENGINEER PRESSURE VESSELS) [facility] Method Time Signature Grp A Rapid Negative [facility] Screen Grp A Culture Negative [facility] Final Specimen Anatomical Collection Method Collection Time Receive d Time (Source) Location / / Volume Laterality 06/27/2008 2:21 PM 200 9 2:30 SAFETY ENGINEER PRESSURE VESSELS PM SAFETY ENGINEER PRESSURE VESSELS Halima Jimenez MD LAB_1 Performing Organization Address City/State/ZIP Code Phon e Number [facility] [phone] [facility] [address] [address] documented in this encounter Visit Diagnoses Diagnosis Acute URI - Primary Acute upper respiratory infections of un specified site Pharyngitis Acute pharyngitis documented in this encounter Care Teams Insurance Defense Attorney Relationship Specialty Start Date End Date Unassigned, Provider PCP - General 01/31/00 08/01/10 [address] [place] [address] documented as of this encounter
--- OUTSIDE RECORDS SUMMARY | 2022-01-09 07:08 | XMS_ITS | Encounter Summary ---
:1985 Author Organization [facility] Address [address] [place] [address] Care Team Providers Name Role Phone Jeri García MD Primary Care Provider Reason for Visit Reason Comments Other Encounter Details Date Type Department Care Team Description 03/01/2005 Telephone [facility], Message Other [address] [place] [address] Social History Tobacco Use Types Packs/Day Years Used Date Smoking Tobacco: Never Assessed Sex Assigned at Date Recorded Not on file documented as of this encounter Progress Notes Center, Message - 03/01/2005 3:45 PM CST Phone Note filed by Newsela at 08/15/102200 Author: Newsela Service: (none) Author Type: (none) Filed: 08/15/102200 Note Time: 03/01/051544 Status: Signed [employer] Driver: Newsela MESSAGE TO CARE TEAM NAME OF CALLER: anika Yamilet Goldman NAME OF CLINICIAN: Dr García MESSAGE: Pt is calling for a referral to dermatology. Pt is requesting a call-back either way to let her know if this can be done. CALL BACK PHONE #: [phone], cell BEST TIME TO CALL BACK: anytime Is it OK to leave detailed message on voicemail? yes Created on [id number] 3:45pm by PAULA VILLALTA On [id number] 4:09pm XAVIER HASKINS wrote: Referral for what condition? Acknowledged by XAVIER HASKINS on 2Nov 4:09pm On [id number] 4:17pm APRIL HOLLIDAY wrote: Pt would like to see Dermatology regarding ongoing acne. On [id number] 4:37pm XAVIER HASKINS wrote: OK to see [facility] for acne Acknowledged by XAVIER HASKINS on 2Nov05 4:37pm On [id number] 4:46pm RADHA PIRES wrote: Pt notified and will make appointment with derm. R PROJECT MANAGER documented in this encounter Plan of Treatment Not on filedocumented as of this encounter Visit Diagnoses Not on filedocumented in this encounter Care Teams Room Service Attendant Relationship Specialty Start Date End Date Jeri García MD PCP - General 08/02/10 09/06/[address] [place] [address] documented as of this encounter
--- OUTSIDE RECORDS SUMMARY | 2022-01-09 07:08 | XMS_ITS | Encounter Summary ---
:1985 Author Organization [facility] Address [address] [place] [address] Care Team Providers Name Role Phone Jeri García MD Primary Care Provider Reason for Visit Reason Comments Other Encounter Details Date Type Department Care Team Description 04/26/2005 Telephone [facility] [address] [facility], Message Other [address] [place] [address] [place], [place] [address] Social History Tobacco Use Types Packs/Day Years Used Date Smoking Tobacco: Never Assessed Sex Assigned at Date Recorded Not on file documented as of this encounter Progress Notes Conversion, [facility] - 04/26/2005 11:49 AM CST Phone Note filed by [facility] Conversion at 08/15/102329 Author: [facility] Conversion Service: (none) Author Type: (none) Filed: 08/15/102329 Note Time: 04/26/05 1149 Status: Signed Signal Tower Operator: Imr Conversion Benzaclin not covered per pt..can you try a P.A? Has HP..uses [facility] in [place] [phone] Created on 26Apr2005 11:49am by ABAD CHRISTINA On 26Apr2005 12:54pm GERARDO COLLIER wrote: Deep available? Acknowledged by GERARDO COLLIER on 12:54pm On 26Apr2005 3:01pm JACKELYN FERMIN wrote: going to send prior auth for Benzaclin. Acknowledged by JACKELYN FERMIN on 3:01pm Acknowledged by ABAD CHRISTINA on 3:39pm On 24Aug2005 9:12am PRABHJOT VARGAS wrote: Prior auth for Benzaclin was denied. ION ENGINEER MAIN LINE documented in this encounter Plan of Treatment Not on filedocumented as of this encounter Visit Diagnoses Not on filedocumented in this encounter Care Teams Cash Posting Representative Relationship Specialty Start Date End Date Jeri García MD PCP - General 08/02/10 09/06/[address] [place] [address] documented as of this encounter
--- OUTSIDE RECORDS SUMMARY | 2022-01-09 07:08 | XMS_ITS | Encounter Summary ---
:1985 Author Organization [facility] Address [address] [place] [address] Care Team Providers Name Role Phone Megan García MD Primary Care Provider Reason for Visit Reason Comments Other Encounter Details Date Type Department Care Team Description 11/03/2004 Telephone [facility] [employer] are family too [place], Message Other [address] [place] [address] Social History Tobacco Use Types Packs/Day Years Used Date Smoking Tobacco: Never Assessed Sex Assigned at Date Recorded Not on file documented as of this encounter Progress Notes Khushi Gibson - 11/03/2004 10:31 AM CDT Phone Note filed by Khushi Gibson RN at 08/15/101912 Author: Khushi Gibson RN Service: (none) Author Type: (none) Filed: 08/15/101912 Note Time: 11/03/04 1031 Status: Signed Consulting Engineer: Khushi Gibson RN (Registered Nurse) Pt saw [...] helped. Let pt know your recommendations at [phone]. Pharm is [facility] in [place] [phone]. Created on 03Nov2004 10:31am by KHUSHI GIBSON On 03Nov2004 12:35pm MEGAN GARCÍA wrote: we could try doxycyline instead, 100 mg dialy #30, 5 refills, to see if it works as well but without the discoloration. Acknowledged by MEGAN GARCÍA on 12:35pm On 03Nov2004 1:23pm BOBBY CENTENO wrote: Rx called in as above, and left message on pt voice mail. VERY AND MAIL SORTER documented in this encounter Plan of Treatment Not on filedocumented as of this encounter Visit Diagnoses Not on filedocumented in this encounter Care Teams Erp Project Manager Relationship Specialty Start Date End Date Megan García MD PCP - General 08/02/10 09/06/11 [address] [place] [address] documented as of this encounter
--- OUTSIDE RECORDS SUMMARY | 2022-01-09 07:08 | XMS_ITS | Encounter Summary ---
:1985 Author Organization [facility] Address [address] [place] [address] Care Team Providers Name Role Phone Jeri García MD Primary Care Provider Encounter Details Date Type Department Care Team Description 04/19/2005 Office Visit [facility] 3800 Twila Collier MD Dermatology 3800 [facility] [address] [facility] [place] [address] [place], [place] [address] [phone] Social History Tobacco Use Types Packs/Day Years [...] 1020 Note Time: 04/19/05 0001 Status: Signed Staff Counsel: Twila Collier MD (Physician) NAME: YAMILET DAILY MR: [id number] ACCT: [id number] VISIT: [id number] DICTATING CLINICIAN: TWILA COLLIER MD JOB: [id number] CLINIC PROGRESS NOTE DATE OF VISIT: 04/19/2005 [...] a half months. CC: MARIANO BRAUN PA-C [facility]:[id number] C: 04/19/05 13:44 DOCUMENT: [id number] RIALS BUYER documented in this encounter Plan of Treatment Not on filedocumented as of this encounter Visit Diagnoses Not on filedocumented in this encounter Care Teams Digital Advertising Specialist Relationship Specialty Start Date End Date Jeri García MD PCP - General 08/02/10 09/06/[address] [place] [address] documented as of this encounter
--- OUTSIDE RECORDS SUMMARY | 2022-01-09 07:08 | XMS_ITS | Encounter Summary ---
:1985 Author Organization [facility] Address [address] [place] [address] Care Team Providers Name Role Phone Unavailable Primary Care Provider Unavailable Encounter Details Date Type Department Care Team Description 07/01/[address] [place] [address] [place], [place] [address] Social History Tobacco Use Types Packs/Day Years [...]
--- OUTSIDE RECORDS SUMMARY | 2022-01-09 07:08 | XMS_ITS | Encounter Summary ---
:1985 Author Organization [facility] Address [address] [place] [address] Care Team Providers Name Role Phone Megan García MD Primary Care Provider Reason for Visit Reason Comments Other Encounter Details Date Type Department Care Team Description 06/08/2004 Telephone [employer], Message Other [address] [place] [address] Social History Tobacco Use Types Packs/Day Years Used Date Smoking Tobacco: Never Assessed Sex Assigned at Date Recorded Not on file documented as of this encounter Progress Notes Khushi Gibson - 06/08/2004 11:47 AM CST Phone Note filed by Khushi Gibson RN at 08/15/10 0097 Author: Khushi Gibson RN Service: (none) Author Type: (none) Filed: 08/15/10 8735 Note Time: 06/08/04 1147 Status: Signed Driver'S License Examiner: Khushi Gibson RN (Registered Nurse) Pt saw [...] try something else. Pharmacy [phone]. She gets one month at a time. Pt is at [phone] and you can LM. Created on 08Jun2004 [...] on filedocumented in this encounter Care Teams Perinatal Director Relationship Specialty Start Date End Date Megan García MD PCP - General 08/02/10 09/06/[address] [place] [address] documented as of this encounter
--- OUTSIDE RECORDS SUMMARY | 2022-01-09 07:08 | XMS_ITS | Encounter Summary ---
:1985 Author Organization [facility] Address [address] [place] [address] Care Team Providers Name Role Phone Jeri García MD Primary Care Provider Encounter Details Date Type Department Care Team Description 01/08/2003 PN Conversion Only [facility] Jeri Stack, [address] [place] [address] [address] [phone] [place] [address] (Wo rk) Social History Tobacco Use Types Packs/Day Years Used Date Smoking Tobacco: Never Assessed Sex Assigned at Date Recorded Not on file documented as of this encounter Progress Notes Jeri García MD - 01/08/2003 12:01 AM CDT Progress Notes signed by Jeri García MD at 01/12/03 4819 Author: Jeri García MD Service: (none) Author Type: Physician Filed: 08/18/10 2603 Note Time: 01/08/03 0001 Status: Signed Silk Screen Processor: Jeri García MD (Physician) NAME: YAMILET DAILY MR: [id number] ACCT: [id number] VISIT: [id number] DICTATING CLINICIAN: JERI GARCÍA MD JOB: [id number] CLINIC PROGRESS NOTE DATE OF VISIT: 01/08/2003 SUBJECTIVE: Reason for visit: Abdominal pain. Jzqyoylw-zroy-lal here one month ago with one weeks [...] mucus. In two weeks she heads to [facility]. ??There is?? a concern about the [...] seven days until she is leaving for [facility] and we hate to miss something else brewing. An abdominal and pelvic CT is also scheduled. It is okay per the patient that her mom call and get these results. TT: CT: [id number] C: 01/08/03 23:02 DOCUMENT: [id number] Phone Note, Clinician - 01/02/2003 12:01 AM CDT Phone Note signed by AGUILA Zeng at 02/13/04 1635 Author: Clinician Phone Note Service: (none) Author Type: Resource Filed: 01/08/03 0000 Note Time: 01/02/03 0001 Status: Signed Silk Screen Processor: Clinician Phone Note (Resource) TO: XAVIER DIOR FROM: RHONDA MCGINNIS RN [phone] * PROVIDER MESSAGE: ROUTINE * 01/02/03 10:51AM * *WITHIN 4 HOURS * MESSAGE: Mom calling say her daughter * HOME PHONE:[phone] * is going to [facility] in a few * CONTACT PHONE:[phone] * weeks for 3 months time. She needs * Pt or Mom Leqeen * malaria pills. * PHARMACY: [phone] * SUBJECTIVE: * yumiko reyes * ALLERGIES/SENSITIVITIES... nkda CURRENT MEDICATIONS... none per Mom PERTINENT PAST HISTORY... WEIGHT: PATIENT IS NOT . PATIENT IS NOT NURSING. ASSESSMENT: rx for malaria pills PLAN: DISPOSITION: NO DISPOSITION GIVEN CALL BY RHONDA MCGINNIS RN 01/02/2003 10:48AM [phone] ADDENDUM: <> 01/02/2003 01:51PM by NADEEN BASS: Per Radha Gomez RN RADIATION ONCOLOGY NURSE, Lariam 250mg as directed. #19 with no refill called to Arleen at [phone]. Recommend calling the Travel clinic to check on immunizations needed or visit www.cdc.gov. Mother notified. BILLING SPECIALIST Phone Note, Clinician - 12/15/2002 12:01 AM CDT Phone Note filed by Clinician Phone Note at 08/16/10 0731 Author: Clinician Phone Note Service: (none) Author Type: Resource Filed: 08/16/10 1155 Note Time: 12/15/02 0001 Status: Signed Silk Screen Processor: Clinician Phone Note (Resource) TO: XAVIER DIOR FROM: JAY MEDINA [phone] * PROVIDER MESSAGE: ROUTINE * 12/15/02 08:55AM * *WITHIN 4 HOURS * MESSAGE: Patient's mom calling in * HOME PHONE:[phone] * today to see if the UA results from * CONTACT PHONE:[phone] * her appointment on 12/11/02 with * [...] GIVEN CALL BY JAY MEDINA 12/15/2002 08:52AM [phone] ADDENDUM: <> 12/15/2002 01:20PM by RADHA ROSEN: [...] BRAVO LPN: Notified of normal culture results. BILLING SPECIALIST Xavier Braun PA-C - 12/11/2002 12:01 AM CDT Progress Notes signed by Xavier Braun PA-C at 12/23/02 1421 Author: Xavier Braun PA-C Service: (none) Author Type: Physician Parts Data Writer Filed: 08/18/10 1627 Note Time: 12/11/02 0001 Status: Signed Silk Screen Processor: Xavier Braun PA-C (Physician Parts Data Writer) NAME: YAMILET DAILY MR: [id number] ACCT: [id number] VISIT: [id number] DICTATING CLINICIAN: ROCIO COSME JOB: [id number] CLINIC PROGRESS NOTE DATE OF VISIT: 12/11/2002 [...] 1. UTI. 2. Heart palpitation. TT: CT: [id number] C: 12/11/02 15:18 DOCUMENT: [id number] Radha Ogden - 09/10/2002 12:01 AM CDT Progress Notes signed by AGUILA Zeng at 01/22/04 3712 Author: AGUILA Zeng Service: (none) Author Type: Nurse Practitioner Filed: 08/18/10 5207 Note Time: 09/10/02 0001 Status: Signed Silk Screen Processor: AGUILA Zeng (Nurse Practitioner) NAME: YAMILET DAILY MR: [id number] ACCT: [id number] VISIT: [id number] DICTATING CLINICIAN: RADHA GOMEZ NP JOB: [id number] CLINIC PROGRESS NOTE DATE OF VISIT: 09/10/2002 [...] area and back of the head. Using vvqo-lom-vktouks Tylenol Sinus yesterday and aspirin for one dose with some good relief of the headache, but not really as much for the pressure. She does have a previous history of sinus infections. No history of allergies. Nonsmoker. MEDICATIONS: None. ADR/ALLERGIES: NKDA. NO LATEX ALLERGY. She is a student at [employer]. One sister sick at home with similar [...] with sinusitis, suspect viral etiology. TT: CT: [id number] C: 09/11/02 16:08 DOCUMENT: [id number] BILLING SPECIALIST Xavier Braun PA-C - 07/09/2002 12:01 AM CST Progress Notes signed by Xavier Braun PA-C at 07/16/02 1126 Author: Xavier Branu PA-C Service: (none) Author Type: Physician Parts Data Writer Filed: 08/18/10 1357 Note Time: 07/09/022053 Status: Signed Silk Screen Processor: Xavier Braun PA-C (Physician Parts Data Writer) NAME: YAMILET DAILY MR: [id number] ACCT: [id number] VISIT: [id number] DICTATING CLINICIAN: ROCIO COSME JOB: [id number] CLINIC PROGRESS NOTE DATE OF VISIT: 07/09/2002 SUBJECTIVE: : 1985. Chart Number: [id number]. This 17-year-old presents today with one week [...] to flight as she is leaving for [place] tomorrow. Lots of fluids, warm compresses to the sinus areas, steamy baths and showers to help with drainage. Return to clinic as needed for continued or worsening symptoms. FINAL IMPRESSION: Acute sinusitis. TT: CT: [id number] C: 07/10/02 20:33 DOCUMENT: [id number] Nghia Salas - 09/20/2001 12:01 AM CDT Progress Notes signed by at 06/21/02 0001 Author: Nghia Stringer MD Service: (none) Author Type: Physician Filed: 08/18/10 0713 Note Time: 09/20/012053 Status: Signed Silk Screen Processor: Nghia Stringer MD (Physician) IMPRESSION: Acute sinusitis. [...] time if symptoms not resolved. TT: CT: KOURTNEY:[id number] C: DOCUMENT: [id number] BILLING SPECIALIST Conversion, [facility] - 06/17/2001 12:01 AM CST Progress Notes signed by at 06/21/022053 Author: Imr Conversion Service: (none) Author Type: (none) Filed: 08/18/10 0457 Note Time: 06/17/012053 Status: Signed Silk Screen Processor: Shelley Conversion IMPRESSION: Postviral cough versus bronchitis. [...] to take. Follow up p.r.n. TT: CT: TIFFANIET:[id number] C: DOCUMENT: [id number] SCHEDULED RESOURCE: ALEKS BREEN / ROCIO BILLING SPECIALIST Conversion, [facility] - 11/06/2000 12:01 AM CDT Phone Note signed by at 11/06/00 6030 Author: [facility] Conversion Service: (none) Author Type: (none) Filed: 08/18/10 0007 Note Time: 11/06/002053 Status: Signed Silk Screen Processor: Shelley Conversion IMPRESSION: Need order for shot TO: MARY MENDOZA FROM: CJ YEPEZ RN [phone] * PROVIDER MESSAGE: RETURN * 11/06/00 12:48PM * CALL REQUESTED * MESSAGE: Genesis (mom) calling. * HOME PHONE:[phone] * Yamilet will be going to [place] at * CONTACT PHONE:[phone] * the end of the month and [...] PLAN: DISPOSITION: NO DISPOSITION GIVEN CALL BY JC YEPEZ RN 11/06/2000 12:45PM [phone] ADDENDUM: <> 11/06/2000 03:04PM by RADHA PIRES [...] 1553 Note Time: 06/30/99 0001 Status: Signed Silk Screen Processor: Jeri García MD (Physician) IMPRESSION: Sinusitis. 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 She [...] tab po bid for 14 days given. :[id number] C: DOCUMENT: [id number] BILLING SPECIALIST Nghia Stringer - 04/20/1999 12:01 AM CST Progress Notes signed by Nghia Stringer MD at 04/21/99 1733 Author: Nghia Stringer MD Service: (none) Author Type: Physician Filed: 08/17/10 1445 Note Time: 04/20/99 0001 Status: Signed Silk Screen Processor: Nghia Stringer MD (Physician) IMPRESSION: Acute sinusitis. [...] 10 days' time if symptoms not resolved. [facility]:[id number] C: DOCUMENT: [id number] BILLING SPECIALIST Fernando [facility] - 02/26/1997 12:01 AM CST Phone Note signed by at 02/26/97 0804 Author: Shelley King Service: (none) Author Type: (none) Filed: 08/17/10 0149 Note Time: 02/26/97 0001 Status: Signed Silk Screen Processor: Shelley King IMPRESSION: Sore Throat-(Child)-Nurse Guidelines - TREATING PROVIDER: YAKELIN CARUSO - Appointment made with YAKELIN Garcia HOME PHONE: [phone] * SHADY Feb 26 1997 10:20AM SUBJECTIVE: [...] concerns Call taken by BRODIE GARRETT, RN [phone] 02/26/1997 07:55 AM ADDENDUM: BILLING SPECIALIST Yakelin Caruso MD - 02/26/1997 12:01 AM CST Progress Notes signed by Yakelin Caruso MD at 03/04/97 1513 Author: Yakelin Caruso MD Service: (none) Author Type: Physician Filed: 08/17/10 0149 Note Time: 02/26/97 0001 Status: Signed Silk Screen Processor: Yakelin Caruso MD (Physician) IMPRESSION: Pharyngitis. SUBJECTIVE: [...] the throat culture results are back. [id number] BILLING SPECIALIST Tobias Adorno MD - 12/03/1996 12:01 AM CDT Progress Notes signed by Tobias Adorno MD at 03/15/97 1624 Author: Tobias Adorno MD Service: (none) Author Type: Physician Filed: 08/17/10 0038 Note Time: 12/03/96 0001 Status: Signed Silk Screen Processor: Tobias Adorno MD (Physician) IMPRESSION: (1) Probable [...] for any suspicious changes. PLAN: N/A. lap BILLING SPECIALIST Conversion, [facility] - 07/10/1996 12:01 AM CST Phone Note signed by at 07/10/96 1047 Author: Imr Conversion Service: (none) Author Type: (none) Filed: 08/16/10 4152 Note Time: 07/10/96 0001 Status: Signed Silk Screen Processor: Shelley King IMPRESSION: Nail Abnormality TO: MARY MENDOZA FROM: JACKELYN OSBORN RN [phone] * PROVIDER MESSAGE: ROUTINE * 07/10/96 10:40AM * *WITHIN 4 HOURS * MESSAGE: Please call if there is * HOME PHONE:[phone] * something she could do for this at * CONTACT PHONE:[phone] * home. * mom-Genesis * SUBJECTIVE: * [...] the nail has grown out. Occasionally wears faroese and false nails. No crumbling, yellow, or thickened nails. ALLERGIES/SENSITIVITIES... NKDA 07/10/96 CURRENT MEDICATIONS... none 07/10/96 PERTINENT PAST HISTORY... healthy 07/10/96 WEIGHT: PATIENT IS NOT . PATIENT IS NOT NURSING. ASSESSMENT: Nail Abnormality PLAN: DISPOSITION: NO DISPOSITION GIVEN CALL BY JACKELYN OSBORN RN 07/10/1996 10:36AM [phone] ADDENDUM: Jennifer Wolf APRN, CNP - 01/17/1996 12:01 AM CDT Progress Notes signed by Jennifer Beasley APRN, CNP at 01/22/96 1038 Author: LALI Ag Service: (none) Author Type: Nurse Practitioner Filed: 08/16/102053 Note Time: 01/17/96 0001 Status: Signed Silk Screen Processor: LALI Ag (Nurse Practitioner) IMPRESSION: Healthy almost 11-year-old. SUBJECTIVE: Yamilet is an almost 11-year-old in for routine care. She has been healthy, well and really comes in only for her shots. She is home schooled, and Mom described her as an excellent student. She has friends in the neighborhood and some other family friends through [employer]. She enjoys biking, rollerblading and walks frequently. [...] check. nbs Electronically signed by Jennifer Beasley, OIL GAS AND PIPE TESTER, RADIATION ONCOLOGY NURSE at 01/22/1996 1:27 PM CDT Mary Mendoza MD - 10/09/1994 12:01 AM CDT Progress Notes signed by Mary Mendoza MD at 10/12/94 0274 Author: Mary Mendoza MD Service: (none) Author Type: Physician Filed: 08/16/10 3939 Note Time: 10/09/94 0001 Status: Signed Silk Screen Processor: Mary Mendoza MD (Physician) IMPRESSION: Rash behind [...] 1:18 PM Resul ts for this LATERAL PRE BILLING SPECIALIST procedure are i n the results section. documented in this encounter Results XR Chest PA With Lateral (06/17/2001 1:18 PM PRE BILLING SPECIALIST) Anatomical Region Laterality Modality Other Specimen (Source) Anatomical Location Collection Method / Collectio n Time Received Time / Laterality Volume Impressions 06/17/2001 1:18 PM PRE BILLING SPECIALIST : ?NORMAL CHEST. FINDINGS: ?CH1 ?THE CARDIOVASCULAR STRUCTURES APPE AR NORMAL. ?NO EVIDENCE OF ACTIVE PULMONARY DI SEASE. TECH-ID : ? VV TRANS-ID: Narrative 06/17/2001 1:18 PM PRE BILLING SPECIALIST CLINICAL DATA: ?COUGH Procedure Note Jesse Escobar - 07/06/2016 CLINICAL DATA: COUGH IMPRESSION : NORMAL CHEST. FINDINGS: CH1 THE CARDIOVASCULAR STRUCTURES APPEAR NO RMAL. NO EVIDENCE OF ACTIVE PULMONARY DISEASE . TECH-ID : VV TRANS-ID: Aleks Breen PARene RAD GD documented in this encounter Visit Diagnoses Not on filedocumented in this encounter Care Teams Receiving Inspector Relationship Specialty Start Date End Date Jeri García MD PCP - General 08/02/10 09/06/11 [address] [place] [address] documented as of this encounter
--- OUTSIDE RECORDS SUMMARY | 2022-01-09 07:08 | XMS_ITS | Encounter Summary ---
:1985 Author Organization [facility] Address [address] [place] [address] Care Team Providers Name Role Phone Jeri García MD Primary Care Provider Encounter Details Date Type Department Care Team Description 10/28/2003 Office Visit [place] [facility] Mikala Del Valle PA-C [address] [facility] [address] [place] [address] [place] [address] [phone] (Wo rk) Social History Tobacco Use Types Packs/Day Years Used Date Smoking Tobacco: Never Assessed Sex Assigned at Date Recorded Not on file documented as of this encounter Progress Notes Mikala Del Valle PA-C - 10/28/2003 12:01 AM CDT Progress Notes signed by Mikala Del Valle PA-C at 01/25/04 6640 Author: Mikala Kumari PA-C Service: (none) Author Type: Physician Kier Boiler Filed: 08/19/10 0010 Note Time: 10/28/03 0001 Status: Signed Wine Pasteurizer: Mikala Kumari PA-C (Physician Kier Boiler) NAME: YAMILET DAILY MR: [id number] ACCT: [id number] VISIT: [id number] DICTATING CLINICIAN: ROCIO DRIVER JOB: [id number] CLINIC PROGRESS NOTE DATE OF VISIT: 10/28/2003 [...] counseling on how to treat the acne. TLW:[id number] C: 10/28/03 16:10 DOCUMENT: [id number] documented in this encounter Plan of Treatment Not on filedocumented as of this encounter Visit Diagnoses Not on filedocumented in this encounter Care Teams Aoc Director Combat Operations Officer Relationship Specialty Start Date End Date Jeri García MD PCP - General 08/02/10 09/06/11 [address] [place] [address] documented as of this encounter
--- OUTSIDE RECORDS SUMMARY | 2022-01-09 07:08 | XMS_ITS | Encounter Summary ---
:1985 Author Organization [facility] Address [address] [place] [address] Care Team Providers Name Role Phone Jeri García MD Primary Care Provider Encounter Details Date Type Department Care Team Description 01/14/2009 Office Visit [facility] [address] Vanessa Mckay MD Clinic [address] [place] [facility] [address] [place] [address] [place], [place] [address] [phone] Social History Tobacco Use Types Packs/Day Years [...] 0000 Note Time: 01/14/09 0001 Status: Signed Drywaller: Vanessa Moseley RN (Registered Nurse) Travel Clinic Initial Visit Patient is seen in Travel Clinic individually for travel education and counseling. Barrier(s) to care: None. TRAVEL PLANS Patient states they are planning to travel to: [place], in [facility] and [place], [place] for 3 weeks from [place] to [facility] in [place] and malaria areas, [facility], [place] and rural areas, [place] in [facility] and south into [facility] Plans include travel to and/or lodging at: [...] Diphtheria/Tetanus, Hepatitis A, Hepatitis B, HIV, Influenza, Dutch Encephalitis, Leishmaniasis, Malaria, Polio, Rabies--pre-exposure schedule, Rabies--post-exposure [...] on filedocumented in this encounter Care Teams Road Marker Relationship Specialty Start Date End Date Jeri García MD PCP - General 08/02/10 09/06/11 [address] [place] [address] documented as of this encounter
--- OUTSIDE RECORDS SUMMARY | 2022-01-09 07:08 | XMS_ITS | Encounter Summary ---
:1985 Author Organization [facility] Address [address] [place] [address] Care Team Providers Name Role Phone Unavailable Primary Care Provider Unavailable Reason for Visit Reason Comments Annual Exam Encounter Details Date Type Department Care Team Description 09/15/2011 Office Visit [facility] GastChanel diana M, Well adult exam (Primary Dx) ; [address] PA-C Need for hepatitis B vaccination; [place] [address] [address] [place] Breast lump on left side at 1 o'clock position [phone] [place], [place] [address] (Wo rk) Social History Tobacco Use Types [...] this encounter Patient Instructions Patient InstructionsCorry Murillo, COMMUNITY SERVICE SPECIALIST - 09/15/2011 1:34 PM CDT Thank you for enrolling in [facility]. Please follow the instructions below to securely access your online medical record. [facility] allows you to send messages to your doctor, view your test results, renewyour prescriptions, schedule appointments, and more. How Do I Sign Up? 1. In your Internet browser, go to: [email or web address] 2. Click on the Sign Up Now link in the Sign In box. You will see the New Member Sign Up page. 3. Enter your [facility] Access Code exactly as it appears below. You will not need to use this code after you???ve completed the sign-up process. If you do not sign up before the expiration date, you must request a new code. [facility] Access Code: [email or web address] Expires: 10/15/11 01:28 PM 4. Enter your Social Security Number (xxx-xx-xxxx) and Date of (mm/dd/yyyy) as indicated and click Submit. You will be taken to the next sign- up page. 5. Create a [facility] ID. This will be your [facility] login ID and cannot be changed, so think of one that is secure and easy to remember. 6. Create a [facility] password. You can change your password at any time. 7. Enter your Password Reset Question and Answer. This can be used at a later time if you forget your password. 8. Enter your e-mail address. You will receive e-mail notification when new information is availablein [facility]. 9. Click Sign Up. You can now view your medical record. Additional Information If you have questions, you can call [phone] to talk to our [facility] staff. Remember, [facility] is NOT to be used for urgent needs. For medical emergencies, dial 911. Thank you for enrolling in [facility]. Please follow the instructions below to securely access your online medical record. [facility] allows you to send messages to your doctor, view your test results, renewyour prescriptions, schedule appointments, and more. How Do I Sign Up? 10. In your Internet browser, go to: [email or web address] 11. Click on the Sign Up Now link in the Sign In box. You will see the New Member Sign Up page. 12. Enter your [facility] Access Code exactly as it appears below. You will not need to use this code after you???ve completed the sign-up process. If you do not sign up before the expiration date, you must request a new code. [facility] Access Code: [email or web address] Expires: 10/15/11 01:28 PM 13. Enter your Social Security Number (xxx-xx-xxxx) and Date of (mm/dd/yyyy) as indicated and click Submit. You will be taken to the next sign- up page. 14. Create a [facility] ID. This will be your [facility] login ID and cannot be changed, so think of one that is secure and easy to remember. 15. Create a [facility] password. You can change your password at any time. 16. Enter your Password Reset Question and Answer. This can be used at a later time if you forget your password. 17. Enter your e-mail address. You will receive e-mail notification when new information is available in [facility]. 18. Click Sign Up. You can now view your medical record. Additional Information If you have questions, you can call [phone] to talk to our [facility] staff. Remember, [facility] is NOT to be used for urgent [...] hormones. She has never had any pregnancies. 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 Smoking status: [...] adenopathy. Pelvic: Normal external genitalia and urethra. [place], moist vaginal and cervical mucosa, without lesions. [...]
--- OUTSIDE RECORDS SUMMARY | 2022-01-09 07:08 | XMS_ITS | Encounter Summary ---
:1985 Author Organization [facility] Address [address] [place] [address] Care Team Providers Name Role Phone Unavailable Primary Care Provider Unavailable Encounter Details Date Type Department Care Team Description 10/02/2011 Notes/Orders [place] [facility] [place] [facility] [place] [address] Social History Tobacco Use Types Packs/Day Years [...]
--- OUTSIDE RECORDS SUMMARY | 2022-01-09 07:08 | XMS_ITS | Encounter Summary ---
:1985 [facility] Address [address] [place] [address] Care Team Providers Name Role Phone Unavailable Primary Care Provider Unavailable Encounter Details Date Type Department Care Team Description 06/26/2012 Lab Visit [facility] Abdominal pain [address] [place] [id number] Social History Tobacco Use Types Packs/Day Years [...] 06/26/2012 11:33 Result s for this AM LITHOGRAPHED PLATE INSPECTOR procedure are i n the results section. URINALYSIS ROUTINE, Routine 06/26/2012 11:33 Abdominal pain Re sults for this MICRO/CULTURE IF POS AM LITHOGRAPHED PLATE INSPECTOR procedu re are in the results section. SEXUALLY TRANSMITTED Routine 06/26/2012 11:33 Abdominal pain R esults for this DISEASE PROBE AM LITHOGRAPHED PLATE INSPECTOR procedure are in the results section. URINE CULTURE Routine 06/26/2012 11:33 Results fo r this AM LITHOGRAPHED PLATE INSPECTOR procedure are i n the results section. TEST Routine 06/26/2012 11:33 Abdominal pain Results for this (URINE) AM LITHOGRAPHED PLATE INSPECTOR procedure are i n the results section. documented in this encounter Results Sexually Transmitted Disease Probe (06/26/2012 11:33 AM LITHOGRAPHED PLATE INSPECTOR) Component Value Ref Test Analysis Performed At [facility] Range Method Time Signature Chlamydia Chlamydia HP CONVERSION Trach DNA trachomatis NEGATIVE by DNA amplification GC DNA Neisseria HP CONVERSION gonorrhea NEGATIVE by DNA amplification. Specimen (Source) Anatomical Collection Method Collection Time Re ceived Time Location / / Volume Laterality Urine for 06/26/2012 11:33 molecular AM LITHOGRAPHED PLATE INSPECTOR testing: Rico Hester PA-C LAB_1 Performing Organization Address [facility] Phon e Number HP CONVERSION Urine Culture (06/26/2012 11:33 AM LITHOGRAPHED PLATE INSPECTOR) Patholo gist Method Time Signature Urine Culture Mixed gram HP CONVERSION positive & negative organisms. <10,000 cfu/mL Specimen (Source) Anatomical Collection Method Collection Time Re ceived Time Location / / Volume Laterality Urine: 06/26/2012 11:33 AM LITHOGRAPHED PLATE INSPECTOR Rico Hester PA-C LAB_1 Performing Organization Address [facility] Code Phon e Number HP CONVERSION (ABNORMAL) URINE MICROSCOPIC (06/26/2012 11:33 AM LITHOGRAPHED PLATE INSPECTOR) Patholo gist Method Time Signature Urine WBC [...] / Volume Laterality 06/26/2012 11:33 06/26/2012 AM LITHOGRAPHED PLATE INSPECTOR 11:33 AM LITHOGRAPHED PLATE INSPECTOR Narrative HP CONVERSION - 06/26/2012 11:49 AM LITHOGRAPHED PLATE INSPECTOR [place] [address] Rico Hester PA-C LAB_1 Performing Organization Address [facility] Phon e Number HP CONVERSION Test (Urine) (06/26/2012 11:33 AM LITHOGRAPHED PLATE INSPECTOR) Analysis Performed At Patho logist Time Signature Urine Negative HP CONVERSION Test Specimen Anatomical Collection Method Collection Time Receive d Time (Source) Location / / Volume Laterality 06/26/2012 11:33 06/26/2012 AM LITHOGRAPHED PLATE INSPECTOR 11:33 AM LITHOGRAPHED PLATE INSPECTOR Narrative HP CONVERSION - 06/26/2012 11:42 AM LITHOGRAPHED PLATE INSPECTOR Performed at [place] [id number] Rico J Kacie PA-C LAB_1 Performing Organization Address City/[facility]/ZIP Code Phon e Number HP CONVERSION (ABNORMAL) URINALYSIS ROUTINE, MICRO/CULTURE IF POS (06/26/2012 11:33 AM LITHOGRAPHED PLATE INSPECTOR) [facility] Method Time Signature Urine Type [...] U Specific <=1.005 1.005 - HP CONVERSION Anderson 1.030 Urobilinogen Negative Negative HP CONVERSION Urine Eu/dL Specimen Anatomical Collection Method Collection Time Receive d Time (Source) Location / / Volume Laterality Urine: 06/26/2012 11:33 06/26/2012 AM LITHOGRAPHED PLATE INSPECTOR 11:33 AM LITHOGRAPHED PLATE INSPECTOR Narrative HP CONVERSION - 06/26/2012 11:49 AM LITHOGRAPHED PLATE INSPECTOR Performed at [facility], [address] [place] [address] Rico Hester PA-C LAB_1 Performing Organization Address City/[facility] Code Phon e Number HP CONVERSION documented in this encounter Visit Diagnoses Diagnosis Abdominal pain documented in this encounter
--- OUTSIDE RECORDS SUMMARY | 2022-01-09 07:08 | XMS_ITS | Encounter Summary ---
:1985 Author Organization [employer] Address [address] [place] [address] Care Team Providers Name Role Phone Unavailable Primary Care Provider Unavailable Reason for Visit Reason Comments LEG PAIN Encounter Details Date Type Department Care Team Description 10/09/2011 Office Visit [facility] Chanel Herman, Leg pain (Primary Dx) [address] [place] [address] 46[address] [facility] [phone] [place], [place] [address] (Wo rk) Social History Tobacco Use Types [...]
--- OUTSIDE RECORDS SUMMARY | 2022-01-09 07:08 | XMS_ITS | Encounter Summary ---
:1985 Author Organization [facility] Address [address] [place] [address] Care Team Providers Name Role Phone Jeri García MD Primary Care Provider Encounter Details Date Type Department Care Team Description 12/27/2005 Office Visit [facility] 3800 Twila Collier MD Dermatology 3800 [facility] [address] [place] [address] [place], [place] [address] [phone] Social History Tobacco Use Types Packs/Day Years Used Date Smoking Tobacco: Never Assessed Sex Assigned at Date Recorded Not on file documented as of this encounter Progress Notes Twila Collier MD - 12/27/2005 12:01 AM CDT Progress Notes signed by Twila Collier MD at 01/23/067 Author: Twila Collier MD Service: (none) Author Type: Physician Filed: 08/19/10 1521 Note Time: 12/27/05 0001 Status: Signed Seo Consultant: Twila Collier MD (Physician) NAME: YAMILET DAILY MR: [id number] ACCT: [id number] VISIT: [id number] DICTATING CLINICIAN: TWILA COLLIER MD JOB: [id number] LOC: 427 CLINIC PROGRESS NOTE DATE OF [...] She can try to wean off ?. [facility]:[id number] C: 01/03/06 07:03 DOCUMENT: [id number] documented in this encounter Plan of Treatment Not on filedocumented as of this encounter Visit Diagnoses Not on filedocumented in this encounter Care Teams Lead Radiation Therapist Relationship Specialty Start Date End Date Jeri García MD PCP - General 08/02/10 09/06/11 [address] [place] [address] documented as of this encounter
--- OUTSIDE RECORDS SUMMARY | 2022-01-09 07:08 | XMS_ITS | Encounter Summary ---
:1985 Author Organization [employer] Address [address] [place] [address] Care Team Providers Name Role Phone Unavailable Primary Care Provider Unavailable Reason for Visit Reason Comments Abdominal Pain Encounter Details Date Type Department Care Team Description 07/01/2012 Hospital Encounter [facility] Luann Molina A bdominal pain, unspecified site; Care MD Bacterial vaginosis [address] [address] [phone] Social History Tobacco Use Types Packs/Day Years Used Date Smoking Tobacco: Never Alcohol Use Standard Drinks/Week Comments No 0 (1 standard drink = 0.6 oz pure alcoho l) Sex Assigned at Date Recorded Not on file documented as of this encounter Last Filed Vital Signs Vital Sign Reading Time Taken Comments Blood Pressure 110/74 07/01/2012 8:19 AM ASSEMBLER CATERPILLAR SPIDER Pulse 88 07/01/2012 8:19 AM ASSEMBLER CATERPILLAR SPIDER Temperature 36.3 ??C (97.3 ??F) 07/01/2012 8:19 AM ASSEMBLER CATERPILLAR SPIDER Respiratory Rate 16 07/01/2012 8:19 AM ASSEMBLER CATERPILLAR SPIDER Oxygen Saturation - - Inhaled Oxygen Concentration [...] 07/05/12 0755 Note Time: 07/01/121423 Status: Signed Diesel Service Technician: Luann Molina MD (Physician) NAME: YAMILET LORA MR#: [id number] CSN: [id number] AUTHENTICATING CLINICIAN: Luann Molina MD CONFIRM #: [id number] LOC: 520 URGENT CARE PROGRESS NOTE DATE [...] agreement the plan. DAVID:MEDQ C: CONFIRM #: [id number] MBLER CATERPILLAR SPIDER Luann Molina MD - 07/01/2012 1:18 PM [...] RN Oral - 07/01/12 1119 - - MBLER CATERPILLAR SPIDER documented in this encounter Plan of Treatment Not on filedocumented as of this encounter Procedures Procedure Name Priority Date/Time Associated Diagnosis Comme nts CT ABD PELVIS W IV Routine 07/01/2012 12:47 Abdominal pain, Re sults for this CONT PM ASSEMBLER CATERPILLAR SPIDER unspecified site procedure a re in the results section. WET PREP STAT 07/01/2012 11:02 Abdominal pain, Results for this AM ASSEMBLER CATERPILLAR SPIDER unspecified site procedure a re in the results section. US PELVIC COMPLETE W Routine 07/01/2012 10:42 Abdominal pain, Results for this EV AM ASSEMBLER CATERPILLAR SPIDER unspecified site procedure a re in the results section. COMPLETE BLOOD STAT 07/01/2012 9:16 AM Abdominal pain, Resu lts for this COUNT-W/DIFF ASSEMBLER CATERPILLAR SPIDER unspecified site procedure a re in the results section. DIFFERENTIAL STAT 07/01/2012 9:16 AM Results f or this ASSEMBLER CATERPILLAR SPIDER procedure are i n the results section. SEXUALLY TRANSMITTED STAT 07/01/2012 9:06 AM Abdominal pain , Results for this DISEASE PROBE ASSEMBLER CATERPILLAR SPIDER unspecified site procedure are in the results section. URINE MICROSCOPIC STAT 07/01/2012 9:05 AM Abdominal pain, R esults for this ASSEMBLER CATERPILLAR SPIDER unspecified site procedure a re in the results section. URINALYSIS STAT 07/01/2012 9:05 AM Abdominal pain, Result s for this ROUTINE(MICRO IF POS) ASSEMBLER CATERPILLAR SPIDER unspecified site pr ocedure are in the results section. TEST STAT 07/01/2012 9:05 AM Abdominal pain, Resu lts for this (URINE) ASSEMBLER CATERPILLAR SPIDER unspecified site procedure a re in the results section. documented in this encounter Results CT Abd Pelvis W IV Cont (07/01/2012 12:47 PM ASSEMBLER CATERPILLAR SPIDER) Anatomical Region Laterality Modality Abdomen, Pelvis Other Specimen (Source) Anatomical Location Collection Method / Collectio n Time Received Time / Laterality Volume Impressions 07/01/2012 1:03 PM ASSEMBLER CATERPILLAR SPIDER IMPRESSION: No evidence for appendicitis, diverticul itis, or bowel obstruction. ?? No specific abnormality to definitely ex plain the patient's symptomatology. Narrative 07/01/2012 1:03 PM ASSEMBLER CATERPILLAR SPIDER COMPARISON: ?? None. ?? TECHNIQUE: ??Abdomen and [...] CT (ABNORMAL) WET PREP (07/01/2012 11:02 AM ASSEMBLER CATERPILLAR SPIDER) [facility] gist Method Time Signature WETPR [...] / Volume Laterality 07/01/2012 11:02 07/01/2012 AM ASSEMBLER CATERPILLAR SPIDER 11:08 AM ASSEMBLER CATERPILLAR SPIDER Narrative HP CONVERSION - 07/01/2012 11:08 AM ASSEMBLER CATERPILLAR SPIDER Performed at [facility], [address] [place] [address] Luann Molina MD LAB_1 Performing Organization Address City/State/ZIP Code Phon e Number HP CONVERSION US Pelvic Complete W EV (07/01/2012 10:42 AM ASSEMBLER CATERPILLAR SPIDER) Anatomical Region Laterality Modality Pelvis Other Specimen (Source) Anatomical Location Collection Method / Collectio n Time Received Time / Laterality Volume Impressions 07/01/2012 10:52 AM ASSEMBLER CATERPILLAR SPIDER IMPRESSION: Normal pelvic ultrasound. Narrative 07/01/2012 10:52 AM ASSEMBLER CATERPILLAR SPIDER COMPARISON: ?None. ? FINDINGS: Transabdominal and endovaginal [...] MD RAD US Differential (07/01/2012 9:16 AM ASSEMBLER CATERPILLAR SPIDER) athologist Signature Absolute 2.3 1.8 - 8.0 [...] Volume Laterality 07/01/2012 9:16 AM 3 9:16 ASSEMBLER CATERPILLAR SPIDER AM ASSEMBLER CATERPILLAR SPIDER Narrative HP CONVERSION - 07/01/2012 9:42 AM ASSEMBLER CATERPILLAR SPIDER Performed at [facility], [address] [place] [address] Luann Molina MD LAB_1 Performing Organization Address City/State/ZIP Code Phon e Number HP CONVERSION (ABNORMAL) Complete Blood Count W/Diff (07/01/2012 9:16 AM ASSEMBLER CATERPILLAR SPIDER) [facility] gist Method Time Signature White [...] Volume Laterality 07/01/2012 9:16 AM 3 9:16 ASSEMBLER CATERPILLAR SPIDER AM ASSEMBLER CATERPILLAR SPIDER Narrative HP CONVERSION - 07/01/2012 9:42 AM ASSEMBLER CATERPILLAR SPIDER Performed at [facility], [address] [place] [address] Luann Molina MD LAB_1 Performing Organization Address [facility] Phon e Number HP CONVERSION Sexually Transmitted Disease Probe (07/01/2012 9:06 AM ASSEMBLER CATERPILLAR SPIDER) Component Value Ref Test Analysis Performed At [facility] gist Range Method Time Signature Chlamydia Chlamydia HP CONVERSION Trach DNA trachomatis NEGATIVE by DNA amplification GC DNA Neisseria HP CONVERSION gonorrhea NEGATIVE by DNA amplification. Specimen (Source) Anatomical Collection Method Collection Time Re ceived Time Location / / Volume Laterality Endocervical for 07/01/2012 9:06 molecular testing: AM ASSEMBLER CATERPILLAR SPIDER Luann Molina MD LAB_1 Performing Organization Address [facility] Phon e Number HP CONVERSION Test (Urine) (07/01/2012 9:05 AM ASSEMBLER CATERPILLAR SPIDER) Analysis Performed At Patho logist Time Signature Urine Negative HP CONVERSION Test Specimen Anatomical Collection Method Collection Time Receive d Time (Source) Location / / Volume Laterality 07/01/2012 9:05 AM 3 9:32 ASSEMBLER CATERPILLAR SPIDER AM ASSEMBLER CATERPILLAR SPIDER Narrative HP CONVERSION - 07/01/2012 9:38 AM ASSEMBLER CATERPILLAR SPIDER Performed at [facility], [address] [place] [address] Luann Molina MD LAB_1 Performing Organization Address [facility] Phon e Number HP CONVERSION (ABNORMAL) URINE MICROSCOPIC (07/01/2012 9:05 AM ASSEMBLER CATERPILLAR SPIDER) Patholo gist Method Time Signature Urine WBC [...] Volume Laterality 07/01/2012 9:05 AM 3 9:32 ASSEMBLER CATERPILLAR SPIDER AM ASSEMBLER CATERPILLAR SPIDER Narrative HP CONVERSION - 07/01/2012 9:44 AM ASSEMBLER CATERPILLAR SPIDER Performed at [facility], [address] [place] [address] Luann Molina MD LAB_1 Performing Organization Address [facility] Phon e Number HP CONVERSION (ABNORMAL) URINALYSIS ROUTINE(MICRO IF POS) (07/01/2012 9:05 AM ASSEMBLER CATERPILLAR SPIDER) [facility] Method Time Signature Urine Type [...] U Specific 1.020 1.005 - HP CONVERSION Mcandrews 1.030 Urobilinogen Negative Negative HP CONVERSION Urine Eu/dL Specimen Anatomical Collection Method Collection Time Receive d Time (Source) Location / / Volume Laterality Urine: 07/01/2012 9:05 AM 3 9:32 ASSEMBLER CATERPILLAR SPIDER AM ASSEMBLER CATERPILLAR SPIDER Narrative HP CONVERSION - 07/01/2012 9:44 AM ASSEMBLER CATERPILLAR SPIDER Performed at [facility], [address] [place] [address] Luann Molina MD LAB_1 Performing Organization Address [facility] Phon e Number HP CONVERSION documented [...] and tried one pill of new pack. MBLER CATERPILLAR SPIDER documented in this encounter
--- OUTSIDE RECORDS SUMMARY | 2022-01-09 07:08 | XMS_ITS | Encounter Summary ---
:1985 Author Organization [email or web address] Address [address] [place] [address] Care Team Providers Name Role Phone Unavailable Primary Care Provider Unavailable Reason for Visit Reason Comments Patient Calling Back Encounter Details Date Type Department Care Team Description 10/02/2011 Telephone [facility] Chanel Herman, Patient Calling Back [address] [place], [place] [id number] [facility] [phone] [place], [place] [address] (Wo rk) Social History [...] - 10/04/2011 8:47 AM CDT LM at [phone] that if pt is having sx of [...] can be used. Please call Yamilet at [phone] for advise and recommendation. Okay to leave [...] what you recommended. She uses [facility] on [address]. Please let her know on her cell phone at [phone].. Kiley Ndiaye - 10/02/2011 11:15 AM CDT t calling to speak to nurse about possible reaction ( pain in legs) to control medication. documented in this encounter Plan of Treatment Not on filedocumented as of this encounter Visit Diagnoses Not on filedocumented in this encounter
--- OUTSIDE RECORDS SUMMARY | 2022-01-09 07:08 | XMS_ITS | Encounter Summary ---
:1985 Author Organization [facility] Address [address] [place] [address] Care Team Providers Name Role Phone Jeri García MD Primary Care Provider Encounter Details Date Type Department Care Team Description 05/23/2004 PN Conversion Only OZZIE CONVERSION Jeri García, [address] [place] [address] [address] [place], [place] [phone] (Wo rk) Social History Tobacco Use Types Packs/Day Years Used Date Smoking Tobacco: Never Assessed Sex Assigned at Date Recorded Not on file documented as of this encounter Plan of Treatment Not on filedocumented as of this encounter Procedures Procedure Name Priority Date/Time Associated Comments Diagnosis DEHYDROEPIANDROSTERONE Routine 05/23/2004 11:37 R esults for AM MANAGER FINANCIAL PLANNING this procedure are in the results section. TESTOSTERONE TOTAL ADULT Routine 05/23/2004 11:37 Results for MALES AM MANAGER FINANCIAL PLANNING this procedure are in the results section. GLUCOSE Routine 05/23/2004 11:37 Results for AM MANAGER FINANCIAL PLANNING this procedure are in the results section. THYROID STIMULATING HORMONE Routine 05/23/2004 11:37 Results for AM MANAGER FINANCIAL PLANNING this procedure are in the results section. LH Routine 05/23/2004 11:37 Results for AM MANAGER FINANCIAL PLANNING this procedure are in the results section. FSH Routine 05/23/2004 11:37 Results for AM MANAGER FINANCIAL PLANNING this procedure are in the results section. documented in this encounter Results Glucose (05/23/2004 11:37 AM MANAGER FINANCIAL PLANNING) P athologist Signature Lab Glucose 89 60 - 100 HP CONVERSION mg/dL Specimen (Source) Anatomical Collection Method Collection Time Re ceived Time Location / / Volume Laterality 05/23/2004 11:37 AM MANAGER FINANCIAL PLANNING Jeri García MD LAB_1 Performing Organization Address City/State/ZIP Code Phon e Number HP CONVERSION Testosterone, Total Adult Males (05/23/2004 11:37 AM MANAGER FINANCIAL PLANNING) Analysis Performed At Patho logist Time Signature Testosterone 62 10 - 75 HP CONVERSION Level ng/dL Specimen (Source) Anatomical Collection Method Collection Time Re ceived Time Location / / Volume Laterality 05/23/2004 11:37 AM MANAGER FINANCIAL PLANNING Jeri García MD LAB_1 Performing Organization Address City/[facility]/ZIP Code Phon e Number HP CONVERSION Thyroid Stimulating Hormone (05/23/2004 11:37 AM MANAGER FINANCIAL PLANNING) athologist Signature Thyroid 1.48 0.20 - HP CONVERSION Stimulating 5.50 Hormone uIU/mL Specimen (Source) Anatomical Collection Method Collection Time Re ceived Time Location / / Volume Laterality 05/23/2004 11:37 AM MANAGER FINANCIAL PLANNING Jeri García MD LAB_1 Performing Organization Address City/[facility]/ZIP Code Phon e Number HP CONVERSION Dehydroepiandrosterone (05/23/2004 11:37 AM MANAGER FINANCIAL PLANNING) Patholo gist Method Time Signature Dehydroepiandrosterone 5.4 1.9 - 7.6 HP CONV ERSION ng/mL Specimen (Source) Anatomical Collection Method Collection Time Re ceived Time Location / / Volume Laterality 05/23/2004 11:37 AM MANAGER FINANCIAL PLANNING Jeri García MD LAB_1 Performing Organization Address City/[facility]/ZIP Code Phon e Number HP CONVERSION LH (05/23/2004 11:37 AM MANAGER FINANCIAL PLANNING) P athologist Signature Lh 25 mIU/mL HP CONVERSION Comment: ?LH Value (mIU/mL) Female: ? Range Normally Ovulating Females -Follicular Phase ? 2-13 -Mid-Cycle Peak ? 9- -Luteal Phase ? 0.5-17 Postmenopausal Females ? 5-52 Specimen (Source) Anatomical Collection Method Collection Time Re ceived Time Location / / Volume Laterality 05/23/2004 11:37 AM MANAGER FINANCIAL PLANNING Jeri García MD LAB_1 Performing Organization Address City/State/ZIP Code Phon e Number HP CONVERSION FSH (05/23/2004 11:37 AM MANAGER FINANCIAL PLANNING) P athologist Signature Follicle 5.1 mIU/mL HP CONVERSION Stimulating Hormone Comment: ? FSH Value(mIU/mL) Normally Menstruating Females ?Range -Follicular Phase ?3.6 - 16.0 -Mid-Cycle Peak ?3.4 - 33.0 -Luteal Phase ?1.5 - 9.1 Postmenopausal Females ?22.9 - 167 Specimen (Source) Anatomical Collection Method Collection Time Re ceived Time Location / / Volume Laterality 05/23/2004 11:37 AM MANAGER FINANCIAL PLANNING Jeri García MD LAB_1 Performing Organization Address City/State/ZIP Code Phon e Number HP CONVERSION documented in this encounter Visit Diagnoses Not on filedocumented in this encounter Care Teams Weight Trainer Relationship Specialty Start Date End Date Jeri García MD PCP - General 08/02/10 09/06/11 [address] [place], [place] [address] documented as of this encounter
--- OUTSIDE RECORDS SUMMARY | 2022-01-09 07:08 | XMS_ITS | Encounter Summary ---
:1985 Author Organization [employer] Address [address] [place] [address] Care Team Providers Name Role Phone Unavailable Primary Care Provider Unavailable Reason for Visit Reason Comments Medication Questions Encounter Details Date Type Department Care Team Description 06/25/2012 Telephone [facility] Chanel Herman, Medication Questions [address] [place] [place], [place] [phone] [address] [facility] [phone] [place], [place] [address] (Wo rk) Social History [...] for the pt with Dr. Cm's advice. STIGATIVE ASSISTANT Apolonia Cm MD - 06/25/2012 8:34 PM [...] us know if she has any issues. STIGATIVE ASSISTANT Luann Suarez RN - 06/25/2012 3:30 PM [...] side effects. Pharmacy correct. Please call Yamilet Goldman([facility]) [phone] () c vm y STIGATIVE ASSISTANT Kiley Ndiaye - 06/25/2012 3:23 PM CST Pt calling to speak to nurse/ about changing control medication due to nausea from existingmedication. STIGATIVE ASSISTANT documented in this encounter Plan of Treatment Not on filedocumented as of this encounter Visit Diagnoses Not on filedocumented in this encounter
--- OUTSIDE RECORDS SUMMARY | 2022-01-09 07:08 | XMS_ITS | Encounter Summary ---
:1985 Author Organization [facility] Address [address] [place] [address] Care Team Providers Name Role Phone Unavailable Primary Care Provider Unavailable Encounter Details Date Type Department Care Team Description 07/01/2012 [facility] [address] [place] [address] Social History Tobacco Use Types Packs/Day Years [...]
--- OUTSIDE RECORDS SUMMARY | 2022-01-09 07:08 | XMS_ITS | Encounter Summary ---
:1985 Author Organization [employer] Address [address] [place] [address] Care Team Providers Name Role Phone Unavailable Primary Care Provider Unavailable Reason for Visit Reason Comments LEG PAIN Encounter Details Date Type Department Care Team Description 09/22/2011 Telephone [facility] Chanel Herman PA-C LEG PAIN [address] [facility] [place] [address] [place] [address] [phone] (Wo rk) Social History Tobacco Use Types [...]
--- OUTSIDE RECORDS SUMMARY | 2022-01-09 07:08 | XMS_ITS | Encounter Summary ---
:1985 Author Organization [facility] Address [address] [place] [address] Care Team Providers Name Role Phone Jeri García MD Primary Care Provider Encounter Details Date Type Department Care Team Description 08/30/2010 PN Conversion Only [facility] Jeri Stack, [address] [place] [address] [address] [phone] [address] [id number] (Wo rk) Social History Tobacco Use Types Packs/Day Years Used Date Smoking Tobacco: Never Alcohol Use Standard Drinks/Week Comments No 0 (1 standard drink = 0.6 oz pure alcoho l) Sex Assigned at Date Recorded Not on file documented as of this encounter Plan of Treatment Not on filedocumented as of this encounter Visit Diagnoses Not on filedocumented in this encounter Care Teams Master Scheduler Relationship Specialty Start Date End Date Jeri García MD PCP - General 08/02/10 09/06/11 [place] [address] documented as of this encounter
--- OUTSIDE RECORDS SUMMARY | 2022-01-09 07:08 | XMS_ITS | Encounter Summary ---
:1985 Author Organization [facility] Address [address] [place] [address] Care Team Providers Name Role Phone Jeri García MD Primary Care Provider Encounter Details Date Type Department Care Team Description 03/18/2003 PN Conversion Only OZZIE CONVERSION [address] [place] [address] Social History Tobacco Use Types Packs/Day Years Used Date Smoking Tobacco: Never Assessed Sex Assigned at Date Recorded Not on file documented as of this encounter Plan of Treatment Not on filedocumented as of this encounter Visit Diagnoses Not on filedocumented in this encounter Care Teams Mechanism Inspector Relationship Specialty Start Date End Date Jeri García MD PCP - General 08/02/10 09/06/[address] [place] [id number] documented as of this encounter
--- OUTSIDE RECORDS SUMMARY | 2022-01-09 07:08 | XMS_ITS | Encounter Summary ---
:1985 Author Organization [facility] Address [address] [place] [address] Care Team Providers Name Role Phone Jeri García MD Primary Care Provider Encounter Details Date Type Department Care Team Description 07/09/2008 PN Conversion Only MASCOUTAH CONVERSIO N Lidia Aquino APRN, [address] [place] [address] [place] [address] (Wo rk) Social History Tobacco [...] on filedocumented in this encounter Care Teams Insurance Billing Specialist Relationship Specialty Start Date End Date Jeri García MD PCP - General 08/02/10 09/06/11 [address] [place] [id number] documented as of this encounter
--- OUTSIDE RECORDS SUMMARY | 2022-01-09 07:08 | XMS_ITS | Encounter Summary ---
:1985 Author Organization [facility] Address [address] [place] [address] Care Team Providers Name Role Phone Jeri García MD Primary Care Provider Encounter Details Date Type Department Care Team Description 07/09/2008 PN Conversion Only DARRINGTON CON[place]SIO N [address] [place] [address] Social History Tobacco Use Types Packs/Day Years Used Date Smoking Tobacco: Never Alcohol Use Standard Drinks/Week Comments No 0 (1 standard drink = 0.6 oz pure alcoho l) Sex Assigned at Date Recorded Not on file documented as of this encounter Plan of Treatment Not on filedocumented as of this encounter Visit Diagnoses Not on filedocumented in this encounter Care Teams Food Production Associate Relationship Specialty Start Date End Date Jeri García MD PCP - General 08/02/10 09/06/11 [address] [place] [id number] documented as of this encounter
--- OUTSIDE RECORDS SUMMARY | 2022-01-09 07:08 | XMS_ITS | Encounter Summary ---
:1985 Author Organization [facility] Address [address] [place] [address] Care Team Providers Name Role Phone Jeri García MD Primary Care Provider Encounter Details Date Type Department Care Team Description 08/26/2003 PN Conversion Only [facility] Mikala Del Valle, [address] [facility] [place] [address] [phone] [place], [place] [address] (Wo rk) Social History Tobacco Use Types Packs/Day Years Used Date Smoking Tobacco: Never Assessed Sex Assigned at Date Recorded Not on file documented as of this encounter Progress Notes Mikala Del Valle PA-C - 08/26/2003 12:01 AM CDT Progress Notes signed by Mikala Del Valle PA-C at 01/25/04 1637 Author: Mikala Kumari PA-C Service: (none) Author Type: Physician Manager Casino Filed: 08/18/10 1407 Note Time: 08/26/03 0001 Status: Signed Hog Handler: Mikala Kumari PA-C (Physician Manager Casino) NAME: YAMILET DAILY MR: [id number] ACCT: [id number] VISIT: [id number] DICTATING CLINICIAN: ROCIO DRIVER JOB: [id number] CLINIC PROGRESS NOTE DATE OF VISIT: 08/26/2003 [...] chest or back. She has tried various jdnr-ceg-jpcuzbl products. Does seem to get irritated with [...] involvement of her chest, back or shoulders. [id number] C: 08/26/03 19:06 DOCUMENT: [id number] documented in this encounter Plan of Treatment Not on filedocumented as of this encounter Visit Diagnoses Not on filedocumented in this encounter Care Teams Senior Customer Service Representative Relationship Specialty Start Date End Date Jeri García MD PCP - General 08/02/10 09/06/11 [address] [place], [place] [id number] documented as of this encounter
--- OUTSIDE RECORDS SUMMARY | 2022-01-09 07:08 | XMS_ITS | Encounter Summary ---
:1985 Author Organization [facility] Address [address] [place] [address] Care Team Providers Name Role Phone Jeri García MD Primary Care Provider Encounter Details Date Type Department Care Team Description 12/26/2005 PN Conversion Only BELTON [place]VERSIO [address] [address] [place] [address] Social History Tobacco Use Types Packs/Day Years Used Date Smoking Tobacco: Never Assessed Sex Assigned at Date Recorded Not on file documented as of this encounter Plan of Treatment Not on filedocumented as of this encounter Visit Diagnoses Not on filedocumented in this encounter Care Teams News Specialist Relationship Specialty Start Date End Date Jeri García MD PCP - General 08/02/10 09/06/11 [address] [place] [id number] documented as of this encounter
--- OUTSIDE RECORDS SUMMARY | 2022-01-09 07:08 | XMS_ITS | Encounter Summary ---
:1985 Author Organization [facility] Address [address] [place] [address] Care Team Providers Name Role Phone Jeri García MD Primary Care Provider Encounter Details Date Type Department Care Team Description 05/10/2005 PN Conversion Only OZZIE Mariano Lennon PA-C [address] [place] [address] [place] [address] (Wo rk) Social History Tobacco Use Types Packs/Day Years Used Date Smoking Tobacco: Never Assessed Sex Assigned at Date Recorded Not on file documented as of this encounter Plan of Treatment Not on filedocumented as of this encounter Procedures Procedure Name Priority Date/Time Associated Diagnosis Comme nts POTASSIUM Routine 05/10/2005 3:25 PM Results f or this FUEL CELL BATTERY TECHNICIAN procedure are i n the results section . documented in this encounter Results Potassium (05/10/2005 3:25 PM FUEL CELL BATTERY TECHNICIAN) P athologist Signature Potassium 4.0 3.5 - 5.2 HP CONVERSION meq/L Specimen (Source) Anatomical Collection Method Collection Time Re ceived Time Location / / Volume Laterality 05/10/2005 3:25 PM FUEL CELL BATTERY TECHNICIAN Mariano Braun PA-C LAB_1 Performing Organization Address City/State/ZIP Code Phon e Number HP CONVERSION documented in this encounter Visit Diagnoses Not on filedocumented in this encounter Care Teams Shipping Support Relationship Specialty Start Date End Date Jeri García MD PCP - General 08/02/10 09/06/11 [address] [place] [address] documented as of this encounter
--- OUTSIDE RECORDS SUMMARY | 2022-01-09 07:09 | XMS_ITS | Encounter Summary ---
:1985 Author Organization [facility] Address [address] [place] [address] Care Team Providers Name Role Phone Jeri García MD Primary Care Provider Encounter Details Date Type Department Care Team Description 12/11/2002 PN Conversion Only OZZIE CONVERSION Mariano Braun PAScottieC [address] [place] [address] [place] [address] (Wo rk) Social History Tobacco Use Types [...] - HP CONVERSION Hemoglobin Conc 36.5 gm/dL [place] RDW 12.3 11.0 - HP CONVERSION 15.0 % Platelet Count 207 140 - 450 HP CONVERSION k/cmm Specimen (Source) Anatomical Collection Method Collection Time Re ceived Time Location / / Volume Laterality 12/11/2002 12:10 PM CDT Mariano Braun PA-C LAB_1 Performing Organization Address City/[facility] Code Phon e Number HP CONVERSION (ABNORMAL) Urinalysis Complete (12/11/2002 12:10 PM CDT) Patholo gist Method Time Signature Glucose, Negative Neg-Trac HP CONVERSION Qualitative U Protein Urine Negative Neg-Trac HP CONVERSION Ketones Negative Negative HP CONVERSION U BILI Negative Negative HP CONVERSION U Specific 1.010 1.005 - 25 HP CONVERSION Rice Blood Urine Small (A) Negative HP CONVERSION [...] Mariano Braun PA-C LAB_1 Performing Organization Address [facility] Phon e Number HP CONVERSION Electrolytes [...] Lugo Aparna SAVAGE LAB_1 Performing Organization Address City/[facility] Phon e Number HP CONVERSION Thyroid Stimulating Hormone (12/11/2002 12:10 PM CDT) athologist Signature Thyroid 0.95 0.20 - HP CONVERSION Stimulating 5.50 Hormone uIU/mL Specimen (Source) Anatomical Collection Method Collection Time Re ceived Time Location / / Volume Laterality 12/11/2002 12:10 PM CDT Mariano Lugo Aparna CHAN-Joesph LAB_1 Performing Organization Address [facility] Code Phon e Number HP CONVERSION Hgb A1c (12/11/2002 12:10 PM CDT) athologist Signature HGB A1C 4.8 <6.0 % HP CONVERSION Specimen (Source) Anatomical Collection Method Collection Time Re ceived Time Location / / Volume Laterality 12/11/2002 12:10 PM CDT Mariano Lugo Aparna CHAN-Joesph LAB_1 Performing Organization Address [facility] Code Phon e Number HP CONVERSION documented in this encounter Visit Diagnoses Not on filedocumented in this encounter Care Teams Industrial Refrigeration Mechanic Relationship Specialty Start Date End Date Jeri García MD PCP - General 08/02/10 09/06/11 [address] [place] [address] documented as of this encounter
--- OUTSIDE RECORDS SUMMARY | 2022-01-09 07:09 | XMS_ITS | Encounter Summary ---
:1985 Author Organization [employer] Address [address] [place] [address] Care Team Providers Name Role Phone Jeri García MD Primary Care Provider Encounter Details Date Type Department Care Team Description 01/08/2003 PN Conversion Only OZZIE CONVERSION Jeri García, [address] [place] [address] [address] [place] [address] (Wo rk) Social History Tobacco Use [...] Patient: YAMILET DAILY Culture, Urine @ ?Collected: ??[id number] ??[id number] Source: Clean Ca ?Processed: ??[id number] ??1412 ? G SENS Final Report ------ ?[id number] ??[id number] No growth @ = URINE CULTURE Performed at ??[address] [place], [place] ?[address] Specimen (Source) Anatomical Collection Method Collection Time Re ceived Time Location / / Volume Laterality 01/08/2003 2:12 PM CDT Jeri García MD LAB_1 Performing Organization Address City/State/ZIP Code Phon e Number HP CONVERSION (ABNORMAL) Urinalysis Complete (01/08/2003 1:59 PM CDT) [facility] gist Method Time Signature Glucose, Negative Neg-Trac HP CONVERSION Qualitative U Protein Urine Negative Neg-Trac HP CONVERSION Ketones Negative Negative HP CONVERSION U BILI Negative Negative HP CONVERSION U Specific <=1.005 1.005 - 25 HP CONVERSION [place] Blood Urine Moderate Negative HP CONVERSION (A) [...] on filedocumented in this encounter Care Teams Outpatient Program Coordinator Relationship Specialty Start Date End Date Jeri García MD PCP - General 08/02/10 09/06/11 [address] [place], [place] [id number] documented as of this encounter
--- OUTSIDE RECORDS SUMMARY | 2022-01-09 07:09 | XMS_ITS | Encounter Summary ---
:1985 Author Organization [facility] Address [address] [place] [address] Care Team Providers Name Role Phone Jeri García MD Primary Care Provider Encounter Details Date Type Department Care Team Description 01/08/2003 PN Conversion Only AMY CONVERSION [address] [place] [address] Social History Tobacco Use Types Packs/Day Years [...] 1231 Note Time: 03/09/03 0001 Status: Signed Director Of Operations: Clinician Phone Note (Resource) TO: JERI GARCÍA FROM: JUAN PALMA RN [phone] * PROVIDER MESSAGE: ROUTINE * 03/09/03 01:36PM * *WITHIN 4 HOURS * MESSAGE: Mom calling. Pt. is studying * HOME PHONE:[phone] * in [facility], will be there another * CONTACT PHONE:[phone] * 6 wks . Her IBS has been under good * Genesis * control with Bentyl, there were no * PHARMACY: [phone] * refills from 01/14 phone note order. [...] CALL BY JUAN PALMA RN 03/09/2003 01:34PM [phone] ADDENDUM: <> 03/09/2003 02:25PM by RHONDA HYMAN STOREROOM CLERK: Per Dr. García rx. for Bentyl 10mgs sig 1 tab po qid prn #100 with 1 refill called to pharmacy. RHANGER CONTRACTOR Phone Note, Clinician - 01/16/2003 12:01 AM CDT Phone Note filed by Clinician Phone Note at 08/16/10 5163 Author: Clinician Phone Note Service: (none) Author Type: Resource Filed: 08/16/10 1208 Note Time: 01/16/03 0001 Status: Signed Director Of Operations: Clinician Phone Note (Resource) TO: JERI GARCÍA FROM: ROYA GILES [id number] * PROVIDER MESSAGE: ROUTINE * 01/16/03 10:02AM * *WITHIN 4 HOURS * MESSAGE: Yamilet is calling * HOME PHONE:[phone] * requesting her ultra sound results * CONTACT PHONE:[phone] * she had that done on [place]. Please call her at [phone] SUBJECTIVE: ALLERGIES/SENSITIVITIES... nkda 01/12/03 not verified 01/16/03 CURRENT MEDICATIONS... Cipro 01/12/03 not verified 01/16/03 PERTINENT PAST HISTORY... n01/12/03 not verified 01/16/03 WEIGHT: OMITTED ASKING ABOUT . OMITTED ASKING ABOUT NURSING. ASSESSMENT: PLAN: DISPOSITION: NO DISPOSITION GIVEN CALL BY ROYA GILES 01/16/2003 10:01AM [id number] ADDENDUM: <> 01/16/2003 01:36PM by JERI CORTES STOREROOM CLERK: Alex Quintana, normal kidney U/S. Msg lft at contact # with this info. RHANGER CONTRACTOR Phone Note, Clinician - 01/14/2003 12:01 AM CDT Phone Note filed by Clinician Phone Note at 08/16/10 1202 Author: Clinician Phone Note Service: (none) Author Type: Resource Filed: 08/16/10 1204 Note Time: 01/14/03 0001 Status: Signed Director Of Operations: Clinician Phone Note (Resource) TO: JERI GARCÍA FROM: ROYA GILES [id number] * PROVIDER MESSAGE: ROUTINE * 01/14/03 08:13AM * *WITHIN 4 HOURS * MESSAGE: Yamilet is still having * HOME PHONE:[phone] * pain even with the medication that * CONTACT PHONE:[phone] * she was given , her mom is wondering if there is anything else she can be taking. Please call her at [phone] SUBJECTIVE: ALLERGIES/SENSITIVITIES... nkda 01/12/03 not verified 01/14/03 CURRENT MEDICATIONS... Cipro 01/12/03 not verified 01/14/03 PERTINENT PAST HISTORY... n01/12/03 not verified 01/14/03 WEIGHT: OMITTED ASKING ABOUT . OMITTED ASKING ABOUT NURSING. ASSESSMENT: PLAN: DISPOSITION: NO DISPOSITION GIVEN CALL BY ROYA GILES 01/14/2003 08:11AM [id number] ADDENDUM: <> 01/14/2003 02:02PM by RHONDA HYMAN STOREROOM CLERK: Per Dr. García rx for Bentyl 10mgs [...] for results to be given to Mom. RHANGER CONTRACTOR Phone Note, Clinician - 01/12/2003 12:01 AM CDT Phone Note filed by Clinician Phone Note at 08/16/10 1206 Author: Clinician Phone Note Service: (none) Author Type: Resource Filed: 08/16/10 1206 Note Time: 01/12/03 0001 Status: Signed Director Of Operations: Clinician Phone Note (Resource) TO: JERI GARCÍA FROM: JUAN PALMA RN [phone] * PROVIDER MESSAGE: ROUTINE * 01/12/03 11:10AM * *WITHIN 4 HOURS * MESSAGE: Pt. was seen 01/08. She was * HOME PHONE:[phone] * started on Cipro for UTI. Pain is * CONTACT PHONE:[phone] * improving but c/o stomach ache. Is * PHARMACY: [phone] * taking abx. with food. Would like * Amy WM * CT results from 01/09. SUBJECTIVE: ALLERGIES/SENSITIVITIES... nkda 01/12/03 CURRENT MEDICATIONS... Cipro 01/12/03 PERTINENT PAST HISTORY... 01/12/03 WEIGHT: OMITTED ASKING ABOUT . OMITTED ASKING ABOUT NURSING. ASSESSMENT: CT results PLAN: DISPOSITION: NO DISPOSITION GIVEN CALL BY JUAN PALMA RN 01/12/2003 11:09AM [phone] ADDENDUM: <> 01/12/2003 01:37PM by STAN CHAVEZ: Ok per Dr. García to schedule pt. for a R Kidney US for area of decreased perfusion seen on R lower pole of CT. Scheduled and notified. RHANGER CONTRACTOR documented in this encounter Plan of Treatment [...] normal appearing kidneys. ? ?See above discussion. [id number]/[facility] Dictating BRITTANY MONTEIRO RADIOLOGIST Narrative 01/15/2003 [...] normal appearing kidneys. S ee above discussion. [id number]/[facility] Dictating BRITTANY MONTEIRO RADIOLOGIST Jeri García [...] amount of free fluid within the pelvis. tss/[id number] Dictating AZEEM RITCHIE RADIOLOGIST Procedure Note Azeem [...] amount of free fluid within the pelvis. tss/[id number] Dictating AZEEM RITCHIE RADIOLOGIST Jeri García MD [...] be useful in further evaluation. RI rlr [id number] Dictating AZEEM RITCHIE RADIOLOGIST Procedure Note Azeem [...] be useful in further evaluation. RI rlr [id number] Dictating AZEEM RITCHIE RADIOLOGIST Jeri García MD RAD CT documented in this encounter Visit Diagnoses Not on filedocumented in this encounter Care Teams Shake Maker Relationship Specialty Start Date End Date Jeri García MD PCP - General 08/02/10 09/06/11 [address] [place] [address] documented as of this encounter
--- OUTSIDE RECORDS SUMMARY | 2022-01-09 07:09 | XMS_ITS | Encounter Summary ---
:1985 Author Organization [email or web address] Address [address] [place] [address] Care Team Providers Name Role Phone Jeri García MD Primary Care Provider Encounter Details Date Type Department Care Team Description 12/11/2002 PN Conversion Only OZZIE CONVERSION Radha Landin, FREEZING MACHINE OPERATOR, [address] [place] [address] [address] [place] [address] (Wo rk) Social History Tobacco Use [...] Patient: YAMILET DAILY Culture, Urine @ ?Collected: ??[id number] ??[id number] Source: Clean Ca ?Processed: ??[id number] ??1356 ? DO SENSI Final Report ------ ?[id number] ??[id number] No growth @ = URINE CULTURE Performed at ??[address] [place], [place] ?[address] Specimen (Source) Anatomical Collection Method Collection Time Re ceived Time Location / / Volume Laterality 12/11/2002 1:56 PM CDT Radha Landin FREEZING MACHINE OPERATOR, TOE CLOSING MACHINE TENDER LAB_1 Performing Organization Address City/State/ZIP Code Phon e Number HP CONVERSION documented in this encounter Visit Diagnoses Not on filedocumented in this encounter Care Teams Car Spotter Relationship Specialty Start Date End Date Jeri García MD PCP - General 08/02/10 09/06/11 [address] [place] [address] documented as of this encounter
--- NOTE | 2022-01-09 07:15 | CRLHL7_ITS ---
For Patients: As a result of the Century Cures Act, medical imaging exams and procedure reports are released immediately into your electronic medical record. You may view this report before your referring provider. If you have questions, please contact your health care provider. INDICATION: Abdominal pain COMPARISON: none TECHNIQUE: Real time schwarz scale imaging and color Doppler analysis was performed of the right upper quadrant. FINDINGS: The patient`s liver is of normal size and has uniform echogenicity. There is a normal appearance of the hepatic IVC and proximal abdominal aorta. There is no evidence of ascites. The gallbladder is of normal size and there is a tiny hyperechoic focus within the gallbladder. The gallbladder wall measures 2 mm in thickness. The common bile duct is of normal size and measures 3 mm in diameter at the level of the abdoul hepatis. The pancreas appears normal. There is no evidence of a stone or hydronephrosis within the right kidney. The right kidney measures 10.0 cm in length. IMPRESSION: A tiny cholesterol stone is suspected within the gallbladder. Remainder normal. Dictated by Musa Stauffer MD @ 01/09/2022 8:59:26 AM (Electronically Signed)
== END 2022-01-09 07:05 | disposition home or self-care (01) ==
PROVIDERS: Visit Provider Physician Assistant Medical
DX: R10.9 Unspecified abdominal pain (principal)
CPT/HCPCS: 76705

== ENCOUNTER 2022-01-24 10:55 | Outpatient (CLI) | payer OTHER, SELFPAY ==
--- OUTSIDE RECORDS SUMMARY | 2022-01-24 10:56 | XMS_ITS | Clinical Summary ---
:1985 Author Organization [facility] Address [address] [place] [address] Care Team Providers Name Role Phone Kristine [...] for each transition of care or referral. [facility] Allergies No known active allergies Medications No [...] Comments Blood Pressure 127/82 05/23/2019 10:30 AM CAREER SERVICES REPRESENTATIVE Pulse 103 05/23/2019 10:30 AM CAREER SERVICES REPRESENTATIVE Temperature 36.9 ??C (98.4 ??F) 05/23/2019 10:30 AM CAREER SERVICES REPRESENTATIVE Respiratory Rate 16 02/10/2019 2:45 PM CDT Oxygen Saturation 100% 02/10/2019 2:45 PM CDT Inhaled Oxygen Concentration - - Weight 63.5 kg (140 lb) 05/23/2019 10:30 AM CAREER SERVICES REPRESENTATIVE Height 177.8 cm (5' 10) 02/10/2019 1:19 [...] Phone Addre ss Type Group [employer] C[employer] [id number] 2013-Present [phone] [address] [place] [address] [address] [facility] (Home) [address] [phone] Eduar BEYER (Work) [address] Guido, Personal/Family Self 1985 [address] [facility] ([address] [phone] Eduar TURNER (Work) [address] Guido, Personal/Family Self 1985 [address] [facility] (Home) [place] [address] Care Teams Hydro Excavation Operator Relationship Specialty Start Date End Date Kristine Mendez MD PCP - General 01/01/14 [address] [address] [address]
--- OUTSIDE RECORDS SUMMARY | 2022-01-24 10:57 | XMS_ITS | Encounter Summary ---
:1985 Author Organization [facility] Address [address] [place] [address] Care Team Providers Name Role Phone Unavailable Primary Care Provider Unavailable Reason for Visit Reason Onset Date Comments LAB RESULTS 07/23/2012 Encounter Details Date Type Department Care Team Description 07/23/2012 Telephone Urgent Care [facility] Kirsten Quiroz PATTERN CHART WRITER RESULTS [address] [facility] [place] [address] [phone] [place], [place] [address] Social History Tobacco Use [...]
--- OUTSIDE RECORDS SUMMARY | 2022-01-24 10:57 | XMS_ITS | Encounter Summary ---
:1985 Author Organization [facility] Address [address] [place] [address] Care Team Providers Name Role Phone Kristine Mendez MD Primary Care Provider Reason for Visit Reason Comments BREAST LUMP Encounter Details Date Type Department Care Team Description 05/23/2019 Nurse Triage [facility] Tiana Mcfarlane, DO BREAST LUMP Services-MANAGER ACQUISITION [address] [facility] Ad [address] [place] [address], [address] [place] [address] [place] [address] [phone] Social History Tobacco Use Types Packs/Day Years [...] Disposition ??? Breast lump Protocols used: BREAST [id number] Non-tender, dime sized, slightly mobile breast lump at 12:00 slightly above areola in left breast. First noticed last night. No fam hx of breast cancer. 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 Denies redness, warmth, nipple discharge or flaking of nipple. Appointment made per protocol. Problem list reviewed as related to this call. Future Appointments Provider Department Center 05/23/2019 10:30 AM Madeleine Page APRN, TRESTLE BUILDER [facility]-MANAGER ACQUISITION PN CARR FR EXAMINER documented in this encounter Plan of Treatment Not on filedocumented as of this encounter Visit Diagnoses Not on filedocumented in this encounter Care Teams Beaming Inspector Relationship Specialty Start Date End Date Kristine Mendez MD PCP - General 01/01/[address] [place] [address] documented as of this encounter
--- OUTSIDE RECORDS SUMMARY | 2022-01-24 10:57 | XMS_ITS | Encounter Summary ---
:1985 Author Organization [facility] Address [address] [place] [address] Care Team Providers Name Role Phone Kristine Mendez MD Primary Care Provider Encounter Details Date Type Department Care Team Description 01/02/[address] [facility] 3850 Thyroid m ass; Laboratory Hirsutism; [facility] Scanty or infrequent menstru ation; [place] [address] Thyroid nodule [phone] Social History Tobacco Use Types Packs/Day Years [...] - 01/02/2014 2:31 PM CDT Performed at [facility], [address] [place] [address] Lima Carterjuan jose [facility] Performing Organization Address City/[facility]/ZIP Code Phon e Number HP CONVERSION TESTOSTERONE FREE TOTAL FEMALES AND CHILDREN (01/02/2014 1:52 PM CDT) Analysis Performed At [facility] Time Signature Testosterone 36 9 - 55 HP CONVERSION Female or ng/dL Children Comment: Total Testosterone, Females 18 years and older Premenopausal ??9-55 ng/dL Postmenopausal 5-32 ng/dL REFERENCE INTERVAL: Testosterone, LC-MS/ MS Access complete set of age- and/or gende r-specific reference intervals for this test in the [employer] Test Directory ([employer]). Test developed and characteristics deter mined by [facility]. See Compliance Statement B : [employer]/CS Testosterone Free Female and Child 3.6 0.8 [...] reference intervals for this test in the [facility] Test Directory ([employer]). Sex Hormone Binding Globulin 72 30 - 135 nmol/L HP CONVERSION Comment: REFERENCE INTERVAL: Sex Hormone Binding Globulin Access complete set of age- and/or gende r-specific reference intervals for this test in the [facility] Test Directory ([employer]). Specimen Anatomical Collection Method Collection Time Receive d Time (Source) Location / / Volume Laterality 01/02/2014 1:52 PM 4 4:10 CDT PM CDT Narrative HP CONVERSION - 01/05/2014 4:30 AM CDT Performed at [facility] [address] [place] [address] L[place] Garzagian [facility] Performing Organization Address City/[facility] Code Phon e Number HP CONVERSION 17 [...] - 01/06/2014 5:45 PM CDT Performed at [facility] [address] [place] [address] Lima Garzagian [facility] Performing Organization Address [facility] Phon e Number HP CONVERSION ANDROSTENEDIONE (01/02/2014 1:52 PM CDT) athologist Signature Androstenedione 1.250 0.260 - HP CONVERSION 2.140 ng/mL Comment: INTERPRETIVE INFORMATION: Androstenedion e, Females 18 years and older Post-menopausal: 0.13-0.82 ng/mL REFERENCE INTERVAL: Androstenedione by T MS Access complete set of age- and/or gende r-specific reference intervals for this test in the [facility] Test Directory ([employer]). Test developed and characteristics deter mined by [facility]. See Compliance Statement B : [employer]/CS Specimen Anatomical Collection Method Collection Time Receive d Time (Source) Location / / Volume Laterality 01/02/2014 1:52 PM 4 5:01 CDT PM CDT Narrative HP CONVERSION - 01/04/2014 6:34 PM CDT Performed at [facility] [address] [place] [address] Jayashreeivan Kadi [facility] Performing Organization Address [facility] Phon e Number HP CONVERSION DEHYDROEPIANDROSTERONE SULFATE PEDS (01/02/2014 1:52 PM CDT) Component Value Ref Test Analysis Performed At [facility] Range Method Time Signature Dehydroepiandrosterone 172 45 - 270 HP CONV ERSION Sulfate ug/dL Comment: REFERENCE INTERVAL: DHEAS Access complete set of age- and/or gende r-specific reference intervals for this test in the [facility] Test Directory ([employer]). Specimen Anatomical Collection Method Collection Time Receive d Time (Source) Location / / Volume Laterality 01/02/2014 1:52 PM 4 5:01 CDT PM CDT Narrative HP CONVERSION - 01/04/2014 9:05 AM CDT Performed at [facility] [address] [place] [address] Lima Garzagian [facility] Performing Organization Address City/State/ZIP Code Phon e Number HP CONVERSION documented in this encounter Visit Diagnoses Diagnosis Thyroid mass (HRC) Unspecified disorder of thyroid Hirsutism [place] or infrequent menstruation Thyroid nodule (HRC) Nontoxic uninodular goiter documented in this encounter Care Teams Mainspring Torque Tester Relationship Specialty Start Date End Date Kristine Mendez MD PCP - General 01/01/14 [address] [place] [address] documented as of this encounter
--- OUTSIDE RECORDS SUMMARY | 2022-01-24 10:57 | XMS_ITS | Encounter Summary ---
:1985 Author Organization [facility] Address [address] [place] [address] Care Team Providers Name Role Phone Unavailable Primary Care Provider Unavailable Encounter Details Date Type Department Care Team Description 07/01/2012 Imaging [place] [facility] [address] [place] [address] Social History Tobacco Use Types Packs/Day Years [...]
--- OUTSIDE RECORDS SUMMARY | 2022-01-24 10:57 | XMS_ITS | Encounter Summary ---
:1985 Author Organization [employer] Address [address] [place] [address] Care Team Providers Name Role Phone Kristine Mendez MD Primary Care Provider Reason for Visit Reason Comments MASS Encounter Details Date Type Department Care Team Description 01/01/2014 Office Visit [facility] Kristine Mendez, Thy elise whelan (Primary Dx); Medicine [facility] [address] [facility] [address] [place] [address] [place] [phone] [address] Social History Tobacco Use Types Packs/Day Years [...] included. Please call the Endocrinology dept. at [phone] to schedule your appointment. Labs today Thyroid [...] about any medicines you take. This includes hkxe-yql-hwynohp medicines. ?? Wear a medical alert bracelet [...] Where can you learn more? Go to [email or web address]. Enter E754 in the search box to learn more about Thyroid Nodules: After Your Visit. Last Revised: October 10, 2012 ?? [phone] [employer]. Care instructions adapted under license by your healthcare professional. If you have questions about a medical condition or this instruction, always ask your healthcare professional. 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 Smoking status: Never Smoker ??? Smokeless tobacco: Not on file ??? Alcohol Use: No Comment: rare ??? Drug Use: No ??? Sexual Activity: Partners: Male Control/ Protection: Other Topics Concern ??? Exercise Yes ??? Seat Belt Yes ??? Special Diet No ??? 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 Info from [facility] given on thyroid nodules. Orders Placed This Encounter Procedures ??? US Thyroid (Standard) ??? Thyroid Stimulating Hormone ??? Free T4 ??? Complete Blood Count W/Diff ??? Thyroid Peroxidase (Tpo) Antibody ??? Mononucleosis Screen ??? HIV Antibody ??? ENDOCRINOLOGY CONSULT ADULT (AMB) Patient Instructions Please call the Endocrinology dept. at [phone] to schedule your appointment. Labs today Thyroid [...] about any medicines you take. This includes nnbp-zke-eujcmae medicines. ?? Wear a medical alert bracelet [...] Where can you learn more? Go to [email or web address]. Enter E754 in the search box to learn more about Thyroid Nodules: After Your Visit. Last Revised: October 10, 2012 ?? [phone] [employer]. Care instructions adapted under license by your healthcare professional. If you have questions about a medical condition or this instruction, always ask your healthcare professional. [employer] disclaims any warranty or liability for your [...] nodes documented in this encounter Care Teams Residential Direct Support Professional Relationship Specialty Start Date End Date Kristine Mendez MD PCP - General 01/01/14 [address] [place] [address] documented as of this encounter
--- OUTSIDE RECORDS SUMMARY | 2022-01-24 10:57 | XMS_ITS | Encounter Summary ---
:1985 Author Organization [facility] Address [address] [place] [address] Care Team Providers Name Role Phone Unavailable Primary Care Provider Unavailable Encounter Details Date Type Department Care Team Description 07/01/[address] [place] [address] Scan [address] [place], [place] [address] Social History Tobacco Use Types Packs/Day Years [...]
--- OUTSIDE RECORDS SUMMARY | 2022-01-24 10:57 | XMS_ITS | Encounter Summary ---
:1985 Author Organization [facility] Address [address] [place] [address] Care Team Providers Name Role Phone Kristine Mendez MD Primary Care Provider Encounter Details Date Type Department Care Team Description 01/01/2014 Imaging [place] [facility] Thyroid mass [address] [place] [address] Social History Tobacco Use Types Packs/Day Years [...] to confirm the nature. Kristine Mendez MD [facility] documented in this encounter Visit Diagnoses Diagnosis Thyroid mass (HRC) Unspecified disorder of thyroid documented in this encounter Care Teams Calender Tender Relationship Specialty Start Date End Date Kristine Mendez MD PCP - General 01/01/14 [address] [place] [address] documented as of this encounter
--- OUTSIDE RECORDS SUMMARY | 2022-01-24 10:57 | XMS_ITS | Encounter Summary ---
:1985 Author Organization [facility] Address [address] [place] [address] Care Team Providers Name Role Phone Unavailable Primary Care Provider Unavailable Encounter Details Date Type Department Care Team Description 07/21/2012 Notes/Orders [place] [facility] Jennifer Aguilera, Cystitis [address] [facility] QA AUDITOR, TRIMMING PRESS OPERATOR [place], [place] [address] Social History Tobacco Use [...] UA, NO MICROSCOPIC (07/21/2012 12:10 PM CDT) [facility] I[facility]PPIN Method Time Signature Urine Color Yellow [facility] [...] PM CDT PM CDT Jennifer Alexis APRN, TRIMMING PRESS OPERATOR LAB_1 Performing Organization Address City/State/ZIP Code Phon e Number [facility] [phone] [address] URINE CULTURE (07/21/2012 12:10 PM CDT) Component Value Ref Test Analysis Performed At [facility] INAPPIN Range Method Time Signature Specimen Urine [facility] Description Midstream Special Unspecified [facility] Requests Culture > 100,000 [facility] col/ml Escherichia coli Report Status Final [facility] 07/23/2012 Organism > 100,000 [facility] col/ml Escherichia coli Specimen Anatomical Collection Method Collection Time Receive d Time (Source) Location / / Volume Laterality 07/21/2012 12:10 07/21/2012 4:01 PM CDT PM CDT Organism Antibiotic Method Susceptibility > 100,000 col/ml Amox/K Clavulanate YDAI <=8/4 escherichia coli Susceptible SUSCEPTIBLE > 100,000 [...] Alexis APRN, CNP LAB_1 Performing Organization Address City/State/[facility] Code [facility] e Number [facility] [phone] [address] documented in this encounter Visit Diagnoses Diagnosis Cystitis Cystitis, unspecified documented in this encounter
--- OUTSIDE RECORDS SUMMARY | 2022-01-24 10:57 | XMS_ITS | Encounter Summary ---
:1985 Author Organization [employer] Address [address] [place] [address] Care Team Providers Name Role Phone Kristine Mendez MD Primary Care Provider Reason for Visit Procedure/Equipment (Routine) - Canceled Specialty Diagnoses / Procedures Referred By Contact Refer red To Contact Diagnoses Left breast mass Madeleine Page, OAKES MACHINE OPERATOR, REVERSAL PRINT INSPECTOR [place] [address] [place] [address] Referral ID Status Reason Start Date Expiration Date Visits V isits Requested Authorized [id number] Canceled 05/28/2019 08/26/2020 1 1 Encounter Details Date Type Department Care Team Description 06/03/2019 Ancillary Procedure [facility] 3850 Madeleine Page , Left breast mass Mammography OAKES MACHINE OPERATOR, REVERSAL PRINT INSPECTOR 3850 [facility] [address] [place] [address] [phone] Social History Tobacco Use Types Packs/Day Years [...] breast documented in this encounter Care Teams Rn Gastroenterology Relationship Specialty Start Date End Date Kristine Mendez MD PCP - General 01/01/[address] [place] [address] documented as of this encounter
--- OUTSIDE RECORDS SUMMARY | 2022-01-24 10:57 | XMS_ITS | Encounter Summary ---
:1985 Author Organization [employer] Address [address] [place] [address] Care Team Providers Name Role Phone Kristien Mendez MD Primary Care Provider Reason for Visit Reason Comments Procedure Encounter Details Date Type Department Care Team Description 01/27/2014 Initial Consult [facility] 3800 Leann Magaña ntoxic uninodular goiter (Primary Dx); Endocrinology MD Eduar Polycystic ovaries 3800 [facility] [address] [facility] [place] [id number] Social History Tobacco Use Types Packs/Day Years [...] you in 6 months. You can call [phone] to set up an appointment. If there [...] Filed: 02/18/142044 Note Time: 01/28/1445 Status: Signed Equipment Validation Engineer: Leann Magaña MD (Physician) NAME: YAMILET LORA MR#: [id number] CSN: [id number] AUTHENTICATING CLINICIAN: Leann Magaña MD CONFIRM #: [id number] LOC: 432 CLINIC PROGRESS NOTE DATE OF [...] reviewing treatment plan. RMM:MEDQ C: CONFIRM #: [id number] documented in this encounter Miscellaneous Notes Miscellaneous - 06/08/2016 3:31 PM CSTNotes Recorded by Leann Magaña MD on 01/28/2014 at 1:23 PMPoonuru pt. Please let pt know that thyroid fna was benign. RTC in 6 months as planned. BLOCKER documented in this encounter Plan of Treatment [...] CDT ? FINAL CYTOLOGY REPORT Pathology #: [id number] ?Date Obtained: 01/27/2014 ? Date Received: 01/27/2014 [...] a benign adenomatoid no dule. CPT Codes: ?16813 x 1 ? End of Report Transcriptions [...] ovaries documented in this encounter Care Teams Personal Financial Representative Relationship Specialty Start Date End Date Kristine Mendez MD PCP - General 01/01/14 [address] [address] [address] documented as of this encounter
--- OUTSIDE RECORDS SUMMARY | 2022-01-24 10:57 | XMS_ITS | Encounter Summary ---
:1985 Author Organization [employer] Address [address] [place] [address] Care Team Providers Name Role Phone Kristine Mendez MD Primary Care Provider Reason for Referral (Routine) - Closed Specialty Diagnoses / Procedures Referred By Contact Refer red To Contact Diagnoses Family history of colon cancer Gabriela Mcfarlane DO Procedures Endoscopy, colon, diagnostic [address] [place] [address] Referral ID Status Reason Start Date Expiration Date Visits Requ ested Visits Authorized [id number] Closed 01/10/2019 04/10/2020 1 1 Reason for Visit Reason Comments Annual Exam Encounter Details Date Type Department Care Team Description 01/10/2019 Office Visit [facility] Gabriela Mcfarlane physical exam (Primary Dx); Services-DIGITAL MARKETING ASSISTANT M, DO Pap smear for cervical cancer screening; [address] [facility], [address] Robles gu history of colon cancer [address] [place] [address] [phone] (Wo rk) Social History Tobacco Use Types [...] DO - 01/10/2019 10:00 AM CDT [facility] Chief Complaint: Routine health [...] Procedure Laterality Date ??? WISDOM TEETH EXTRACTION Receiving Coordinator Hx: Last Pap smear: 2013 History of [...] turations were monitored ? continuou sly. The [id number] was ? introduce d through the anus [...] Code(s): ?? --- Professional - -- ? 84003, Co lonoscopy, flexible; with ? removal o f tumor(s), polyp(s), or ? other les ion(s) by snare technique ? 83379, Co lonoscopy, flexible; with ? directed submucosal injection(s), any ? substance ? G0500, Mo derate sedation services ? provided by the same physician or ? other [facility] ? professio nal performing a [...] time may ? [place] [address], as ? appropria te) Diagnosis Code(s): ?? --- Professional - -- ? Z80.0, Fa sebastian history of malignant ? neoplasm of digestive organs ? D12.0, Be nign neoplasm of cecum CPT copyright 2018 [employer]. All rights reserved. The codes documented in this report are preliminary and upon columnist/commentator review may be revised to meet current [...] and oxygen saturations were monitored continuously. The [id number] was introduced through the anus and advanced [...] previously scheduled. Procedure Code(s): --- Professional --- 35364, Colonoscopy, flexible; with removal of tumor(s), polyp(s), or other lesion(s) by snare technique 26118, Colonoscopy, flexible; with directed submucosal injection(s), any substance G0500, Moderate sedation services provided by the same physician or other qualified health body care manager performing a gastrointestinal endoscopic service that sedation supports, requiring the presence of an independent trained observer to assist in the monitoring of the patient's level of consciousness and physiological status; initial 15 minutes of intra-service time; patient age 5 years or older (additional time may be reported with [address], as appropriate) Diagnosis Code(s): --- Professional --- Z80.0, Family history of malignant neoplasm of digestive organs D12.0, Benign neoplasm of cecum CPT copyright 2018 [employer]. All rights reserved. The codes documented in this report are preliminary and upon columnist/commentator review may be revised to meet current compliance requirements. Jefferson Carrasco MD 02/10/2019 2:30:24 PM This document has been electronically si gned. Number of Addenda: 0 Note Initiated On: 02/10/2019 2:51 PM Endoscopy Report Gabriela GOLDBERG [facility] PROCEDURE ORDERABLES Performing Organization Address City/State/ZIP Code Phon e Number GI (PROVATION) GI (PROVATION) [place], [place] HPV with 16 18 Genotyping (01/10/2019 10:37 AM CDT) [facility] Method Time Signature HPV High Risk Not Detected Not detected 01/14/2019 [facility] Type 16 PCR 2:10 PM CDT LABORATORY Comment: F;NONE HPV High Risk Not Detected Not Detected 01/14/2019 2:10 PM [facility] Type 18 PCR CDT Comment: F;NONE HPV High Risk Not Detected Not detected 01/14/2019 2:10 PM [facility] Other Than CDT 16/18 Comment: F;NONE Specimen Anatomical Collection Method Collection Time Receive d Time (Source) Location / / Volume Laterality Cervical Broom ENTIRE ENDOCERVIX 01/10/2019 10:37 12/29 / Unknown AM CDT 10:42 AM CDT Narrative [facility] - 01/14/2019 2:10 P M CDT [...] and its pe rformance characteristics determined by [employer] [facility]. It has not been cleared or approved by the FDA. The laboratory ??is required under CLIA as qualified to perform high-complexity kim ting. This test is used for clinical purposes. It should not be regarded as investigational or for research. Gabriela Mcfarlane DO LAB_1 Performing Organization Address City/State/ZIP Code Phon e Number [facility] [address] [place] [address] PAP Test (01/10/2019 10:37 AM CDT) Component Value Ref Test Analysis Performed At [facility] Method Time Signature Case Report Pap ? Case: [id number] ? 01/16/2019 [facility] Authorizing Provider: ??Gabriela Tomlinson, DO ?Collected: ? 01/10/2019 10:37 AM ? 10:41 AM LABORATOR Y Ordering Location: ? [facility] ? Received: ?01/10/2019 10:42 AM ? CDT ? Services-DIGITAL MARKETING ASSISTANT ? First Screen: ? Adrian, Paula L ? Specimen: ?Pap Test, Rou enriqueta, Cervix/Endocervix ? Pap Specimen Satisfactory for 01/16/2019 [facility] Adequacy evaluation, 10:41 AM LABORATORY endocervical/chong CDT sformation zone component present. Pap Negative for 01/16/2019 [facility] Electr onically Interpretation intraepithelial 10:41 AM LABORATOR Y signed by lesion or CDT Lisseth, malignancy Paula tuttle (NILM). 01/16/2019 at 10:41 AM Gross The specimen is 01/16/2019 [facility] Description received in 10:41 AM LABORATORY [facility] [...] false-negative reports may occur. Embedded Images 01/16/2019 [facility] 10:41 AM LABORATORY CDT Specimen Anatomical Collection Method Collection Time Receive d Time (Source) Location / / Volume Laterality Other Specimen ENTIRE ENDOCERVIX 01/10/2019 10:37 12/29 Type / Unknown AM CDT 10:42 AM CDT Comment: LMP: Patient's last menstrual p eriod was 12/05/2018. Gabriela Mcfarlane DO LAB PATHOLOGY Performing Organization Address City/State/ZIP Code Phon e Number [facility] [address] [place] [address] documented in this encounter Visit Diagnoses Diagnosis [...] tract documented in this encounter Care Teams Cold Press Operator Relationship Specialty Start Date End Date Kristine Mendez MD PCP - General 01/01/14 [address] [place] [address] documented as of this encounter
--- OUTSIDE RECORDS SUMMARY | 2022-01-24 10:57 | XMS_ITS | Encounter Summary ---
:1985 Author Organization [facility] [place] Address [address] [place] [address] Care Team Providers Name Role Phone Kristine Mendez MD Primary Care Provider Reason for Visit Reason Comments ABDOMINAL CRAMPING--ED Encounter Details Date Type Department Care Team Description 09/29/2020 Nurse Triage Careline Unknown, ABDOMINAL CRAMPING--ED [address] Physician [place], [place] [address] [phone] [place], [place] [address] Social History Tobacco Use Types Packs/Day Years [...] goes and lasts for a few seconds. [place]/Parity: Gestational Age (by GAURAV or LMP): per [...] - VAGINAL BLEEDING LESS THAN 20 WEEKS [id number] Advised careline available 20/11. Call back for any concerns, new or worsening symptoms. Sheila Morris - 09/29/2020 3:27 PM CDT Verified patient identity using three identifiers: Yes Caller's relationship to patient: Self At which care system or clinic is the patient normally seen? [facility] Clinics Symptoms Describe the reason for call/symptoms [...] on filedocumented in this encounter Care Teams Hydrography Teacher Relationship Specialty Start Date End Date Kristine Mendez MD PCP - General 01/01/14 [address] [address] [place] [address] documented as of this encounter
--- OUTSIDE RECORDS SUMMARY | 2022-01-24 10:57 | XMS_ITS | Encounter Summary ---
:1985 Author Organization [employer] Address [address] [place] [address] Care Team Providers Name Role Phone Kristine Mendez MD Primary Care Provider Reason for Visit Reason Comments RESULTS, TEST Encounter Details Date Type Department Care Team Description 01/01/2014 Telephone [facility] Pete Mendez MD RESULTS, TEST Medicine [address] [facility] [address] [place] [address] [place] [address] [phone] Social History Tobacco Use Types Packs/Day Years [...] on filedocumented in this encounter Care Teams Freight Shipping Agent Relationship Specialty Start Date End Date Kristine Mendez MD PCP - General 01/01/14 [address] [place] [place] [id number] documented as of this encounter
--- OUTSIDE RECORDS SUMMARY | 2022-01-24 10:57 | XMS_ITS | Encounter Summary ---
:1985 Author Organization [employer] Address [address] [place] [address] Care Team Providers Name Role Phone Kristine Mendez MD Primary Care Provider Reason for Visit Reason Comments RESULTS, TEST Encounter Details Date Type Department Care Team Description 01/28/2014 Telephone [facility] [address] Jimena Magaña cca, MD RESULTS, TEST Endocrinology [address] [place] [address] [place] [address] [phone] Social History Tobacco Use Types Packs/Day Years [...] on filedocumented in this encounter Care Teams C Software Developer Relationship Specialty Start Date End Date Kristine Mendez MD PCP - General 01/01/14 [address] [address] [place] [address] documented as of this encounter
--- OUTSIDE RECORDS SUMMARY | 2022-01-24 10:57 | XMS_ITS | Encounter Summary ---
:1985 Author Organization [facility] [employer] Address [address] [place] [address] Care Team Providers Name Role Phone Kristine Mendez MD Primary Care Provider Reason for Visit Reason Comments Pharyngitis x 1 week Encounter Details Date Type Department Care Team Description 04/17/2017 Office Visit Amy Berger e Radha Alejandra, Acute pharyngitis, unspecifi ed etiology (Primary Dx); [address] PA-C Sore throat [place] Reyes [phone] [facility] [phone] [place], [place] [address] Social History Tobacco Use Types Packs/Day Years [...] Comments Blood Pressure 145/83 04/17/2017 8:54 AM BUSINESS BANKER Pulse 83 04/17/2017 8:54 AM BUSINESS BANKER Temperature 36.7 ??C (98 ??F) 04/17/2017 8:54 AM BUSINESS BANKER Respiratory Rate - - Oxygen Saturation 100% 04/17/2017 8:54 AM BUSINESS BANKER Inhaled Oxygen Concentration - - Weight 63.7 kg (140 lb 8 oz) 04/17/2017 8:54 AM BUSINESS BANKER Height - - Body Mass Index 20.3 [...] cup of warm water. ?? Take an buol-nvd-gqywctj pain medicine, such as acetaminophen (Tylenol), ibuprofen (Advil, Motrin), or naproxen (Aleve). Read and follow all instructions on the label. ?? Be careful when taking npsr-ffh-vtosdzo cold or flu medicines and Tylenol at [...] may help decrease throat pain. ?? Use vcxj-arg-ajcinvg throat lozenges to soothe pain. Regular cough [...] can you learn more? 1. Go to [employer] or [employer]. 2. Enter U420 in the search box. Current as of: November 26, 2015 Content Version: 11.3 ?? [id number] [employer], [employer]. Thank you so much for choosing [employer] [facility]. It was a pleasure taking care of you today! Important phone numbers: Daytime Clinic information: [phone] Appointment center: [phone] Evenings & Weekends CareLine: [phone] Urgent Care Hotline: [phone] [facility], Emergency Department [address] [place] [address] NESS BANKER documented in this encounter Progress Notes Radha [...] with salt water Pt was seen at [facility] on 04/12 and had a negative rapid [...] orders and patient instructions Radha Alejandra PA-C NESS BANKER documented in this encounter Plan of Treatment Not on filedocumented as of this encounter Procedures Procedure Name Priority Date/Time Associated Diagnosis Comme nts STREP GRP A, RAPID Waiting 04/17/2017 8:56 AM Sore throat Res ults for this SCREEN BUSINESS BANKER procedure are i n the results section. documented in this encounter Results Strep Grp A, Rapid Screen Perform a culture if negative screen? No (04/17/2017 8:56 AM BUSINESS BANKER) [facility] gist Method Time Signature Grp A Rapid Negative NEG [facility] Specimen Anatomical Collection Method Collection Time Receive d Time (Source) Location / / Volume Laterality 04/17/2017 8:56 AM 7 9:03 BUSINESS BANKER AM BUSINESS BANKER Narrative [facility] - 04/17/2017 9:[address] Performed at [facility], [address], [place] [address] Radha Alejandra PA-C LAB_1 Performing Organization Address City/State/ZIP Code Phon e Number [facility] [phone] documented in this encounter Visit Diagnoses Diagnosis Acute pharyngitis, unspecified etiology - Primary Sore throat Acute pharyngitis documented in this encounter Care Teams Merchandising Internship Relationship Specialty Start Date End Date Kristine Mendez MD PCP - General 01/01/14 [address] [place]BB[place] [id number] documented as of this encounter
--- OUTSIDE RECORDS SUMMARY | 2022-01-24 10:57 | XMS_ITS | Encounter Summary ---
:1985 Author Organization [facility] Address [address] [place] [address] Care Team Providers Name Role Phone Kristine Mendez MD Primary Care Provider Encounter Details Date Type Department Care Team Description 01/01/2014 Lab Visit [facility] Thyroid mass; [address] [facility] Lymphadenopathy [place], [place] [address] Social History Tobacco Use Types Packs/Day Years [...] Results (ABNORMAL) Differential (01/01/2014 11:02 AM CDT) [facility] Method Time Signature Absolute 1.6 (L) [...] CDT Performed at [facility], [address] [place] [address] Kristine Mendez MD LAB_1 Performing Organization Address [facility] Phon e Number HP CONVERSION HIV ANTIBODY (01/01/2014 11:02 AM CDT) athologist Signature HIV 1/HIV 2 Non-React Non-Reacti HP CONVERSION ve Specimen Anatomical Collection Method Collection Time Receive d Time (Source) Location / / Volume Laterality 01/01/2014 11:02 01/01/2014 3:54 AM CDT PM CDT Kristine Mendez MD LAB_1 Performing Organization Address [facility] Phon e Number HP CONVERSION [place] Test (01/01/2014 11:02 AM CDT) [facility] Method Time Signature Mononucleosis Negative Negative HP CONVERSION Screen Specimen Anatomical Collection Method Collection Time Receive d Time (Source) Location / / Volume Laterality 01/01/2014 11:02 01/01/2014 AM CDT 11:02 AM CDT Narrative HP CONVERSION - 01/01/2014 11:14 AM CDT Performed at [facility], [address] [place] [address] Kristine Mendez MD LAB_1 Performing Organization Address [facility] Phon e Number HP CONVERSION Antithyroid Peroxidase (01/01/2014 11:02 AM CDT) athologist Signature Thyroid 2.8 0.0 - 9.0 HP CONVERSION Peroxidase (TPO) Antibodies Specimen Anatomical Collection Method Collection Time Receive d Time (Source) Location / / Volume Laterality 01/01/2014 11:02 01/01/2014 4:01 AM CDT PM CDT Narrative HP CONVERSION - 01/02/2014 2:51 PM CDT Performed at [employer] [address] [place] [address] Kristine Mendez MD LAB_1 Performing Organization Address [...] CDT Performed at [facility], [address] [place] [address] Kristine Mendez MD LAB_1 Performing Organization Address City/State/ZIP Code Phon e Number HP CONVERSION Free T4 (01/01/2014 11:02 AM CDT) athologist Signature Thyroxine, Free 1.1 0.8 - 1.8 HP CONVERSION ng/dL Specimen Anatomical Collection Method Collection Time Receive d Time (Source) Location / / Volume Laterality 01/01/2014 11:02 01/01/2014 3:54 AM CDT PM CDT Kristine Mendez MD LAB_1 Performing Organization Address City/[facility] Phon e Number HP CONVERSION THYROID STIMULATING [...] nodes documented in this encounter Care Teams Utilization Manager Relationship Specialty Start Date End Date Kristine Mendez MD PCP - General 01/01/14 [address] [address] N[place] DOBBINS [id number] documented as of this encounter
--- OUTSIDE RECORDS SUMMARY | 2022-01-24 10:57 | XMS_ITS | Encounter Summary ---
:1985 Author Organization [facility] Address [address] [place] [address] Care Team Providers Name Role Phone Kristine Mendez MD Primary Care Provider Reason for Visit Procedure/Equipment (Routine) - Incomplete Specialty Diagnoses / Procedures Referred By Contact Refer red To Contact Diagnoses Left breast mass Madeleine Page, DIRECTOR CHILD, UPS DRIVER [place] [address] [place] [address] Referral ID Status Reason Start Date Expiration Date Visits V isits Requested Authorized [id number] Incomplete 05/28/2019 08/26/2020 1 1 Encounter Details Date Type Department Care Team Description 06/03/2019 Ancillary Procedure [facility] [address] Madeleine Page , Left breast mass Mammography DIRECTOR CHILD, UPS DRIVER [address] [facility] [address] [place] [address] [phone] Social History Tobacco Use Types Packs/Day Years [...] PM CST Left breast pathology fibroadenoma. LOGAN TECH Madeleine Page APRN, CNP - 06/03/2019 2:15 PM CST Left breast biopsy pathology fibroadenoma and stromal fibrosis. Start screening mammogram at age 38.Sent Trapster message. MS-NAWAF TECH documented in this encounter Plan of Treatment Not on filedocumented as of this encounter Procedures Procedure Name Priority Date/Time Associated Diagnosis Comme nts MM US BX BREAST LT Routine 06/03/2019 2:34 PM Left breast mass Results for this TELE TECH procedure are i n the results section. SURGICAL PATHOLOGY, Routine 06/03/2019 2:34 PM Left breast mas s Results for this BREAST TELE TECH procedure are i n the results section. documented in this encounter Results MM US Bx Breast Lt (06/03/2019 2:34 PM TELE TECH) Anatomical Region Laterality Modality Breast Left Ultrasound Specimen (Source) Anatomical Collection Method Collection Time Re ceived Time Location / / Volume Laterality 06/03/2019 2:11 PM TELE TECH Impressions 06/05/2019 10:46 AM TELE TECH ULTRASOUND GUIDED BREAST BIOPSY ? HISTORY: ??Palpable [...] ERIC Surgical Path, Breast (06/03/2019 2:34 PM TELE TECH) Component Value Ref Test Analysis Performed At [facility] gist Range Method Time Signature Case Report Surgical Pathology ?Case: [id number] ? 06/04/2019 [facility] Authorizing Provider: ??Madeleine Azevedo APRN, CNP Collected: ? 06/03/2019 02:34 PM ? 1:42 PM TELE TECH LABORATOR Y Ordering Location: ? [place] [address] ? Received: ?06/03/2019 03:50 PM ? Mammography ? Pathologist: ? Avtar Martinez MD ? Specimen: ?Breast, left, 12 o'clock ultrasound ? FINAL A. Breast, left, 12 o'clock ultrasound, biopsy: 06/04/2019 [facility] Electronically DIAGNOSIS ?? Fibroadenoma and stromal fibrosis 1:4 2 PM TELE TECH LABORATORY signed by Avtar Martinez MD has reviewed this case and concurs with t elsie diagnosis. MD Joesph on 06/04/2019 a t 1:42 PM Gross A. The specimen is received in formalin and labeled with the patient's name and Breast, left, 12 o'clock ultrasound.?? The specimen consists of 2.8 x 0.6 x 0.3 cm aggregate of multiple entangled and f 08/2019 [facility] Description ragmented landeros-yellow cores o f soft tissue.?? The specimen is inked green.?? The specimen was collected and placed in formalin at 2:33 PM, 06/03/2019.?? The specimen is entirely submitted in 1 cassette. SH 1:42 PM TELE TECH LABORATORY Clinical palpable 06/04/2019 [facility] Information 1:42 PM TELE TECH LABORATORY Microscopic Microscopic 06/04/2019 [facility] Description examination is 1:42 PM TELE TECH LABORATORY performed. Embedded 06/04/2019 [facility] Images 1:42 PM TELE TECH LABORATORY Specimen Anatomical Collection Method Collection Time Receive d Time (Source) Location / / Volume Laterality Tissue BREAST STRUCTURE / 06/03/2019 2:34 PM 07/2019 3:50 Unknown TELE TECH PM TELE TECH Madeleine Page APRN, UPS DRIVER LAB PATHOLOGY Performing Organization Address City/State/ZIP Code Phon e Number [facility] [address] [place] [address] documented in this encounter Visit Diagnoses Diagnosis Left breast mass Lump or mass in breast documented in this encounter Administered Medications Inactive Administered Medications - up to 3 most recent administrations Medication Order MAR Action Action Date Dose Rate Site lidocaine (XYLOCAINE) 1 % Given 06/03/2019 3:00 PM TELE TECH 10 mL Other injection 10 mL 10 mL, Subcutaneous, ONCE, On Sun06/03/19 at 1500, For 1 dose lidocaine-epinephrine 1 %-1:[id number] Given 06/03/2019 3:00 PM TELE TECH 6 mL Other injection 6 mL 6 mL, Subcutaneous, ONCE, On Sun06/03/19 at 1500, For 1 dose documented in this encounter Care Teams Software Analyst Relationship Specialty Start Date End Date Kristine Mendez MD PCP - General 01/01/14 [address] [place] [address] documented as of this encounter
--- OUTSIDE RECORDS SUMMARY | 2022-01-24 10:57 | XMS_ITS | Encounter Summary ---
:1985 Author Organization [employer] Address [address] [place] [address] Care Team Providers Name Role Phone Kristine Mendez MD Primary Care Provider Reason for Visit Reason Comments LAB RESULTS Encounter Details Date Type Department Care Team Description 06/04/2019 Telephone [facility] [address] Madeleine Page, FRENCH DRAWER, LAB RESULTS Mammography LACQUER SPRAYER [address] [address] [place] [address] [place], [place] [address] (Wo rk) Social History Tobacco Use Types [...] call with any other concerns or questions. NIGHT CAREGIVER documented in this encounter Plan of Treatment Not on filedocumented as of this encounter Visit Diagnoses Not on filedocumented in this encounter Care Teams Radiation Engineer Relationship Specialty Start Date End Date Kristine Mendez MD PCP - General 01/01/14 [address] [place] [address] documented as of this encounter
--- OUTSIDE RECORDS SUMMARY | 2022-01-24 10:57 | XMS_ITS | Encounter Summary ---
:1985 Author Organization [employer] Address [address] [place] [address] Care Team Providers Name Role Phone Kristine Mendez MD Primary Care Provider Reason for Visit Reason Comments Follow-up Encounter Details Date Type Department Care Team Description 03/02/2014 Office Visit [facility] Apolonia Cm, Pelvic pa in in female (Primary Dx); Medicine Screening for malignant neoplasm of the cervix [address] [place] [address] [place] [address] [phone] Social History Tobacco Use Types Packs/Day Years Used Date Smoking Tobacco: Never Alcohol Use Standard Drinks/Week Comments No 0 (1 standard drink = 0.6 oz pure alcoho l) Sex Assigned at Date Recorded Not on file documented as of this encounter Last Filed Vital Signs Vital Sign Reading Time Taken Comments Blood Pressure 124/80 03/02/2014 3:55 PM SECURITY OPERATIONS MANAGER Pulse 88 03/02/2014 3:55 PM SECURITY OPERATIONS MANAGER Temperature - - Respiratory Rate - - Oxygen Saturation - - Inhaled Oxygen Concentration - - Weight 59 kg (130 lb) 03/02/2014 3:55 PM SECURITY OPERATIONS MANAGER Height - - Body Mass Index 18.79 [...] up - TBD based on lab results RITY OPERATIONS MANAGER documented in this encounter Plan of Treatment Not on filedocumented as of this encounter Procedures Procedure Name Priority Date/Time Associated Comments Diagnosis VAGINOSA DNA PROBE Routine 03/02/2014 4:20 PM Pelvic pain in R esults for this SECURITY OPERATIONS MANAGER female procedure are i n the results section. HPV WITH 16 18 Routine 03/02/2014 4:20 PM Results for this GENOTYPING, SECURITY OPERATIONS MANAGER procedure are i n CERVICAL/ENDOCERVICAL the re sults section. ANATOMICAL PATH Routine 03/02/2014 4:20 PM Result s for this LIQUID BASED SECURITY OPERATIONS MANAGER procedure are i n the results section. PAP SMEAR ORDER Routine 03/02/2014 4:20 PM Screening for Resul ts for this SECURITY OPERATIONS MANAGER malignant neoplasm procedure are in of the cervix the results section. SEXUALLY TRANSMITTED Routine 03/02/2014 4:20 PM Pelvic pain in Results for this DISEASE PROBE SECURITY OPERATIONS MANAGER female procedure are in the results section. documented in this encounter Results VAGINOSA DNA PROBE (03/02/2014 4:20 PM SECURITY OPERATIONS MANAGER) [employer] gist Method Time Signature Source Vaginal HP CONVERSION Site HP CONVERSION Vaginosis DNA No Melody HP CONVERSION Probe present Vaginosis DNA No Gardnerella HP CONVERSI ON Probe present Vaginosis DNA No Trichomonas HP CONVERSI ON Probe present Specimen (Source) Anatomical Collection Method Collection Time Re ceived Time Location / / Volume Laterality Vaginal: 03/02/2014 4:20 PM SECURITY OPERATIONS MANAGER Apolonia Cm MD LAB_1 Performing Organization Address City/State/ZIP Code Phon e Number HP CONVERSION SEXUALLY TRANSMITTED DISEASE PROBE (03/02/2014 4:20 PM SECURITY OPERATIONS MANAGER) Component Value Ref Test Analysis Performed At [facility] Range Method Time Signature Source Endocervical for HP CONVERSION molecular testing Site HP CONVERSION Chlamydia Chlamydia HP CONVERSION Trach DNA trachomatis NEGATIVE by DNA amplification GC DNA Neisseria HP CONVERSION gonorrhea NEGATIVE by DNA amplification. Specimen (Source) Anatomical Collection Method Collection Time Re ceived Time Location / / Volume Laterality Endocervical for 03/02/2014 4:20 molecular testing: PM SECURITY OPERATIONS MANAGER Apolonia Cm MD LAB_1 Performing Organization Address City/State/ZIP Code Phon e Number HP CONVERSION Pap Smear (03/02/2014 4:20 PM SECURITY OPERATIONS MANAGER) Specimen (Source) Anatomical Collection Method Collection Time Re ceived Time Location / / Volume Laterality 03/02/2014 4:20 PM SECURITY OPERATIONS MANAGER Narrative HP CONVERSION - 03/18/2014 7:07 PM SECURITY OPERATIONS MANAGER FINAL GYNECOLOGICAL CYTOLOGY REPORT Pathology #: [id number] ?Date Obtained: 03/02/2014 ? Date Received: 03/04/2014 [...] with 16 18 Genotyping (03/02/2014 4:20 PM SECURITY OPERATIONS MANAGER) [facility] Method Time Signature HPV [...] and its pe rformance characteristics determined by [facility] [employer]. It has not been cleared or approved by [facility]. The laboratory is regulated under CLIA as qualified to perform high-complexity testing. This test is used for clinical purposes. It should not be regarded as investigational or fo r research. Specimen Anatomical Collection Method Collection Time Receive d Time (Source) Location / / Volume Laterality 03/02/2014 4:20 PM 4 4:20 SECURITY OPERATIONS MANAGER PM SECURITY OPERATIONS MANAGER Apolonia Cm MD LAB_1 Performing Organization Address City/State/ZIP Code Phon e Number HP CONVERSION Pap Smear Order (03/02/2014 4:20 PM SECURITY OPERATIONS MANAGER) [facility] gist Method Time Signature Pap Smear Collected HP CONVERSION Monolayer tracking test Specimen Anatomical Collection Method Collection Time Receive d Time (Source) Location / / Volume Laterality 03/02/2014 4:20 PM 4 4:59 SECURITY OPERATIONS MANAGER AM SECURITY OPERATIONS MANAGER Apolonia Cm MD LAB_1 Performing Organization Address City/State/ZIP Code Phon e Number HP CONVERSION documented in this encounter Visit Diagnoses Diagnosis Pelvic pain in female - Primary Unspecified symptom associated with fema le genital organs Screening for malignant neoplasm of the cervix documented in this encounter Care Teams Vice President Quality Improvement Relationship Specialty Start Date End Date Kristine Mendez MD PCP - General 01/01/14 [address] [place] [address] documented as of this encounter
--- OUTSIDE RECORDS SUMMARY | 2022-01-24 10:57 | XMS_ITS | Encounter Summary ---
:1985 Author Organization [facility] Address [address] [place] [address] Care Team Providers Name Role Phone Kristine Mendez MD Primary Care Provider Encounter Details Date Type Department Care Team Description 01/31/2019 Notes/[facility]ders [facility] [address] Gaurang Carrasco MD Gastroenterology [address] [place] [address] [place] [address] [phone] Social History Tobacco Use Types Packs/Day Years [...] filedocumented in this encounter Care Teams Health Diagnostics Teacher Relationship Specialty Start Date End Date Kristine Mendez MD PCP - General 01/01/14 [address] [place] [address] documented as of this encounter
--- OUTSIDE RECORDS SUMMARY | 2022-01-24 10:57 | XMS_ITS | Encounter Summary ---
:1985 Author Organization [facility] Address [address] [place] [address] Care Team Providers Name Role Phone Kristine Mendez MD Primary Care Provider Encounter Details Date Type Department Care Team Description 11/11/2017 edith Osuna [phone] Social History Tobacco Use Types Packs/Day Years [...] an antibiotic. I sent a prescription to [facility]/pharmacy. I?ve prescribed high dose amoxicillin, which [...] 7 days Note: Refills: None Sent To: [facility]/pharmacy [id number] [place] [address]. [place] [address] Treatment Plan Self Care Tip Topics Inflammation [...] orders amoxicillin (amoxicillin) fluticasone (fluticasone) Allergies None [facility] [employer] Information [facility] We are an online clinic open 20/11. If you have any questions or comments about this visit, please call or email [email or web address]. FAMILY MEDICINEEDITH PROVIDER - 11/11/2017 12:00 AM [...] plan for free. Feel better soon. Rebeca CAREERS ADVISER Treatment Plan Let?s get you feeling better in the next 24 hours by using a prescription nasal steroid and an effective blend of muff-qyr-ppksmpb products to get you better faster. The [...] the virus. I sent your prescription to [facility]/pharmacy . If your symptoms don?t improve after 24 hours, or if you have questions, Request a Call Back and we?ll adjust your treatment for free. Order(s) fluticasone 50 mcg/actuation spray,suspension [place] 2 spray into both nostrils once a day as directed for 30 days Note: Refills: 2 Sent To: [facility]/pharmacy [address] [place] [address] Treatment Plan Self Care Tip Topics Your [...] longer term allergy plan, much like an new car make ready mechanic would, to treat chronic nasal congestion and [...] None Current orders fluticasone (fluticasone) Allergies None [facility] [employer] [facility] We are an online clinic open 20/11. If you have any questions or comments about this visit, please call or email [email or web address]. documented in this encounter Plan of Treatment Not on filedocumented as of this encounter Visit Diagnoses Not on filedocumented in this encounter Care Teams Apartment Hotel Manager Relationship Specialty Start Date End Date Kristine Mendez MD PCP - General 01/01/14 [address] [place] [address] documented as of this encounter
--- OUTSIDE RECORDS SUMMARY | 2022-01-24 10:57 | XMS_ITS | Encounter Summary ---
:1985 Author Organization [facility] Address [address] [place] [address] Care Team Providers Name Role Phone Kristine Mendez MD Primary Care Provider Reason for Visit Procedure/Equipment (Routine) - Incomplete Specialty Diagnoses / Procedures Referred By Contact Refer red To Contact Diagnoses Left breast mass Madeleine Page, FILES SUPERVISOR, PHYSICAL SCIENCE AIDE Procedures [facility] [place] [address] [place] [address] Referral ID Status Reason Start Date Expiration Date Visits V isits Requested Authorized [id number] Incomplete 05/23/2019 08/21/2020 1 1 Encounter Details Date Type Department Care Team Description 05/28/2019 Ancillary Procedure [facility] [address] , Left breast mass Mammography FILES SUPERVISOR, PHYSICAL SCIENCE AIDE [address] [facility] [address] [place] [address] [phone] Social History Tobacco Use Types Packs/Day Years [...] Name Priority Date/Time Associated Diagnosis Comme nts [facility] US BREAST LT Routine 05/28/2019 3:07 PM Left breast mass R esults for this DATABASE CONSULTANT procedure are i n the results section. documented in this encounter Results (ABNORMAL) [facility] US Breast Lt (05/28/2019 3:07 PM DATABASE CONSULTANT) Anatomical Region Laterality Modality Breast Left Ultrasound Specimen (Source) Anatomical Collection Method Collection Time Re ceived Time Location / / Volume Laterality 05/28/2019 2:58 PM DATABASE CONSULTANT Impressions 05/28/2019 3:44 PM DATABASE CONSULTANT HISTORY: Left breast mass 12:00 p.m., 2 [...] is indeterminate. Ultrasound-guided biopsy is recommended. The [facility] will attempt to schedule the [...] is indeterminate. Ultrasound-guided biopsy is recommended. The [facility] will attempt to schedule the recommended follow up with the patient. IMPRESSION: ACR BI-RADS CATEGORY 4: Susp icious. Madeleine Page FILES SUPERVISOR, PHYSICAL SCIENCE AIDE RAD ERIC (ABNORMAL) [facility] Mammogram Diag Bilat W 3D [place] (05/28/2019 2:16 PM DATABASE CONSULTANT) Anatomical Region Laterality Modality Breast Bilateral Mammography Specimen (Source) Anatomical Collection Method Collection Time Re ceived Time Location / / Volume Laterality 05/28/2019 2:15 PM DATABASE CONSULTANT Impressions 05/28/2019 3:44 PM DATABASE CONSULTANT HISTORY: Left breast mass 12:00 p.m., 2 [...] is indeterminate. Ultrasound-guided biopsy is recommended. The [facility] will attempt to schedule the [...] is indeterminate. Ultrasound-guided biopsy is recommended. The [facility] will attempt to schedule the recommended follow up with the patient. IMPRESSION: ACR BI-RADS CATEGORY 4: Susp icious. Madeleine Page FILES SUPERVISOR, PHYSICAL SCIENCE AIDE RAD ERIC documented in this encounter Visit Diagnoses Diagnosis Left breast mass Lump or mass in breast Left breast mass Lump or mass in breast documented in this encounter Care Teams Therapy Technician Relationship Specialty Start Date End Date Kristine Mendez MD PCP - General 01/01/14 [address] [address] [place] [address] documented as of this encounter
--- OUTSIDE RECORDS SUMMARY | 2022-01-24 10:57 | XMS_ITS | Encounter Summary ---
:1985 Author Organization [employer] Address [address] [place] [address] Care Team Providers Name Role Phone Kristine Mendez MD Primary Care Provider Reason for Referral Specialty Diagnoses / Procedures Referred By Contact [place]er [place] [address] [place] [address] Referral ID Status Reason Start Date Expiration Date Visits Requ ested Visits Authorized Reason for Visit Reason Comments CONSULT Encounter Details Date Type Department Care Team Description 01/02/2014 Initial Consult [facility] [address] istyrese (Primary Dx); Endocrinology JOHN Amato Thyroid mass; [address] [place] or infrequent menstruation; Blvd. Thyroid nodule [place], [place] [id number] Social History Tobacco Use Types Packs/Day Years [...] PM CDT Thank you for enrolling in [employer]. Please follow the instructions below to securely access your online medical record. [employer] allows you to send messages to your doctor, view your test results, renewyour prescriptions, schedule appointments, and more. How Do I Sign Up? 1. In your Internet browser, go to: [email or web address][email or web address] 2. Click on the Enter Activation Code link under the New User? section. You will see the New Member Sign Up page. 3. Enter your [employer] Activation Code exactly as it appears below. You will not need to use this code after you???ve completed the sign-up process. If you do not sign up before the expiration date, youmust request a new code. [employer] Activation Code: [email or web address] Expires: 02/01/2014 12:59 PM 4. Enter your Date of (mm/dd/yyyy), Home Phone Number and Zip Code as indicated, then click Next. You will be taken to the next sign-up page 5. Create a [employer] ID. This will be your [employer] login ID and cannot be changed, so think of one that is secure and easy to remember. 6. Create a [employer] password. You can change your password at any time. 7. Enter your Security Question and Answer. This can be used at a later time if you forget your password. Click Next. 8. Enter your e-mail address. You will receive e-mail notification when new information is availablein [employer]. 9. Click Sign In. You can now view your medical record. Additional Information If you have questions, you can call [phone] to talk to our [employer] staff. Remember, [employer] is NOT to be used for urgent [...] 01/19/14916 Note Time: 01/02/14 144 Status: Signed Staff Electronic Warfare Officer: Leann Magaña MD (Physician) NAME: YAMILET LORA MR#: [id number] CSN: [id number] AUTHENTICATING CLINICIAN: JOHN Eaton CONFIRM #: [id number] LOC: 432 CLINIC CONSULTATION DATE OF CONSULTATION: [...] Currently, she denies the intake of any elfo-jyb-fowhyrh thyroid or iodine products. She denies history [...] No other medical problems. PAST SURGICAL HISTORY: [place] tooth extraction. FAMILY HISTORY: Reviewed and updated in [facility]. SOCIAL HISTORY: Reviewed and updated in [facility]. MEDICATIONS: Reviewed and updated in [facility]. ALLERGIES: Reviewed and updated in [facility]. REVIEW OF SYSTEMS: All the 12 [...] on the lower abdomen. LABS: Reviewed in [facility]. Recent TSH was 1.31 on 01/01/2014. [...] I am not screening her for subclinical [place]'s. Total time 60 minutes. More than half of the time was counseling time regarding the thyroid nodule and also the diagnosis of PCOS. SP:MEDQ C: CONFIRM #: [id number] documented in this encounter Plan of Treatment Not on filedocumented as of this encounter Visit Diagnoses Diagnosis Hirsutism - Primary Thyroid mass (HRC) Unspecified disorder of thyroid [place] or infrequent menstruation Thyroid nodule (HRC) Nontoxic uninodular goiter documented in this encounter Care Teams Outpatient Dietitian Relationship Specialty Start Date End Date Kristine Mendez MD PCP - General 01/01/14 [address] [place] [address] documented as of this encounter
--- OUTSIDE RECORDS SUMMARY | 2022-01-24 10:57 | XMS_ITS | Encounter Summary ---
:1985 Author Organization [employer] Address [address] [place] [address] Care Team Providers Name Role Phone Kristine Mendez MD Primary Care Provider Encounter Details Date Type Department Care Team Description 04/12/2018 edith Osuna [phone] Social History Tobacco Use Types Packs/Day Years [...] ear symptoms. I sent your prescriptions to [facility] [address]. I???ve also listed a few self-care tips [...] Note: Refills: None fluticasone 50 mcg/actuation spray,suspension [place] 1-2 spray into both nostrils once a day as needed for 30 days Note: Refills: None Sent To: [facility] [id number] [employer]LECTR[employer] [place] [place], [place] [id number] Treatment Plan Self Care Tip Topics Ease [...] orders fluticasone (fluticasone) amoxicillin (amoxicillin) Allergies None [facility] Information [facility] by [employer] We are an online clinic open 20/11. If you have any questions or comments about this visit, please call or email [email or web address] documented in this encounter Plan of Treatment Not on filedocumented as of this encounter Visit Diagnoses Not on filedocumented in this encounter Care Teams Biologist Relationship Specialty Start Date End Date Kristine Mendez MD PCP - General 01/01/14 [address] [address] [place] [address] documented as of this encounter
--- OUTSIDE RECORDS SUMMARY | 2022-01-24 10:57 | XMS_ITS | Encounter Summary ---
:1985 Author Organization [facility] Address [address] [place] [address] Care Team Providers Name Role Phone Kristine Mendez MD Primary Care Provider Encounter Details Date Type Department Care Team Description 03/03/2014 Notes/Orders Amy Internal Apolonia Cm, Radha pa in in female Medicine MD (Primary Dx) [address] [place] [address] [place] [address] [phone] Social History Tobacco Use Types Packs/Day Years [...] organs documented in this encounter Care Teams Wire Winding Machine Operator Relationship Specialty Start Date End Date Kristine Mendez MD PCP - General 01/01/14 [address] [address] [place] [address] documented as of this encounter
--- OUTSIDE RECORDS SUMMARY | 2022-01-24 10:57 | XMS_ITS | Encounter Summary ---
:1985 Author Organization [facility] Address [address] [place] [address] Care Team Providers Name Role Phone Kristine Mendez MD Primary Care Provider Reason for Referral (Routine) - Closed Specialty Diagnoses / Procedures Referred By Contact Refer red To Contact Diagnoses Family history of colon cancer Gabriela Mcfarlane, DO Procedures Endoscopy, colon, diagnostic [address] [place] [address] Referral ID Status Reason Start Date Expiration Date Visits Requ ested Visits Authorized [id number] Closed 01/10/2019 04/10/2020 1 1 Reason for Visit (Routine) - Closed Specialty Diagnoses / Procedures Referred By Contact Refer red To Contact Diagnoses Family history of colon cancer Gabriela Mcfarlane, DO Procedures Endoscopy, colon, diagnostic [address] [address] [place] [address] Referral ID Status Reason Start Date Expiration Date Visits Requ ested Visits Authorized [id number] Closed 01/10/2019 04/10/2020 1 1 Encounter Details Date Type Department Care Team Description 02/10/2019 [facility] Jefferson Carrasco histor y of Encounter Gastroenterology MD Gabriel colon cancer Endoscopy Procedures [address] [address] [place] [address] [facility] [place] [address] Social History Tobacco Use Types Packs/Day Years [...] Colonoscopy in 3 years, follow up polyps 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 The [id number] was introduced through the anus and advanced [...] previously scheduled. Procedure Code(s): --- Professional --- 67168, Colonoscopy, flexible; with removal of tumor(s), polyp(s), or other lesion(s) by snare technique 73634, Colonoscopy, flexible; with directed submucosal injection(s), any substance G0500, Moderate sedation services provided by the same physician or other qualified health care information associate performing a gastrointestinal endoscopic service that sedation supports, requiring the presence of an independent trained observer to assist in the monitoring of the patient's level of consciousness and physiological status; initial 15 minutes of intra-service time; patient age 5 years or older (additional time may be reported with 34996, as appropriate) Diagnosis Code(s): --- Professional --- Z80.0, Family history of malignant neoplasm of digestive organs D12.0, Benign neoplasm of cecum CPT copyright 2018 [employer] [place] [employer]. All rights reserved. The codes documented in this report are preliminary and upon poke in review may be revised to meet current [...] turations were monitored ? continuou sly. The [id number] was ? introduce d through the anus [...] Code(s): ?? --- Professional - -- ? 00486, Co lonoscopy, flexible; with ? removal o f tumor(s), polyp(s), or ? other les ion(s) by snare technique ? 24591, Co lonoscopy, flexible; with ? directed submucosal injection(s), any ? substance ? G0500, Mo derate sedation services ? provided by the same physician or ? other [facility] health care ? professio nal [...] time may ? [place] [address], as ? appropria te) Diagnosis Code(s): ?? --- Professional - -- ? Z80.0, Fa sebastian history of malignant ? neoplasm of digestive organs ? D12.0, Be nign neoplasm of cecum CPT copyright 2018 [employer] [place] [employer]. All rights reserved. The codes documented in this report are preliminary and upon poke in review may be revised to meet current [...] and oxygen saturations were monitored continuously. The [id number] was introduced through the anus and advanced [...] previously scheduled. Procedure Code(s): --- Professional --- 20470, Colonoscopy, flexible; with removal of tumor(s), polyp(s), or other lesion(s) by snare technique 91833, Colonoscopy, flexible; with directed submucosal injection(s), any substance G0500, Moderate sedation services provided by the same physician or other qualified health care information associate performing a gastrointestinal endoscopic service that sedation supports, requiring the presence of an independent trained observer to assist in the monitoring of the patient's level of consciousness and physiological status; initial 15 minutes of intra-service time; patient age 5 years or older (additional time may be reported with 76228, as appropriate) Diagnosis Code(s): --- Professional --- Z80.0, Family history of malignant neoplasm of digestive organs D12.0, Benign neoplasm of cecum CPT copyright 2018 [employer] [place] [employer]. All rights reserved. The codes documented in this report are preliminary and upon poke in review may be revised to meet current compliance requirements. Jefferson Carrasco MD 02/10/2019 2:30:24 PM This document has been electronically si gned. Number of Addenda: 0 Note Initiated On: 02/10/2019 2:51 PM Endoscopy Report Gabriela Mcfarlane DO PN GI PROCEDURE ORDERABLES Performing Organization Address City/State/ZIP Code Phon e Number GI (PROVATION) GI (PROVATION) [place], [place] Surgical Path - GI (02/10/2019 2:24 PM CDT) Component Value Ref Test Analysis Performed At [facility] gist Range Method Time Signature Case Report Surgical Pathology ?Case: [id number] ? 02/13/2019 [facility] Authorizing Provider: ??Jefferson Vogt MD ? Collected: ? 02/10/2019 02:24 PM ? 9:35 AM LABORATOR Y Ordering Location: ? [facility] ? Received: ?02/10/2019 04:34 PM ? CDT ? Gastroenterology Endoscopy ? Procedures ? Pathologist: ? Jesse Villa MD ? Specimen: ?Colon, cecum, CECUM ? FINAL A. Colon, cecum, CECUM, polypectomy: [facility] Electronically DIAGNOSIS ?? Sessile serrated adenoma (s) 9:35 AM LABORATORY signed by CDT Gabriel Villa MD on 01/28 at 9:35 AM Gross A. The specimen is received in formalin and labeled with the patient's name and Colon, cecum, CECUM. The specimen consists of three landeros, flattened tissue fragments ranging from 0.3 cm to 1.5 cm in gre 02/13/2019 [facility] Description atest dimension. The largest fragment is bisected and the tissue is entirely submitted in one block. AW 9:35 AM LABOR ATORY CDT Clinical Polyp 02/13/2019 [facility] Information 9:35 AM LABORATORY CDT Microscopic Microscopic 02/13/2019 [facility] Description examination is 9:35 AM LABORATORY performed. CDT Embedded 02/13/2019 [facility] Images 9:35 AM LABORATORY CDT Specimen Anatomical Collection Method Collection Time Receive d Time (Source) Location / / Volume Laterality Tissue COLON STRUCTURE / 02/10/2019 2:24 PM 01/28 4:34 Unknown CDT PM CDT Jefferson Carrasco MD LAB PATHOLOGY Performing Organization Address City/State/ZIP Code Phon e Number [facility] [address] [place] [address] documented in this encounter Visit Diagnoses Diagnosis [...] 0203 documented in this encounter Care Teams Plant Cytologist Relationship Specialty Start Date End Date Kristine Mendez MD PCP - General 01/01/14 [address] [place] [place] [address] documented as of this encounter
--- OUTSIDE RECORDS SUMMARY | 2022-01-24 10:57 | XMS_ITS | Encounter Summary ---
:1985 Author Organization [facility] Address [address] [place] [address] Care Team Providers Name Role Phone Kristine Mendez MD Primary Care Provider Reason for Visit Procedure/Equipment (Routine) - Incomplete Specialty Diagnoses / Procedures Referred By Contact Refer red To Contact Diagnoses Left breast mass Madeleine Page, FACILITY SERVICE MANAGER, BRAKE DRUM LATHE OPERATOR Procedures YMM Mammogram Diag Bilat W 3D [place]urelia MM Mammogram Diag Bilat [address] [place] [address] Referral ID Status Reason Start Date Expiration Date Visits V isits Requested Authorized [id number] Incomplete 05/23/2019 08/21/2020 1 1 Encounter Details Date Type Department Care Team Description 05/28/2019 Ancillary Procedure [facility] [address] , Left breast mass Mammography FACILITY SERVICE MANAGER, BRAKE DRUM LATHE OPERATOR [address] [facility] [address] [place] [address] [phone] Social History Tobacco Use Types Packs/Day Years [...] an ultrasound-guided biopsy 06-03-2019. Sent message to [facility] documented in this encounter Plan of Treatment Not on filedocumented as of this encounter Procedures Procedure Name Priority Date/Time Associated Diagnosis Comme nts [facility] MAMMOGRAM DIAG Routine 05/28/2019 2:16 PM Left breast mass Results for this BILAT W 3D AURELIA SKIVER HEEL TAP procedure ar e in the results section. documented in this encounter Results (ABNORMAL) [facility] US Breast Lt (05/28/2019 3:07 PM SKIVER HEEL TAP) Anatomical Region Laterality Modality Breast Left Ultrasound Specimen (Source) Anatomical Collection Method Collection Time Re ceived Time Location / / Volume Laterality 05/28/2019 2:58 PM SKIVER HEEL TAP Impressions 05/28/2019 3:44 PM SKIVER HEEL TAP HISTORY: Left breast mass 12:00 p.m., 2 [...] is indeterminate. Ultrasound-guided biopsy is recommended. The [facility] will attempt to schedule [...] is indeterminate. Ultrasound-guided biopsy is recommended. The [facility] will attempt to schedule the recommended follow up with the patient. IMPRESSION: ACR BI-RADS CATEGORY 4: Susp icious. Madeleine Page FACILITY SERVICE MANAGER, BRAKE DRUM LATHE OPERATOR RAD ERIC (ABNORMAL) [facility] Mammogram Diag Bilat W 3D [place] (05/28/2019 2:16 PM SKIVER HEEL TAP) Anatomical Region Laterality Modality Breast Bilateral Mammography Specimen (Source) Anatomical Collection Method Collection Time Re ceived Time Location / / Volume Laterality 05/28/2019 2:15 PM SKIVER HEEL TAP Impressions 05/28/2019 3:44 PM SKIVER HEEL TAP HISTORY: Left breast mass 12:00 p.m., 2 [...] is indeterminate. Ultrasound-guided biopsy is recommended. The [facility] will attempt to schedule [...] is indeterminate. Ultrasound-guided biopsy is recommended. The [facility] will attempt to schedule the recommended follow up with the patient. IMPRESSION: ACR BI-RADS CATEGORY 4: Susp icious. Madeleine Page FACILITY SERVICE MANAGER, BRAKE DRUM LATHE OPERATOR RAD ERIC documented in this encounter Visit Diagnoses Diagnosis Left breast mass Lump or mass in breast Left breast mass Lump or mass in breast documented in this encounter Care Teams Solar Panel Technician Relationship Specialty Start Date End Date Kristine Mendez MD PCP - General 01/01/14 [address] [address] [place] [address] documented as of this encounter
--- OUTSIDE RECORDS SUMMARY | 2022-01-24 10:57 | XMS_ITS | Encounter Summary ---
:1985 Author Organization [facility] Address [address] [place] [address] Care Team Providers Name Role Phone Kristine Mendez MD Primary Care Provider Encounter Details Date Type Department Care Team Description 03/02/2014 Lab Visit [facility] Pelvic pain in female [address] [place] [id number] Social History Tobacco Use Types Packs/Day Years [...] Routine 03/02/2014 5:00 PM Results for this LICENSING DIRECTOR procedure are i n the results section. URINE MICROSCOPIC Routine 03/02/2014 4:34 PM Resu lts for this LICENSING DIRECTOR procedure are i n the results section. URINALYSIS ROUTINE, Routine 03/02/2014 4:34 PM Pelvic pain in Results for this MICRO/CULTURE IF POS LICENSING DIRECTOR female procedu re are in the results section. documented in this encounter Results Urine Culture (03/02/2014 5:00 PM LICENSING DIRECTOR) [facility] Method Time Signature Source Urine HP CONVERSION Site HP CONVERSION Urine Culture No growth HP CONVERSION Specimen (Source) Anatomical Collection Method Collection Time Re ceived Time Location / / Volume Laterality Urine: 03/02/2014 5:00 PM LICENSING DIRECTOR Apolonia Cm MD LAB_1 Performing Organization Address [facility] Phon e Number HP CONVERSION (ABNORMAL) URINE MICROSCOPIC (03/02/2014 4:34 PM LICENSING DIRECTOR) [facility] Method Time Signature Urine WBC 0-2 0 - 4 HP CONVERSION Urine RBC 5-9 (A) 0 - 2 HP CONVERSION Bacteria Urine Occasional (A) HP CONVERS ION Epithelial Few HP CONVERSION Cells Specimen (Source) Anatomical Collection Method Collection Time Re ceived Time Location / / Volume Laterality Urine: 03/02/2014 4:34 PM LICENSING DIRECTOR Narrative HP CONVERSION - 03/02/2014 4:59 PM LICENSING DIRECTOR Performed at [facility], [address] [place] [address] Apolonia mC MD LAB_1 Performing Organization Address [facility] Phon e Number HP CONVERSION (ABNORMAL) URINALYSIS ROUTINE, MICRO/CULTURE IF POS (03/02/2014 4:34 PM LICENSING DIRECTOR) [facility] Method Time Signature Urine Type [...] U Specific 1.020 1.005 - HP CONVERSION [place] 1.030 Urobilinogen Negative Negative HP CONVERSION Urine Specimen (Source) Anatomical Collection Method Collection Time Re ceived Time Location / / Volume Laterality Urine: 03/02/2014 4:34 PM LICENSING DIRECTOR Narrative HP CONVERSION - 03/02/2014 4:41 PM LICENSING DIRECTOR Performed at [facility], [address] [place] [address] Apolonia Cm MD LAB_1 Performing Organization Address [facility] Phon e Number HP CONVERSION documented in this encounter Visit Diagnoses Diagnosis Pelvic pain in female Unspecified symptom associated with fema le genital organs documented in this encounter Care Teams Sand Conditioner Machine Relationship Specialty Start Date End Date Kristine Mendez MD PCP - General 01/01/14 [address] [place] [address] documented as of this encounter
--- OUTSIDE RECORDS SUMMARY | 2022-01-24 10:57 | XMS_ITS | Encounter Summary ---
:1985 Author Organization [employer] Address [address] [place] [address] Care Team Providers Name Role Phone Unavailable Primary Care Provider Unavailable Reason for Visit Reason Comments INFECTION, URINARY TRACT Encounter Details Date Type Department Care Team Description 07/21/2012 Office Visit [facility] [place] [facility] Cystitis (Primary Dx) [address] [place], [place] [address] Social History Tobacco Use [...] encounter Patient Instructions Patient InstructionsNahomi Diane, ASAD, BIOMASS TECHNICIAN - 07/21/2012 12:38 PM CDT Cystitis You [...] Read and follow all instructions from the production sampler before using. In order to keep yourself [...] Component Value Ref Test Analysis Performed At [facility] Range Method Time Signature Specimen Urine [facility] Description Midstream Special Unspecified [facility] Request[facility] Culture > 100,000 [facility] col/ml Escherichia coli Report Status Final [facility] 07/23/2012 Organism > 100,000 [facility]/ml Escherichia coli Specimen Anatomical Collection [...] CNP LAB_1 Performing Organization Address City/State/ZIP Code [facility] e Number [facility] [phone] [address] documented in this encounter Visit Diagnoses Diagnosis Cystitis - Primary Cystitis, unspecified documented in this encounter
--- OUTSIDE RECORDS SUMMARY | 2022-01-24 10:57 | XMS_ITS | Encounter Summary ---
:1985 Author Organization [employer] Address [address] [place] [address] Care Team Providers Name Role Phone Unavailable Primary Care Provider Unavailable Reason for Visit Reason Comments Refill Encounter Details Date Type Department Care Team Description 07/31/2013 Refill Apolonia Martell MD Refill [address] [place] [address] [place] [address] [phone] (Wo rk) Social History Tobacco Use Types [...]
--- OUTSIDE RECORDS SUMMARY | 2022-01-24 10:57 | XMS_ITS | Encounter Summary ---
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 Smoking status: Never Smoker ??? Smokeless tobacco: Not on file ??? Alcohol Use: No Comment: rare ??? Drug Use: No ??? Sexual Activity: Partners: Male Control/ Protection: Other Topics Concern ??? Exercise Yes ??? Seat Belt Yes ??? Special Diet No ??? 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: BP 130/82 Pulse 76 Temp(Src) 36.8 [...] on 3 day from online clinic - [facility] EDICAL ENGINEERING TECHNICIAN Miscellaneous - 06/08/2016 2:42 PM CSTNotes Recorded by Kristine Mendez MD on 02/23/2014 at 3:24 PMPt on cipro BID to complete 7 day course for incomplete tx of sx on 3 day from [facility] EDICAL ENGINEERING TECHNICIAN documented in this encounter Plan of [...] Results Urine Culture (02/23/2014 2:51 PM CDT) [facility] Method Time Signature Source Urine HP CONVERSION Site HP CONVERSION Urine Culture No growth HP CONVERSION Specimen (Source) Anatomical Collection Method Collection Time Re ceived Time Location / / Volume Laterality Urine: 02/23/2014 2:51 PM CDT Kristine Mendez MD LAB_1 Performing Organization Address [facility] Code Phon e Number HP [...] - 02/23/2014 3:19 PM CDT Performed at [facility], [address] [place] [address] Transcriptions 06/08/2016 2:42 PM CSTNotes Recorded by Kristine Mendez MD on 02/23/2014 at 3:24 PMPt on cipro BID to complete 7 day course for incomplete tx of sx on 3 day from online clinic - await Kristine Mendez MD LAB_1 Performing Organization Address [facility] Phon e Number HP CONVERSION (ABNORMAL) URINALYSIS ROUTINE, MICRO/CULTURE IF POS (02/23/2014 2:51 PM CDT) [facility] Method Time Signature Urine Type Urine:clean HP [...] U Specific >=1.030 1.005 - HP CONVERSION [place] 1.030 Urobilinogen Negative Negative HP CONVERSION Urine Specimen (Source) Anatomical Collection Method Collection Time Re ceived Time Location / / Volume Laterality Urine: 02/23/2014 2:51 PM CDT Narrative HP CONVERSION - 02/23/2014 2:59 PM CDT Performed at [facility], [address] [facility] [place] [address] Transcriptions 06/08/2016 2:42 PM CSTNotes Recorded by [...] organs documented in this encounter Care Teams Local Driver Relationship Specialty Start Date End Date Kristine Mendez MD PCP - General 01/01/14 [address] [place] [address] documented as of this encounter
--- OUTSIDE RECORDS SUMMARY | 2022-01-24 10:57 | XMS_ITS | Encounter Summary ---
:1985 Author Organization [facility] Address [address] [place] [address] Care Team Providers Name Role Phone Kristine Mendez MD Primary Care Provider Reason for Referral Procedure/Equipment (Routine) - Incomplete Specialty Diagnoses / Procedures Referred By Contact Refer red To Contact Diagnoses Left breast mass Madeleine Page APRN, BEAD WIRE TAPER Procedures [place] [address] [place] [address] Referral ID Status Reason Start Date Expiration Date Visits V isits Requested Authorized [id number] Incomplete 05/23/2019 08/21/2020 1 1 SITION LEAD Procedure/Equipment (Routine) - Incomplete Specialty Diagnoses / Procedures Referred By Contact Refer red To Contact Diagnoses Left breast mass Madeleine Page APRN, BEAD WIRE TAPER Procedures YMM Mammogram Diag Bilat W 3D Brodie MM Mammogram Diag Bilat [address] [place] [address] Referral ID Status Reason Start Date Expiration Date Visits V isits Requested Authorized [id number] Incomplete 05/23/2019 08/21/2020 1 1 SITION LEAD Reason for Visit Reason Comments BREAST LUMP Left Encounter Details Date Type Department Care Team Description 05/23/2019 Office Visit [facility] Madeleine Page, Left breast mass (Primary Dx); Services-GLASS MOLD REPAIRER ASAD, NAWAF Irregular menses [address], [address] [facility] [address] [place] [phone] Social History Tobacco Use Types Packs/Day Years [...] Comments Blood Pressure 127/82 05/23/2019 10:30 AM TRANSITION LEAD Pulse 103 05/23/2019 10:30 AM TRANSITION LEAD Temperature 36.9 ??C (98.4 ??F) 05/23/2019 10:30 AM TRANSITION LEAD Respiratory Rate - - Oxygen Saturation - - Inhaled Oxygen Concentration - - Weight 63.5 kg (140 lb) 05/23/2019 10:30 AM TRANSITION LEAD Height - - Body Mass Index 20.09 [...] The pain is not severe and no vuvx-ffs-[id number] medications used. This is a new symptom. [...] ??? Irritable bowel syndrome ??? Thyroid nodule ([facility]) 02/23/2014 PSH: Past Surgical History: Procedure Laterality Date ??? WISDOM TEETH EXTRACTION Social Hx: Social History Socioeconomic History ??? Marital status: Single Spouse name: Not on file ??? Number of children: Not on file ??? Years of education: Not on file ??? Highest education level: Not on file Occupational History ??? 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 OBJECTIVE:Patient was offered a healthcare network consultant for visit and declined. BP 127/82 (BP [...] will be addressed at apt by the [facility] radiologist and team. Irregular menses. Advised patient to schedule an infertility consult. She has been trying for 1 yearto conceive with PCOS symptoms and AMA. Dictation disclaimer: Some notes are completed with voice-recognition dictation software. Typographical errors may result. Please contact me via [employer] staff message if you note any errors requiring clarification. SITION LEAD documented in this encounter Plan of Treatment Not on filedocumented as of this encounter Results (ABNORMAL) [facility] US Breast Lt (05/28/2019 3:07 PM TRANSITION LEAD) Anatomical Region Laterality Modality Breast Left Ultrasound Specimen (Source) Anatomical Collection Method Collection Time Re ceived Time Location / / Volume Laterality 05/28/2019 2:58 PM TRANSITION LEAD Impressions 05/28/2019 3:44 PM TRANSITION LEAD HISTORY: Left breast mass 12:00 p.m., 2 [...] is indeterminate. Ultrasound-guided biopsy is recommended. [facility] will attempt to schedule the [...] is indeterminate. Ultrasound-guided biopsy is recommended. The [facility] will attempt to schedule the recommended follow up with the patient. IMPRESSION: ACR BI-RADS CATEGORY 4: Susp icious. Madeleine Page STEEL WOOL MACHINE OPERATOR, BEAD WIRE TAPER RAD ERIC (ABNORMAL) YMM Mammogram Diag Bilat W 3D Brodie (05/28/2019 2:16 PM TRANSITION LEAD) Anatomical Region Laterality Modality Breast Bilateral Mammography Specimen (Source) Anatomical Collection Method Collection Time Re ceived Time Location / / Volume Laterality 05/28/2019 2:15 PM TRANSITION LEAD Impressions 05/28/2019 3:44 PM TRANSITION LEAD HISTORY: Left breast mass 12:00 p.m., 2 [...] is indeterminate. Ultrasound-guided biopsy is recommended. [facility] will attempt to schedule the [...] is indeterminate. Ultrasound-guided biopsy is recommended. [facility] will attempt to schedule the recommended follow up with the patient. IMPRESSION: ACR BI-RADS CATEGORY 4: Susp icious. Madeleine Page STEEL WOOL MACHINE OPERATOR, BEAD WIRE TAPER RAD ERIC documented in this encounter Visit Diagnoses Diagnosis Left breast mass - Primary Lump or mass in breast Irregular menses Irregular menstrual cycle Left breast mass Lump or mass in breast Left breast mass Lump or mass in breast documented in this encounter Care Teams Sas Clinical Programmer Relationship Specialty Start Date End Date Kristine Mendez MD PCP - General 01/01/14 [address] [place] [address] documented as of this encounter
--- OUTSIDE RECORDS SUMMARY | 2022-01-24 10:58 | XMS_ITS | Encounter Summary ---
:1985 Author Organization [employer] [facility] Address [address] [place] [address] Care Team Providers Name Role Phone Unavailable Primary Care Provider Unavailable Reason for Visit Reason Comments Nausea Abdominal Pain Encounter Details Date Type Department Care Team Description [facility]2012 [facility], UTI (urinary tract infection ) (Primary Dx); [address] PA-C Abdominal pain; [place] [address] [address] Nausea alone [phone] [place] [id number] Social History Tobacco Use Types Packs/Day Years Used Date Smoking Tobacco: Never Alcohol Use Standard Drinks/Week Comments No 0 (1 standard drink = 0.6 oz pure alcoho l) Sex Assigned at Date Recorded Not on file documented as of this encounter Last Filed Vital Signs Vital Sign Reading Time Taken Comments Blood Pressure 124/86 06/26/2012 10:55 AM CORE MANAGER Pulse 96 06/26/2012 10:55 AM CORE MANAGER Temperature 36.6 ??C (97.9 ??F) 06/26/2012 10:55 AM CORE MANAGER Respiratory Rate - - Oxygen Saturation - - Inhaled Oxygen Concentration - - Weight 55.8 kg (123 lb) 06/26/2012 10:55 AM CORE MANAGER Height - - Body Mass Index 18.03 [...] Rico Hester PA-C - 06/26/2012 12:06 PM CORE MANAGER 18-year-old female patient presents with four-day history [...]
--- OUTSIDE RECORDS SUMMARY | 2022-01-24 10:58 | XMS_ITS | Encounter Summary ---
:1985 Author Organization [facility] Address [address] [place] [address] Care Team Providers Name Role Phone Jeri García MD Primary Care Provider Encounter Details Date Type Department Care Team Description 07/09/2008 PN Conversion Only [place] [address] [address] [place] [address] Social History Tobacco Use Types Packs/Day Years Used Date Smoking Tobacco: Never Alcohol Use Standard Drinks/Week Comments No 0 (1 standard drink = 0.6 oz pure alcoho l) Sex Assigned at Date Recorded Not on file documented as of this encounter Plan of Treatment Not on filedocumented as of this encounter Visit Diagnoses Not on filedocumented in this encounter Care Teams Tonal Regulator Relationship Specialty Start Date End Date Jeri García MD PCP - General 08/02/10 09/06/11 [address] [place] [id number] documented as of this encounter
--- OUTSIDE RECORDS SUMMARY | 2022-01-24 10:58 | XMS_ITS | Encounter Summary ---
:1985 Author Organization [employer] Address [address] [place] [address] Care Team Providers Name Role Phone Unavailable Primary Care Provider Unavailable Reason for Visit Reason Comments LEG PAIN Encounter Details Date Type Department Care Team Description 09/22/2011 Telephone [facility] Chanel Herman PA-C LEG PAIN [address] [place] [address] [place] [address] [phone] (Wo rk) Social History Tobacco Use Types [...]
--- OUTSIDE RECORDS SUMMARY | 2022-01-24 10:58 | XMS_ITS | Encounter Summary ---
:1985 Author Organization [facility] Address [address] [place] [address] Care Team Providers Name Role Phone Unavailable Primary Care Provider Unavailable Encounter Details Date Type Department Care Team Description 10/02/2011 Notes/Orders [place] [facility] [place] [facility] [place] [address] Social History Tobacco Use Types Packs/Day Years [...]
--- OUTSIDE RECORDS SUMMARY | 2022-01-24 10:58 | XMS_ITS | Encounter Summary ---
:1985 Author Organization [facility] Address [address] [place] [address] Care Team Providers Name Role Phone eJri García MD Primary Care Provider Encounter Details Date Type Department Care Team Description 07/09/2008 PN Conversion Only [facility] N Lidia Aquino APRN, [address] [place] [address] [place] [address] (Wo rk) Social History Tobacco [...] on filedocumented in this encounter Care Teams Cell Technician Relationship Specialty Start Date End Date Jeri García MD PCP - General 08/02/10 09/06/11 [address] [id number] documented as of this encounter
--- OUTSIDE RECORDS SUMMARY | 2022-01-24 10:58 | XMS_ITS | Encounter Summary ---
:1985 Author [facility] Address [address] [place] [address] Care Team Providers Name Role Phone Unavailable Primary Care Provider Unavailable Encounter Details Date Type Department Care Team Description 06/26/2012 Lab Visit [facility] Abdominal pain [address] [place] [id number] Social History Tobacco Use Types Packs/Day Years [...] 06/26/2012 11:33 Result s for this AM FLUME RIDE OPERATOR procedure are i n the results section. URINALYSIS ROUTINE, Routine 06/26/2012 11:33 Abdominal pain Re sults for this MICRO/CULTURE IF POS AM FLUME RIDE OPERATOR procedu re are in the results section. SEXUALLY TRANSMITTED Routine 06/26/2012 11:33 Abdominal pain R esults for this DISEASE PROBE AM FLUME RIDE OPERATOR procedure are in the results section. URINE CULTURE Routine 06/26/2012 11:33 Results fo r this AM FLUME RIDE OPERATOR procedure are i n the results section. TEST Routine 06/26/2012 11:33 Abdominal pain Results for this (URINE) AM FLUME RIDE OPERATOR procedure are i n the results section. documented in this encounter Results Sexually Transmitted Disease Probe (06/26/2012 11:33 AM FLUME RIDE OPERATOR) Component Value Ref Test Analysis Performed At [facility] Range Method Time Signature Chlamydia Chlamydia HP CONVERSION Trach DNA trachomatis NEGATIVE by DNA amplification GC DNA Neisseria HP CONVERSION gonorrhea NEGATIVE by DNA amplification. Specimen (Source) Anatomical Collection Method Collection Time Re ceived Time Location / / Volume Laterality Urine for 06/26/2012 11:33 molecular AM FLUME RIDE OPERATOR testing: Rico Hester PA-C LAB_[address] [facility] Phon e Number HP CONVERSION Urine Culture (06/26/2012 11:33 AM FLUME RIDE OPERATOR) Patholo gist Method Time Signature Urine Culture Mixed gram HP CONVERSION positive & negative organisms. <10,000 cfu/mL Specimen (Source) Anatomical Collection Method Collection Time Re ceived Time Location / / Volume Laterality Urine: 06/26/2012 11:33 AM FLUME RIDE OPERATOR Rico Hester PA-C LAB_1 Performing Organization Address [facility] Code Phon e Number HP CONVERSION (ABNORMAL) URINE MICROSCOPIC (06/26/2012 11:33 AM FLUME RIDE OPERATOR) Patholo gist Method Time Signature Urine [...] / Volume Laterality 06/26/2012 11:33 06/26/2012 AM FLUME RIDE OPERATOR 11:33 AM FLUME RIDE OPERATOR Narrative HP CONVERSION - 06/26/2012 11:49 AM FLUME RIDE OPERATOR [place] [address] Rico Hester PA-C LAB_1 Performing Organization Address [facility] Phon e Number HP CONVERSION Test (Urine) (06/26/2012 11:33 AM FLUME RIDE OPERATOR) Analysis Performed At Patho logist Time Signature Urine Negative HP CONVERSION Test Specimen Anatomical Collection Method Collection Time Receive d Time (Source) Location / / Volume Laterality 06/26/2012 11:33 06/26/2012 AM FLUME RIDE OPERATOR 11:33 AM FLUME RIDE OPERATOR Narrative HP CONVERSION - 06/26/2012 11:42 AM FLUME RIDE OPERATOR Performed at [place] [id number] Rico J Kacie PA-C LAB_1 Performing Organization Address City/[facility]/ZIP Code Phon e Number HP CONVERSION (ABNORMAL) URINALYSIS ROUTINE, MICRO/CULTURE IF POS (06/26/2012 11:33 AM FLUME RIDE OPERATOR) [facility] Method Time Signature Urine Type [...] U Specific <=1.005 1.005 - HP CONVERSION [place] 1.030 Urobilinogen Negative Negative HP CONVERSION Urine Eu/dL Specimen Anatomical Collection Method Collection Time Receive d Time (Source) Location / / Volume Laterality Urine: 06/26/2012 11:33 06/26/2012 AM FLUME RIDE OPERATOR 11:33 AM FLUME RIDE OPERATOR Narrative HP CONVERSION - 06/26/2012 11:49 AM FLUME RIDE OPERATOR Performed at [facility] [address] [place] [address] Rico Hester PA-C LAB_1 Performing Organization Address City/[facility] Code Phon e Number HP CONVERSION documented in this encounter Visit Diagnoses Diagnosis Abdominal pain documented in this encounter
--- OUTSIDE RECORDS SUMMARY | 2022-01-24 10:58 | XMS_ITS | Encounter Summary ---
:1985 Author Organization [employer] Address [address] [place] [address] Care Team Providers Name Role Phone Unavailable Primary Care Provider Unavailable Reason for Visit Reason Comments LEG PAIN Encounter Details Date Type Department Care Team Description 10/09/2011 Office Visit [facility] Chanel Herman, Leg pain (Primary Dx) [address] [place] [address] [address] [facility] [phone] [place], [place] [address] (Wo rk) Social History Tobacco Use Types [...]
--- OUTSIDE RECORDS SUMMARY | 2022-01-24 10:58 | XMS_ITS | Encounter Summary ---
:1985 Author Organization [employer] Address [address] [place] [address] Care Team Providers Name Role Phone Jeri García MD Primary Care Provider Reason for Visit Reason Comments Other Encounter Details Date Type Department Care Team Description 07/10/2008 Telephone [facility] Jannet Kaiser, Other [address] [place] [address] Social History Tobacco Use Types Packs/Day Years Used Date Smoking Tobacco: Never Alcohol Use Standard Drinks/Week Comments No 0 (1 standard drink = 0.6 oz pure alcoho l) Sex Assigned at Date Recorded Not on file documented as of this encounter [facility], Message - 07/10/2008 8:02 AM CDT Phone Note filed by Inbox at 08/18/101941 Author: Inbox Service: (none) Author Type: (none) Filed: 08/18/101941 Note Time: 07/10/08801 Status: Signed Lead Recoverer: Inbox (Resource) Xray Chest * PA And Left Lateral (Standard)results are now available in LastWord. Created on 10Jul2008 8:02am by ROJELIO ADKINS Acknowledged by OLEG RAMIREZ on 10:15am On 14Jul2008 1:21pm JANNET AKISER wrote: Noted. Acknowledged by JANNET KAISER on 1:21pm [employer] documented in this encounter Plan of Treatment Not on filedocumented as of this encounter Visit Diagnoses Not on filedocumented in this encounter Care Teams Director News Relationship Specialty Start Date End Date Jeri García MD PCP - General 08/02/10 09/06/11 [address] [place] [address] documented as of this encounter
--- OUTSIDE RECORDS SUMMARY | 2022-01-24 10:58 | XMS_ITS | Encounter Summary ---
:1985 Author Organization [email or web address] Address [address] [place] [address] Care Team Providers Name Role Phone Unavailable Primary Care Provider Unavailable Reason for Visit Reason Comments Patient Calling Back Encounter Details Date Type Department Care Team Description 10/02/2011 Telephone [facility] Medicin e Chanel Herman, Patient Calling Back [address] [place], [place] [id number] [address] [facility] [phone] [place], [place] [address] (Wo rk) Social History [...] - 10/04/2011 8:47 AM CDT LM at [phone] that if pt is having sx of [...] can be used. Please call Yamilet at [phone] for advise and recommendation. Okay to leave [...] what you recommended. She uses [facility] on [address]. Please let her know on her cell phone at [phone].. Kiley Ndiaye - 10/02/2011 11:15 AM CDT t calling to speak to nurse about possible reaction ( pain in legs) to control medication. documented in this encounter Plan of Treatment Not on filedocumented as of this encounter Visit Diagnoses Not on filedocumented in this encounter
--- OUTSIDE RECORDS SUMMARY | 2022-01-24 10:58 | XMS_ITS | Encounter Summary ---
:1985 Author Organization [facility] Address [address] [place] [address] Care Team Providers Name Role Phone Unavailable Primary Care Provider Unavailable Reason for Visit Reason Comments Medication Questions Encounter Details Date Type Department Care Team Description 06/25/2012 Telephone [facility] Chanel Herman, Medication Questions [address] [place], [place] [phone] [address] [facility] [phone] [place], [place] [address] (Wo rk) Social History [...] for the pt with Dr. Cm's advice. MBLY LINE WORKER Apolonia Cm MD - 06/25/2012 8:34 PM [...] us know if she has any issues. MBLY LINE WORKER Luann Suarez RN - 06/25/2012 3:30 PM [...] side effects. Pharmacy correct. Please call Yamilet [facility]) [phone] () c vm y MBLY LINE WORKER Kiley Ndiaye - 06/25/2012 3:23 PM CST Pt calling to speak to nurse/ about changing control medication due to nausea from existingmedication. MBLY LINE WORKER documented in this encounter Plan of Treatment Not on filedocumented as of this encounter Visit Diagnoses Not on filedocumented in this encounter
--- OUTSIDE RECORDS SUMMARY | 2022-01-24 10:58 | XMS_ITS | Encounter Summary ---
:1985 Author Organization [facility] Address [address] [place] [address] Care Team Providers Name Role Phone Jeri García MD Primary Care Provider Encounter Details Date Type Department Care Team Description 07/09/2008 Office Visit [facility] Lidia Aquino APRN, [facility] GEOGRAPHY TEACHER [address] [facility] [address] [address] [place] [address] [phone] (Wo rk) Social History Tobacco Use Types [...] Body Mass Index 17.21 06/27/2008 2:15 PM FUNERAL PROFESSIONAL documented in this encounter Progress Notes Lidia Aquino APRN, GEOGRAPHY TEACHER - 07/09/2008 12:01 AM CDT Progress Notes signed by AGUILA Connell at 07/16/08 1419 Author: AGUILA Connell Service: (none) Author Type: (none) Filed: 08/20/10 1324 Note Time: 07/09/08 0001 Status: Signed Land Inspector: AGUILA Connell (Nurse Practitioner) NAME: YAMILET DAILY MR#: [id number] ACCT: [id number] VISIT: [id number] DICTATING CLINICIAN: AGUILA Connell CONFIRM #: [id number] LOC: 506 CLINIC PROGRESS NOTE DATE OF VISIT: 07/09/2008 SUBJECTIVE: : 1985. A 23-year-old in clinic today because she just has not been feeling well for about 3 weeks. She describes having quite a productive cough, a runny nose, headache every day. She has also been nauseated recently. She was recently out of the country in [place], got back about a month ago and [...] into the illness she went to a [facility] and was tested negative for strep, [...] is in agreement with the above plan. LAE:[id number] C: 07/10/08 07:13 CONFIRM #: [id number] documented in this encounter Plan of Treatment [...] 07/09/2008 3:24 PM CDT : ??Negative chest. 43566/nakia Dictating ARMANDO GOMEZ Radiologist Narrative 07/09/2008 3:24 PM CDT COMPARISON: ??None. CLINICAL HISTORY: ??23-year-old female w ith cough. Procedure Note Armando Heller MD - 07/06/2016Formattin g of this note might be different from the original. COMPARISON: None. CLINICAL HISTORY: 23-year-old female wit h cough. IMPRESSION : Negative chest. 55036/yee Dictating ARMANDO GOMEZ Radiologist Lidia Aquino EQUIPMENT APPLICATION SPECIALIST, GEOGRAPHY TEACHER RAD GD documented in this encounter Visit Diagnoses Not on filedocumented in this encounter Care Teams Technical Project Manager Relationship Specialty Start Date End Date Jeri García MD PCP - General 08/02/10 09/06/11 [address] [place] [address] documented as of this encounter
--- OUTSIDE RECORDS SUMMARY | 2022-01-24 10:58 | XMS_ITS | Encounter Summary ---
:1985 Author Organization [facility] Address [address] [place] [address] Care Team Providers Name Role Phone Jeri García MD Primary Care Provider Encounter Details Date Type Department Care Team Description 08/30/2010 PN Conversion Only [facility] Jeri Stack, [address] [place] [address] [address] [phone] [place] [id number] (Wo rk) Social History Tobacco Use Types Packs/Day Years Used Date Smoking Tobacco: Never Alcohol Use Standard Drinks/Week Comments No 0 (1 standard drink = 0.6 oz pure alcoho l) Sex Assigned at Date Recorded Not on file documented as of this encounter Plan of Treatment Not on filedocumented as of this encounter Visit Diagnoses Not on filedocumented in this encounter Care Teams Med Care Manager Relationship Specialty Start Date End Date Jeri García MD PCP - General 08/02/10 09/06/11 [place] [address] documented as of this encounter
--- OUTSIDE RECORDS SUMMARY | 2022-01-24 10:58 | XMS_ITS | Encounter Summary ---
:1985 Author Organization [facility] Address [address] [place] [address] Care Team Providers Name Role Phone Unavailable Primary Care Provider Unavailable Reason for Visit Reason Comments Refill Encounter Details Date Type Department Care Team Description 12/10/2011 Refill [place] [facility] Chanel Mix PA-C Refill [address] [facility] [place] [address] [place] [address] [phone] (Wo rk) Social History Tobacco Use Types [...]
--- OUTSIDE RECORDS SUMMARY | 2022-01-24 10:58 | XMS_ITS | Encounter Summary ---
:1985 Author Organization [employer] Address [address] [place] [address] Care Team Providers Name Role Phone Unavailable Primary Care Provider Unavailable Reason for Visit Reason Comments Annual Exam Encounter Details Date Type Department Care Team Description 09/15/2011 Office Visit [facility] GastChanel diana M, Well adult exam (Primary Dx) ; [address] PA-C Need for hepatitis B vaccination; [place] [address] [address] [place] [facility] Breast lump on left side at 1 o'clock position [phone] [place], [place] [address] (Wo rk) Social History Tobacco Use Types [...] this encounter Patient Instructions Patient InstructionsCorry Murillo, HOMICIDE SQUAD SERGEANT - 09/15/2011 1:34 PM CDT Thank you for enrolling in [facility]. Please follow the instructions below to securely access your online medical record. [facility] allows you to send messages to your doctor, view your test results, renewyour prescriptions, schedule appointments, and more. How Do I Sign Up? 1. In your Internet browser, go to: [email or web address] 2. Click on the Sign Up Now link in the Sign In box. You will see the New Member Sign Up page. 3. Enter your [facility] Access Code exactly as it appears below. You will not need to use this code after you???ve completed the sign-up process. If you do not sign up before the expiration date, you must request a new code. [facility] Access Code: [email or web address] Expires: 10/15/11 01:28 PM 4. Enter your Social Security Number (xxx-[id number]) and Date of (mm/dd/yyyy) as indicated and click Submit. You will be taken to the next sign- up page. 5. Create a [facility] ID. This will be your [facility] login ID and cannot be changed, so think of one that is secure and easy to remember. 6. Create a [facility] password. You can change your password at any time. 7. Enter your Password Reset Question and Answer. This can be used at a later time if you forget your password. 8. Enter your e-mail address. You will receive e-mail notification when new information is availablein [facility]. 9. Click Sign Up. You can now view your medical record. Additional Information If you have questions, you can call [phone] to talk to our [facility] staff. Remember, [facility] is NOT to be used for urgent needs. For medical emergencies, dial 911. Thank you for enrolling in [facility]. Please follow the instructions below to securely access your online medical record. [facility] allows you to send messages to your doctor, view your test results, renewyour prescriptions, schedule appointments, and more. How Do I Sign Up? 10. In your Internet browser, go to: [email or web address] 11. Click on the Sign Up Now link in the Sign In box. You will see the New Member Sign Up page. 12. Enter your [facility] Access Code exactly as it appears below. You will not need to use this code after you???ve completed the sign-up process. If you do not sign up before the expiration date, you must request a new code. [facility] Access Code: [email or web address] Expires: 10/15/11 01:28 PM 13. Enter your Social Security Number ([id number]) and Date of (mm/dd/yyyy) as indicated and click Submit. You will be taken to the next sign- up page. 14. Create a [facility] ID. This will be your [facility] login ID and cannot be changed, so think of one that is secure and easy to remember. 15. Create a [facility] password. You can change your password at any time. 16. Enter your Password Reset Question and Answer. This can be used at a later time if you forget your password. 17. Enter your e-mail address. You will receive e-mail notification when new information is available in [facility]. 18. Click Sign Up. You can now view your medical record. Additional Information If you have questions, you can call [phone] to talk to our [facility] staff. Remember, [facility] is NOT to be used for urgent [...] hormones. She has never had any pregnancies. 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 Smoking status: [...] adenopathy. Pelvic: Normal external genitalia and urethra. [place], moist vaginal and cervical mucosa, without lesions. [...]
--- OUTSIDE RECORDS SUMMARY | 2022-01-24 10:58 | XMS_ITS | Encounter Summary ---
:1985 Author Organization [employer] Address [address] [place] [address] Care Team Providers Name Role Phone Unavailable Primary Care Provider Unavailable Reason for Visit Reason Comments Abdominal Pain Encounter Details Date Type Department Care Team Description 07/01/2012 Hospital Encounter [facility] uLann Molina A bdominal pain, unspecified site; Care MD Bacterial vaginosis [address] [address] [phone] Social History Tobacco Use Types Packs/Day Years Used Date Smoking Tobacco: Never Alcohol Use Standard Drinks/Week Comments No 0 (1 standard drink = 0.6 oz pure alcoho l) Sex Assigned at Date Recorded Not on file documented as of this encounter Last Filed Vital Signs Vital Sign Reading Time Taken Comments Blood Pressure 110/74 07/01/2012 8:19 AM CHEMICAL ENGINEERING PROFESSOR Pulse 88 07/01/2012 8:19 AM CHEMICAL ENGINEERING PROFESSOR Temperature 36.3 ??C (97.3 ??F) 07/01/2012 8:19 AM CHEMICAL ENGINEERING PROFESSOR Respiratory Rate 16 07/01/2012 8:19 AM CHEMICAL ENGINEERING PROFESSOR Oxygen Saturation - - Inhaled Oxygen Concentration [...] 07/05/12 0755 Note Time: 07/01/121423 Status: Signed Polisher Sand: Luann Molina MD (Physician) NAME: YAMILET LORA MR#: [id number] CSN: [id number] AUTHENTICATING CLINICIAN: Luann Molina MD CONFIRM #: [id number] LOC: 520 URGENT CARE PROGRESS NOTE DATE [...] agreement the plan. DAVID:MEDQ C: CONFIRM #: [id number] ICAL ENGINEERING PROFESSOR Luann Molina MD - 07/01/2012 1:18 PM [...] RN Oral - 07/01/12 1119 - - ICAL ENGINEERING PROFESSOR documented in this encounter Plan of Treatment Not on filedocumented as of this encounter Procedures Procedure Name Priority Date/Time Associated Diagnosis Comme nts CT ABD PELVIS W IV Routine 07/01/2012 12:47 Abdominal pain, Re sults for this CONT PM CHEMICAL ENGINEERING PROFESSOR unspecified site procedure a re in the results section. WET PREP STAT 07/01/2012 11:02 Abdominal pain, Results for this AM CHEMICAL ENGINEERING PROFESSOR unspecified site procedure a re in the results section. US PELVIC COMPLETE W Routine 07/01/2012 10:42 Abdominal pain, Results for this EV AM CHEMICAL ENGINEERING PROFESSOR unspecified site procedure a re in the results section. COMPLETE BLOOD STAT 07/01/2012 9:16 AM Abdominal pain, Resu lts for this COUNT-W/DIFF CHEMICAL ENGINEERING PROFESSOR unspecified site procedure a re in the results section. DIFFERENTIAL STAT 07/01/2012 9:16 AM Results f or this CHEMICAL ENGINEERING PROFESSOR procedure are i n the results section. SEXUALLY TRANSMITTED STAT 07/01/2012 9:06 AM Abdominal pain , Results for this DISEASE PROBE CHEMICAL ENGINEERING PROFESSOR unspecified site procedure are in the results section. URINE MICROSCOPIC STAT 07/01/2012 9:05 AM Abdominal pain, R esults for this CHEMICAL ENGINEERING PROFESSOR unspecified site procedure a re in the results section. URINALYSIS STAT 07/01/2012 9:05 AM Abdominal pain, Result s for this ROUTINE(MICRO IF POS) CHEMICAL ENGINEERING PROFESSOR unspecified site pr ocedure are in the results section. TEST STAT 07/01/2012 9:05 AM Abdominal pain, Resu lts for this (URINE) CHEMICAL ENGINEERING PROFESSOR unspecified site procedure a re in the results section. documented in this encounter Results CT Abd Pelvis W IV Cont (07/01/2012 12:47 PM CHEMICAL ENGINEERING PROFESSOR) Anatomical Region Laterality Modality Abdomen, Pelvis Other Specimen (Source) Anatomical Location Collection Method / Collectio n Time Received Time / Laterality Volume Impressions 07/01/2012 1:03 PM CHEMICAL ENGINEERING PROFESSOR IMPRESSION: No evidence for appendicitis, diverticul itis, or bowel obstruction. ?? No specific abnormality to definitely ex plain the patient's symptomatology. Narrative 07/01/2012 1:03 PM CHEMICAL ENGINEERING PROFESSOR COMPARISON: ?? None. ?? TECHNIQUE: ??Abdomen and [...] CT (ABNORMAL) WET PREP (07/01/2012 11:02 AM CHEMICAL ENGINEERING PROFESSOR) [facility] gist Method Time Signature WETPR White [...] / Volume Laterality 07/01/2012 11:02 07/01/2012 AM CHEMICAL ENGINEERING PROFESSOR 11:08 AM CHEMICAL ENGINEERING PROFESSOR Narrative HP CONVERSION - 07/01/2012 11:08 AM CHEMICAL ENGINEERING PROFESSOR Performed at [facility], [address] [place] [address] Luann Molian MD LAB_1 Performing Organization Address City/State/ZIP Code Phon e Number HP CONVERSION US Pelvic Complete W EV (07/01/2012 10:42 AM CHEMICAL ENGINEERING PROFESSOR) Anatomical Region Laterality Modality Pelvis Other Specimen (Source) Anatomical Location Collection Method / Collectio n Time Received Time / Laterality Volume Impressions 07/01/2012 10:52 AM CHEMICAL ENGINEERING PROFESSOR IMPRESSION: Normal pelvic ultrasound. Narrative 07/01/2012 10:52 AM CHEMICAL ENGINEERING PROFESSOR COMPARISON: ?None. ? FINDINGS: Transabdominal and endovaginal [...] MD RAD US Differential (07/01/2012 9:16 AM CHEMICAL ENGINEERING PROFESSOR) athologist Signature Absolute 2.3 1.8 - 8.0 [...] Volume Laterality 07/01/2012 9:16 AM 3 9:16 CHEMICAL ENGINEERING PROFESSOR AM CHEMICAL ENGINEERING PROFESSOR Narrative HP CONVERSION - 07/01/2012 9:42 AM CHEMICAL ENGINEERING PROFESSOR Performed at [facility], [address] [place] [address] Luann Molina MD LAB_1 Performing Organization Address City/State/ZIP Code Phon e Number HP CONVERSION (ABNORMAL) Complete Blood Count W/Diff (07/01/2012 9:16 AM CHEMICAL ENGINEERING PROFESSOR) [facility] gist Method Time Signature White Blood [...] Volume Laterality 07/01/2012 9:16 AM 3 9:16 CHEMICAL ENGINEERING PROFESSOR AM CHEMICAL ENGINEERING PROFESSOR Narrative HP CONVERSION - 07/01/2012 9:42 AM CHEMICAL ENGINEERING PROFESSOR Performed at [facility], [address] [place] [address] Luann Molina MD LAB_1 Performing Organization Address [facility] Phon e Number HP CONVERSION Sexually Transmitted Disease Probe (07/01/2012 9:06 AM CHEMICAL ENGINEERING PROFESSOR) Component Value Ref Test Analysis Performed At [facility] gist Range Method Time Signature Chlamydia Chlamydia HP CONVERSION Trach DNA trachomatis NEGATIVE by DNA amplification GC DNA Neisseria HP CONVERSION gonorrhea NEGATIVE by DNA amplification. Specimen (Source) Anatomical Collection Method Collection Time Re ceived Time Location / / Volume Laterality Endocervical for 07/01/2012 9:06 molecular testing: AM CHEMICAL ENGINEERING PROFESSOR Luann Molina MD LAB_1 Performing Organization Address [facility] Phon e Number HP CONVERSION Test (Urine) (07/01/2012 9:05 AM CHEMICAL ENGINEERING PROFESSOR) Analysis Performed At Patho logist Time Signature Urine Negative HP CONVERSION Test Specimen Anatomical Collection Method Collection Time Receive d Time (Source) Location / / Volume Laterality 07/01/2012 9:05 AM 3 9:32 CHEMICAL ENGINEERING PROFESSOR AM CHEMICAL ENGINEERING PROFESSOR Narrative HP CONVERSION - 07/01/2012 9:38 AM CHEMICAL ENGINEERING PROFESSOR Performed at [facility], [address] [place] [address] Luann Molina MD LAB_1 Performing Organization Address [facility] Phon e Number HP CONVERSION (ABNORMAL) URINE MICROSCOPIC (07/01/2012 9:05 AM CHEMICAL ENGINEERING PROFESSOR) Patholo gist Method Time Signature Urine WBC [...] Volume Laterality 07/01/2012 9:05 AM 3 9:32 CHEMICAL ENGINEERING PROFESSOR AM CHEMICAL ENGINEERING PROFESSOR Narrative HP CONVERSION - 07/01/2012 9:44 AM CHEMICAL ENGINEERING PROFESSOR Performed at [facility], [address] [place] [address] Luann Molina MD LAB_1 Performing Organization Address [facility] Phon e Number HP CONVERSION (ABNORMAL) URINALYSIS ROUTINE(MICRO IF POS) (07/01/2012 9:05 AM CHEMICAL ENGINEERING PROFESSOR) [facility] Method Time Signature Urine Type Urine:clean HP [...] U Specific 1.020 1.005 - HP CONVERSION [place] 1.030 Urobilinogen Negative Negative HP CONVERSION Urine Eu/dL Specimen Anatomical Collection Method Collection Time Receive d Time (Source) Location / / Volume Laterality Urine: 07/01/2012 9:05 AM 3 9:32 CHEMICAL ENGINEERING PROFESSOR AM CHEMICAL ENGINEERING PROFESSOR Narrative HP CONVERSION - 07/01/2012 9:44 AM CHEMICAL ENGINEERING PROFESSOR Performed at [facility], [address] [place] [address] Luann Molina MD LAB_1 Performing Organization Address [facility] Phon e Number HP CONVERSION documented in [...] and tried one pill of new pack. ICAL ENGINEERING PROFESSOR documented in this encounter
--- OUTSIDE RECORDS SUMMARY | 2022-01-24 10:58 | XMS_ITS | Encounter Summary ---
:1985 Author Organization [facility] Address [address] [place] [address] Care Team Providers Name Role Phone Jeri García MD Primary Care Provider Encounter Details Date Type Department Care Team Description 01/14/[address] [facility] [address] Vanessa Mckay MD Clinic [address] [facility] [address] [place] [address] [place], [place] [id number] [phone] Social History Tobacco Use Types Packs/Day Years [...] 0000 Note Time: 01/14/09 0001 Status: Signed Industrial Welder: Vanessa Moseley RN (Registered Nurse) Travel Clinic Initial Visit Patient is seen in Travel Clinic individually for travel education and counseling. Barrier(s) to care: None. TRAVEL PLANS Patient states they are planning to travel to: [place], in [facility] and [place], [place] for 3 weeks from [facility] to [facility] in [place] and malaria areas, [facility], [facility] and rural areas, [place] in [facility] and south into [facility] Plans include travel to and/or lodging at: [...] Diphtheria/Tetanus, Hepatitis A, Hepatitis B, HIV, Influenza, [place] Encephalitis, Leishmaniasis, Malaria, Polio, Rabies--pre-exposure schedule, Rabies--post-exposure [...] on filedocumented in this encounter Care Teams Analyzer Sales Relationship Specialty Start Date End Date Jeri García MD PCP - General 08/02/10 09/06/11 [address] [place] [address] documented as of this encounter
--- OUTSIDE RECORDS SUMMARY | 2022-01-24 10:58 | XMS_ITS | Encounter Summary ---
:1985 Author Organization [facility] Address [address] [place] [address] Care Team Providers Name Role Phone Jeri García MD Primary Care Provider Encounter Details Date Type Department Care Team Description 07/09/2008 PN Conversion Only [place] N Lidia qAuino APRN, [address] [place] [address] [facility] [place], [place] [address] (Wo rk) Social History [...] Comment: Patient: YAMILET DAILY Culture, Stool ?Collected: ??[id number] ??[id number] Source: Stool ? Processed: ?2055 ? SENS Final Report ------ ?[id number] ??1101 No Salmonella, Shigella, Campylobacter o r E coli O157 isolated Culture screened for Aeromonas, Plesiomo hung and Vibrio with negative results. If Yersinia is suspected, please submit a second culture and request for this organism. Specimen (Source) Anatomical Collection Method Collection Time Re ceived Time Location / / Volume Laterality 07/09/2008 4:36 PM CDT Lidia Aquino APRNNAWAF LAB_1 Performing Organization Address City/[facility] Code Phon e Number HP CONVERSION Mononucleosis Screen (07/09/2008 2:50 PM CDT) iLumen Method Time Signature Infectious Negative Negative HP CONVERSION Mononucleosis Screen Specimen (Source) Anatomical Collection Method Collection Time Re ceived Time Location / / Volume Laterality 07/09/2008 2:50 PM CDT Lidia Aquino APRNNAWAF LAB_1 Performing Organization Address [facility] Code Phon e Number HP CONVERSION (ABNORMAL) Complete Blood Count-W/Diff (07/09/2008 2:50 PM CDT) iLumen Method Time Signature White Blood Cell 5.4 [...] - HP CONVERSION Hemoglobin Conc 36.5 gm/dL [place] RDW 12.3 11.0 - HP CONVERSION 15.0 [...] Aquino NAWAF KAMARA LAB_1 Performing Organization Address [facility] Phon e Number HP CONVERSION Creatinine / GFR (07/09/2008 2:50 PM CDT) athologist Signature Creatinine 0.9 0.4 - 1.3 HP CONVERSION Serum mg/dL Est GFR >60 >60 HP CONVERSION Am Comment: -Angolan and Ldv-Ufynkad-Nsjzlkk n reference range units: mL/min/1.73m2 Normal>60, moderate [...] Kenia KAMARA CNP LAB_1 Performing Organization Address [facility] Phon e Number HP CONVERSION Electrolytes [...] Kenia KAMARA CNP LAB_1 Performing Organization Address [facility] Phon e Number HP CONVERSION Parvovirus [...] of specific IgM antibodi es. Performed at [facility] [facility] [address] [place] [address]10 8 Specimen (Source) Anatomical Collection Method Collection Time Re ceived Time Location / / Volume Laterality 07/09/2008 2:50 PM CDT Lidia Aquino APRN, CNP LAB_1 Performing Organization Address [facility] Phon e Number HP CONVERSION Hepatitis B Surface Antibody (07/09/2008 2:50 PM CDT) Analysis Performed At Patho logist Time Signature Hep B Surf Ab Non Reac Non Reac HP CONVERSION Specimen (Source) Anatomical Collection Method Collection Time Re ceived Time Location / / Volume Laterality 07/09/2008 2:50 PM CDT Lidia Aquino APRN, CNP LAB_1 Performing Organization Address [facility] Phon e Number HP CONVERSION Hep B Surface Antigen, No Reflex (07/09/2008 2:50 PM CDT) Analysis Performed At [facility] Time [facility] Hep B Surf Ag Negative Negative HP CONVERSION Specimen (Source) Anatomical Collection Method Collection Time Re ceived Time Location / / Volume Laterality 07/09/2008 2:50 PM CDT Lidia Kenia KAMARA CNP LAB_1 Performing Organization Address [facility] Phon e Number HP CONVERSION Urine Culture (07/09/2008 2:32 PM CDT) Analysis Performed At [facility] Time [facility] Urine Culture SEE TEXT HP CONVERSION Comment: Patient: YAMILET DAILY Culture, Urine ?Collected: ??[id number] ??[id number] Source: Clean Ca ?Processed: ??[id number] ??1432 ? 1V Final Report ------ ?[id number] ??0954 <10,000 CFU/mL gram negative andrez No further workup Specimen (Source) Anatomical Collection Method Collection Time Re ceived Time Location / / Volume Laterality 07/09/2008 2:32 PM CDT Lidia Kenia KAMARA CNP LAB_1 Performing Organization Address [facility] Phon e Number HP CONVERSION (ABNORMAL) Urinalysis Routine(Micro If Pos) (07/09/2008 2:32 PM CDT) [facility] Method Time Signature Turbidity Clear No [...] Specific 1.015 1.005 - 25 HP CONVERSION [place] Specimen (Source) Anatomical Collection Method Collection Time Re ceived Time Location / / Volume Laterality 07/09/2008 2:32 PM CDT Lidia Aquino APRN, CNP LAB_1 Performing Organization Address City/[facility]/ZIP Code Phon e Number HP CONVERSION (ABNORMAL) Urinalysis Microscopic (07/09/2008 2:32 PM CDT) [facility] Method Time Signature White Blood 0-2/HPF [...] on filedocumented in this encounter Care Teams International Trade Compliance Manager Relationship Specialty Start Date End Date Jeri García MD PCP - General 08/02/10 09/06/11 [address] [place], [place] [address] documented as of this encounter
--- OUTSIDE RECORDS SUMMARY | 2022-01-24 10:59 | XMS_ITS | Encounter Summary ---
:1985 Author Organization [facility] Address [address] [place] [address] Care Team Providers Name Role Phone Jeri García MD Primary Care Provider Encounter Details Date Type Department Care Team Description 05/10/2005 PN Conversion Only [place] Mariano Lennon PA-C [address] [place] [address] [place] [address] (Wo rk) Social History Tobacco Use Types Packs/Day Years Used Date Smoking Tobacco: Never Assessed Sex Assigned at Date Recorded Not on file documented as of this encounter Plan of Treatment Not on filedocumented as of this encounter Procedures Procedure Name Priority Date/Time Associated Diagnosis Comme nts POTASSIUM Routine 05/10/2005 3:25 PM Results f or this RAP ARTIST procedure are i n the results section . documented in this encounter Results Potassium (05/10/2005 3:25 PM RAP ARTIST) P athologist Signature Potassium 4.0 3.5 - 5.2 HP CONVERSION meq/L Specimen (Source) Anatomical Collection Method Collection Time Re ceived Time Location / / Volume Laterality 05/10/2005 3:25 PM RAP ARTIST Mariano Braun PA-C LAB_1 Performing Organization Address City/State/ZIP Code Phon e Number HP CONVERSION documented in this encounter Visit Diagnoses Not on filedocumented in this encounter Care Teams Charter Bus Driver Relationship Specialty Start Date End Date Jeri García MD PCP - General 08/02/10 09/06/11 [address] [place] [address] documented as of this encounter
--- OUTSIDE RECORDS SUMMARY | 2022-01-24 10:59 | XMS_ITS | Encounter Summary ---
:1985 Author Organization [facility] Address [address] [place] [address] Care Team Providers Name Role Phone Jeri García MD Primary Care Provider Encounter Details Date Type Department Care Team Description 08/26/2003 PN Conversion Only [place] D[facility] Mikala Del Valle, [address] [facility] [place] [address] [phone] [place], [place] [address] (Wo rk) Social History Tobacco Use Types Packs/Day Years Used Date Smoking Tobacco: Never Assessed Sex Assigned at Date Recorded Not on file documented as of this encounter Progress Notes Mikala Del Valle PA-C - 08/26/2003 12:01 AM CDT Progress Notes signed by Mikala Del Valle PA-C at 01/25/04 1637 Author: Mikala Kumari PA-C Service: (none) Author Type: Physician Consumer Loan Manager Filed: 08/18/10 8192 Note Time: 08/26/03 0001 Status: Signed Desktop Technician: Mikala Kumari PA-C (Physician Consumer Loan Manager) NAME: YAMILET DAILY MR: [id number] ACCT: [id number] VISIT: [id number] DICTATING CLINICIAN: ROCIO DRIVER JOB: [id number] CLINIC PROGRESS NOTE DATE OF VISIT: 08/26/2003 [...] chest or back. She has tried various rpwz-ujm-wbrsepw products. Does seem to get irritated with [...] involvement of her chest, back or shoulders. [id number] C: 08/26/03 19:06 DOCUMENT: [id number] documented in this encounter Plan of Treatment Not on filedocumented as of this encounter Visit Diagnoses Not on filedocumented in this encounter Care Teams Bean Sprout Grower Relationship Specialty Start Date End Date Jeri García MD PCP - General 08/02/10 09/06/11 [address] [place], [place] [id number] documented as of this encounter
--- OUTSIDE RECORDS SUMMARY | 2022-01-24 10:59 | XMS_ITS | Encounter Summary ---
:1985 Author Organization [facility] Address [address] [place] [address] Care Team Providers Name Role Phone Megan García MD Primary Care Provider Encounter Details Date Type Department Care Team Description 07/28/2004 Office Visit Megan Malcolm MD [facility] [address] [facility] [place] [address] [place] [address] [phone] (Wo rk) Social History Tobacco Use Types Packs/Day Years Used Date Smoking Tobacco: Never Assessed Sex Assigned at Date Recorded Not on file documented as of this encounter Last Filed Vital Signs Vital Sign Reading Time Taken Comments Blood Pressure 132/86 07/28/2004 2:17 PM SEALER SANDER Pulse 80 07/28/2004 2:17 PM SEALER SANDER Temperature - - Respiratory Rate - - Oxygen Saturation - - Inhaled Oxygen Concentration - - Weight 54.4 kg (119 lb 15.9 oz) 07/28/2004 2:17 PM SEALER SANDER C: 54.4kg Height - - Body Mass Index - - documented in this encounter Progress Notes Megan García MD - 07/28/2004 12:01 AM CST Progress Notes signed by Megan García MD at 08/01/04 0742 Author: Megan García MD Service: (none) Author Type: Physician Filed: 08/19/10 0510 Note Time: 07/28/04 0001 Status: Signed Granular Operator: Megan García MD (Physician) NAME: YAMILET DAILY MR: [id number] ACCT: [id number] VISIT: [id number] DICTATING CLINICIAN: MEGAN GARCÍA MD JOB: [id number] CLINIC PROGRESS NOTE DATE OF VISIT: 07/28/2004 [...] return here in two to three months. [id number] C: 07/29/04 07:48 DOCUMENT: [id number] documented in this encounter Plan of Treatment Not on filedocumented as of this encounter Visit Diagnoses Not on filedocumented in this encounter Care Teams Salesperson Women'S Hats Relationship Specialty Start Date End Date Megan García MD PCP - General 08/02/10 09/06/11 [address] [place] [address] documented as of this encounter
--- OUTSIDE RECORDS SUMMARY | 2022-01-24 10:59 | XMS_ITS | Encounter Summary ---
:1985 Author Organization [facility] Address [address] [place] [address] Care Team Providers Name Role Phone Jeri García MD Primary Care Provider Encounter Details Date Type Department Care Team Description 12/11/2002 PN Conversion Only [place] CONVERSION Radha Landin, FISH ROE PROCESSOR, [address] [place] [address] [address] [address] (Wo rk) Social History Tobacco Use [...] Patient: YAMILET DAILY Culture, Urine @ ?Collected: ??[id number] ??[id number] Source: Clean Ca ?Processed: ??[id number] ??1356 ? DO SENSI Final Report ------ ?[id number] ??1022 No growth @ = URINE CULTURE Performed at ??[address] [place], [place] ?[address] Specimen (Source) Anatomical Collection Method Collection Time Re ceived Time Location / / Volume Laterality 12/11/2002 1:56 PM CDT Radha Landin FISH ROE PROCESSOR, GEODESIST LAB_1 Performing Organization Address City/State/ZIP Code Phon e Number HP CONVERSION documented in this encounter Visit Diagnoses Not on filedocumented in this encounter Care Teams Enroller Relationship Specialty Start Date End Date Jeri García MD PCP - General 08/02/10 09/06/11 [address] [place] [address] documented as of this encounter
--- OUTSIDE RECORDS SUMMARY | 2022-01-24 10:59 | XMS_ITS | Encounter Summary ---
:1985 Author Organization [facility] Address [address] [place] [address] Care Team Providers Name Role Phone Jeri García MD Primary Care Provider Reason for Visit Reason Comments Other Encounter Details Date Type Department Care Team Description 04/26/2005 Telephone [facility] [address] [facility], Message Other [address] [place], [place] [id number] Social History Tobacco Use Types Packs/Day Years Used Date Smoking Tobacco: Never Assessed Sex Assigned at Date Recorded Not on file documented as of this encounter Progress Notes Conversion, [facility] - 04/26/2005 11:49 AM CST Phone Note filed by [facility] Conversion at 08/15/102329 Author: [facility] Conversion Service: (none) Author Type: (none) Filed: 08/15/102329 Note Time: 04/26/05 1149 Status: Signed Electroencephalograph Technician: Imr Conversion Benzaclin not covered per pt..can you try a P.A? Has HP..uses [facility] in [phone] Created on 26Apr2005 11:49am by ABAD CHRISTINA On 26Apr2005 12:54pm GERARDO COLLIER wrote: Deep available? Acknowledged by GERARDO COLLIER on 12:54pm On 26Apr2005 3:01pm JACKELYN FERMIN wrote: going to send prior auth for Benzaclin. Acknowledged by JACKELYN FERMIN on 3:01pm Acknowledged by ABAD CHRISTINA on 3:39pm On 24Aug2005 9:12am PRABHJOT VARGAS wrote: Prior auth for Benzaclin was denied. ILIZER LOADER documented in this encounter Plan of Treatment Not on filedocumented as of this encounter Visit Diagnoses Not on filedocumented in this encounter Care Teams Menu Planner Relationship Specialty Start Date End Date Jeri García MD PCP - General 08/02/10 09/06/[address] [place] [address] documented as of this encounter
--- OUTSIDE RECORDS SUMMARY | 2022-01-24 10:59 | XMS_ITS | Encounter Summary ---
:1985 Author Organization [facility] Address [address] [place] [address] Care Team Providers Name Role Phone Megan García MD Primary Care Provider Reason for Visit Reason Comments Other Encounter Details Date Type Department Care Team Description 06/08/2004 Telephone [employer], Message Other [address] [place] [address] Social History Tobacco Use Types Packs/Day Years Used Date Smoking Tobacco: Never Assessed Sex Assigned at Date Recorded Not on file documented as of this encounter Progress Notes Khushi Gibson - 06/08/2004 11:47 AM CST Phone Note filed by Khushi Gibson RN at 08/15/10 5227 Author: Khushi Gibson RN Service: (none) Author Type: (none) Filed: 08/15/10 0085 Note Time: 06/08/04 1147 Status: Signed Device Test Engineer: Khushi Gibson RN (Registered Nurse) Pt [...] try something else. Pharmacy is [facility] [phone]. She gets one month at a time. Pt is at [phone] and you can LM. Created on 08Jun2004 [...] on filedocumented in this encounter Care Teams Stemming Machine Operator Relationship Specialty Start Date End Date Megan García MD PCP - General 08/02/10 09/06/[address] [place] [address] documented as of this encounter
--- OUTSIDE RECORDS SUMMARY | 2022-01-24 10:59 | XMS_ITS | Encounter Summary ---
:1985 Author Organization [facility] Address [address] [place] [address] Care Team Providers Name Role Phone Megan García MD Primary Care Provider Encounter Details Date Type Department Care Team Description 05/23/2004 Office Visit Megan Malcolm MD [address] [place] [address] [place] [address] [phone] (Wo rk) Social History Tobacco Use Types [...] 0350 Note Time: 05/23/04 0001 Status: Signed Jigmaker: Megan García MD (Physician) NAME: YAMILET DAILY MR: [id number] ACCT: [id number] VISIT: [id number] DICTATING CLINICIAN: MEGAN GARCÍA MD JOB: [id number] CLINIC PROGRESS NOTE DATE OF VISIT: 05/23/2004 SUBJECTIVE: : 1985. REASON FOR VISIT: Acne. Hebrmf-fvg-tafm-old here concerned about a number of things [...] it there. 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 and working at a local [employer]. CURRENT MEDICATIONS: Azelex. ADR/ALLERGIES: SHE HAS NO [...] she becomes sexually active. PLAN: See assessment. [id number] C: 05/23/04 15:05 DOCUMENT: [id number] ERTY DEVELOPER documented in this encounter Plan of Treatment Not on filedocumented as of this encounter Visit Diagnoses Not on filedocumented in this encounter Care Teams Silver Holloware Assembler Relationship Specialty Start Date End Date Megan García MD PCP - General 08/02/10 09/06/11 [address] [place] [address] documented as of this encounter
--- OUTSIDE RECORDS SUMMARY | 2022-01-24 10:59 | XMS_ITS | Encounter Summary ---
:1985 Author Organization [facility] Address [address] [place] [address] Care Team Providers Name Role Phone Jeri García MD Primary Care Provider Encounter Details Date Type Department Care Team Description 12/26/2005 PN Conversion Only [place] [address] [place] [address] Social History Tobacco Use Types Packs/Day Years Used Date Smoking Tobacco: Never Assessed Sex Assigned at Date Recorded Not on file documented as of this encounter Plan of Treatment Not on filedocumented as of this encounter Visit Diagnoses Not on filedocumented in this encounter Care Teams Hinging Machine Operator Relationship Specialty Start Date End Date Jeri García MD PCP - General 08/02/10 09/06/11 [address] [place] [id number] documented as of this encounter
--- OUTSIDE RECORDS SUMMARY | 2022-01-24 10:59 | XMS_ITS | Encounter Summary ---
:1985 Author Organization [facility] Address [address] [place] [address] Care Team Providers Name Role Phone Jeri García MD Primary Care Provider Encounter Details Date Type Department Care Team Description 01/08/2003 PN Conversion Only [facility] Jeri Stack, [address] [place] [address] [address] [phone] [place] [address] (Wo rk) Social History Tobacco Use Types Packs/Day Years Used Date Smoking Tobacco: Never Assessed Sex Assigned at Date Recorded Not on file documented as of this encounter Progress Notes Jeri García MD - 01/08/2003 12:01 AM CDT Progress Notes signed by Jeri García MD at 01/12/03 2139 Author: Jeri García MD Service: (none) Author Type: Physician Filed: 08/18/10 7262 Note Time: 01/08/03 0001 Status: Signed Manager Payer: Jeri García MD (Physician) NAME: YAMILET DAILY MR: [id number] ACCT: [id number] VISIT: [id number] DICTATING CLINICIAN: JERI GARCÍA MD JOB: [id number] CLINIC PROGRESS NOTE DATE OF VISIT: 01/08/2003 SUBJECTIVE: Reason for visit: Abdominal pain. Lejlmtzc-tddi-bta here one month ago with one weeks [...] mucus. In two weeks she heads to [facility]. ??There is?? a concern about the [...] seven days until she is leaving for [facility] and we hate to miss something else brewing. An abdominal and pelvic CT is also scheduled. It is okay per the patient that her mom call and get these results. TT: CT: [id number] C: 01/08/03 23:02 DOCUMENT: [id number] Phone Note, Clinician - 01/02/2003 12:01 AM CDT Phone Note signed by AGUILA Zeng at 02/13/04 1635 Author: Clinician Phone Note Service: (none) Author Type: Resource Filed: 01/08/03 0000 Note Time: 01/02/03 0001 Status: Signed Manager Payer: Clinician Phone Note (Resource) TO: XAVIER DIOR FROM: RHONDA MCGINNIS RN [phone] * PROVIDER MESSAGE: ROUTINE * 01/02/03 10:51AM * *WITHIN 4 HOURS * MESSAGE: Mom calling say her daughter * HOME PHONE:[phone] * is going to [facility] in a few * CONTACT PHONE:[phone] * weeks for 3 months time. She needs * Pt or Mom Leqeen * malaria pills. * PHARMACY: [phone] * SUBJECTIVE: * yumiko reyes * ALLERGIES/SENSITIVITIES... nkda CURRENT MEDICATIONS... none per Mom PERTINENT PAST HISTORY... WEIGHT: PATIENT IS NOT . PATIENT IS NOT NURSING. ASSESSMENT: rx for malaria pills PLAN: DISPOSITION: NO DISPOSITION GIVEN CALL BY RHONDA MCGINNIS RN 01/02/2003 10:48AM [phone] ADDENDUM: <> 01/02/2003 01:51PM by NADEEN BASS: Per Radha Gomez RN HIGHWAY TRAFFIC CONTROL TECHNICIAN, Lariam 250mg as directed. #19 with no refill called to [facility] at [phone]. Recommend calling the Travel clinic to check on immunizations needed or visit www.cdc.gov. Mother notified. GER OPERATIONAL Phone Note, Clinician - 12/15/2002 12:01 AM CDT Phone Note filed by Clinician Phone Note at 08/16/10 9566 Author: Clinician Phone Note Service: (none) Author Type: Resource Filed: 08/16/10 1155 Note Time: 12/15/02 0001 Status: Signed Manager Payer: Clinician Phone Note (Resource) TO: XAVIER DIOR FROM: JAY MEDINA [phone] * PROVIDER MESSAGE: ROUTINE * 12/15/02 08:55AM * *WITHIN 4 HOURS * MESSAGE: Patient's mom calling in * HOME PHONE:[phone] * today to see if the UA results from * CONTACT PHONE:[phone] * her appointment on 12/11/02 with * [...] GIVEN CALL BY JAY MEDINA 12/15/2002 08:52AM [phone] ADDENDUM: <> 12/15/2002 01:20PM by RADHA ROSEN: [...] BRAVO LPN: Notified of normal culture results. GER OPERATIONAL Xavier Braun PA-C - 12/11/2002 12:01 AM CDT Progress Notes signed by Xavier Braun PA-C at 12/23/02 1421 Author: Xavier Braun PA-C Service: (none) Author Type: Physician Winding Inspector Filed: 08/18/10 1627 Note Time: 12/11/02 0001 Status: Signed Manager Payer: Xavier Braun PA-C (Physician Winding Inspector) NAME: YAMILET DAILY MR: [id number] ACCT: [id number] VISIT: [id number] DICTATING CLINICIAN: ROCIO COSME JOB: [id number] CLINIC PROGRESS NOTE DATE OF VISIT: 12/11/2002 [...] 1. UTI. 2. Heart palpitation. TT: CT: [id number] C: 12/11/02 15:18 DOCUMENT: [id number] Radha Ogden - 09/10/2002 12:01 AM CDT Progress Notes signed by AGUILA Zeng at 01/22/04 9122 Author: AGUILA Zeng Service: (none) Author Type: Nurse Practitioner Filed: 08/18/10 6530 Note Time: 09/10/02 0001 Status: Signed Manager Payer: AGUILA Zeng (Nurse Practitioner) NAME: YAMILET DAILY MR: [id number] ACCT: [id number] VISIT: [id number] DICTATING CLINICIAN: RADHA GOMEZ NP JOB: [id number] CLINIC PROGRESS NOTE DATE OF VISIT: 09/10/2002 [...] area and back of the head. Using anoa-eni-zatuarf Tylenol Sinus yesterday and aspirin for one dose with some good relief of the headache, but not really as much for the pressure. She does have a previous history of sinus infections. No history of allergies. Nonsmoker. MEDICATIONS: None. ADR/ALLERGIES: NKDA. NO LATEX ALLERGY. She is a student at [employer]. One sister sick at home with similar [...] with sinusitis, suspect viral etiology. TT: CT: [id number]:[id number] C: 09/11/02 16:08 DOCUMENT: [id number] GER OPERATIONAL Xavier Braun PA-C - 07/09/2002 12:01 AM CST Progress Notes signed by Xavier Braun PA-C at 07/16/02 1126 Author: Xavier Braun PA-C Service: (none) Author Type: Physician Winding Inspector Filed: 08/18/10 1357 Note Time: 07/09/022053 Status: Signed Manager Payer: Xavier Braun PA-C (Physician Winding Inspector) NAME: YAMILET DAILY MR: [id number] ACCT: [id number] VISIT: [id number] DICTATING CLINICIAN: ROCIO COSME JOB: [id number] CLINIC PROGRESS NOTE DATE OF VISIT: 07/09/2002 SUBJECTIVE: : 1985. Chart Number: [id number]. This 17-year-old presents today with one week [...] to flight as she is leaving for [place] tomorrow. Lots of fluids, warm compresses to the sinus areas, steamy baths and showers to help with drainage. Return to clinic as needed for continued or worsening symptoms. FINAL IMPRESSION: Acute sinusitis. TT: CT: [id number]:[id number] C: 07/10/02 20:33 DOCUMENT: [id number] Nghia Salas - 09/20/2001 12:01 AM CDT Progress Notes signed by at 06/21/02 0001 Author: Nghia Stringer MD Service: (none) Author Type: Physician Filed: 08/18/10 0713 Note Time: 09/20/012053 Status: Signed Manager Payer: Nghia Stringer MD (Physician) IMPRESSION: Acute sinusitis. [...] time if symptoms not resolved. TT: CT: KOURTNEY:[id number] C: DOCUMENT: [id number] GER OPERATIONAL Conversion, [facility] - 06/17/2001 12:01 AM CST Progress Notes signed by at 06/21/022053 Author: Imr Conversion Service: (none) Author Type: (none) Filed: 08/18/10 0457 Note Time: 06/17/012053 Status: Signed Manager Payer: Shelley Conversion IMPRESSION: Postviral cough versus bronchitis. [...] to take. Follow up p.r.n. TT: CT: TIFFANIET:[id number] C: DOCUMENT: [id number] SCHEDULED RESOURCE: ALEKS BREEN / ROCIO GER OPERATIONAL Conversion, [facility] - 11/06/2000 12:01 AM CDT Phone Note signed by at 11/06/00 2794 Author: [facility] Conversion Service: (none) Author Type: (none) Filed: 08/18/10 0007 Note Time: 11/06/002053 Status: Signed Manager Payer: Shelley Conversion IMPRESSION: Need order for shot TO: MARY MENDOZA FROM: JC YEPEZ RN [phone] * PROVIDER MESSAGE: RETURN * 11/06/00 12:48PM * CALL REQUESTED * MESSAGE: Genesis (mom) calling. * HOME PHONE:[phone] * Yamilet will be going to [place] at * CONTACT PHONE:[phone] * the end of the month and [...] CALL BY CJ YEPEZ RN 11/06/2000 12:45PM [phone] ADDENDUM: <> 11/06/2000 03:04PM by RADHA PIRES [...] 1553 Note Time: 06/30/99 0001 Status: Signed Manager Payer: Jeri García MD (Physician) IMPRESSION: Sinusitis. 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 :[id number] C: DOCUMENT: [id number] GER OPERATIONAL Nghia Stringer - 04/20/1999 12:01 AM CST Progress Notes signed by Nghai Stringer MD at 04/21/99 1733 Author: Nghia Stringer MD Service: (none) Author Type: Physician Filed: 08/17/10 1445 Note Time: 04/20/99 0001 Status: Signed Manager Payer: Nghia Stringer MD (Physician) IMPRESSION: Acute sinusitis. [...] 10 days' time if symptoms not resolved. [facility]:[id number] C: DOCUMENT: [id number] GER OPERATIONAL Fernando [facility] - 02/26/1997 12:01 AM CST Phone Note signed by at 02/26/97 0804 Author: Shelley King Service: (none) Author Type: (none) Filed: 08/17/10 0149 Note Time: 02/26/97 0001 Status: Signed Manager Payer: Shelley King IMPRESSION: Sore Throat-(Child)-Nurse Guidelines - TREATING PROVIDER: YAKELIN CARUSO - Appointment made with YAKELIN Garcia HOME PHONE: [phone] * SHADY Feb 26 1997 10:20AM SUBJECTIVE: [...] concerns Call taken by BRODIE GARRETT, RN [phone] 02/26/1997 07:55 AM ADDENDUM: GER OPERATIONAL Yakelin Caruso MD - 02/26/1997 12:01 AM CST Progress Notes signed by Yakelin Caruso MD at 03/04/97 1513 Author: Yakelin Caruso MD Service: (none) Author Type: Physician Filed: 08/17/10 0149 Note Time: 02/26/97 0001 Status: Signed Manager Payer: Yakelin Caruso MD (Physician) IMPRESSION: Pharyngitis. SUBJECTIVE: [...] the throat culture results are back. [id number] GER OPERATIONAL Tobias Adorno MD - 12/03/1996 12:01 AM CDT Progress Notes signed by Tobias Adorno MD at 03/15/97 1624 Author: Tobias Adorno MD Service: (none) Author Type: Physician Filed: 08/17/10 0038 Note Time: 12/03/96 0001 Status: Signed Manager Payer: Tobias Adorno MD (Physician) IMPRESSION: (1) Probable [...] for any suspicious changes. PLAN: N/A. lap GER OPERATIONAL Conversion, [facility] - 07/10/1996 12:01 AM CST Phone Note signed by at 07/10/96 1045 Author: Imr Conversion Service: (none) Author Type: (none) Filed: 08/16/10 0397 Note Time: 07/10/96 0001 Status: Signed Manager Payer: Shelley King IMPRESSION: Nail Abnormality TO: MARY MENDOZA FROM: JACKELYN OSBORN RN [phone] * PROVIDER MESSAGE: ROUTINE * 07/10/96 10:40AM * *WITHIN 4 HOURS * MESSAGE: Please call if there is * HOME PHONE:[phone] * something she could do for this at * CONTACT PHONE:[phone] * home. * mom-Genesis * SUBJECTIVE: * [...] the nail has grown out. Occasionally wears hebrew and false nails. No crumbling, yellow, or thickened nails. ALLERGIES/SENSITIVITIES... NKDA 07/10/96 CURRENT MEDICATIONS... none 07/10/96 PERTINENT PAST HISTORY... healthy 07/10/96 WEIGHT: PATIENT IS NOT . PATIENT IS NOT NURSING. ASSESSMENT: Nail Abnormality PLAN: DISPOSITION: NO DISPOSITION GIVEN CALL BY JACKELYN OSBORN RN 07/10/1996 10:36AM [phone] ADDENDUM: Jennifer Wolf APRN, CNP - 01/17/1996 12:01 AM CDT Progress Notes signed by Jennifer Beasley APRN, CNP at 01/22/96 1203 Author: LALI Ag Service: (none) Author Type: Nurse Practitioner Filed: 08/16/102053 Note Time: 01/17/96 0001 Status: Signed Manager Payer: LALI Ag (Nurse Practitioner) IMPRESSION: Healthy almost 11-year-old. SUBJECTIVE: Yamilet is an almost 11-year-old in for routine care. She has been healthy, well and really comes in only for her shots. She is home schooled, and Mom described her as an excellent student. She has friends in the neighborhood and some other family friends through religion. She enjoys biking, rollerblading and walks frequently. [...] check. nbs Electronically signed by Jennifer Beasley, TRAINING PROGRAM ASSISTANT, HIGHWAY TRAFFIC CONTROL TECHNICIAN at 01/22/1996 1:27 PM CDT Mary Mendoza MD - 10/09/1994 12:01 AM CDT Progress Notes signed by Mary Mendoza MD at 10/12/94 0750 Author: Mary Mendoza MD Service: (none) Author Type: Physician Filed: 08/16/10 7602 Note Time: 10/09/94 0001 Status: Signed Manager Payer: Mary Mendoza MD (Physician) IMPRESSION: Rash behind [...] 1:18 PM Resul ts for this LATERAL MANAGER OPERATIONAL procedure are i n the results section. documented in this encounter Results XR Chest PA With Lateral (06/17/2001 1:18 PM MANAGER OPERATIONAL) Anatomical Region Laterality Modality Other Specimen (Source) Anatomical Location Collection Method / Collectio n Time Received Time / Laterality Volume Impressions 06/17/2001 1:18 PM MANAGER OPERATIONAL : ?NORMAL CHEST. FINDINGS: ?CH1 ?THE CARDIOVASCULAR STRUCTURES APPE AR NORMAL. ?NO EVIDENCE OF ACTIVE PULMONARY DI SEASE. TECH-ID : ? VV TRANS-ID: Narrative 06/17/2001 1:18 PM MANAGER OPERATIONAL CLINICAL DATA: ?COUGH Procedure Note Jesse Escobar - 07/06/2016 CLINICAL DATA: COUGH IMPRESSION : NORMAL CHEST. FINDINGS: CH1 THE CARDIOVASCULAR STRUCTURES APPEAR NO RMAL. NO EVIDENCE OF ACTIVE PULMONARY DISEASE . TECH-ID : VV TRANS-ID: Aleks Breen PARene RAD GD documented in this encounter Visit Diagnoses Not on filedocumented in this encounter Care Teams Production Control Analyst Relationship Specialty Start Date End Date Jeri García MD PCP - General 08/02/10 09/06/11 [address] [place] [address] documented as of this encounter
--- OUTSIDE RECORDS SUMMARY | 2022-01-24 10:59 | XMS_ITS | Encounter Summary ---
:1985 Author Organization [facility] Address [address] [place] [address] Care Team Providers Name Role Phone Jeri García MD Primary Care Provider Encounter Details Date Type Department Care Team Description 06/23/2005 Office Visit [facility] [address] Tw[address] Collier MD Dermatology [address] [facility] [address] [place] [address] [place], [place] [address] [phone] Social History Tobacco Use Types Packs/Day Years [...] 1140 Note Time: 06/23/05 0001 Status: Signed Credit Collection Specialist: Twila Collier MD (Physician) NAME: YAMILET DAILY MR: [id number] ACCT: [id number] VISIT: [id number] DICTATING CLINICIAN: TWILA COLLIER MD JOB: [id number] CLINIC PROGRESS NOTE DATE OF VISIT: 06/23/2005 SUBJECTIVE: Zynitl-kvv-itek-old female presents in followup for acne. I [...] follow up with me in two months. RSH:[id number] C: 06/23/05 12:15 DOCUMENT: [id number] EL COATER documented in this encounter Plan of Treatment Not on filedocumented as of this encounter Visit Diagnoses Not on filedocumented in this encounter Care Teams Garbage Collector Relationship Specialty Start Date End Date Jeri García MD PCP - General 08/02/10 09/06/11 [address] [place] [address] documented as of this encounter
--- OUTSIDE RECORDS SUMMARY | 2022-01-24 10:59 | XMS_ITS | Encounter Summary ---
:1985 Author Organization [facility] Address [address] [place] [address] Care Team Providers Name Role Phone Jeri García MD Primary Care Provider Encounter Details Date Type Department Care Team Description 01/08/2003 PN Conversion Only OZZIE CONVERSION Jeri García, [address] [place] [address] [address] [place] [address] (Wo rk) Social History Tobacco Use [...] Patient: YAMILET DAILY Culture, Urine @ ?Collected: ??[id number] ??1412 Source: Clean Ca ?Processed: ??[id number] ??1412 ? G SENS Final Report ------ ?[id number] ??1332 No growth @ = URINE CULTURE Performed at ??[address] [place], [place] ?[address] Specimen (Source) Anatomical Collection Method Collection Time Re ceived Time Location / / Volume Laterality 01/08/2003 2:12 PM CDT Jeri García MD LAB_1 Performing Organization Address City/State/ZIP Code Phon e Number HP CONVERSION (ABNORMAL) Urinalysis Complete (01/08/2003 1:59 PM CDT) [facility] gist Method Time Signature Glucose, Negative Neg-Trac HP CONVERSION Qualitative U Protein Urine Negative Neg-Trac HP CONVERSION Ketones Negative Negative HP CONVERSION U BILI Negative Negative HP CONVERSION U Specific <=1.005 1.005 - 25 HP CONVERSION [place] Blood Urine Moderate Negative HP CONVERSION (A) [...] on filedocumented in this encounter Care Teams Asphalt Tar And Gravel Roofer Relationship Specialty Start Date End Date Jeri García MD PCP - General 08/02/10 09/06/11 [address] [place], [place] [address] documented as of this encounter
--- OUTSIDE RECORDS SUMMARY | 2022-01-24 10:59 | XMS_ITS | Encounter Summary ---
:1985 Author Organization [facility] Address [address] [place] [address] Care Team Providers Name Role Phone Jeri García MD Primary Care Provider Encounter Details Date Type Department Care Team Description 04/19/2005 Office Visit [facility] [address] Twila Collier MD Dermatology [address] [facility] [address] [place] [address] [place], [place] [address] [phone] Social History Tobacco Use Types Packs/Day Years [...] 1020 Note Time: 04/19/05 0001 Status: Signed Rock Contractor: Twila Collier MD (Physician) NAME: YAMILET DAILY MR: [id number] ACCT: [id number] VISIT: [id number] DICTATING CLINICIAN: TWILA COLLIER MD JOB: [id number] CLINIC PROGRESS NOTE DATE OF VISIT: 04/19/2005 [...] a half months. CC: MARIANO BRAUN PA-C [facility]:[id number] C: 04/19/05 13:44 DOCUMENT: [id number] ESSOR OF BIOLOGICAL SCIENCES documented in this encounter Plan of Treatment Not on filedocumented as of this encounter Visit Diagnoses Not on filedocumented in this encounter Care Teams Material Attendant Relationship Specialty Start Date End Date Jeri García MD PCP - General 08/02/10 09/06/[address] [place] [address] documented as of this encounter
--- OUTSIDE RECORDS SUMMARY | 2022-01-24 10:59 | XMS_ITS | Encounter Summary ---
:1985 Author Organization [facility] Address [address] [place] [address] Care Team Providers Name Role Phone Jeri García MD Primary Care Provider Encounter Details Date Type Department Care Team Description 10/28/2003 Office Visit [place] [facility] Mikala Del Valle PA-C [address] [facility] [address] [place] [address] [place] [address] [phone] (Wo rk) Social History Tobacco Use Types Packs/Day Years Used Date Smoking Tobacco: Never Assessed Sex Assigned at Date Recorded Not on file documented as of this encounter Progress Notes Mikala Del Valle PA-C - 10/28/2003 12:01 AM CDT Progress Notes signed by Mikala Del Valle PA-C at 01/25/04 4983 Author: Mikala Kumari PA-C Service: (none) Author Type: Physician Greenkeeper Filed: 08/19/10 0010 Note Time: 10/28/03 0001 Status: Signed Embedded Firmware Engineer: Mikala Kumari PA-C (Physician Greenkeeper) NAME: YAMILET DAILY MR: [id number] ACCT: [id number] VISIT: [id number] DICTATING CLINICIAN: ROCIO DRIVER JOB: [id number] CLINIC PROGRESS NOTE DATE OF VISIT: 10/28/2003 [...] counseling on how to treat the acne. TLW:[id number] C: 10/28/03 16:10 DOCUMENT: [id number] documented in this encounter Plan of Treatment Not on filedocumented as of this encounter Visit Diagnoses Not on filedocumented in this encounter Care Teams Sample Prep Technician Relationship Specialty Start Date End Date Jeri García MD PCP - General 08/02/10 09/06/11 [address] [place] [address] documented as of this encounter
--- OUTSIDE RECORDS SUMMARY | 2022-01-24 10:59 | XMS_ITS | Encounter Summary ---
:1985 Author Organization [facility] Address [address] [place] [address] Care Team Providers Name Role Phone Jeri García MD Primary Care Provider Reason for Visit Reason Comments Other Encounter Details Date Type Department Care Team Description 03/01/2005 Telephone [facility], Message Other [address] [place] [address] Social History Tobacco Use Types Packs/Day Years Used Date Smoking Tobacco: Never Assessed Sex Assigned at Date Recorded Not on file documented as of this encounter Progress Notes Center, Message - 03/01/2005 3:45 PM CST Phone Note filed by Zango at 08/15/102200 Author: Zango Service: (none) Author Type: (none) Filed: 08/15/102200 Note Time: 03/01/051544 Status: Signed Material Preparation Worker: Zango MESSAGE TO CARE TEAM NAME OF CALLER: anika Yamilet Goldman NAME OF CLINICIAN: Dr García MESSAGE: Pt is calling for a referral to dermatology. Pt is requesting a call-back either way to let her know if this can be done. CALL BACK PHONE #: [phone], cell BEST TIME TO CALL BACK: anytime Is it OK to leave detailed message on voicemail? yes Created on [id number] 3:45pm by PAULA VILLALTA On [id number] 4:09pm XAVIER HASKINS wrote: Referral for what condition? Acknowledged by XAVIER HASKINS on 2Nov 4:09pm On [id number] 4:17pm APRIL HOLLIDAY wrote: Pt would like to see Dermatology regarding ongoing acne. On [id number] 4:37pm XAVIER HASKINS wrote: OK to see [facility] for acne Acknowledged by XAVIER HASKINS on 2Nov05 4:37pm On [id number] 4:46pm RADHA PIRES wrote: Pt notified and will make appointment with derm. TRONICS ENGINEERING PROFESSOR documented in this encounter Plan of Treatment Not on filedocumented as of this encounter Visit Diagnoses Not on filedocumented in this encounter Care Teams Predatory Game Hunter Relationship Specialty Start Date End Date Jrei García MD PCP - General 08/02/10 09/06/[address] [place] [address] documented as of this encounter
--- OUTSIDE RECORDS SUMMARY | 2022-01-24 10:59 | XMS_ITS | Encounter Summary ---
:1985 Author Organization [facility] Address [address] [place] [address] Care Team Providers Name Role Phone Megan García MD Primary Care Provider Reason for Visit Reason Comments Other Encounter Details Date Type Department Care Team Description 11/03/2004 Telephone [facility] [facility] Tina, Message Other [address] [place] [address] Social History Tobacco Use Types Packs/Day Years Used Date Smoking Tobacco: Never Assessed Sex Assigned at Date Recorded Not on file documented as of this encounter Progress Notes Khushi Gibson - 11/03/2004 10:31 AM CDT Phone Note filed by Khushi Gibson RN at 08/15/101912 Author: Khushi Gibson RN Service: (none) Author Type: (none) Filed: 08/15/101912 Note Time: 11/03/04 1031 Status: Signed Senior Contract Specialist: Khushi Gibson RN (Registered Nurse) Pt saw [...] helped. Let pt know your recommendations at [phone]. Pharm is [facility] in [place] [phone]. Created on 03Nov2004 10:31am by KHUSHI GIBSON On 03Nov2004 12:35pm MEGAN GARCÍA wrote: we could try doxycyline instead, 100 mg dialy #30, 5 refills, to see if it works as well but without the discoloration. Acknowledged by MEGAN GARCÍA on 12:35pm On 03Nov2004 1:23pm BOBBY CENTENO wrote: Rx called in as above, and left message on pt voice mail. ESS ENGINEERING INTERN documented in this encounter Plan of Treatment Not on filedocumented as of this encounter Visit Diagnoses Not on filedocumented in this encounter Care Teams Lime Kiln And Recausticizing Operator Relationship Specialty Start Date End Date Megan García MD PCP - General 08/02/10 09/06/11 [address] [place] [address] documented as of this encounter
--- OUTSIDE RECORDS SUMMARY | 2022-01-24 10:59 | XMS_ITS | Encounter Summary ---
:1985 Author Organization [facility] Address [address] [place] [address] Care Team Providers Name Role Phone Unassigned, Provider Primary Care Provider Unavailable Reason for Visit Reason Comments SORE THROAT,NURSE Encounter Details Date Type Department Care Team Description 12/13/2006 Office Visit [facility] Acute P haryngitis (Primary Department Dx) [address] [place], [place] [address] Social History Tobacco Use [...] symptoms or history includes: NONE Phone number: [phone] (home) [phone] (work), alternate number . A: Sore Throat [...] SCREEN (WAITI [[id number]] (12/13/2006 1:59 PM CDT) [facility] Method Time Signature Patient Home None [facility] Phone # Patient Work None [facility] Phone # Grp A Rapid Negative [facility] Screen Grp A Culture Negative [facility] Final Specimen Anatomical Collection Method Collection Time Receive d Time (Source) Location / / Volume Laterality 12/13/2006 1:59 PM 7 2:00 CDT PM CDT Myrna Torres MD LAB_1 Performing Organization Address City/State/ZIP Code Phon e Number [facility] [phone] [facility] [address] [place] [phone] documented in this encounter Visit Diagnoses Diagnosis Acute pharyngitis - Primary documented in this encounter Care Teams Experience Design Director Relationship Specialty Start Date End Date Unassigned, Provider PCP - General 01/31/00 08/01/10 [address] [place] [address] documented as of this encounter
--- OUTSIDE RECORDS SUMMARY | 2022-01-24 10:59 | XMS_ITS | Encounter Summary ---
:1985 Author Organization [facility] Address [address] [place] [address] Care Team Providers Name Role Phone Jeri García MD Primary Care Provider Encounter Details Date Type Department Care Team Description 01/08/2003 PN Conversion Only AMY CONVERSION [address] [place] [address] Social History Tobacco Use Types Packs/Day Years [...] 1231 Note Time: 03/09/03 0001 Status: Signed Manager Spring: Clinician Phone Note (Resource) TO: JERI GARCÍA FROM: JUAN PALMA RN [phone] * PROVIDER MESSAGE: ROUTINE * 03/09/03 01:36PM * *WITHIN 4 HOURS * MESSAGE: Mom calling. Pt. is studying * HOME PHONE:[phone] * in [facility], will be there another * CONTACT PHONE:[phone] * 6 wks . Her IBS has been under good * Genesis * control with Bentyl, there were no * PHARMACY: [phone] * refills from 01/14 phone note order. [...] CALL BY JUAN PALMA RN 03/09/2003 01:34PM [phone] ADDENDUM: <> 03/09/2003 02:25PM by RHONDA HYMAN HOCKEY SCOUT: Per Dr. García rx. for Bentyl 10mgs sig 1 tab po qid prn #100 with 1 refill called to pharmacy. A CENTER SPECIALIST Phone Note, Clinician - 01/16/2003 12:01 AM CDT Phone Note filed by Clinician Phone Note at 08/16/10 8731 Author: Clinician Phone Note Service: (none) Author Type: Resource Filed: 08/16/10 1208 Note Time: 01/16/03 0001 Status: Signed Manager Spring: Clinician Phone Note (Resource) TO: JERI GARCÍA FROM: ROYA GILES [phone] * PROVIDER MESSAGE: ROUTINE * 01/16/03 10:02AM * *WITHIN 4 HOURS * MESSAGE: Yamilet is calling * HOME PHONE:[phone] * requesting her ultra sound results * CONTACT PHONE:[phone] * she had [place]. Please call her at [phone] SUBJECTIVE: ALLERGIES/SENSITIVITIES... nkda 01/12/03 not verified 01/16/03 CURRENT MEDICATIONS... Cipro 01/12/03 not verified 01/16/03 PERTINENT PAST HISTORY... n01/12/03 not verified 01/16/03 WEIGHT: OMITTED ASKING ABOUT . OMITTED ASKING ABOUT NURSING. ASSESSMENT: PLAN: DISPOSITION: NO DISPOSITION GIVEN CALL BY ROYA GILES 01/16/2003 10:01AM [id number] ADDENDUM: <> 01/16/2003 01:36PM by JERI CORTES HOCKEY SCOUT: Alex Quintana, normal kidney U/S. Msg lft at contact # with this info. A CENTER SPECIALIST Phone Note, Clinician - 01/14/2003 12:01 AM CDT Phone Note filed by Clinician Phone Note at 08/16/10 1207 Author: Clinician Phone Note Service: (none) Author Type: Resource Filed: 08/16/10 1205 Note Time: 01/14/03 0001 Status: Signed Manager Spring: Clinician Phone Note (Resource) TO: JERI GARCÍA FROM: ROYA GILES [phone] * PROVIDER MESSAGE: ROUTINE * 01/14/03 08:13AM * *WITHIN 4 HOURS * MESSAGE: Yamilet is still having * HOME PHONE:[phone] * pain even with the medication that * CONTACT PHONE:[phone] * she was given , her mom is wondering if there is anything else she can be taking. Please call her at [phone] SUBJECTIVE: ALLERGIES/SENSITIVITIES... nkda 01/12/03 not verified 01/14/03 CURRENT MEDICATIONS... Cipro 01/12/03 not verified 01/14/03 PERTINENT PAST HISTORY... n01/12/03 not verified 01/14/03 WEIGHT: OMITTED ASKING ABOUT . OMITTED ASKING ABOUT NURSING. ASSESSMENT: PLAN: DISPOSITION: NO DISPOSITION GIVEN CALL BY ROYA GILES 01/14/2003 08:11AM [id number] ADDENDUM: <> 01/14/2003 02:02PM by RHONDA HYMAN HOCKEY SCOUT: Per Dr. García rx for Bentyl 10mgs [...] for results to be given to Mom. A CENTER SPECIALIST Phone Note, Clinician - 01/12/2003 12:01 AM CDT Phone Note filed by Clinician Phone Note at 08/16/10 1206 Author: Clinician Phone Note Service: (none) Author Type: Resource Filed: 08/16/10 1206 Note Time: 01/12/03 0001 Status: Signed Manager Spring: Clinician Phone Note (Resource) TO: JERI GARÍCA FROM: JUAN PALMA RN [phone] * PROVIDER MESSAGE: ROUTINE * 01/12/03 11:10AM * *WITHIN 4 HOURS * MESSAGE: Pt. was seen 01/08. She was * HOME PHONE:[phone] * started on Cipro for UTI. Pain is * CONTACT PHONE:[phone] * improving but c/o stomach ache. Is * PHARMACY: [phone] * taking abx. with food. Would like * Amy WM * CT results from 01/09. SUBJECTIVE: ALLERGIES/SENSITIVITIES... nkda 01/12/03 CURRENT MEDICATIONS... Cipro 01/12/03 PERTINENT PAST HISTORY... 01/12/03 WEIGHT: OMITTED ASKING ABOUT . OMITTED ASKING ABOUT NURSING. ASSESSMENT: CT results PLAN: DISPOSITION: NO DISPOSITION GIVEN CALL BY JUAN PALMA RN 01/12/2003 11:09AM [phone] ADDENDUM: <> 01/12/2003 01:37PM by STAN CHAVEZ: Ok per Dr. García to schedule pt. for a R Kidney US for area of decreased perfusion seen on R lower pole of CT. Scheduled and notified. A CENTER SPECIALIST documented in this encounter Plan of [...] normal appearing kidneys. ? ?See above discussion. [id number] D[facility] BRITTANY MONTEIRO RADIOLOGIST Narrative 01/15/2003 [...] normal appearing kidneys. S ee above discussion. [id number][facility] Dictating BRITTANY MONTEIRO RADIOLOGIST Jeri García [...] amount of free fluid within the pelvis. tss/[id number] Dictating AZEEM RITCHIE RADIOLOGIST Procedure Note Azeem [...] amount of free fluid within the pelvis. tss/[id number] Dictating AZEEM RITCHIE RADIOLOGIST Jeri García MD [...] ultrasound may be useful in further evaluation. MI rlr [id number] Dictating AZEEM RITCHIE RADIOLOGIST Procedure Note Azeem [...] ultrasound may be useful in further evaluation. MI rlr [id number] Dictating AZEEM RITCHIE RADIOLOGIST Jeri García MD RAD CT documented in this encounter Visit Diagnoses Not on filedocumented in this encounter Care Teams Interlocker Maintainer Relationship Specialty Start Date End Date Jeri García MD PCP - General 08/02/10 09/06/11 [address] [place] [address] documented as of this encounter
--- OUTSIDE RECORDS SUMMARY | 2022-01-24 10:59 | XMS_ITS | Encounter Summary ---
:1985 Author Organization [facility] Address [address] [place] [address] Care Team Providers Name Role Phone Jeri García MD Primary Care Provider Encounter Details Date Type Department Care Team Description 12/27/2005 Office Visit [facility] [address] Twila Collier MD Dermatology [address] [facility] [address] [facility] [place] [address] [place], [place] [address] [phone] Social History Tobacco Use Types Packs/Day Years Used Date Smoking Tobacco: Never Assessed Sex Assigned at Date Recorded Not on file documented as of this encounter Progress Notes Twila Collier MD - 12/27/2005 12:01 AM CDT Progress Notes signed by Twila Collier MD at 01/23/067 Author: Twila Collier MD Service: (none) Author Type: Physician Filed: 08/19/10 1521 Note Time: 12/27/05 0001 Status: Signed Print Cutter: Twila Collier MD (Physician) NAME: YAMILET DAILY MR: [id number] ACCT: [id number] VISIT: [id number] DICTATING CLINICIAN: TWILA COLLIER MD JOB: [id number] LOC: 427 CLINIC PROGRESS NOTE DATE OF [...] can try to wean off ?. [facility]:[id number] C: 01/03/06 07:03 DOCUMENT: [id number] documented in this encounter Plan of Treatment Not on filedocumented as of this encounter Visit Diagnoses Not on filedocumented in this encounter Care Teams Turkey Farmer Relationship Specialty Start Date End Date Jeri García MD PCP - General 08/02/10 09/06/11 [address] [place] [address] documented as of this encounter
--- OUTSIDE RECORDS SUMMARY | 2022-01-24 10:59 | XMS_ITS | Encounter Summary ---
:1985 Author Organization [facility] Address [address] [place] [address] Care Team Providers Name Role Phone Jeri García MD Primary Care Provider Encounter Details Date Type Department Care Team Description 12/11/2002 PN Conversion Only OZZIE CONVERSION Mariano Braun PAScottieC [address] [place] [address] [place] [address] (Wo rk) Social History Tobacco Use Types [...] - HP CONVERSION Hemoglobin Conc 36.5 gm/dL [place] RDW 12.3 11.0 - HP CONVERSION 15.0 % Platelet Count 207 140 - 450 HP CONVERSION k/cmm Specimen (Source) Anatomical Collection Method Collection Time Re ceived Time Location / / Volume Laterality 12/11/2002 12:10 PM CDT Mariano Braun PA-C LAB_1 Performing Organization Address City/[facility] Code Phon e Number HP CONVERSION (ABNORMAL) Urinalysis Complete (12/11/2002 12:10 PM CDT) Patholo gist Method Time Signature Glucose, Negative Neg-Trac HP CONVERSION Qualitative U Protein Urine Negative Neg-Trac HP CONVERSION Ketones Negative Negative HP CONVERSION U BILI Negative Negative HP CONVERSION U Specific 1.010 1.005 - 25 HP CONVERSION [place] Blood Urine Small (A) Negative HP CONVERSION [...] Mariano Braun PA-C LAB_1 Performing Organization Address [facility] Phon e Number HP CONVERSION Electrolytes (NA, [...] 12/11/2002 12:10 PM CDT Mariano Lugo Aparna SAVAEG LAB_1 Performing Organization Address City/[facility] Phon e Number HP CONVERSION Thyroid Stimulating Hormone (12/11/2002 12:10 PM CDT) athologist Signature Thyroid 0.95 0.20 - HP CONVERSION Stimulating 5.50 Hormone uIU/mL Specimen (Source) Anatomical Collection Method Collection Time Re ceived Time Location / / Volume Laterality 12/11/2002 12:10 PM CDT Mariano Lugo Aparna CHAN-Joesph LAB_1 Performing Organization Address [facility] Code Phon e Number HP CONVERSION Hgb A1c (12/11/2002 12:10 PM CDT) athologist Signature HGB A1C 4.8 <6.0 % HP CONVERSION Specimen (Source) Anatomical Collection Method Collection Time Re ceived Time Location / / Volume Laterality 12/11/2002 12:10 PM CDT Mariano Lugo Aparna CHAN-Joesph LAB_1 Performing Organization Address [facility] Code Phon e Number HP CONVERSION documented in this encounter Visit Diagnoses Not on filedocumented in this encounter Care Teams Oxygen Furnace Operator Relationship Specialty Start Date End Date Jeri García MD PCP - General 08/02/10 09/06/11 [address] [place] [address] documented as of this encounter
--- OUTSIDE RECORDS SUMMARY | 2022-01-24 10:59 | XMS_ITS | Encounter Summary ---
:1985 Author Organization [employer] Address [address] [place] [address] Care Team Providers Name Role Phone Unassigned, Provider Primary Care Provider Unavailable Reason for Visit Reason Comments CONGESTION Encounter Details Date Type Department Care Team Description 06/27/2008 Office Visit [facility] [place] (Primary Dx); [place] Pharyngitis [address] [place], [place] [address] Social History Tobacco Use Types Packs/Day Years Used Date Smoking Tobacco: Never Alcohol Use Standard Drinks/Week Comments No 0 (1 standard drink = 0.6 oz pure alcoho l) Sex Assigned at Date Recorded Not on file documented as of this encounter Last Filed Vital Signs Vital Sign Reading Time Taken Comments Blood Pressure 120/80 06/27/2008 2:20 PM INSERTER Pulse 78 06/27/2008 2:15 PM INSERTER Temperature 36.6 ??C (97.8 ??F) 06/27/2008 2:15 PM INSERTER Respiratory Rate 18 06/27/2008 2:15 PM INSERTER Oxygen Saturation - - Inhaled Oxygen Concentration - - Weight 54.4 kg (120 lb) 06/27/2008 2:15 PM INSERTER Height 176.5 cm (5' 9.5) 06/27/2008 2:15 PM INSERTER Body Mass Index 17.47 06/27/2008 2:15 PM INSERTER documented in this encounter Progress Notes Halima Jimenez - 06/27/2008 2:54 PM CST This office note has been dictated. Halima Jimenez MD RTER Halima Jimenez - 06/27/2008 12:00 AM INSERTER Chief Complaint: Congestion. Subjective: Patient is a [...] a Mucinex with a cough suppressant. Objective: Bkqbzg-zdkw-ynnu-old female who is awake, cooperative. She is [...] pharyngitis. Plan: Recommend the patient continue using zgrv-hxw-ldpndsc medications, get lots of rest, take some fluids. If her throat culture is positive, will notify her and start her on antibiotic. At this time, I think it is more viral and if she has increasing symptoms, she can follow up with the primary doctor. P / A [facility] cc: RTER documented in this encounter Plan of Treatment Not on filedocumented as of this encounter Procedures Procedure Name Priority Date/Time Associated Diagnosis Comme nts STREP GRP A, RAPID Waiting 06/27/2008 2:21 PM Pharyngitis Res ults for this SCREEN INSERTER procedure are i n the results section. documented in this encounter Results STREP GRP A, RAPID SCREEN (06/27/2008 2:21 PM INSERTER) [facility] Method Time Signature Grp A Rapid Negative [facility] Screen Grp A Culture Negative [facility] Final Specimen Anatomical Collection Method Collection Time Receive d Time (Source) Location / / Volume Laterality 06/27/2008 2:21 PM 200 9 2:30 INSERTER PM INSERTER Halima Jimenez MD LAB_1 Performing Organization Address City/State/ZIP Code Phon e Number [facility] [phone] [facility] [address] [phone] documented in this encounter Visit Diagnoses Diagnosis Acute URI - Primary Acute upper respiratory infections of un specified site Pharyngitis Acute pharyngitis documented in this encounter Care Teams Clinical Laboratory Science Professor Relationship Specialty Start Date End Date Unassigned, Provider PCP - General 01/31/00 08/01/10 [address] [place] [address] documented as of this encounter
--- OUTSIDE RECORDS SUMMARY | 2022-01-24 10:59 | XMS_ITS | Encounter Summary ---
:1985 Author Organization [facility] Address [address] [place] [address] Care Team Providers Name Role Phone Jeri García MD Primary Care Provider Encounter Details Date Type Department Care Team Description 05/23/2004 PN Conversion Only OZZIE CONVERSION Jeri García, [address] [place] [address] [address] [place], [place] [id number] (Wo rk) Social History Tobacco Use Types Packs/Day Years Used Date Smoking Tobacco: Never Assessed Sex Assigned at Date Recorded Not on file documented as of this encounter Plan of Treatment Not on filedocumented as of this encounter Procedures Procedure Name Priority Date/Time Associated Comments Diagnosis DEHYDROEPIANDROSTERONE Routine 05/23/2004 11:37 R esults for AM UNIT TECHNICIAN this procedure are in the results section. TESTOSTERONE TOTAL ADULT Routine 05/23/2004 11:37 Results for MALES AM UNIT TECHNICIAN this procedure are in the results section. GLUCOSE Routine 05/23/2004 11:37 Results for AM UNIT TECHNICIAN this procedure are in the results section. THYROID STIMULATING HORMONE Routine 05/23/2004 11:37 Results for AM UNIT TECHNICIAN this procedure are in the results section. LH Routine 05/23/2004 11:37 Results for AM UNIT TECHNICIAN this procedure are in the results section. FSH Routine 05/23/2004 11:37 Results for AM UNIT TECHNICIAN this procedure are in the results section. documented in this encounter Results Glucose (05/23/2004 11:37 AM UNIT TECHNICIAN) P athologist Signature Lab Glucose 89 60 - 100 HP CONVERSION mg/dL Specimen (Source) Anatomical Collection Method Collection Time Re ceived Time Location / / Volume Laterality 05/23/2004 11:37 AM UNIT TECHNICIAN Jeri García MD LAB_1 Performing Organization Address City/State/ZIP Code Phon e Number HP CONVERSION Testosterone, Total Adult Males (05/23/2004 11:37 AM UNIT TECHNICIAN) Analysis Performed At Patho logist Time Signature Testosterone 62 10 - 75 HP CONVERSION Level ng/dL Specimen (Source) Anatomical Collection Method Collection Time Re ceived Time Location / / Volume Laterality 05/23/2004 11:37 AM UNIT TECHNICIAN Jeri García MD LAB_1 Performing Organization Address City/[facility]/ZIP Code Phon e Number HP CONVERSION Thyroid Stimulating Hormone (05/23/2004 11:37 AM UNIT TECHNICIAN) athologist Signature Thyroid 1.48 0.20 - HP CONVERSION Stimulating 5.50 Hormone uIU/mL Specimen (Source) Anatomical Collection Method Collection Time Re ceived Time Location / / Volume Laterality 05/23/2004 11:37 AM UNIT TECHNICIAN Jeri García MD LAB_1 Performing Organization Address City/[facility]/ZIP Code Phon e Number HP CONVERSION Dehydroepiandrosterone (05/23/2004 11:37 AM UNIT TECHNICIAN) Patholo gist Method Time Signature Dehydroepiandrosterone 5.4 1.9 - 7.6 HP CONV ERSION ng/mL Specimen (Source) Anatomical Collection Method Collection Time Re ceived Time Location / / Volume Laterality 05/23/2004 11:37 AM UNIT TECHNICIAN Jeri García MD LAB_1 Performing Organization Address City/[facility]/ZIP Code Phon e Number HP CONVERSION LH (05/23/2004 11:37 AM UNIT TECHNICIAN) P athologist Signature Lh 25 mIU/mL HP CONVERSION Comment: ?LH Value (mIU/mL) Female: ? Range Normally Ovulating Females -Follicular Phase ? 2-13 -Mid-Cycle Peak ? 9- -Luteal Phase ? 0.5-17 Postmenopausal Females ? 5-52 Specimen (Source) Anatomical Collection Method Collection Time Re ceived Time Location / / Volume Laterality 05/23/2004 11:37 AM UNIT TECHNICIAN Jeri García MD LAB_1 Performing Organization Address City/State/ZIP Code Phon e Number HP CONVERSION FSH (05/23/2004 11:37 AM UNIT TECHNICIAN) P athologist Signature Follicle 5.1 mIU/mL HP CONVERSION Stimulating Hormone Comment: ? FSH Value(mIU/mL) Normally Menstruating Females ?Range -Follicular Phase ?3.6 - 16.0 -Mid-Cycle Peak ?3.4 - 33.0 -Luteal Phase ?1.5 - 9.1 Postmenopausal Females ?22.9 - 167 Specimen (Source) Anatomical Collection Method Collection Time Re ceived Time Location / / Volume Laterality 05/23/2004 11:37 AM UNIT TECHNICIAN Jeri García MD LAB_1 Performing Organization Address City/State/ZIP Code Phon e Number HP CONVERSION documented in this encounter Visit Diagnoses Not on filedocumented in this encounter Care Teams Sheet Rock Finisher Relationship Specialty Start Date End Date Jeri García MD PCP - General 08/02/10 09/06/11 [address] [place], [place] [address] documented as of this encounter
--- OUTSIDE RECORDS SUMMARY | 2022-01-24 10:59 | XMS_ITS | Encounter Summary ---
:1985 Author Organization [facility] Address [address] [place] [address] Care Team Providers Name Role Phone Jeri García MD Primary Care Provider Encounter Details Date Type Department Care Team Description 03/18/2003 PN Conversion Only OZZIE CONVERSION [address] [place] [address] Social History Tobacco Use Types Packs/Day Years Used Date Smoking Tobacco: Never Assessed Sex Assigned at Date Recorded Not on file documented as of this encounter Plan of Treatment Not on filedocumented as of this encounter Visit Diagnoses Not on filedocumented in this encounter Care Teams Cook Specialty Foreign Food Relationship Specialty Start Date End Date Jeri García MD PCP - General 08/02/10 09/06/[address] [id number] documented as of this encounter
--- NOTE | 2022-01-24 11:00 | CRLHL7_ITS ---
For Patients: As a result of the Cures Act, medical imaging exams and procedure reports are released immediately into your electronic medical record. You may view this report before your referring provider. If you have questions, please contact your health care provider. Indication: left unilateral tonsillar swelling Technique: Grayscale and color Doppler ultrasound of the neck soft tissues performed. Comparison: None Findings: Normal right-sided lymph nodes are present measuring 1.1 x 0.4 x 0.8 cm and 1.7 x 0.4 x 0.9 cm. There is a normal left submandibular lymph node measuring 1.2 x 0.5 x 0.7 cm. A mildly enlarged left cervical lymph node is also present measuring 2.3 x 0.9 x 1.6 cm. Normal vascularity noted bilaterally. Impression: Mildly prominent reactive left cervical lymph node measuring 2.3 x 0.9 x 1.6 cm. Dictated by Musa Stauffer MD @ 01/24/2022 11:46:50 AM (Electronically Signed)
== END 2022-01-24 10:56 | disposition home or self-care (01) ==
LOC: US 10:55
PROVIDERS: PCP Family Medicine; Visit Provider Family Medicine
DX: J35.1 Hypertrophy of tonsils (principal); R59.9 Enlarged lymph nodes, unspecified
CPT/HCPCS: 76536

== ENCOUNTER 2022-05-22 07:31 | Outpatient (CLI) | payer OTHER, SELFPAY ==
--- NOTE | 2022-05-22 07:45 | CRLHL7_ITS ---
For Patients: As a result of the Cures Act, medical imaging exams and procedure reports are released immediately into your electronic medical record. You may view this report before your referring provider. If you have questions, please contact your health care provider. DIGITAL DIAGNOSTIC BILATERAL MAMMOGRAM USING TOMOSYNTHESIS AND COMPUTER-AIDED DETECTION INDICATION: 37-year-old female. Intermittent lower outer quadrant LEFT breast pain over the last 4 months. The patient is undergoing intravenous fertilization hormonal therapy. 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 No palpable abnormality today. TECHNIQUE: CC and MLO views were obtained. This digital study was evaluated with the benefit of computer-aided detection. Digital breast tomosynthesis utilized. COMPARISON: Outside mammogram 05/28/2019 from Emma Alejo in [facility]. FINDINGS: Breast Composition: The breasts are extremely dense, which limits the sensitivity of mammography. Biopsy clip central upper LEFT breast 12 o`clock position denoting a biopsy-proven fibroadenoma. No suspicious microcalcification or region of architecture distortion. No abnormality in the lower outer quadrant of the LEFT breast. After discussion with the patient, ultrasound is not recommended at this time. Annual mammography is recommended beginning age 40. IMPRESSION: 1. Biopsy change LEFT breast. 2. The examination is otherwise negative. BI-RADS Category 2: Benign A lay language report of this examination will be provided to the patient. Dictated by: Jesse Gill MD @05/22/2022 8:48:56 AM /Dictated by: Jesse Gill MD @ 05/22/2022 8:48:00 AM (Electronically Signed)
== END 2022-05-22 07:32 | disposition home or self-care (01) ==
LOC: MAMMO 07:32
PROVIDERS: PCP Family Medicine; Visit Provider Registered Nurse
DX: N64.4 Mastodynia (principal); N63.20 Unspecified lump in the left breast, unspecified quadrant
CPT/HCPCS: 77066; G0279

== ENCOUNTER 2022-08-02 12:14 | Outpatient (CLI) | payer OTHER, SELFPAY ==
--- NOTE | 2022-08-02 12:15 | CRLHL7_ITS ---
For Patients: As a result of the Cures Act, medical imaging exams and procedure reports are released immediately into your electronic medical record. You may view this report before your referring provider. If you have questions, please contact your health care provider. INDICATION: First trimester scan, establish dates. COMPARISON: None. TECHNIQUE: Real-time schwarz-scale imaging of the pelvis was performed. FINDINGS: Sonographic imaging demonstrates a single living intrauterine gestation. The embryo demonstrates a regular cardiac rate measuring 171 beats per minute. The embryo`s crown-rump length measurement of 2.3 cm corresponds to a gestational age of 9 weeks 0 days with a sonographic due date of 03/07/2023. There is a normal-appearing yolk sac. There are no gross abnormalities noted within the embryo at this early state of development. The gestational sac has a normal appearance. There is a 14 x 4 x 9 millimeter perigestational hemorrhage. The amount of fluid within the sac appears appropriate for gestational age. The cervix is closed. The myometrium appears normal. The ovaries are of normal size. Trace pelvic free fluid. IMPRESSION: Single living intrauterine with sonographic gestational age 9 weeks 0 days and sonographic due date of 03/07/2023. Small subchorionic hemorrhage measuring 14 x 4 x 9 millimeters. Dictated by Musa Stauffer MD @ 08/02/2022 1:00:26 PM (Electronically Signed)
== END 2022-08-02 12:15 | disposition home or self-care (01) ==
LOC: US 12:15
PROVIDERS: PCP Family Medicine; Visit Provider Registered Nurse
DX: O09.521 Supervision of elderly multigravida, first trimester (principal); Z3A.08 8 weeks gestation of pregnancy
CPT/HCPCS: 0353U; 76817; 84443; 86703; 86803; 86850; 86900; 86901; 87340; 87491; 87591

== ENCOUNTER 2022-08-02 13:13 | Outpatient (CLI) | payer OTHER, SELFPAY ==
[2022-08-02 16:50] LABS: Chlamydia DNA Amplified* NOT DETECTED (No Detected); GC DNA Amplified* NOT DETECTED (No Detected)
== END 2022-08-02 13:14 | disposition home or self-care (01) ==
PROVIDERS: PCP Family Medicine; Visit Provider Registered Nurse
DX: Z34.91 Encounter for supervision of normal pregnancy, unspecified, first trimester (principal); Z3A.01 Less than 8 weeks gestation of pregnancy
CPT/HCPCS: 0353U; 84443; 86592; 86703; 86762; 86787; 86803; 86850; 86900; 86901; 87086; 87340

== ENCOUNTER 2022-12-19 14:03 | Outpatient (CLI) | payer OTHER, SELFPAY | END 2022-12-19 14:04 | disposition home or self-care (01) | LOC: NFLDREF 12-23 07:44 | PROVIDERS: PCP Family Medicine; Referring Provider Family Medicine; Visit Provider Advanced Practice Midwife | DX: O09.513 Supervision of elderly primigravida, third trimester (principal); Z3A.28 28 weeks gestation of pregnancy | CPT/HCPCS: 86592 ==

== ENCOUNTER 2023-01-22 12:45 | Outpatient (CLI) | payer OTHER, SELFPAY ==
--- NOTE | 2023-01-22 13:00 | CRLHL7_ITS ---
For Patients: As a result of the Century Cures Act, medical imaging exams and procedure reports are released immediately into your electronic medical record. You may view this report before your referring provider. If you have questions, please contact your health care provider. INDICATION: Third trimester scan, evaluate growth. Advanced maternal age. COMPARISON: 11/03/2022 TECHNIQUE: Real time schwarz scale imaging of the fetus was performed. FINDINGS: Sonographic imaging demonstrates a single living intrauterine gestation. Fetus demonstrates a regular cardiac rate of 126 beats per minute. Fetus has a text position. The placenta lies posteriorly. Amniotic fluid volume appears normal and there is a single deepest vertical pocket: 5.0 cm. The estimated weight is 2345gm which lies at the 58th %. On the prior OB ultrasound exam dated 11/03/2022 the estimated weight was at the 49th%. BPD 82nd percentile. HC 75th percentile. AC 71st percentile. FL 22nd percentile. The HC/AC ratio measures 1.06 range (0.94-1.11). IMPRESSION: Sonographic gestational age 34 weeks 4 days and sonographic due date of 03/03/2023. Sonographic age 1 week ahead of the clinical age. Estimated weight 58th percentile. Abdominal circumference 71st percentile. Dictated by Musa Stauffer MD @ 01/23/2023 9:20:45 AM (Electronically Signed)
== END 2023-01-22 12:46 | disposition home or self-care (01) ==
LOC: US 12:46
PROVIDERS: PCP Family Medicine; Visit Provider Advanced Practice Midwife
DX: O09.513 Supervision of elderly primigravida, third trimester (principal); Z3A.34 34 weeks gestation of pregnancy
CPT/HCPCS: 76816

== ENCOUNTER 2023-02-08 14:51 | Outpatient (CLI) | payer OTHER, SELFPAY ==
[2023-02-10 13:17] LABS: Strep B DNA Probe Negative (Negative); Strep B Pen/Amox Allergy No
== END 2023-02-08 14:52 | disposition home or self-care (01) ==
LOC: NFLDREF 14:52
PROVIDERS: PCP Family Medicine; Visit Provider Advanced Practice Midwife
DX: Z34.93 Encounter for supervision of normal pregnancy, unspecified, third trimester (principal); Z3A.36 36 weeks gestation of pregnancy
CPT/HCPCS: 87081; 87653

== ENCOUNTER 2023-03-08 12:47 | Outpatient (CLI) | payer OTHER, SELFPAY ==
--- NOTE | 2023-03-08 13:00 | CRLHL7_ITS ---
For Patients: As a result of the Century Cures Act, medical imaging exams and procedure reports are released immediately into your electronic medical record. You may view this report before your referring provider. If you have questions, please contact your health care provider. INDICATION: IVF, AMA - BPP COMPARISON: 01/22/2023 TECHNIQUE: Real time schwarz scale imaging of the fetus was performed. Without non-stress testing. FINDINGS: Sonographic imaging demonstrates a single living intrauterine gestation. Fetus demonstrates a regular cardiac rate of 142 beats per minute. Fetus has a vertex position. The amniotic fluid volume appears upper limits of normal and there is a single deepest pocket measurement of 8.3 cm. JAVI 24.7 cm. The fetus was active and demonstrated normal breathing movements. There was normal flexion and extension of the trunk and extremities. IMPRESSION: Normal biophysical profile score of 8 out of 8. JAVI 24.7 cm, upper limits of normal. Dictated by Musa Stauffer MD @ 03/09/2023 1:40:50 PM (Electronically Signed)
== END 2023-03-08 12:48 | disposition home or self-care (01) ==
LOC: US 12:47
PROVIDERS: PCP Family Medicine; Visit Provider Advanced Practice Midwife
DX: O09.529 Supervision of elderly multigravida, unspecified trimester (principal); O09.819 Supervision of pregnancy resulting from assisted reproductive technology, unspecified trimester; Z3A.00 Weeks of gestation of pregnancy not specified
CPT/HCPCS: 76819

== ENCOUNTER 2023-03-09 07:01 | Inpatient (IN) | payer OTHER, SELFPAY ==
[2023-03-09] VITALS (32 sets, daily range): BP systolic 108–166; BP diastolic 57–91; PULSE 77–118; RESP 16; TEMP 36.6–37; O2SAT 81–100; BMI 25.2
--- NOTE | 2023-03-09 08:08 | W.PM.LDBA ---
Subjective History of Present Illness Date Seen: 03/09/23 Narrative: Patient is being admitted to Labor and Delivery for IOL for AMA, IVF, and mild polyhydramnios diagnosed yesterday. She is a 38 year old at 40.1 weeks gestation. Her full history and physical was dictated by Santiago Chance CNM on 02/15/23. Please see this for details. Specific Issues/Plans G 2 P 0010 H&P on 02/15/23 by Santiago Chance CNM : Jose Ramon 1. achieved through IVF Level 2 ultrasound at 20 weeks with echo. Growth ultrasound at 32 weeks: 58%ile Weekly NST starting at 36 weeks Consider delivery at 39 weeks: declines 2. Advanced maternal age. Patient will be 38 years old at time of delivery Genetic screening: It sounds like this was completed prior to embryo transfer. We do not have records of this. Level 2 ultrasound at 20 weeks: MFM: Posterior placenta previa. No anomalies. normal growth. normal JAVI. long, closed cervix. - echo and f/u on previa scheduled in 4 weeks w/ MFM. Echo: normal Growth ultrasound between 32 and 36 weeks Weekly NST starting at 36 weeks Delivery between 39 and 40 weeks 3. Subchorionic hemorrhage measuring 14 x 4 x 9 mm. 4. Rubella non-immune. Rec. PP vaccine. 5. Placenta previa. Will recheck at MFM in 4 weeks. 11/03/22: Placenta posterior and previa HAS RESOLVED. No anomalies. Growth and EFW consistent with dating. Covid: not vaccinated. Recommended. Tdap: declines. Had a reaction to it as a baby. Flu: Declines OB - Problem Based A/P Additional Plan (1) Encounter for induction of labor: Status: Acute (2) Conceived by in vitro fertilization: Status: Acute (3) Advanced maternal age (AMA) in : Status: Acute (4) Polyhydramnios: Status: Acute Plan ASSESSMENT:? at 40.1 weeks gestation? GBS negative? AMA and IVF complicating Mild polyhydramnios?JAVI 24.7 Medical IOL? ?? PLAN:? 1. Reviewed risks and benefits of IOL with Pitocin vs Cytotec. Pt prefers Cytotec. Pitocin to follow if needed.? 2. Candidate for analgesia of choice. Planning unmedicated .? 3. Anticipate NVD? 4. No IV placement needed at this time. Consider placement if patient condition changes 5. Monitoring per Cytotec policy? ? Delivery/Labor/Induction Plan Plan: induction Induction method: per misoprostol protocol OB Result Labs Blood Type: A (+) positive Rubella: nonimmune RPR/VDLR: nonreactive GBS Status: negative HBsAG: negative OB Exam Physical Exam Narrative: Psychiatric:? Alert and oriented x3? HEENT:? Normocephalic, atraumatic? Neck:? Supple without adenopathy or thyromegaly? Lungs:? Clear to auscultation bilaterally? Heart:? Regular rate and rhythm, no murmur, rub or gallop? Abdomen:? Soft, nontender, and gravid? Extremities:? No edema or erythema? Cervical exam performed yesterday in clinic and was 1/50%. Did not repeat exam today. States that she has only had a few sporadic contractions overnight. Detailed Labor and Delivery Exam Patient Gravid: Yes Contraction Frequency: rare contractions noted by TOCO Tachysystole: No Fetus (Single) Amniotic Membrane Status: intact Heart Rate Baseline: 135 Monitor Accelerations: Present Monitor Decelerations: None Glove Operator Variability: Moderate (6-25)
[2023-03-09] MEDS: miSOPROStoL 25 MCG/0.25 TABLET VAGINAL ×2 (08:36→11:32)
--- NOTE | 2023-03-09 17:15 | P.OBPN_ITS ---
Subjective Date Seen: 03/09/23 Narrative: Shortly after Yamilet received her second dose of vaginal Cytotec she SROM with clear fluid. she had not been feeling contractions before this occurred. She was given the option for a SVE at that time but declined. Decided to proceed with expectant management for the next few hours to see if she progressed. Shortly after she began to feel more contractions. Her contractions increased in frequency and intensity over the next few hours. She was laboring in multiple positions and did labor in the tub for a while. She is supported by her partner and her telecommunications support. She requested a SVE at this time. She was found to be 5cm/90%/-1. Her fluid continues to be clear and she is coping well with contractions with good support. Will proceed with expectant management and anticipate . Objective Vital Signs: Last Vital Signs Temp 97.8 F 03/09/23 16:39 Pulse 87 03/09/23 16:41 Resp 16 03/09/23 11:30 BP 137/87 03/09/23 16:41 Pulse Ox 100 03/09/23 16:39 Pelvic Exam Dilation (cm): 5 Effacement (%): 90 Station: -1 Contractions Monitor mode: External Contraction Frequency: 1-4 Contraction pattern: Regular Contraction intensity: Strong/Firm Assessment Assessment: active labor Station: -1 Amniotic Membrane Status: SROM Status: Category l Heart Rate Baseline: 145 Long-Term Variability: Moderate (6-25) Monitor Accelerations: Present Monitor Decelerations: None Plan Plan: Expectant management. Consider IV placement if condition changes. Intermittent auscultation per policy with 10-20 min monitoring every 2 hours if category 1 tracing. No medical intervention at this time. Mild polyhydramnios, but SROM with well applied head to the cervix. Anticipate .
[2023-03-09] MEDS: LIDOCAINE 2% (PF) 5 ML VIAL EPIDURAL (20:53)
[2023-03-09] MEDS: ROPIVACAINE 0.2% 100 ml 100 ML 12 MG EPIDURAL (20:53)
--- NOTE | 2023-03-09 20:58 | P.ANBPRC_ITS ---
PFSH PFS Medical History Colon polyp ?K63.5 - Polyp of colon (ICD-10) Pelvic pain ?R10.2 - Pelvic and perineal pain (ICD-10) Family history of colon cancer ?Z80.0 - Family history of malignant neoplasm of digestive organs (ICD-10) Primary oligomenorrhea ?N91.3 - Primary oligomenorrhea (ICD-10) Polycystic ovary syndrome ?E28.2 - Polycystic ovarian syndrome (ICD-10) Ectopic ?O00.90 - Unspecified ectopic without intrauterine (ICD- 10) Surgical History History of laparoscopy (09/30/20) ?Z98.890 - Other specified postprocedural states (ICD-10) History of breast biopsy (04/2020) ?Z98.890 - Other specified postprocedural states (ICD-10) Family History Sister Colon cancer Family history of colon cancer Father High cholesterol Paternal Grandmother Stroke Breast cancer, Onset Age: 80 Social History Narrative: Relationship status: . 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 E cigarettes: No Illicit/recreational drug use: No Alcohol: 2-3 servings /week What is your current living situation?: I presently have a place to live Problems where you live: no known problems In the past 12 months, utilities in danger of being shut off: no In past 12 months, lack of transportation kept you from medical appts, meetings, work, or getting things needed for daily living: no In the past 12 mos, have been you worried that your food would run out before you had money to buy more?: never true In the past 12 mos, the food you bought just didn't last and you didn't have money to buy more?: never true Smoking Status: Never smoker How often does anyone, including family, friends and others, physically hurt you : never How often does anyone, including family, friends and others, insult or talk down to you: never How often does anyone, including family, friends and others, threaten you with harm: never How often does anyone, including family, friends and others, scream or curse at you: never Little interest or pleasure in doing things: several days Feeling down, depressed, or hopeless: not at all Meds Home Medications and Allergies Home Medications Medication Instructions Recorded Confirmed Type docosahexaenoic acid 200 mg mg PO 08/02/22 03/08/23 History capsule ( DHA) aspirin 81 mg tablet,delayed 81 mg PO QDAY 09/22/22 03/08/23 History release (Adult Low Dose Aspirin) Allergies Allergy/AdvReac Type Severity Reaction Status Date / Time No Known Allergies Allergy Verified 03/08/23 14:20 Results Vital Signs Vital Signs: Last Vital Signs Temp 97.8 F 03/09/23 16:39 Pulse 104 H 03/09/23 20:53 Resp 16 03/09/23 11:30 BP 143/75 H 03/09/23 20:53 Pulse Ox 100 03/09/23 20:50 Weight: 77.7 kg Height: 175.26 cm Anesthesia Procedures Epidural Insertion Patient Location: OB Start Time: 20:30 Stop Time: 21:10 Start Date: 03/09/23 Stop Date: 03/09/23 Reason for Block: primary anesthetic Patient Position: sitting Performed By: Kurt Perkins Preanesthetic Checklist: IV checked, risks and benefits discussed, surgical consent, monitors and equipment checked, pre-op evaluation, timeout performed and anesthesia consent Prep: chlorhexidine gluconate Monitoring: blood pressure monitoring, court monitor, continuous pulse oximetry and heart rate Approach: midline Vertebral Space: lumbar (1-5) Needle Type: Tuohy needle Injection Technique: continuous catheter (catheter) Needle gauge: 17 Needle Length (cm): 10 cm Needle Insertion Depth (cm): 5 Catheter Gauge: 19 Catheter Type: multi-orifice Catheter at skin depth (cm): 10 Test Dose Result: negative and lidocaine 1.5% with epinephrine 1 to 200,000
[2023-03-10] VITALS (18 sets, daily range): BP systolic 104–149; BP diastolic 53–73; PULSE 70–97; RESP 16; TEMP 36.6–37; O2SAT 96–98
--- NOTE | 2023-03-10 00:50 | W.PM.VAGDE_ITS ---
OB Procedure Vag Delivery Mother Details Mother Details: The patient is a 38 year-old, 2, Para 0, admitted on 03/09/23 at Days gestation. : 2 Para: 1 Weeks Gestation: 40.2 Admission Date: 03/09/23 Additional Details Amniotic Membrane Status: SROM Amniotic Membrane Rupture Date: 03/09/23 Amniotic Membrane Rupture Time: 12:16 Amniotic Membrane Fluid Description: Clear Analgesia/Anesthesia Type: Epidural and Nitrous Oxide Waterbirth: No Pitcoin: Yes Intrapartal Events: Labor Augmentation, Labor Induction and Prolonged 2nd Stage >2.5 Hrs Induction Method: per misoprostol protocol Delivery augmentation: pitocin Labor Onset: 12:16 Complete: 18:04 (presumed with urge to push) Pushin:08 (paused pushing from 2030 until 2220.) Heart: heart tones during second stage were category 2. Moderate variability, baseline 145, +accels, some variable and occasional late decels wiht good return to baseline. Delivery Details Delivery Date: 03/10/23 Delivery Time: 00:12 Route of delivery: Infant Gender: Female Viability: Alive; Heart Rate Present Position at Delivery: OA Delivery Details: Patient was admitted for IOL for polyhydramnios, AMA and IVF and pro gressed after 2 doses of Cytotec and Pitocin augmentation the end. SROM noted at 1216 with clear fluid. Patient was complete at 1808 and pushing at 1808. She pushing until she had an epidural. She then paused pushing and positioning was performed to aid with positions and descent. Pushing resumed at 2220. of a viable female at 0012 in left tilt. Vertex delivered OA with a hand next to her face posteriorly. No nuchal cord or shoulder. Body delivered easily and without incident. Infant passed to mothers abdomen with a vigorous cry. Cord was clamped and cut at > 5 minutes. APGARS were 9 at one minute and 9 at five minutes respectively. Mouth was bulb suctioned. Intact placenta with a 3 vessel cord delivered spontaneously at 0022. Fundus firm. 2nd degree identified and repaired in typical fashion. QBL 100 cc. Mother and baby stable; mother plans to breastfeed. Infant weight pending.? 1 Minute Interval Total Score: 9 5 Minute Interval Total Score: 9 Additional Details Shoulder Dystocia: No Placenta Delivery Time: 00:22 Placental Delivery Description: Spontaneous Delivery repair: Vicryl Procedure Done: Global Blood Loss: 100 Laceration: Perineal - 2nd Degree Episiotomy Description: None Blood Loss Measurement Type: QBL Bakri Used: No Sponge/Need Count Correct: Yes Cord Vessel Description: 3 Vessels Event Summary Status: Mother and were stable after delivery. Disposition: floor
--- NOTE | 2023-03-10 00:51 | P.OBPN_ITS ---
Subjective Time Seen by Provider: 23:15 Date Seen: 03/09/23 Narrative: Yamilet continued to progress to complete. She began pushing with an urge to push at 1808. She continued to push in multiple positions. She was believed to be in an OP position and many position changes were performed with the RNs and her vice president marketing & development to assist with baby descent and positioning. After pushing for a while with a stall in descent and a discussion on options she decided to get an epidural. Placement began at 2030. After its placement she was not longer feeling the urge to push and was allowed to labor down while position changes were performed. she tolerated all of this very well. She resumed pushing at 2220 and was pushing effectively with pushing after coaching. After the resumption of pushing it was noted that her contractions began to space apart. After a discussion of the advantages and disadvantages she was agreeable to starting Pitocin augmentation. Objective Vital Signs: Last Vital Signs Temp 97.8 F 03/09/23 16:39 Pulse 95 03/10/23 00:38 Resp 16 03/09/23 11:30 BP 124/71 03/10/23 00:38 Pulse Ox 100 03/09/23 20:50 Pelvic Exam Dilation (cm): 10 Effacement (%): 100 Station: +2 Contractions Monitor mode: External Contraction pattern: Regular Contraction intensity: Strong/Firm Pitocin Rate (mU/min): 2 Assessment Assessment: active labor Station: -1 Amniotic Membrane Status: SROM Status: Category l Heart Rate Baseline: 145 Intermediate Variability: Moderate (6-25) Monitor Accelerations: Present Monitor Decelerations: Late Plan Plan: Continue to labor. Anticipate . Pitocin augmentation until adequate contractions. Epidural in place for pain menagement.
[2023-03-10] MEDS: OXYTOCIN 30 unit/500 ML in NS 30 UNIT/500 ML BAG 300 UNIT IVPB (02:15)
[2023-03-10] MEDS: DOCUSATE SODIUM 100 MG CAPSULE PO (18:34)
[2023-03-10] MEDS: ACETAMINOPHEN 500 MG TABLET 1000 MG PO (21:15)
[2023-03-11 00:13] VITALS: BP 108/71; PULSE 83; RESP 16; TEMP 36.7; O2SAT 98
--- NOTE | 2023-03-11 08:53 | P.DS_ITS ---
DS: Providers Provider Time Seen by Provider: 08:30 Date Seen: 03/11/23 Date of admission: 03/09/23 07:01 Primary care physician: Cait Guadalupe DO Admitting Clinician: Cassie Blum MD Attending Physician on discharge: Sarah Chance CNM Date of Discharge: 03/11/23 DS: Diagnosis Discharge Diagnosis (1) state: Status: Acute (2) NVD (normal vaginal delivery): Status: Acute (3) Lactating mother: Status: Acute (4) Second degree laceration of perineum, delivered, current hospitalization: Status: Acute Exam Narrative: Exam Narrative: VSS, afebrile GENERAL APPEARANCE: ?normal affect, alert, no distress MOOD: ?appropriate HEENT: normocephalic, neck supple, full ROM CHEST: ?Symmetrical chest wall movement. ?Normal respiratory effort. ?Clear to auscultation HEART: ?regular rate and rhythm ABDOMEN: ?soft, non-tender. Uterine fundus is firm, at Umbilicus, Midline and is appropriate for the stage of recovery. ?Bowel sounds present. PERINEUM: ?mild edema of the perineum, there is a second degree laceration that is healing well. EXTREMITIES: ?normal and trace edema Const: Vital Signs, click to edit/add: Vital Signs - 24 hr 03/10/23 12:30 03/10/23 17:15 03/10/23 21:00 Temperature 97.9 F 97.8 F 98.6 F Pulse Rate [Pulse Oximeter] 88 70 78 Respiratory Rate 16 16 16 Blood Pressure [Le ft Arm] 110/70 109/72 110/69 Pulse Oximetry 96 97 98 Oxygen Delivery Me thod Room Air Room Air Room Air 03/11/23 00:13 Temperature 98.0 F Pulse Rate [Pulse Oximeter] 83 Respiratory Rate 16 Blood Pressure [Le ft Arm] 108/71 Pulse Oximetry 98 Oxygen Delivery Me thod Room Air Documenting provider has reviewed patient's vital signs: yes OB - DS: Summary Hospital Course Hospital Course: Yamilet is a 38 y.o. G 2 P 1 who was admitted to [facility] for IOL for mild polyhydramnios, AMA and IVF. ?She had an uncomplicated NVD The patient feels well. ?The pain is well controlled with current medications. ?She has no new complaints. ?She is breast feeding and reports things are going well.? the patient has done well.? Vitals have been stable.? She has remained afebrile.? Has a good appetite, is tolerating a general diet. ?She is voiding without difficulty.? She is passing gas and has not had a bowel movement.? She is ambulating and denies any dizziness.? Has Small amount of rubra lochia. She is planning NFP for prevention. Problems: none plan: Discharge home with baby. Follow up in 2 weeks and 6 weeks. , may follow up with if needed Peripartum Data Infant delivery method: Vaginal Laceration description: Perineal - 2nd Degree complications: none Infant Gender: Female Discharge Plan: Home Status at Discharge Functional status at discharge: independent ambulation Overall status at discharge: patient is progressing back to baseline Time Spent with Patient Time attestation: Total time spent providing and/or coordinating discharge services: Time spent: Less than 30 minutes Discharge Plan Discharge Disposition: Home, Self-Care Date of Admission: 03/09/23 07:01 Attending Provider on Discharge: Vicky Kim Primary Care Provider: Cait Guadalupe Condition: Stable Anticipated Discharge Date/Time: 03/11/23 11:00 Discharge Medications: New docusate sodium 100 mg Capsule 100 mg PO BID PRNQty: 100 0RF Rx Instructions: Take 1 cap 1-2 times a day as needed for constipation ibuprofen 600 mg Tablet 600 mg PO Q6H PRNQty: 60 0RF Continued DHA 200 mg capsule PO Discontinued ondansetron 4 mg tablet,disintegrating 4 mg PO Q6H PRN (Reason: nausea and vomiting) Qty: 30 0RF aspirin [Adult Low Dose Aspirin] 81 mg tablet,delayed release (DR/EC) 81 mg PO QDAY Discharge Orders: Discharge Order (Routine); Ordered 03/11/23 Ordered By: Vicky Kim Patient Education: OB Over the Counter Medication Information, OB Vaginal/Breast Feeding Additional Instructions: Follow up in 2 weeks and 6 weeks Activity Level: Activity as Tolerated Discharge Diet: Regular Follow Up Appointments: Cait Guadalupe DO [Primary Care Provider] - Forms: [facility] Info Instructions
[2023-03-11] MEDS: DOCUSATE SODIUM 100 MG CAPSULE PO (09:41)
== END 2023-03-11 12:50 | disposition home or self-care (01) | DRG 807 ==
PROVIDERS: Admitting Provider Obstetrics & Gynecology; PCP Family Medicine; Visit Provider Advanced Practice Midwife
DX: O40.3XX0 Polyhydramnios, third trimester, not applicable or unspecified (principal); Z37.0 Single live birth; O70.1 Second degree perineal laceration during delivery; O63.1 Prolonged second stage (of labor); Z3A.40 40 weeks gestation of pregnancy
CPT/HCPCS: 01967; 59200; A9270; J2371; J2795

== ENCOUNTER 2023-03-26 13:46 | Outpatient (CLI) | payer OTHER, SELFPAY ==
--- NOTE | 2023-03-26 14:00 | CRLHL7_ITS ---
For Patients: As a result of the Cures Act, medical imaging exams and procedure reports are released immediately into your electronic medical record. You may view this report before your referring provider. If you have questions, please contact your health care provider. LEFT BREAST ULTRASOUND 03/26/2023 CLINICAL HISTORY: Mastitis, palpable area, pain. Rule out abscess. COMPARISON: None. TECHNIQUE: Real-time ultrasound imaging of LEFT breast with imaging documentation. Radiologist was not present during the exam. FINDINGS: There is a circumscribed hypoechoic nodular lesion within the LEFT breast posterior depth 4 o`clock, 7 cm from the nipple measuring 2.1 x 1.1 x 1.5 cm. No internal vascularity. Increased posterior through transmission noted. IMPRESSION: 2.1 cm hypoechoic nodular lesion within the LEFT breast posterior depth 4 o`clock 7 cm from the nipple. Differential diagnosis includes galactocele, complicated cyst, abscess or fibroadenoma. RECOMMENDATIONS: Short term interval followup after course of antibiotics. Diagnostic unilateral ultrasound and bilateral mammogram evaluation in 3 weeks recommended. [facility] will contact the patient. BI-RADS Category 3: Probably Benign Dictated by Musa Stauffer MD @ 04/02/2023 9:11:25 AM PADMA/sheila DW/Dictated by: Musa Stauffer MD @ 04/02/2023 9:11:00 AM (Electronically Signed)
== END 2023-03-26 13:47 | disposition home or self-care (01) ==
LOC: US 13:47
PROVIDERS: PCP Family Medicine; Visit Provider Physician Assistant
DX: O91.219 Nonpurulent mastitis associated with pregnancy, unspecified trimester (principal)
CPT/HCPCS: 76642

== ENCOUNTER 2023-03-30 10:58 | Outpatient (CLI) | payer OTHER, SELFPAY ==
--- NOTE | 2023-03-30 17:00 | P.LACCB_ITS ---
Consult Note - Mom Date of Visit Date of visit: 03/30/23 microsoft infrastructure consultant: Gabriela Lainez Visit Code: Visit Patient's Information Phone number: [phone] : 2 Para: 1 Allergies No Known Allergies Allergy (Verified 03/26/23 11:39) Mother's Medical History: Medical History (Updated 03/26/23 @ 12:39 by Erica Archer PA-C) Conceived by in vitro fertilization ?Z78.9 - Other specified health status (ICD-10) Hx mastitis Hx galactocele Type of Contraception: NFP Delivery Information Delivery type: Vaginal Weeks Gestation: 40.2 Gestational Age: AGA Weight: 3.726 kg Discharge Weight: 3.752 kg Baby's Information Baby's Age at Visit: 3 weeks Baby's Provider or Clinic: Jeremiah Brenner NP Jaundice: No Reason for Consult Reason for Consult: difficulty/pain with latching on the left side Past Experience Past Experience: No Current Frequency of Day Feedings: every 2.5 - 3 hours around the clock Both Breasts: Yes Suck: strong Latch: wide Length of Time: 8 - 10 min/side Pumping Pumping: No Supplementing EMB Supplement: No Formula Supplement: No Baby Elimination Number of Wet Diapers a Day: almost every feeding Number of BM a Day: at least every other feeding, yellow and seedy Breast/Nipple Condition Breast Information: WNL Maternal Nipple Condition - Left: Common Nipple and Cracking/ Fissures Maternal Nipple Condition - Right: Common Nipple Sore Nipples: Yes (left) Onsite Pre-Feed weight: 3.726 kg Post-Feed weight: 3.752 kg Milk Transferred (mL): 26 Assessments/Interventions Assessments/Interventions: Met with mom and this now 3 week old ex- term AGA baby for consult. Mom reports is comfortable on the right side and she hasn't had any issues, however it's very very painful on the left. She reports her left nipple is cracked in a few places and around Thanksgiving she developed s/s of mastitis and a plugged duct. She was prescribed dicloxacillin on 03/21 and although her fever had resolved by 03/26 when she was seen for her 2 week pp check, her nipple was still damaged and the plugged duct had not resolved. She was sent for a breast U/S and dx'd with a galactocele. At that visit the prov ider changed her abx to clindamycin and suggested homemade APNO ointment for possible yeast on her left nipple. Today she presents to her appointment stating she's used the APNO ointment after almost every feeding and has noticed some improvement in one of her fissures. She reports the initial latch and feeding baby on the left side is now comfortable, but once baby has finished she begins to have pain in her nipple. Describes the pain as throbbing or burning and it radiates to her axilla; states it's worse overnight. She denies any itching, that the nipples alcides after baby unlatches, or nipple pain with temperature changes. Breasts WNL- symmetrical with rounded lower quadrants, intramammary distance is < 1.5 inches. Nipples are everted and the right doesn't flatten or retract on compression; no damage noted. On the left side the areola has a small indentation on the underside of the nipple and when that breast is compressed, the indentation is more pronounced and flattens the nipple a little. A fissure is noted in the center of the nipple that mom reports is healing, another fissure at the base of the nipple is newer and more painful for mom. The nipple/areola isn't shiny, red, or scaly. Galactocele felt on the outer aspect of left breast, mom denies any changes in size and reports it's a little sore but she had been massaging it rather firmly before she learned it wasn't a plugged duct. Baby is nursing every 2.5 - 3 hours for about 10 min/side, mom offers both sides at each feeding. She hasn't started pumping or offering any EBM/formula. Baby has gained 21 grams/day since her last visit on 03/20/23. Mom denies any caput or cephalohematoma at delivery. She reports baby favors turning her head to the right. Her palate is a little high. Her upper frenulum is a little tight as her gums alcides when flanging her upper lip but no suck blister noted. She has a strong suck on a finger, but the tongue is a little humped in the back and she's gags on a finger, mom reports she sometimes gags on her pacifier as well. Her tongue has good lateral movement and extends consistently past the gum line. Her lower frenulum may be posterior. No s/s of yeast in baby's mouth. Mom latched baby to the left breast and the latch was wide and asymmetrical, mom was comfortable. Baby nursed about 10 minutes before coming off on her own. Mom burped her and offered that side again and she nursed a few more minutes. Mom offered the right side and baby nursed about another 10 minutes, mom was comfortable on the right breast but reports the left nipple was starting to burn. Baby transferred 26 ml. We discussed that babies her age usually need 3 - 4 oz at each feeding. This feeding may have been less b/c mom nursed her about 90 minutes ago. Overall her weight gain is WNL. Mom was shown a few exercises/stretches to reduce baby's gag reflex and to help her gain more equal ROM in her neck. Plan: 1. Continue to nurse baby ALD, offering both sides like she has been. Reviewed she should have at least 8 feedings in 24 hours. 2. Suggested mom hand express/use the [place]/pump to comfort if needed after nursing. If needed, ok to pump the left side for 24 hours to give it a break. She was measured and a flange size suggested, handout given. Also suggested she pump more regularly when baby is 4 - 5 weeks as that is a good time for dad to teach her how to take a bottle. 3. Suggested mom try a salt water rinse in the daytime for her left nipple. Instructed her to apply APNO ointment after every feeding for the next week. 4. Encouraged her to do the exercises with baby 3 - 5 times/day. She has a craniosacral therapist and suggested she make an appointment for both of them. 5. Reviewed there's really nothing to do for the galactocele, continue to monitor. 5. Will f/u by phone on 04/06- if no improvement could talk to provider about fluconazole and/or pediatric dental evaluation. Instructed mom to call with worsening symptoms. Meds Home Medications and Allergies Home Medications Medication Instructions Recorded Confirmed Type docosahexaenoic acid 200 mg mg PO 04/05/23 11/27/23 History capsule ( DHA) Saccharomyces boulardii 250 mg 250 mg PO BID 03/26/23 03/26/23 History capsule (Daily Probiotic (S. boulardii)) Allergies Allergy/AdvReac Type Severity Reaction Status Date / Time No Known Allergies Allergy Verified 03/26/23 11:39
== END 2023-03-30 10:59 | disposition home or self-care (01) ==
PROVIDERS: PCP Family Medicine; Visit Provider Registered Nurse
DX: P92.5 Neonatal difficulty in feeding at breast (principal)
CPT/HCPCS: 99211

== ENCOUNTER 2023-04-13 10:32 | Outpatient (CLI) | payer OTHER, SELFPAY ==
--- NOTE | 2023-04-13 10:45 | CRLHL7_ITS ---
For Patients: As a result of the Cures Act, medical imaging exams and procedure reports are released immediately into your electronic medical record. You may view this report before your referring provider. If you have questions, please contact your health care provider. DIGITAL DIAGNOSTIC BILATERAL MAMMOGRAM USING TOMOSYNTHESIS AND COMPUTER-AIDED DETECTION LEFT BREAST ULTRASOUND CLINICAL HISTORY: LEFT breast lump/infection/abscess. COMPARISON: 06/03/2019, 03/26/2023. TECHNIQUE: Digital BILATERAL mammogram in four projections. Tomosynthesis and CAD utilized. Real-time ultrasound imaging of LEFT breast with imaging documentation. Scanning was performed by both the technologist and the radiologist. BREAST COMPOSITION: The breasts are extremely dense, which lowers the sensitivity of mammography. FINDINGS: 3D CC/MLO BILATERAL mammogram images submitted. No suspicious masses or architectural distortion. Previous biopsy of a fibroadenoma noted at 12 o`clock. No adenopathy. No suspicious calcifications. Targeted LEFT breast ultrasound performed. At 4 o`clock 7 cm from the nipple, the previously noted fluid collection has since resolved. No abscess or abnormal vascularity. Incidental previously biopsied fibroadenoma at 12 o`clock and incidental benign fibroadenoma in the retroareolar space. IMPRESSION: Resolution of previously noted LEFT breast abscess. No suspicious findings. Benign fibroadenomas. RECOMMENDATIONS: Clinical follow-up. Routine screening mammography. Results and recommendations discussed with the patient. BI-RADS Category 2: Benign A lay language report of this examination will be provided to the patient. Dictated by Musa Stauffer MD @ 04/13/2023 11:37:33 AM jj/Dictated by: Musa Stauffer MD @ 04/13/2023 11:37:00 AM (Electronically Signed)
--- NOTE | 2023-04-13 11:15 | CRLHL7_ITS ---
For Patients: As a result of the Cures Act, medical imaging exams and procedure reports are released immediately into your electronic medical record. You may view this report before your referring provider. If you have questions, please contact your health care provider. PLEASE SEE DIGITAL DIAGNOSTIC BILATERAL MAMMOGRAM PERFORMED SAME DAY CRL:kamran andrew/Dictated by: Musa Stauffer MD @ 04/13/2023 11:47:00 AM (Electronically Signed)
== END 2023-04-13 10:33 | disposition home or self-care (01) ==
LOC: MAMMO 10:32
PROVIDERS: PCP Family Medicine; Visit Provider Physician Assistant
DX: N63.20 Unspecified lump in the left breast, unspecified quadrant (principal); N60.09 Solitary cyst of unspecified breast
CPT/HCPCS: 76642; 77066; G0279

== ENCOUNTER 2025-03-12 10:12 | Outpatient (CLI) | payer OTHER, SELFPAY | END 2025-03-12 10:13 | disposition home or self-care (01) | PROVIDERS: PCP Physician Assistant Medical; Visit Provider Physician Assistant Medical | DX: Z00.00 Encounter for general adult medical examination without abnormal findings (principal); R53.83 Other fatigue | CPT/HCPCS: 80053; 80061; 82306; 82607; 82728; 84443 ==